=== PATIENT | male | born 1950 | race Caucasian/White ===

== ENCOUNTER 2016-07-29 07:53 | Inpatient (IN) | payer MEDICARE, MEDICAID ==
[2016-07-29 07:53] VITALS: BMI 30.9
--- NOTE | 2016-07-29 08:37 | C.PDOC ---
History Of Present Illness 65 yo male w/PMhx of ESRD on HD(MWF) come in for evaluation of Left sided chest pain intermittent for past 2-3 days. Pt describes pain as burning sensation and associated with abdominal pain, "bloody stool". Otherwise, pt denies recent illness, headache, dizziness, visual changes, focal deficits, palpitation, dyspnea, wheezing, cough, vomiting, food intolerance, back pain. Last dialysis- yesterday, completed. At the time of evaluation, pt appears somnolent , saying " I was unable to sleep normal with this pain", although not in any apparent distress. Time Seen by Provider: 07/29/16 08:00 Chief Complaint (Nursing): Chest Pain History Per: Patient History/Exam Limitations: no limitations Onset/Duration Of Symptoms: Days (2-3), Intermittent Episodes Current Symptoms Are (Timing): Still Present Severity: Moderate Quality: Burning Past Medical History Reviewed: Historical Data, Nursing Documentation, Vital Signs Vital Signs: Last Vital Signs Temp 98 F 07/29/16 15:44 Pulse 77 07/29/16 15:44 Resp 21 07/29/16 15:44 BP 156/69 H 07/29/16 15:44 Pulse Ox 99 07/29/16 15:44 - Medical History PMH: CAD, Diabetes, Gastrointestinal Ulcer, HTN, Hypercholesterolemia, End Stage Renal Disease, Chronic Kidney Disease Surgical History: CABG, Cholecystectomy - [facility] Procedures HEMODIALYSIS (01/02/13) MEASURE CARDIAC SAMPL & PRESSURE, BILATERAL, PERC (08/27/15) PACKED CELL TRANSFUSION (01/02/13) PERFORMANCE OF URINARY FILTRATION, MULTIPLE (08/27/15) PLAIN RADIOGRAPHY OF MULT COR A GRAFT USING OTH CONTRAST (08/27/15) PLAIN RADIOGRAPHY OF MULT COR ART USING OTH CONTRAST (08/27/15) PLAIN RADIOGRAPHY OF RIGHT AND LEFT HEART USING OTH CONTRAST (08/27/15) VENOUS CATHETERIZATION FOR RENAL DIALYSIS (01/02/13) Family History: States: Unknown Family Hx - Social History Hx Tobacco Use: Yes Hx Alcohol Use: No Hx Substance Use: No - Immunization History Hx Tetanus Toxoid Vaccination: No Hx Influenza Vaccination: Yes Hx Pneumococcal Vaccination: Yes Review Of Systems Except As Marked, All Systems Reviewed And Found Negative. Constitutional: Negative for: Fever, Chills Eyes: Negative for: Vision Change ENT: Negative for: Throat Pain Cardiovascular: Positive for: Chest Pain. Negative for: Palpitations, Orthopnea , Edema, Light Headedness Respiratory: Negative for: Cough, Shortness of Breath, Wheezing Gastrointestinal: Positive for: Nausea, Abdominal Pain, Melena, Hematochezia. Negative for: Vomiting, Diarrhea, Hematemesis, Rectal Pain Genitourinary: Negative for: Dysuria, Frequency Musculoskeletal: Negative for: Back Pain Neurological: Negative for: Weakness, Numbness, Altered Mental Status, Headache , Dizziness Physical Exam - Physical Exam Appears: Well, Non-toxic, No Acute Distress Skin: Normal Color, Warm, Dry, No Rash Eye(s): bilateral: PERRL Oral Mucosa: Moist Throat: Normal Neck: Normal, Supple Cardiovascular: Rhythm Regular Respiratory: Normal Breath Sounds, No Stridor, No Wheezing Gastrointestinal/Abdominal: Soft, Tenderness (moderate epigastric tenderness), No Distention, No Guarding, No Rebound Rectal: Rectal Tone (normal), No Hemorrhoids, No Tenderness Back: No CVA Tenderness Extremity: Normal ROM, No Pedal Edema, No Deformity, Other (Left upepr arm AV shunt, (+) thrill, no cellulitis.) Neurological/Psych: Oriented x3, Normal Speech ED Course And Treatment - Laboratory Results Result Diagrams: 07/29/16 08:40 07/29/16 08:40 Lab Interpretation: Abnormal ECG: Interpreted By Ms ECG Rhythm: Sinus Rhythm ECG Interpretation: No Acute Changes, No Changes From Prior Interpretation Of ECG: SR@91/min, LAD, Q wave in III, no acute T wave or ST-T changes. O2 Sat by Pulse Oximetry: 95 Pulse Ox Interpretation: Normal - Radiology CXR: Interpreted by Ms CXR Interpretation: Yes: No Acute Disease (compare to old study, no new acute changes, s/p CABG) - CT Scan/US CT abd/pelvis Other Rad Studies (CT/US): Radiology Report Reviewed CT/US Interpretation: Accession No. : [id number]. Patient Name / ID : DIAZ BAH / [id number]. Exam Date : 07/29/2016 09:43:12 ( Approved ). Study Comment : Sex / Age : M / 65Y. Creator : Kermit Hassan. Dictator : Kermit Hassan. Travel Coordinator : Polyethylene Combiner : Kermit Hassan. Approver2 : Report Date : 07/29/2016 10:12:55. My Comment : . PROCEDURE: CT Abdomen and Pelvis without intravenous contrast. HISTORY: diffuse abdominal pain. COMPARISON: Comparison is made to the previous study dated 09/07/2012. TECHNIQUE: Axial and reformatted coronal and sagittal CT images of the abdomen and pelvis were obtained without IV or oral contrast administration.. Contrast Dose: 0. Radiation dose: Total exam DLP = 434.4 mGy-cm. This CT exam was performed using one or more of the following dose reduction techniques: Automated exposure control, adjustment of the mA and/or kV according to patient size, and/or use of iterative reconstruction technique. FINDINGS: LOWER THORAX : No evidence of acute pathology at the lung bases. Cardiomegaly is again noted. LIVER: No evidence of acute pathology in the liver. Mild hepatomegaly is again noted. GALLBLADDER AND BILE DUCTS: Status post cholecystectomy. The CBD is mildly dilated likely due to prior cholecystectomy. PANCREAS: Unremarkable. No gross lesion or ductal dilatation. SPLEEN: Unremarkable. ADRENALS: Unremarkable. No mass. KIDNEYS AND URETERS: The kidneys are small in size. No evidence of hydronephrosis. Small calcifications seen likely vascular. VASCULATURE: Unremarkable. No aortic aneurysm. BOWEL: Post bowel surgery and anastomosis seen at the right abdomen. No evidence of bowel obstruction. APPENDIX: No evidence of appendicitis. PERITONEUM: Unremarkable. No free fluid. No free air. LYMPH NODES: Unremarkable. No enlarged lymph nodes. BLADDER: The urinary bladder is not distended. REPRODUCTIVE: Prostate is normal in size. BONES: Degenerative changes are again seen. Intramedullary gigi is partially imaged at the right femur. OTHER FINDINGS: None. IMPRESSION: No evidence of acute pathology in the abdomen and pelvis. Status post small bowel surgery. Re- demonstration of dilated bowel loop at the left abdomen. No evidence of bowel obstruction. Progress Note: On re-eavluation, pt remained unchanged. case discussed with p t 's PMD and admission to telemetry with Dx: CP r/o WI, bloody stool r /o GI bleed arranged. Disposition - Disposition Disposition: HOSPITALIZED Disposition Time: 10:20 Condition: FAIR - Clinical Impression Clinical Impression: Chest pain, ESRD (end stage renal disease) on dialysis, GI bleed
[2016-07-29 08:47] LABS: BASO % 0.6 % (0.0-2.0); EOS # 0.2 K/uL (0.0-0.7); EOS % 3.5 % (0.0-4.0); LYMPH # 0.9 K/uL (1.0-4.3); LYMPH % 13.2 % (20.0-40.0); MEAN CELL VOLUME 89.7 fL (80.0-94.0); MEAN CORPUSCULAR HEMOGLOBIN 29.8 pg (27.0-31.0); MEAN CORPUSCULAR HGB CONC 33.2 g/dL (33.0-37.0); MEAN PLATELET VOLUME 9.3 fL (7.2-11.7); MONO # 0.8 K/uL (0.0-0.8); MONO % 12.1 % (0.0-10.0); NRBC % 0.1 % (0.0-2.0); RED CELL DISTRIBUTION WIDTH 15.7 % (11.5-14.5); WHITE BLOOD COUNT 6.7 K/uL (4.8-10.8)
[2016-07-29 08:57] LABS: INR 0.9
[2016-07-29 09:04] LABS: POTASSIUM 4.2 mmol/L (3.6-5.2)
--- NOTE | 2016-07-29 09:04 | RAD ---
PROCEDURE: CHEST RADIOGRAPH, 1 VIEW HISTORY: chest pain COMPARISON: Comparison is made to 08/25/2015 FINDINGS: LUNGS: Clear. PLEURA: No pneumothorax or pleural fluid seen. CARDIOVASCULAR: Normal. OSSEOUS STRUCTURES: No significant abnormalities. VISUALIZED UPPER ABDOMEN: Normal. OTHER FINDINGS: None. IMPRESSION: No significant interval change
[2016-07-29 09:06] LABS: BILIRUBIN,TOTAL 0.7 mg/dL (0.2-1.3)
[2016-07-29 09:07] LABS: ALB/GLOB RATIO 1.3 (1.0-2.1); CALCIUM 9.3 mg/dl (8.6-10.4); TOTAL PROTEIN 7.8 g/dL (6.3-8.3)
[2016-07-29 09:18] LABS: TROPONIN I 0.024 ng/mL (0.00-0.120)
[2016-07-29 09:32] LABS: URINE BACTERIA RARE (<OCC); URINE BILIRUBIN NEGATIVE (NEGATIVE); URINE BLOOD NEGATIVE (NEGATIVE); URINE COLOR Yellow (YELLOW); URINE GLUCOSE (UA) 1+ mg/dL (Normal); URINE KETONE NEGATIVE (NEGATIVE); URINE LEUKOCYTE ESTERASE NEG Leu/uL (Negative); URINE PROTEIN 2+ mg/dL (NEGATIVE); URINE UROBILINOGEN NORMAL mg/dL (0.2-1.0); WBC URINE 1 /hpf (0-5)
--- NOTE | 2016-07-29 10:14 | CT ---
PROCEDURE: CT Abdomen and Pelvis without intravenous contrast HISTORY: diffuse abdominal pain COMPARISON: Comparison is made to the previous study dated 09/07/2012 TECHNIQUE: Axial and reformatted coronal and sagittal CT images of the abdomen and pelvis were obtained without IV or oral contrast administration.. Contrast Dose: 0 Radiation dose: Total exam DLP = 434.4 mGy-cm. This CT exam was performed using one or more of the following dose reduction techniques: Automated exposure control, adjustment of the mA and/or kV according to patient size, and/or use of iterative reconstruction technique. FINDINGS: LOWER THORAX: No evidence of acute pathology at the lung bases. Cardiomegaly is again noted. LIVER: No evidence of acute pathology in the liver. Mild hepatomegaly is again noted. GALLBLADDER AND BILE DUCTS: Status post cholecystectomy. The CBD is mildly dilated likely due to prior cholecystectomy. PANCREAS: Unremarkable. No gross lesion or ductal dilatation. SPLEEN: Unremarkable. ADRENALS: Unremarkable. No mass. KIDNEYS AND URETERS: The kidneys are small in size. No evidence of hydronephrosis. Small calcifications seen likely vascular VASCULATURE: Unremarkable. No aortic aneurysm. BOWEL: Post bowel surgery and anastomosis seen at the right abdomen. No evidence of bowel obstruction. APPENDIX: No evidence of appendicitis. PERITONEUM: Unremarkable. No free fluid. No free air. LYMPH NODES: Unremarkable. No enlarged lymph nodes. BLADDER: The urinary bladder is not distended. REPRODUCTIVE: Prostate is normal in size. BONES: Degenerative changes are again seen. Intramedullary gigi is partially imaged at the right femur. OTHER FINDINGS: None. IMPRESSION: No evidence of acute pathology in the abdomen and pelvis. Status post small bowel surgery. Re- demonstration of dilated bowel loop at the left abdomen. No evidence of bowel obstruction.
[2016-07-29] MEDS: Nitroglycerin 2% Ointment Foilpak UD TOP SCH ×3 (12:23→23:57)
--- NOTE | 2016-07-29 18:33 | CON ---
DATE: 07/29/2016 REASON FOR CONSULTATION: Chest pain. HISTORY OF PRESENT ILLNESS: The patient is a 65-year-old male who has a history of hyperten kari, end-stage renal disease on hemodialysis, presented because of retrosternal chest pain. The pat bhavani was evaluated in the recent past and a Myoview stress test reported an apical ischemia. At that time, the patient refused cardiac catheterization and the case was discussed with the primary physic tanner. The patient at this time is chest pain free. He denies any associated diaphoresis, dizziness o r shortness of breath. The patient describes his pain as burning retrosternal. SOCIAL HISTORY: The patient is currently a nonsmoker. MEDICATIONS: Crestor 5 mg once a day, Lopressor 50 mg twice a day, nitro paste half an inch q. 6 suresh rs, Percocet 1 tablet q. 8 hours, Protonix 40 mg intravenously daily. REVIEW OF SYSTEMS: No fever or chills. No vomiting or diarrhea. The patient did report bloody stoo l. PHYSICAL EXAMINATION: GENERAL: The patient is a middle-aged male who does not appear to be in any distress. VITAL SIGNS: Blood pressure 159/77, heart rate 83, temperature 97.3, respirations 18. HEENT: Normocephalic. NECK: No JVD. CHEST: Clear. HEART: S1, S2 regular. ABDOMEN: Soft. EXTREMITIES: No edema. LABORATORY DATA: CBC: WBC 6.7, hemoglobin 12.3, hematocrit 37, platelet count 191,000. SMA-7: Sod ium 133, potassium 4.2, chloride 84, CO2 of 31, glucose 141, BUN 32, creatinine 5.5. One set of trop onin is negative. ProBNP is 4010. PT, PTT within normal limits. CBC of 6.7, hemoglobin 12.3, hemat ocrit 37, platelet count 191,000. Urine drug screen is negative. Stool occult blood is negative. A bdomen and pelvis CT scan: No evidence of acute pathology. status post small bowel surgery. EKG revealed sinus rhythm at rate of 91, left atrial enlargement, inferior Q-waves were noted. ASSESSMENT: 1. Chest pain, rule out myocardial infarction. 2. History of positive Myoview stress test for apical ischemia in the past. 3. End-stage renal disease on hemodialysis. 4. Hypertension. RECOMMENDATIONS: Continue Crestor at 5 mg once a day, Lopressor 50 mg twice a day. Start aspirin 81 mg once a day. Obtain an echocardiogram. Monitor EKG and serial cardiac enzymes. A GI evaluation is recommended as well as a repeat hemoglobin and hematocrit levels. Christian Hebert MD cc: [id number] TT: 07/29/2016 18:32:46 Confirmation # [id number] Dictation # [id number] mn
[2016-07-29] MEDS: Oxycodone/Acetaminophen 5/325 mg Tab PO PRN (20:13)
[2016-07-30] MEDS: Nitroglycerin 2% Ointment Foilpak UD TOP SCH ×3 (05:41→18:07)
[2016-07-30 07:52] LABS: BASO % 0.5 % (0.0-2.0); EOS # 0.3 K/uL (0.0-0.7); EOS % 5.5 % (0.0-4.0); HEMATOCRIT 37.1 % (35.0-51.0); LYMPH # 1.4 K/uL (1.0-4.3); LYMPH % 27.1 % (20.0-40.0); MEAN CORPUSCULAR HEMOGLOBIN 29.7 pg (27.0-31.0); MEAN PLATELET VOLUME 9.9 fL (7.2-11.7); MONO # 0.6 K/uL (0.0-0.8); MONO % 11.7 % (0.0-10.0); NRBC % 0.1 % (0.0-2.0); RED CELL DISTRIBUTION WIDTH 15.9 % (11.5-14.5); WHITE BLOOD COUNT 5.1 K/uL (4.8-10.8)
[2016-07-30 08:00] LABS: POTASSIUM 4.4 mmol/L (3.6-5.2)
[2016-07-30 08:02] LABS: ALB/GLOB RATIO 1.3 (1.0-2.1); BILIRUBIN,TOTAL 0.6 mg/dL (0.2-1.3); TOTAL PROTEIN 7.3 g/dL (6.3-8.3)
--- NOTE | 2016-07-30 10:58 | CP.PCM.CON ---
History of Present Illness - History of Present Illness History of Present Illness: Covering Dr Mariscal CC: chest pain, abdominal pain HPI: 65 year old Diabetic Hypertensive man with ESRD admitted with chest pain, and lower abdominal cramps yesterday. Today he feels well. He mentioned he saw blood in stool once. he denies constipation or diarrhea. His Hemoglobin has remained stable at 12 since admission yesterday. Cardiology consult has been requested to evaluate chest pain. Patient has a cardiac history. History is somewhat limited as patient is a poor historian. He mentions he had surgery for bleeding ulcer about 5 years ago, not sure if he ever had Colonoscopy. Review of Systems - Cardiovascular Cardiovascular: Chest Pain - Respiratory Respiratory: absent: Dyspnea - Gastrointestinal Gastrointestinal: Abdominal Pain, Dyspepsia, Hematochezia. absent: Constipation , Hematemesis, Loose Stools - Genitourinary Genitourinary: Difficulty Urinating Past Patient History - Past Medical History & Family History Past Medical History?: Yes - Past Social History Smoking Status: Former Smoker - CARDIAC Hx Hypercholesterolemia: Yes Hx Hypertension: Yes - PULMONARY Hx Respiratory Disorders: No - NEUROLOGICAL Hx Neurological Disorder: No - HEENT Hx HEENT Problems: No - RENAL Hx Chronic Kidney Disease: Yes - ENDOCRINE/METABOLIC Hx Endocrine Disorders: Yes Hx Diabetes Mellitus Type 2: Yes - HEMATOLOGICAL/ONCOLOGICAL Hx Blood Disorders: No - INTEGUMENTARY Hx Dermatological Problems: No - MUSCULOSKELETAL/RHEUMATOLOGICAL Hx Falls: No - GASTROINTESTINAL Hx Gastrointestinal Disorders: Yes - GENITOURINARY/GYNECOLOGICAL Hx Genitourinary Disorders: No - PSYCHIATRIC Hx Substance Use: No - SURGICAL HISTORY Hx Cholecystectomy: Yes Hx Coronary Artery Bypass Graft: Yes - ANESTHESIA Hx Anesthesia: Yes Hx Anesthesia Reactions: No Meds Allergies/Adverse Reactions: Allergies Allergy/AdvReac Type Severity Reaction Status Date / Time No Known Allergies Allergy Verified 07/29/16 07:59 - Medications Medications: Current Medications Aspirin (Aspirin Chewable) 81 mg PO DAILY [facility] Metoprolol Tartrate (Lopressor) 50 mg PO BID [facility] Last Admin: 07/29/16 17:47 Dose: 50 mg Nitroglycerin (Nitro-Bid 2% Oint) 0.5 ea TOP Q6 [facility] Last Admin: 07/30/16 05:41 Dose: 0.5 ea Oxycodone/Acetaminophen (Percocet 5/325 Mg Tab) 1 tab PO Q8H PRN PRN Reason: Pain, moderate (4-7) Stop: 08/01/16 11:02 Last Admin: 07/29/16 20:13 Dose: 1 tab Pantoprazole Sodium (Protonix Inj) 40 mg IVP DAILY [facility] Rosuvastatin Calcium (Crestor) 5 mg PO HS [facility] Last Admin: 07/29/16 22:06 Dose: 5 mg Physical Exam - Constitutional Appears: Well, No Acute Distress - Head Exam Head Exam: NORMOCEPHALIC - Eye Exam Eye Exam: absent: Scleral icterus - Neck Exam Neck exam: Positive for: Normal Inspection - Respiratory Exam Respiratory Exam: Clear to Auscultation Bilateral - Cardiovascular Exam Cardiovascular Exam: REGULAR RHYTHM - GI/Abdominal Exam GI & Abdominal Exam: Soft. absent: Tenderness (Surgical scar) Results - Vital Signs Recent Vital Signs: Last Vital Signs Temp 97.5 F L 07/30/16 08:15 Pulse 65 07/30/16 08:15 Resp 20 07/30/16 08:15 BP 138/56 L 07/30/16 08:15 Pulse Ox 96 07/30/16 08:15 - Labs Result Diagrams: 07/30/16 07:38 07/30/16 07:38 Labs: Laboratory Results - last 24 hr 07/29/16 07/29/16 07/29/16 11:45 16:58 20:13 WBC RBC Hgb Hct MCV MCH MCHC RDW Plt Count MPV Neut % (Auto) Lymph % (Auto) Divide % (Auto) Eos % (Auto) Baso % (Auto) Neut # Lymph # Divide # Eos # Baso # Sodium Potassium Chloride Carbon Dioxide Anion Gap BUN Creatinine Est GFR ( Amer) Est GFR (Non-Af Amer) POC Glucose (mg/dL) 105 129 H Random Glucose Calcium Total Bilirubin AST ALT Alkaline Phosphatase Total Creatine Kinase 94 CK-MB (Mass) 1.48 Troponin I, Quant 0.0180 Total Protein Albumin Globulin Albumin/Globulin Ratio Triglycerides Cholesterol LDL Cholesterol Direct HDL Cholesterol 07/29/16 07/30/16 07/30/16 21:12 01:36 06:54 WBC RBC Hgb Hct MCV MCH MCHC RDW Plt Count MPV Neut % (Auto) Lymph % (Auto) Divide % (Auto) Eos % (Auto) Baso % (Auto) Neut # Lymph # Divide # Eos # Baso # Sodium Potassium Chloride Carbon Dioxide Anion Gap BUN Creatinine Est GFR ( Amer) Est GFR (Non-Af Amer) POC Glucose (mg/dL) 177 H 111 H Random Glucose Calcium Total Bilirubin AST ALT Alkaline Phosphatase Total Creatine Kinase 76 CK-MB (Mass) 1.19 Troponin I, Quant 0.0170 Total Protein Albumin Globulin Albumin/Globulin Ratio Triglycerides Cholesterol LDL Cholesterol Direct HDL Cholesterol 07/30/16 07/30/16 07:38 07:38 WBC 5.1 RBC 4.13 L Hgb 12.2 Hct 37.1 MCV 90.0 MCH 29.7 MCHC 33.0 RDW 15.9 H Plt Count 196 MPV 9.9 Neut % (Auto) 55.2 Lymph % (Auto) 27.1 Divide % (Auto) 11.7 H Eos % (Auto) 5.5 H Baso % (Auto) 0.5 Neut # 2.8 Lymph # 1.4 Divide # 0.6 Eos # 0.3 Baso # 0.0 Sodium 134 Potassium 4.4 Chloride 89 L Carbon Dioxide 28 Anion Gap 21 H BUN 48 H Creatinine 7.3 H D Est GFR ( Amer) 9 Est GFR (Non-Af Amer) 8 POC Glucose (mg/dL) Random Glucose 106 Calcium 9.0 Total Bilirubin 0.6 AST 22 ALT 22 Alkaline Phosphatase 110 Total Creatine Kinase CK-MB (Mass) Troponin I, Quant Total Protein 7.3 Albumin 4.1 Globulin 3.2 Albumin/Globulin Ratio 1.3 Triglycerides 186 H D Cholesterol 191 LDL Cholesterol Direct 101 HDL Cholesterol 35 Assessment & Plan (1) Chest pain Assessment and Plan: Atypical for cardiac disease, however patient has significant cardiac history and is on Plavix and ASA. Rec: Follow cardiology consult recommendations. If necessary will do EGD to evaluate chest pain after cardiology workup completed. Status: Acute (2) ESRD (end stage renal disease) on dialysis Status: Acute (3) GI bleed Assessment and Plan: 1 isolated episode of blood in stool, probably hemorrhoidal bleed by history. Stool OB is negative and Hgb is stable. GI workup can be planned electively after cardiology clearance. Continue Protonix for now. Status: Acute
--- NOTE | 2016-07-30 13:18 | PN ---
DATE: 07/30/2016 Today, patient is alert and awake, and denied any chest pain today. No shortness of breath. The pat ient denied any melena today. However, patient feels weak. PHYSICAL EXAMINATION: VITAL SIGNS: The patient has a blood pressure of 138/56, pulse 65, respirations 20, temperature 97.5 . NECK: Supple. No JVD. LUNGS: They have some fine rales at the bases. HEART: Regular rate and rhythm. ABDOMEN: Soft, nontender, positive bowel sounds. EXTREMITIES: There is no edema. BLOOD WORK: Shows WBCs 5.4, hemoglobin 12. , hematocrit 37.1 and platelet is 196. Chemistry josue wed that the sodium is 134, potassium 4.4, chloride 89, bicarb 28, BUN 48, creatinine 7.3. PLAN: We are going to continue the current medication and the echocardiogram is ordered and results pending. GI consult is appreciated and this was done by . Sd Garcia MD cc: [id number] TT: 07/30/2016 13:17:53 Confirmation # [id number] Dictation # [id number]
--- NOTE | 2016-07-30 17:42 | PN ---
DATE: 07/30/2016 SUBJECTIVE: The patient denies any rectal bleeding or chest pain. PHYSICAL EXAMINATION: VITAL SIGNS: Blood pressure 149/75, heart rate 67, temperature 97.6, respiration 20. HEENT: Normocephalic. NECK: No JVD. CHEST: Clear. HEART: S1, S2 regular. ABDOMEN: Soft. EXTREMITIES: No edema. LABORATORIES: Repeat hemoglobin and hematocrit 12.2 and 37.1 without any drop compared to yesterday. Platelet count and white count are within normal limits. Two sets of troponins are negative. ProB QUALITY ASSURANCE COACH is 4010. ASSESSMENT: 1. Chest pain, myocardial infarction was ruled out. 2. History of positive Myoview stress test with evidence of apical ischemia. 3. End-stage renal disease on hemodialysis. RECOMMENDATIONS: Continue current aspirin 81 mg once a day, Lopressor 50 mg once a day, Crestor at 5 mg once a day, Protonix at 40 mg intravenous once a day. Cardiac catheterization will be discussed with Dr. Garcia, and if the patient medically clear and agrees with, the patient will undergo the p rocedure. Christian Hebert MD cc: [id number] TT: 07/30/2016 17:41:42 Confirmation # [id number] Dictation # [id number] mn
[2016-07-31] MEDS: Nitroglycerin 2% Ointment Foilpak UD TOP SCH ×5 (00:23→23:54)
[2016-07-31 07:05] LABS: BASO % 0.5 % (0.0-2.0); EOS # 0.3 K/uL (0.0-0.7); LYMPH # 1.1 K/uL (1.0-4.3); RED CELL DISTRIBUTION WIDTH 15.9 % (11.5-14.5)
--- NOTE | 2016-07-31 07:20 | HP ---
HISTORY OF PRESENT ILLNESS: The patient is a 65-year-old male with history of end-stage renal disease on dialysis, diabetes, hypertension, history of CABG ____ . The patient came to the Emergency Room c omplaining of abdominal pain associated with bloody stool for the past 2-3 days and also patient is c omplaining of chest pain today. The patient stated that he was having somebody to move from his apar tment for the first 2 or 3 days and now patient is still having this chest pain, on and off, so toya nt came to the Emergency Room for evaluation. The patient was on medications including Lyrica, aspir in, glipizide and also patient was on Percocet. ALLERGIES: The patient has no known allergies. PAST MEDICAL HISTORY: Hypertension, diabetes, ____ end-stage renal disease, CABG, neuropathy, peptic ulcer disease. SOCIAL HISTORY: No social history. The patient denied smoking at this time and alcohol abuse. Has children. FAMILY HISTORY: No inherited disease. REVIEW OF SYSTEMS: RESPIRATORY: Shortness of breath on exertion. No cough. CARDIOVASCULAR: Intermittent chest pain ____ with diaphoresis. GASTROINTESTINAL: Abdominal pain, epigastric pain and also complained of bloody stool. GENITOURINARY: Anuria. The patient is on dialysis. NEUROLOGIC: The patient feels weak. PHYSICAL EXAMINATION: GENERAL: The patient is alert and awake, but kind of sleepy. VITAL SIGNS: Blood pressure 166/69, pulse is 77, respirations 21, temperature 98 degrees Fahrenheit. NECK: Supple. No JVD. LUNGS: Clear, distant. HEART: Regular rate and rhythm. Positive murmur. ABDOMEN: Soft, tenderness to the epigastric area and left lower quadrant. EXTREMITIES: There is no edema ____ . LABORATORY DATA: The patient had blood tests, revealed WBC 6.7, hemoglobin 12.3, hematocrit 37 and p latelet is 191. Chemistry: Sodium 132, potassium 4.2, chloride 84, bicarbonate 31, BUN 32, creatini ne 5.5, glucose 141, calcium 9.3. AST 27, ALT 19. Troponin is 0.02. BNP is 4010. The patient had EKG, normal sinus rhythm and ____ and nonspecific ST-T changes. DIAGNOSES: So the patient will be admitted with the diagnoses of: 1. Acute coronary syndrome. 2. Lower intestinal bleed. 3. End-stage renal disease. 4. Hypertension. 5. Diabetes. 6. Chronic abdominal pain from old surgical scar. PLAN: The patient will have a consult with Dr. Hebert, cardiology, Dr. Mariscal, GI, and echocardio gram will be ordered ____ . Sd Garcia MD cc: [id number] TT: 07/29/2016 19:08:17 rn
[2016-07-31 07:39] LABS: POTASSIUM 4.9 mmol/L (3.6-5.2)
[2016-07-31 07:41] LABS: ALB/GLOB RATIO 1.3 (1.0-2.1); BILIRUBIN,TOTAL 0.6 mg/dL (0.2-1.3); TOTAL PROTEIN 6.9 g/dL (6.3-8.3)
[2016-07-31 07:42] LABS: CALCIUM 8.7 mg/dl (8.6-10.4)
[2016-07-31 07:46] LABS: EOS % 4.1 % (0.0-4.0); HEMATOCRIT 36.7 % (35.0-51.0); LYMPH % 13.9 % (20.0-40.0); MEAN CELL VOLUME 91.3 fL (80.0-94.0); MEAN CORPUSCULAR HEMOGLOBIN 29.8 pg (27.0-31.0); MEAN CORPUSCULAR HGB CONC 32.6 g/dL (33.0-37.0); MEAN PLATELET VOLUME 10.3 fL (7.2-11.7); MONO # 1.1 K/uL (0.0-0.8); MONO % 12.8 % (0.0-10.0); NRBC % 0.1 % (0.0-2.0)
[2016-07-31 08:01] LABS: WHITE BLOOD COUNT 8.2 K/uL (4.8-10.8)
--- NOTE | 2016-07-31 08:20 | CP.PCM.PN ---
Subjective - Date & Time of Evaluation Date of Evaluation: 07/31/16 Time of Evaluation: 08:17 - Subjective Subjective: No bleeding or melena For Cardiac evaluation today Objective - Vital Signs/Intake and Output Vital Signs (last 24 hours): Temp Pulse Resp BP Pulse Ox 98.3 F 65 18 161/67 H 96 07/31/16 00:00 07/31/16 00:44 07/31/16 00:00 07/31/16 00:00 07/31/16 00:00 Intake and Output: 07/31/16 07/31/16 06:59 18:59 Intake Total 350 Balance 350 - Medications Medications: Current Medications Aspirin (Aspirin Chewable) 81 mg PO DAILY [facility] Last Admin: 07/30/16 10:57 Dose: Not Given Metoprolol Tartrate (Lopressor) 50 mg PO BID [facility] Last Admin: 07/30/16 18:07 Dose: 50 mg Nitroglycerin (Nitro-Bid 2% Oint) 0.5 ea TOP Q6 [facility] Last Admin: 07/31/16 05:32 Dose: 0.5 ea Oxycodone/Acetaminophen (Percocet 5/325 Mg Tab) 1 tab PO Q8H PRN PRN Reason: Pain, moderate (4-7) Stop: 08/01/16 11:02 Last Admin: 07/29/16 20:13 Dose: 1 tab Pantoprazole Sodium (Protonix Inj) 40 mg IVP DAILY [facility] Last Admin: 07/30/16 10:45 Dose: 40 mg Rosuvastatin Calcium (Crestor) 5 mg PO HS [facility] Last Admin: 07/30/16 21:15 Dose: 5 mg - Labs Labs: 07/31/16 07:00 07/31/16 07:00 PT 10.6 SECONDS (9.7-12.2) 07/29/16 08:40 INR 0.9 07/29/16 08:40 APTT 32 SECONDS (21-34) 07/29/16 08:40 - Constitutional Appears: No Acute Distress - Head Exam Head Exam: ATRAUMATIC, NORMOCEPHALIC - Eye Exam Eye Exam: EOMI, PERRL - Respiratory Exam Respiratory Exam: NORMAL BREATHING PATTERN - Cardiovascular Exam Cardiovascular Exam: REGULAR RHYTHM, +S1 - GI/Abdominal Exam GI & Abdominal Exam: Soft, Normal Bowel Sounds. absent: Tenderness - Extremities Exam Extremities Exam: Normal Inspection Assessment and Plan (1) History of peptic ulcer disease Status: Chronic (2) GI bleed Assessment & Plan: No further bleeding, H/H stable at present Plan for EGD tomorrow if cleared by cardiology or may be done as outpatient Status: Acute (3) Chest pain Status: Acute
--- NOTE | 2016-07-31 10:36 | CP.PCM.CON ---
History of Present Illness - History of Present Illness History of Present Illness: 65 y/o male with Hx/o ESRD on maintenance HD MWF, CAD/CABG, DM, HTN, hyperlipidemia presented to ER for c/o chest pain & abdominal pain. he had also noted blod in the stool. No blood per rectum since admission Renal consult is requested for Mx of ESRD Past Patient History - Past Medical History & Family History Past Medical History?: Yes - Past Social History Smoking Status: Former Smoker - CARDIAC Hx Hypercholesterolemia: Yes Hx Hypertension: Yes - PULMONARY Hx Respiratory Disorders: No - NEUROLOGICAL Hx Neurological Disorder: No - HEENT Hx HEENT Problems: No - RENAL Hx Chronic Kidney Disease: Yes Hx Dialysis: Yes - ENDOCRINE/METABOLIC Hx Endocrine Disorders: Yes Hx Diabetes Mellitus Type 2: Yes - HEMATOLOGICAL/ONCOLOGICAL Hx Blood Disorders: No - INTEGUMENTARY Hx Dermatological Problems: No - MUSCULOSKELETAL/RHEUMATOLOGICAL Hx Falls: No - GASTROINTESTINAL Hx Gastrointestinal Disorders: Yes - GENITOURINARY/GYNECOLOGICAL Hx Genitourinary Disorders: No - PSYCHIATRIC Hx Substance Use: No - SURGICAL HISTORY Hx Cholecystectomy: Yes Hx Coronary Artery Bypass Graft: Yes - ANESTHESIA Hx Anesthesia: Yes Hx Anesthesia Reactions: No Meds Allergies/Adverse Reactions: Allergies Allergy/AdvReac Type Severity Reaction Status Date / Time No Known Allergies Allergy Verified 07/29/16 07:59 - Medications Medications: Current Medications Aspirin (Aspirin Chewable) 81 mg PO DAILY [facility] Last Admin: 07/31/16 09:58 Dose: 81 mg Metoprolol Tartrate (Lopressor) 50 mg PO BID [facility] Last Admin: 07/31/16 09:58 Dose: 50 mg Nitroglycerin (Nitro-Bid 2% Oint) 0.5 ea TOP Q6 [facility] Last Admin: 07/31/16 05:32 Dose: 0.5 ea Oxycodone/Acetaminophen (Percocet 5/325 Mg Tab) 1 tab PO Q8H PRN PRN Reason: Pain, moderate (4-7) Stop: 08/01/16 11:02 Last Admin: 07/29/16 20:13 Dose: 1 tab Pantoprazole Sodium (Protonix Inj) 40 mg IVP DAILY [facility] Last Admin: 07/31/16 09:58 Dose: 40 mg Rosuvastatin Calcium (Crestor) 5 mg PO HS [facility] Last Admin: 07/30/16 21:15 Dose: 5 mg Physical Exam - Constitutional Appears: No Acute Distress - Head Exam Head Exam: ATRAUMATIC, NORMOCEPHALIC - Eye Exam Eye Exam: Normal appearance - ENT Exam ENT Exam: Mucous Membranes Dry - Neck Exam Additional comments: Neck supple - Respiratory Exam Additional comments: Lungs clear - Cardiovascular Exam Cardiovascular Exam: REGULAR RHYTHM - GI/Abdominal Exam GI & Abdominal Exam: Soft - Extremities Exam Additional comments: No edema or cyanosis Results - Vital Signs Recent Vital Signs: Last Vital Signs Temp 97.9 F 07/31/16 10:00 Pulse 63 07/31/16 10:00 Resp 20 07/31/16 10:00 BP 150/73 07/31/16 10:00 Pulse Ox 96 07/31/16 10:00 - Labs Result Diagrams: 07/31/16 07:00 07/31/16 07:00 Labs: Laboratory Results - last 24 hr 07/30/16 07/30/16 07/30/16 07:38 11:35 16:27 WBC RBC Hgb Hct MCV MCH MCHC RDW Plt Count MPV Neut % (Auto) Lymph % (Auto) Harris % (Auto) Eos % (Auto) Baso % (Auto) Neut # Lymph # Harris # Eos # Baso # Sodium Potassium Chloride Carbon Dioxide Anion Gap BUN Creatinine Est GFR ( Amer) Est GFR (Non-Af Amer) POC Glucose (mg/dL) 175 H 162 H Random Glucose Hemoglobin A1c 5.7 Calcium Total Bilirubin AST ALT Alkaline Phosphatase Total Protein Albumin Globulin Albumin/Globulin Ratio Triglycerides Cholesterol LDL Cholesterol Direct HDL Cholesterol 07/30/16 07/31/16 07/31/16 21:05 06:38 07:00 WBC RBC Hgb Hct MCV MCH MCHC RDW Plt Count MPV Neut % (Auto) Lymph % (Auto) Harris % (Auto) Eos % (Auto) Baso % (Auto) Neut # Lymph # Harris # Eos # Baso # Sodium 135 Potassium 4.9 Chloride 93 L Carbon Dioxide 24 Anion Gap 23 H BUN 67 H Creatinine 8.8 H* D Est GFR ( Amer) 7 Est GFR (Non-Af Amer) 6 POC Glucose (mg/dL) 150 H 91 Random Glucose 84 Hemoglobin A1c Calcium 8.7 Total Bilirubin 0.6 AST 21 ALT 21 Alkaline Phosphatase 87 Total Protein 6.9 Albumin 3.9 Globulin 3.0 Albumin/Globulin Ratio 1.3 Triglycerides 150 H Cholesterol 145 LDL Cholesterol Direct 69 HDL Cholesterol 31 07/31/16 07:00 WBC 8.2 D RBC 4.02 L Hgb 12.0 Hct 36.7 MCV 91.3 MCH 29.8 MCHC 32.6 L RDW 15.9 H Plt Count 199 MPV 10.3 Neut % (Auto) 68.7 Lymph % (Auto) 13.9 L Harris % (Auto) 12.8 H Eos % (Auto) 4.1 H Baso % (Auto) 0.5 Neut # 5.7 Lymph # 1.1 Harris # 1.1 H Eos # 0.3 Baso # 0.0 Sodium Potassium Chloride Carbon Dioxide Anion Gap BUN Creatinine Est GFR ( Amer) Est GFR (Non-Af Amer) POC Glucose (mg/dL) Random Glucose Hemoglobin A1c Calcium Total Bilirubin AST ALT Alkaline Phosphatase Total Protein Albumin Globulin Albumin/Globulin Ratio Triglycerides Cholesterol LDL Cholesterol Direct HDL Cholesterol Assessment & Plan - Assessment and Plan (Free Text) Assessment: ESRD CAD/CABG DM HTN Plan: Dialysis is scheduled for today Hb remains stable Blood pressures stable
[2016-07-31] MEDS ORDERED: Midazolam 2 MG/2 ML VIAL ONE (12:43)
[2016-07-31] MEDS ORDERED: Iodixanol 320 MG/ML 100 ML BOTTLE IV ONE (13:00)
--- NOTE | 2016-07-31 14:17 | CARDCATH ---
PROCEDURE DATE: 07/31/2016 The patient is a 65-year-old male who has history of hypertension, end-stage renal disease on hemodia lysis, history of coronary artery disease status post coronary artery bypass surgery many years ago. He presents because of chest pain. Myoview stress test was done in the past, which was consistent w ith apical ischemia. Cardiac catheterization was recommended. The procedure and its risks were full y explained to the patient, who understood and agreed for the procedure. PROCEDURE: Left and right coronary angiography performed with 6-Turkish JL4 and JR4 diagnostic cathet ers. Left ventriculogram and aortogram were performed with 6-Turkish pigtail catheter. The patient t olerated the procedure well without any complication. ANGIOGRAPHIC FINDINGS: Selective injection of left coronary artery revealed left main to be a small caliber narrow vessel with 20%-30% distal narrowing. Left main bifurcated into medium sized LAD and medium sized circumflex artery. There is insignificant distal left main narrowing. There is 50% ost ial LAD and 50%-60% mid circumflex artery. The stent in the proximal LAD was patent. Selectiv e injection of right coronary artery revealed total occlusion of that vessel in its very proximal seg ment at the stent site. The entire proximal and mid RCA segment were stented in the past. Selective injection of saphenous vein graft to the distal right coronary artery was patent with good proximal and distal anastomosis. KULKARNI angiography revealed an unharvested KULKARNI graft. Aortography revealed m ild dilated aortic root. There was no aortic insufficiency and there were no other identifiable stone ts. Left ventriculogram performed in ABERNATHY projection revealed normal wall motion. Ejection fraction estimated at 55%. CONCLUSION: Patent saphenous vein graft to the distal right coronary artery. The right coronary art froilan is totally occluded proximally. Insignificant disease of the distal left main as well as the ost ium of the left anterior descending with borderline mid circumflex artery lesion. Normal left ventri cular systolic function, ejection fraction estimated at 55%. RECOMMENDATIONS: Continue medical management. The patient will undergo hemodialysis this afternoon. Christian Hebert MD cc: [id number] TT: 07/31/2016 14:16:16 en
[2016-07-31] MEDS: Oxycodone/Acetaminophen 5/325 mg Tab PO PRN (21:18)
--- NOTE | 2016-07-31 22:11 | PN ---
DATE: 07/31/2016 SUBJECTIVE: Today, the patient is alert and awake and denies any chest pain. No shortness of breath at this time. The patient is feeling weak. PHYSICAL EXAMINATION: VITAL SIGNS: The patient has a blood pressure of 125/ , respirations 18, temperature 98 degrees Fahrenheit. NECK: Supple. No JVD. LUNGS: Clear. HEART: Regular rate and rhythm. Positive murmur. ABDOMEN: Soft and nontender. No palpable mass and mild epigastric tenderness. EXTREMITIES: There is an AV fistula on the left arm. There is no edema of the lower extremities. LABORATORY DATA: Showed WBC 8.2, hemoglobin 12, hematocrit is 36.7 and platelets 199. Chemistry: S odium 135, potassium 4.9, chloride 92, bicarbonate is 24, BUN 67 and creatinine 8.8 and glucose is 91 . Coagulation 10.6, INR 0.9. IMPRESSION: So the patient today is going to have a cardiac catheterization, and the cardiac cathete rization was done. The conclusion is patent saphenous vein grafts to the distal right coronary arter y, and the coronary totally occluded proximally, significant disease of the distal left main, a s well as the ostium on the left anterior descending with borderline mid circumflex artery lesion. N ormal left ventricular systolic disfunction. Ejection fraction estimated at 55%. The plan was to co ntinue medical management as per Dr. Hebert, the foreclosure clerk. PLAN: We are going to continue current medications and possibly discharge the patient when the patie nt is stable. Sd Garcia MD cc: [id number] TT: 07/31/2016 22:10:21 Confirmation # [id number] Dictation # [id number] mn
[2016-08-01] MEDS: Nitroglycerin 2% Ointment Foilpak UD TOP SCH ×2 (05:44→11:58)
--- NOTE | 2016-08-01 06:46 | CARD ---
APPROVED REPORT EKG Measurement Heart [id number] <Conclusion> Normal sinus rhythm Normal ECG
[2016-08-01 07:43] LABS: INR 0.9
[2016-08-01 07:45] LABS: BASO % 0.5 % (0.0-2.0); EOS # 0.3 K/uL (0.0-0.7); EOS % 4.1 % (0.0-4.0); HEMATOCRIT 36.3 % (35.0-51.0); LYMPH # 1.3 K/uL (1.0-4.3); LYMPH % 17.7 % (20.0-40.0); MEAN CELL VOLUME 90.6 fL (80.0-94.0); MEAN CORPUSCULAR HEMOGLOBIN 30.2 pg (27.0-31.0); MEAN CORPUSCULAR HGB CONC 33.3 g/dL (33.0-37.0); MEAN PLATELET VOLUME 9.9 fL (7.2-11.7); MONO % 13.9 % (0.0-10.0); NRBC % 0.1 % (0.0-2.0); WHITE BLOOD COUNT 7.2 K/uL (4.8-10.8)
[2016-08-01 07:55] LABS: POTASSIUM 4.6 mmol/L (3.6-5.2)
[2016-08-01 07:57] LABS: BILIRUBIN,TOTAL 0.6 mg/dL (0.2-1.3)
[2016-08-01 07:58] LABS: ALB/GLOB RATIO 1.3 (1.0-2.1); CALCIUM 8.8 mg/dl (8.6-10.4); TOTAL PROTEIN 6.9 g/dL (6.3-8.3)
[2016-08-01] MEDS ORDERED: Midazolam 2 MG/2 ML VIAL ONE (09:50)
[2016-08-01] MEDS ORDERED: Etomidate 20 mg/10ml Inj IV ONE (09:52)
[2016-08-01] MEDS ORDERED: Propofol 10 mg/ml Inj (20 ML) ONE (09:54)
[2016-08-01] MEDS ORDERED: Lactated Ringer's 500 ML IV ONE (09:58)
--- NOTE | 2016-08-01 10:11 | CP.PCM.PN ---
Subjective - Date & Time of Evaluation Date of Evaluation: 08/01/16 Time of Evaluation: 10:09 - Subjective Subjective: EGD (see full operative report) S/P partial gastrectomy with no ulcer, gastritis or bleeding small sessile polyp near margin of anastamosis that was removed with cold biopsy forceps No other pathology. Rec/ colonoscopy can be done as outpatient when cardiac meds have been adjusted and maximized Would need to be off anti-platelet Rx. Objective - Vital Signs/Intake and Output Vital Signs (last 24 hours): Temp Pulse Resp BP Pulse Ox 98.1 F 61 18 138/66 98 08/01/16 09:15 08/01/16 09:15 08/01/16 09:15 08/01/16 09:15 08/01/16 09:15 - Medications Medications: Current Medications Aspirin (Aspirin Chewable) 81 mg PO DAILY [facility] Last Admin: 08/01/16 09:07 Dose: Not Given Metoprolol Tartrate (Lopressor) 50 mg PO BID [facility] Last Admin: 08/01/16 09:08 Dose: 50 mg Nitroglycerin (Nitro-Bid 2% Oint) 0.5 ea TOP Q6 [facility] Last Admin: 08/01/16 05:44 Dose: 0.5 ea Oxycodone/Acetaminophen (Percocet 5/325 Mg Tab) 1 tab PO Q8H PRN PRN Reason: Pain, moderate (4-7) Stop: 08/01/16 11:02 Last Admin: 07/31/16 21:18 Dose: 1 tab Pantoprazole Sodium (Protonix Inj) 40 mg IVP DAILY [facility] Last Admin: 07/31/16 09:58 Dose: 40 mg Rosuvastatin Calcium (Crestor) 5 mg PO HS [facility] Last Admin: 07/31/16 21:18 Dose: 5 mg - Labs Labs: 08/01/16 07:09 08/01/16 07:09 PT 10.2 SECONDS (9.7-12.2) 08/01/16 07:09 INR 0.9 08/01/16 07:09 APTT 35 SECONDS (21-34) H 08/01/16 07:09 Assessment and Plan (1) History of peptic ulcer disease Status: Chronic (2) GI bleed Status: Acute (3) Chest pain Status: Acute
--- NOTE | 2016-08-01 10:37 | CARD ---
APPROVED REPORT EXAM: Two-dimensional and M-mode echocardiogram with Doppler and color Doppler. Other Information Quality : GoodRhythm : INDICATION Cardiac Disease: CAD Chest Pain ESRD RISK FACTORS Hypertension Hyperlipidemia M-Mode DIMENSIONS RVDd0.94 (2.1-3.2cm)Left Atrium (MM)3.90 (2.5-4.0cm) IVSd0.98 (0.7-1.1cm)Aortic Root3.08 (2.2-3.7cm) LVDd6.48 (4.0-5.6cm)Aortic Cusp Exc.2.07 (1.5-2.0cm) PWd1.13 (0.7-1.1cm)FS (%) 58 % LVDs2.73 (2.0-3.8cm)LVEF (%)87 (>50%) Mitral Valve MV E Wxrvnans529.0cm/sMV A Nysirqex183.0cm/sE/A ratio1.1 TDI E/Lateral E'0.0E/Medial E'0.0 Tricuspid Valve TR Peak [id number]/sTR Peak Gr.[id number] <Conclusion> Left ventricle: thickness: mild concentric thickening; size: normal; overall ejection fraction: 65%: diastolic filling pressures: elevated Mitral valve: leaflets: mild calcification: excursion: normal; no significant trans-mitral gradient: mild incompetence: left atrium: normal Aortic valve: leaflets: calcific thickening; excursion: normal; no significant trans-aortic gradient: No significant incompetence: aortic root: normal Right sided Structures: Pulmonary valve: normal; no significant incompetence; Tricuspid valve: normal; mild incompetence: Intra-cardiac hemodynamics: pulmonary systolic pressures: 36mmHg; central venous pressures: normal No pericardial effusion
--- NOTE | 2016-08-01 11:52 | CP.PCM.PN ---
Subjective - Date & Time of Evaluation Date of Evaluation: 08/01/16 Time of Evaluation: 10:30 - Subjective Subjective: No c/o CP or SOB Objective - Vital Signs/Intake and Output Vital Signs (last 24 hours): Temp Pulse Resp BP Pulse Ox 97.1 F L 53 L 24 128/58 L 99 08/01/16 10:10 08/01/16 10:40 08/01/16 10:40 08/01/16 10:40 08/01/16 10:40 - Medications Medications: Current Medications Aspirin (Aspirin Chewable) 81 mg PO DAILY [facility] Last Admin: 08/01/16 09:07 Dose: Not Given Metoprolol Tartrate (Lopressor) 50 mg PO BID [facility] Last Admin: 08/01/16 09:08 Dose: 50 mg Nitroglycerin (Nitro-Bid 2% Oint) 0.5 ea TOP Q6 [facility] Last Admin: 08/01/16 05:44 Dose: 0.5 ea Pantoprazole Sodium (Protonix Inj) 40 mg IVP DAILY [facility] Last Admin: 07/31/16 09:58 Dose: 40 mg Rosuvastatin Calcium (Crestor) 5 mg PO HS [facility] Last Admin: 07/31/16 21:18 Dose: 5 mg - Labs Labs: 08/01/16 07:09 08/01/16 07:09 PT 10.2 SECONDS (9.7-12.2) 08/01/16 07:09 INR 0.9 08/01/16 07:09 APTT 35 SECONDS (21-34) H 08/01/16 07:09 - Respiratory Exam Additional comments: Lungs clear - Cardiovascular Exam Cardiovascular Exam: REGULAR RHYTHM (No edema or cyanosis) Assessment and Plan - Assessment and Plan (Free Text) Assessment: ESRD CAD HTN DM Plan: Dalysis tolerated well yesterday Continue HD per schedule Labs stable
--- NOTE | 2016-08-01 11:55 | PN ---
DATE: 08/01/2016 SUBJECTIVE: The patient denies any chest pain or shortness of breath. No reports of groin bleeding. The patient underwent upper endoscopy and findings are consistent with gastroesophageal reflux as e vident by free flow of gastric contents in the lower third of the esophagus. Evidence of patent pylo ari. One gastrojejunostomy was found. The gastric pouch was a large size, was found. The gastrojej unal anastomosis was characterized by healthy-appearing mucosa. A single 6 mm sessile polyp was foun d in the lesser curvature. The polyp was removed. ASSESSMENT: 1. Chest pain, myocardial infarction is ruled out. 2. Coronary artery disease status post coronary artery bypass surgery 17 years ago. The patient has a patent saphenous vein graft to the right coronary artery. No other identifiable grafts were noted and the patient has borderline disease of the distal left main and left anterior descending and the mid circumflex artery which can be treated medically. 3. End-stage renal disease on hemodialysis. RECOMMENDATIONS: Continue aspirin 81 mg once a day, Protonix at 40 mg once a day, Lopressor at 50 mg twice a day, Crestor at 5 mg once a day. Christian Hebert MD cc: [id number] TT: 08/01/2016 11:54:41 Confirmation # [id number] Dictation # [id number] tn
--- NOTE | 2016-08-01 15:14 | CP.PCM.PN ---
Subjective - Date & Time of Evaluation Date of Evaluation: 08/01/16 Time of Evaluation: 11:20 - Subjective Subjective: Pt seen today with , denies any chest pain, sob, abdominal pain, dizziness, tolerating renal diet oob ambulating without sob s/p EGD today - Negative for bleeding ( see full report for details ) Objective - Vital Signs/Intake and Output Vital Signs (last 24 hours): Temp Pulse Resp BP Pulse Ox 97.1 F L 53 L 24 128/58 L 99 08/01/16 10:10 08/01/16 10:40 08/01/16 10:40 08/01/16 10:40 08/01/16 10:40 Intake and Output: 08/01/16 08/01/16 06:59 18:59 Intake Total 350 Balance 350 - Medications Medications: Current Medications Aspirin (Aspirin Chewable) 81 mg PO DAILY [facility] Last Admin: 08/01/16 11:57 Dose: 81 mg Metoprolol Tartrate (Lopressor) 50 mg PO BID [facility] Last Admin: 08/01/16 09:08 Dose: 50 mg Nitroglycerin (Nitro-Bid 2% Oint) 0.5 ea TOP Q6 [facility] Last Admin: 08/01/16 11:58 Dose: 0.5 ea Pantoprazole Sodium (Protonix Inj) 40 mg IVP DAILY [facility] Last Admin: 08/01/16 11:58 Dose: 40 mg Rosuvastatin Calcium (Crestor) 5 mg PO HS [facility] Last Admin: 07/31/16 21:18 Dose: 5 mg - Labs Labs: 08/01/16 07:09 08/01/16 07:09 PT 10.2 SECONDS (9.7-12.2) 08/01/16 07:09 INR 0.9 08/01/16 07:09 APTT 35 SECONDS (21-34) H 08/01/16 07:09 Assessment and Plan - Assessment and Plan (Free Text) Assessment: 65 yr old male admitted for chest pain/ and bloody stool s/p cardiac cath- recommends medical therapy s/p EGD - see full report for details D/W with Dr. Garcia, stable for discharge home otday and f/u with Dr. Garcia office next week and continue HD as scheduled Discharge plan discussed wit patient , who understand s and agrees with plan Pt instructed to return s to ED if symptoms returns
[2016-08-01 15:38] VITALS: TEMP 97.5; O2SAT 97
[2016-08-01 17:45] VITALS: BP 153/54; PULSE 58; RESP 16
--- NOTE | 2016-08-01 19:19 | PN ---
DATE: 08/01/2016 SUBJECTIVE: Today, the patient is alert and awake. He is not having any shortness of breath, no em[address] st pain, no palpitation and no dizziness. The patient has an EEG today. PHYSICAL EXAMINATION: VITAL SIGNS: The blood pressure is 163/64, pulse 68, respiration 18, temperature 97.5. NECK: Supple, no JVD. Some at the bases. HEART: Regular rate and rhythm. ABDOMEN: Soft, nontender, no palpable mass. EXTREMITIES: There is no edema, but there is an AV fistula to the left arm. The patient had an EEG today. is negative for bleeding. The patient now is stable and may be able to be discharged home. Sd Garcia MD cc: [id number] TT: 08/01/2016 19:18:22 Confirmation # [id number] Dictation # [id number] mn
--- NOTE | 2016-08-01 20:42 | DS ---
The patient is a 65-year-old male with history of end-stage renal disease, diabetes and hypertension, history of CABG. The patient came to the hospital and was complaining of chest pain and also the pa tient is bleeding from the rectum. The patient was admitted and had a consult with Dr. Mariscal, GI, paolo Hebert, cardiology. The patient has received his medications including nitro paste and also metoprolol and medication for the cholesterol and diabetes. The patient had a cardiac catheterizati on that has shown patent graft and ejection fraction of 55%. No sign of acute myocardial infarction at this point. Also, the patient had EGD. This was negative for bleeding. Today, the case was revi ewed and discussed with Gillian Diaz and, at this point, the patient may be discharged home. The cathy coronado will be able to come to my office within 1 week for followup. Sd Garcia MD cc: [id number] TT: 08/01/2016 20:42:08 victoria
--- NOTE | 2016-08-03 15:06 | CARD ---
APPROVED REPORT EKG Measurement Heart [id number] <Conclusion> Normal sinus rhythm Possible Left atrial enlargement Borderline ECG
== END 2016-08-01 18:00 | disposition home or self-care (01) | DRG 286 ==
LOC: C.ER 07:53 → C.9E 10:22 → C.5T 11:27
PROVIDERS: ADMIT Specialist; ATTEND Specialist
PROC: 4A023N7 Measurement of Cardiac Sampling and Pressure, Left Heart, Percutaneous Approach (ICD-10-PCS; principal; 2016-07-31)
PROC: B2151ZZ Fluoroscopy of Left Heart using Low Osmolar Contrast (ICD-10-PCS; 2016-07-31)
PROC: B2111ZZ Fluoroscopy of Multiple Coronary Arteries using Low Osmolar Contrast (ICD-10-PCS; 2016-07-31)
PROC: B2121ZZ Fluoroscopy of Single Coronary Artery Bypass Graft using Low Osmolar Contrast (ICD-10-PCS; 2016-07-31)
PROC: 5A1D00Z (ICD-10-PCS; 2016-07-31)
PROC: 0DB68ZX Excision of Stomach, Via Natural or Artificial Opening Endoscopic, Diagnostic (ICD-10-PCS; 2016-08-01)
DX: R07.89 Other chest pain (principal); N18.6 End stage renal disease; E11.22 Type 2 diabetes mellitus with diabetic chronic kidney disease; I12.0 Hypertensive chronic kidney disease with stage 5 chronic kidney disease or end stage renal disease; K62.5 Hemorrhage of anus and rectum; I25.10 Atherosclerotic heart disease of native coronary artery without angina pectoris; E11.40 Type 2 diabetes mellitus with diabetic neuropathy, unspecified; K21.9 Gastro-esophageal reflux disease without esophagitis; G89.28 Other chronic postprocedural pain; R10.9 Unspecified abdominal pain; Z95.1 Presence of aortocoronary bypass graft; Z99.2 Dependence on renal dialysis; Z79.4 Long term (current) use of insulin; Z87.891 Personal history of nicotine dependence; Z90.3 Acquired absence of stomach [part of]; Z90.49 Acquired absence of other specified parts of digestive tract

== ENCOUNTER 2017-02-26 11:42 | Inpatient (IN) | payer MEDICARE, MEDICAID ==
[2017-02-26 11:43] VITALS: BMI 30.9
[2017-02-26 12:13] LABS: BASO # 0.1 K/uL (0.0-0.2); BASO % 0.9 % (0.0-2.0); EOS # 0.2 K/uL (0.0-0.7); EOS % 2.8 % (0.0-4.0); LYMPH # 1.2 K/uL (1.0-4.3); LYMPH % 20.3 % (20.0-40.0); MEAN CELL VOLUME 90.4 fL (80.0-94.0); MEAN CORPUSCULAR HEMOGLOBIN 30.1 pg (27.0-31.0); MEAN CORPUSCULAR HGB CONC 33.3 g/dL (33.0-37.0); MEAN PLATELET VOLUME 9.6 fL (7.2-11.7); MONO # 0.4 K/uL (0.0-0.8); MONO % 6.2 % (0.0-10.0); NRBC % 0.1 % (0.0-2.0); RED CELL DISTRIBUTION WIDTH 14.9 % (11.5-14.5); WHITE BLOOD COUNT 6.1 K/uL (4.8-10.8)
--- NOTE | 2017-02-26 12:27 | RAD ---
PROCEDURE: CHEST RADIOGRAPH, 1 VIEW HISTORY: CHEST PAIN/GI BLEED COMPARISON: 07/29/2016. FINDINGS: LUNGS: The lungs are well inflated. PLEURA: No pneumothorax or pleural fluid seen. CARDIOVASCULAR: And clear the heart is normal in size. Status post median sternotomy OSSEOUS STRUCTURES: No significant abnormalities. VISUALIZED UPPER ABDOMEN: Normal. OTHER FINDINGS: None. IMPRESSION: No active pulmonary disease.
--- NOTE | 2017-02-26 12:36 | C.PDOC ---
History Of Present Illness 66 yo male w/PMHx of ESRD on HD ( MWF), HTN, IDDM, gastric ulcer with PMHX of GI bleed, CAD s/p CABG, hyperlipidemia come in to ED for evaluation of bloody vomiting #3-4 since yesterday and black colored stool noted yesterday. Pt c/o mild epigastric and left sided pain at present time. Otherwise, denies headache , dizziness, visual changes, focal deficits, neck apin, SOB, palpitation, diaphoresis, back pain. Pt admits, missed his dialysis today. AT present time, pt appears comfortable, not in any apparent distress. Time Seen by Provider: 02/26/17 12:23 Chief Complaint (Nursing): Chest Pain History Per: Patient Past Medical History Reviewed: Historical Data, Nursing Documentation, Vital Signs Vital Signs: Last Vital Signs Temp 97.4 F L 02/26/17 17:14 Pulse 98 H 02/26/17 17:14 Resp 20 02/26/17 17:14 BP 144/84 02/26/17 17:14 Pulse Ox 100 02/26/17 16:00 - Medical History PMH: CAD, Diabetes, Gastrointestinal Ulcer, HTN, Hypercholesterolemia, End Stage Renal Disease, Chronic Kidney Disease Surgical History: CABG, Cholecystectomy - [facility] Procedures EXCISION OF STOMACH, ENDO, DIAGN (07/29/16) FLUOROSCOPY OF LEFT HEART USING LOW OSMOLAR CONTRAST (07/29/16) FLUOROSCOPY OF MULT COR ART USING L OSM CONTRAST (07/29/16) FLUOROSCOPY OF SING COR A GRAFT USING L OSM CONTRAST (07/29/16) HEMODIALYSIS (01/02/13) MEASURE CARDIAC SAMPL & PRESSURE, BILATERAL, PERC (08/27/15) MEASURE OF CARDIAC SAMPL & PRESSURE, L HEART, PERC APPROACH (07/29/16) PACKED CELL TRANSFUSION (01/02/13) PERFORMANCE OF URINARY FILTRATION, MULTIPLE (08/27/15) PERFORMANCE OF URINARY FILTRATION, SINGLE (07/29/16) PLAIN RADIOGRAPHY OF MULT COR A GRAFT USING OTH CONTRAST (08/27/15) PLAIN RADIOGRAPHY OF MULT COR ART USING OTH CONTRAST (08/27/15) PLAIN RADIOGRAPHY OF RIGHT AND LEFT HEART USING OTH CONTRAST (08/27/15) VENOUS CATHETERIZATION FOR RENAL DIALYSIS (01/02/13) Family History: States: Unknown Family Hx - Social History Hx Tobacco Use: Yes Hx Alcohol Use: No Hx Substance Use: No - Immunization History Hx Tetanus Toxoid Vaccination: No Hx Influenza Vaccination: Yes Hx Pneumococcal Vaccination: Yes Review Of Systems Except As Marked, All Systems Reviewed And Found Negative. Constitutional: Negative for: Fever, Chills Cardiovascular: Positive for: Chest Pain Respiratory: Negative for: Cough, Shortness of Breath, Pleuritic Pain, Sputum, Wheezing Gastrointestinal: Positive for: Abdominal Pain, Melena, Hematemesis Musculoskeletal: Negative for: Neck Pain, Back Pain Neurological: Negative for: Weakness, Numbness, Altered Mental Status, Headache , Dizziness Physical Exam - Physical Exam Appears: Non-toxic, No Acute Distress Skin: Normal Color, Warm, Dry Eye(s): bilateral: PERRL Nose: No Flaring, No Discharge Oral Mucosa: Moist Throat: No Drooling Neck: Supple Cardiovascular: Rhythm Regular, No Murmur, No JVD Respiratory: No Decreased Breath Sounds, No Accessory Muscle Use, No Rales, No Rhonchi, No Stridor Gastrointestinal/Abdominal: Soft, Tenderness (mild epigastric ), No Distention, No Guarding Back: Normal Inspection Extremity: No Pedal Edema, No Swelling, Other (Left upper arm AV shunt, (+) thrill, (-) cellulitis) Neurological/Psych: Oriented x3, Normal Speech ED Course And Treatment - Laboratory Results Result Diagrams: 02/26/17 12:09 02/26/17 12:09 ECG: Interpreted By Me, Viewed By Me (and ED attenidng) ECG Interpretation: No Changes From Prior Interpretation Of ECG: SR@100/min, LAD, Q wave in III, no acute ST-T changes. Compare to old EKG from 07/29/16 and appears same, no new acute changes noted. - Radiology CXR: Interpreted by Me, Viewed By Me, Read By Radiologist CXR Interpretation: Yes: No Acute Disease Progress Note: Case dsicussed with pt's PMD and admission arranged to tele floor. Consult with neprology and GI DR.Eldin rhoades. Case discussed with DR. Valentino, will see patient in ED, requested 1U PRBC to be given prior the dialysis. Pt remained stable during the ED evaluation. Disposition - Disposition Disposition: HOSPITALIZED Disposition Time: :17 Condition: FAIR - Clinical Impression Clinical Impression: GI bleed, ESRD (end stage renal disease) on dialysis, Anemia
[2017-02-26 12:38] LABS: ALB/GLOB RATIO 1.6 (1.0-2.1); BILIRUBIN,TOTAL 0.3 mg/dL (0.2-1.3); CALCIUM 8.9 mg/dl (8.6-10.4); POTASSIUM 5.3 mmol/L (3.6-5.2); TOTAL PROTEIN 5.6 g/dL (6.3-8.3)
[2017-02-26 13:02] LABS: TROPONIN I 0.04 ng/mL (0.00-0.120)
[2017-02-26] MEDS ORDERED: Sodium Chloride 0.9% 500 ML IV ONE (13:11)
[2017-02-26] MEDS ORDERED: Lactated Ringer's 500 ML IV ONE (13:12)
[2017-02-26] MEDS ORDERED: Lactated Ringer's 1,000 ML ONE (14:01)
--- NOTE | 2017-02-26 14:31 | CT ---
PROCEDURE: CT Abdomen and Pelvis without Oral or IV contrast. HISTORY: hematemesis, melena COMPARISON: CT pelvis without contrast performed 07/29/16 TECHNIQUE: Contiguous axial images of the abdomen and pelvis. No oral or IV contrast administered. Coronal and Sagittal reformats generated and reviewed. Radiation dose: Total exam DLP = 887.89 mGy-cm. This CT exam was performed using one or more of the following dose reduction techniques: Automated exposure control, adjustment of the mA and/or kV according to patient size, and/or use of iterative reconstruction technique. FINDINGS: There is limited evaluation of the solid organs without the administration of IV contrast. LOWER THORAX: No visible consolidation, pleural effusion, or pneumothorax. LIVER: Unremarkable unenhanced appearance. GALLBLADDER AND BILE DUCTS: Cholecystectomy. PANCREAS: Unremarkable unenhanced appearance. SPLEEN: 12 mm and 15 mm probable splenules. Otherwise unremarkable unenhanced appearance. ADRENALS: Unremarkable unenhanced appearance. KIDNEYS AND URETERS: No hydronephrosis or obstructing renal calculus. BLADDER: The urinary bladder appears unremarkable. REPRODUCTIVE: The prostate gland measures approximately 2.8 x 4.4 cm. APPENDIX: The appendix appears within normal limits of caliber. No secondary signs of acute appendicitis. BOWEL: The stomach is nondistended. Lack of oral contrast limits evaluation for bowel pathology. The bowel loops appear within normal limits of caliber without evidence of intestinal obstruction. Postsurgical changes within the left upper quadrant with bowel anastomotic suture material evident. Absence of oral contrast severely limits evaluation of this region and underlying neoplasm cannot be adequately assessed by CT. Correlate clinically. PERITONEUM: No significant free fluid. No definite free air. LYMPH NODES: No bulky lymphadenopathy identified. VASCULATURE: Dense atherosclerotic calcifications of the aorta. No aortic aneurysm. BONES: Postsurgical changes of the right femur. Osseous demineralization. Degenerative changes. OTHER FINDINGS: None. IMPRESSION: Postsurgical changes within the left upper quadrant with bowel anastomotic suture material evident. Absence of oral contrast severely limits evaluation of this region and presence of an underlying neoplasm cannot be adequately assessed by CT. Correlate clinically. Cholecystectomy.
--- NOTE | 2017-02-26 15:24 | CP.PCM.CON ---
History of Present Illness - History of Present Illness History of Present Illness: Initial Nephrology Consultation: Assessment: critical Anemia of Acute blood loss, upper GI bleed Diabetic chronic Kidney Disease (E11.22) Hypertensive Chronic Kidney Disease (I12.0) End stage renal disease (N18.6) dependence on hemodialysis (Z99.2) (MWF) via AVG Anemia (D64.9), Hyperphosphatemia (E83.39), Secondary Hyperparathyroidism (E21.1 ), HTN (I12.0) CAD s/p CABG, active smoker much high BUN likely contributed by upper GI bleed, superimposed on due to ESRD status Plan: Will plan for HD today as ordered, as tolerated by hemodynamics (stable for now) . start with Nephrovite 1 tab/day once orally accepting. PRBC 1 unit with HD today. monitor Hb/hct. transfuse PRBC further as needed. last HB 12 on 02/19/17. will give epogen and IV iron with HD maintain hemodyanmics stable, hold BP meds Glycemic control Further work up/management as per primary team Dose meds/antibiotics (if needed) for ESRD status. Avoid fleets enema/magnesium based laxatives. GI evaluation phos binders once orally accepting. pt on PPI favors normal saline over LR as choice of fluid in ESRD (mainly to avoid K in replacement fluids) Thanks for allowing me to participate in care of your patient. Will follow patient with you. Please call if any Qs. d/w ER Dr Solo Valentino Office: [phone] Chief Complaint;vomitting blood HPI: Pt is a 66 M with hx of ESRD on hemodialysis (MWF) via AVG, last dialysis sunday, chronic anemia, hyperphosphatemia, secondary hyperparathyroidism, Diabetes Mellitus, hypertension, CAD s/p CABG, active smoker, hx of partial gastrectomy presented with complaints of multple episode of vomitting with fresh blood and dark blood stool x 1 day. he also felt dizzy. feels sick. c/o upper abdomen pain Denies chest pain, palpitation, shortness of breath, leg swelling ROS: Constitutional Symptoms: Denies fever. No chills. No Recent Weight Changes Eyes: denies change in vision, denies watery eyes, denies double vision Ears/Nose/Mouth/Throat: Denies Abnormal Taste. No Bad breath or Bad Taste. Cardiovascular: No chest pain. No palpitations. Pulmonary: No shortness of breath no cough. Gastrointestinal:c/o abdominal pain c/o nausea. c/o vomiting. Denies change in bowel habits.c/o Bleeding Genitourinary: makes small urine. No associated pain or blood. Neurological: Denies headaches. c/o dizziness. c/o loss of balance. Denies weakness, denies tingling/numbness Dermatological: No Rash or Bruising or ulcers. Psychiatric: Denies Anxiety. No depression. Denies hallucinations. Rheumatological: No joint pain. Denies Joint swelling Endocrine: Denies over tiredness. Denies Fatigue and denies Heat/Cold Intolerance. All other negative. Physical Examination: General Appearance: Comfortable, in no acute respiratory distress, co-operative . ill appearing Vitals reviewed and noted as below Head; Atraumatic, normocephalic ENT: no ulcers no thrush. Tongue is midline. Oropharynx: no rash or ulcers. EYES: Pupils are equal, round and reactive to light accommodation. Eye muscles and extraocular movement intact. Sclera is anicteric. Neck; supple no lymphadenopathy, no thyromegaly or bruit Lungs: Normal respiratory rate/effort. Breath sounds bilateral equal and clear Heart: Increased rate. s1s2 normal. No rub or gallop. Extremities: no edema. No varicose veins Neurological: Patient is alert, awake and oriented to person, place and time. No focal deficit. Strength bilateral appropriate and equal Skin: Warm and dry. Normal turgor. No rash. Palpitation: Normal elasticity for age Abdomen: Abdomen is soft. Bowel sounds +. There is epigastric abdominal tenderness, no guarding/rigidity or organomegaly. prior surgical scars+ Psych: normal insight and normal affect/mood MSK: no joint tenderness or swelling. Digits and nails normal, no deformity : kidney or bladder not palpable Access: AVG Labs/imaging reviewed. Past medical history, past surgical history, family history, social history, allergy reviewed and noted as below Family Hx: no hx of CKD. Non contributory Past Patient History - Past Medical History & Family History Past Medical History?: Yes - Past Social History Smoking Status: Former Smoker - CARDIAC Hx Hypercholesterolemia: Yes Hx Hypertension: Yes - PULMONARY Hx Respiratory Disorders: No - NEUROLOGICAL Hx Neurological Disorder: No - HEENT Hx HEENT Problems: No - RENAL Hx Chronic Kidney Disease: Yes - ENDOCRINE/METABOLIC Hx Diabetes Mellitus Type 2: Yes - HEMATOLOGICAL/ONCOLOGICAL Hx Blood Disorders: No - INTEGUMENTARY Hx Dermatological Problems: No - MUSCULOSKELETAL/RHEUMATOLOGICAL Hx Falls: No - GASTROINTESTINAL Hx Gastrointestinal Disorders: Yes - GENITOURINARY/GYNECOLOGICAL Hx Genitourinary Disorders: No - PSYCHIATRIC Hx Substance Use: No - SURGICAL HISTORY Hx Cholecystectomy: Yes Hx Coronary Artery Bypass Graft: Yes - ANESTHESIA Hx Anesthesia: Yes Hx Anesthesia Reactions: No Meds Allergies/Adverse Reactions: Allergies Allergy/AdvReac Type Severity Reaction Status Date / Time No Known Allergies Allergy Verified 07/29/16 07:59 - Medications Medications: Current Medications Epoetin Adam (Procrit) 10,000 [place] [facility] [place]ric Sodium Gluconate Complex (Ferrlecit) 125 mg IVPB [facility] [place] Stop: 03/07/17 09:01 Lactated Ringer's (Lactated Ringer's) 500 mls @ 150 mls/hr IV .Q3H20M ONE Stop: 02/26/17 16:31 Last Admin: 02/26/17 14:15 Dose: 150 mls/hr Results - Vital Signs Recent Vital Signs: Last Vital Signs Temp 98 F 02/26/17 11:50 Pulse 100 H 02/26/17 11:50 Resp 20 02/26/17 11:50 BP 119/57 L 02/26/17 11:50 Pulse Ox 95 02/26/17 11:50 - Labs Result Diagrams: 02/26/17 12:09 02/26/17 12:09 Labs: Laboratory Results - last 24 hr 02/26/17 02/26/17 02/26/17 12:09 12:09 12:09 WBC 6.1 RBC 2.55 L Hgb 7.7 L D Hct 23.0 L MCV 90.4 MCH 30.1 MCHC 33.3 RDW 14.9 H Plt Count 190 MPV 9.6 Neut % (Auto) 69.8 Lymph % (Auto) 20.3 Cherry % (Auto) 6.2 Eos % (Auto) 2.8 Baso % (Auto) 0.9 Neut # 4.2 Lymph # 1.2 Cherry # 0.4 Eos # 0.2 Baso # 0.1 PT 11.6 INR 1.0 APTT 29 Sodium 142 Potassium 5.3 H Chloride 103 Carbon Dioxide 22 Anion Gap 23 H BUN 139 H* D Creatinine 8.5 H* Est GFR ( Amer) 8 Est GFR (Non-Af Amer) 6 Random Glucose 112 H Calcium 8.9 Total Bilirubin 0.3 AST 20 ALT 34 Alkaline Phosphatase 60 Total Creatine Kinase 94 CK-MB (Mass) 1.77 Troponin I 0.0400 Total Protein 5.6 L Albumin 3.4 L Globulin 2.2 Albumin/Globulin Ratio 1.6 Blood Type Antibody Screen 02/26/17 12:46 WBC RBC Hgb Hct MCV MCH MCHC RDW Plt Count MPV Neut % (Auto) Lymph % (Auto) Cherry % (Auto) Eos % (Auto) Baso % (Auto) Neut # Lymph # Cherry # Eos # Baso # PT INR APTT Sodium Potassium Chloride Carbon Dioxide Anion Gap BUN Creatinine Est GFR ( Amer) Est GFR (Non-Af Amer) Random Glucose Calcium Total Bilirubin AST ALT Alkaline Phosphatase Total Creatine Kinase CK-MB (Mass) Troponin I Total Protein Albumin Globulin Albumin/Globulin Ratio Blood Type O POSITIVE Antibody Screen Negative
[2017-02-26] MEDS: Ferric Sodium Gluconat Complex 62.5 mg/5 ml Vial IVPB SCH (18:12)
--- NOTE | 2017-02-26 18:25 | CP.PCM.PN ---
Subjective - Date & Time of Evaluation Date of Evaluation: 02/26/17 Time of Evaluation: 17:00 - Subjective Subjective: House Resident Note Asked by nursing to evaluate patient for chest pain.Patient reports midsternal burning chest pain since 11am. Patient states he has a history of hypertension and ESRD. Ordered BOBBY x 1 and EKG x 1. EKG showed normal sinus rhythm. Patient was given Morphine 0.5mg IV, instead of aspirin due to complaint of GI bleed. Patient re-evaluated later, resting comfortably. BOBBY pending Objective - Vital Signs/Intake and Output Vital Signs (last 24 hours): Temp Pulse Resp BP Pulse Ox 97.4 F L 98 H 20 144/84 100 02/26/17 17:14 02/26/17 17:14 02/26/17 17:14 02/26/17 17:14 02/26/17 16:00 Intake and Output: 02/26/17 02/26/17 06:59 18:59 Intake Total 0 Balance 0 - Medications Medications: Current Medications Dicyclomine HCl (Bentyl) 10 mg PO BID NIKIA Epoetin Adam (Procrit) 10,000 unit IV MWF [facility] Ferric Sodium Gluconate Complex (Ferrlecit) 125 mg IVPB MWF [facility] Stop: 03/07/17 09:01 Last Admin: 02/26/17 18:12 Dose: 125 mg Metoclopramide HCl (Reglan) 5 mg IVP TID NIKIA Metoprolol Tartrate (Lopressor) 50 mg PO BID NIKIA Pantoprazole Sodium (Protonix Inj) 40 mg IVP DAILY NIKIA Rosuvastatin Calcium (Crestor) 5 mg PO HS NIKIA - Labs Labs: 02/26/17 12:09 02/26/17 12:09 PT 11.6 SECONDS (9.7-12.2) 02/26/17 12:09 INR 1.0 02/26/17 12:09 APTT 29 SECONDS (21-34) 02/26/17 12:09
[2017-02-26 18:27] LABS: TROPONIN I 0.059 ng/mL (0.00-0.120)
[2017-02-26] MEDS: Epoetin Alfa 10,000 unit/ml Dialysis IV SCH (18:29)
[2017-02-26] MEDS: (Novolog) Insulin Aspart, Recombinant 100 u/ml 10 ml vial SC SCH (21:29)
[2017-02-26] MEDS: Dextrose 5%/0.45% NS 1,000 ML IV SCH (21:47)
[2017-02-26] MEDS ORDERED: Oxycodone/Acetaminophen 5/325 mg Tab PO SCH (22:00)
[2017-02-27] MEDS ORDERED: Nitroglycerin 2% Ointment Foilpak UD TOP SCH
[2017-02-27] MEDS: Nitroglycerin 2% Ointment Foilpak UD TOP SCH ×4 (00:07→17:51)
[2017-02-27 01:02] LABS: TROPONIN I 0.103 ng/mL (0.00-0.120)
[2017-02-27] MEDS: Oxycodone/Acetaminophen 5/325 mg Tab PO PRN ×2 (01:13→17:55)
--- NOTE | 2017-02-27 05:01 | HP ---
HISTORY OF PRESENT ILLNESS: The patient is a 66-year-old male with history of diabetes, hypertension, CABG, end-stage renal disease, and the patient came to the Emergency Room complaining of hematemesis and melena. Patient is still having vomiting of black secretions and gastric juice since yesterday and also having black tarry stool. Patient also was feeling weak and complaining of some mild chest pain. So patient came to the Emergency Room where patient was showing some very abnormal blood tests, and patient was admitted. ALLERGIES: THE PATIENT HAS NO KNOWN ALLERGY. PAST MEDICAL HISTORY: As I mentioned, history of hypertension, diabetes, end-stage renal disease, cardiac arrhythmia, CAD, also chronic abdominal pain, and also history of CABG. PAST SURGICAL HISTORY: Significant for a cholecystectomy with complication of cholangitis. SOCIAL HISTORY: The patient has children. No smoking. Denies alcohol. FAMILY HISTORY: No inherited disease. REVIEW OF SYSTEMS: RESPIRATORY SYSTEM: Patient has some shortness of breath on exertion. CARDIOVASCULAR: Patient had been having some chest pain before, but now the patient is chest pain free. GASTROINTESTINAL: Patient was complaining of nausea and vomiting, but now the patient denies any vomiting or nausea. GENITOURINARY: No dysuria or anuria. NEUROLOGIC: Patient feels weak. PHYSICAL EXAMINATION: GENERAL: Patient is alert and awake, and oriented x3. VITAL SIGNS: Patient has a blood pressure of 162/80, now blood pressure 162/74 at 1953 hours, pulse is 99, respirations 16, temperature 97.8. HEENT: Eyes, pale conjunctiva. NECK: Supple. No JVD. LUNGS: Clear. HEART: Regular rate and rhythm. Positive murmur. ABDOMEN: Soft, mild epigastric tenderness. Positive bowel sounds, no palpable mass. EXTREMITIES: There is no edema. LABORATORY DATA: The labs showed WBC 6.1, hemoglobin 7.7, hematocrit 23, platelet is 190. Chemistry showed that the sodium 142, potassium 5.2, chloride 103, bicarb is 22, BUN 129, creatinine 8.5, glucose 112. Albumin 2.4, total protein 5.6, and troponin is 0.04 and 0.05. The sugar was 63, 60, and 61. After having some juice, the sugar was 81. DIAGNOSIS: Gastrointestinal bleed. Patient has a history of in the past; end-stage renal disease; coronary artery disease; chest pain, rule out myocardial infarction; hypertension; and chronic abdominal pain. So patient did have a consult with TERESITA Gary and also is having consult with Dr. Hebert of Cardiology because the patient has chest pain and history of cardiomyopathy. Sd Garcia MD
[2017-02-27 07:31] LABS: BASO % 0.6 % (0.0-2.0); EOS # 0.2 K/uL (0.0-0.7); EOS % 4.1 % (0.0-4.0); HEMATOCRIT 24.9 % (35.0-51.0); LYMPH # 1.2 K/uL (1.0-4.3); LYMPH % 24.1 % (20.0-40.0); MEAN CELL VOLUME 88.5 fL (80.0-94.0); MEAN CORPUSCULAR HGB CONC 33.9 g/dL (33.0-37.0); MEAN PLATELET VOLUME 9.8 fL (7.2-11.7); MONO # 0.5 K/uL (0.0-0.8); MONO % 8.9 % (0.0-10.0); RED CELL DISTRIBUTION WIDTH 14.7 % (11.5-14.5); WHITE BLOOD COUNT 5.1 K/uL (4.8-10.8)
[2017-02-27] MEDS: (Novolog) Insulin Aspart, Recombinant 100 u/ml 10 ml vial SC SCH ×4 (08:25→21:38)
--- NOTE | 2017-02-27 14:20 | CP.PCM.PN ---
Subjective - Date & Time of Evaluation Date of Evaluation: 02/27/17 Time of Evaluation: 14:20 Objective - Vital Signs/Intake and Output Vital Signs (last 24 hours): Temp Pulse Resp BP Pulse Ox 98.0 F 77 20 117/64 97 02/27/17 08:46 02/27/17 13:19 02/27/17 08:46 02/27/17 13:19 02/27/17 08:46 Intake and Output: 02/27/17 02/27/17 06:59 18:59 Output Total 150 Balance -150 - Medications Medications: Current Medications Acetaminophen (Tylenol 325mg Tab) 650 mg PO Q6 PRN PRN Reason: Pain, Mild (1-3) Epoetin Adam (Procrit) 10,[address] [facility] [place] Last Admin: 02/26/17 18:29 Dose: 10,000 unit Ferric Sodium Gluconate Complex (Ferrlecit) [address] [facility] [place] Stop: 03/07/17 09:01 Last Admin: 02/26/17 18:12 Dose: 125 mg Hydralazine HCl (Apresoline) 25 mg PO Q8 [facility] Last Admin: 02/27/17 13:20 Dose: Not Given Dextrose/Sodium Chloride (Dextrose 5%/0.45% Ns 1000 Ml) 1,000 mls @ 50 mls/hr IV .Q20H [facility] Last Admin: 02/26/17 21:47 Dose: 50 mls/hr Insulin Aspart (Novolog) 0 unit SC ACHS [facility] PRN Reason: Protocol Last Admin: 02/27/17 12:33 Dose: Not Given Metoprolol Tartrate (Lopressor) 50 mg PO BID [facility] Last Admin: 02/27/17 10:24 Dose: Not Given Nitroglycerin (Nitro-Bid 2% Oint) 1 ea TOP Q6 [facility] Last Admin: 02/27/17 12:54 Dose: 1 ea Ondansetron HCl (Zofran Tab) 4 mg PO Q8 PRN PRN Reason: Nausea/Vomiting Oxycodone/Acetaminophen (Percocet 5/325 Mg Tab) 1 tab PO Q8 PRN PRN Reason: Pain, moderate (4-7) Stop: 03/01/17 22:01 Last Admin: 02/27/17 01:13 Dose: 1 tab Pantoprazole Sodium (Protonix Inj) 40 mg IVP DAILY [facility] Last Admin: 02/27/17 10:22 Dose: 40 mg Rosuvastatin Calcium (Crestor) 5 mg PO HS [facility] Last Admin: 02/26/17 21:44 Dose: 5 mg Sevelamer Carbonate (Renvela) 800 mg PO TIDCC [facility] Vitamin B Complex/Vit C/Folic Acid (Nephro-Benjamin) 1 tab PO 0800 [facility] - Labs Labs: 02/27/17 07:17 02/26/17 12:09 PT 11.6 SECONDS (9.7-12.2) 02/26/17 12:09 INR 1.0 02/26/17 12:09 APTT 29 SECONDS (21-34) 02/26/17 12:09
--- NOTE | 2017-02-27 14:37 | CP.PCM.PN ---
Subjective - Date & Time of Evaluation Date of Evaluation: 02/27/17 Time of Evaluation: 14:35 - Subjective Subjective: Follow up Nephrology Consultation: Assessment: stable Anemia of Acute blood loss, upper GI bleed Diabetic chronic Kidney Disease (E11.22) Hypertensive Chronic Kidney Disease (I12.0) End stage renal disease (N18.6) dependence on hemodialysis (Z99.2) (MWF) via AVG Anemia (D64.9), Hyperphosphatemia (E83.39), Secondary Hyperparathyroidism (E21.1 ), HTN (I12.0) CAD s/p CABG, active smoker much high BUN likely contributed by upper GI bleed, superimposed on due to ESRD status Plan: Will plan for HD tomorrow as ordered, no acute need today. start with Nephrovite 1 tab/day once orally accepting. transfuse PRBC further as needed. last HB 12 on 02/19/17. will give epogen and IV iron with HD maintain hemodyanmics stable, BP controlled GI evaluation phos binders once orally accepting. pt on PPI Glycemic control check labs in AM As ordered Further work up/management as per primary team Dose meds/antibiotics (if needed) for ESRD status. Avoid fleets enema/magnesium based laxatives. Thanks for allowing me to participate in care of your patient. Will follow patient with you. Please call if any Qs. Dr Solo Valentino Office: [phone] Chief Complaint; none now HPI: Pt is a 66 M with hx of ESRD on hemodialysis (MWF) via AVG, last dialysis sunday, chronic anemia, hyperphosphatemia, secondary hyperparathyroidism, Diabetes Mellitus, hypertension, CAD s/p CABG, active smoker, hx of partial gastrectomy presented with complaints of multple episode of vomitting with fresh blood and dark blood stool x 1 day. he also felt dizzy. feels sick. c/o upper abdomen pain ROS: today feels better. no further vomitting. Denies chest pain, palpitation, shortness of breath, leg swelling now Physical Examination: General Appearance: Comfortable, in no acute respiratory distress, co-operative . better appearing Vitals reviewed and noted as below Head; Atraumatic, normocephalic ENT: no ulcers no thrush. Tongue is midline. Oropharynx: no rash or ulcers. EYES: Pupils are equal, round and reactive to light accommodation. Eye muscles and extraocular movement intact. Sclera is anicteric. Neck; supple no lymphadenopathy, no thyromegaly or bruit Lungs: Normal respiratory rate/effort. Breath sounds bilateral equal and clear Heart: normal rate. s1s2 normal. No rub or gallop. Extremities: no edema. No varicose veins Neurological: Patient is alert, awake and oriented to person, place and time. No focal deficit. Strength bilateral appropriate and equal Skin: Warm and dry. Normal turgor. No rash. Palpitation: Normal elasticity for age Abdomen: Abdomen is soft. Bowel sounds +. There is epigastric abdominal tenderness, no guarding/rigidity or organomegaly. prior surgical scars+ Psych: normal insight and normal affect/mood MSK: no joint tenderness or swelling. Digits and nails normal, no deformity : kidney or bladder not palpable Access: AVG Labs/imaging reviewed. Past medical history, past surgical history, family history, social history, allergy reviewed and noted as below Family Hx: no hx of CKD. Non contributory Objective - Vital Signs/Intake and Output Vital Signs (last 24 hours): Temp Pulse Resp BP Pulse Ox 98.0 F 77 20 117/64 97 02/27/17 08:46 02/27/17 13:19 02/27/17 08:46 02/27/17 13:19 02/27/17 08:46 Intake and Output: 02/27/17 02/27/17 06:59 18:59 Output Total 150 Balance -150 - Medications Medications: Current Medications Acetaminophen (Tylenol 325mg Tab) 650 mg PO Q6 PRN PRN Reason: Pain, Mild (1-3) Epoetin Adam (Procrit) 10,000 unit IV [facility] [place] Last Admin: 02/26/17 18:29 Dose: 10,000 unit Ferric Sodium Gluconate Complex (Ferrlecit) 125 mg IVPB [facility] [place] Stop: 03/07/17 09:01 Last Admin: 02/26/17 18:12 Dose: 125 mg Hydralazine HCl (Apresoline) 25 mg PO Q8 [facility] Last Admin: 02/27/17 13:20 Dose: Not Given Dextrose/Sodium Chloride (Dextrose 5%/0.45% Ns 1000 Ml) 1,000 mls @ 50 mls/hr IV .Q20H [facility] Last Admin: 02/26/17 21:47 Dose: 50 mls/hr Insulin Aspart (Novolog) 0 unit SC ACHS NIKIA PRN Reason: Protocol Last Admin: 02/27/17 12:33 Dose: Not Given Metoprolol Tartrate (Lopressor) 50 mg PO BID [facility] Last Admin: 02/27/17 10:24 Dose: Not Given Nitroglycerin (Nitro-Bid 2% Oint) 1 ea TOP Q6 [facility] Last Admin: 02/27/17 12:54 Dose: 1 ea Ondansetron HCl (Zofran Tab) 4 mg PO Q8 PRN PRN Reason: Nausea/Vomiting Oxycodone/Acetaminophen (Percocet 5/325 Mg Tab) 1 tab PO Q8 PRN PRN Reason: Pain, moderate (4-7) Stop: 03/01/17 22:01 Last Admin: 02/27/17 01:13 Dose: 1 tab Pantoprazole Sodium (Protonix Inj) 40 mg IVP DAILY [facility] Last Admin: 02/27/17 10:22 Dose: 40 mg Rosuvastatin Calcium (Crestor) 5 mg PO HS [facility] Last Admin: 02/26/17 21:44 Dose: 5 mg Sevelamer Carbonate (Renvela) 800 mg PO TIDCC [facility] Vitamin B Complex/Vit C/Folic Acid (Nephro-Benjamin) 1 tab PO 0800 [facility] - Labs Labs: 02/27/17 07:17 02/26/17 12:09 PT 11.6 SECONDS (9.7-12.2) 02/26/17 12:09 INR 1.0 02/26/17 12:09 APTT 29 SECONDS (21-34) 02/26/17 12:09
--- NOTE | 2017-02-27 15:49 | CP.PCM.PN ---
Subjective - Date & Time of Evaluation Date of Evaluation: 02/27/17 Time of Evaluation: 12:00 - Subjective Subjective: PT SEEN WITH DR. MARTINEZ DURING ROUNDS. PT EXAMINED BY DR. MARTINEZ. DENIES FURTHER HEMATEMESIS OR ABD PAIN. PT KEPT NPO; IVFS INFUSING WELL AT LOW RATE PT IS ESRD ON HD. SEEN BY DR. COHEN AND PENDING CARDIOLOGY CONSULT AND CARDIOLOGY CLEARANCE. POSS EGD THIS AFTERNOON PER DR. COHEN IF CLEARED EARLY. WILL F/U WITH DR. ANGEL AND DR. COHEN. NO FURTHER ORDERS AT THIS TIME. Objective - Vital Signs/Intake and Output Vital Signs (last 24 hours): Temp Pulse Resp BP Pulse Ox 98.0 F 77 20 117/64 97 02/27/17 08:46 02/27/17 13:19 02/27/17 08:46 02/27/17 13:19 02/27/17 08:46 Intake and Output: 02/27/17 02/27/17 06:59 18:59 Output Total 150 Balance -150 - Medications Medications: Current Medications Acetaminophen (Tylenol 325mg Tab) 650 mg PO Q6 PRN PRN Reason: Pain, Mild (1-3) Epoetin Adam (Procrit) 10,000 unit IV MWF [facility] Last Admin: 02/26/17 18:29 Dose: 10,000 unit Ferric Sodium Gluconate Complex (Ferrlecit) 125 mg IVPB MWF [facility] Stop: 03/07/17 09:01 Last Admin: 02/26/17 18:12 Dose: 125 mg Hydralazine HCl (Apresoline) 25 mg PO Q8 [facility] Last Admin: 02/27/17 13:20 Dose: Not Given Dextrose/Sodium Chloride (Dextrose 5%/0.45% Ns 1000 Ml) 1,000 mls @ 50 mls/hr IV .Q20H [facility] Last Admin: 02/26/17 21:47 Dose: 50 mls/hr Insulin Aspart (Novolog) 0 unit SC ACHS NIKIA PRN Reason: Protocol Last Admin: 02/27/17 12:33 Dose: Not Given Metoprolol Tartrate (Lopressor) 50 mg PO BID [facility] Last Admin: 02/27/17 10:24 Dose: Not Given Nitroglycerin (Nitro-Bid 2% Oint) 1 ea TOP Q6 [facility] Last Admin: 02/27/17 12:54 Dose: 1 ea Ondansetron HCl (Zofran Tab) 4 mg PO Q8 PRN PRN Reason: Nausea/Vomiting Oxycodone/Acetaminophen (Percocet 5/325 Mg Tab) 1 tab PO Q8 PRN PRN Reason: Pain, moderate (4-7) Stop: 03/01/17 22:01 Last Admin: 02/27/17 01:13 Dose: 1 tab Pantoprazole Sodium (Protonix Inj) 40 mg IVP DAILY [facility] Last Admin: 02/27/17 10:22 Dose: 40 mg Rosuvastatin Calcium (Crestor) 5 mg PO HS [facility] Last Admin: 02/26/17 21:44 Dose: 5 mg Sevelamer Carbonate (Renvela) 800 mg PO TIDCC [facility] Vitamin B Complex/Vit C/Folic Acid (Nephro-Benjamin) 1 tab PO 0800 [facility] - Labs Labs: 02/27/17 07:17 02/26/17 12:09 PT 11.6 SECONDS (9.7-12.2) 02/26/17 12:09 INR 1.0 02/26/17 12:09 APTT 29 SECONDS (21-34) 02/26/17 12:09
[2017-02-27] MEDS: Dextrose 5%/0.45% NS 1,000 ML IV SCH (16:53)
--- NOTE | 2017-02-27 18:22 | PN ---
DATE: LOCATION: [facility]. SUBJECTIVE: This 66 years old male seen and examined for GI consultation initially on 02/26/2017, reexamined again today, is to be scheduled for EGD today due to her recent episode of nausea and vomiting of some fresh and old blood with subsequent drop of his hemoglobin and hematocrit; however, due to lack of cardiology clearance as requested by the admitting MD, the patient is to be rescheduled for upper endoscopy at a.m. after to be seen by Dr. Hebert. PHYSICAL EXAMINATION: GENERAL: Patient appeared to be awake, alert, oriented. VITAL SIGNS: Afebrile with stable vital signs. LABORATORY DATA: Low hemoglobin today of 8.4, hematocrit 24.9, but no reported active bleeding, with normal troponin level. IMPRESSION: 1. Gastrointestinal bleeding with no significant physical changes in his physical examination. 2. Anemia. 3. Known history of diabetes mellitus, coronary artery disease, hypertension with hyperlipidemia as well as end-stage renal disease with status post cholecystectomy as well as status post coronary artery bypass graft. SUGGESTION: 1. Continue current management 2. Patient for upper endoscopy at a.m. Amada Sanders MD
--- NOTE | 2017-02-27 20:56 | CARD ---
APPROVED REPORT EKG Measurement Heart [id number] [place] 170P12 [id number] <Conclusion> Normal sinus rhythm Normal ECG
[2017-02-28] MEDS: Nitroglycerin 2% Ointment Foilpak UD TOP SCH ×4 (00:10→18:39)
--- NOTE | 2017-02-28 02:21 | CON ---
DATE: CARDIOLOGY CONSULTATION HISTORY OF PRESENT ILLNESS: Patient is a 66-year-old male who has end-stage renal disease, on hemodialysis for the past 4 years; history of hypertension; diabetes mellitus; coronary artery disease, status post coronary artery bypass surgery. The patient presented because of epigastric burning sensation as well as hematemesis. The patient also reported melena on the day of admission. The patient has a history of gastric ulcer. The most recent cardiac catheterization was performed in July of this year, which revealed a patent saphenous vein graft to the distal right coronary artery. The right coronary artery was totally occluded proximally and significant disease of the distal left main as well as the ostium of the LAD with borderline mid circumflex artery disease. Ejection fraction was maintained as 65%. SOCIAL HISTORY: The patient is a smoker. MEDICATIONS: Hydralazine 25 mg q. 8 hours, Crestor 5 mg once day, Ferrlecit 125 mg intravenously Sunday, Sunday and Sunday and Lopressor 50 mg twice a day, Procrit 10,000 units intravenously with hemodialysis, Renvela 800 mg t.i.d., Protonix 40 mg intravenously daily, Zofran 4 mg p.o. q. 8 hours p.r.n. for nausea and vomiting. REVIEW OF SYSTEMS: No fever or chills. No retrosternal chest pain. No dizziness or syncope. PHYSICAL EXAMINATION: GENERAL: The patient is an elderly male who does not appear to be in acute distress. VITAL SIGNS: Blood pressure 117/64, heart rate 77, temperature 98, respirations 20. HEENT: [place] conjunctivae. CHEST: Clear. HEART: S1 and S2 regular. ABDOMEN: Soft. EXTREMITIES: No edema. LABORATORY DATA: Hemoglobin and hematocrit 8.4 and 24.9, white count 5.1, platelet count 178,000. SMA-7: Sodium 142, potassium 5.3, chloride 103, CO2 22, glucose 112, BUN 139 and creatinine 8.5. Three sets of troponins are not in the elevated range. EKG revealed normal sinus rhythm. Echocardiography study performed in July of this year revealed normal ejection fraction, mild pulmonary hypertension. ASSESSMENT: 1. Coronary artery disease, status post coronary artery bypass surgery with patent saphenous vein graft to the right coronary artery, which is totally occluded proximally. 2. Significant ostial left anterior descending with borderline disease of the circumflex artery. 3. Upper gastrointestinal bleeding. 4. End-stage renal disease, on hemodialysis. 5. Anemia. RECOMMENDATIONS: Continue current hydralazine at 25 mg q. 8 hours, Crestor 5 mg once a day, Ferrlecit infusion, Lopressor 50 mg twice a day, Protonix 40 mg intravenously once a day. Antiplatelets and anticoagulations are absolutely contraindicated. The patient can undergo upper endoscopy from the cardiac point of view. Christian Hebert MD
--- NOTE | 2017-02-28 06:43 | PN ---
DATE: SUBJECTIVE: Today, the patient is alert and awake, complaining of generalized weakness, but denied any hematemesis and no chest pain. The patient has no chest pain. No dizziness. PHYSICAL EXAMINATION: VITAL SIGNS: The patient has a blood pressure of 126/65, pulse 78, respirations is 20, temperature is 98.1. HEENT: Conjunctiva is pale. NECK: Supple. LUNGS: Some fine rales at the bases. HEART: Regular rate and rhythm. Positive murmur. Positive extrasystole at times. ABDOMEN: Soft, mild epigastric tenderness and no palpable mass. EXTREMITIES: There is no edema and there is an AV fistula in the left arm. ASSESSMENT AND PLAN: The patient has a cardiology consult with Dr. Hebert for clearance for esophagogastroduodenoscopy and esophagogastroduodenoscopy was pending this morning pending the Cardiology clearance. The case was studied, reviewed and discussed with the Honey Tamayo, the nurse practitioner. Sd Garcia MD
[2017-02-28 07:16] LABS: EOS # 0.3 K/uL (0.0-0.7); EOS % 5.6 % (0.0-4.0); HEMATOCRIT 23.6 % (35.0-51.0); LYMPH # 1.1 K/uL (1.0-4.3); LYMPH % 23.4 % (20.0-40.0); MEAN CELL VOLUME 89.8 fL (80.0-94.0); MEAN CORPUSCULAR HEMOGLOBIN 30.3 pg (27.0-31.0); MEAN CORPUSCULAR HGB CONC 33.8 g/dL (33.0-37.0); MEAN PLATELET VOLUME 9.8 fL (7.2-11.7); MONO # 0.5 K/uL (0.0-0.8); MONO % 11.8 % (0.0-10.0); RED CELL DISTRIBUTION WIDTH 14.6 % (11.5-14.5); WHITE BLOOD COUNT 4.5 K/uL (4.8-10.8)
[2017-02-28] MEDS: (Novolog) Insulin Aspart, Recombinant 100 u/ml 10 ml vial SC SCH ×4 (07:44→22:11)
[2017-02-28 07:57] LABS: CALCIUM 8.4 mg/dl (8.6-10.4); PHOSPHOROUS 5.5 mg/dL (2.5-4.5); POTASSIUM 4.8 mmol/L (3.6-5.2)
[2017-02-28] MEDS: Multivitamin Vitamin B Complex (Nephro-Vite) Tab PO SCH (07:59)
[2017-02-28] MEDS: Oxycodone/Acetaminophen 5/325 mg Tab PO PRN ×2 (10:01→22:13)
[2017-02-28] MEDS ORDERED: Lactated Ringer's 500 ML IV ONE (12:40)
[2017-02-28] MEDS ORDERED: Lidocaine Hydrochloride 5 ML INJ ONE (12:47)
[2017-02-28] MEDS ORDERED: Propofol 10 mg/ml Inj (20 ML) ONE (12:47)
[2017-02-28] MEDS: Dextrose 5%/0.45% NS 1,000 ML IV SCH (14:00)
[2017-02-28] MEDS ORDERED: Peg-Electrolyte Oral Soln 4L (Golytely) PO ONE (14:30)
--- NOTE | 2017-02-28 15:19 | CP.PCM.PN ---
Subjective - Date & Time of Evaluation Date of Evaluation: 02/28/17 Time of Evaluation: 15:18 - Subjective Subjective: Follow up Nephrology Consultation: Assessment: stable Anemia of Acute blood loss, upper GI bleed, gastritis on EGD Diabetic chronic Kidney Disease (E11.22) Hypertensive Chronic Kidney Disease (I12.0) End stage renal disease (N18.6) dependence on hemodialysis (Z99.2) (MWF) via AVG Anemia (D64.9), Hyperphosphatemia (E83.39), Secondary Hyperparathyroidism (E21.1 ), HTN (I12.0) CAD s/p CABG, active smoker much high BUN likely contributed by upper GI bleed, superimposed on due to ESRD status Plan: Will plan for HD today as ordered, start with Nephrovite 1 tab/day once orally accepting. transfuse PRBC further as needed. last HB 12 on 02/19/17. will give epogen and IV iron with HD maintain hemodyanmics stable, BP controlled GI evaluation phos binders once orally accepting. pt on PPI Glycemic control GI to advise please when we can resume IV heparin during HD (pt has AVG and tendency to get it thrombosed) Further work up/management as per primary team Dose meds/antibiotics (if needed) for ESRD status. Avoid fleets enema/magnesium based laxatives. Thanks for allowing me to participate in care of your patient. Will follow patient with you. Please call if any Qs. Dr Solo Valentino Office: [phone] Chief Complaint; none now HPI: Pt is a 66 M with hx of ESRD on hemodialysis (MWF) via AVG, last dialysis sunday, chronic anemia, hyperphosphatemia, secondary hyperparathyroidism, Diabetes Mellitus, hypertension, CAD s/p CABG, active smoker, hx of partial gastrectomy presented with complaints of multple episode of vomitting with fresh blood and dark blood stool x 1 day. he also felt dizzy. feels sick. c/o upper abdomen pain ROS: today feels better. no further vomitting. Denies chest pain, palpitation, shortness of breath, leg swelling now Physical Examination: General Appearance: Comfortable, in no acute respiratory distress, co-operative . better appearing Vitals reviewed and noted as below Head; Atraumatic, normocephalic ENT: no ulcers no thrush. Tongue is midline. Oropharynx: no rash or ulcers. EYES: Pupils are equal, round and reactive to light accommodation. Eye muscles and extraocular movement intact. Sclera is anicteric. Neck; supple no lymphadenopathy, no thyromegaly or bruit Lungs: Normal respiratory rate/effort. Breath sounds bilateral equal and clear Heart: normal rate. s1s2 normal. No rub or gallop. Extremities: no edema. No varicose veins Neurological: Patient is alert, awake and oriented to person, place and time. No focal deficit. Strength bilateral appropriate and equal Skin: Warm and dry. Normal turgor. No rash. Palpitation: Normal elasticity for age Abdomen: Abdomen is soft. Bowel sounds +. There is no epigastric abdominal tenderness, no guarding/rigidity or organomegaly. prior surgical scars+ Psych: normal insight and normal affect/mood MSK: no joint tenderness or swelling. Digits and nails normal, no deformity : kidney or bladder not palpable Access: AVG Labs/imaging reviewed. Past medical history, past surgical history, family history, social history, allergy reviewed and noted as below Family Hx: no hx of CKD. Non contributory Objective - Vital Signs/Intake and Output Vital Signs (last 24 hours): Temp Pulse Resp BP Pulse Ox 97.1 F L 68 16 100/51 L 100 02/28/17 13:00 02/28/17 13:30 02/28/17 13:30 02/28/17 13:30 02/28/17 13:30 Intake and Output: 02/28/17 02/28/17 06:59 18:59 Intake Total 370 Output Total 200 Balance 170 - Medications Medications: Current Medications Acetaminophen (Tylenol 325mg Tab) 650 mg PO Q6 PRN PRN Reason: Pain, Mild (1-3) Bisacodyl (Dulcolax) 10 mg PO ONCE ONE Stop: 02/28/17 17:01 Epoetin Adam (Procrit) 10,000 unit IV [facility] Last Admin: 02/26/17 18:29 Dose: 10,000 unit Ferric Sodium Gluconate Complex (Ferrlecit) 125 mg IVPB [facility] [place] Stop: 03/07/17 09:01 Last Admin: 02/26/17 18:12 Dose: 125 mg Hydralazine HCl (Apresoline) 25 mg PO Q8 [facility] Last Admin: 12/13/17 06:54 Dose: Not Given Dextrose/Sodium Chloride (Dextrose 5%/0.45% Ns 1000 Ml) 1,000 mls @ 50 mls/hr IV .Q20H [facility] Last Admin: 02/27/17 16:53 Dose: 50 mls/hr Insulin Aspart (Novolog) 0 unit SC ACHS [facility] PRN Reason: Protocol Last Admin: 02/28/17 12:03 Dose: Not Given Metoclopramide HCl (Reglan) 5 mg IVP Q6 [facility] Metoprolol Tartrate (Lopressor) 50 mg PO BID [facility] Last Admin: 02/28/17 10:00 Dose: Not Given Nitroglycerin (Nitro-Bid 2% Oint) 1 ea TOP Q6 [facility] Last Admin: 02/28/17 12:46 Dose: Not Given Ondansetron HCl (Zofran Tab) 4 mg PO Q8 PRN PRN Reason: Nausea/Vomiting Oxycodone/Acetaminophen (Percocet 5/325 Mg Tab) 1 tab PO Q8 PRN PRN Reason: Pain, moderate (4-7) Stop: 03/01/17 22:01 Last Admin: 02/28/17 10:01 Dose: 1 tab Pantoprazole Sodium (Protonix Inj) 40 mg IVP DAILY [facility] Last Admin: 02/28/17 10:01 Dose: 40 mg Rosuvastatin Calcium (Crestor) 5 mg PO HS [facility] Last Admin: 02/27/17 21:40 Dose: 5 mg Sevelamer Carbonate (Renvela) 800 mg PO TIDCC [facility] Last Admin: 02/28/17 12:46 Dose: Not Given Vitamin B Complex/Vit C/Folic Acid (Nephro-Benjamin) 1 tab PO 0800 [facility] Last Admin: 02/28/17 07:59 Dose: Not Given - Labs Labs: 02/28/17 07:07 02/28/17 07:07 PT 11.6 SECONDS (9.7-12.2) 02/26/17 12:09 INR 1.0 02/26/17 12:09 APTT 29 SECONDS (21-34) 02/26/17 12:09
[2017-02-28] MEDS ORDERED: Bisacodyl 5mg EC Tab PO ONE ×2 (17:00→18:30)
[2017-02-28] MEDS: Ferric Sodium Gluconat Complex 62.5 mg/5 ml Vial IVPB SCH (17:28)
[2017-02-28] MEDS: Epoetin Alfa 10,000 unit/ml Dialysis IV SCH (17:28)
--- NOTE | 2017-02-28 21:00 | PN ---
SUBJECTIVE: The patient is currently undergoing a hemodialysis. He denies any chest pain. Upper endoscopy was performed and it was consistent with diffuse gastritis. Status post [place] I, hiatus hernia. LABORATORY DATA: Today's BUN and creatinine prior to hemodialysis are 81 and 7.1. Today's hemoglobin and hematocrit are 8 and 23.6. ASSESSMENT: 1. Coronary artery disease, status post coronary artery bypass surgery with patent saphenous vein graft to the right coronary artery and otherwise, nonobstructive coronary artery disease. 2. Status post upper GI bleeding. 3. End-stage renal disease, on hemodialysis. 4. Anemia. RECOMMENDATIONS: Continue current hydralazine 25 mg q. 8 hours, Crestor 5 mg once a day, Lopressor at 50 mg twice a day, Zofran 4 mg p.o. q. 8 hours. Patient can undergo colonoscopy from the cardiac point of view. In the meantime, continue telemetry monitoring. Christian Hebert MD
--- NOTE | 2017-02-28 23:46 | PN ---
DATE: 02/28/2017 SUBJECTIVE: Today, the patient is alert and awake. Denied any shortness of breath or chest pain. The patient has an endoscopy today. The patient is awake. PHYSICAL EXAMINATION: VITAL SIGNS: The patient has a blood pressure of 124/68, pulse 77, respirations 20, and temperature 97.2. NECK: Supple. No JVD. LUNGS: Clear. HEART: Regular rate and rhythm. Positive murmur. ABDOMEN: Soft, mild epigastric tenderness. EXTREMITIES: There is no edema. There is a left AV fistula. LABORATORY DATA: The patient's blood work has shown WBC of 4.5, hemoglobin 8, hematocrit 22.6, and platelets is 164. Chemistry; sodium 137, potassium 4.8, chloride 102, bicarb is 27, BUN 81, creatinine 7.1, glucose is 99, . ASSESSMENT: This patient had an endoscopy today that revealed gastritis, and also gastrojejunostomy. PLAN: The plan is that we are going to continue with the IV Protonix. The patient is due for a colonoscopy in the a.m. Sd Garcia MD
[2017-03-01] MEDS: Nitroglycerin 2% Ointment Foilpak UD TOP SCH ×3 (00:46→12:56)
--- NOTE | 2017-03-01 07:28 | PN ---
DATE: LOCATION: [facility]. SUBJECTIVE: This is a 66 years old male seen and examined in round without significant clinical changes and the patient is scheduled for upper endoscopy today as approved and agreed with the [employer] management consultant. Further recommendation to follow post upper endoscopy. Amada Sanders MD
--- NOTE | 2017-03-01 07:29 | CON ---
DATE OF CONSULTATION: 02/27/2017 LOCATION: [id number]. This is from Dr. Amada Sanders to Dr. Sd Garcia. I was called for a GI consultation by the admitting MD. The patient was initially seen on 02/26/2017, and he is seen again for official consultation on 02/27/2017. A short note was placed in the chart. Admission is fully , the entire chart is reviewed including but not limited to the most recent lab and radiology study results, current and the previous medication list, current and the previous medical events, allergy to medication list as well as all the available current and the previous medical records. Case was discussed at length with the admitting medical staff and with the staff on the floor. HISTORY OF PRESENT ILLNESS: This is a 66-year-old male with a known history of end-stage renal disease, on hemodialysis, who was admitted to the hospital through the emergency room with reported episodes of nausea, vomiting of some fresh blood as well as some old blood with melena before his admission. It is associated with midepigastric as well as left lower quadrant pain, severe at times, but no reported chest pain, significant shortness of breath, palpitation or no chills or fever. It has to be mentioned that during my initial consultation, patient has some chest discomfort, which is subsiding. PAST MEDICAL HISTORY: Including but not limited to, 1. Hypertension. 2. Diabetes mellitus. 3. Coronary artery disease with status post CABG. 4. Status post cholecystectomy. 5. Peptic ulcer disease with gastric ulcer. 6. Known history of hyperlipidemia. 7. End-stage renal disease, on hemodialysis. Patient also previously had upper endoscopy about 7 months ago, report is seen. Once he had blood transfusion before due to his anemia. FAMILY HISTORY: Unknown. SOCIAL HISTORY: Positive for cigarette smoking, but denies any alcohol intake or substance abuse. CURRENT MEDICATIONS: Medication lists were reviewed. ALLERGIES TO MEDICATION: LIST IS REVIEWED. LABS: Initial blood workup at the time of admission showed hemoglobin is 7.7 with hematocrit 23.0 as well as low hemoglobin and hematocrit at the time of my physical examination. Patient also had elevated BUN and creatinine with initial BUN of 133, increased creatinine with blood glucose level 112 as well as increased potassium initially at 5.3, his BUN and creatinine are still elevated, awaiting more hemodialysis. PHYSICAL EXAMINATION: GENERAL: A 66-year-old male appears to be awake, alert and oriented, complaining minimal midepigastric pain and left lower quadrant abdominal pain with reported melena and dyspepsia. VITAL SIGNS: Afebrile with respiratory rate 20 to 22 and blood pressure 138/82. HEENT: Showed pale dry oral mucous membrane. Nonicteric sclerae. LUNGS: Crepitation. Decreased air entry at bases. HEART: Positive S1 and S2. ABDOMEN: Soft. Bowel sounds are present. No mass or organomegaly. No rebound tenderness or guarding, but with midepigastric and left lower quadrant tenderness. RECTAL EXAMINATION: Positive tone, guaiac positive stool. EXTREMITIES: Without significant clubbing or cyanosis, but with lower extremity mild edematous changes. in place. NEUROLOGIC: No reported new neurological deficit, sensory or motor. IMPRESSION: 1. Gastrointestinal blood loss, upper versus lower. 2. Rule out occult gastrointestinal malignancy. 3. Anemia, most likely secondary to above. 4. In addition to these, patient has known chronic disease including end-stage renal disease, on hemodialysis. 5. Known history of but not limited to hypertension, coronary artery disease, hyperlipidemia as well as diabetes mellitus. 6. Known history of status post coronary artery bypass grafting. 7. Known history of status post cholecystectomy. SUGGESTIONS: 1. I agree with care plan. 2. Blood transfusion to keep hemoglobin around 10 gm percent. 3. Hemodialysis. 4. Cardiology evaluation before any aggressive GI workup. 5. Upper endoscopy due to the patient's episodes of hematemesis or diarrhea . 6. Patient also may need colonoscopy if upper endoscopy does not indicate any evidence of active bleeding. 7. Cancer markers including CEA. 8. Serum lipase and amylase level. 9. . 10. Further recommendation to follow. Amada Sanders MD
[2017-03-01 07:46] LABS: BASO % 0.6 % (0.0-2.0); EOS # 0.2 K/uL (0.0-0.7); EOS % 3.9 % (0.0-4.0); HEMATOCRIT 24.7 % (35.0-51.0); LYMPH # 0.7 K/uL (1.0-4.3); LYMPH % 16.5 % (20.0-40.0); MEAN CORPUSCULAR HEMOGLOBIN 29.9 pg (27.0-31.0); MEAN CORPUSCULAR HGB CONC 33.6 g/dL (33.0-37.0); MEAN PLATELET VOLUME 10.4 fL (7.2-11.7); MONO # 0.5 K/uL (0.0-0.8); MONO % 11.7 % (0.0-10.0); NRBC % 0.1 % (0.0-2.0); RED CELL DISTRIBUTION WIDTH 14.5 % (11.5-14.5); WHITE BLOOD COUNT 4.5 K/uL (4.8-10.8)
[2017-03-01] MEDS ORDERED: Propofol 10 mg/ml Inj (20 ML) ONE (07:48)
[2017-03-01] MEDS: Multivitamin Vitamin B Complex (Nephro-Vite) Tab PO SCH (07:51)
[2017-03-01] MEDS: (Novolog) Insulin Aspart, Recombinant 100 u/ml 10 ml vial SC SCH ×2 (07:51→12:04)
[2017-03-01] MEDS ORDERED: Sodium Chloride 0.9% 1,000 ML IV ONE ×2 (07:55)
[2017-03-01 08:06] LABS: CALCIUM 7.9 mg/dl (8.6-10.4); POTASSIUM 4.1 mmol/L (3.6-5.2)
[2017-03-01] MEDS: Oxycodone/Acetaminophen 5/325 mg Tab PO PRN (09:52)
--- NOTE | 2017-03-01 13:15 | CARD ---
APPROVED REPORT EKG Measurement Heart [id number] [place] 162P71 [id number] <Conclusion> Normal sinus rhythm Septal infarct, age undetermined Abnormal ECG
--- NOTE | 2017-03-01 13:16 | CARD ---
APPROVED REPORT EKG Measurement Heart [id number] [place] 166P70 [id number] <Conclusion> Normal sinus rhythm Nonspecific ST abnormality Abnormal ECG
--- NOTE | 2017-03-01 15:36 | CP.PCM.PN ---
Subjective - Date & Time of Evaluation Date of Evaluation: 03/01/17 Time of Evaluation: 11:35 - Subjective Subjective: Patient seen today , denies any chest pain, sob, dizziness, palpitations , abdominal pain, N/V/ and tolerating diet s/p colonoscopy - today - ( see full report for details ) hgb improved after PRBC transfusion - -8.3>8.4>7.7 on IV iron and procrit with HD Objective - Vital Signs/Intake and Output Vital Signs (last 24 hours): Temp Pulse Resp BP Pulse Ox 98 F 71 22 129/63 100 03/01/17 08:18 03/01/17 14:08 03/01/17 08:48 03/01/17 14:08 03/01/17 08:48 Intake and Output: 03/01/17 03/01/17 06:59 18:59 Intake Total 4000 Balance 4000 - Medications Medications: Current Medications Acetaminophen (Tylenol 325mg Tab) 650 mg PO Q6 PRN PRN Reason: Pain, Mild (1-3) Epoetin Adam (Procrit) 10,000 unit IV MWF [facility] Last Admin: 02/28/17 17:28 Dose: 10,000 unit Ferric Sodium Gluconate Complex (Ferrlecit) 125 mg IVPB MWF [facility] Stop: 03/07/17 09:01 Last Admin: 02/28/17 17:28 Dose: 125 mg Hydralazine HCl (Apresoline) 25 mg PO Q8 [facility] Last Admin: 03/01/17 14:08 Dose: 25 mg Dextrose/Sodium Chloride (Dextrose 5%/0.45% Ns 1000 Ml) 1,000 mls @ 50 mls/hr IV .Q20H [facility] Last Admin: 02/28/17 14:00 Dose: Not Given Insulin Aspart (Novolog) 0 unit SC ACHS [facility] PRN Reason: Protocol Last Admin: 03/01/17 12:04 Dose: Not Given Metoclopramide HCl (Reglan) 5 mg IVP Q6 [facility] Last Admin: 03/01/17 12:56 Dose: 5 mg Metoprolol Tartrate (Lopressor) 50 mg PO BID [facility] Last Admin: 03/01/17 09:53 Dose: 50 mg Nitroglycerin (Nitro-Bid 2% Oint) 1 ea TOP Q6 [facility] Last Admin: 03/01/17 12:56 Dose: 1 ea Ondansetron HCl (Zofran Tab) 4 mg PO Q8 PRN PRN Reason: Nausea/Vomiting Oxycodone/Acetaminophen (Percocet 5/325 Mg Tab) 1 tab PO Q8 PRN PRN Reason: Pain, moderate (4-7) Stop: 03/01/17 22:01 Last Admin: 03/01/17 09:52 Dose: 1 tab Pantoprazole Sodium (Protonix Inj) 40 mg IVP DAILY [facility] Last Admin: 03/01/17 09:53 Dose: 40 mg Rosuvastatin Calcium (Crestor) 5 mg PO HS [facility] Last Admin: 02/28/17 22:08 Dose: 5 mg Sevelamer Carbonate (Renvela) 800 mg PO TIDCC [facility] Last Admin: 03/01/17 07:52 Dose: Not Given Vitamin B Complex/Vit C/Folic Acid (Nephro-Benjamin) 1 tab PO 0800 [facility] Last Admin: 03/01/17 07:51 Dose: Not Given - Labs Labs: 03/01/17 07:12 03/01/17 07:12 PT 11.6 SECONDS (9.7-12.2) 02/26/17 12:09 INR 1.0 02/26/17 12:09 APTT 29 SECONDS (21-34) 02/26/17 12:09 Assessment and Plan - Assessment and Plan (Free Text) Assessment: A/P 66 yo male w/PMHx of ESRD on HD ( MWF), HTN, IDDM, gastric ulcer with PMHX of GI bleed, CAD s/p CABG, hyperlipidemia admitted with bloody vomiting and acute blood loss anemia s/p PRBC transfusion and hgb improved s/p EGD- gastritis ( see full report for details) s/p colonoscopy - ( see full report for details) d/W Dr. Urrutia, cleared fro discharge home today if pateint tolerating diet seen by Dr. Garcia , stable for discharge home today if tolerating diet patient tolerated diet with N/V and abdominal pain discharge plan discussed with patient who understands and agrees with plan pateint instructed to return to ED if symptoms returns or any other concerning symptoms
--- NOTE | 2017-03-01 15:46 | CP.PCM.PN ---
Subjective - Date & Time of Evaluation Date of Evaluation: 03/01/17 Time of Evaluation: 15:46 - Subjective Subjective: Follow up Nephrology Consultation: Assessment: stable Anemia of Acute blood loss, upper GI bleed, gastritis on EGD Diabetic chronic Kidney Disease (E11.22) Hypertensive Chronic Kidney Disease (I12.0) End stage renal disease (N18.6) dependence on hemodialysis (Z99.2) (MWF) via AVG Anemia (D64.9), Hyperphosphatemia (E83.39), Secondary Hyperparathyroidism (E21.1 ), HTN (I12.0) CAD s/p CABG, active smoker much high BUN likely contributed by upper GI bleed, superimposed on due to ESRD status Plan: Will plan for HD tomorrow as ordered, start with Nephrovite 1 tab/day transfuse PRBC further as needed. last HB 12 on 02/19/17. will give epogen and IV iron with HD maintain hemodyanmics stable, BP controlled GI evaluation phos binders once orally accepting. pt on PPI Glycemic control GI to advise please when we can resume IV heparin during HD (pt has AVG and tendency to get it thrombosed) Further work up/management as per primary team Dose meds/antibiotics (if needed) for ESRD status. Avoid fleets enema/magnesium based laxatives. Thanks for allowing me to participate in care of your patient. Will follow patient with you. Please call if any Qs. Dr Solo Valentino Office: [phone] Chief Complaint; none now HPI: Pt is a 66 M with hx of ESRD on hemodialysis (MWF) via AVG, last dialysis sunday, chronic anemia, hyperphosphatemia, secondary hyperparathyroidism, Diabetes Mellitus, hypertension, CAD s/p CABG, active smoker, hx of partial gastrectomy presented with complaints of multple episode of vomitting with fresh blood and dark blood stool x 1 day. he also felt dizzy. feels sick. c/o upper abdomen pain ROS: today feels better. no further vomitting. Denies chest pain, palpitation, shortness of breath, leg swelling now Physical Examination: General Appearance: Comfortable, in no acute respiratory distress, co-operative . better appearing Vitals reviewed and noted as below Head; Atraumatic, normocephalic ENT: no ulcers no thrush. Tongue is midline. Oropharynx: no rash or ulcers. EYES: Pupils are equal, round and reactive to light accommodation. Eye muscles and extraocular movement intact. Sclera is anicteric. Neck; supple no lymphadenopathy, no thyromegaly or bruit Lungs: Normal respiratory rate/effort. Breath sounds bilateral equal and clear Heart: normal rate. s1s2 normal. No rub or gallop. Extremities: no edema. No varicose veins Neurological: Patient is alert, awake and oriented to person, place and time. No focal deficit. Strength bilateral appropriate and equal Skin: Warm and dry. Normal turgor. No rash. Palpitation: Normal elasticity for age Abdomen: Abdomen is soft. Bowel sounds +. There is no epigastric abdominal tenderness, no guarding/rigidity or organomegaly. prior surgical scars+ Psych: normal insight and normal affect/mood MSK: no joint tenderness or swelling. Digits and nails normal, no deformity : kidney or bladder not palpable Access: AVG Labs/imaging reviewed. Past medical history, past surgical history, family history, social history, allergy reviewed and noted as below Family Hx: no hx of CKD. Non contributory Objective - Vital Signs/Intake and Output Vital Signs (last 24 hours): Temp Pulse Resp BP Pulse Ox 98 F 71 22 129/63 100 03/01/17 08:18 03/01/17 14:08 03/01/17 08:48 03/01/17 14:08 03/01/17 08:48 Intake and Output: 03/01/17 03/01/17 06:59 18:59 Intake Total 4000 Balance 4000 - Medications Medications: Current Medications Acetaminophen (Tylenol 325mg Tab) 650 mg PO Q6 PRN PRN Reason: Pain, Mild (1-3) Epoetin Adam (Procrit) 10,000 unit IV [facility] Last Admin: 02/28/17 17:28 Dose: 10,000 unit Ferric Sodium Gluconate Complex (Ferrlecit) 125 mg IVPB [facility] Stop: 03/07/17 09:01 Last Admin: 02/28/17 17:28 Dose: 125 mg Hydralazine HCl (Apresoline) 25 mg PO Q8 [facility] Last Admin: 03/01/17 14:08 Dose: 25 mg Dextrose/Sodium Chloride (Dextrose 5%/0.45% Ns 1000 Ml) 1,000 mls @ 50 mls/hr IV .Q20H [facility] Last Admin: 02/28/17 14:00 Dose: Not Given Insulin Aspart (Novolog) 0 unit SC ACHS NIKIA PRN Reason: Protocol Last Admin: 03/01/17 12:04 Dose: Not Given Metoclopramide HCl (Reglan) 5 mg IVP Q6 [facility] Last Admin: 03/01/17 12:56 Dose: 5 mg Metoprolol Tartrate (Lopressor) 50 mg PO BID [facility] Last Admin: 03/01/17 09:53 Dose: 50 mg Nitroglycerin (Nitro-Bid 2% Oint) 1 ea TOP Q6 [facility] Last Admin: 03/01/17 12:56 Dose: 1 ea Ondansetron HCl (Zofran Tab) 4 mg PO Q8 PRN PRN Reason: Nausea/Vomiting Oxycodone/Acetaminophen (Percocet 5/325 Mg Tab) 1 tab PO Q8 PRN PRN Reason: Pain, moderate (4-7) Stop: 03/01/17 22:01 Last Admin: 03/01/17 09:52 Dose: 1 tab Pantoprazole Sodium (Protonix Inj) 40 mg IVP DAILY [facility] Last Admin: 03/01/17 09:53 Dose: 40 mg Rosuvastatin Calcium (Crestor) 5 mg PO HS [facility] Last Admin: 02/28/17 22:08 Dose: 5 mg Sevelamer Carbonate (Renvela) 800 mg PO TIDCC [facility] Last Admin: 03/01/17 07:52 Dose: Not Given Vitamin B Complex/Vit C/Folic Acid (Nephro-Benjamin) 1 tab PO 0800 [facility] Last Admin: 03/01/17 07:51 Dose: Not Given - Labs Labs: 03/01/17 07:12 03/01/17 07:12 PT 11.6 SECONDS (9.7-12.2) 02/26/17 12:09 INR 1.0 02/26/17 12:09 APTT 29 SECONDS (21-34) 02/26/17 12:09
[2017-03-01 15:53] VITALS: BP 123/69; PULSE 81; RESP 20; TEMP 97.8; O2SAT 96
--- NOTE | 2017-03-01 18:29 | PN ---
DATE: SUBJECTIVE: The patient underwent colonoscopy. The findings are many small mouthed diverticula were found in the descending colon and the ascending colon, there was no evidence of diverticular bleeding. An area of moderately congested mucosa was found in the distal descending colon. Biopsies were taken. Estimated blood loss, none. Non-bleeding external and internal hemorrhoids. ASSESSMENT: 1. Status post gastrointestinal bleeding requiring one unit of packed RBC transfusion, the gastrointestinal bleed is a recurrent issue now. 2. Coronary artery disease, status post coronary artery bypass surgery with patent saphenous vein graft to the distal right coronary artery. 3. End-stage renal disease, on hemodialysis. 4. Anemia. RECOMMENDATIONS: Continue hydralazine 25 mg q. 8 hours; Crestor 5 mg once a day; Lopressor 50 mg twice a day; Procrit 10,000 units Sunday, Sunday, and Sunday; and the patient was advised not to take any anti-platelets including aspirin, Plavix until cleared by baseball coach and that will be only for daily baby aspirin. Christian Hebert MD
--- NOTE | 2017-03-01 23:32 | PN ---
DATE: 03/01/2017 SUBJECTIVE: Today patient is alert and awake. Denies any abdominal pain. No shortness of breath. No chest pain. Patient had a colonoscopy done today. PHYSICAL EXAMINATION: VITAL SIGNS: Patient has a blood pressure of 129/63, pule 71, respiration is 20, temperature is 97.8. NECK: Supple. No JVD. LUNGS: Clear. HEART: Regular rate and rhythm. Positive murmur. ABDOMEN: Soft. Positive bowel sounds. Mild tenderness in the epigastric area. No palpable mass. EXTREMITIES: There is no edema, but there is a left AV fistula noted. LABORATORY DATA: Blood work done today showed WBC 4.5, hemoglobin 8.3, hematocrit 24.7, and platelet is 168. Chemistry, sodium 138, potassium 4.1, chloride 98, bicarb is 30, BUN 39, creatinine 5.3, and glucose is 90. Patient today had colonoscopy done by Dr. Urrutia, and patient was found to have diverticulosis. PLAN: We are going to see the patient. If the diet is tolerated, patient may be discharged home as per suggestion of GI. The case was reviewed and discussed with the Gillian Diaz, the nurse practitioner. Sd Garcia MD
--- NOTE | 2017-03-04 09:11 | DS ---
DATE: HISTORY OF PRESENT ILLNESS: The patient is a 66-year-old male with history of end-stage renal disease, CABG, hypertension, and also the patient has a marginal ulcer and also the patient has diabetes. The patient came to the emergency room. The patient was complaining of hematemesis and melena. Also, the patient was found to have a low hemoglobin that was as low as 7.3. So, the patient was admitted. The complaint was epigastric pain. The patient also complained of some chest pain and generalized weakness. The patient has a consult with Dr. Hebert, mechanics supervisor and also has a consult with Dr. Urrutia, GI. The patient's blood work was done and that showed troponin was within normal limits. The patient was cleared by Dr. Hebert, the mechanics supervisor for endoscopy. The endoscopy was done. He was found to have dilatation, has gastritis, and also gastrojejunal anastomosis. Also the patient has a colonoscopy done that revealed gastric diverticulosis. Now, the blood pressure was stable and also after having a blood transfusion, the hemoglobin remained at 8.5 today. So the patient may be able to be discharged home on medication, but; however, since the patient has a history of CABG and also had a stent, so we are going to continue to resume this patient's Plavix. We are holding the aspirin for now. The patient will come to see me in the office within 1 week. Sd Garcia MD
== END 2017-03-01 16:51 | disposition home or self-care (01) | DRG 377 ==
LOC: C.ER 11:42 → C.9E 13:10 → C.5S 18:09
PROVIDERS: ADMIT Specialist; ATTEND Specialist
PROC: 30233N1 Transfusion of Nonautologous Red Blood Cells into Peripheral Vein, Percutaneous Approach (ICD-10-PCS; 2017-02-26)
PROC: 5A1D70Z Performance of Urinary Filtration, Intermittent, Less than 6 Hours Per Day (ICD-10-PCS; 2017-02-26)
PROC: 0DB68ZX Excision of Stomach, Via Natural or Artificial Opening Endoscopic, Diagnostic (ICD-10-PCS; 2017-02-28)
PROC: 0DBM8ZX Excision of Descending Colon, Via Natural or Artificial Opening Endoscopic, Diagnostic (ICD-10-PCS; principal; 2017-02-28 12:48)
DX: K29.01 Acute gastritis with bleeding (principal); N18.6 End stage renal disease; E11.22 Type 2 diabetes mellitus with diabetic chronic kidney disease; E11.59 Type 2 diabetes mellitus with other circulatory complications; E83.39 Other disorders of phosphorus metabolism; D62 Acute posthemorrhagic anemia; N25.81 Secondary hyperparathyroidism of renal origin; I12.0 Hypertensive chronic kidney disease with stage 5 chronic kidney disease or end stage renal disease; K57.30 Diverticulosis of large intestine without perforation or abscess without bleeding; K64.8 Other hemorrhoids; G89.29 Other chronic pain; E78.00 Pure hypercholesterolemia, unspecified; I25.10 Atherosclerotic heart disease of native coronary artery without angina pectoris; E78.5 Hyperlipidemia, unspecified; F17.210 Nicotine dependence, cigarettes, uncomplicated; I25.82 Chronic total occlusion of coronary artery; K64.4 Residual hemorrhoidal skin tags; K44.9 Diaphragmatic hernia without obstruction or gangrene; Z87.11 Personal history of peptic ulcer disease; Z95.1 Presence of aortocoronary bypass graft; Z99.2 Dependence on renal dialysis; Z90.3 Acquired absence of stomach [part of]; Z79.4 Long term (current) use of insulin

== ENCOUNTER 2017-08-20 08:40 | Inpatient (IN) | payer MEDICARE, MEDICAID ==
[2017-08-20 08:41] VITALS: BMI 30.9
[2017-08-20] MEDS ORDERED: Sodium Chloride 0.9% 1,000 ML IV ONE ×2 (09:08→13:03)
[2017-08-20] MEDS ORDERED: Aspirin 325 mg EC Tablets PO STA (09:09)
[2017-08-20] MEDS ORDERED: Aspirin 325 mg EC Tablets PO ONE (09:36)
[2017-08-20] MEDS ORDERED: Sodium Chloride 0.9% 1,000 ML ONE (09:36)
[2017-08-20 09:59] LABS: BASO % 0.2 % (0.0-2.0); EOS % 0.4 % (0.0-4.0); LYMPH # 0.2 K/uL (1.0-4.3); LYMPH % 1.8 % (20.0-40.0); MEAN CORPUSCULAR HEMOGLOBIN 30.9 pg (27.0-31.0); MEAN CORPUSCULAR HGB CONC 33.7 g/dL (33.0-37.0); MEAN PLATELET VOLUME 9.2 fL (7.2-11.7); MONO # 0.7 K/uL (0.0-0.8); MONO % 6.2 % (0.0-10.0); NEUT # 10.4 K/uL (1.8-7.0); NEUT % 91.4 % (50.0-75.0); PLATELET COUNT 177 K/uL (130-400); RBC 4.48 Mil/uL (4.40-5.90)
--- NOTE | 2017-08-20 09:59 | RAD ---
PROCEDURE: CHEST RADIOGRAPH, 1 VIEW HISTORY: SOB COMPARISON: None available. FINDINGS: LUNGS: The lungs are well inflated. There is mild pulmonary venous congestion. There is airspace disease in the right lower lobe. PLEURA: No pneumothorax or pleural fluid seen. CARDIOVASCULAR: The heart remains enlarged. Status post CABG. OSSEOUS STRUCTURES: No significant abnormalities. VISUALIZED UPPER ABDOMEN: Normal. OTHER FINDINGS: None. IMPRESSION: Cardiomegaly and pulmonary venous congestion. Airspace disease in the right lower lobe may represent atelectasis/ pneumonia. Follow-up is advised.
[2017-08-20 10:01] LABS: HEMOGLOBIN 13.8 g/dL (12.0-18.0); MEAN CELL VOLUME 91.7 fL (80.0-94.0); WHITE BLOOD COUNT 11.4 K/uL (4.8-10.8)
[2017-08-20 10:20] LABS: ALB/GLOB RATIO 1.2 (1.0-2.1); ALBUMIN 4.1 g/dL (3.5-5.0); CALCIUM 9.2 mg/dl (8.6-10.4)
[2017-08-20 10:39] LABS: ANISOCYTOSIS SLIGHT; LYMPHOCYTE 1 % (20-40); MONOCYTE 5 % (0-10); NEUTROPHIL 94 % (50-75); PLATELET ESTIMATE NORMAL (NORMAL); TOTAL CELLS COUNTED 100
[2017-08-20 10:50] LABS: TROPONIN I 0.032 ng/mL (0.00-0.120)
[2017-08-20 10:54] LABS: SQUAMOUS EPITHIAL 3 /hpf (0-5); URINE BILIRUBIN NEGATIVE (NEGATIVE); URINE BLOOD NEGATIVE (NEGATIVE); URINE CLARITY Clear (Clear); URINE COLOR Yellow (YELLOW); URINE GLUCOSE (UA) 2+ mg/dL (Normal); URINE LEUKOCYTE ESTERASE NEG Leu/uL (Negative); URINE PROTEIN 2+ mg/dL (NEGATIVE); URINE UROBILINOGEN NORMAL mg/dL (0.2-1.0)
[2017-08-20] MEDS ORDERED: Azithromycin 500 MG in Sodium Chloride 0.9% 250 ML IVPB STA (11:09)
[2017-08-20] MEDS ORDERED: Piperacillin/Tazobact 3.375 gm 100 ML IVPB STA (11:12)
--- NOTE | 2017-08-20 11:15 | C.PDOC ---
History Of Present Illness 67 y/o male, w/PMhx of CABG and ESRD, presents to the ER complaining of chest pain which has been present since last night. Patient states that he has associated cough. Patient is also complaining of fatigue and weakness. Of note, patient states that he is undergoing dialysis on Sunday, Wednesdays, Fridays and he is due for dialysis today. Time Seen by Provider: 08/20/17 08:50 Chief Complaint (Nursing): Chest Pain History Per: Patient History/Exam Limitations: no limitations Onset/Duration Of Symptoms: Days Current Symptoms Are (Timing): Still Present Severity: Moderate Past Medical History Reviewed: Historical Data, Nursing Documentation, Vital Signs Vital Signs: Last Vital Signs Temp 100.8 F H 08/20/17 08:45 Pulse 97 H 08/20/17 11:27 Resp 22 08/20/17 11:27 BP 139/91 H 08/20/17 11:27 Pulse Ox 98 08/20/17 12:19 - Medical History PMH: CAD, Diabetes, Gastrointestinal Ulcer, HTN, Hypercholesterolemia, Hyperlipidemia, End Stage Renal Disease, Chronic Kidney Disease Surgical History: CABG, Cholecystectomy - [facility] Procedures (02/26/17) EXCISION OF DESCENDING COLON, ENDO, DIAGN (02/26/17) EXCISION OF STOMACH, ENDO, DIAGN (02/26/17) FLUOROSCOPY OF LEFT HEART USING LOW OSMOLAR CONTRAST (07/29/16) FLUOROSCOPY OF MULT COR ART USING L OSM CONTRAST (07/29/16) FLUOROSCOPY OF SING COR A GRAFT USING L OSM CONTRAST (07/29/16) HEMODIALYSIS (01/02/13) MEASURE CARDIAC SAMPL & PRESSURE, BILATERAL, PERC (08/27/15) MEASURE OF CARDIAC SAMPL & PRESSURE, L HEART, PERC APPROACH (07/29/16) PACKED CELL TRANSFUSION (01/02/13) PERFORMANCE OF URINARY FILTRATION, MULTIPLE (08/27/15) PERFORMANCE OF URINARY FILTRATION, SINGLE (07/29/16) PLAIN RADIOGRAPHY OF MULT COR A GRAFT USING OTH CONTRAST (08/27/15) PLAIN RADIOGRAPHY OF MULT COR ART USING OTH CONTRAST (08/27/15) PLAIN RADIOGRAPHY OF RIGHT AND LEFT HEART USING OTH CONTRAST (08/27/15) TRANSFUSE NONAUT RED BLOOD CELLS IN PERIPH VEIN, PERC (02/26/17) VENOUS CATHETERIZATION FOR RENAL DIALYSIS (01/02/13) Family History: States: No Known Family Hx - Social History Hx Tobacco Use: Yes Hx Alcohol Use: No Hx Substance Use: No - Immunization History Hx Tetanus Toxoid Vaccination: (unk) Hx Influenza Vaccination: Yes Hx Pneumococcal Vaccination: Yes Review Of Systems Except As Marked, All Systems Reviewed And Found Negative. Constitutional: Positive for: Fever, Weakness. Negative for: Chills Cardiovascular: Positive for: Chest Pain Respiratory: Positive for: Cough Physical Exam - Physical Exam Appears: Non-toxic, No Acute Distress Skin: Normal Color, Warm, Dry Head: Atraumatic, Normacephalic Eye(s): bilateral: Normal Inspection Nose: Normal Oral Mucosa: Moist Neck: Supple Chest: Symmetrical Cardiovascular: Rhythm Irregular (tachycardiac) Respiratory: Decreased Breath Sounds, No Rales, No Rhonchi, No Wheezing Gastrointestinal/Abdominal: Normal Exam, Bowel Sounds ((+) bowel sounds), Soft, No Tenderness, No Guarding, No Rebound Extremity: Other (AV fistula to left arm) Pulses: Left Radial: Normal, Right Radial: Normal, Left Dorsalis Pedis: Normal, Right Dorsalis Pedis: Normal Neurological/Psych: Oriented x3, Normal Speech ED Course And Treatment - Laboratory Results Result Diagrams: 08/20/17 09:55 08/20/17 09:55 ECG: Interpreted By Me, Viewed By Me ECG Rhythm: Sinus Tachycardia Interpretation Of ECG: Sinus tachycardia with normal intervals, poor R wave progression, and Q wave in Leads II and AVF, big T waves Rate From EC O2 Sat by Pulse Oximetry: 98 (RA) Pulse Ox Interpretation: Normal - Other Rad CXR X-Ray: Viewed By Me, Read By Radiologist Interpretation: PROCEDURE: CHEST RADIOGRAPH, 1 VIEW. HISTORY: SOB. COMPARISON: None available. FINDINGS: LUNGS: The lungs are well inflated. There is mild pulmonary venous congestion. There is airspace disease in the right lower lobe. PLEURA: No pneumothorax or pleural fluid seen. CARDIOVASCULAR: The heart remains enlarged. Status post CABG. OSSEOUS STRUCTURES: No significant abnormalities. VISUALIZED UPPER ABDOMEN: Normal. OTHER FINDINGS: None. IMPRESSION: Cardiomegaly and pulmonary venous congestion. Airspace disease in the right lower lobe may represent atelectasis / pneumonia. Follow-up is advised. Critical Care Time - Critical Care Note Total Time (in mins): 60 Documented critical care: time excludes all time spent performing seperately billable procedures. Medical Decision Making Medical Decision Making: Assessment: Chest Pain, CHF, Pneumonia, ESRD Plan: --Labs --ECG Updates: Case discussed with patient's PMD, Dr. Garcia. Patient will be admitted to Telemetry under the service of . Dr. Garcia, manager pacu, and , beverage host, will be on consult. Disposition Discussed With Dr.: Sd Garcia Doctor Will See Patient In The: Hospital Counseled Patient/Family Regarding: Studies Performed, Diagnosis - Disposition Disposition: HOSPITALIZED Disposition Time: 11:18 Condition: FAIR - Clinical Impression Clinical Impression: Chest discomfort, Congestive heart failure, Pneumonia - Scribe Statement The provider has reviewed the documentation as recorded by the [facility] Melody Ball Provider Attestation: All medical record entries made by the [facility] were at my direction and personally dictated by me. I have reviewed the chart and agree that the record accurately reflects my personal performance of the history, physical exam, medical decision making, and the department course for this patient. I have also personally directed, reviewed, and agree with the discharge instructions and disposition.
[2017-08-20] MEDS ORDERED: Sod Polystyrene Sulf 15 gm/60 ml Susp PO ONE (11:23)
[2017-08-20] MEDS ORDERED: Vancomycin 1 gm/NS 200 ml 1 GM/200 ML BAG IVPB ONE (12:00)
--- NOTE | 2017-08-20 13:27 | CP.PCM.CON ---
History of Present Illness - History of Present Illness History of Present Illness: INFECTIOUS DISEASE CONSULT; HPI; 67 y/o male, w/PMhx of CABG, DIABETES MELLITUS and ESRD ON HEMODIALYSIS MWF, presents to the ER complaining of chest pain which has been present since last night. Patient states that he has associated cough. Patient is also complaining of fatigue and weakness. patient admits to fever AND CHILLS. Patient denies any hemoptysis or hematemesis but states he has productive cough. Patient seen during hemodialysis today. Patient denies any body aches,OR SORE THROAT. CXR SHOWED PULMONARY VENOUS CONGESTION, CARDIOMEGALY, AIR- SPACE DISEASE RIGHT LOWER LOBE,CONSISTENT WITH ATELECTASIS OR INFILTRATE. PATIENT ALSO HAD LEUKOCYTOSIS WITH A wbc COUNT OF 11.4 AND A TEMPERATURE 100.8 ON ADMISSION DENIES ANY RECENT HISTORY OF TRAVEL OR SICK CONTACT. INFECTIOUS DISEASE CONSULT REQUESTED BY PMD FOR PNEUMONIA/CHEST PAIN. PMH: CAD, Diabetes, Gastrointestinal Ulcer, HTN, Hypercholesterolemia, Hyperlipidemia, End Stage Renal Disease, Chronic Kidney Disease Surgical History: CABG, Cholecystectomy - [facility] Procedures (02/26/17) EXCISION OF DESCENDING COLON, ENDO, DIAGN (02/26/17) EXCISION OF STOMACH, ENDO, DIAGN (02/26/17) FLUOROSCOPY OF LEFT HEART USING LOW OSMOLAR CONTRAST (07/29/16) FLUOROSCOPY OF MULT COR ART USING L OSM CONTRAST (07/29/16) FLUOROSCOPY OF SING COR A GRAFT USING L OSM CONTRAST (07/29/16) HEMODIALYSIS (01/02/13) MEASURE CARDIAC SAMPL & PRESSURE, BILATERAL, PERC (08/27/15) MEASURE OF CARDIAC SAMPL & PRESSURE, L HEART, PERC APPROACH (07/29/16) PACKED CELL TRANSFUSION (01/02/13) PERFORMANCE OF URINARY FILTRATION, MULTIPLE (08/27/15) PERFORMANCE OF URINARY FILTRATION, SINGLE (07/29/16) PLAIN RADIOGRAPHY OF MULT COR A GRAFT USING OTH CONTRAST (08/27/15) PLAIN RADIOGRAPHY OF MULT COR ART USING OTH CONTRAST (08/27/15) PLAIN RADIOGRAPHY OF RIGHT AND LEFT HEART USING OTH CONTRAST (08/27/15) TRANSFUSE NONAUT RED BLOOD CELLS IN PERIPH VEIN, PERC (02/26/17) VENOUS CATHETERIZATION FOR RENAL DIALYSIS (01/02/13) Family History: States: No Known Family Hx - Social History Hx Tobacco Use: Yes Hx Alcohol Use: No Hx Substance Use: No - Immunization History Hx Tetanus Toxoid Vaccination: (unk) Hx Influenza Vaccination: Yes Hx Pneumococcal Vaccination: Yes Review of Systems - Constitutional Constitutional: Chills, Fever, Malaise, Weakness - EENT Eyes: absent: Blurred Vision, Itchy Eyes Nose/Mouth/Throat: absent: Nasal Congestion, Hoarsness, Sore Throat - Cardiovascular Cardiovascular: Chest Pain. absent: Leg Edema - Respiratory Respiratory: Cough, Chest Congestion, Change in Mucous Color, Pain with Coughing - Gastrointestinal Gastrointestinal: absent: Abdominal Pain, Constipation, Diarrhea, Nausea, Vomiting - Genitourinary Genitourinary: absent: Freq UTI - Musculoskeletal Musculoskeletal: As Per HPI - Neurological Neurological: Dizziness. absent: Headaches - Hematologic/Lymphatic Hematologic: As Per HPI. absent: Easy Bruising, Lymphadenopathy Past Patient History - Past Medical History & Family History Past Medical History?: Yes - Past Social History Smoking Status: Former Smoker - CARDIAC Hx Hypercholesterolemia: Yes Hx Hypertension: Yes - PULMONARY Hx Respiratory Disorders: No - NEUROLOGICAL Hx Neurological Disorder: No - HEENT Hx HEENT Problems: No - RENAL Hx Chronic Kidney Disease: Yes - ENDOCRINE/METABOLIC Hx Diabetes Mellitus Type 2: Yes - HEMATOLOGICAL/ONCOLOGICAL Hx Blood Disorders: No - INTEGUMENTARY Hx Dermatological Problems: No - MUSCULOSKELETAL/RHEUMATOLOGICAL Hx Falls: No - GASTROINTESTINAL Hx Gastrointestinal Disorders: Yes - GENITOURINARY/GYNECOLOGICAL Hx Genitourinary Disorders: No - PSYCHIATRIC Hx Substance Use: No - SURGICAL HISTORY Hx Cholecystectomy: Yes Hx Coronary Artery Bypass Graft: Yes - ANESTHESIA Hx Anesthesia: Yes Hx Anesthesia Reactions: No Meds Allergies/Adverse Reactions: Allergies Allergy/AdvReac Type Severity Reaction Status Date / Time No Known Allergies Allergy Verified 08/20/17 08:56 - Medications Medications: Current Medications Acetaminophen (Tylenol 325mg Tab) 650 mg PO Q6 PRN PRN Reason: Pain, Mild (1-3) Famotidine (Pepcid) 20 mg PO DAILY [facility] Ferrous Sulfate (Feosol) 325 mg PO DAILY [facility] Home Med (Clopidogrel) 75 mg PO DAILY [facility] Hydralazine HCl (Apresoline) 25 mg PO BID [facility] Vancomycin/Sodium Chloride (Vancomycin 1 Gm/Ns 200 Ml) 1 gm in 200 mls @ 133.333 mls/hr IVPB ONCE ONE PRN Reason: Protocol Stop: 08/20/17 13:29 Last Admin: 08/20/17 12:10 Dose: 133.333 mls/hr Piperacillin Sod/Tazobactam Sod (Zosyn 3.375 Gm Iv Premix) 3.375 gm in 50 mls @ 100 mls/hr IVPB ONCE ONE PRN Reason: Protocol Stop: 08/20/17 13:59 Last Admin: 08/20/17 12:06 Dose: 100 mls/hr Piperacillin Sod/Tazobactam Sod (Zosyn 2.25 Gm Iv Premix) 2.25 gm in 50 mls @ 100 mls/hr IVPB Q8 [facility] PRN Reason: Protocol Vancomycin/Sodium Chloride (Vancomycin 1 Gm/Ns 200 Ml) 1 gm in 200 mls @ 133 mls/hr IVPB MWF [facility] PRN Reason: Protocol Stop: 08/27/17 09:01 Sodium Chloride (Sodium Chloride 0.9%) 1,000 mls @ 60 mls/hr IV .[id number] ONE Stop: 08/21/17 01:47 Last Admin: 08/20/17 13:04 Dose: 60 mls/hr Metoprolol Tartrate (Lopressor) 50 mg PO BID [facility] Pantoprazole Sodium (Protonix Inj) 40 mg IVP DAILY [facility] Pregabalin (Lyrica) 25 mg PO DAILY [facility] Rosuvastatin Calcium (Crestor) 5 mg PO HS [facility] Sevelamer Carbonate (Renvela) 800 mg PO TIDCC [facility] Physical Exam - Constitutional Appears: No Acute Distress - Head Exam Head Exam: NORMAL INSPECTION - Eye Exam Eye Exam: EOMI, PERRL - ENT Exam ENT Exam: Normal Oropharynx - Neck Exam Neck exam: Positive for: Normal Inspection. Negative for: Meningismus - Respiratory Exam Respiratory Exam: Rales (BASILAR RALES RIGHT SIDE MORE THAN THE LEFT.), NORMAL BREATHING PATTERN - Cardiovascular Exam Cardiovascular Exam: REGULAR RHYTHM, +S1, +S2 - GI/Abdominal Exam GI & Abdominal Exam: Normal Bowel Sounds, Soft. absent: Guarding, Tenderness - Extremities Exam Extremities exam: Negative for: calf tenderness, pedal edema - Neurological Exam Neurological exam: Alert, CN II-XII Intact, Oriented x3, Reflexes Normal - Psychiatric Exam Psychiatric exam: Normal Mood - Skin Skin Exam: Normal Color, Warm Results - Vital Signs Recent Vital Signs: Last Vital Signs Temp 98.8 F 08/20/17 12:45 Pulse 92 H 08/20/17 12:45 Resp 16 08/20/17 12:45 BP 139/61 08/20/17 12:45 Pulse Ox 95 08/20/17 12:45 - Labs Result Diagrams: 08/20/17 09:55 08/20/17 09:55 Labs: Laboratory Results - last 24 hr 08/20/17 08/20/17 08/20/17 09:04 09:55 09:55 WBC 11.4 H D RBC 4.48 Hgb 13.8 D Hct 41.1 MCV 91.7 D MCH 30.9 MCHC 33.7 RDW 16.0 H Plt Count 177 MPV 9.2 Neut % (Auto) 91.4 H Lymph % (Auto) 1.8 L [place] % (Auto) 6.2 Eos % (Auto) 0.4 Baso % (Auto) 0.2 Neut # (Auto) 10.4 H Lymph # (Auto) 0.2 L [place] # (Auto) 0.7 Eos # (Auto) 0.0 Baso # (Auto) 0.0 Neutrophils % (Manual) 94 H Lymphocytes % (Manual) 1 L Monocytes % (Manual) 5 Platelet Estimate Normal Anisocytosis (manual) Slight Sodium 140 Potassium 5.7 H Chloride 95 L Carbon Dioxide 27 Anion Gap 24 H BUN 65 H Creatinine 9.9 H* D Est GFR ( Amer) 6 Est GFR (Non-Af Amer) 5 POC Glucose (mg/dL) 138 H Random Glucose 107 Calcium 9.2 Total Bilirubin 0.3 AST 62 H D ALT 33 Alkaline Phosphatase 178 H D Troponin I 0.0320 NT-Pro-B Natriuret Pep 5340 H Total Protein 7.4 Albumin 4.1 Globulin 3.3 Albumin/Globulin Ratio 1.2 Urine Color Urine Clarity Urine pH Ur Specific [place] Urine Protein Urine Glucose (UA) Urine Ketones Urine Blood Urine Nitrate Urine Bilirubin Urine Urobilinogen Ur Leukocyte Esterase Urine WBC (Auto) Urine RBC (Auto) Ur Squamous Epith Cells 08/20/17 10:46 WBC RBC Hgb Hct MCV MCH MCHC RDW Plt Count MPV Neut % (Auto) Lymph % (Auto) [place] % (Auto) Eos % (Auto) Baso % (Auto) Neut # (Auto) Lymph # (Auto) [place] # (Auto) Eos # (Auto) Baso # (Auto) Neutrophils % (Manual) Lymphocytes % (Manual) Monocytes % (Manual) Platelet Estimate Anisocytosis (manual) Sodium Potassium Chloride Carbon Dioxide Anion Gap BUN Creatinine Est GFR ( Amer) Est GFR (Non-Af Amer) POC Glucose (mg/dL) Random Glucose Calcium Total Bilirubin AST ALT Alkaline Phosphatase Troponin I NT-Pro-B Natriuret Pep Total Protein Albumin Globulin Albumin/Globulin Ratio Urine Color Yellow Urine Clarity Clear Urine pH 8.0 Ur Specific [place] 1.012 Urine Protein 2+ H Urine Glucose (UA) 2+ H Urine Ketones Negative Urine Blood Negative Urine Nitrate Negative Urine Bilirubin Negative Urine Urobilinogen Normal Ur Leukocyte Esterase Neg Urine WBC (Auto) 1 Urine RBC (Auto) 1 Ur Squamous Epith Cells 3 - Imaging and Cardiology Chest x-ray Status: Report reviewed by me (see reports) Assessment & Plan (1) Chest pain Assessment and Plan: workup for chest pain in progress. Cardiology on board. Status: Acute (2) Pneumonia Assessment and Plan: CHEST X-RAY CONSISTENT WITH RIGHT LOWER LOBE INFILTRATE. AGREE WITH iv ZOSYN 2.25 G iv EVERY 8 HOURLY. CONTINUE iv VANCOMYCIN 1 G POST-EACH HEMODIALYSIS MWF ON MTW X 5 DOSES. 08/20/17 PATIENT GOT 1 DOSE OF VANCOMYCIN LD DOSE TODAY. fOLLOW-UP VANCO TROUGH PRIOR TO THE FOURTH DOSE AND KEEP IT BETWEEN 10 AND 20. SPUTUM GRAM STAIN AND CULTURE. MRSA SCREEN. ESR. CRP. Status: Acute (3) Congestive heart failure Status: Acute (4) ESRD (end stage renal disease) on dialysis Assessment and Plan: ON HD MWF Status: Acute
[2017-08-20] MEDS ORDERED: Piperacill/Tazo 3.375gm in Dex 3.375 GM/50 ML BAG IVPB ONE (13:30)
--- NOTE | 2017-08-20 15:09 | CP.PCM.CON ---
History of Present Illness - History of Present Illness History of Present Illness: Nephrology Consultation Note: Assessment: critical Pneumonia, CHF, Hyperkalemia, AMS Diabetic chronic Kidney Disease (E11.22) Hypertensive Chronic Kidney Disease (I12.0) End stage renal disease (N18.6) dependence on hemodialysis (Z99.2) (MWF) via AVG Anemia (D64.9), Hyperphosphatemia (E83.39), Secondary Hyperparathyroidism (E21.1 ), HTN (I12.0) CAD s/p CABG, active smoker hx of peptic ulcer disease Plan: Will plan for HD today as ordered per MWF schedule, started with Nephrovite 1 tab/day last HB 13.8 hence no HARINDER with HD at present maintain hemodyanmics stable, BP controlled continue with phos binders Glycemic control Further work up/management as per primary team Dose meds/antibiotics for ESRD status. Avoid fleets enema/magnesium based laxatives. ID following Thanks for allowing me to participate in care of your patient. Will follow patient with you. Please call if any Qs. Dr Solo Valentino Office: [phone] Chief Complaint; chest pain Reason for consult: ESRD management HPI: Pt is a 67 M with hx of ESRD on hemodialysis (MWF) via [facility], last dialysis sunday @[facility] with Dr Dawn, chronic anemia, hyperphosphatemia, secondary hyperparathyroidism, Diabetes Mellitus, hypertension, CAD s/p CABG, active smoker, hx of partial gastrectomy and peptic ulcer bleed presented with complaints of chest pain, cough and tiredness. he was lethargic when seen and not providing much hx ROS: Denies chest pain, palpitation, shortness of breath, leg swelling now Physical Examination: General Appearance: Comfortable, in no acute respiratory distress, co-operative . ill appearing Vitals reviewed and noted as below Head; Atraumatic, normocephalic ENT: no ulcers no thrush. Tongue is midline. Oropharynx: no rash or ulcers. EYES: Pupils are equal, round and reactive to light accommodation. Eye muscles and extraocular movement intact. Sclera is anicteric. Neck; supple no lymphadenopathy, no thyromegaly or bruit Lungs: Normal respiratory rate/effort. Breath sounds bilateral equal and clear except basal crackles Heart: normal rate. s1s2 normal. No rub or gallop. Extremities: no edema. No varicose veins Neurological: Patient is lethargic but arousable Skin: Warm and dry. Normal turgor. No rash. Palpitation: Normal elasticity for age Abdomen: Abdomen is soft. Bowel sounds +. There is no epigastric abdominal tenderness, no guarding/rigidity or organomegaly. prior surgical scars+ Psych: unable MSK: no joint tenderness or swelling. Digits and nails normal, no deformity : kidney or bladder not palpable Access: AVG Labs/imaging reviewed. Past medical history, past surgical history, family history, social history, allergy reviewed and noted as below Family Hx: no hx of CKD. Non contributory Past Patient History - Past Medical History & Family History Past Medical History?: Yes - Past Social History Smoking Status: Former Smoker - CARDIAC Hx Cardiac Disorders: Yes Hx Congestive Heart Failure: Yes Hx Hypercholesterolemia: Yes Hx Hypertension: Yes - PULMONARY Hx Respiratory Disorders: No - NEUROLOGICAL Hx Neurological Disorder: No - HEENT Hx HEENT Problems: No - RENAL Hx Chronic Kidney Disease: Yes Hx Dialysis: Yes Type of Dialysis Access: AV fistula Date of Last Dialysis Treatment: 08/17/17 - ENDOCRINE/METABOLIC Hx Endocrine Disorders: Yes Hx Diabetes Mellitus Type 2: Yes - HEMATOLOGICAL/ONCOLOGICAL Hx Blood Disorders: No - INTEGUMENTARY Hx Dermatological Problems: No - MUSCULOSKELETAL/RHEUMATOLOGICAL Hx Falls: No - GASTROINTESTINAL Hx Gastrointestinal Disorders: No - GENITOURINARY/GYNECOLOGICAL Hx Genitourinary Disorders: No - PSYCHIATRIC Hx Psychophysiologic Disorder: No Hx Substance Use: No - SURGICAL HISTORY Hx Surgeries: Yes Hx Cholecystectomy: Yes Hx Coronary Artery Bypass Graft: Yes - ANESTHESIA Hx Anesthesia: Yes Hx Anesthesia Reactions: No Hx Malignant Hyperthermia: No Has any member of the family had a problem w/ anesthesia?: No Meds Allergies/Adverse Reactions: Allergies Allergy/AdvReac Type Severity Reaction Status Date / Time No Known Allergies Allergy Verified 08/20/17 08:56 - Medications Medications: Current Medications Acetaminophen (Tylenol 325mg Tab) 650 mg PO Q6 PRN PRN Reason: Pain, Mild (1-3) Clopidogrel Bisulfate (Plavix) 75 mg PO DAILY [facility] Famotidine (Pepcid) 20 mg PO DAILY [facility] Last Admin: 08/20/17 14:29 Dose: 20 mg Ferrous Sulfate (Feosol) 325 mg PO DAILY [facility] Heparin Sodium (Porcine) (Heparin) 2,000 units IVP MWF [facility] Hydralazine HCl (Apresoline) 25 mg PO BID [facility] Piperacillin Sod/Tazobactam Sod (Zosyn 2.25 Gm Iv Premix) 2.25 gm in 50 mls @ 100 mls/hr IVPB Q8H [facility] PRN Reason: Protocol Vancomycin/Sodium Chloride (Vancomycin 1 Gm/Ns 200 Ml) 1 gm in 200 mls @ 133 mls/hr IVPB MWF [facility] PRN Reason: Protocol Stop: 08/27/17 09:01 Sodium Chloride (Sodium Chloride 0.9%) 1,000 mls @ 60 mls/hr IV .[id number] ONE Stop: 08/21/17 01:47 Last Admin: 08/20/17 13:04 Dose: 60 mls/hr Metoprolol Tartrate (Lopressor) 50 mg PO BID [facility] Pregabalin (Lyrica) 25 mg PO DAILY [facility] Rosuvastatin Calcium (Crestor) 5 mg PO HS [facility] Sevelamer Carbonate (Renvela) 800 mg PO TIDCC [facility] Vitamin B Complex/Vit C/Folic Acid (Nephro-Benjamin) 1 tab PO 0800 [facility] Results - Vital Signs Recent Vital Signs: Last Vital Signs Temp 98.7 F 08/20/17 13:35 Pulse 90 08/20/17 13:35 Resp 20 08/20/17 13:35 BP 122/70 08/20/17 13:35 Pulse Ox 95 08/20/17 13:35 - Labs Result Diagrams: 08/20/17 09:55 08/20/17 09:55 Labs: Laboratory Results - last 24 hr 08/20/17 08/20/17 08/20/17 09:04 09:55 09:55 WBC 11.4 H D RBC 4.48 Hgb 13.8 D Hct 41.1 MCV 91.7 D MCH 30.9 MCHC 33.7 RDW 16.0 H Plt Count 177 MPV 9.2 Neut % (Auto) 91.4 H Lymph % (Auto) 1.8 L [place] % (Auto) 6.2 Eos % (Auto) 0.4 Baso % (Auto) 0.2 Neut # (Auto) 10.4 H Lymph # (Auto) 0.2 L [place] # (Auto) 0.7 Eos # (Auto) 0.0 Baso # (Auto) 0.0 Neutrophils % (Manual) 94 H Lymphocytes % (Manual) 1 L Monocytes % (Manual) 5 Platelet Estimate Normal Anisocytosis (manual) Slight Sodium 140 Potassium 5.7 H Chloride 95 L Carbon Dioxide 27 Anion Gap 24 H BUN 65 H Creatinine 9.9 H* D Est GFR ( Amer) 6 Est GFR (Non-Af Amer) 5 POC Glucose (mg/dL) 138 H Random Glucose 107 Calcium 9.2 Total Bilirubin 0.3 AST 62 H D ALT 33 Alkaline Phosphatase 178 H D Troponin I 0.0320 NT-Pro-B Natriuret Pep 5340 H Total Protein 7.4 Albumin 4.1 Globulin 3.3 Albumin/Globulin Ratio 1.2 Urine Color Urine Clarity Urine pH Ur Specific [place] Urine Protein Urine Glucose (UA) Urine Ketones Urine Blood Urine Nitrate Urine Bilirubin Urine Urobilinogen Ur Leukocyte Esterase Urine WBC (Auto) Urine RBC (Auto) Ur Squamous Epith Cells 08/20/17 10:46 WBC RBC Hgb Hct MCV MCH MCHC RDW Plt Count MPV Neut % (Auto) Lymph % (Auto) [place] % (Auto) Eos % (Auto) Baso % (Auto) Neut # (Auto) Lymph # (Auto) [place] # (Auto) Eos # (Auto) Baso # (Auto) Neutrophils % (Manual) Lymphocytes % (Manual) Monocytes % (Manual) Platelet Estimate Anisocytosis (manual) Sodium Potassium Chloride Carbon Dioxide Anion Gap BUN Creatinine Est GFR ( Amer) Est GFR (Non-Af Amer) POC Glucose (mg/dL) Random Glucose Calcium Total Bilirubin AST ALT Alkaline Phosphatase Troponin I NT-Pro-B Natriuret Pep Total Protein Albumin Globulin Albumin/Globulin Ratio Urine Color Yellow Urine Clarity Clear Urine pH 8.0 Ur Specific [place] 1.012 Urine Protein 2+ H Urine Glucose (UA) 2+ H Urine Ketones Negative Urine Blood Negative Urine Nitrate Negative Urine Bilirubin Negative Urine Urobilinogen Normal Ur Leukocyte Esterase Neg Urine WBC (Auto) 1 Urine RBC (Auto) 1 Ur Squamous Epith Cells 3
[2017-08-20 18:44] LABS: CK-MB 1.11 ng/mL (0.0-3.38); TROPONIN I 0.034 ng/mL (0.00-0.120)
[2017-08-20] MEDS: Piperacill/Tazo 2.25gm in Dex 2.25 GM/50 ML BAG IVPB SCH (20:17)
--- NOTE | 2017-08-20 23:42 | CP.PCM.CON ---
History of Present Illness - History of Present Illness History of Present Illness: Patient seen and evaluated admitted for chest pain Scheduled for stress test in am Past Patient History - Past Medical History & Family History Past Medical History?: Yes - Past Social History Smoking Status: Former Smoker - CARDIAC Hx Hypercholesterolemia: Yes Hx Hypertension: Yes - PULMONARY Hx Respiratory Disorders: No - NEUROLOGICAL Hx Neurological Disorder: No - HEENT Hx HEENT Problems: No - RENAL Hx Chronic Kidney Disease: Yes - ENDOCRINE/METABOLIC Hx Diabetes Mellitus Type 2: Yes - HEMATOLOGICAL/ONCOLOGICAL Hx Blood Disorders: No - INTEGUMENTARY Hx Dermatological Problems: No - MUSCULOSKELETAL/RHEUMATOLOGICAL Hx Falls: No - GASTROINTESTINAL Hx Gastrointestinal Disorders: Yes - GENITOURINARY/GYNECOLOGICAL Hx Genitourinary Disorders: No - PSYCHIATRIC Hx Substance Use: No - SURGICAL HISTORY Hx Cholecystectomy: Yes Hx Coronary Artery Bypass Graft: Yes - ANESTHESIA Hx Anesthesia: Yes Hx Anesthesia Reactions: No Meds Allergies/Adverse Reactions: Allergies Allergy/AdvReac Type Severity Reaction Status Date / Time No Known Allergies Allergy Verified 08/20/17 08:56 - Medications Medications: Current Medications Acetaminophen (Tylenol 325mg Tab) 650 mg PO Q6 PRN PRN Reason: Pain, Mild (1-3) Clopidogrel Bisulfate (Plavix) 75 mg PO DAILY [facility] Famotidine (Pepcid) 20 mg PO DAILY [facility] Last Admin: 08/20/17 14:29 Dose: 20 mg Ferrous Sulfate (Feosol) 325 mg PO DAILY [facility] Heparin Sodium (Porcine) (Heparin) 2,000 units IVP MWF [facility] Last Admin: 08/20/17 16:30 Dose: 2,000 units Hydralazine HCl (Apresoline) 25 mg PO BID [facility] Last Admin: 08/20/17 19:56 Dose: 25 mg Piperacillin Sod/Tazobactam Sod (Zosyn 2.25 Gm Iv Premix) 2.25 gm in 50 mls @ 100 mls/hr IVPB Q8H [facility] PRN Reason: Protocol Last Admin: 08/20/17 20:17 Dose: 100 mls/hr Vancomycin/Sodium Chloride (Vancomycin 1 Gm/Ns 200 Ml) 1 gm in 200 mls @ 133 mls/hr IVPB MWF [facility] PRN Reason: Protocol Stop: 08/27/17 09:01 Metoprolol Tartrate (Lopressor) 50 mg PO BID [facility] Last Admin: 06/04/18 19:56 Dose: 50 mg Pregabalin (Lyrica) 25 mg PO DAILY [facility] Rosuvastatin Calcium (Crestor) 5 mg PO HS [facility] Last Admin: 08/20/17 21:45 Dose: 5 mg Sevelamer Carbonate (Renvela) 800 mg PO TIDCC [facility] Last Admin: 08/20/17 19:56 Dose: 800 mg Vitamin B Complex/Vit C/Folic Acid (Nephro-Benjamin) 1 tab PO 0800 [facility] Results - Vital Signs Recent Vital Signs: Last Vital Signs Temp 98.7 F 08/20/17 23:35 Pulse 65 08/20/17 23:35 Resp 18 08/20/17 23:35 BP 123/64 08/20/17 23:35 Pulse Ox 97 08/20/17 23:35 - Labs Result Diagrams: 08/20/17 09:55 08/20/17 09:55 Labs: Laboratory Results - last 24 hr 08/20/17 08/20/17 08/20/17 09:04 09:55 09:55 WBC 11.4 H D RBC 4.48 Hgb 13.8 D Hct 41.1 MCV 91.7 D MCH 30.9 MCHC 33.7 RDW 16.0 H Plt Count 177 MPV 9.2 Neut % (Auto) 91.4 H Lymph % (Auto) 1.8 L [place] % (Auto) 6.2 Eos % (Auto) 0.4 Baso % (Auto) 0.2 Neut # (Auto) 10.4 H Lymph # (Auto) 0.2 L [place] # (Auto) 0.7 Eos # (Auto) 0.0 Baso # (Auto) 0.0 Neutrophils % (Manual) 94 H Lymphocytes % (Manual) 1 L Monocytes % (Manual) 5 Platelet Estimate Normal Anisocytosis (manual) Slight Sodium 140 Potassium 5.7 H Chloride 95 L Carbon Dioxide 27 Anion Gap 24 H BUN 65 H Creatinine 9.9 H* D Est GFR ( Amer) 6 Est GFR (Non-Af Amer) 5 POC Glucose (mg/dL) 138 H Random Glucose 107 Calcium 9.2 Total Bilirubin 0.3 AST 62 H D ALT 33 Alkaline Phosphatase 178 H D Total Creatine Kinase CK-MB (Mass) Troponin I 0.0320 NT-Pro-B Natriuret Pep 5340 H Total Protein 7.4 Albumin 4.1 Globulin 3.3 Albumin/Globulin Ratio 1.2 Urine Color Urine Clarity Urine pH Ur Specific [place] Urine Protein Urine Glucose (UA) Urine Ketones Urine Blood Urine Nitrate Urine Bilirubin Urine Urobilinogen Ur Leukocyte Esterase Urine WBC (Auto) Urine RBC (Auto) Ur Squamous Epith Cells 08/20/17 08/20/17 08/20/17 10:46 18:07 19:14 WBC RBC Hgb Hct MCV MCH MCHC RDW Plt Count MPV Neut % (Auto) Lymph % (Auto) [place] % (Auto) Eos % (Auto) Baso % (Auto) Neut # (Auto) Lymph # (Auto) [place] # (Auto) Eos # (Auto) Baso # (Auto) Neutrophils % (Manual) Lymphocytes % (Manual) Monocytes % (Manual) Platelet Estimate Anisocytosis (manual) Sodium Potassium Chloride Carbon Dioxide Anion Gap BUN Creatinine Est GFR ( Amer) Est GFR (Non-Af Amer) POC Glucose (mg/dL) 98 Random Glucose Calcium Total Bilirubin AST ALT Alkaline Phosphatase Total Creatine Kinase 57 CK-MB (Mass) 1.11 Troponin I 0.0340 NT-Pro-B Natriuret Pep Total Protein Albumin Globulin Albumin/Globulin Ratio Urine Color Yellow Urine Clarity Clear Urine pH 8.0 Ur Specific [place] 1.012 Urine Protein 2+ H Urine Glucose (UA) 2+ H Urine Ketones Negative Urine Blood Negative Urine Nitrate Negative Urine Bilirubin Negative Urine Urobilinogen Normal Ur Leukocyte Esterase Neg Urine WBC (Auto) 1 Urine RBC (Auto) 1 Ur Squamous Epith Cells 3 08/20/17 21:37 WBC RBC Hgb Hct MCV MCH MCHC RDW Plt Count MPV Neut % (Auto) Lymph % (Auto) [place] % (Auto) Eos % (Auto) Baso % (Auto) Neut # (Auto) Lymph # (Auto) [place] # (Auto) Eos # (Auto) Baso # (Auto) Neutrophils % (Manual) Lymphocytes % (Manual) Monocytes % (Manual) Platelet Estimate Anisocytosis (manual) Sodium Potassium Chloride Carbon Dioxide Anion Gap BUN Creatinine Est GFR ( Amer) Est GFR (Non-Af Amer) POC Glucose (mg/dL) 274 H Random Glucose Calcium Total Bilirubin AST ALT Alkaline Phosphatase Total Creatine Kinase CK-MB (Mass) Troponin I NT-Pro-B Natriuret Pep Total Protein Albumin Globulin Albumin/Globulin Ratio Urine Color Urine Clarity Urine pH Ur Specific [place] Urine Protein Urine Glucose (UA) Urine Ketones Urine Blood Urine Nitrate Urine Bilirubin Urine Urobilinogen Ur Leukocyte Esterase Urine WBC (Auto) Urine RBC (Auto) Ur Squamous Epith Cells
[2017-08-21 02:51] LABS: CALCIUM 9.3 mg/dl (8.6-10.4)
[2017-08-21 03:01] LABS: CK-MB 0.93 ng/mL (0.0-3.38); TROPONIN I 0.029 ng/mL (0.00-0.120)
[2017-08-21] MEDS: Piperacill/Tazo 2.25gm in Dex 2.25 GM/50 ML BAG IVPB SCH ×3 (04:38→20:14)
[2017-08-21 06:40] LABS: HEMOGLOBIN 13.7 g/dL (12.0-18.0); MEAN CELL VOLUME 91.7 fL (80.0-94.0); MEAN CORPUSCULAR HEMOGLOBIN 31.2 pg (27.0-31.0); MEAN CORPUSCULAR HGB CONC 34.1 g/dL (33.0-37.0); MEAN PLATELET VOLUME 9.7 fL (7.2-11.7); RBC 4.38 Mil/uL (4.40-5.90); RED CELL DISTRIBUTION WIDTH 15.8 % (11.5-14.5); WHITE BLOOD COUNT 12.2 K/uL (4.8-10.8)
[2017-08-21] MEDS: Multivitamin Vitamin B Complex (Nephro-Vite) Tab PO SCH (08:00)
--- NOTE | 2017-08-21 11:26 | CP.PCM.PN ---
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 Avoid fleets enema/magnesium based laxatives. ID and cardiology following Thanks for allowing me to participate in care of your patient. Will follow patient with you. Please call if any Qs. Dr Solo Valentino Office: [phone] Chief Complaint; none now Reason for consult: ESRD management HPI: Pt is a 67 M with hx of ESRD on hemodialysis (MWF) via AVG, last dialysis sunday @[facility] with Dr Dawn, chronic anemia, hyperphosphatemia, secondary hyperparathyroidism, Diabetes Mellitus, hypertension, CAD s/p CABG, active smoker, hx of partial gastrectomy and peptic ulcer bleed presented with complaints of chest pain, cough and tiredness. he was lethargic when seen and not providing much hx ROS: Denies chest pain, palpitation, shortness of breath, leg swelling now. feels better Physical Examination: General Appearance: Comfortable, in no acute respiratory distress, co-operative . better appearing Vitals reviewed and noted as below Head; Atraumatic, normocephalic ENT: no ulcers no thrush. Tongue is midline. Oropharynx: no rash or ulcers. EYES: Pupils are equal, round and reactive to light accommodation. Eye muscles and extraocular movement intact. Sclera is anicteric. Neck; supple no lymphadenopathy, no thyromegaly or bruit Lungs: Normal respiratory rate/effort. Breath sounds bilateral equal and clear Heart: normal rate. s1s2 normal. No rub or gallop. has CABG scar Extremities: no edema. No varicose veins Neurological: Patient is awake alert follows commands, no focal deficit Skin: Warm and dry. Normal turgor. No rash. Palpitation: Normal elasticity for age Abdomen: Abdomen is soft. Bowel sounds +. There is no epigastric abdominal tenderness, no guarding/rigidity or organomegaly. prior surgical scars+ Psych: limited insight. normal affect/mood MSK: no joint tenderness or swelling. Digits and nails normal, no deformity : kidney or bladder not palpable Access: AVG Labs/imaging reviewed. Past medical history, past surgical history, family history, social history, allergy reviewed and noted as below Family Hx: no hx of CKD. Non contributory Objective - Vital Signs/Intake and Output Vital Signs (last 24 hours): Temp Pulse Resp BP Pulse Ox 97.5 F L 78 20 148/77 96 08/21/17 10:20 08/21/17 10:20 08/21/17 10:20 08/21/17 10:20 08/21/17 10:20 Intake and Output: 08/21/17 08/21/17 06:59 18:59 Intake Total 190 Balance 190 - Medications Medications: Current Medications Acetaminophen (Tylenol 325mg Tab) 650 mg PO Q6 PRN PRN Reason: Pain, Mild (1-3) Clopidogrel Bisulfate (Plavix) 75 mg PO DAILY [facility] Last Admin: 08/21/17 10:44 Dose: 75 mg Famotidine (Pepcid) 20 mg PO DAILY [facility] Last Admin: 08/21/17 10:44 Dose: 20 mg Ferrous Sulfate (Feosol) 325 mg PO DAILY [facility] Last Admin: 08/21/17 10:44 Dose: 325 mg Heparin Sodium (Porcine) (Heparin) 2,000 units IVP MWF [facility] Last Admin: 08/20/17 16:30 Dose: 2,000 units Hydralazine HCl (Apresoline) 25 mg PO BID [facility] Last Admin: 08/21/17 10:44 Dose: 25 mg Piperacillin Sod/Tazobactam Sod (Zosyn 2.25 Gm Iv Premix) 2.25 gm in 50 mls @ 100 mls/hr IVPB Q8H [facility] PRN Reason: Protocol Last Admin: 08/21/17 04:38 Dose: 100 mls/hr Vancomycin/Sodium Chloride (Vancomycin 1 Gm/Ns 200 Ml) 1 gm in 200 mls @ 133 mls/hr IVPB MWF [facility] PRN Reason: Protocol Stop: 08/27/17 09:01 Metoprolol Tartrate (Lopressor) 50 mg PO BID [facility] Last Admin: 08/21/17 10:44 Dose: 50 mg Pregabalin (Lyrica) 25 mg PO DAILY [facility] Last Admin: 08/21/17 10:44 Dose: 25 mg Rosuvastatin Calcium (Crestor) 5 mg PO HS [facility] Last Admin: 08/20/17 21:45 Dose: 5 mg Sevelamer Carbonate (Renvela) 800 mg PO TIDCC [facility] Last Admin: 08/21/17 08:00 Dose: Not Given Vitamin B Complex/Vit C/Folic Acid (Nephro-Benjamin) 1 tab PO 0800 [facility] Last Admin: 08/21/17 08:00 Dose: Not Given - Labs Labs: 08/21/17 06:24 08/21/17 02:24
--- NOTE | 2017-08-21 13:40 | CARD ---
APPROVED REPORT EKG Measurement Heart [id number] <Conclusion> Sinus tachycardia Possible Left atrial enlargement Inferior infarct, age undetermined Cannot rule out Anterior infarct, age undetermined Abnormal ECG
[2017-08-21] MEDS ORDERED: Azithromycin 500 MG in Sodium Chloride 0.9% 250 ML IVPB SCH (14:30)
--- NOTE | 2017-08-21 14:31 | CP.PCM.PN ---
Subjective - Date & Time of Evaluation Date of Evaluation: 08/21/17 Time of Evaluation: 14:31 - Subjective Subjective: CHIEF COMPLAINTS TODAY : afebrile, c/o less cough/and SOB. NO ACUTE EVENTS OVERNIGHT. PT ON HD MWF ROS. HEENT : N. Resp : +VE COUGH , NO wheezing , ?+VE pleuritic CP ,or hemoptysis Cardio : No anginal CP, PND, orthopnea, palpitation GI : No abd.pain, n/v ,diarrhea or GI bleeding . TEACHERS' ASSISTANT : No headache, vertigo, focal deficit. Musculoskel : No joint swelling , Derm : No rash Psych : Normal affect. Ext : No swelling ,calf pain PE. Pt. is alert awake in no distress. V.S As noted in the chart Head ,ear nose,throat and eyes : Normal. Neck : Supple with normal carotids. Lungs: RT BASILAR RHONCHI Heart : S1 & S2 normal with S4. No murmur. Abd : Soft non tender with normal bowel sounds. Neuro : Moves all ext. with no localized deficit. Ext : No edema with intact pulses.Non tender calves Derm : No rashes or decubitus ulcer. LABS/RADIOLOGY: REVIEWED WBC INCREASING SPUTUM ?NOT COLLECTED YET ASSESSMENT CHEST PAIN RLL PNEUMONIA ?CAP VS ATYPICAL. CHF ESRD ON HD MWF PLAN : CHEST X-RAY CONSISTENT WITH RIGHT LOWER LOBE INFILTRATE. AGREE WITH iv ZOSYN 2.25 G iv EVERY 8 HOURLY. CONTINUE iv VANCOMYCIN 1 G POST-EACH HEMODIALYSIS MWF ON MTW X 5 DOSES. 08/20/17 fOLLOW-UP VANCO TROUGH PRIOR TO THE FOURTH DOSE AND KEEP IT BETWEEN 10 AND 20. ADD IV ZITHROMAX 500MG IV Q 24HRLY. 08/21/17 CHECK ATYPICAL TITRES INDUCE SPUTUM VIA DUONEB TREATMENTS. Objective - Vital Signs/Intake and Output Vital Signs (last 24 hours): Temp Pulse Resp BP Pulse Ox 97.5 F L 78 20 148/77 96 08/21/17 10:20 08/21/17 13:59 08/21/17 10:20 08/21/17 10:20 08/21/17 13:59 Intake and Output: 08/21/17 08/21/17 06:59 18:59 Intake Total 190 Balance 190 - Medications Medications: Current Medications Acetaminophen (Tylenol 325mg Tab) 650 mg PO Q6 PRN PRN Reason: Pain, Mild (1-3) Clopidogrel Bisulfate (Plavix) 75 mg PO DAILY [facility] Last Admin: 08/21/17 10:44 Dose: 75 mg Famotidine (Pepcid) 20 mg PO DAILY [facility] Last Admin: 08/21/17 10:44 Dose: 20 mg Ferrous Sulfate (Feosol) 325 mg PO DAILY [facility] Last Admin: 08/21/17 10:44 Dose: 325 mg Heparin Sodium (Porcine) (Heparin) 2,000 units IVP [facility] Last Admin: 08/20/17 16:30 Dose: 2,000 units Hydralazine HCl (Apresoline) 25 mg PO BID [facility] Last Admin: 08/21/17 10:44 Dose: 25 mg Piperacillin Sod/Tazobactam Sod (Zosyn 2.25 Gm Iv Premix) 2.25 gm in 50 mls @ 100 mls/hr IVPB Q8H [facility] PRN Reason: Protocol Last Admin: 08/21/17 12:40 Dose: 100 mls/hr Vancomycin/Sodium Chloride (Vancomycin 1 Gm/Ns 200 Ml) 1 gm in 200 mls @ 133 mls/hr IVPB [facility] PRN Reason: Protocol Stop: 08/27/17 09:01 Azithromycin 500 mg/ Sodium (Chloride) 250 mls @ 250 mls/hr IVPB DAILY [facility] PRN Reason: Protocol Insulin Aspart (Novolog) 0 unit SC [facility] PRN Reason: Protocol Metoprolol Tartrate (Lopressor) 50 mg PO BID [facility] Last Admin: 08/21/17 10:44 Dose: 50 mg Pregabalin (Lyrica) 25 mg PO DAILY [facility] Last Admin: 08/21/17 10:44 Dose: 25 mg Rosuvastatin Calcium (Crestor) 5 mg PO HS [facility] Last Admin: 08/20/17 21:45 Dose: 5 mg Sevelamer Carbonate (Renvela) 800 mg PO TIDCC [facility] Last Admin: 08/21/17 12:40 Dose: 800 mg Vitamin B Complex/Vit C/Folic Acid (Nephro-Benjamin) 1 tab PO 0800 [facility] Last Admin: 08/21/17 08:00 Dose: Not Given - Labs Labs: 08/21/17 06:24 08/21/17 02:24 Assessment and Plan (1) Chest pain Status: Acute (2) Pneumonia Status: Acute (3) Congestive heart failure Status: Acute (4) ESRD (end stage renal disease) on dialysis Status: Acute
[2017-08-21] MEDS: (Novolog) Insulin Aspart, Recombinant 100 u/ml 10 ml vial SC SCH ×2 (17:13→21:19)
--- NOTE | 2017-08-21 22:45 | CP.PCM.PN ---
Subjective - Date & Time of Evaluation Date of Evaluation: 08/21/17 Time of Evaluation: 16:00 - Subjective Subjective: Abnormal stress test Normal EF Cardiac Cath to be done by Dr. Ramirez Objective - Vital Signs/Intake and Output Vital Signs (last 24 hours): Temp Pulse Resp BP Pulse Ox 98.6 F 67 20 148/64 95 08/21/17 22:34 08/21/17 22:34 08/21/17 22:34 08/21/17 22:34 08/21/17 22:34 Intake and Output: 08/21/17 08/22/17 18:59 06:59 Intake Total 300 Balance 300 - Medications Medications: Current Medications Acetaminophen (Tylenol 325mg Tab) 650 mg PO Q6 PRN PRN Reason: Pain, Mild (1-3) Acetylcysteine (Acetylcysteine 20%) 4 ml INH RQ6 [facility] Albuterol/Ipratropium (Duoneb 3 Mg/0.5 Mg (3 Ml) Ud) 3 ml INH RQ6 [facility] Clopidogrel Bisulfate (Plavix) 75 mg PO DAILY [facility] Last Admin: 08/21/17 10:44 Dose: 75 mg Famotidine (Pepcid) 20 mg PO DAILY [facility] Last Admin: 08/21/17 10:44 Dose: 20 mg Ferrous Sulfate (Feosol) 325 mg PO DAILY [facility] Last Admin: 08/21/17 10:44 Dose: 325 mg Heparin Sodium (Porcine) (Heparin) 2,000 units IVP MWF [facility] Last Admin: 08/20/17 16:30 Dose: 2,000 units Hydralazine HCl (Apresoline) 25 mg PO BID [facility] Last Admin: 08/21/17 17:13 Dose: 25 mg Piperacillin Sod/Tazobactam Sod (Zosyn 2.25 Gm Iv Premix) 2.25 gm in 50 mls @ 100 mls/hr IVPB Q8H [facility] PRN Reason: Protocol Last Admin: 08/21/17 20:14 Dose: 100 mls/hr Vancomycin/Sodium Chloride (Vancomycin 1 Gm/Ns 200 Ml) 1 gm in 200 mls @ 133 mls/hr IVPB MWF [facility] PRN Reason: Protocol Stop: 08/27/17 09:01 Azithromycin 500 mg/ Sodium (Chloride) 250 mls @ 250 mls/hr IVPB DAILY [facility] PRN Reason: Protocol Last Admin: 08/21/17 15:00 Dose: 250 mls/hr Insulin Aspart (Novolog) 0 unit SC [facility] PRN Reason: Protocol Last Admin: 08/21/17 21:19 Dose: Not Given Metoprolol Tartrate (Lopressor) 50 mg PO BID [facility] Last Admin: 08/21/17 17:13 Dose: 50 mg Pregabalin (Lyrica) 25 mg PO DAILY [facility] Last Admin: 08/21/17 10:44 Dose: 25 mg Rosuvastatin Calcium (Crestor) 5 mg PO HS [facility] Last Admin: 08/21/17 21:02 Dose: 5 mg Sevelamer Carbonate (Renvela) 800 mg PO TIDCC [facility] Last Admin: 08/21/17 17:13 Dose: 800 mg Vitamin B Complex/Vit C/Folic Acid (Nephro-Benjamin) 1 tab PO 0800 [facility] Last Admin: 08/21/17 08:00 Dose: Not Given - Labs Labs: 08/21/17 06:24 08/21/17 02:24
--- NOTE | 2017-08-22 00:24 | PN ---
DATE: 08/21/2017 SUBJECTIVE: Today, the patient is alert and awake. Denied any chest pain through the week, and there is some epigastric discomfort and . No palpitation. PHYSICAL EXAMINATION: VITAL SIGNS: Blood pressure is 122/65, earlier the blood pressure was 148/77, pulse is 68, respirations 20, and temperature 98.1. NECK: Supple. Positive JVD. LUNGS: There are some rales bilaterally, more on the left side. HEART: Regular rate and rhythm. Positive murmur. ABDOMEN: Soft. Mild epigastric tenderness and positive bowel sound. EXTREMITIES: There is no edema noted. LABORATORY DATA: The lab showed that WBC is 12.2 today going up, hemoglobin 13.7, hematocrit 40.1, and platelet is 170. Chemistry showed that the sodium is 142, potassium 4.3, chloride 97, bicarb is 30, BUN is 38, creatinine is 6.1, and glucose is 114. The troponin is 0.029 and C-reactive protein is 80.5. ASSESSMENT AND PLAN: We are going to continue with antibiotic therapy, and as per Dr. Yi, the patient will be on azithromycin and the plan is that patient will have a stress test today, but the result is somewhat pending, so we are going to continue the current medications. The case was discussed with Francesco, the nurse practitioner. Sd Garcia MD
[2017-08-22] MEDS: Piperacill/Tazo 2.25gm in Dex 2.25 GM/50 ML BAG IVPB SCH ×3 (04:50→20:50)
--- NOTE | 2017-08-22 05:38 | CARD ---
APPROVED REPORT Protocol: PHARMACOLOGICAL STRESS Test Type: LEXISCAN Test Indications: CHEST PAIN Medications: LIST SCAN Medical History: CHESTPAIN,PNEUMONIA,ESRD,CHF Target HR: 154 bpm Resting ECG: normal Resting Heart Rate: 78 bpm Resting Blood Pressure: 128/58mmHg submaximum (85%): 131 bpm TEST SUMMARY [id number]/58.0. INFUSIONDOSE 100:300.00.01.076/.0. [id number]/60.0. PROCEDURE Pharmacologic stress testing was performed using 0.4mg per 5ml of regadenoson given intravenously over 7-10 seconds. Reversal agent aminophyline 100 mg, given intravenously for Chest Pain. POST EXERCISE Reason for Termination: Protocol Completed Target HR: No Max HR: 76 bpm 61% of Maximum Predicted HR: 154 bpm Exercise duration: 00:30 min:sec, 0 Stage Exercise capacity: 1.0METs Max Blood Pressure: 128/58mmHg Blood Pressure response to exercise: normal resting BP - appropriate response Heart Rate response to exercise: appropriate Chest Pain: No, none Angina index: 0 Arrhythmia: No, none ST Change: No, none Deviation: 0 mm INTERPRETATION Stress EKG Conclusion: NEGATIVE LEXISCAN STRESS TEST NORMAL BP RESPONSE NUCLEAR STUDIES TO BE READ SEPARATELY EXAM: Myocardial Perfusion STRESS/REST Imaging Protocol The imaging protocol used to acquire images was Stress Tc-99m/rest Tc-99m 1 day Stress Spect myocardial perfusion imaging was performed in supine position 54 minutes following the injection of 12.5 mCi of Tc-99 Myoview. Patient was injected after an infusion time of 33minutes and seconds. Gated Rest Spect was performed 45 minutes after intravenous 32.4 mci Tc-99 Myoview injection. The images were gated to evaluate regional wall motion and calculate ventricular ejection fraction.Images were reconstructed using backfilter projection method in short horizontal and verticle long axis. Spect slices were generated. RESTING DATA QEH792.82wzSK9.70L/min ESV57.00mlMyocardial Jgiy200.00g Av. Heart Rate64.00bpm EF56.00% STRESS DATA DAC728.21irMF2.40L/min ESV58.00mlMyocardial Fpcq634.00g EF56.00% Regional WT score at stress:2.00 Regional WM score at stress:0.00 Summed WT score at stress:23.00 Av. Heart Rate74.00bpmSummed WM score at stress:11.00 LV Perf. Quant 17 Seg. SSS2.00 17 Seg. SRS1.00 17 Seg. SDS2.00 Stress Defect Extent (% LAD)0.00Rest Defect Extent (% LAD)0.00Rev. Defect Extent (% LAD)0.00 Stress Defect Extent (% LCX)1.30Rest Defect Extent (% LCX)0.00Rev. Defect Extent (% LCX)0.00 Stress Defect Extent (% RCA)10.00Rest Defect Extent (% RCA)3.30Rev. Defect Extent (% RCA)2.20 Stress Defect Extent (% CHEY)6.50Rest Defect Extent (% CHEY)3.30Rev. Defect Extent (% CHEY)1.70 IMPRESSION Abnormal Myocardial Perfusion exercise stress study Left Ventricle LV Size/Shape: The left ventricle is normal size. LV Function:Left ventricle systolic function is normal. The Ejection Fraction is 55-60%. Regional Wall Motion:There is normal left ventricular wall motion. Metabolism/Perfusion Defects: There is scan evidence of exercise-induced reversible ischemia noted in the infero-apical region. Conclusion 1. There is scan evidence of exercise-induced reversible ischemia noted in the infero-apical region. 2. Left ventricle systolic function is normal. 3. The Ejection Fraction is 55-60%.
[2017-08-22] MEDS: Albuterol-Ipratrop 3 mg / 0.5 (3 ml) UD INH SCH ×4 (06:15→19:58)
[2017-08-22] MEDS: Acetylcysteine 20% Inhal Soln (4ml) INH SCH ×4 (06:16→19:58)
--- NOTE | 2017-08-22 07:07 | HP ---
HISTORY OF PRESENT ILLNESS: This is a 67-year-old male with history of hypertension, diabetes, end-stage renal disease, and peptic ulcer disease. The patient came to the emergency room complaining of chest pain. He denies syncope or shortness of breath ____ cough. The patient did have dialysis on Sunday and is due for dialysis today and so the patient was evaluated in the emergency room and the patient was admitted to telemetry. ALLERGIES: NO KNOWN ALLERGY. PAST MEDICAL HISTORY: History of hypertension, diabetes, end-stage renal disease, COPD, and peptic ulcer disease. PAST SURGICAL HISTORY: The patient has CABG x2, the last one did last year and also the patient has and gastrojejunal anastomosis. SOCIAL HISTORY: The patient has children, living alone. Denies alcohol abuse. REVIEW OF SYSTEMS: RESPIRATORY SYSTEM: Productive cough. CARDIOVASCULAR: The patient is complaining of chest pain, and now, the patient is chest pain free. GI: Complaining of epigastric pain and left quadrant pain which is chronic. : Anuria. NEUROLOGICAL: The patient is feeling weak and dizzy. PHYSICAL EXAMINATION: GENERAL: The patient is alert, awake, and oriented x3, little weak. VITAL SIGNS: Blood pressure is now 118/68, pulse 80, respirations 18, temperature is 98.7. NECK: Supple. Presence of JVD. LUNGS: He does have some rales bilaterally. HEART: Regular rhythm. ABDOMEN: Soft. There is tenderness in epigastric area and positive bowel sound. EXTREMITIES: There is a fistula under left arm and patent and . LABORATORY DATA: The patient has some test done. The chest x-ray showed some air space disease in the right lower lobe. Lab shows WBC 11.4, hemoglobin 13.8, hematocrit 41.1, and platelet is 177. Chemistry showed sodium 140, potassium 5.7, chloride 95, bicarb 27, BUN 65, creatinine 9.9, and glucose 138. ProBNP is 5340, Globulin 3.3, AST 62, ALT 33, alkaline phosphatase 178. The urine is positive for urine protein and for glucose. So the patient is admitted with chest pain, unstable angina, CHF, end stage renal disease, pneumonia, diabetes, and chronic abdominal pain, as the patient has a consult with Dr. Cordova, estimating manager and also Dr. Solo Valentino, Chemic Mangler and Dr. Mary Alice Yi MD, who is ID. The case was discussed and reviewed with Honey Tamayo, nurse practitioner. Sd Garcia MD
[2017-08-22 07:10] LABS: HEMOGLOBIN 13.5 g/dL (12.0-18.0); MEAN CELL VOLUME 91.7 fL (80.0-94.0); MEAN CORPUSCULAR HGB CONC 33.7 g/dL (33.0-37.0); RBC 4.35 Mil/uL (4.40-5.90); WHITE BLOOD COUNT 7.4 K/uL (4.8-10.8)
[2017-08-22] MEDS: (Novolog) Insulin Aspart, Recombinant 100 u/ml 10 ml vial SC SCH ×4 (07:30→21:02)
[2017-08-22 08:16] LABS: BLOOD UREA NITROGEN 66 mg/dL (9-20); CALCIUM 9.4 mg/dl (8.6-10.4); GFR AFRICAN-AMERICAN 7; GFR NON-AFRICAN AMERICAN 6
[2017-08-22] MEDS ORDERED: Vancomycin 1 gm/NS 200 ml 1 GM/200 ML BAG IVPB SCH ×2 (09:00→16:00)
[2017-08-22] MEDS: Multivitamin Vitamin B Complex (Nephro-Vite) Tab PO SCH (09:07)
[2017-08-22 10:01] LABS: INR 1.1; PROTHROMBIN TIME 11.5 SECONDS (9.7-12.2)
[2017-08-22 11:05] LABS: HEPATITIS B SURFACE AG Negative (NEGATIVE)
[2017-08-22] MEDS: Azithromycin 500 MG in Sodium Chloride 0.9% 250 ML IVPB SCH (14:44)
--- NOTE | 2017-08-22 16:06 | CP.PCM.PN ---
Subjective - Date & Time of Evaluation Date of Evaluation: 08/22/17 Time of Evaluation: 16:06 - Subjective Subjective: Nephrology Consultation Note: Assessment: stable Pneumonia, CHF, Hyperkalemia, AMS Diabetic chronic Kidney Disease (E11.22) Hypertensive Chronic Kidney Disease (I12.0) End stage renal disease (N18.6) dependence on hemodialysis (Z99.2) (MWF) via AVG Anemia (D64.9), Hyperphosphatemia (E83.39), Secondary Hyperparathyroidism (E21.1 ), HTN (I12.0) CAD s/p CABG, active smoker hx of peptic ulcer disease Plan: Will plan for HD today as ordered per MWF schedule, started with Nephrovite 1 tab/day last HB 13.5 hence no HARINDER with HD at present maintain hemodyanmics stable, BP controlled continue with phos binders Glycemic control Further work up/management as per primary team Dose meds/antibiotics for ESRD status. Avoid fleets enema/magnesium based laxatives. ID and cardiology following Thanks for allowing me to participate in care of your patient. Will follow patient with you. Please call if any Qs. Dr Solo Valentino Office: [phone] Chief Complaint; none now Reason for consult: ESRD management HPI: Pt is a 67 M with hx of ESRD on hemodialysis (MWF) via AVG, last dialysis sunday @[facility] with Dr Dawn, chronic anemia, hyperphosphatemia, secondary hyperparathyroidism, Diabetes Mellitus, hypertension, CAD s/p CABG, active smoker, hx of partial gastrectomy and peptic ulcer bleed presented with complaints of chest pain, cough and tiredness. he was lethargic when seen and not providing much hx ROS: Denies chest pain, palpitation, shortness of breath, leg swelling now. feels better Physical Examination: General Appearance: Comfortable, in no acute respiratory distress, co-operative . well appearing Vitals reviewed and noted as below Head; Atraumatic, normocephalic ENT: no ulcers no thrush. Tongue is midline. Oropharynx: no rash or ulcers. EYES: Pupils are equal, round and reactive to light accommodation. Eye muscles and extraocular movement intact. Sclera is anicteric. Neck; supple no lymphadenopathy, no thyromegaly or bruit Lungs: Normal respiratory rate/effort. Breath sounds bilateral equal and clear Heart: normal rate. s1s2 normal. No rub or gallop. has CABG scar Extremities: no edema. No varicose veins Neurological: Patient is awake alert follows commands, no focal deficit Skin: Warm and dry. Normal turgor. No rash. Palpitation: Normal elasticity for age Abdomen: Abdomen is soft. Bowel sounds +. There is no epigastric abdominal tenderness, no guarding/rigidity or organomegaly. prior surgical scars+ Psych: limited insight. normal affect/mood MSK: no joint tenderness or swelling. Digits and nails normal, no deformity : kidney or bladder not palpable Access: AVG Labs/imaging reviewed. Past medical history, past surgical history, family history, social history, allergy reviewed and noted as below Family Hx: no hx of CKD. Non contributory Objective - Vital Signs/Intake and Output Vital Signs (last 24 hours): Temp Pulse Resp BP Pulse Ox 98.2 F 76 20 125/65 97 08/22/17 15:55 08/22/17 15:55 08/22/17 15:55 08/22/17 15:55 08/22/17 15:55 Intake and Output: 08/22/17 08/22/17 06:59 18:59 Intake Total 730 Balance 730 - Medications Medications: Current Medications Acetaminophen (Tylenol 325mg Tab) 650 mg PO Q6 PRN PRN Reason: Pain, Mild (1-3) Acetylcysteine (Acetylcysteine 20%) 4 ml INH RQ6 [facility] Last Admin: 08/22/17 13:55 Dose: 4 ml Albuterol/Ipratropium (Duoneb 3 Mg/0.5 Mg (3 Ml) Ud) 3 ml INH RQ6 [facility] Last Admin: 08/22/17 13:52 Dose: 3 ml Clopidogrel Bisulfate (Plavix) 75 mg PO DAILY [facility] Last Admin: 08/22/17 14:33 Dose: 75 mg Famotidine (Pepcid) 20 mg PO DAILY [facility] Last Admin: 08/22/17 14:34 Dose: 20 mg Ferrous Sulfate (Feosol) 325 mg PO DAILY [facility] Last Admin: 08/22/17 14:33 Dose: 325 mg Heparin Sodium (Porcine) (Heparin) 2,000 units IVP MWF [facility] Last Admin: 08/20/17 16:30 Dose: 2,000 units Hydralazine HCl (Apresoline) 25 mg PO BID [facility] Last Admin: 08/22/17 10:00 Dose: Not Given Piperacillin Sod/Tazobactam Sod (Zosyn 2.25 Gm Iv Premix) 2.25 gm in 50 mls @ 100 mls/hr IVPB Q8H [facility] PRN Reason: Protocol Last Admin: 08/22/17 11:42 Dose: Not Given Azithromycin 500 mg/ Sodium (Chloride) 250 mls @ 250 mls/hr IVPB DAILY@1430 [facility] PRN Reason: Protocol Last Admin: 08/22/17 14:44 Dose: 250 mls/hr Vancomycin/Sodium Chloride (Vancomycin 1 Gm/Ns 200 Ml) 1 gm in 200 mls @ 133 mls/hr IVPB MWF@1600 [facility] PRN Reason: Protocol Insulin Aspart (Novolog) 0 unit SC ACHS [facility] PRN Reason: Protocol Last Admin: 08/22/17 11:30 Dose: Not Given Metoprolol Tartrate (Lopressor) 50 mg PO BID [facility] Last Admin: 08/22/17 10:00 Dose: Not Given Pregabalin (Lyrica) 25 mg PO DAILY [facility] Last Admin: 08/22/17 14:33 Dose: 25 mg Rosuvastatin Calcium (Crestor) 5 mg PO HS [facility] Last Admin: 08/21/17 21:02 Dose: 5 mg Sevelamer Carbonate (Renvela) 800 mg PO TIDCC [facility] Last Admin: 08/22/17 11:42 Dose: Not Given Vitamin B Complex/Vit C/Folic Acid (Nephro-Benjamin) 1 tab PO 0800 [facility] Last Admin: 08/22/17 09:07 Dose: Not Given - Labs Labs: 08/22/17 07:00 08/22/17 07:00 PT 11.5 SECONDS (9.7-12.2) 08/22/17 09:43 INR 1.1 08/22/17 09:43 APTT 33 SECONDS (21-34) 08/22/17 09:43
--- NOTE | 2017-08-22 18:58 | CARD ---
APPROVED REPORT EXAM: Two-dimensional and M-mode echocardiogram with Doppler and color Doppler. Other Information Quality : GoodRhythm : INDICATION Cardiac Disease: CAD Chest Pain Surgery/Intervention CABG: RISK FACTORS Hypertension Hyperlipidemia Diabetes 2D DIMENSIONS IVSd1.2 (0.7-1.1cm)LVDd4.6 (3.9-5.9cm) PWd1.2 (0.7-1.1cm)LVDs2.1 (2.5-4.0cm) FS (%) 54.5 %LVEF (%)75.0 (>50%) M-Mode DIMENSIONS RVDd1.87 (2.1-3.2cm)Left Atrium (MM)3.91 (2.5-4.0cm) IVSd1.11 (0.7-1.1cm)Aortic Root3.30 (2.2-3.7cm) LVDd5.34 (4.0-5.6cm)Aortic Cusp Exc.1.95 (1.5-2.0cm) PWd1.52 (0.7-1.1cm)FS (%) 46 % LVDs2.86 (2.0-3.8cm)LVEF (%)77 (>50%) Mitral Valve MV E Fwmmflnc22.7cm/sMV A Svsuetfk282.5cm/sE/A ratio0.8 TDI E/Lateral E'0.0E/Medial E'0.0 Tricuspid Valve TR Peak Lhbtsoln516yp/sTR Peak Gr.[id number] LEFT VENTRICLE The left ventricle is normal size. There is normal left ventricular wall thickness. The left ventricular function is normal. The left ventricular ejection fraction is within the normal range. No regional wall motion abnormalities noted. 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 There is no ventricular septal defect visualized. There is no left ventricular aneurysm. There is no mass noted in the left ventricle. RIGHT VENTRICLE The right ventricle is normal size. There is normal right ventricular wall thickness. The right ventricular systolic function is normal. ATRIA The left atrium size is normal. LA volume is mildly increased The right atrium size is normal. The interatrial septum is intact with no evidence for an atrial septal defect. AORTIC VALVE The aortic valve is normal in structure and function. No aortic regurgitation is present. There is no aortic valvular stenosis. There is no aortic valvular vegetation. MITRAL VALVE The mitral valve is normal in structure and function. There is no evidence of mitral valve prolapse. There is no mitral valve stenosis. There is no mitral valve regurgitation noted. TRICUSPID VALVE The tricuspid valve is normal in structure and function. There is no tricuspid valve regurgitation noted. There is no tricuspid valve prolapse or vegetation. There is no tricuspid valve stenosis. PULMONIC VALVE The pulmonary valve is normal in structure and function. There is no pulmonic valvular regurgitation. There is no pulmonic valvular stenosis. GREAT VESSELS The aortic root is normal in size. The ascending aorta is normal in size. The pulmonary artery is normal. The IVC is normal in size and collapses >50% with inspiration. PERICARDIAL EFFUSION The pericardium appears normal. There is no pleural effusion. <Conclusion> The left ventricular function is normal. The left ventricular ejection fraction is within the normal range. No regional wall motion abnormalities noted. The left atrium size is normal. LA volume is mildly increased
--- NOTE | 2017-08-22 19:19 | CP.PCM.PN ---
Subjective - Date & Time of Evaluation Date of Evaluation: 08/22/17 Time of Evaluation: 19:18 - Subjective Subjective: CHIEF COMPLAINTS TODAY : afebrile, c/o less cough/and SOB. NO ACUTE EVENTS OVERNIGHT. PT ON HD TODAY ( MWF) ROS. HEENT : N. Resp : +VE COUGH , NO wheezing , ?+VE pleuritic CP ,or hemoptysis Cardio : No anginal CP, PND, orthopnea, palpitation GI : No abd.pain, n/v ,diarrhea or GI bleeding . 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 Musculoskel : No joint swelling , Derm : No rash Psych : Normal affect. Ext : No swelling ,calf pain PE. Pt. is alert awake in no distress. V.S As noted in the chart Head ,ear nose,throat and eyes : Normal. Neck : Supple with normal carotids. Lungs: RT BASILAR RHONCHI Heart : S1 & S2 normal with S4. No murmur. Abd : Soft non tender with normal bowel sounds. Neuro : Moves all ext. with no localized deficit. Ext : No edema with intact pulses.Non tender calves Derm : No rashes or decubitus ulcer. LABS/RADIOLOGY: REVIEWED WBC 7.4 IMPROVING SPUTUM-PENDING mrsa SCREEN NEGATIVE ASSESSMENT CHEST PAIN RLL PNEUMONIA ?CAP VS ATYPICAL. CHF ESRD ON HD MWF PLAN : CHEST X-RAY CONSISTENT WITH RIGHT LOWER LOBE INFILTRATE. AGREE WITH iv ZOSYN 2.25 G iv EVERY 8 HOURLY. CONTINUE iv VANCOMYCIN 1 G POST-EACH HEMODIALYSIS MWF ON MTW X 5 DOSES. 08/20/17 fOLLOW-UP VANCO TROUGH PRIOR TO THE FOURTH DOSE AND KEEP IT BETWEEN 10 AND 20. ADD IV ZITHROMAX 500MG IV Q 24HRLY. 08/21/17 CHECK ATYPICAL TITRES INDUCE SPUTUM VIA DUONEB TREATMENTS. Objective - Vital Signs/Intake and Output Vital Signs (last 24 hours): Temp Pulse Resp BP Pulse Ox 98.2 F 76 20 125/65 97 08/22/17 15:55 08/22/17 15:55 08/22/17 15:55 08/22/17 15:55 08/22/17 15:55 Intake and Output: 08/22/17 08/23/17 18:59 06:59 Intake Total 730 Balance 730 - Medications Medications: Current Medications Acetaminophen (Tylenol 325mg Tab) 650 mg PO Q6 PRN PRN Reason: Pain, Mild (1-3) Acetylcysteine (Acetylcysteine 20%) 4 ml INH RQ6 [facility] Last Admin: 08/22/17 13:55 Dose: 4 ml Albuterol/Ipratropium (Duoneb 3 Mg/0.5 Mg (3 Ml) Ud) 3 ml INH RQ6 [facility] Last Admin: 08/22/17 13:52 Dose: 3 ml Clopidogrel Bisulfate (Plavix) 75 mg PO DAILY [facility] Last Admin: 08/22/17 14:33 Dose: 75 mg Famotidine (Pepcid) 20 mg PO DAILY [facility] Last Admin: 08/22/17 14:34 Dose: 20 mg Ferrous Sulfate (Feosol) 325 mg PO DAILY [facility] Last Admin: 08/22/17 14:33 Dose: 325 mg Heparin Sodium (Porcine) (Heparin) 2,000 units IVP MWF [facility] Last Admin: 08/20/17 16:30 Dose: 2,000 units Hydralazine HCl (Apresoline) 25 mg PO BID [facility] Last Admin: 08/22/17 17:31 Dose: 25 mg Piperacillin Sod/Tazobactam Sod (Zosyn 2.25 Gm Iv Premix) 2.25 gm in 50 mls @ 100 mls/hr IVPB Q8H [facility] PRN Reason: Protocol Last Admin: 08/22/17 11:42 Dose: Not Given Azithromycin 500 mg/ Sodium (Chloride) 250 mls @ 250 mls/hr IVPB DAILY@1430 [facility] PRN Reason: Protocol Last Admin: 08/22/17 14:44 Dose: 250 mls/hr Vancomycin/Sodium Chloride (Vancomycin 1 Gm/Ns 200 Ml) 1 gm in 200 mls @ 133 mls/hr IVPB MWF@1600 [facility] PRN Reason: Protocol Insulin Aspart (Novolog) 0 unit SC ACHS [facility] PRN Reason: Protocol Last Admin: 08/22/17 17:29 Dose: 4 unit Metoprolol Tartrate (Lopressor) 50 mg PO BID [facility] Last Admin: 08/22/17 17:31 Dose: 50 mg Pregabalin (Lyrica) 25 mg PO DAILY [facility] Last Admin: 08/22/17 14:33 Dose: 25 mg Rosuvastatin Calcium (Crestor) 5 mg PO HS [facility] Last Admin: 08/21/17 21:02 Dose: 5 mg Sevelamer Carbonate (Renvela) 800 mg PO TIDCC [facility] Last Admin: 08/22/17 17:30 Dose: 800 mg Vitamin B Complex/Vit C/Folic Acid (Nephro-Benjamin) 1 tab PO 0800 [facility] Last Admin: 08/22/17 09:07 Dose: Not Given - Labs Labs: 08/22/17 07:00 08/22/17 07:00 PT 11.5 SECONDS (9.7-12.2) 08/22/17 09:43 INR 1.1 08/22/17 09:43 APTT 33 SECONDS (21-34) 08/22/17 09:43 Assessment and Plan (1) Chest pain Status: Acute (2) Pneumonia Status: Acute (3) Congestive heart failure Status: Acute (4) ESRD (end stage renal disease) on dialysis Status: Acute
--- NOTE | 2017-08-22 22:55 | CP.PCM.PN ---
Subjective - Date & Time of Evaluation Date of Evaluation: 08/22/17 Time of Evaluation: 18:45 - Subjective Subjective: Patient seen and evaluated Denies chest pain and dyspnea Patient does not want to undergo cath Understands the risks and benefits Medical management for now Objective - Vital Signs/Intake and Output Vital Signs (last 24 hours): Temp Pulse Resp BP Pulse Ox 98.2 F 76 20 125/65 97 08/22/17 15:55 08/22/17 15:55 08/22/17 15:55 08/22/17 15:55 08/22/17 15:55 Intake and Output: 08/22/17 08/23/17 18:59 06:59 Intake Total 730 800 Balance 730 800 - Medications Medications: Current Medications Acetaminophen (Tylenol 325mg Tab) 650 mg PO Q6 PRN PRN Reason: Pain, Mild (1-3) Acetylcysteine (Acetylcysteine 20%) 4 ml INH RQ6 [facility] Last Admin: 08/22/17 19:58 Dose: Not Given Albuterol/Ipratropium (Duoneb 3 Mg/0.5 Mg (3 Ml) Ud) 3 ml INH RQ6 [facility] Last Admin: 08/22/17 19:58 Dose: 3 ml Clopidogrel Bisulfate (Plavix) 75 mg PO DAILY [facility] Last Admin: 08/22/17 14:33 Dose: 75 mg Famotidine (Pepcid) 20 mg PO DAILY [facility] Last Admin: 08/22/17 14:34 Dose: 20 mg Ferrous Sulfate (Feosol) 325 mg PO DAILY [facility] Last Admin: 08/22/17 14:33 Dose: 325 mg Heparin Sodium (Porcine) (Heparin) 2,000 units IVP MWF [facility] Last Admin: 08/20/17 16:30 Dose: 2,000 units Hydralazine HCl (Apresoline) 25 mg PO BID [facility] Last Admin: 08/22/17 17:31 Dose: 25 mg Piperacillin Sod/Tazobactam Sod (Zosyn 2.25 Gm Iv Premix) 2.25 gm in 50 mls @ 100 mls/hr IVPB Q8H [facility] PRN Reason: Protocol Last Admin: 08/22/17 20:50 Dose: 100 mls/hr Azithromycin 500 mg/ Sodium (Chloride) 250 mls @ 250 mls/hr IVPB DAILY@1430 [facility] PRN Reason: Protocol Last Admin: 08/22/17 14:44 Dose: 250 mls/hr Vancomycin/Sodium Chloride (Vancomycin 1 Gm/Ns 200 Ml) 1 gm in 200 mls @ 133 mls/hr IVPB MWF@1600 [facility] PRN Reason: Protocol Last Admin: 08/22/17 17:00 Dose: 133 mls/hr Insulin Aspart (Novolog) 0 unit SC ACHS [facility] PRN Reason: Protocol Last Admin: 08/22/17 21:02 Dose: Not Given Metoprolol Tartrate (Lopressor) 50 mg PO BID [facility] Last Admin: 08/22/17 17:31 Dose: 50 mg Pregabalin (Lyrica) 25 mg PO DAILY [facility] Last Admin: 08/22/17 14:33 Dose: 25 mg Rosuvastatin Calcium (Crestor) 5 mg PO HS [facility] Last Admin: 08/22/17 21:04 Dose: 5 mg Sevelamer Carbonate (Renvela) 800 mg PO TIDCC [facility] Last Admin: 08/22/17 17:30 Dose: 800 mg Vitamin B Complex/Vit C/Folic Acid (Nephro-Benjamin) 1 tab PO 0800 [facility] Last Admin: 08/22/17 09:07 Dose: Not Given - Labs Labs: 08/22/17 07:00 08/22/17 07:00 PT 11.5 SECONDS (9.7-12.2) 08/22/17 09:43 INR 1.1 08/22/17 09:43 APTT 33 SECONDS (21-34) 08/22/17 09:43
--- NOTE | 2017-08-23 01:08 | PN ---
DATE: 08/22/2017 SUBJECTIVE: Today the patient was seen while he was in dialysis. Denied any complaint of chest pain or palpitation. No shortness of breath, but complaining of congestive cough and generalized weakness. PHYSICAL EXAMINATION: VITAL SIGNS: The patient has blood pressure of 140/74, pulse is 76, respirations 20, temperature 98.5. HEENT: Head is normocephalic. NECK: Supple. Positive JVD. LUNGS: Show some rales at the bases. HEART: Regular rate and rhythm. No positive murmur. ABDOMEN: Soft. Tenderness to the epigastric area in the right upper quadrant which is chronic pain. BACK: There is some tenderness to the lumbar area. EXTREMITIES: There is no edema. There is an AV fistula on the left arm, which is patent. LABORATORY DATA: Blood work done today showed WBC of 7.4, hemoglobin 13.5, hematocrit 39.9 and platelets 177. Chemistry showed that sodium 142, potassium 5, chloride 99, BUN 66, creatinine 9.1 and calcium is 9.4. ASSESSMENT AND PLAN: The patient was offered to have a cardiac catheterization and his stress test was abnormal but the patient has issues with stress test and the case was discussed with Dr. Cordova and the stress test is postponed and consider treating the patient medically. The case was also discussed with Dr. Valentino, the insole filler. We will continue the antibiotics as per Dr. Mary Alice Yi and IV azithromycin was added ordered. Sd Garcia MD
[2017-08-23] MEDS: Albuterol-Ipratrop 3 mg / 0.5 (3 ml) UD INH SCH ×3 (01:20→14:16)
[2017-08-23] MEDS: Acetylcysteine 20% Inhal Soln (4ml) INH SCH ×3 (01:20→14:16)
[2017-08-23] MEDS: Piperacill/Tazo 2.25gm in Dex 2.25 GM/50 ML BAG IVPB SCH ×2 (03:04→13:12)
[2017-08-23] MEDS: (Novolog) Insulin Aspart, Recombinant 100 u/ml 10 ml vial SC SCH ×3 (07:29→16:25)
[2017-08-23 07:52] LABS: MEAN CELL VOLUME 92.4 fL (80.0-94.0); MEAN CORPUSCULAR HEMOGLOBIN 31.2 pg (27.0-31.0); MEAN CORPUSCULAR HGB CONC 33.8 g/dL (33.0-37.0); MEAN PLATELET VOLUME 10.1 fL (7.2-11.7); RBC 5.29 Mil/uL (4.40-5.90); WHITE BLOOD COUNT 7.6 K/uL (4.8-10.8)
[2017-08-23 08:03] LABS: HEMOGLOBIN 16.5 g/dL (12.0-18.0)
[2017-08-23 08:23] LABS: CALCIUM 9.6 mg/dl (8.6-10.4)
[2017-08-23] MEDS: Multivitamin Vitamin B Complex (Nephro-Vite) Tab PO SCH (09:25)
--- NOTE | 2017-08-23 12:07 | CP.PCM.PN ---
Subjective - Date & Time of Evaluation Date of Evaluation: 08/23/17 Time of Evaluation: 12:07 - Subjective Subjective: Nephrology Consultation Note: Assessment: stable Pneumonia, CHF, Hyperkalemia, AMS Diabetic chronic Kidney Disease (E11.22) Hypertensive Chronic Kidney Disease (I12.0) End stage renal disease (N18.6) dependence on hemodialysis (Z99.2) (MWF) via AVG Anemia (D64.9), Hyperphosphatemia (E83.39), Secondary Hyperparathyroidism (E21.1 ), HTN (I12.0) CAD s/p CABG, active smoker hx of peptic ulcer disease Plan: Will plan for HD today extra as pt with hyperkalemia. next HD tomorrow as ordered per MWF schedule, started with Nephrovite 1 tab/day last HB 13.5 hence no HARINDER with HD at present maintain hemodyanmics stable, BP controlled continue with phos binders Glycemic control Further work up/management as per primary team Dose meds/antibiotics for ESRD status. Avoid fleets enema/magnesium based laxatives. ID and cardiology following Thanks for allowing me to participate in care of your patient. Will follow patient with you. Please call if any Qs. d/w team Dr Solo Valentino Office: [phone] Chief Complaint; none now Reason for consult: ESRD management HPI: Pt is a 67 M with hx of ESRD on hemodialysis (MWF) via AVG, last dialysis sunday @[facility] with Dr Dawn, chronic anemia, hyperphosphatemia, secondary hyperparathyroidism, Diabetes Mellitus, hypertension, CAD s/p CABG, active smoker, hx of partial gastrectomy and peptic ulcer bleed presented with complaints of chest pain, cough and tiredness. he was lethargic when seen and not providing much hx ROS: Denies chest pain, palpitation, shortness of breath, leg swelling now. feels better Physical Examination: General Appearance: Comfortable, in no acute respiratory distress, co-operative . well appearing Vitals reviewed and noted as below Head; Atraumatic, normocephalic ENT: no ulcers no thrush. Tongue is midline. Oropharynx: no rash or ulcers. EYES: Pupils are equal, round and reactive to light accommodation. Eye muscles and extraocular movement intact. Sclera is anicteric. Neck; supple no lymphadenopathy, no thyromegaly or bruit Lungs: Normal respiratory rate/effort. Breath sounds bilateral equal and clear Heart: normal rate. s1s2 normal. No rub or gallop. has CABG scar Extremities: no edema. No varicose veins Neurological: Patient is awake alert follows commands, no focal deficit Skin: Warm and dry. Normal turgor. No rash. Palpitation: Normal elasticity for age Abdomen: Abdomen is soft. Bowel sounds +. There is no epigastric abdominal tenderness, no guarding/rigidity or organomegaly. prior surgical scars+ Psych: limited insight. normal affect/mood MSK: no joint tenderness or swelling. Digits and nails normal, no deformity : kidney or bladder not palpable Access: AVG Labs/imaging reviewed. Past medical history, past surgical history, family history, social history, allergy reviewed and noted as below Family Hx: no hx of CKD. Non contributory Objective - Vital Signs/Intake and Output Vital Signs (last 24 hours): Temp Pulse Resp BP Pulse Ox 98.2 F 74 20 155/69 H 100 08/23/17 07:05 08/23/17 07:05 08/23/17 07:05 08/23/17 07:05 08/23/17 07:05 Intake and Output: 08/23/17 08/23/17 06:59 18:59 Intake Total 1050 Balance 1050 - Medications Medications: Current Medications Acetaminophen (Tylenol 325mg Tab) 650 mg PO Q6 PRN PRN Reason: Pain, Mild (1-3) Acetylcysteine (Acetylcysteine 20%) 4 ml INH RQ6 [facility] Last Admin: 08/23/17 07:39 Dose: Not Given Albuterol/Ipratropium (Duoneb 3 Mg/0.5 Mg (3 Ml) Ud) 3 ml INH RQ6 [facility] Last Admin: 08/23/17 07:38 Dose: 3 ml Clopidogrel Bisulfate (Plavix) 75 mg PO DAILY [facility] Last Admin: 08/23/17 09:25 Dose: 75 mg Famotidine (Pepcid) 20 mg PO DAILY [facility] Last Admin: 08/23/17 09:25 Dose: 20 mg Ferrous Sulfate (Feosol) 325 mg PO DAILY [facility] Last Admin: 08/23/17 09:25 Dose: 325 mg Heparin Sodium (Porcine) (Heparin) 2,000 units IVP MWF [facility] Last Admin: 08/20/17 16:30 Dose: 2,000 units Hydralazine HCl (Apresoline) 25 mg PO BID [facility] Last Admin: 08/23/17 09:25 Dose: 25 mg Piperacillin Sod/Tazobactam Sod (Zosyn 2.25 Gm Iv Premix) 2.25 gm in 50 mls @ 100 mls/hr IVPB Q8H [facility] PRN Reason: Protocol Last Admin: 08/23/17 03:04 Dose: 100 mls/hr Azithromycin 500 mg/ Sodium (Chloride) 250 mls @ 250 mls/hr IVPB DAILY@1430 [facility] PRN Reason: Protocol Last Admin: 08/22/17 14:44 Dose: 250 mls/hr Vancomycin/Sodium Chloride (Vancomycin 1 Gm/Ns 200 Ml) 1 gm in 200 mls @ 133 mls/hr IVPB MWF@1600 [facility] PRN Reason: Protocol Last Admin: 08/22/17 17:00 Dose: 133 mls/hr Insulin Aspart (Novolog) 0 unit SC ACHS [facility] PRN Reason: Protocol Last Admin: 08/23/17 07:29 Dose: Not Given Metoprolol Tartrate (Lopressor) 50 mg PO BID [facility] Last Admin: 08/23/17 09:25 Dose: 50 mg Pregabalin (Lyrica) 25 mg PO DAILY [facility] Last Admin: 08/23/17 09:25 Dose: 25 mg Rosuvastatin Calcium (Crestor) 5 mg PO HS [facility] Last Admin: 08/22/17 21:04 Dose: 5 mg Sevelamer Carbonate (Renvela) 800 mg PO TIDCC [facility] Last Admin: 08/23/17 08:36 Dose: 800 mg Vitamin B Complex/Vit C/Folic Acid (Nephro-Benjamin) 1 tab PO 0800 [facility] Last Admin: 08/23/17 09:25 Dose: 1 tab - Labs Labs: 08/23/17 07:44 08/23/17 07:44 PT 11.5 SECONDS (9.7-12.2) 08/22/17 09:43 INR 1.1 08/22/17 09:43 APTT 33 SECONDS (21-34) 08/22/17 09:43
--- NOTE | 2017-08-23 12:24 | CP.PCM.PN ---
Subjective - Date & Time of Evaluation Date of Evaluation: 08/23/17 Time of Evaluation: 12:24 - Subjective Subjective: CHIEF COMPLAINTS TODAY : afebrile, -VE SOB PT ON HD TODAY ( MWF) ROS. HEENT : N. Resp : +VE COUGH , NO wheezing , ?+VE pleuritic CP ,or hemoptysis Cardio : No anginal CP, PND, orthopnea, palpitation GI : No abd.pain, n/v ,diarrhea or GI bleeding . [employer] : No headache, vertigo, focal deficit. Musculoskel : No joint swelling , Derm : No rash Psych : Normal affect. Ext : No swelling ,calf pain PE. Pt. is alert awake in no distress. V.S As noted in the chart Head ,ear nose,throat and eyes : Normal. Neck : Supple with normal carotids. Lungs: CLEAR. Heart : S1 & S2 normal with S4. No murmur. Abd : Soft non tender with normal bowel sounds. Neuro : Moves all ext. with no localized deficit. Ext : No edema with intact pulses.Non tender calves Derm : No rashes or decubitus ulcer. LABS/RADIOLOGY: REVIEWED WBC 7.4 IMPROVING CXR ; -VE INFILTRATE mrsa SCREEN NEGATIVE ASSESSMENT CHEST PAIN PNEUMONIA IMPROVED CHF ESRD ON HD MWF PLAN : DC IV ABX. PO ZITHROMAX DIRECTED X 5DAYS. CASE DISCUSSED W [facility] RAD Anushka. Objective - Vital Signs/Intake and Output Vital Signs (last 24 hours): Temp Pulse Resp BP Pulse Ox 98.2 F 74 20 155/69 H 100 08/23/17 07:05 08/23/17 07:05 08/23/17 07:05 08/23/17 07:05 08/23/17 07:05 Intake and Output: 08/23/17 08/23/17 06:59 18:59 Intake Total 1050 Balance 1050 - Medications Medications: Current Medications Acetaminophen (Tylenol 325mg Tab) 650 mg PO Q6 PRN PRN Reason: Pain, Mild (1-3) Acetylcysteine (Acetylcysteine 20%) 4 ml INH RQ6 [facility] Last Admin: 08/23/17 07:39 Dose: Not Given Albuterol/Ipratropium (Duoneb 3 Mg/0.5 Mg (3 Ml) Ud) 3 ml INH RQ6 [facility] Last Admin: 08/23/17 07:38 Dose: 3 ml Clopidogrel Bisulfate (Plavix) 75 mg PO DAILY [facility] Last Admin: 08/23/17 09:25 Dose: 75 mg Famotidine (Pepcid) 20 mg PO DAILY [facility] Last Admin: 08/23/17 09:25 Dose: 20 mg Ferrous Sulfate (Feosol) 325 mg PO DAILY [facility] Last Admin: 08/23/17 09:25 Dose: 325 mg Heparin Sodium (Porcine) (Heparin) 2,000 units IVP MWF [facility] Last Admin: 08/20/17 16:30 Dose: 2,000 units Hydralazine HCl (Apresoline) 25 mg PO BID [facility] Last Admin: 08/23/17 09:25 Dose: 25 mg Piperacillin Sod/Tazobactam Sod (Zosyn 2.25 Gm Iv Premix) 2.25 gm in 50 mls @ 100 mls/hr IVPB Q8H [facility] PRN Reason: Protocol Last Admin: 08/23/17 03:04 Dose: 100 mls/hr Azithromycin 500 mg/ Sodium (Chloride) 250 mls @ 250 mls/hr IVPB DAILY@1430 [facility] PRN Reason: Protocol Last Admin: 08/22/17 14:44 Dose: 250 mls/hr Vancomycin/Sodium Chloride (Vancomycin 1 Gm/Ns 200 Ml) 1 gm in 200 mls @ 133 mls/hr IVPB MWF@1600 [facility] PRN Reason: Protocol Last Admin: 08/22/17 17:00 Dose: 133 mls/hr Insulin Aspart (Novolog) 0 unit SC ACHS [facility] PRN Reason: Protocol Last Admin: 08/23/17 07:29 Dose: Not Given Metoprolol Tartrate (Lopressor) 50 mg PO BID [facility] Last Admin: 08/23/17 09:25 Dose: 50 mg Pregabalin (Lyrica) 25 mg PO DAILY [facility] Last Admin: 08/23/17 09:25 Dose: 25 mg Rosuvastatin Calcium (Crestor) 5 mg PO HS [facility] Last Admin: 08/22/17 21:04 Dose: 5 mg Sevelamer Carbonate (Renvela) 800 mg PO TIDCC [facility] Last Admin: 08/23/17 08:36 Dose: 800 mg Vitamin B Complex/Vit C/Folic Acid (Nephro-Benjamin) 1 tab PO 0800 [facility] Last Admin: 08/23/17 09:25 Dose: 1 tab - Labs Labs: 08/23/17 07:44 08/23/17 07:44 PT 11.5 SECONDS (9.7-12.2) 08/22/17 09:43 INR 1.1 08/22/17 09:43 APTT 33 SECONDS (21-34) 08/22/17 09:43 Assessment and Plan (1) Chest pain Status: Acute (2) Pneumonia Status: Acute (3) Congestive heart failure Status: Acute (4) ESRD (end stage renal disease) on dialysis Status: Acute
--- NOTE | 2017-08-23 15:16 | RAD ---
PROCEDURE: CHEST RADIOGRAPH, 1 VIEW HISTORY: f/u COMPARISON: 08/20/2017 and 10/23/2012 FINDINGS: LUNGS: The central pulmonary vasculature appears less engorged on the current exam. The vague right inferolateral coalescent airspace opacity shows interval improved aeration with no significant residual consolidation here appreciated. The left inferolateral pleural parenchymal scarring and/or thickening is similar. This also projects under blends with anterior left 5th rib. A 5 mm nodular opacity mid right lung zone unchanged since 2013 PLEURA: No pneumothorax or pleural fluid seen. CARDIOVASCULAR: Cardiomegaly, midline sternotomy. Coronary artery bypass surgery and left axillary vascular stent in all similar-appearing OSSEOUS STRUCTURES: Sternotomy. Bilateral shoulder arthrosis VISUALIZED UPPER ABDOMEN: Normal. OTHER FINDINGS: None. IMPRESSION: Interval decreased pulmonary venous congestion. Interval clearance right inferolateral coalescent vague airspace opacity/consolidation. Meds prior appearance may have been attributed to summation soft tissues given the short quick interval improvement here Other findings -as above.
[2017-08-23 16:18] VITALS: BP 174/72; PULSE 66; RESP 20; TEMP 97.6; O2SAT 97
[2017-08-23] MEDS: Azithromycin 500 MG in Sodium Chloride 0.9% 250 ML IVPB SCH (16:19)
--- NOTE | 2017-08-23 16:36 | PCM.HF ---
Heart Failure Core Measure - Heart Failure Ejection Fraction: 40 % or Greater FRAN Inhibitor Prescribed: No Contraindication/Reason for not providing: ESRD Beta-Theresa Prescribed: Metoprolol Succinate Angiotensin II Receptor Theresa Prescribed: No Contraindication/Reason for not providing: ESRD AnticoagulationTherapy for Atrial Fibrillation/Atrialflutter: No Contraindication/Reason for not providing: NO HX OF AFIB Aldosterone Antagonist Prescribed: No Contraindication/Reason for not providing: EF IS GREATER THAN 40 Hydralazine Nitrate Prescribed: Yes Implantable Cardioverter Defibrillator Therapy: No Contraindication/Reason for not providing: NO INDICATION Cardiac Resynchronization Therapy Prescribed: No Contraindication/Reason for not providing: NO INDICATION - Follow up Will be discharged to: Home Follow Up Date (must be within 7 days from discharge): 08/28/17 Follow Up Time: 09:00
--- NOTE | 2017-08-23 16:36 | CP.PCM.PN ---
Subjective - Date & Time of Evaluation Date of Evaluation: 08/23/17 Time of Evaluation: 16:35 - Subjective Subjective: PATIENT WAS ADMITTED FOR CHEST PAIN AND PNA AAOX3 / ON ROOM AIR NO SIGN OF DISTRESS NOTED Objective - Vital Signs/Intake and Output Vital Signs (last 24 hours): Temp Pulse Resp BP Pulse Ox 97.6 F 66 20 174/72 H 97 08/23/17 16:18 08/23/17 16:18 08/23/17 16:18 08/23/17 16:18 08/23/17 16:18 Intake and Output: 08/23/17 08/23/17 06:59 18:59 Intake Total 1050 730 Balance 1050 730 - Medications Medications: Current Medications Acetaminophen (Tylenol 325mg Tab) 650 mg PO Q6 PRN PRN Reason: Pain, Mild (1-3) Acetylcysteine (Acetylcysteine 20%) 4 ml INH RQ6 [facility] Last Admin: 08/23/17 14:16 Dose: Not Given Albuterol/Ipratropium (Duoneb 3 Mg/0.5 Mg (3 Ml) Ud) 3 ml INH RQ6 [facility] Last Admin: 08/23/17 14:16 Dose: Not Given Clopidogrel Bisulfate (Plavix) 75 mg PO DAILY [facility] Last Admin: 08/23/17 09:25 Dose: 75 mg Famotidine (Pepcid) 20 mg PO DAILY [facility] Last Admin: 08/23/17 09:25 Dose: 20 mg Ferrous Sulfate (Feosol) 325 mg PO DAILY [facility] Last Admin: 08/23/17 09:25 Dose: 325 mg Heparin Sodium (Porcine) (Heparin) 2,000 units IVP MWF [facility] Last Admin: 08/23/17 13:58 Dose: Not Given Hydralazine HCl (Apresoline) 25 mg PO BID [facility] Last Admin: 08/23/17 09:25 Dose: 25 mg Piperacillin Sod/Tazobactam Sod (Zosyn 2.25 Gm Iv Premix) 2.25 gm in 50 mls @ 100 mls/hr IVPB Q8H [facility] PRN Reason: Protocol Last Admin: 08/23/17 13:12 Dose: 100 mls/hr Azithromycin 500 mg/ Sodium (Chloride) 250 mls @ 250 mls/hr IVPB DAILY@1430 [facility] PRN Reason: Protocol Last Admin: 08/23/17 16:19 Dose: 250 mls/hr Vancomycin/Sodium Chloride (Vancomycin 1 Gm/Ns 200 Ml) 1 gm in 200 mls @ 133 mls/hr IVPB MWF@1600 [facility] PRN Reason: Protocol Last Admin: 08/22/17 17:00 Dose: 133 mls/hr Insulin Aspart (Novolog) 0 unit SC ACHS [facility] PRN Reason: Protocol Last Admin: 08/23/17 16:25 Dose: Not Given Metoprolol Tartrate (Lopressor) 50 mg PO BID [facility] Last Admin: 08/23/17 09:25 Dose: 50 mg Pregabalin (Lyrica) 25 mg PO DAILY [facility] Last Admin: 08/23/17 09:25 Dose: 25 mg Rosuvastatin Calcium (Crestor) 5 mg PO HS [facility] Last Admin: 08/22/17 21:04 Dose: 5 mg Sevelamer Carbonate (Renvela) 800 mg PO TIDCC [facility] Last Admin: 08/23/17 14:30 Dose: Not Given Vitamin B Complex/Vit C/Folic Acid (Nephro-Benjamin) 1 tab PO 0800 [facility] Last Admin: 08/23/17 09:25 Dose: 1 tab - Labs Labs: 08/23/17 07:44 08/23/17 07:44 PT 11.5 SECONDS (9.7-12.2) 08/22/17 09:43 INR 1.1 08/22/17 09:43 APTT 33 SECONDS (21-34) 08/22/17 09:43 Assessment and Plan - Assessment and Plan (Free Text) Assessment: PATIENT SEEN AND EXAMINED AT THE BEDSIDE LUNG SOUND CLEAR STRESS TEST ABNORMAL PATIENT REFUSES CATH DR ARMSTRONG EXPLAIN THE RISK AND PATIENT IS WILLING TO TAKE THE RISK REPEAT CXR SHOW SIGNIFICANT IMPROVING PER DR GRAHAM PATIENT NEED 5 DAYS OF ABX DISCUSS WITH DR MARTINEZ WHO AGREE AND CLEAR PATIENT FOR DC FOLLOW UP WITH DR MARTINEZ IN HIS OFFICE IN 1-2 WEEK ---CALL FOR APPOINTMENT FOLLOW WITH DR ARMSTRONG IN HIS OFFICE ---CALL FOR APPOINTMENT CONTINUE ALL YOUR HOME MEDICATION NEW PRESCRIPTION GIVEN Z-FLORENCE 2 TABS FIRST DOSE THEN ONE TAB DAILY FOR 4 DAYS ACTIVITY TOLERATED CALL DR MARTINEZ OR GO TO THE EMERGENCY ROOM IF SYMPTOMS RETURN OR WORSENING DISCUSS WITH PATIENT WHO AGREE AND VERBALIZED UNDERSTANDING
--- NOTE | 2017-08-26 08:39 | PN ---
DATE: 08/23/2017 SUBJECTIVE: Today, the patient is alert and awake. She is weak. She denies any shortness of breath, no chest pain, no palpitation. PHYSICAL EXAMINATION: VITAL SIGNS: The patient has blood pressure of 141/65, pulse is 66, respirations 18, temperature 97.4. NECK: Supple. There is no JVD. LUNGS: Clear. HEART: Regular rate ad rhythm. ABDOMEN: Soft, nontender, positive bowel sounds. EXTREMITIES: There is no edema. There is AV fistula in the left arm. The patient had some blood test done and WBC 7.6, hemoglobin is 16.5, hematocrit 48.9, and platelet 227. Chemistry showed that the sodium is 140, potassium , chloride 97, BUN is 47, creatinine is 6.9. glucose 105, calcium 9.6. The blood culture done is pending. PLAN: The case was discussed with Dr. Solo Valentino, the franchise sales manager. The patient is going to have dialysis today and also a chest x-ray is ordered by Dr. Mary Alice Yi, BOB and will consider p.o. antibiotics, it depends on the chest x-ray to be performed as per ID, and so the case was reviewed with the nurse practitioner, Francesco. Sd Garcia MD
--- NOTE | 2017-09-03 07:35 | DS ---
HISTORY OF PRESENT ILLNESS: This patient is a 67-year-old male with history of hypertension, diabetes, and end stage renal disease and peptic ulcer disease, coronary artery disease, CABG x2. The patient came to the emergency room recently complaining of chest pain, and few hours prior to coming to the hospital, the patient was the day of coming to the emergency room. The patient was evaluated in the emergency room and was admitted. , the patient has history of CABG x2, end stage renal disease, peptic ulcer disease, and diabetes, hypertension. PHYSICAL EXAMINATION: NECK: Positive for JVD. LUNGS: Some rales at the bases. ABDOMEN: Soft. Tenderness to the right upper quadrant in the epigastric area which is old. EXTREMITIES: There was an AV fistula on the left arm, and also, the patient has a renal consult added. Dr. Solo Valentino seen the patient and also Dr. Mary Alice Yi, since the patient was diagnosed also of having pneumonia. The patient had a cardiology consult by Dr. Leonard Cordova. The patient had myocardial perfusion scan which was abnormal, and Cardiology has advised the patient to have cardiac catheterization, that the patient had recent cardiac cath and also two CABG. The patient refused cardiac catheterization and case was discussed with Dr. Cordova, bond underwriter, and agreed to treat the patient conservatively, that is aspirin and Plavix. So, the patient has improved as I mentioned, and the patient will be discharged home under this medication, and also on medication, he was taking prior to admission. Sd Garcia MD
== END 2017-08-23 18:15 | disposition home or self-care (01) | DRG 193 ==
LOC: C.ER 08:40 → C.9E 11:17 → C.5S 12:59
PROVIDERS: ADMIT Specialist; ATTEND Specialist
PROC: 5A1D70Z Performance of Urinary Filtration, Intermittent, Less than 6 Hours Per Day (ICD-10-PCS; principal; 2017-08-22)
DX: J18.9 Pneumonia, unspecified organism (principal); N18.6 End stage renal disease; I25.110 Atherosclerotic heart disease of native coronary artery with unstable angina pectoris; I13.2 Hypertensive heart and chronic kidney disease with heart failure and with stage 5 chronic kidney disease, or end stage renal disease; J44.0 Chronic obstructive pulmonary disease with (acute) lower respiratory infection; N25.81 Secondary hyperparathyroidism of renal origin; I50.9 Heart failure, unspecified; E87.5 Hyperkalemia; Z99.2 Dependence on renal dialysis; E78.00 Pure hypercholesterolemia, unspecified; E11.22 Type 2 diabetes mellitus with diabetic chronic kidney disease; D64.9 Anemia, unspecified; Z95.1 Presence of aortocoronary bypass graft; F17.210 Nicotine dependence, cigarettes, uncomplicated; Z79.4 Long term (current) use of insulin

== ENCOUNTER 2017-10-09 08:14 | Inpatient (IN) | payer MEDICARE, MEDICAID ==
[2017-10-09 08:14] VITALS: BMI 30.9
[2017-10-09 09:38] LABS: BASO % 0.6 % (0.0-2.0); EOS # 0.1 K/uL (0.0-0.7); EOS % 2.3 % (0.0-4.0); LYMPH # 0.8 K/uL (1.0-4.3); LYMPH % 13.2 % (20.0-40.0); MEAN CELL VOLUME 91.3 fL (80.0-94.0); MEAN CORPUSCULAR HEMOGLOBIN 30.2 pg (27.0-31.0); MEAN PLATELET VOLUME 8.9 fL (7.2-11.7); MONO # 0.6 K/uL (0.0-0.8); NEUT # 4.3 K/uL (1.8-7.0); NEUT % 73.9 % (50.0-75.0); NRBC % 0.1 % (0.0-2.0); RBC 3.78 Mil/uL (4.40-5.90); RED CELL DISTRIBUTION WIDTH 16.1 % (11.5-14.5); WHITE BLOOD COUNT 5.8 K/uL (4.8-10.8)
[2017-10-09 09:40] LABS: HEMOGLOBIN 11.4 g/dL (12.0-18.0)
[2017-10-09 09:45] LABS: INR 1.1; PROTHROMBIN TIME 11.5 SECONDS (9.7-12.2)
[2017-10-09] MEDS ORDERED: Iohexol 240 (50 ml) PO ONE (09:54)
[2017-10-09 09:56] LABS: ALB/GLOB RATIO 1.3 (1.0-2.1); ALBUMIN 4.1 g/dL (3.5-5.0); CALCIUM 9.9 mg/dl (8.6-10.4)
[2017-10-09 09:57] LABS: TROPONIN I 0.014 ng/mL (0.00-0.120)
[2017-10-09] MEDS ORDERED: Iohexol 240 (50 ml) ONE (10:00)
--- NOTE | 2017-10-09 10:18 | RAD ---
Date of service: 10/09/2017 PROCEDURE: CHEST RADIOGRAPH, 1 VIEW HISTORY: abd pain COMPARISON: 08/23/2017 FINDINGS: LUNGS: No interval pulmonary pathology noted. The 5 mm nodule right mid lung zone similar to prior study which was previously compared an unchanged with an earlier 2013 exam Trace discoid scope atelectasis and or scarring left inferolateral lung now less conspicuous than before 6 mm low-density indeterminate nodular opacity left mid lung zone-projecting over the anterior left 5th rib this is difficult to appreciate as such on the prior study-its clinical significance-if any is unclear. PLEURA: No pneumothorax or pleural fluid seen. CARDIOVASCULAR: Cardiomegaly, midline sternotomy. Coronary artery bypass clips and left axillary vascular stent -all similar appearing OSSEOUS STRUCTURES: Nine sternotomy. Bilateral shoulder arthrosis VISUALIZED UPPER ABDOMEN: No free air seen OTHER FINDINGS: None. IMPRESSION: No consolidation. No subdiaphragmatic free air Indeterminate 6 mm low-density nodular opacity left mid lung zone the projects over the anterior left 5th rib - its its clinical significance (if any) is unclear. Not appreciated as such on prior study. CT noncontrast chest should be clarifying if needed The right mid lung zone more dense nodule is stable since 2013
--- NOTE | 2017-10-09 10:42 | C.PDOC ---
History Of Present Illness 67 year old male, whose PMHx includes ESRD (Mon,Wed, Fri) presents to the ED for evaluation of abdominal pain which began two days ago. Patient last received full dialysis treatment yesterday. Patient denies fever, chills, chest pain, shortness of breath, nausea, vomiting and diarrhea. Time Seen by Provider: 10/09/17 08:40 Chief Complaint (Nursing): Abdominal Pain History Per: Patient History/Exam Limitations: no limitations Onset/Duration Of Symptoms: Days (2) Current Symptoms Are (Timing): Still Present Location Of Pain/Discomfort: Diffuse Radiation Of Pain To:: None Quality Of Discomfort: "Pain" Associated Symptoms: denies: Fever, Chills, Nausea, Vomiting, Diarrhea Additional History Per: Patient Past Medical History Reviewed: Historical Data, Nursing Documentation, Vital Signs Vital Signs: Last Vital Signs Temp 98.5 F 10/09/17 13:11 Pulse 77 10/09/17 13:11 Resp 18 10/09/17 13:11 BP 161/76 H 10/09/17 13:11 Pulse Ox 100 10/09/17 13:11 - Medical History PMH: CAD, CHF, Diabetes, Gastrointestinal Ulcer, HTN, Hypercholesterolemia, Hyperlipidemia, End Stage Renal Disease, Chronic Kidney Disease Surgical History: CABG, Cholecystectomy - [facility] Procedures (08/20/17) EXCISION OF DESCENDING COLON, ENDO, DIAGN (02/26/17) EXCISION OF STOMACH, ENDO, DIAGN (02/26/17) FLUOROSCOPY OF LEFT HEART USING LOW OSMOLAR CONTRAST (07/29/16) FLUOROSCOPY OF MULT COR ART USING L OSM CONTRAST (07/29/16) FLUOROSCOPY OF SING COR A GRAFT USING L OSM CONTRAST (07/29/16) HEMODIALYSIS (01/02/13) MEASURE CARDIAC SAMPL & PRESSURE, BILATERAL, PERC (08/27/15) MEASURE OF CARDIAC SAMPL & PRESSURE, L HEART, PERC APPROACH (07/29/16) PACKED CELL TRANSFUSION (01/02/13) PERFORMANCE OF URINARY FILTRATION, MULTIPLE (08/27/15) PERFORMANCE OF URINARY FILTRATION, SINGLE (07/29/16) PLAIN RADIOGRAPHY OF MULT COR A GRAFT USING OTH CONTRAST (08/27/15) PLAIN RADIOGRAPHY OF MULT COR ART USING OTH CONTRAST (08/27/15) PLAIN RADIOGRAPHY OF RIGHT AND LEFT HEART USING OTH CONTRAST (08/27/15) TRANSFUSE NONAUT RED BLOOD CELLS IN PERIPH VEIN, PERC (02/26/17) VENOUS CATHETERIZATION FOR RENAL DIALYSIS (01/02/13) Family History: States: Unknown Family Hx - Social History Hx Tobacco Use: Yes Hx Alcohol Use: No Hx Substance Use: No - Immunization History Hx Tetanus Toxoid Vaccination: (unk) Hx Influenza Vaccination: Yes Hx Pneumococcal Vaccination: No (unk) Review Of Systems Constitutional: Negative for: Fever, Chills Cardiovascular: Negative for: Chest Pain Respiratory: Negative for: Shortness of Breath Gastrointestinal: Positive for: Abdominal Pain. Negative for: Nausea, Vomiting Physical Exam - Physical Exam Appears: Non-toxic, No Acute Distress Skin: Normal Color, Warm, Dry Head: Atraumatic, Normacephalic Eye(s): bilateral: Normal Inspection Oral Mucosa: Moist Neck: Supple Chest: Symmetrical, No Deformity, No Tenderness Cardiovascular: Rhythm Regular, No Murmur Respiratory: Normal Breath Sounds, No Rales, No Rhonchi, No Wheezing Gastrointestinal/Abdominal: Soft, Tenderness (diffuse ), No Guarding, No Rebound Extremity: Normal ROM, Capillary Refill (less than 2 seconds ) Neurological/Psych: Oriented x3, Normal Speech, Normal Cognition ED Course And Treatment - Laboratory Results Result Diagrams: 10/09/17 09:28 10/09/17 09:28 ECG: Interpreted By Me, Viewed By Me ECG Rhythm: Sinus Rhythm ECG Interpretation: No Changes From Prior (08/20/2017) Interpretation Of ECG: Normal Sinus Rhythm at rate 82bpm. Q-wave present in leads II, III, aVF. Nonspecific ST/T wave changes. Rate From EC O2 Sat by Pulse Oximetry: 99 (on RA) Pulse Ox Interpretation: Normal - Other Rad CXR X-Ray: Interpreted by Me, Viewed By Me, Read By Radiologist Interpretation: PROCEDURE: CHEST RADIOGRAPH, 1 VIEW. HISTORY: abd pain. COMPARISON: 08/23/2017. FINDINGS: LUNGS: No interval pulmonary pathology noted. The 5 mm nodule right mid lung zone similar to prior study which was previously compared an unchanged with an earlier 2013 exam. Trace discoid scope atelectasis and or scarring left inferolateral lung now less conspicuous than before. 6 mm low-density indeterminate nodular opacity left mid lung zone- projecting over the anterior left 5th rib this is difficult to appreciate as such on the prior study-its clinical significance-if any is unclear. PLEURA: No pneumothorax or pleural fluid seen. CARDIOVASCULAR: Cardiomegaly, midline sternotomy. Coronary artery bypass clips and left axillary vascular stent -all similar appearing. OSSEOUS STRUCTURES: Nine sternotomy. Bilateral shoulder arthrosis. VISUALIZED UPPER ABDOMEN: No free air seen. OTHER FINDINGS: None. IMPRESSION: No consolidation. No subdiaphragmatic free air. Indeterminate 6 mm low-density nodular opacity left mid lung zone the projects over the anterior left 5th rib - its its clinical significance (if any) is unclear. Not appreciated as such on prior study. CT noncontrast chest should be clarifying if needed. The right mid lung zone more dense nodule is stable since 2013 Medical Decision Making Medical Decision Making: Assessment: abdominal pain Plan: * bloodwork * urinalysis * CT A/P * CXR * EKG * Morphine IVP * Protonix IVP * Zofran IVP * reassess and disposition Progress: bloodwork, urinalysis, CT A/P, CXR, EKG ordered and reviewed. Morphine IVP, Protonix IVP and Zofran IVP given. 1457- abd. pain/partial sbo discussed with pmd and will admit to medical surgical floor surgical consult for dr. Mohamud Disposition Discussed With Dr.: Sd Garcia Doctor Will See Patient In The: Hospital Counseled Patient/Family Regarding: Studies Performed, Diagnosis - Disposition Referrals: Santos Mohamud Jr., MD [Staff Provider] - Disposition: HOSPITALIZED Disposition Time: 14:59 Condition: FAIR Forms: [facility] (Yi) - Clinical Impression Clinical Impression: Abdominal pain, SBO (small bowel obstruction) - Scribe Statement The provider has reviewed the documentation as recorded by the Scribe (Brooklyn Lanier) Provider Attestation: All medical record entries made by the Scribe were at my direction and personally dictated by me. I have reviewed the chart and agree that the record accurately reflects my personal performance of the history, physical exam, medical decision making, and the department course for this patient. I have also personally directed, reviewed, and agree with the discharge instructions and disposition.
--- NOTE | 2017-10-09 14:59 | CT ---
Date of service: 10/09/2017 PROCEDURE: CT Abdomen and Pelvis with contrast HISTORY: abd pain COMPARISON: 02/26/2017 TECHNIQUE: Contrast dose: Oral contrast Omnipaque 240 No IV contrast administer Radiation dose: Total exam DLP = 453 mGy-cm. This CT exam was performed using one or more of the following dose reduction techniques: Automated exposure control, adjustment of the mA and/or kV according to patient size, and/or use of iterative reconstruction technique. FINDINGS: LOWER THORAX: There is left lateral lung base pleural and perifissural pleural thickening scarring were minimal pleural-based nodular contour to it suggested. This is not appreciated as such on the prior exam. In large part findings are compatible with post inflammatory change. The nodular component may also be postinflammatory however given the interval appearance consider noncontrast CT chest imaging for current further evaluation Midline sternotomy status noted LIVER: Unremarkable. No gross lesion or ductal dilatation. GALLBLADDER AND BILE DUCTS: No normal-appearing gallbladder -inferred cholecystectomy status with clip present extra hepatic post cholecystectomy bile duct dilatation suggested PANCREAS: Unremarkable. No gross lesion or ductal dilatation. SPLEEN: Unremarkable. ADRENALS: Unremarkable. No mass. KIDNEYS AND URETERS: Bilateral renal cortical nephrosclerosis No hydronephrosis. No solid mass. Possible right renal small cyst VASCULATURE: Atherosclerotic vascular calcifications present. . BOWEL: There is mid level central marked small bowel focal dilatation measuring up to 9 cm on coronal series 601, image 29 -36 . This is an interval change. Proximal and distal to this segment, small bowel loops also appear borderline distended -for example measuring up to 2.9 cm in maximal coronal with (series 601, image 41). There are gastric clips present - noted on the prior and current study. Along the inferior aspect of this gastric clips come there are nearly contiguous small bowel loops with mural thickening present an element of concomitant gastric ulcer changes here contiguous small bowel mural thickening also needs to be considered. The small bowel all is grossly abnormal immediately below the stomach with postsurgical clips present. No gross free air seen. Apparent on the prior study (axis series 3, image 55. The small bowel loops in this area also appear mildly distended. Not all of these small bowel loops are opacified with oral contrast. No prior oral contrast was administered The priors of surgical clips in the left upper abdomen are less clearly appreciated on this exam-this may in part be partially obscured by the oral contrast on this exam. There is contrast reaching the more distal small bowel loops which are normal in caliber. Moderate stool retention. No large bowel obstruction suggested. Few rectosigmoid diverticulitis. No diverticulitis appreciated No extrinsic ventral hernia. APPENDIX: Normal appendix. PERITONEUM: Unremarkable. No free fluid. No free air. LYMPH NODES: Unremarkable. No enlarged lymph nodes. BLADDER: Unremarkable. REPRODUCTIVE: Extensive bilateral coarse seminal vesicle calcifications. Prostate size probably top-normal. . BONES: Old right anterior inferior rib probable fracture deformity - similar-appearing to 2017. Lumbar spondylosis. Large geode left superior [id number] degenerative disc disease and degenerative subchondral L2-3 cystic endplate changes noted. No interval acute fracture appreciated Right intramedullary gigi present OTHER FINDINGS: None. IMPRESSION: Bordering the inferior postsurgical gastric changes, are abnormal appearing small bowel loops. Here small bowel contiguous gastric mural thickening is present. Ulcer changes here are 1 consideration. Clinical correlation with past medical history is recommended. These abnormal small-bowel loops near gastric surgical changes are an interval change. Associated small bowel dilatation consistent with elements of small bowel obstruction. A particularly prominent central mall bowel loop is more focally distended than others -a closed loop small bowel obstruction/internal hernia here is a consideration. No obstructing mass appreciated. Oral contrast does reach more distal small bowel loops. The colon is not collapsed. No colonic bowel obstruction. Rectosigmoid diverticulosis -no diverticulitis appreciated Unremarkable appearing appendix. No free air Other findings -as above. Comments: The bowel in stomach findings were directly discussed with the ER physician today this at approximately 2:50 p.m. on 10/09/2017
[2017-10-09 15:30] LABS: SQUAMOUS EPITHIAL 1 /hpf (0-5); URINE BILIRUBIN NEGATIVE (NEGATIVE); URINE BLOOD NEGATIVE (NEGATIVE); URINE CLARITY Clear (Clear); URINE COLOR Straw (YELLOW); URINE GLUCOSE (UA) 1+ mg/dL (Normal); URINE LEUKOCYTE ESTERASE NEG Leu/uL (Negative); URINE PROTEIN 2+ mg/dL (NEGATIVE); URINE UROBILINOGEN NORMAL mg/dL (0.2-1.0)
--- NOTE | 2017-10-09 16:44 | CP.PCM.CON ---
History of Present Illness - History of Present Illness History of Present Illness: General Surgery Consult for Dr. Mohamud CC: Abd pain HPI: 67M with a PMH of diabetes, HTN, ESRD, hypercholesterolemia, and CAD presents with intermittent, sharp, cramping, left sided abdominal pain that started 4 days ago. Pain waxes and waned but has been increasing in severity. Patient describes localized pain over the left lower quadrant radiating to the back. He notes experiencing nausea at onset but denies vomiting. Patient denies fever, chills, or night sweats. He reports taking becca seltzer with slight relief and indicates walking for short periods exacerbate his symptoms. He denies trouble passing gas. Patients last meal was last night. His last bowel movement was this morning. Patient currently ambulates assisted with a cane PMHx - diabetes, HTN, ESRD, hypercholesterolemia, CAD PSHx - cholecystectomy, CABG Meds: MAR reviewed Allergies - NKDA Social Hx - denies alcohol or drug use, smokes 1 cigarette per day Fhx: Non-contributory Review of Systems - Review of Systems All systems: reviewed and no additional remarkable complaints except (HPI) - Constitutional Constitutional: absent: Chills, Fever, Night Sweats - EENT Eyes: absent: Change in Vision, Loss of Peripheral Vision Ears: absent: Decreased Hearing, Abnormal Hearing Nose/Mouth/Throat: absent: Nasal Congestion, Nasal Obstruction, Dry Mouth - Cardiovascular Cardiovascular: absent: Leg Edema, Pedal Edema - Respiratory Respiratory: absent: Dyspnea, Pain on Inspiration - Gastrointestinal Gastrointestinal: Abdominal Pain, Nausea - Musculoskeletal Musculoskeletal: Abnormal Gait Past Patient History - Past Medical History & Family History Past Medical History?: Yes - Past Social History Smoking Status: Former Smoker - CARDIAC Hx Congestive Heart Failure: Yes Hx Hypercholesterolemia: Yes Hx Hypertension: Yes - PULMONARY Hx Respiratory Disorders: No - NEUROLOGICAL Hx Neurological Disorder: No - HEENT Hx HEENT Problems: No - RENAL Hx Chronic Kidney Disease: Yes - ENDOCRINE/METABOLIC Hx Diabetes Mellitus Type 2: Yes - HEMATOLOGICAL/ONCOLOGICAL Hx Blood Disorders: No - INTEGUMENTARY Hx Dermatological Problems: No - MUSCULOSKELETAL/RHEUMATOLOGICAL Hx Falls: No - GASTROINTESTINAL Hx Gastrointestinal Disorders: Yes - GENITOURINARY/GYNECOLOGICAL Hx Genitourinary Disorders: No - PSYCHIATRIC Hx Substance Use: No - SURGICAL HISTORY Hx Cholecystectomy: Yes Hx Coronary Artery Bypass Graft: Yes - ANESTHESIA Hx Anesthesia: Yes Hx Anesthesia Reactions: No Meds Allergies/Adverse Reactions: Allergies Allergy/AdvReac Type Severity Reaction Status Date / Time No Known Allergies Allergy Verified 10/09/17 08:35 Physical Exam - Constitutional Appears: Well, No Acute Distress - Head Exam Head Exam: ATRAUMATIC, NORMAL INSPECTION, NORMOCEPHALIC - Eye Exam Eye Exam: EOMI - ENT Exam ENT Exam: Mucous Membranes Moist, Normal Exam - Neck Exam Neck exam: Positive for: Full Rom. Negative for: Lymphadenopathy, Tenderness - Respiratory Exam Respiratory Exam: NORMAL BREATHING PATTERN. absent: Accessory Muscle Use, Respiratory Distress - Cardiovascular Exam Cardiovascular Exam: REGULAR RHYTHM, +S1, +S2. absent: Bradycardia, Tachycardia - GI/Abdominal Exam GI & Abdominal Exam: Distended, Soft, Tenderness. absent: Guarding, Pulsatile Mass, Rigid - Extremities Exam Extremities exam: Positive for: normal inspection. Negative for: pedal edema - Back Exam Back exam: NORMAL INSPECTION - Neurological Exam Neurological exam: Normal Gait, Oriented x3 Additional comments: ambulating assisted with walker - Psychiatric Exam Psychiatric exam: Normal Affect, Normal Mood - Skin Skin Exam: Dry, Warm Results - Vital Signs Recent Vital Signs: Last Vital Signs Temp 98.2 F 10/09/17 15:46 Pulse 101 H 10/09/17 15:46 Resp 16 10/09/17 15:46 BP 153/79 H 10/09/17 15:46 Pulse Ox 100 10/09/17 15:46 - Labs Result Diagrams: 10/09/17 09:28 10/09/17 09:28 Labs: Laboratory Results - last 24 hr 10/09/17 10/09/17 10/09/17 09:20 09:28 09:28 WBC 5.8 RBC 3.78 L Hgb 11.4 L D Hct 34.5 L MCV 91.3 MCH 30.2 MCHC 33.0 RDW 16.1 H Plt Count 262 MPV 8.9 Neut % (Auto) 73.9 Lymph % (Auto) 13.2 L [place] % (Auto) 10.0 Eos % (Auto) 2.3 Baso % (Auto) 0.6 Neut # (Auto) 4.3 Lymph # (Auto) 0.8 L [place] # (Auto) 0.6 Eos # (Auto) 0.1 Baso # (Auto) 0.0 PT 11.5 INR 1.1 APTT 39 H Sodium Potassium Chloride Carbon Dioxide Anion Gap BUN Creatinine Est GFR ( Amer) Est GFR (Non-Af Amer) Random Glucose Lactic Acid 0.9 Calcium Total Bilirubin AST ALT Alkaline Phosphatase Troponin I Total Protein Albumin Globulin Albumin/Globulin Ratio Lipase Urine Color Urine Clarity Urine pH Ur Specific [place] Urine Protein Urine Glucose (UA) Urine Ketones Urine Blood Urine Nitrate Urine Bilirubin Urine Urobilinogen Ur Leukocyte Esterase Urine WBC (Auto) Urine RBC (Auto) Ur Squamous Epith Cells 10/09/17 10/09/17 09:28 15:25 WBC RBC Hgb Hct MCV MCH MCHC RDW Plt Count MPV Neut % (Auto) Lymph % (Auto) [place] % (Auto) Eos % (Auto) Baso % (Auto) Neut # (Auto) Lymph # (Auto) [place] # (Auto) Eos # (Auto) Baso # (Auto) PT INR APTT Sodium 142 Potassium 4.5 Chloride 93 L Carbon Dioxide 35 H Anion Gap 18 BUN 33 H Creatinine 6.6 H Est GFR ( Amer) 10 Est GFR (Non-Af Amer) 8 Random Glucose 155 H Lactic Acid Calcium 9.9 Total Bilirubin 0.4 AST 15 L D ALT 23 Alkaline Phosphatase 146 H Troponin I 0.0140 Total Protein 7.4 Albumin 4.1 Globulin 3.2 Albumin/Globulin Ratio 1.3 Lipase 82 Urine Color Straw Urine Clarity Clear Urine pH 8.0 Ur Specific [place] 1.006 Urine Protein 2+ H Urine Glucose (UA) 1+ H Urine Ketones Negative Urine Blood Negative Urine Nitrate Negative Urine Bilirubin Negative Urine Urobilinogen Normal Ur Leukocyte Esterase Neg Urine WBC (Auto) < 1 Urine RBC (Auto) < 1 Ur Squamous Epith Cells 1 - Imaging and Cardiology CT scan - abdomen Status: Image reviewed by me, Report reviewed by me Assessment & Plan - Assessment and Plan (Free Text) Assessment: 67M presents with left-sided abdominal pain Plan: NPO IV Fluids/IV abx analgesics NG tube placement with suction serial abdominal exams f/u recs per Dr. Oneida Roberts PGY4
[2017-10-09] MEDS ORDERED: Metoprolol 1 mg/ml Inj IVP PRN (16:54)
[2017-10-09] MEDS ORDERED: Dextrose 5%/0.45% NS 1,000 ML IV SCH (17:00)
[2017-10-09] MEDS: Nitroglycerin 2% Ointment Foilpak UD TOP SCH (17:37)
[2017-10-09] MEDS: Dextrose 5%/0.45% NS 1,000 ML IV SCH (17:37)
--- NOTE | 2017-10-09 18:49 | RAD ---
Date of service: 10/09/2017 HISTORY: s/p NGT COMPARISON: Chest radiograph performed approximately 9 hours prior. FINDINGS: LUNGS: Stable right midlung 7 mm pulmonary nodule. No active pulmonary disease. PLEURA: No significant pleural effusion identified, no pneumothorax apparent. CARDIOVASCULAR: Prior sternotomy with sternal wires and surgical clips redemonstrated. Atherosclerotic aortic calcifications. Cardiomediastinal silhouette stably enlarged. OSSEOUS STRUCTURES: Unchanged. VISUALIZED UPPER ABDOMEN: Partially imaged bowel with retained enteric contrast. OTHER FINDINGS: Enteric tube with tip in the stomach, but the side port in the distal esophagus. Advancement is recommended. IMPRESSION: New enteric tube with side hole in the distal esophagus. Advancement is recommended. No other significant interval change.
--- NOTE | 2017-10-09 20:45 | CARD ---
APPROVED REPORT Date of service: 10/09/2017 EKG Measurement Heart [id number] <Conclusion> Normal sinus rhythm Inferior infarct, age undetermined Abnormal ECG
[2017-10-10] MEDS: Nitroglycerin 2% Ointment Foilpak UD TOP SCH ×4 (00:13→18:00)
[2017-10-10] MEDS: Dextrose 5%/0.45% NS 1,000 ML IV SCH ×2 (05:56→19:00)
[2017-10-10 07:03] LABS: BASO % 0.7 % (0.0-2.0); EOS # 0.2 K/uL (0.0-0.7); EOS % 4.6 % (0.0-4.0); HEMOGLOBIN 11.4 g/dL (12.0-18.0); LYMPH # 0.9 K/uL (1.0-4.3); LYMPH % 17.7 % (20.0-40.0); MEAN CELL VOLUME 91.6 fL (80.0-94.0); MEAN CORPUSCULAR HEMOGLOBIN 30.2 pg (27.0-31.0); MEAN PLATELET VOLUME 9.4 fL (7.2-11.7); MONO # 0.5 K/uL (0.0-0.8); MONO % 10.6 % (0.0-10.0); NEUT # 3.3 K/uL (1.8-7.0); NEUT % 66.4 % (50.0-75.0); NRBC % 0.1 % (0.0-2.0); RBC 3.78 Mil/uL (4.40-5.90); RED CELL DISTRIBUTION WIDTH 16.6 % (11.5-14.5)
[2017-10-10 08:12] LABS: ALB/GLOB RATIO 1.3 (1.0-2.1); ALBUMIN 3.7 g/dL (3.5-5.0); CALCIUM 9.7 mg/dl (8.6-10.4)
--- NOTE | 2017-10-10 09:02 | CP.PCM.PN ---
Subjective - Date & Time of Evaluation Date of Evaluation: 10/10/17 Time of Evaluation: 09:02 - Subjective Subjective: much improved\hungry wants ngt out bdomen soft fu ct ordered Objective - Vital Signs/Intake and Output Vital Signs (last 24 hours): Temp Pulse Resp BP Pulse Ox 98.9 F 79 20 147/71 95 10/10/17 07:36 10/10/17 07:36 10/10/17 07:36 10/10/17 07:36 10/10/17 07:36 Intake and Output: 10/10/17 10/10/17 06:59 18:59 Intake Total 500 640 Output Total 0 750 Balance 500 -110 - Medications Medications: Current Medications Dextrose/Sodium Chloride (Dextrose 5%/0.45% Ns 1000 Ml) 1,000 mls @ 80 mls/hr IV .[id number] [facility] Last Admin: 10/10/17 05:56 Dose: Not Given Morphine Sulfate (Morphine) 2 mg IVP Q8 PRN PRN Reason: Pain, severe (8-10) Last Admin: 10/10/17 00:35 Dose: 2 mg Nitroglycerin (Nitro-Bid 2% Oint) 1 ea TOP Q6 [facility] Last Admin: 10/10/17 05:58 Dose: 1 ea Ondansetron HCl (Zofran Inj) 4 mg IVP Q8 PRN PRN Reason: Nausea/Vomiting Pantoprazole Sodium (Protonix Inj) 40 mg IVP DAILY [facility] - Labs Labs: 10/10/17 06:33 10/10/17 06:33 PT 11.5 SECONDS (9.7-12.2) 10/09/17 09:28 INR 1.1 10/09/17 09:28 APTT 39 SECONDS (21-34) H 10/09/17 09:28
--- NOTE | 2017-10-10 09:45 | HP ---
HISTORY OF PRESENT ILLNESS: This patient is a 67-year-old male. The patient has a history of multiple abdominal surgeries and two bypasses for CABG, and the patient has history of end-stage renal disease. Came to the emergency room, the patient was complaining of abdominal pain. Does have intermittent progressive abdominal pain, mostly located to the lower part of the umbilicus. The patient had been passing flatus but denies any nausea or vomiting. The patient denies chest pain, shortness of breath, or diarrhea. 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 Also, the patient has cholecystectomy done with cholangitis and end-stage renal disease. The patient also has history of diabetes. MEDICATIONS: The patient was on multiple medications. ALLERGIES: THE PATIENT HAS NO KNOWN ALLERGIES. SOCIAL HISTORY: The patient has been living alone. No smoking. The patient reports alcohol abuse. FAMILY HISTORY: No inherited disease. REVIEW OF SYSTEMS: The patient has shortness of breath on exertion. Cardiovascular: Denies any chest pain. GI: The patient having intermittent abdominal pain but denies any nausea or vomiting and is passing flatus. : The patient is anuric, being on dialysis. Neuro: The patient feels weak. PHYSICAL EXAMINATION: GENERAL: The patient is alert, awake, and oriented x3. No apparent distress. VITAL SIGNS: Blood pressure 152/71, pulse 79, respirations 16, temperature 98.5. NECK: Supple. LUNGS: Clear. HEART: Regular rate and rhythm. CHEST: An old scar in the mid sternum. ABDOMEN: Soft. There are multiple surgical scars over the abdomen, and the abdomen is mildly distended. The bowel sound is audible, but there is mild tenderness below the umbilicus, mostly on the left side. EXTREMITIES: There is an AV fistula on the left arm. No edema in the lower extremities. LABORATORY DATA: Blood work done shows WBC is 5.8, hemoglobin 11.5, hematocrit 34.5, and platelet is 262. Chemistry showed sodium 142, potassium 4.5, chloride , bicarb is 35, BUN 33, creatinine 6.6, and glucose 165. , AST 16, ALT 23, alkaline phosphatase is 146, total protein 7.4, albumin 4.1, globulin 3.2, lipase is 82. Coagulation showed PT 11.5, INR 1.1, PTT 39. The patient also has a CT of the abdomen and pelvis that revealed there were abnormal appearing small-bowel loops with bordering postsurgical gastric changes. There is a small-bowel dilatation consistent with element of small-bowel obstruction, particularly prominent central small-bowel loop, this is more focally distended than others, closed loop small-bowel obstruction, internal hernia is a consideration. The oral contrast does reach more distended small-bowel loops. The colon is prolapsed with colonic bowel obstruction. EKG is normal sinus rhythm, inferior infarct, which is old. ASSESSMENT: The patient is admitted with diagnosis of small-bowel obstruction and end-stage renal disease, hypertension, gastric ulcer, and diabetes. The patient also has debility. The patient has a consult with Dr. Mohamud which is the surgical consult and with Dr. Garcia. PLAN: The plan is that the patient will be n.p.o. today. NG tube was placed by the surgical team. We are going to monitor the blood pressure, and if the patient remains stable, we will consider starting clear liquid in the morning. The case was discussed and reviewed with Gillian Diaz, the nurse practitioner. Sd Garcia MD
--- NOTE | 2017-10-10 14:31 | CT ---
Date of service: 10/10/2017 PROCEDURE: CT Abdomen and Pelvis without intravenous contrast HISTORY: follow up closed loop sbo/clinically improved COMPARISON: None. TECHNIQUE: Helical CT of the abdomen and pelvis was performed without oral or intravenous contrast as per referring physician request. Contrast dose: None Radiation dose: Total exam DLP = 568.87 mGy-cm. This CT exam was performed using one or more of the following dose reduction techniques: Automated exposure control, adjustment of the mA and/or kV according to patient size, and/or use of iterative reconstruction technique. FINDINGS: LOWER THORAX: Linear atelectasis or fibrosis at the left base reiterated. Right lower lobe granuloma reiterated. LIVER: Unremarkable. No gross lesion or ductal dilatation. GALLBLADDER AND BILE DUCTS: Unremarkable. PANCREAS: Unremarkable. No gross lesion or ductal dilatation. SPLEEN: Unremarkable. ADRENALS: Unremarkable. No mass. KIDNEYS AND URETERS: Facet calcifications remain favored over intrarenal calculi at the left kidney with none identified at the right. Bilateral renal cortical atrophy reiterated. VASCULATURE: Atherosclerotic nonaneurysmal aortic iliac changes reiterated. BOWEL: Nasogastric tube terminates in the gastric viscus with postoperative changes again seen related to the fundus. Irregular mural changes at the gastro jejunal anastomosis are reiterated. Oral contrast from prior CT has progressed into the vast majority colon with none identified at the small bowel at this time. The appendix is also filled with oral contrast material. The prior dilated segment of jejunum at a jejuno-jejunal anastomosis appears to be decompressed significantly, with [id number] residual dilatation remaining. The pattern of obstruction appears to significantly right improved, however, this segment is sheriff of exhibits mural thickening more so currently than on the prior examination appears unclear whether this is a function of spasm or local edema, but neoplasm is not excluded and clinical follow-up is advised. APPENDIX: Normal appendix. PERITONEUM: Unremarkable. No free fluid. No free air. LYMPH NODES: Unremarkable. No enlarged lymph nodes. BLADDER: Unremarkable. REPRODUCTIVE: Mildly enlarged prostate gland again evident. Left inguinal hernia again identified containing only mesenteric fat. BONES: Proximal right femoral intramedullary nail reiterated. OTHER FINDINGS: None. IMPRESSION: Significant decompression of proximal jejunal loop is appreciated with associated jejuno-jejunal anastomosis is identified with residual dilatation. Irregular thickening of the gastrojejunal anastomosis as well as this distal segment is appreciated. Clinical follow-up advised as the etiology is unclear. The findings were discussed with Dr. Mohamud by telephone immediately abort after evaluation of this examination and he is uncertain of the clinical past requiring surgery in this patient as well. Other lesser findings as discussed above.
--- NOTE | 2017-10-10 14:42 | CP.PCM.CON ---
History of Present Illness - History of Present Illness History of Present Illness: Nephrology Consultation Note: Assessment: stable SBO, pain abdomen Diabetic chronic Kidney Disease (E11.22) Hypertensive Chronic Kidney Disease (I12.0) End stage renal disease (N18.6) dependence on hemodialysis (Z99.2) (MWF) via AVG Anemia (D64.9), Hyperphosphatemia (E83.39), Secondary Hyperparathyroidism (E21.1 ), HTN (I12.0) CAD s/p CABG, active smoker hx of peptic ulcer disease Plan: Will plan for HD today as ordered per MW schedule, once on diet start Nephrovite 1 tab/day last HB 11.4 hence no HARINDER with HD at present maintain hemodynamics stable, BP controlled continue with phos binders once on diet, can hold for now Glycemic control Further work up/management as per primary team Dose meds/antibiotics for ESRD status. Avoid fleets enema/magnesium based laxatives. surgery, GI following Thanks for allowing me to participate in care of your patient. Will follow patient with you. Please call if any Qs. Dr Solo Valentino Office: [phone] Chief Complaint; abdomen pain Reason for consult: ESRD management HPI: Pt is a 67 M with hx of ESRD on hemodialysis (MWF) via AVG, last dialysis Sunday @[facility], chronic anemia, hyperphosphatemia, secondary hyperparathyroidism , Diabetes Mellitus, hypertension, CAD s/p CABG, active smoker, hx of partial gastrectomy and peptic ulcer bleed presented with complaints of abdomen pain and found to have SBO. s/p NG tube, pt feels better with pain but uncomfortable due to NG tube denies CP/sob/nausea/vomitting ROS: Denies chest pain, palpitation, shortness of breath, leg swelling now. feels better Physical Examination: General Appearance: Comfortable, in no acute respiratory distress, co-operative . well appearing Vitals reviewed and noted as below Head; Atraumatic, normocephalic ENT: no ulcers no thrush. Tongue is midline. Oropharynx: no rash or ulcers. has NG tube EYES: Pupils are equal, round and reactive to light accommodation. Eye muscles and extraocular movement intact. Sclera is anicteric. Neck; supple no lymphadenopathy, no thyromegaly or bruit Lungs: Normal respiratory rate/effort. Breath sounds bilateral equal and clear Heart: normal rate. s1s2 normal. No rub or gallop. has CABG scar Extremities: no edema. No varicose veins Neurological: Patient is awake alert follows commands, no focal deficit Skin: Warm and dry. Normal turgor. No rash. Palpitation: Normal elasticity for age Abdomen: Abdomen is soft. Bowel sounds +. There is no epigastric abdominal tenderness, no guarding/rigidity or organomegaly. prior surgical scars+ Psych: limited insight. normal affect/mood MSK: no joint tenderness or swelling. Digits and nails normal, no deformity : kidney or bladder not palpable Access: AVG Labs/imaging reviewed. Past medical history, past surgical history, family history, social history, allergy reviewed and noted as below Family Hx: no hx of CKD. Non contributory Past Patient History - Past Medical History & Family History Past Medical History?: Yes - Past Social History Smoking Status: Current Some Days Smoker - CARDIAC Hx Cardiac Disorders: Yes Hx Congestive Heart Failure: Yes Hx Hypercholesterolemia: Yes Hx Hypertension: Yes - PULMONARY Hx Respiratory Disorders: No - NEUROLOGICAL Hx Neurological Disorder: No - HEENT Hx HEENT Problems: No - RENAL Hx Chronic Kidney Disease: Yes Type of Dialysis Access: avf Date of Last Dialysis Treatment: 10/08/17 - ENDOCRINE/METABOLIC Hx Diabetes Mellitus Type 2: Yes - HEMATOLOGICAL/ONCOLOGICAL Hx Blood Disorders: No - INTEGUMENTARY Hx Dermatological Problems: No - MUSCULOSKELETAL/RHEUMATOLOGICAL Hx Falls: No - GASTROINTESTINAL Hx Gastrointestinal Disorders: Yes - GENITOURINARY/GYNECOLOGICAL Hx Genitourinary Disorders: No - PSYCHIATRIC Hx Psychophysiologic Disorder: No Hx Substance Use: No - SURGICAL HISTORY Hx Surgeries: Yes Hx Cholecystectomy: Yes Hx Coronary Artery Bypass Graft: Yes - ANESTHESIA Hx Anesthesia: Yes Hx Anesthesia Reactions: No Hx Malignant Hyperthermia: No Has any member of the family had a problem w/ anesthesia?: No Meds Allergies/Adverse Reactions: Allergies Allergy/AdvReac Type Severity Reaction Status Date / Time No Known Allergies Allergy Verified 10/09/17 08:35 - Medications Medications: Current Medications Dextrose/Sodium Chloride (Dextrose 5%/0.45% Ns 1000 Ml) 1,000 mls @ 80 mls/hr IV .[id number] [facility] Last Admin: 10/10/17 05:56 Dose: Not Given Morphine Sulfate (Morphine) 2 mg IVP Q8 PRN PRN Reason: Pain, severe (8-10) Last Admin: 10/10/17 00:35 Dose: 2 mg Nitroglycerin (Nitro-Bid 2% Oint) 1 ea TOP Q6 [facility] Last Admin: 10/10/17 12:00 Dose: Not Given Ondansetron HCl (Zofran Inj) 4 mg IVP Q8 PRN PRN Reason: Nausea/Vomiting Pantoprazole Sodium (Protonix Inj) 40 mg IVP DAILY [facility] Last Admin: 10/10/17 10:44 Dose: Not Given Results - Vital Signs Recent Vital Signs: Last Vital Signs Temp 97.3 F L 10/10/17 12:40 Pulse 88 10/10/17 12:40 Resp 20 10/10/17 12:40 BP 128/74 10/10/17 12:40 Pulse Ox 97 10/10/17 12:40 - Labs Result Diagrams: 10/10/17 06:33 10/10/17 06:33 Labs: Laboratory Results - last 24 hr 10/09/17 10/10/17 10/10/17 15:25 06:33 06:33 WBC 5.0 RBC 3.78 L Hgb 11.4 L Hct 34.6 L MCV 91.6 MCH 30.2 MCHC 33.0 RDW 16.6 H Plt Count 168 MPV 9.4 Neut % (Auto) 66.4 Lymph % (Auto) 17.7 L [place] % (Auto) 10.6 H Eos % (Auto) 4.6 H Baso % (Auto) 0.7 Neut # (Auto) 3.3 Lymph # (Auto) 0.9 L [place] # (Auto) 0.5 Eos # (Auto) 0.2 Baso # (Auto) 0.0 Sodium 138 Potassium 4.6 Chloride 96 L Carbon Dioxide 29 Anion Gap 17 BUN 39 H Creatinine 7.7 H* Est GFR ( Amer) 9 Est GFR (Non-Af Amer) 7 POC Glucose (mg/dL) Random Glucose 95 Calcium 9.7 Total Bilirubin 0.4 AST 26 ALT 11 L D Alkaline Phosphatase 128 H Total Protein 6.7 Albumin 3.7 Globulin 2.9 Albumin/Globulin Ratio 1.3 Urine Color Straw Urine Clarity Clear Urine pH 8.0 Ur Specific [place] 1.006 Urine Protein 2+ H Urine Glucose (UA) 1+ H Urine Ketones Negative Urine Blood Negative Urine Nitrate Negative Urine Bilirubin Negative Urine Urobilinogen Normal Ur Leukocyte Esterase Neg Urine WBC (Auto) < 1 Urine RBC (Auto) < 1 Ur Squamous Epith Cells 1 Hep Bs Antigen Hep Bs Antibody 10/10/17 10/10/17 10/10/17 07:21 09:17 09:17 WBC RBC Hgb Hct MCV MCH MCHC RDW Plt Count MPV Neut % (Auto) Lymph % (Auto) [place] % (Auto) Eos % (Auto) Baso % (Auto) Neut # (Auto) Lymph # (Auto) [place] # (Auto) Eos # (Auto) Baso # (Auto) Sodium Potassium Chloride Carbon Dioxide Anion Gap BUN Creatinine Est GFR ( Amer) Est GFR (Non-Af Amer) POC Glucose (mg/dL) 87 Random Glucose Calcium Total Bilirubin AST ALT Alkaline Phosphatase Total Protein Albumin Globulin Albumin/Globulin Ratio Urine Color Urine Clarity Urine pH Ur Specific [place] Urine Protein Urine Glucose (UA) Urine Ketones Urine Blood Urine Nitrate Urine Bilirubin Urine Urobilinogen Ur Leukocyte Esterase Urine WBC (Auto) Urine RBC (Auto) Ur Squamous Epith Cells Hep Bs Antigen Negative Hep Bs Antibody Positive
[2017-10-11] MEDS: Nitroglycerin 2% Ointment Foilpak UD TOP SCH ×4 (00:11→17:15)
[2017-10-11] MEDS: Dextrose 5%/0.45% NS 1,000 ML IV SCH ×3 (06:41→19:10)
[2017-10-11 11:09] LABS: BASO # 0.1 K/uL (0.0-0.2); BASO % 1.5 % (0.0-2.0); EOS # 0.3 K/uL (0.0-0.7); EOS % 5.3 % (0.0-4.0); HEMOGLOBIN 11.7 g/dL (12.0-18.0); LYMPH % 21.1 % (20.0-40.0); MEAN CELL VOLUME 91.2 fL (80.0-94.0); MEAN CORPUSCULAR HEMOGLOBIN 30.5 pg (27.0-31.0); MEAN CORPUSCULAR HGB CONC 33.4 g/dL (33.0-37.0); MEAN PLATELET VOLUME 8.5 fL (7.2-11.7); MONO # 0.7 K/uL (0.0-0.8); MONO % 15.6 % (0.0-10.0); NEUT # 2.7 K/uL (1.8-7.0); NEUT % 56.5 % (50.0-75.0); NRBC % 0.2 % (0.0-2.0); RBC 3.84 Mil/uL (4.40-5.90); RED CELL DISTRIBUTION WIDTH 16.1 % (11.5-14.5); WHITE BLOOD COUNT 4.8 K/uL (4.8-10.8)
--- NOTE | 2017-10-11 11:19 | CP.PCM.CON ---
History of Present Illness - History of Present Illness History of Present Illness: GI Fellow PGY4, Consult note. Patient is 67yo M presented with acute abdominal pain and found to have SBO on CT scan. NG tube was placed and symptoms imrpoved dramatically since yesterday. Repeat CT imaging much improved. Patient denies abdominal pain, distension, nausea or voimting at this point. PMHx - CAD, HTN, DM, ESRD, PUD. PSHx - Bilroth I. CABG, jose. FMHx - None SocHx - Occasional smoking, Denies alcohol. 12pt ROS completed and negative except for above. Past Patient History - Past Medical History & Family History Past Medical History?: Yes - Past Social History Smoking Status: Current Some Days Smoker - CARDIAC Hx Cardiac Disorders: Yes Hx Congestive Heart Failure: Yes Hx Hypercholesterolemia: Yes Hx Hypertension: Yes - PULMONARY Hx Respiratory Disorders: No - NEUROLOGICAL Hx Neurological Disorder: No - HEENT Hx HEENT Problems: No - RENAL Hx Chronic Kidney Disease: Yes Type of Dialysis Access: avf Date of Last Dialysis Treatment: 10/08/17 - ENDOCRINE/METABOLIC Hx Diabetes Mellitus Type 2: Yes - HEMATOLOGICAL/ONCOLOGICAL Hx Blood Disorders: No - INTEGUMENTARY Hx Dermatological Problems: No - MUSCULOSKELETAL/RHEUMATOLOGICAL Hx Falls: No - GASTROINTESTINAL Hx Gastrointestinal Disorders: Yes - GENITOURINARY/GYNECOLOGICAL Hx Genitourinary Disorders: No - PSYCHIATRIC Hx Psychophysiologic Disorder: No Hx Substance Use: No - SURGICAL HISTORY Hx Surgeries: Yes Hx Cholecystectomy: Yes Hx Coronary Artery Bypass Graft: Yes - ANESTHESIA Hx Anesthesia: Yes Hx Anesthesia Reactions: No Hx Malignant Hyperthermia: No Has any member of the family had a problem w/ anesthesia?: No Meds Allergies/Adverse Reactions: Allergies Allergy/AdvReac Type Severity Reaction Status Date / Time No Known Allergies Allergy Verified 10/09/17 08:35 - Medications Medications: Current Medications Dextrose/Sodium Chloride (Dextrose 5%/0.45% Ns 1000 Ml) 1,000 mls @ 80 mls/hr IV .[id number] [facility] Last Admin: 10/11/17 06:41 Dose: Not Given Morphine Sulfate (Morphine) 2 mg IVP Q8 PRN PRN Reason: Pain, severe (8-10) Last Admin: 10/11/17 05:37 Dose: 2 mg Nitroglycerin (Nitro-Bid 2% Oint) 1 ea TOP Q6 [facility] Last Admin: 10/11/17 05:37 Dose: 1 ea Ondansetron HCl (Zofran Inj) 4 mg IVP Q8 PRN PRN Reason: Nausea/Vomiting Last Admin: 10/10/17 17:30 Dose: 4 mg Pantoprazole Sodium (Protonix Inj) 40 mg IVP DAILY [facility] Last Admin: 10/11/17 10:07 Dose: 40 mg Physical Exam - Constitutional Appears: Well, Non-toxic, No Acute Distress - Head Exam Head Exam: NORMAL INSPECTION - Eye Exam Eye Exam: Normal appearance - ENT Exam ENT Exam: Normal Exam - Neck Exam Neck exam: Positive for: Normal Inspection - Respiratory Exam Respiratory Exam: Clear to Auscultation Bilateral, NORMAL BREATHING PATTERN. absent: Wheezes - Cardiovascular Exam Cardiovascular Exam: REGULAR RHYTHM, +S1, +S2 - GI/Abdominal Exam GI & Abdominal Exam: Normal Bowel Sounds, Soft. absent: Distended, Tenderness - Rectal Exam Rectal Exam: Deferred - Extremities Exam Extremities exam: Positive for: normal inspection - Neurological Exam Neurological exam: Alert, CN II-XII Intact, Oriented x3 - Psychiatric Exam Psychiatric exam: Normal Affect, Normal Mood - Skin Skin Exam: Normal Color Results - Vital Signs Recent Vital Signs: Last Vital Signs Temp 98.4 F 10/11/17 08:00 Pulse 72 10/11/17 08:00 Resp 20 10/11/17 08:00 BP 125/71 10/11/17 08:00 Pulse Ox 96 10/11/17 08:00 - Labs Result Diagrams: 10/11/17 11:02 10/11/17 08:18 Labs: Laboratory Results - last 24 hr 10/10/17 10/10/17 10/10/17 09:17 16:32 16:33 WBC RBC Hgb Hct MCV MCH MCHC RDW Plt Count MPV Neut % (Auto) Lymph % (Auto) [place] % (Auto) Eos % (Auto) Baso % (Auto) Neut # (Auto) Lymph # (Auto) [place] # (Auto) Eos # (Auto) Baso # (Auto) Sodium Potassium Chloride Carbon Dioxide Anion Gap BUN Creatinine Est GFR ( Amer) Est GFR (Non-Af Amer) POC Glucose (mg/dL) 74 85 Random Glucose Calcium Hep Bs Antibody Positive 10/10/17 10/11/17 10/11/17 21:52 07:22 08:18 WBC RBC Hgb Hct MCV MCH MCHC RDW Plt Count MPV Neut % (Auto) Lymph % (Auto) [place] % (Auto) Eos % (Auto) Baso % (Auto) Neut # (Auto) Lymph # (Auto) [place] # (Auto) Eos # (Auto) Baso # (Auto) Sodium 139 Potassium 4.7 Chloride 95 L Carbon Dioxide 31 H Anion Gap 18 BUN 26 H Creatinine 6.4 H Est GFR ( Amer) 11 Est GFR (Non-Af Amer) 9 POC Glucose (mg/dL) 196 H 78 Random Glucose 121 H Calcium 10.0 Hep Bs Antibody 10/11/17 11:02 WBC 4.8 RBC 3.84 L Hgb 11.7 L Hct 35.0 MCV 91.2 MCH 30.5 MCHC 33.4 RDW 16.1 H Plt Count 225 MPV 8.5 Neut % (Auto) 56.5 Lymph % (Auto) 21.1 [place] % (Auto) 15.6 H Eos % (Auto) 5.3 H Baso % (Auto) 1.5 Neut # (Auto) 2.7 Lymph # (Auto) 1.0 [place] # (Auto) 0.7 Eos # (Auto) 0.3 Baso # (Auto) 0.1 Sodium Potassium Chloride Carbon Dioxide Anion Gap BUN Creatinine Est GFR ( Amer) Est GFR (Non-Af Amer) POC Glucose (mg/dL) Random Glucose Calcium Hep Bs Antibody Assessment & Plan - Assessment and Plan (Free Text) Assessment: 67M presenting with SBO, resolving. #SBO #Hx PUD, Bilroth I - Radiologist note gastric wall thickening and possible ulcer on CT. #CAD s/p CABG #DM #HTN #ESRD Plan: -HDS -Continue supportive care -Resolving SBO. NGT removed -CT abdomen images reviewed. Improved SBO. No evidence of mass or lesion causing SBO. Abnormal gastric changes, concerning for ulcer. -PPI, carafate daily -Hold plavix -Advance diet as tolerated per Surgery. -EGD tomorrow to evaluate abnormal gastric findings and Hx of PUD, Bilroth I -NPO past midnight. - Date & Time Date: 10/11/17 Time: 06:25
--- NOTE | 2017-10-11 13:27 | CP.PCM.PN ---
Subjective - Date & Time of Evaluation Date of Evaluation: 10/11/17 Time of Evaluation: 13:26 - Subjective Subjective: Nephrology Consultation Note: Assessment: stable SBO, pain abdomen: improved Diabetic chronic Kidney Disease (E11.22) Hypertensive Chronic Kidney Disease (I12.0) End stage renal disease (N18.6) dependence on hemodialysis (Z99.2) (MWF) via AVG Anemia (D64.9), Hyperphosphatemia (E83.39), Secondary Hyperparathyroidism (E21.1 ), HTN (I12.0) CAD s/p CABG, active smoker hx of peptic ulcer disease Plan: Will plan for HD tomorrow as ordered per MWF schedule, once on diet start Nephrovite 1 tab/day last HB 11.4 hence no HARINDER with HD at present maintain hemodynamics stable, BP controlled continue with phos binders once on diet, can hold for now Glycemic control Further work up/management as per primary team Dose meds/antibiotics for ESRD status. Avoid fleets enema/magnesium based laxatives. surgery, GI following Thanks for allowing me to participate in care of your patient. Will follow patient with you. Please call if any Qs. Dr Solo Valentino Office: [phone] Chief Complaint; abdomen pain better Reason for consult: ESRD management HPI: Pt is a 67 M with hx of ESRD on hemodialysis (MWF) via AVG, last dialysis Sunday @[facility], chronic anemia, hyperphosphatemia, secondary hyperparathyroidism , Diabetes Mellitus, hypertension, CAD s/p CABG, active smoker, hx of partial gastrectomy and peptic ulcer bleed presented with complaints of abdomen pain and found to have SBO. s/p NG tube, pt feels better with pain but uncomfortable due to NG tube denies CP/sob/nausea/vomitting ROS: Denies chest pain, palpitation, shortness of breath, leg swelling now. feels better. NG tube removed. Physical Examination: General Appearance: Comfortable, in no acute respiratory distress, co-operative . well appearing Vitals reviewed and noted as below Head; Atraumatic, normocephalic ENT: no ulcers no thrush. Tongue is midline. Oropharynx: no rash or ulcers. EYES: Pupils are equal, round and reactive to light accommodation. Eye muscles and extraocular movement intact. Sclera is anicteric. Neck; supple no lymphadenopathy, no thyromegaly or bruit Lungs: Normal respiratory rate/effort. Breath sounds bilateral equal and clear Heart: normal rate. s1s2 normal. No rub or gallop. has CABG scar Extremities: no edema. No varicose veins Neurological: Patient is awake alert follows commands, no focal deficit Skin: Warm and dry. Normal turgor. No rash. Palpitation: Normal elasticity for age Abdomen: Abdomen is soft. Bowel sounds +. There is no epigastric abdominal tenderness, no guarding/rigidity or organomegaly. prior surgical scars+ Psych: limited insight. normal affect/mood MSK: no joint tenderness or swelling. Digits and nails normal, no deformity : kidney or bladder not palpable Access: AVG Labs/imaging reviewed. Past medical history, past surgical history, family history, social history, allergy reviewed and noted as below Family Hx: no hx of CKD. Non contributory Objective - Vital Signs/Intake and Output Vital Signs (last 24 hours): Temp Pulse Resp BP Pulse Ox 98.4 F 73 20 157/62 H 96 10/11/17 08:00 10/11/17 12:00 10/11/17 08:00 10/11/17 12:00 10/11/17 08:00 Intake and Output: 10/11/17 10/11/17 06:59 18:59 Intake Total 940 760 Output Total 150 Balance 940 610 - Medications Medications: Current Medications Dextrose/Sodium Chloride (Dextrose 5%/0.45% Ns 1000 Ml) 1,000 mls @ 80 mls/hr IV .[id number] [facility] Last Admin: 10/11/17 06:41 Dose: Not Given Morphine Sulfate (Morphine) 2 mg IVP Q8 PRN PRN Reason: Pain, severe (8-10) Last Admin: 10/11/17 05:37 Dose: 2 mg Nitroglycerin (Nitro-Bid 2% Oint) 1 ea TOP Q6 [facility] Last Admin: 10/11/17 12:18 Dose: 1 ea Ondansetron HCl (Zofran Inj) 4 mg IVP Q8 PRN PRN Reason: Nausea/Vomiting Last Admin: 10/10/17 17:30 Dose: 4 mg Pantoprazole Sodium (Protonix Inj) 40 mg IVP DAILY [facility] Last Admin: 10/11/17 10:07 Dose: 40 mg Sucralfate (Carafate Oral Susp) 1 gm PO TID [facility] - Labs Labs: 10/11/17 11:02 10/11/17 08:18 PT 11.5 SECONDS (9.7-12.2) 10/09/17 09:28 INR 1.1 10/09/17 09:28 APTT 39 SECONDS (21-34) H 10/09/17 09:28
[2017-10-11] MEDS: Sucralfate 1 gm/10 ml Oral Susp UD PO SCH ×2 (13:46→17:15)
--- NOTE | 2017-10-11 19:11 | PN ---
DATE: 10/11/2017 SUBJECTIVE: Today, the patient is alert and awake, seen this morning. The patient denied any abdominal pain and no chest pain, no palpitation. The patient is . PHYSICAL EXAMINATION: VITAL SIGNS: The patient has a blood pressure of 125/76, pulse is 99, respirations 20, temperature 98.9. HEENT: Head is normocephalic. NECK: Supple. LUNGS: Clear. HEART: Regular rate and rhythm. ABDOMEN: Soft. No distention. Positive bowel sounds and no tenderness. EXTREMITIES: There is no edema, but there is an AV fistula on the left arm and the patient had dialysis today. LABORATORY DATA: Lab done today show that WBC is 5, hemoglobin 11.4, hematocrit 34.6, and platelets 168. Chemistry show that the sodium is 138, potassium 4.6, chloride 96, bicarb 29, BUN 39, creatinine 7.7, and alkaline phosphatase is 128. The patient also had today a repeat CAT scan of the abdomen and pelvis that revealed significant decompression of the proximal jejunal loop is appreciated with associated jejunojejunal anastomosis is identified with residual dilatation. There is thickening of the gastrojejunal anastomosis as well as the distal segment is appreciated. The patient had an additional obstruction, now as per the report of the CAT scan, the patient may be able to go to have a clear liquid diet. The case was discussed with Dr. Mohamud, the surgeon. PLAN: The plan is to continue current medications and the case was reviewed with Honey Tamayo, the nurse practitioner. Sd Garcia MD
[2017-10-12] MEDS: Nitroglycerin 2% Ointment Foilpak UD TOP SCH ×4 (00:06→19:12)
[2017-10-12] MEDS: Dextrose 5%/0.45% NS 1,000 ML IV SCH ×2 (07:54→08:15)
--- NOTE | 2017-10-12 08:16 | PN ---
DATE: 10/11/2017 SUBJECTIVE: Today, the patient is alert and awake. Denies any shortness of breath, no abdominal pain, no chest pain, no palpitations, no dizziness. The patient admits of passing gas. PHYSICAL EXAMINATION: VITAL SIGNS: The patient has a blood pressure of 122/62, pulse is 66, respirations 20, temperature 98.1. NECK: Supple. LUNGS: Clear. HEART: Regular rate and rhythm murmur. ABDOMEN: Soft. Mild epigastric tenderness. Positive bowel sounds. EXTREMITIES: There is no edema. There is an AV fistula on the left arm. LABORATORY DATA: The patient had the labs done that showed a WBC of 4.8, hemoglobin 11.3, hematocrit 35, and platelets 225. PLAN: The plan is that the patient would continue with the initial Carafate and the patient was advised to do EGD the morning . Sd Garcia MD
[2017-10-12] MEDS ORDERED: Propofol 10 mg/ml Inj (20 ML) ONE (09:29)
[2017-10-12] MEDS: Sodium Chloride 0.9% 1,000 ML IV SCH ×2 (10:17→10:52)
[2017-10-12] MEDS: Sucralfate 1 gm/10 ml Oral Susp UD PO SCH ×4 (10:17→19:12)
--- NOTE | 2017-10-12 12:24 | CP.PCM.PN ---
Subjective - Date & Time of Evaluation Date of Evaluation: 10/12/17 Time of Evaluation: 12:19 - Subjective Subjective: Nephrology Consultation Note: Assessment: stable SBO, pain abdomen: improved esophageal ulcer and gastritis on EGD 10/12/17 Diabetic chronic Kidney Disease (E11.22) Hypertensive Chronic Kidney Disease (I12.0) End stage renal disease (N18.6) dependence on hemodialysis (Z99.2) (MWF) via AVG Anemia (D64.9), Hyperphosphatemia (E83.39), Secondary Hyperparathyroidism (E21.1 ), HTN (I12.0) CAD s/p CABG, active smoker hx of peptic ulcer disease Plan: Will plan for HD today as ordered per [facility] schedule, once on diet start Nephrovite 1 tab/day last HB 11.7 hence no HARINDER with HD at present maintain hemodynamics stable, BP controlled continue with phos binders once on diet, can hold for now Glycemic control Further work up/management as per primary team Dose meds/antibiotics for ESRD status. Avoid fleets enema/magnesium based laxatives. surgery, GI following pt on liquid diet, d/c IVF continue with PPI Thanks for allowing me to participate in care of your patient. Will follow patient with you. Please call if any Qs. Dr Solo Valentino Office: [phone] Chief Complaint; abdomen pain better Reason for consult: ESRD management HPI: Pt is a 67 M with hx of ESRD on hemodialysis (MWF) via AVG, last dialysis Sunday @[facility], chronic anemia, hyperphosphatemia, secondary hyperparathyroidism , Diabetes Mellitus, hypertension, CAD s/p CABG, active smoker, hx of partial gastrectomy and peptic ulcer bleed presented with complaints of abdomen pain and found to have SBO. s/p NG tube, pt feels better with pain but uncomfortable due to NG tube denies CP/sob/nausea/vomitting ROS: Denies chest pain, palpitation, shortness of breath, leg swelling now. feels better. NG tube removed. Physical Examination: General Appearance: Comfortable, in no acute respiratory distress, co-operative . well appearing Vitals reviewed and noted as below Head; Atraumatic, normocephalic ENT: no ulcers no thrush. Tongue is midline. Oropharynx: no rash or ulcers. EYES: Pupils are equal, round and reactive to light accommodation. Eye muscles and extraocular movement intact. Sclera is anicteric. Neck; supple no lymphadenopathy, no thyromegaly or bruit Lungs: Normal respiratory rate/effort. Breath sounds bilateral equal and clear Heart: normal rate. s1s2 normal. No rub or gallop. has CABG scar Extremities: no edema. No varicose veins Neurological: Patient is awake alert follows commands, no focal deficit Skin: Warm and dry. Normal turgor. No rash. Palpitation: Normal elasticity for age Abdomen: Abdomen is soft. Bowel sounds +. There is no epigastric abdominal tenderness, no guarding/rigidity or organomegaly. prior surgical scars+ Psych: limited insight. normal affect/mood MSK: no joint tenderness or swelling. Digits and nails normal, no deformity : kidney or bladder not palpable Access: AVG Labs/imaging reviewed. Past medical history, past surgical history, family history, social history, allergy reviewed and noted as below Family Hx: no hx of CKD. Non contributory Objective - Vital Signs/Intake and Output Vital Signs (last 24 hours): Temp Pulse Resp BP Pulse Ox 97.5 F L 68 20 112/54 L 100 10/12/17 10:05 10/12/17 10:35 10/12/17 10:35 10/12/17 10:35 10/12/17 10:35 Intake and Output: 10/12/17 10/12/17 06:59 18:59 Intake Total 1440 125 Balance 1440 125 - Medications Medications: Current Medications Dextrose/Sodium Chloride (Dextrose 5%/0.45% Ns 1000 Ml) 1,000 mls @ 80 mls/hr IV .[id number] [facility] Last Admin: 10/12/17 08:15 Dose: 80 mls/hr Sodium Chloride (Sodium Chloride 0.9%) 1,000 mls @ 10 mls/hr IV .Q24H [facility] Last Admin: 10/12/17 10:52 Dose: 10 mls/hr Metoclopramide HCl (Reglan) 5 mg IVP Q8H [facility] Last Admin: 10/12/17 10:55 Dose: 5 mg Morphine Sulfate (Morphine) 2 mg IVP Q8 PRN PRN Reason: Pain, severe (8-10) Last Admin: 10/11/17 19:25 Dose: 2 mg Nitroglycerin (Nitro-Bid 2% Oint) 1 ea TOP Q6 [facility] Last Admin: 10/12/17 11:13 Dose: Not Given Ondansetron HCl (Zofran Inj) 4 mg IVP Q8 PRN PRN Reason: Nausea/Vomiting Last Admin: 10/10/17 17:30 Dose: 4 mg Pantoprazole Sodium (Protonix Inj) 40 mg IVP DAILY [facility] Last Admin: 10/12/17 10:55 Dose: 40 mg Sucralfate (Carafate Oral Susp) 1 gm PO TID [facility] Last Admin: 10/12/17 10:55 Dose: 1 gm - Labs Labs: 10/11/17 11:02 10/11/17 08:18 PT 11.5 SECONDS (9.7-12.2) 10/09/17 09:28 INR 1.1 10/09/17 09:28 APTT 39 SECONDS (21-34) H 10/09/17 09:28
--- NOTE | 2017-10-12 17:24 | CP.PCM.PN ---
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 Garcia abdominal pain improved , tolerating liquid diet , denies any N/V/ s/p EGD - see full report for details d/w Dr. Urrutia, ok for out patient endoscopy/ colonoscopy - as per Dr. Garcia, pt cleared for discharge home today and f/u wiht his office in [address] Urrutia number given to patient to f/u office for schedule for GI procedure CM aware pt needs to resume HD at his HD center on sunday Objective - Vital Signs/Intake and Output Vital Signs (last 24 hours): Temp Pulse Resp BP Pulse Ox 97.7 F 73 20 160/75 H 99 10/12/17 14:25 10/12/17 14:25 10/12/17 14:25 10/12/17 16:25 10/12/17 14:25 Intake and Output: 10/12/17 10/12/17 06:59 18:59 Intake Total 1440 1105 Balance 1440 1105 - Medications Medications: Current Medications Sodium Chloride (Sodium Chloride 0.9%) 1,000 mls @ 10 mls/hr IV .Q24H [facility] Last Admin: 10/12/17 10:52 Dose: 10 mls/hr Metoclopramide HCl (Reglan) 5 mg IVP Q8H [facility] Last Admin: 10/12/17 10:55 Dose: 5 mg Morphine Sulfate (Morphine) 2 mg IVP Q8 PRN PRN Reason: Pain, severe (8-10) Last Admin: 10/11/17 19:25 Dose: 2 mg Nitroglycerin (Nitro-Bid 2% Oint) 1 ea TOP Q6 [facility] Last Admin: 10/12/17 11:13 Dose: Not Given Ondansetron HCl (Zofran Inj) 4 mg IVP Q8 PRN PRN Reason: Nausea/Vomiting Last Admin: 10/10/17 17:30 Dose: 4 mg Pantoprazole Sodium (Protonix Inj) 40 mg IVP DAILY [facility] Last Admin: 10/12/17 10:55 Dose: 40 mg Sucralfate (Carafate Oral Susp) 1 gm PO TID [facility] Last Admin: 10/12/17 13:30 Dose: 1 gm - Labs Labs: 10/11/17 11:02 10/11/17 08:18 PT 11.5 SECONDS (9.7-12.2) 10/09/17 09:28 INR 1.1 10/09/17 09:28 APTT 39 SECONDS (21-34) H 10/09/17 09:28
[2017-10-12 23:25] VITALS: RESP 20
[2017-10-13] MEDS: Nitroglycerin 2% Ointment Foilpak UD TOP SCH ×2 (00:16→05:47)
--- NOTE | 2017-10-13 03:24 | PN ---
DATE: 10/12/2017 SUBJECTIVE: Today, the patient was seen earlier with the nurse practitioner, Gillian Diaz. The patient was feeling better, denied any chest pain or palpitation. No shortness of breath. The patient passed gas and complaining of feeling hungry. PHYSICAL EXAMINATION: VITAL SIGNS: The patient has a blood pressure of 116/65, pulse 71, respirations 18, temperature 97.2. NECK: Supple. LUNGS: Clear. HEART: Regular rate and rhythm. Positive murmur. ABDOMEN: Soft. Nontender. No palpable mass. EXTREMITIES: There is no edema. There is an AV fistula in the left arm. The patient's blood work has shown a WBC of 4.6, hemoglobin 11.7, hematocrit is . The patient today to have dialysis. Also, the patient had an endoscopy done today. The endoscopy was done by Dr. Urrutia. The patient was on clear liquid diet, and now the patient will be on advanced diet. The result from endoscopy has shown that there is a nonsevere esophagitis with no bleeding, a superficial esophageal ulcer with no bleeding and no stigma of recent bleeding erythematous mucosa without bleeding, and a simple localized nonbleeding erosion was found in the gastric body and evidence of Billroth I gastrojejunostomy was found and a gastric polyp was found. The plan is that the patient will have a colonoscopy as an outpatient. The case was discussed with Gillian Diaz, the nurse practitioner. However, if the patient has to stay in the hospital, he will be under supervision of Dr. Hebert. Dr. Hebert will be covering for me from today till 10/22/2017. Sd Garcia MD
[2017-10-13 07:03] LABS: BASO % 0.8 % (0.0-2.0); EOS # 0.3 K/uL (0.0-0.7); EOS % 4.9 % (0.0-4.0); HEMOGLOBIN 11.2 g/dL (12.0-18.0); LYMPH # 0.8 K/uL (1.0-4.3); LYMPH % 13.3 % (20.0-40.0); MEAN CELL VOLUME 90.9 fL (80.0-94.0); MEAN CORPUSCULAR HEMOGLOBIN 31.1 pg (27.0-31.0); MEAN CORPUSCULAR HGB CONC 34.2 g/dL (33.0-37.0); MEAN PLATELET VOLUME 8.5 fL (7.2-11.7); MONO # 0.7 K/uL (0.0-0.8); MONO % 11.3 % (0.0-10.0); NEUT # 4.1 K/uL (1.8-7.0); NEUT % 69.7 % (50.0-75.0); RBC 3.59 Mil/uL (4.40-5.90); RED CELL DISTRIBUTION WIDTH 15.7 % (11.5-14.5); WHITE BLOOD COUNT 5.9 K/uL (4.8-10.8)
[2017-10-13 08:01] LABS: ALB/GLOB RATIO 1.3 (1.0-2.1); ALBUMIN 3.7 g/dL (3.5-5.0); CALCIUM 9.3 mg/dl (8.6-10.4)
[2017-10-13 08:12] VITALS: BP 116/55; PULSE 91; TEMP 98; O2SAT 96
[2017-10-13] MEDS: Sodium Chloride 0.9% 1,000 ML IV SCH (09:37)
[2017-10-13] MEDS: Sucralfate 1 gm/10 ml Oral Susp UD PO SCH (09:43)
--- NOTE | 2017-10-13 11:58 | PN ---
DATE: 10/13/2017 LOCATION: 364, bed B. SUBJECTIVE: This is a 67-year-old male post upper endoscopy with biopsy yesterday, seen and examined in rounds. He had dialysis yesterday without any significant clinical changes or main complaint but with generalized weakness and malaise. The entire chart is reviewed including but not limited to the most recent lab and radiology study results, current and the previous medication list, current and the previous medical events. The patient tolerated oral intake of advanced diet without reported nausea or vomiting. Today's lab is still pending; however, the latest blood glucose level is 153. PHYSICAL EXAMINATION: GENERAL: A 67-year-old male, awake, alert, and oriented. VITAL SIGNS: Afebrile with stable vital signs with respiratory rate 18-20, blood pressure 122/60, heart rate 70. HEENT: Showed pale, dry oral mucous membranes. Nonicteric sclerae. LUNGS: A few scattered crepitation. Decreased air entry at bases. HEART: Positive S1 and S2. ABDOMEN: Soft with mild generalized tenderness. No mass or organomegaly. No rebound tenderness or guarding. EXTREMITIES: With mild lower extremity edematous changes. No clubbing or cyanosis. NEUROLOGIC: No reported new neurological deficits, sensory or motor. IMPRESSION: 1. Gastroparesis with status post Billroth I surgery diagnosed by endoscopy. 2. Poorly controlled diabetes mellitus. 3. Abnormal CAT scan of the abdomen and pelvis. 4. Known history of end-stage renal disease, on hemodialysis. 5. Known history of hypertension. 6. Coronary artery disease, status post coronary artery bypass graft. 7. Status post cholecystectomy. 8. Anemia by recent history. SUGGESTIONS: 1. Agree with your plan. 2. The patient will need repeat upper endoscopy due to the retained food/undigested material. 3. Colonoscopy when the patient is more stable clinically. Amada Sanders MD
--- NOTE | 2017-10-31 18:53 | DS ---
Copied To: Sd Garcia MD Attending MD: Sd Garcia MD This patient is a 67-year-old male who came to the emergency room, was complaining of intermittent abdominal pain starting two days before. The pain was progressively worsening, so the patient came to the emergency room and was evaluated. The patient had a CAT scan of the abdomen that was positive for small intestinal obstruction, particularly prominent central small bowel loop. So, the patient had a consult with Dr. Mohamud who is a surgeon and also with Dr. Amada Sanders who is a GI. The patient also has history of end-stage renal disease and had a consult with Dr. Solo Valentino associated with Dr. Dawn. The patient has different tests done, including the patient had endoscopy done that revealed the patient had an esophageal ulcer, gastritis, esophagitis, and retained gastric content, but the patient was kept under observation surgically. No surgery was scheduled due to later the patient able to pass the gas. The abdominal pain has completely subsided and the patient was able to tolerate the regular food without vomiting, and at this point, the patient having a regular dialysis, will be discharged home but with possibility of a colonoscopy as an outpatient. The case was discussed with Gillian Diaz, the nurse practitioner and Dr. Sanders was informed of the discharge where as the patient was cleared by Surgery that is Dr. Mohamud. Sd Garcia MD
== END 2017-10-13 11:45 | disposition home or self-care (01) | DRG 388 ==
LOC: C.ER 08:14 → C.9E 14:58 → C.3T 16:06
PROVIDERS: ADMIT Specialist; ATTEND Specialist
PROC: 5A1D70Z Performance of Urinary Filtration, Intermittent, Less than 6 Hours Per Day (ICD-10-PCS; 2017-10-12)
PROC: 0DJ08ZZ Inspection of Upper Intestinal Tract, Via Natural or Artificial Opening Endoscopic (ICD-10-PCS; principal; 2017-10-12 09:49)
DX: K56.609 Unspecified intestinal obstruction, unspecified as to partial versus complete obstruction (principal); K22.10 Ulcer of esophagus without bleeding; N18.6 End stage renal disease; I13.2 Hypertensive heart and chronic kidney disease with heart failure and with stage 5 chronic kidney disease, or end stage renal disease; N25.81 Secondary hyperparathyroidism of renal origin; D64.9 Anemia, unspecified; E11.22 Type 2 diabetes mellitus with diabetic chronic kidney disease; E11.43 Type 2 diabetes mellitus with diabetic autonomic (poly)neuropathy; E11.65 Type 2 diabetes mellitus with hyperglycemia; E78.00 Pure hypercholesterolemia, unspecified; E78.5 Hyperlipidemia, unspecified; K29.70 Gastritis, unspecified, without bleeding; I50.9 Heart failure, unspecified; K31.84 Gastroparesis; I25.10 Atherosclerotic heart disease of native coronary artery without angina pectoris; E83.39 Other disorders of phosphorus metabolism; F10.10 Alcohol abuse, uncomplicated; F17.210 Nicotine dependence, cigarettes, uncomplicated; Z87.11 Personal history of peptic ulcer disease; Z99.2 Dependence on renal dialysis; Z90.49 Acquired absence of other specified parts of digestive tract; Z87.19 Personal history of other diseases of the digestive system; Z95.1 Presence of aortocoronary bypass graft; Z79.4 Long term (current) use of insulin; Z90.3 Acquired absence of stomach [part of]

== ENCOUNTER 2017-10-29 17:05 | Inpatient (IN) | payer MEDICARE, MEDICAID ==
[2017-10-29 17:06] VITALS: BMI 30.9
--- NOTE | 2017-10-29 19:45 | C.PDOC ---
Time Seen by Provider: 10/29/17 19:35 Chief Complaint (Nursing): Abdominal Pain Past Medical History Vital Signs: Last Vital Signs Temp 98.5 F 10/29/17 17:31 Pulse 95 H 10/29/17 17:31 Resp 18 10/29/17 17:31 BP 137/63 10/29/17 17:31 Pulse Ox 98 10/29/17 17:31 - Medical History PMH: CAD, CHF, Diabetes, Gastrointestinal Ulcer, HTN, Hypercholesterolemia, Hyperlipidemia, End Stage Renal Disease, Chronic Kidney Disease Surgical History: CABG, Cholecystectomy - [facility] Procedures (10/09/17) EXCISION OF DESCENDING COLON, ENDO, DIAGN (02/26/17) EXCISION OF STOMACH, ENDO, DIAGN (02/26/17) FLUOROSCOPY OF LEFT HEART USING LOW OSMOLAR CONTRAST (07/29/16) FLUOROSCOPY OF MULT COR ART USING L OSM CONTRAST (07/29/16) FLUOROSCOPY OF SING COR A GRAFT USING L OSM CONTRAST (07/29/16) HEMODIALYSIS (01/02/13) INSPECTION OF UPPER INTESTINAL TRACT, ENDO (10/09/17) MEASURE CARDIAC SAMPL & PRESSURE, BILATERAL, PERC (08/27/15) MEASURE OF CARDIAC SAMPL & PRESSURE, L HEART, PERC APPROACH (07/29/16) PACKED CELL TRANSFUSION (01/02/13) PERFORMANCE OF URINARY FILTRATION, MULTIPLE (08/27/15) PERFORMANCE OF URINARY FILTRATION, SINGLE (07/29/16) PLAIN RADIOGRAPHY OF MULT COR A GRAFT USING OTH CONTRAST (08/27/15) PLAIN RADIOGRAPHY OF MULT COR ART USING OTH CONTRAST (08/27/15) PLAIN RADIOGRAPHY OF RIGHT AND LEFT HEART USING OTH CONTRAST (08/27/15) TRANSFUSE NONAUT RED BLOOD CELLS IN PERIPH VEIN, PERC (02/26/17) VENOUS CATHETERIZATION FOR RENAL DIALYSIS (01/02/13) Family History: States: Unknown Family Hx - Social History Hx Tobacco Use: Yes Hx Alcohol Use: No Hx Substance Use: No - Immunization History Hx Tetanus Toxoid Vaccination: No Hx Influenza Vaccination: No Hx Pneumococcal Vaccination: No ED Course And Treatment O2 Sat by Pulse Oximetry: 98 Disposition - Disposition
--- NOTE | 2017-10-29 19:50 | C.PDOC ---
History Of Present Illness 67 y/o male, with Hx of gastrointestinal ulcers, presents to the ER complaining of epigastric pain that began four days ago. Pain is nonradiating, constant, associated with general weakness, not associated with nausea, vomiting, constipation or diarrhea. He states he is compliant with his medication at home but denies taking any pain medication for the epigastric pain. The patient reports normal BM. Saw Dr. Garcia in office today and instructed to come to ED for further evaluation. Time Seen by Provider: 10/29/17 19:35 Chief Complaint (Nursing): Abdominal Pain History Per: Patient History/Exam Limitations: no limitations Onset/Duration Of Symptoms: Days Current Symptoms Are (Timing): Still Present Location Of Pain/Discomfort: Epigastric Quality Of Discomfort: "Pain" Associated Symptoms: denies: Nausea, Vomiting, Diarrhea, Constipation Recent travel outside of the [place]: No Past Medical History Reviewed: Historical Data, Nursing Documentation, Vital Signs Vital Signs: Last Vital Signs Temp 98.5 F 10/29/17 17:31 Pulse 78 10/29/17 21:26 Resp 16 10/29/17 21:26 BP 138/49 L 10/29/17 21:26 Pulse Ox 98 10/29/17 22:22 - Medical History PMH: CAD, CHF, Diabetes, Gastrointestinal Ulcer, HTN, Hypercholesterolemia, Hyperlipidemia, End Stage Renal Disease, Chronic Kidney Disease Surgical History: CABG, Cholecystectomy Other Surgeries: endoscopy and sternotomy - [facility] Procedures (10/09/17) EXCISION OF DESCENDING COLON, ENDO, DIAGN (02/26/17) EXCISION OF STOMACH, ENDO, DIAGN (02/26/17) FLUOROSCOPY OF LEFT HEART USING LOW OSMOLAR CONTRAST (07/29/16) FLUOROSCOPY OF MULT COR ART USING L OSM CONTRAST (07/29/16) FLUOROSCOPY OF SING COR A GRAFT USING L OSM CONTRAST (07/29/16) HEMODIALYSIS (01/02/13) INSPECTION OF UPPER INTESTINAL TRACT, ENDO (10/09/17) MEASURE CARDIAC SAMPL & PRESSURE, BILATERAL, PERC (08/27/15) MEASURE OF CARDIAC SAMPL & PRESSURE, L HEART, PERC APPROACH (07/29/16) PACKED CELL TRANSFUSION (01/02/13) PERFORMANCE OF URINARY FILTRATION, MULTIPLE (08/27/15) PERFORMANCE OF URINARY FILTRATION, SINGLE (07/29/16) PLAIN RADIOGRAPHY OF MULT COR A GRAFT USING OTH CONTRAST (08/27/15) PLAIN RADIOGRAPHY OF MULT COR ART USING OTH CONTRAST (08/27/15) PLAIN RADIOGRAPHY OF RIGHT AND LEFT HEART USING OTH CONTRAST (08/27/15) TRANSFUSE NONAUT RED BLOOD CELLS IN PERIPH VEIN, PERC (02/26/17) VENOUS CATHETERIZATION FOR RENAL DIALYSIS (01/02/13) Family History: States: Unknown Family Hx - Social History Hx Tobacco Use: Yes Hx Alcohol Use: No Hx Substance Use: No - Immunization History Hx Tetanus Toxoid Vaccination: No Hx Influenza Vaccination: No Hx Pneumococcal Vaccination: No Review Of Systems Except As Marked, All Systems Reviewed And Found Negative. Constitutional: Negative for: Fever Gastrointestinal: Positive for: Other (epigastric pain ). Negative for: Nausea , Vomiting, Diarrhea, Constipation Physical Exam - Physical Exam Additional Physical Exam Comments: Constitutional: No acute distress. Head: Normocephalic. Atraumatic. Eyes: PERRL. ENT: Moist mucous membranes. Neck: Supple. Cardiovascular: Regular rate. Radial pulse 2+ bilaterally. Chest: No tenderness. Respiratory: Clear to auscultation bilaterally. GI: Epigastric tenderness. (+) guarding Back: No CVA tenderness. Musculoskeletal: No tenderness or swelling of extremities. Skin: No rash. Midline sternotomy scar, cholecystectomy scar, midline laparatomy scar. Neurologic: Alert, no focal deficit. ED Course And Treatment - Laboratory Results Result Diagrams: 10/29/17 19:53 10/29/17 19:53 O2 Sat by Pulse Oximetry: 98 (RA) Pulse Ox Interpretation: Normal Medical Decision Making Medical Decision Making: Impression: 67 y/o male with epigastric pain/ tenderness Plan: --Abd/ Pelvis CT with contrast --CMP --Drug Screen --Lipase Stat --CBC --UA MPRESSION: There is an air-fluid level identified in the left upper quadrant bowel adjacent to the gastrojejunostomy anastomosis is probably a loop of small bowel. Significance of this is uncertain. Similar finding is described on prior study and comparison would be advantageous. Dr. Garcia admits patient for new onset anemia which could be causing patient' s general weakness and requires further evaluation and also need for dialysis as patient did not get dialysis performed today and is uremic. Disposition - Disposition Disposition: HOSPITALIZED Disposition Time: 22:22 Condition: GUARDED - Clinical Impression Clinical Impression: Anemia, Abdominal pain, Uremia - PA / SPEEDER HAND / Resident Statement MD/DO has reviewed & agrees with the documentation as recorded. - Scribe Statement The provider has reviewed the documentation as recorded by the Scribe (Samina Morgan) Provider Attestation: All medical record entries made by the Scribe were at my direction and personally dictated by me. I have reviewed the chart and agree that the record accurately reflects my personal performance of the history, physical exam, medical decision making, and the department course for this patient. I have also personally directed, reviewed, and agree with the discharge instructions and disposition.
[2017-10-29 19:57] LABS: BASO % 0.8 % (0.0-2.0); EOS # 0.3 K/uL (0.0-0.7); EOS % 5.1 % (0.0-4.0); HEMOGLOBIN 9.4 g/dL (12.0-18.0); LYMPH # 0.9 K/uL (1.0-4.3); MEAN CELL VOLUME 91.6 fL (80.0-94.0); MEAN CORPUSCULAR HEMOGLOBIN 30.1 pg (27.0-31.0); MEAN CORPUSCULAR HGB CONC 32.8 g/dL (33.0-37.0); MEAN PLATELET VOLUME 8.6 fL (7.2-11.7); MONO # 0.6 K/uL (0.0-0.8); MONO % 9.9 % (0.0-10.0); NEUT # 4.3 K/uL (1.8-7.0); NEUT % 69.2 % (50.0-75.0); RBC 3.12 Mil/uL (4.40-5.90); RED CELL DISTRIBUTION WIDTH 16.8 % (11.5-14.5); WHITE BLOOD COUNT 6.3 K/uL (4.8-10.8)
[2017-10-29 20:01] LABS: BARBITURATES, UR NEGATIVE (NEGATIVE); BENZODIAZEPINES, UR NEGATIVE (NEGATIVE); OPIATES, UR NEGATIVE (NEGATIVE); PHENCYCLIDINE, UR NEGATIVE (NEGATIVE)
[2017-10-29 20:15] LABS: ALB/GLOB RATIO 1.3 (1.0-2.1); ALBUMIN 3.9 g/dL (3.5-5.0)
[2017-10-29 20:19] LABS: SQUAMOUS EPITHIAL 2 /hpf (0-5); URINE BACTERIA RARE (<OCC); URINE BILIRUBIN NEGATIVE (NEGATIVE); URINE BLOOD NEGATIVE (NEGATIVE); URINE CLARITY Clear (Clear); URINE COLOR Yellow (YELLOW); URINE GLUCOSE (UA) 3+ mg/dL (Normal); URINE LEUKOCYTE ESTERASE NEG Leu/uL (Negative); URINE PROTEIN 2+ mg/dL (NEGATIVE); URINE UROBILINOGEN NORMAL mg/dL (0.2-1.0)
[2017-10-29] MEDS ORDERED: Morphine 4 MG/ML VIAL ONE (20:40)
[2017-10-29] MEDS ORDERED: Metoprolol 1 mg/ml Inj IVP ONE (23:34)
[2017-10-29] MEDS ORDERED: Albuterol 0.083% Inhal Sol (2.5 mg/3 mL) UD INH PRN (23:34)
[2017-10-30] MEDS: Oxycodone/Acetaminophen 5/325 mg Tab PO PRN ×3 (00:49→17:32)
[2017-10-30] MEDS: Pantoprazole 40 mg EC Tab PO SCH (08:01)
[2017-10-30] MEDS: Metoprolol Succinate 25 mg XL Tab PO SCH (09:37)
[2017-10-30] MEDS: Sucralfate 1 gm/10 ml Oral Susp UD PO SCH ×3 (09:38→17:29)
--- NOTE | 2017-10-30 11:03 | CP.PCM.CON ---
History of Present Illness - History of Present Illness History of Present Illness: Nephrology Consultation Note: Assessment: stable pain abdomen, missed HD esophageal ulcer and gastritis on EGD 10/12/17, SBO Diabetic chronic Kidney Disease (E11.22) Hypertensive Chronic Kidney Disease (I12.0) End stage renal disease (N18.6) dependence on hemodialysis (Z99.2) (MWF) via [facility] Anemia (D64.9), Hyperphosphatemia (E83.39), Secondary Hyperparathyroidism (E21.1 ), HTN (I12.0) CAD s/p CABG, active smoker hx of peptic ulcer disease Plan: Will plan for HD today as ordered. continue with Nephrovite 1 tab/day last HB 9.4 hence added HARINDER with HD maintain hemodynamics stable, continue with BP meds continue with phos binders as phoslo once stable on diet Glycemic control Further work up/management as per primary team Dose meds/antibiotics for ESRD status. Avoid fleets enema/magnesium based laxatives. GI following continue with PPI Thanks for allowing me to participate in care of your patient. Will follow patient with you. Please call if any Qs. Dr Solo Valentino Office: [phone] Chief Complaint; abdomen pain Reason for consult: ESRD management HPI: Pt is a 67 M with hx of ESRD on hemodialysis (MWF) via [facility] but non- compliant, last dialysis last week @[facility], chronic anemia, hyperphosphatemia, secondary hyperparathyroidism, Diabetes Mellitus, hypertension, CAD s/p CABG, active smoker, hx of partial gastrectomy, SBO and peptic ulcer bleed presented with complaints of worsening abdomen pain and admitted for further management renal consult for ESRD management denies CP/sob/nausea/vomiting ROS: Denies chest pain, palpitation, shortness of breath, leg swelling now. c/o pain abdomer, bit better Physical Examination: General Appearance: Comfortable, in no acute respiratory distress, co-operative Vitals reviewed and noted as below Head; Atraumatic, normocephalic ENT: no ulcers no thrush. Tongue is midline. Oropharynx: no rash or ulcers. EYES: Pupils are equal, round and reactive to light accommodation. Eye muscles and extraocular movement intact. Sclera is anicteric. Neck; supple no lymphadenopathy, no thyromegaly or bruit Lungs: Normal respiratory rate/effort. Breath sounds bilateral equal and clear Heart: normal rate. s1s2 normal. No rub or gallop. has CABG scar Extremities: no edema. No varicose veins Neurological: Patient is awake alert follows commands, no focal deficit Skin: Warm and dry. Normal turgor. No rash. Palpitation: Normal elasticity for age Abdomen: Abdomen is soft. Bowel sounds +. There is epigastric abdominal tenderness, no guarding/rigidity or organomegaly. prior surgical scars+ Psych: limited insight. normal affect/mood MSK: no joint tenderness or swelling. Digits and nails normal, no deformity : kidney or bladder not palpable Access: AVG Labs/imaging reviewed. Past medical history, past surgical history, family history, social history, allergy reviewed and noted as below Family Hx: no hx of CKD. Non contributory Past Patient History - Past Medical History & Family History Past Medical History?: Yes - Past Social History Smoking Status: Current Some Days Smoker - CARDIAC Hx Cardiac Disorders: Yes Hx Congestive Heart Failure: Yes Hx Hypercholesterolemia: Yes Hx Hypertension: Yes - PULMONARY Hx Respiratory Disorders: No - NEUROLOGICAL Hx Neurological Disorder: No - HEENT Hx HEENT Problems: No - RENAL Hx Chronic Kidney Disease: Yes Hx Dialysis: Yes Type of Dialysis Access: Left arm HD access Date of Last Dialysis Treatment: 10/26/17 Hx Kidney Stones: No Hx Neurogenic Bladder: No Hx Pyelonephritis: No Hx Renal (Kidney) Cancer: No Hx Renal Failure: Yes - ENDOCRINE/METABOLIC Hx Endocrine Disorders: Yes Hx Diabetes Mellitus Type 2: Yes - HEMATOLOGICAL/ONCOLOGICAL Hx Blood Disorders: Yes Hx Anemia: Yes - INTEGUMENTARY Hx Dermatological Problems: No - MUSCULOSKELETAL/RHEUMATOLOGICAL Hx Musculoskeletal Disorders: No Hx Falls: No - GASTROINTESTINAL Hx Gastrointestinal Disorders: Yes - GENITOURINARY/GYNECOLOGICAL Hx Genitourinary Disorders: No - PSYCHIATRIC Hx Psychophysiologic Disorder: No Hx Substance Use: No - SURGICAL HISTORY Hx Surgeries: Yes Hx Cholecystectomy: Yes Hx Coronary Artery Bypass Graft: Yes - ANESTHESIA Hx Anesthesia: Yes Hx Anesthesia Reactions: No Hx Malignant Hyperthermia: No Has any member of the family had a problem w/ anesthesia?: No Meds Allergies/Adverse Reactions: Allergies Allergy/AdvReac Type Severity Reaction Status Date / Time No Known Allergies Allergy Verified 10/29/17 17:34 - Medications Medications: Current Medications Albuterol Sulfate (Albuterol 0.083% Inhal Jacuqeline (2.5 Mg/3 Ml) Ud) 2.5 mg INH RQ6 PRN PRN Reason: Shortness of Breath Aspirin (Aspirin Chewable) 81 mg PO DAILY [facility] Last Admin: 10/30/17 09:37 Dose: 81 mg Clopidogrel Bisulfate (Plavix) 75 mg PO DAILY [facility] Last Admin: 10/30/17 09:38 Dose: 75 mg Epoetin Adam (Procrit) 10,000 unit IV TTS [facility] Glimepiride (Amaryl) 2 mg PO DAILY [facility] Last Admin: 10/30/17 09:37 Dose: 2 mg Heparin Sodium (Porcine) (Heparin) 5,000 units SC Q12H [facility] Heparin Sodium (Porcine) (Heparin) 2,000 units IVP TTS [facility] Metoprolol Succinate (Toprol Xl) 25 mg PO DAILY [facility] Last Admin: 10/30/17 09:37 Dose: 25 mg Montelukast Sodium (Singulair) 10 mg PO HS [facility] Oxycodone/Acetaminophen (Percocet 5/325 Mg Tab) 2 tab PO Q6H PRN PRN Reason: Pain, severe (8-10) Stop: 11/01/17 23:35 Last Admin: 10/30/17 08:44 Dose: 2 tab Pantoprazole Sodium (Protonix Ec Tab) 40 mg PO DAILY [facility] Last Admin: 10/30/17 08:01 Dose: 40 mg Pregabalin (Lyrica) 25 mg PO BID [facility] Last Admin: 10/30/17 09:38 Dose: 25 mg Rosuvastatin Calcium (Crestor) 5 mg PO HS [facility] Sucralfate (Carafate Oral Susp) 1 gm PO TID [facility] Last Admin: 10/30/17 09:38 Dose: 1 gm Trazodone HCl (Desyrel) 100 mg PO HS [facility] Vitamin B Complex/Vit C/Folic Acid (Nephro-Benjamin) 1 tab PO 0800 [facility] Results - Vital Signs Recent Vital Signs: Last Vital Signs Temp 98.3 F 10/30/17 09:34 Pulse 85 10/30/17 09:34 Resp 20 10/30/17 09:34 BP 165/82 H 10/30/17 09:34 Pulse Ox 99 10/30/17 09:34 - Labs Result Diagrams: 10/29/17 19:53 10/29/17 19:53 Labs: Laboratory Results - last 24 hr 10/29/17 10/29/17 10/29/17 19:41 19:41 19:53 WBC 6.3 RBC 3.12 L Hgb 9.4 L Hct 28.6 L MCV 91.6 MCH 30.1 MCHC 32.8 L RDW 16.8 H Plt Count 273 MPV 8.6 Neut % (Auto) 69.2 Lymph % (Auto) 15.0 L [place] % (Auto) 9.9 Eos % (Auto) 5.1 H Baso % (Auto) 0.8 Neut # (Auto) 4.3 Lymph # (Auto) 0.9 L [place] # (Auto) 0.6 Eos # (Auto) 0.3 Baso # (Auto) 0.0 Sodium Potassium Chloride Carbon Dioxide Anion Gap BUN Creatinine Est GFR ( Amer) Est GFR (Non-Af Amer) POC Glucose (mg/dL) Random Glucose Calcium Total Bilirubin AST ALT Alkaline Phosphatase Total Protein Albumin Globulin Albumin/Globulin Ratio Lipase Urine Color Yellow Urine Clarity Clear Urine pH 8.0 Ur Specific [place] 1.009 Urine Protein 2+ H Urine Glucose (UA) 3+ H Urine Ketones Negative Urine Blood Negative Urine Nitrate Negative Urine Bilirubin Negative Urine Urobilinogen Normal Ur Leukocyte Esterase Neg Urine WBC (Auto) 1 Ur Squamous Epith Cells 2 Urine Bacteria Rare Urine Opiates Screen Negative Urine Methadone Screen Negative Ur Barbiturates Screen Negative Ur Phencyclidine Scrn Negative Ur Amphetamines Screen Negative U Benzodiazepines Scrn Negative U Oth Cocaine Metabols Negative U Cannabinoids Screen Negative 10/29/17 10/30/17 19:53 07:29 WBC RBC Hgb Hct MCV MCH MCHC RDW Plt Count MPV Neut % (Auto) Lymph % (Auto) [place] % (Auto) Eos % (Auto) Baso % (Auto) Neut # (Auto) Lymph # (Auto) [place] # (Auto) Eos # (Auto) Baso # (Auto) Sodium 140 Potassium 4.9 Chloride 95 L Carbon Dioxide 27 Anion Gap 23 H BUN 62 H Creatinine 9.7 H* D Est GFR ( Amer) 7 Est GFR (Non-Af Amer) 5 POC Glucose (mg/dL) 79 Random Glucose 176 H Calcium 9.0 Total Bilirubin 0.3 AST 18 ALT 16 L D Alkaline Phosphatase 148 H Total Protein 6.8 Albumin 3.9 Globulin 3.0 Albumin/Globulin Ratio 1.3 Lipase 86 Urine Color Urine Clarity Urine pH Ur Specific [place] Urine Protein Urine Glucose (UA) Urine Ketones Urine Blood Urine Nitrate Urine Bilirubin Urine Urobilinogen Ur Leukocyte Esterase Urine WBC (Auto) Ur Squamous Epith Cells Urine Bacteria Urine Opiates Screen Urine Methadone Screen Ur Barbiturates Screen Ur Phencyclidine Scrn Ur Amphetamines Screen U Benzodiazepines Scrn U Oth Cocaine Metabols U Cannabinoids Screen
--- NOTE | 2017-10-30 12:14 | CT ---
Date of service: 10/29/2017 PROCEDURE: CT Abdomen and Pelvis without intravenous contrast HISTORY: abd pain, r/o SBO COMPARISON: Comparison is made with 10/10/2017 TECHNIQUE: Axial and reformatted coronal and sagittal CT images of the abdomen and pelvis were obtained without IV or oral contrast administration.. Contrast dose: 0 Radiation dose: Total exam DLP = 432.28 mGy-cm. This CT exam was performed using one or more of the following dose reduction techniques: Automated exposure control, adjustment of the mA and/or kV according to patient size, and/or use of iterative reconstruction technique. FINDINGS: LOWER THORAX: Again seen is focal opacity at the peripheral left lower lung likely represents scar tissue. No evidence of pleural effusion. The heart is moderately enlarged. Post cardiac surgery changes are noted. LIVER: This suspicious for punctate air in the central portion of the liver. The possibility of portal vein air or pneumobilia cannot be excluded. GALLBLADDER AND BILE DUCTS: Status post cholecystectomy. Mildly dilated common bile duct noted. PANCREAS: Unremarkable. No gross lesion or ductal dilatation. SPLEEN: Splenomegaly is noted measures 13.5 centimeter. ADRENALS: Unremarkable. No mass. KIDNEYS AND URETERS: The kidneys are small in size. Multiple vascular calcification are seen in the kidneys. No evidence of hydronephrosis. VASCULATURE: Diffuse atherosclerotic calcification in the abdominal aorta is noted. No evidence of aneurysm. BOWEL: Postsurgical changes are noted around the stomach. There are adjacent fat stranding seen. There is moderately dilated small bowel loops in the left upper abdomen measures 6.9 centimeter in the transverse diameter adjacent to the stomach to small bowel anastomosis. No evidence of high-grade bowel obstruction. No definite evidence of pneumatosis or colitis. APPENDIX: No evidence of appendicitis. PERITONEUM: Unremarkable. No free fluid. No free air. LYMPH NODES: Unremarkable. No enlarged lymph nodes. BLADDER: Unremarkable. REPRODUCTIVE: Unremarkable. BONES: No acute fracture. Moderate degenerative changes at the lower thoracic and lumbar spine. OTHER FINDINGS: None. IMPRESSION: Questionable punctate air in the liver new compared to the previous exam. The possibility of portal vein gas or pneumobilia is not totally excluded. Correlate clinically for possible ischemic bowel changes. Splenomegaly. Moderately dilated small bowel loop at the left upper abdomen measures up to 6.9 centimeter in the transverse diameter. Diffuse atherosclerotic calcification in the abdominal aorta. Preliminary report was submitted by [facility].
[2017-10-30] MEDS: Epoetin Alfa 10,000 unit/ml Dialysis IV SCH (14:31)
--- NOTE | 2017-10-30 14:32 | CP.PCM.CON ---
History of Present Illness - History of Present Illness History of Present Illness: PGY-4 GI Fellow Initial Consult Note Mr. Salmon is a 67 yo Hisp Male with h/o PUD (s/p Bilroth 1 for perf?), Gastritis , Esophagitis, CAD, HTN presenting with abd pain. He states that over the last 3-4 days he has had "strong," non-radiating, epigatrum pain. Denied any clear precipitating or alleviating factors. States he was taking carafate without relief though states that is not for his "ulcer pain." States the percocet and morphine has helped. Denies any n/v, abd pain (at this time), melena, hematochezia. States his last BM was yesterday and was formed brown stool. 12 point ROS negative other that stated above MHx: CAD, HTN, DM, ESRD, PUD. SurgHx: Bilroth I. CABG, jose. Meds: Reviewed in MAR FHx: None SocHx: Occasional smoking, Denies alcohol. All: NKDA Past Patient History - Past Medical History & Family History Past Medical History?: Yes - Past Social History Smoking Status: Current Some Days Smoker - CARDIAC Hx Cardiac Disorders: Yes Hx Congestive Heart Failure: Yes Hx Hypercholesterolemia: Yes Hx Hypertension: Yes - PULMONARY Hx Respiratory Disorders: No - NEUROLOGICAL Hx Neurological Disorder: No - HEENT Hx HEENT Problems: No - RENAL Hx Chronic Kidney Disease: Yes Hx Dialysis: Yes Type of Dialysis Access: Left arm HD access Date of Last Dialysis Treatment: 10/26/17 Hx Kidney Stones: No Hx Neurogenic Bladder: No Hx Pyelonephritis: No Hx Renal (Kidney) Cancer: No Hx Renal Failure: Yes - ENDOCRINE/METABOLIC Hx Endocrine Disorders: Yes Hx Diabetes Mellitus Type 2: Yes - HEMATOLOGICAL/ONCOLOGICAL Hx Blood Disorders: Yes Hx Anemia: Yes - INTEGUMENTARY Hx Dermatological Problems: No - MUSCULOSKELETAL/RHEUMATOLOGICAL Hx Musculoskeletal Disorders: No Hx Falls: No - GASTROINTESTINAL Hx Gastrointestinal Disorders: Yes - GENITOURINARY/GYNECOLOGICAL Hx Genitourinary Disorders: No - PSYCHIATRIC Hx Psychophysiologic Disorder: No Hx Substance Use: No - SURGICAL HISTORY Hx Surgeries: Yes Hx Cholecystectomy: Yes Hx Coronary Artery Bypass Graft: Yes - ANESTHESIA Hx Anesthesia: Yes Hx Anesthesia Reactions: No Hx Malignant Hyperthermia: No Has any member of the family had a problem w/ anesthesia?: No Meds Allergies/Adverse Reactions: Allergies Allergy/AdvReac Type Severity Reaction Status Date / Time No Known Allergies Allergy Verified 10/29/17 17:34 - Medications Medications: Current Medications Albuterol Sulfate (Albuterol 0.083% Inhal Jacqueline (2.5 Mg/3 Ml) Ud) 2.5 mg INH RQ6 PRN PRN Reason: Shortness of Breath Aspirin (Aspirin Chewable) 81 mg PO DAILY [facility] Last Admin: 10/30/17 09:37 Dose: 81 mg Clopidogrel Bisulfate (Plavix) 75 mg PO DAILY [facility] Last Admin: 10/30/17 09:38 Dose: 75 mg Epoetin Adam (Procrit) 10,000 unit IV TTS [facility] Glimepiride (Amaryl) 2 mg PO DAILY [facility] Last Admin: 10/30/17 09:37 Dose: 2 mg Heparin Sodium (Porcine) (Heparin) 5,000 units SC Q12H [facility] Last Admin: 10/30/17 11:34 Dose: Not Given Heparin Sodium (Porcine) (Heparin) 2,000 units IVP TTS [facility] Metoprolol Succinate (Toprol Xl) 25 mg PO DAILY [facility] Last Admin: 10/30/17 09:37 Dose: 25 mg Montelukast Sodium (Singulair) 10 mg PO HS [facility] Oxycodone/Acetaminophen (Percocet 5/325 Mg Tab) 2 tab PO Q6H PRN PRN Reason: Pain, severe (8-10) Stop: 11/01/17 23:35 Last Admin: 10/30/17 08:44 Dose: 2 tab Pantoprazole Sodium (Protonix Ec Tab) 40 mg PO DAILY [facility] Last Admin: 10/30/17 08:01 Dose: 40 mg Pregabalin (Lyrica) 25 mg PO BID [facility] Last Admin: 10/30/17 09:38 Dose: 25 mg Rosuvastatin Calcium (Crestor) 5 mg PO HS [facility] Sucralfate (Carafate Oral Susp) 1 gm PO TID [facility] Last Admin: 10/30/17 14:01 Dose: Not Given Trazodone HCl (Desyrel) 100 mg PO HS [facility] Vitamin B Complex/Vit C/Folic Acid (Nephro-Benjamin) 1 tab PO 0800 [facility] Physical Exam - Constitutional Appears: Well, Non-toxic, No Acute Distress - Head Exam Head Exam: ATRAUMATIC, NORMAL INSPECTION - Eye Exam Eye Exam: EOMI. absent: Conjunctival injection, Scleral icterus - ENT Exam ENT Exam: Mucous Membranes Moist, Normal External Ear Exam. absent: Mucous Membranes Dry - Respiratory Exam Respiratory Exam: Clear to Auscultation Bilateral, NORMAL BREATHING PATTERN. absent: Accessory Muscle Use, Wheezes, Respiratory Distress - Cardiovascular Exam Cardiovascular Exam: REGULAR RHYTHM, RRR - GI/Abdominal Exam GI & Abdominal Exam: Normal Bowel Sounds, Soft. absent: Bruit, Diminished Bowel Sounds, Distended, Firm, Guarding, Hernia, Hyperactive Bowel Sounds, Hypoactive Bowel Sounds, Mass, Organomegaly, Pulsatile Mass, Rebound, Rigid, Tenderness - Rectal Exam Rectal Exam: Deferred - Extremities Exam Extremities exam: Positive for: normal inspection. Negative for: pedal edema - Neurological Exam Neurological exam: Alert, CN II-XII Intact, Oriented x3 - Psychiatric Exam Psychiatric exam: Normal Affect, Normal Mood - Skin Skin Exam: Normal Color, Warm Additional comments: Large midline scar in abdomen and chest Results - Vital Signs Recent Vital Signs: Last Vital Signs Temp 98.3 F 10/30/17 09:34 Pulse 85 10/30/17 09:34 Resp 20 10/30/17 09:34 BP 165/82 H 10/30/17 09:34 Pulse Ox 99 10/30/17 09:34 - Labs Result Diagrams: 10/29/17 19:53 10/29/17 19:53 Labs: Laboratory Results - last 24 hr 10/29/17 10/29/17 10/29/17 19:41 19:41 19:53 WBC 6.3 RBC 3.12 L Hgb 9.4 L Hct 28.6 L MCV 91.6 MCH 30.1 MCHC 32.8 L RDW 16.8 H Plt Count 273 MPV 8.6 Neut % (Auto) 69.2 Lymph % (Auto) 15.0 L Kern % (Auto) 9.9 Eos % (Auto) 5.1 H Baso % (Auto) 0.8 Neut # (Auto) 4.3 Lymph # (Auto) 0.9 L Kern # (Auto) 0.6 Eos # (Auto) 0.3 Baso # (Auto) 0.0 Sodium Potassium Chloride Carbon Dioxide Anion Gap BUN Creatinine Est GFR ( Amer) Est GFR (Non-Af Amer) POC Glucose (mg/dL) Random Glucose Calcium Total Bilirubin AST ALT Alkaline Phosphatase Total Protein Albumin Globulin Albumin/Globulin Ratio Lipase Urine Color Yellow Urine Clarity Clear Urine pH 8.0 Ur Specific [place] 1.009 Urine Protein 2+ H Urine Glucose (UA) 3+ H Urine Ketones Negative Urine Blood Negative Urine Nitrate Negative Urine Bilirubin Negative Urine Urobilinogen Normal Ur Leukocyte Esterase Neg Urine WBC (Auto) 1 Ur Squamous Epith Cells 2 Urine Bacteria Rare Urine Opiates Screen Negative Urine Methadone Screen Negative Ur Barbiturates Screen Negative Ur Phencyclidine Scrn Negative Ur Amphetamines Screen Negative U Benzodiazepines Scrn Negative U Oth Cocaine Metabols Negative U Cannabinoids Screen Negative 10/29/17 10/30/17 10/30/17 19:53 07:29 11:24 WBC RBC Hgb Hct MCV MCH MCHC RDW Plt Count MPV Neut % (Auto) Lymph % (Auto) Kern % (Auto) Eos % (Auto) Baso % (Auto) Neut # (Auto) Lymph # (Auto) Kern # (Auto) Eos # (Auto) Baso # (Auto) Sodium 140 Potassium 4.9 Chloride 95 L Carbon Dioxide 27 Anion Gap 23 H BUN 62 H Creatinine 9.7 H* D Est GFR ( Amer) 7 Est GFR (Non-Af Amer) 5 POC Glucose (mg/dL) 79 74 Random Glucose 176 H Calcium 9.0 Total Bilirubin 0.3 AST 18 ALT 16 L D Alkaline Phosphatase 148 H Total Protein 6.8 Albumin 3.9 Globulin 3.0 Albumin/Globulin Ratio 1.3 Lipase 86 Urine Color Urine Clarity Urine pH Ur Specific [place] Urine Protein Urine Glucose (UA) Urine Ketones Urine Blood Urine Nitrate Urine Bilirubin Urine Urobilinogen Ur Leukocyte Esterase Urine WBC (Auto) Ur Squamous Epith Cells Urine Bacteria Urine Opiates Screen Urine Methadone Screen Ur Barbiturates Screen Ur Phencyclidine Scrn Ur Amphetamines Screen U Benzodiazepines Scrn U Oth Cocaine Metabols U Cannabinoids Screen Assessment & Plan - Assessment and Plan (Free Text) Assessment: 67 yo Hisp Mal ewith PUD s/p Bilroth, CAD presenting with abd pain # Abd Pain: Unclear etiology though seem to have improved nearly resolved after some narcotic administration as patient ate complete lunch during my encounter without difficulty. Despite Hgb being down some, there are no signs of bleeding with brown bowel movement, no hematemesis, etc. Plan: - Supportive care - Cont Carafate - Cont PPI - Would avoid/limit narcotics - Pt to have repeat EGD at some point as previously had food within --- If no further pain, can be done as outpatient Pt discused with Dr. Urrutia
[2017-10-30] MEDS ORDERED: Dextrose 50% SYRINGE Inj (50 ml) IV STA (22:18)
--- NOTE | 2017-10-31 02:21 | CON ---
Copied To: Christian Hebert MD Attending MD: Christian Hebert MD DATE: 10/30/2017 CARDIOLOGY CONSULTATION REASON FOR CONSULTATION: Coronary artery disease, status post coronary artery bypass surgery. HISTORY OF PRESENT ILLNESS: The patient is a 67-year-old male who has a history end-stage renal disease, on hemodialysis for the past five years; history of hypertension, diabetes mellitus, history of coronary artery disease, status post coronary bypass surgery, history of bleeding peptic ulcer disease, status post surgery some five years ago according to the patient. The patient's most recent cardiac catheterization was in 07/2016 which revealed patent saphenous vein graft to the distal right coronary artery. The patient's right coronary artery was totally occluded proximally. There was significant disease over the distal left main as well as ostium of the LAD with borderline disease over the circumflex artery. Ejection fraction at that time was 65%. The stent site in the proximal LAD was patent. The patient presents at this time because of abdominal pain. He denies any retrosternal chest pain. SOCIAL HISTORY: Nonsmoker. MEDICATIONS: Albuterol inhaler 2.5 mg every 6 hours, Amaryl 2 mg once a day, aspirin 81 mg once a day, Crestor 5 mg once a day, heparin 5000 units subcutaneously twice a day, Plavix 75 mg once a day, Singulair 10 mg once a day, Toprol-XL 25 mg once a day. PAST MEDICAL HISTORY: Hypertension, diabetes mellitus, coronary artery disease, status post coronary bypass surgery. PHYSICAL EXAMINATION: GENERAL: The patient is an elderly male who does not appear to be in acute distress. VITAL SIGNS: Blood pressure 90/68, heart rate 69, temperature 97.7, respirations 20. HEENT: Pale conjunctivae. CHEST: Clear. HEART: S1, S2 are regular. ABDOMEN: Mild epigastric and periumbilical tenderness. EXTREMITIES: No edema. LABORATORY DATA: Hemoglobin and hematocrit 9.4 and 28.6, white count and platelet count are within normal limits. SMA-7: Sodium 140, potassium 4.9, chloride 95, CO2 of 27, glucose 176, BUN 62, creatinine 9.7. Alkaline phosphatase elevated at 148. Lipase is within normal limit. Urine drug screen is negative. Echocardiographic study two months ago in 08/2017 revealed normal left ventricular systolic function, ejection fraction within a normal range. EKG done on 10/09/2017 revealed sinus rhythm, inferior infarct of indeterminate age. Abdomen and pelvis CT scan, moderate dilated small bowel loops of the left upper abdomen, diffuse atherosclerotic calcification of abdominal aorta. I did review the surgical consult, and the assessment is peptic ulcer disease, status post Billroth surgery, and the plan was supportive care, to continue Carafate and proton pump inhibitors. ASSESSMENT: 1. 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 2. Abdominal pain, history of peptic ulcer disease, status post Billroth surgery. 3. End-stage renal disease, on hemodialysis. 4. Hypertension and diabetes mellitus. RECOMMENDATIONS: Continue current aspirin 81 mg once a day, Crestor 5 mg once a day. Discontinue subcutaneous heparin. Discontinue Plavix. Continue Protonix 40 mg once a day and Toprol-XL 25 mg once a day. Christian Hebert MD
--- NOTE | 2017-10-31 05:22 | CP.PCM.CON ---
History of Present Illness - History of Present Illness History of Present Illness: GENERAL SURGERY CONSULT NOTE FOR DR. PITTMAN 67yo M with a PMHx of diabetes, HTN, ESRD, hypercholesterolemia, and CAD presented to the ED on 10/29 with epigastric pain for a couple days. CT at that time showed moderately dilated small bowel loops in LUQ. Pt denies nausea or vomiting. Denies diarrhea or constipation. Last BM was yesterday and he is passing flatus. Pt's diet was advanced to HHD by primary team and he states that eating food relieved his pain. PMHx - diabetes, HTN, ESRD on dialysis MWF, hypercholesterolemia, CAD PSHx - cholecystectomy, CABG, Billroth I at [facility] Meds: MAR reviewed Allergies - NKDA Social Hx - denies alcohol or drug use, smokes 1 cigarette per day Review of Systems - Review of Systems All systems: reviewed and no additional remarkable complaints except (as per HPI ) Past Patient History - Past Medical History & Family History Past Medical History?: Yes - Past Social History Smoking Status: Current Some Days Smoker - CARDIAC Hx Cardiac Disorders: Yes Hx Congestive Heart Failure: Yes Hx Hypercholesterolemia: Yes Hx Hypertension: Yes - PULMONARY Hx Respiratory Disorders: No - NEUROLOGICAL Hx Neurological Disorder: No - HEENT Hx HEENT Problems: No - RENAL Hx Chronic Kidney Disease: Yes Hx Dialysis: Yes Type of Dialysis Access: Left arm HD access Date of Last Dialysis Treatment: 10/26/17 Hx Kidney Stones: No Hx Neurogenic Bladder: No Hx Pyelonephritis: No Hx Renal (Kidney) Cancer: No Hx Renal Failure: Yes - ENDOCRINE/METABOLIC Hx Endocrine Disorders: Yes Hx Diabetes Mellitus Type 2: Yes - HEMATOLOGICAL/ONCOLOGICAL Hx Blood Disorders: Yes Hx Anemia: Yes - INTEGUMENTARY Hx Dermatological Problems: No - MUSCULOSKELETAL/RHEUMATOLOGICAL Hx Musculoskeletal Disorders: No Hx Falls: No - GASTROINTESTINAL Hx Gastrointestinal Disorders: Yes - GENITOURINARY/GYNECOLOGICAL Hx Genitourinary Disorders: No - PSYCHIATRIC Hx Psychophysiologic Disorder: No Hx Substance Use: No - SURGICAL HISTORY Hx Surgeries: Yes Hx Cholecystectomy: Yes Hx Coronary Artery Bypass Graft: Yes - ANESTHESIA Hx Anesthesia: Yes Hx Anesthesia Reactions: No Hx Malignant Hyperthermia: No Has any member of the family had a problem w/ anesthesia?: No Meds Allergies/Adverse Reactions: Allergies Allergy/AdvReac Type Severity Reaction Status Date / Time No Known Allergies Allergy Verified 10/29/17 17:34 - Medications Medications: Current Medications Albuterol Sulfate (Albuterol 0.083% Inhal Jacqueline (2.5 Mg/3 Ml) Ud) 2.5 mg INH RQ6 PRN PRN Reason: Shortness of Breath Aspirin (Aspirin Chewable) 81 mg PO DAILY [facility] Last Admin: 10/30/17 09:37 Dose: 81 mg Clopidogrel Bisulfate (Plavix) 75 mg PO DAILY [facility] Last Admin: 10/30/17 09:38 Dose: 75 mg Epoetin Adam (Procrit) 10,000 unit IV TTS [facility] Last Admin: 10/30/17 14:31 Dose: 10,000 unit Glimepiride (Amaryl) 2 mg PO DAILY [facility] Last Admin: 10/30/17 09:37 Dose: 2 mg Heparin Sodium (Porcine) (Heparin) 5,000 units SC Q12H [facility] Last Admin: 10/30/17 21:30 Dose: 5,000 units Heparin Sodium (Porcine) (Heparin) 2,000 units IVP TTS [facility] Last Admin: 10/30/17 14:31 Dose: 2,000 units Metoprolol Succinate (Toprol Xl) 25 mg PO DAILY [facility] Last Admin: 10/30/17 09:37 Dose: 25 mg Montelukast Sodium (Singulair) 10 mg PO HS [facility] Last Admin: 10/30/17 21:30 Dose: 10 mg Oxycodone/Acetaminophen (Percocet 5/325 Mg Tab) 2 tab PO Q6H PRN PRN Reason: Pain, severe (8-10) Stop: 11/01/17 23:35 Last Admin: 10/30/17 17:32 Dose: 2 tab Pantoprazole Sodium (Protonix Ec Tab) 40 mg PO DAILY [facility] Last Admin: 10/30/17 08:01 Dose: 40 mg Pregabalin (Lyrica) 25 mg PO BID [facility] Last Admin: 10/30/17 17:29 Dose: 25 mg Rosuvastatin Calcium (Crestor) 5 mg PO HS [facility] Last Admin: 10/30/17 21:30 Dose: 5 mg Sucralfate (Carafate Oral Susp) 1 gm PO TID [facility] Last Admin: 10/30/17 17:29 Dose: 1 gm Trazodone HCl (Desyrel) 100 mg PO HS [facility] Last Admin: 10/30/17 21:30 Dose: 100 mg Vitamin B Complex/Vit C/Folic Acid (Nephro-Benjamin) 1 tab PO 0800 [facility] Physical Exam - Constitutional Appears: Well, Non-toxic, No Acute Distress - Head Exam Head Exam: ATRAUMATIC, NORMAL INSPECTION - Eye Exam Eye Exam: EOMI, Normal appearance - Respiratory Exam Respiratory Exam: NORMAL BREATHING PATTERN. absent: Respiratory Distress - Cardiovascular Exam Cardiovascular Exam: +S1, +S2 - GI/Abdominal Exam GI & Abdominal Exam: Distended (mild), Soft. absent: Firm, Guarding, Rebound, Rigid, Tenderness Additional comments: sternotomy and midline abdominal incision scars - Neurological Exam Neurological exam: Alert, CN II-XII Intact, Oriented x3 - Psychiatric Exam Psychiatric exam: Normal Affect, Normal Mood - Skin Skin Exam: Dry, Normal Color, Warm Results - Vital Signs Recent Vital Signs: Last Vital Signs Temp 99.1 F 10/31/17 00:00 Pulse 79 10/31/17 00:00 Resp 20 10/31/17 00:00 BP 109/63 10/31/17 00:00 Pulse Ox 95 10/31/17 00:00 - Labs Result Diagrams: 10/29/17 19:53 10/29/17 19:53 Labs: Laboratory Results - last 24 hr 10/30/17 10/30/17 10/30/17 07:29 11:24 16:07 POC Glucose (mg/dL) 79 74 81 Assessment & Plan - Assessment and Plan (Free Text) Assessment: 67yo M with a PMHx of diabetes, HTN, ESRD, hypercholesterolemia, CAD, and numerous previous surgeries was found to have dilated small bowel loops but is not clinically obstructed - Pt is tolerating diet, having bowel function and is not clinically obstructed - Pt states that abdominal pain has resolved and was relieved by eating - Continue regular diet - Further recs per Dr. Oneida Borrero PGY-4
[2017-10-31 07:34] LABS: BASO % 0.4 % (0.0-2.0); EOS # 0.2 K/uL (0.0-0.7); EOS % 2.5 % (0.0-4.0); HEMOGLOBIN 10.4 g/dL (12.0-18.0); LYMPH # 0.7 K/uL (1.0-4.3); LYMPH % 9.4 % (20.0-40.0); MEAN CELL VOLUME 91.5 fL (80.0-94.0); MEAN CORPUSCULAR HEMOGLOBIN 30.1 pg (27.0-31.0); MEAN CORPUSCULAR HGB CONC 32.9 g/dL (33.0-37.0); MEAN PLATELET VOLUME 9.1 fL (7.2-11.7); MONO # 0.7 K/uL (0.0-0.8); MONO % 9.8 % (0.0-10.0); NEUT # 5.9 K/uL (1.8-7.0); NEUT % 77.9 % (50.0-75.0); PLATELET COUNT 311 K/uL (130-400); RBC 3.47 Mil/uL (4.40-5.90); RED CELL DISTRIBUTION WIDTH 17.1 % (11.5-14.5); WHITE BLOOD COUNT 7.5 K/uL (4.8-10.8)
--- NOTE | 2017-10-31 08:00 | HP ---
Copied To: Sd Garcia MD Attending MD: Sd Garcia MD HISTORY OF PRESENT ILLNESS: This is 67-year-old female, who came to my office complaining of intermittent abdominal pain. The pain has started to the office, and progressively the pain was worsening, so the patient was advised to go to the emergency room since the patient has a past history of intestinal obstruction. The patient denies nausea or vomiting but has been feeling weak. ALLERGIES: THE PATIENT HAS NO KNOWN ALLERGY. PAST SURGICAL HISTORY: History of CAD, history of CABG x2, history of laparotomy x2, history of peptic ulcer disease, end-stage renal disease, diabetes, and hypertension. SOCIAL HISTORY: The patient has history of smoking, but no history of alcohol abuse or substance abuse. FAMILY HISTORY: There is no inherited disease. REVIEW OF SYSTEMS: Respiratory system: The patient denies any shortness of breath. Cardiovascular: The patient denies any chest pain, but has been having some palpitation at times and some slight tightness on and off. GI: Epigastric pain and also pain to the periumbilical area which are intermittent. : Anuria, the patient has end-stage renal disease. Neurologic: The patient feels somewhat weak. PHYSICAL EXAMINATION: GENERAL: The patient is alert, awake, and oriented x3. VITAL SIGNS: The patient has blood pressure that was 112/55, pulse rate is 69, respirations 20, and temperature 97.3. NECK: Supple. No JVD. LUNGS: There are some rales at the bases. HEART: Regular rate and rhythm. Positive murmur. ABDOMEN: Soft, mildly distended, and tenderness to the left side of the abdomen and at the periumbilical area, positive bowel sounds. There are also two large scar over the abdomen where there was one medial scar on the chest over the sternum. EXTREMITIES: There is no edema noted. LABORATORY DATA: The patient in the emergency room had test done including CT of the abdomen and pelvis that was done, and CT of the abdomen has shown a questionable punctate air in the liver, new compared to the previous exam. splenomegaly and moderately dilated small bowel loop at the left upper abdomen and measured 6 to 9 cm in its closest diameter, and calcification in the abdominal aorta. Test has shown that WBC was 6.3, hemoglobin 9.4, hematocrit 28.6, and platelets 273. Chemistry showed that the sodium is 140, potassium 4.9, chloride 95, bicarb 27, BUN 62, creatinine 9.7, AST 18, ALT 16, alkaline phosphatase 148, lipase is 86. IMPRESSION: The patient was admitted with diagnosis of intestinal obstruction. History of end stage renal disease, history of hypertension and coronary artery disease, and past history of coronary artery bypass grafting x2, so the patient will have a consult Dr. Short of Cardiology and also will have a consult with Dr. Urrutia of GI due to because of end stage renal disease. The case was studied and reviewed with Gillian Diaz, the nurse practitioner. PLAN: We will continue to monitor the abdomen, and also we ordered a surgical consult at this point. Sd Garcia MD ARLINE
[2017-10-31 08:02] LABS: TROPONIN I 0.033 ng/mL (0.00-0.120)
[2017-10-31 08:29] LABS: ALB/GLOB RATIO 1.5 (1.0-2.1); ALBUMIN 4.1 g/dL (3.5-5.0); CALCIUM 8.9 mg/dl (8.6-10.4)
[2017-10-31 08:53] LABS: BASOPHIL 3 % (0-2); EOSINOPHIL 1 % (0-4); MONOCYTE 8 % (0-10); NEUTROPHIL 78 % (50-75); TOTAL CELLS COUNTED 100
[2017-10-31 08:54] LABS: ANISOCYTOSIS SLIGHT; HYPOCHROMIC SLIGHT; LYMPHOCYTE 10 % (20-40); PLATELET ESTIMATE NORMAL (NORMAL); POIKILOCYTOSIS SLIGHT
[2017-10-31] MEDS: Sucralfate 1 gm/10 ml Oral Susp UD PO SCH ×3 (10:06→18:02)
[2017-10-31] MEDS: Pantoprazole 40 mg EC Tab PO SCH (10:06)
[2017-10-31] MEDS: Multivitamin Vitamin B Complex (Nephro-Vite) Tab PO SCH (10:07)
[2017-10-31] MEDS: Metoprolol Succinate 25 mg XL Tab PO SCH (10:07)
[2017-10-31] MEDS: Oxycodone/Acetaminophen 5/325 mg Tab PO PRN (10:11)
--- NOTE | 2017-10-31 14:19 | CP.PCM.PN ---
Subjective - Date & Time of Evaluation Date of Evaluation: 10/31/17 Time of Evaluation: 14:17 - Subjective Subjective: Nephrology Consultation Note: Assessment: stable pain abdomen, missed HD Hypoglycemia esophageal ulcer and gastritis on EGD 10/12/17, SBO Diabetic chronic Kidney Disease (E11.22) Hypertensive Chronic Kidney Disease (I12.0) End stage renal disease (N18.6) dependence on hemodialysis (Z99.2) (MWF) via AVG Anemia (D64.9), Hyperphosphatemia (E83.39), Secondary Hyperparathyroidism (E21.1 ), HTN (I12.0) CAD s/p CABG, active smoker hx of peptic ulcer disease Plan: Will plan for HD tomorrow as ordered. continue with Nephrovite 1 tab/day last HB 9.4 hence added HARINDER with HD maintain hemodynamics stable, continue with BP meds continue with phos binders as phoslo once stable on diet Glycemic control. avoid glimerpide. can use non-renally excreted sulphonylurea such as glipizide (but not long acting) instead, if needed Further work up/management as per primary team Dose meds/antibiotics for ESRD status. Avoid fleets enema/magnesium based laxatives. GI following continue with PPI Thanks for allowing me to participate in care of your patient. Will follow patient with you. Please call if any Qs. had d/w team Dr Solo Valentino Office: [phone] Chief Complaint; low sugar Reason for consult: ESRD management HPI: Pt is a 67 M with hx of ESRD on hemodialysis (MWF) via [facility] but non- compliant, last dialysis last week @[facility], chronic anemia, hyperphosphatemia, secondary hyperparathyroidism, Diabetes Mellitus, hypertension, CAD s/p CABG, active smoker, hx of partial gastrectomy, SBO and peptic ulcer bleed presented with complaints of worsening abdomen pain and admitted for further management renal consult for ESRD management denies CP/sob/nausea/vomiting ROS: Denies chest pain, palpitation, shortness of breath, leg swelling now. c/o pain abdomer, bit better Physical Examination: General Appearance: Comfortable, in no acute respiratory distress, co-operative Vitals reviewed and noted as below Head; Atraumatic, normocephalic ENT: no ulcers no thrush. Tongue is midline. Oropharynx: no rash or ulcers. EYES: Pupils are equal, round and reactive to light accommodation. Eye muscles and extraocular movement intact. Sclera is anicteric. Neck; supple no lymphadenopathy, no thyromegaly or bruit Lungs: Normal respiratory rate/effort. Breath sounds bilateral equal and clear Heart: normal rate. s1s2 normal. No rub or gallop. has CABG scar Extremities: no edema. No varicose veins Neurological: Patient is awake alert follows commands, no focal deficit Skin: Warm and dry. Normal turgor. No rash. Palpitation: Normal elasticity for age Abdomen: Abdomen is soft. Bowel sounds +. There is mild epigastric abdominal tenderness, no guarding/rigidity or organomegaly. prior surgical scars+ Psych: limited insight. normal affect/mood MSK: no joint tenderness or swelling. Digits and nails normal, no deformity : kidney or bladder not palpable Access: AVG Labs/imaging reviewed. Past medical history, past surgical history, family history, social history, allergy reviewed and noted as below Family Hx: no hx of CKD. Non contributory Objective - Vital Signs/Intake and Output Vital Signs (last 24 hours): Temp Pulse Resp BP Pulse Ox 98.4 F 88 20 121/66 97 10/31/17 07:10 10/31/17 07:10 10/31/17 07:10 10/31/17 07:10 10/31/17 07:10 - Medications Medications: Current Medications Albuterol Sulfate (Albuterol 0.083% Inhal Jacqueline (2.5 Mg/3 Ml) Ud) 2.5 mg INH RQ6 PRN PRN Reason: Shortness of Breath Aspirin (Aspirin Chewable) 81 mg PO DAILY [facility] Last Admin: 10/31/17 10:06 Dose: 81 mg Clopidogrel Bisulfate (Plavix) 75 mg PO DAILY [facility] Last Admin: 10/31/17 10:06 Dose: 75 mg Epoetin Adam (Procrit) 10,000 unit IV TTS [facility] Last Admin: 10/30/17 14:31 Dose: 10,000 unit Glimepiride (Amaryl) 2 mg PO DAILY [facility] Last Admin: 10/30/17 09:37 Dose: 2 mg Heparin Sodium (Porcine) (Heparin) 5,000 units SC Q12H [facility] Last Admin: 10/31/17 10:07 Dose: 5,000 units Heparin Sodium (Porcine) (Heparin) 2,000 units IVP TTS [facility] Last Admin: 10/30/17 14:31 Dose: 2,000 units Metoprolol Succinate (Toprol Xl) 25 mg PO DAILY [facility] Last Admin: 10/31/17 10:07 Dose: 25 mg Montelukast Sodium (Singulair) 10 mg PO HS [facility] Last Admin: 10/30/17 21:30 Dose: 10 mg Oxycodone/Acetaminophen (Percocet 5/325 Mg Tab) 2 tab PO Q6H PRN PRN Reason: Pain, severe (8-10) Stop: 11/01/17 23:35 Last Admin: 10/31/17 10:11 Dose: 2 tab Pantoprazole Sodium (Protonix Ec Tab) 40 mg PO DAILY [facility] Last Admin: 10/31/17 10:06 Dose: 40 mg Pregabalin (Lyrica) 25 mg PO BID [facility] Last Admin: 10/31/17 10:06 Dose: 25 mg Rosuvastatin Calcium (Crestor) 5 mg PO HS [facility] Last Admin: 10/30/17 21:30 Dose: 5 mg Sucralfate (Carafate Oral Susp) 1 gm PO TID [facility] Last Admin: 10/31/17 10:06 Dose: 1 gm Trazodone HCl (Desyrel) 100 mg PO HS [facility] Last Admin: 10/30/17 21:30 Dose: 100 mg Vitamin B Complex/Vit C/Folic Acid (Nephro-Benjamin) 1 tab PO 0800 [facility] Last Admin: 10/31/17 10:07 Dose: 1 tab - Labs Labs: 10/31/17 07:21 10/31/17 07:21
--- NOTE | 2017-10-31 15:53 | PN ---
Copied To: Amada Sanders MD Attending MD: Amada Sanders MD DATE: 10/31/2017 LOCATION: 360, bed A. SUBJECTIVE: This is a 67-year-old male seen initially for GI consultation on 10/30/2017, reexamined again today with less complaint of abdominal pain. No reported active bleeding. Denied any actual chest pain, palpitation, significant shortness of breath, chills or fever, but lower back pain and intermittent period of abdominal pain postprandial. The patient is seen by the human capital consultant as well as nephrology independent crop consultant recently. The entire chart is reviewed including, but not limited to the most recent lab and radiology study results, current and the previous medication list, current and the previous medical events, and today's lab results showed hemoglobin 10.4, hematocrit 31.7 with normal white blood cells and normal platelet count with BUN 40, creatinine 7.3, the patient is on hemodialysis with blood glucose level of 164, phosphorus 5.6 with alkaline phosphatase 149. The patient had abdominal and pelvic CAT scan at the time of the admission. The initial report is seen indicative of abnormal finding of the liver with possible portal vein gas and evidence of splenomegaly as well as dilated small bowel loops. PHYSICAL EXAMINATION: GENERAL: A 67-year-old male appeared to be awake, alert, oriented. VITAL SIGNS: Afebrile with pulse of 84, respiratory rate of 20 to 22, blood pressure of 116/64. HEENT: Showed pale, dry oral mucous membrane. Nonicteric sclera. LUNGS: Few scattered crepitation. Decreased air entry at bases. HEART: Positive S1 and S2. ABDOMEN: Soft with slight distention with mild generalized tenderness. No mass or organomegaly. No rebound tenderness or guarding. EXTREMITIES: Without significant clubbing or cyanosis, but mild lower extremity edematous changes. AEROGRAPHER: No reported new neurological deficits, sensory, or motor. BACK: Showed lower spine mild tenderness. IMPRESSION: 1. Re-exacerbation of peptic ulcer disease with reported history of Billroth I. 2. Known history of end-stage renal disease on hemodialysis. 3. Poorly-controlled diabetes mellitus with possible diabetic gastroparesis. 4. Known history of hypertension, coronary artery disease, status post coronary artery bypass graft with status post cholecystectomy. 5. Abnormal CAT scan of the abdomen and pelvis. SUGGESTIONS: 1. Agree with your plan. 2. Due to the patient's anemia, cancer markers to be ordered. 3. Guaiac-positive stools every day x3. 4. No need for aggressive GI workup in the meantime as the patient's latest upper endoscopy as reported dated 10/09/2017 with the latest colonoscopy in 02/26/2017. 5. Proton pump inhibitors IV. 6. Reglan 5 mg IV every 8 hours p.r.n. 7. Further recommendation to follow. Amada Sanders MD
[2017-10-31] MEDS ORDERED: Dextrose 50% SYRINGE Inj (50 ml) IV STA (17:11)
--- NOTE | 2017-10-31 19:58 | PN ---
Copied To: Christian Hebert MD Attending MD: Christian Hebert MD DATE: 10/31/2017 SUBJECTIVE: The patient experienced dizziness and weakness. This morning, he was hypoglycemic with blood sugar of 35. The patient received dextrose 50% amp at 10:25. He is still mild dizzy, but denies any chest pain or shortness of breath. PHYSICAL EXAMINATION VITAL SIGNS: Blood pressure 121/66, heart rate 88, temperature 98.4, and respirations 20. HEENT: Normocephalic. CHEST: Clear. HEART: S1, S2 regular. EXTREMITIES: No edema. LABORATORY DATA: Hemoglobin and hematocrit 10.4 and 31.7. White count and platelet count are within normal limit. Today's SMA-7; sodium 140, potassium 5.2, chloride 95, CO2 of 28, glucose 35, BUN 40, and creatinine 7.3. The most recent Accu-Chek is 90 at 11:26 a.m. ASSESSMENT AND PLAN: 1. Coronary artery disease, status post coronary artery bypass surgery. 2. Abdominal pain. The patient has history of bleeding peptic ulcer disease, status post Billroth surgery. 3. End-stage renal disease, on hemodialysis. 4. Hypertension and diabetes mellitus. 5. Status post hypoglycemic episode. RECOMMENDATIONS: Continue Procrit 10,000 units TTS, Protonix 40 mg once a day, Toprol-XL 25 mg once a day. May discontinue subcutaneous heparin and Plavix and continue aspirin 81 mg once a day. Obtain 12 lead EKG today. Case was discussed with Dr. Sd Garcia today. Christian Hebert MD
--- NOTE | 2017-11-01 08:20 | PN ---
Copied To: Sd Garcia MD Attending MD: Sd Garcia MD DATE: 10/31/2017 SUBJECTIVE: The patient has episode of hypoglycemia. The patient is now complaining of back pain and decreased abdominal pain. The patient denies any shortness of breath. PHYSICAL EXAMINATION: VITAL SIGNS: The patient has a blood pressure of 113/69, pulse 78, respirations 20, and temperature 98.4. NECK: Supple. LUNGS: Clear. HEART: Regular rate and rhythm. Positive murmur. ABDOMEN: Soft. There is mild epigastric tenderness. EXTREMITIES: There is a left AV fistula for dialysis. PLAN: The plan is that we are going to given p.r.n. We have conservative therapy . We are going to continue to monitor this patient's sugar throughout the night. The case was reviewed and discussed with Gillian Diaz, the nurse practitioner. Sd Garcia MD
[2017-11-01] MEDS: Sucralfate 1 gm/10 ml Oral Susp UD PO SCH ×3 (08:30→17:20)
[2017-11-01] MEDS: Multivitamin Vitamin B Complex (Nephro-Vite) Tab PO SCH (08:41)
[2017-11-01] MEDS: Oxycodone/Acetaminophen 5/325 mg Tab PO PRN ×2 (08:41→14:41)
[2017-11-01] MEDS: Epoetin Alfa 10,000 unit/ml Dialysis IV SCH (09:25)
[2017-11-01 09:46] LABS: BASO # 0.1 K/uL (0.0-0.2); BASO % 0.7 % (0.0-2.0); EOS # 0.1 K/uL (0.0-0.7); EOS % 1.4 % (0.0-4.0); HEMOGLOBIN 9.9 g/dL (12.0-18.0); LYMPH # 0.5 K/uL (1.0-4.3); LYMPH % 6.1 % (20.0-40.0); MEAN CELL VOLUME 90.6 fL (80.0-94.0); MEAN CORPUSCULAR HEMOGLOBIN 30.5 pg (27.0-31.0); MEAN CORPUSCULAR HGB CONC 33.7 g/dL (33.0-37.0); MEAN PLATELET VOLUME 9.4 fL (7.2-11.7); MONO # 1.2 K/uL (0.0-0.8); MONO % 14.4 % (0.0-10.0); NEUT # 6.6 K/uL (1.8-7.0); NEUT % 77.4 % (50.0-75.0); PLATELET COUNT 239 K/uL (130-400); RBC 3.26 Mil/uL (4.40-5.90); RED CELL DISTRIBUTION WIDTH 16.1 % (11.5-14.5); WHITE BLOOD COUNT 8.6 K/uL (4.8-10.8)
[2017-11-01] MEDS: Pantoprazole 40 mg EC Tab PO SCH ×2 (10:00→14:41)
[2017-11-01] MEDS: Metoprolol Succinate 25 mg XL Tab PO SCH ×2 (10:00→14:41)
[2017-11-01 10:12] LABS: BANDS 1 % (0-2); BASOPHIL 1 % (0-2); EOSINOPHIL 1 % (0-4); LYMPHOCYTE 7 % (20-40); MONOCYTE 11 % (0-10); NEUTROPHIL 79 % (50-75); PLATELET ESTIMATE NORMAL (NORMAL); TOTAL CELLS COUNTED 100
[2017-11-01 10:14] LABS: ANISOCYTOSIS SLIGHT; HYPOCHROMIC SLIGHT
[2017-11-01 10:35] LABS: ALB/GLOB RATIO 1.2 (1.0-2.1); ALBUMIN 3.7 g/dL (3.5-5.0); CALCIUM 9.4 mg/dl (8.6-10.4)
--- NOTE | 2017-11-01 14:10 | PN ---
Copied To: Amada Sanders MD Attending MD: Amada Sanders MD DATE: 11/01/2017 LOCATION: 360, bed A. SUBJECTIVE: This 67-year-old male seen and examined in rounds without significant clinical changes or reported active bleeding, reported to have more than one episode of hypoglycemia with intermittent period of crampy abdominal pain, nausea and dyspepsia, but no reported active bleeding, vomiting, chest pain, or palpitation. The entire chart is reviewed including but not limited to the most recent lab and radiology study results, current and the previous medication list, current and the previous medical events. Most recent lab results showed blood glucose level of 90 and the patient has persistent low of hemoglobin and hematocrit with increased BUN and creatinine, on hemodialysis with near normal liver function test. PHYSICAL EXAMINATION: GENERAL: A 67-year-old male. VITAL SIGNS: Afebrile with pulse of 90, respiratory rate of 20 to 22, blood pressure of 100/58. HEENT: Showed pale, dry oral mucous membrane. Nonicteric sclerae. LUNGS: Few scattered crepitation. Decreased air entry at bases. HEART: Positive S1 and S2 with increased rate. ABDOMEN: Soft with mild generalized tenderness and distention. Spleen is palpable. No other mass or organomegaly. EXTREMITIES: With lower extremity edematous changes. No clubbing or cyanosis. NEUROLOGIC: No reported new neurological deficits, sensory or motor. IMPRESSION: 1. Re-exacerbation of peptic ulcer disease. 2. Poorly-controlled diabetes mellitus with periods of hypoglycemia. 3. Known history of end-stage renal disease, on hemodialysis. 4. Known history but not limited to hypertension, coronary artery disease, status post coronary artery bypass graft. 5. Status post cholecystectomy. SUGGESTIONS: 1. Agree with your plan. 2. Proton pump inhibitor. 3. The patient may be benefit from abdominal ultrasound with 04:48 attention to the biliary tree and pancreas. Further recommendation to follow. Amada Sanders MD
--- NOTE | 2017-11-01 14:23 | CP.PCM.PN ---
Subjective - Date & Time of Evaluation Date of Evaluation: 11/01/17 Time of Evaluation: 12:20 - Subjective Subjective: PLUG CUTTER NOTES Patient seen today , during HD with Dr. Garcia , denies any chest pain, sob, abdominal pain N/V/ tolerating diet BS stable , no hypoglycemic events noted over 24 hrs Objective - Vital Signs/Intake and Output Vital Signs (last 24 hours): Temp Pulse Resp BP Pulse Ox 97.8 F 95 H 18 106/61 98 11/01/17 12:40 11/01/17 12:40 11/01/17 12:40 11/01/17 12:40 11/01/17 12:40 Intake and Output: 11/01/17 11/01/17 06:59 18:59 Intake Total 400 Balance 400 - Medications Medications: Current Medications Albuterol Sulfate (Albuterol 0.083% Inhal Jacqueline (2.5 Mg/3 Ml) Ud) 2.5 mg INH RQ6 PRN PRN Reason: Shortness of Breath Aspirin (Aspirin Chewable) 81 mg PO DAILY [facility] Last Admin: 11/01/17 10:00 Dose: Not Given Clopidogrel Bisulfate (Plavix) 75 mg PO DAILY [facility] Last Admin: 11/01/17 10:00 Dose: Not Given Epoetin Adam (Procrit) 10,000 unit IV TTS [facility] Last Admin: 11/01/17 09:25 Dose: 10,000 unit Glimepiride (Amaryl) 2 mg PO DAILY [facility] Last Admin: 10/30/17 09:37 Dose: 2 mg Heparin Sodium (Porcine) (Heparin) 5,000 units SC Q12H [facility] Last Admin: 11/01/17 10:00 Dose: Not Given Heparin Sodium (Porcine) (Heparin) 2,000 units IVP TTS [facility] Last Admin: 11/01/17 09:25 Dose: 2,000 units Metoprolol Succinate (Toprol Xl) 25 mg PO DAILY [facility] Last Admin: 11/01/17 10:00 Dose: Not Given Montelukast Sodium (Singulair) 10 mg PO HS [facility] Last Admin: 10/31/17 22:00 Dose: 10 mg Oxycodone/Acetaminophen (Percocet 5/325 Mg Tab) 2 tab PO Q6H PRN PRN Reason: Pain, severe (8-10) Stop: 11/01/17 23:35 Last Admin: 11/01/17 08:41 Dose: 2 tab Pantoprazole Sodium (Protonix Ec Tab) 40 mg PO DAILY [facility] Last Admin: 11/01/17 10:00 Dose: Not Given Pregabalin (Lyrica) 25 mg PO BID [facility] Last Admin: 11/01/17 10:00 Dose: Not Given Rosuvastatin Calcium (Crestor) 5 mg PO HS [facility] Last Admin: 10/31/17 22:00 Dose: 5 mg Sucralfate (Carafate Oral Susp) 1 gm PO ACTID [facility] Last Admin: 11/01/17 11:30 Dose: Not Given Trazodone HCl (Desyrel) 100 mg PO HS [facility] Last Admin: 10/31/17 22:00 Dose: 100 mg Vitamin B Complex/Vit C/Folic Acid (Nephro-Benjamin) 1 tab PO 0800 [facility] Last Admin: 11/01/17 08:41 Dose: 1 tab - Labs Labs: 11/01/17 09:43 11/01/17 09:43 Assessment and Plan - Assessment and Plan (Free Text) Assessment: A/P 67yo M with a PMHx of diabetes, HTN, ESRD, hypercholesterolemia, and CAD presented to the ED on 10/29 with epigastric pain for a couple days. and CT done showed moderately dilated small bowel loops in [facility]. Dr. Burnham consulted and no surgical intervention , pt tolerated diet and having BM D/W Dr. Burnham no surgical intervention and cleared for discharge from surgical standpoint discharge plan discussed with Dr. Garcia , patient cleared for discharge home today and f/u with Dr. Garcia office next week SW will arrange transportation and contact HD center for resume HD
--- NOTE | 2017-11-01 14:44 | CP.PCM.PN ---
Subjective - Date & Time of Evaluation Date of Evaluation: 11/01/17 Time of Evaluation: 14:43 - Subjective Subjective: Nephrology Consultation Note: Assessment: stable pain abdomen, missed HD Hypoglycemia esophageal ulcer and gastritis on EGD 10/12/17, SBO Diabetic chronic Kidney Disease (E11.22) Hypertensive Chronic Kidney Disease (I12.0) End stage renal disease (N18.6) dependence on hemodialysis (Z99.2) (MWF) via [facility] Anemia (D64.9), Hyperphosphatemia (E83.39), Secondary Hyperparathyroidism (E21.1 ), HTN (I12.0) CAD s/p CABG, active smoker hx of peptic ulcer disease Plan: Will plan for HD tomorrow as MWF schedule as ordered. continue with Nephrovite 1 tab/day. Pt had HD today as well last HB 9.4 hence added HARINDER with HD maintain hemodynamics stable, BP on low side, not on bp meds continue with phos binders as phoslo once stable on diet Glycemic control. avoid glimerpide. can use non-renally excreted sulphonylurea such as glipizide (but not long acting) instead, if needed Further work up/management as per primary team Dose meds/antibiotics for ESRD status. Avoid fleets enema/magnesium based laxatives. GI following continue with PPI Thanks for allowing me to participate in care of your patient. Will follow patient with you. Please call if any Qs. had d/w team Dr Solo Valentino Office: [phone] Reason for consult: ESRD management HPI: Pt is a 67 M with hx of ESRD on hemodialysis (MWF) via [facility] but non- compliant, last dialysis last week @[facility], chronic anemia, hyperphosphatemia, secondary hyperparathyroidism, Diabetes Mellitus, hypertension, CAD s/p CABG, active smoker, hx of partial gastrectomy, SBO and peptic ulcer bleed presented with complaints of worsening abdomen pain and admitted for further management renal consult for ESRD management denies CP/sob/nausea/vomiting ROS: Denies chest pain, palpitation, shortness of breath, leg swelling now. c/o pain abdomer, bit better Physical Examination: General Appearance: Comfortable, in no acute respiratory distress, co-operative Vitals reviewed and noted as below Head; Atraumatic, normocephalic ENT: no ulcers no thrush. Tongue is midline. Oropharynx: no rash or ulcers. EYES: Pupils are equal, round and reactive to light accommodation. Eye muscles and extraocular movement intact. Sclera is anicteric. Neck; supple no lymphadenopathy, no thyromegaly or bruit Lungs: Normal respiratory rate/effort. Breath sounds bilateral equal and clear Heart: normal rate. s1s2 normal. No rub or gallop. has CABG scar Extremities: no edema. No varicose veins Neurological: Patient is awake alert follows commands, no focal deficit Skin: Warm and dry. Normal turgor. No rash. Palpitation: Normal elasticity for age Abdomen: Abdomen is soft. Bowel sounds +. There is mild epigastric abdominal tenderness, no guarding/rigidity or organomegaly. prior surgical scars+ Psych: limited insight. normal affect/mood MSK: no joint tenderness or swelling. Digits and nails normal, no deformity : kidney or bladder not palpable Access: AVG Labs/imaging reviewed. Past medical history, past surgical history, family history, social history, allergy reviewed and noted as below Family Hx: no hx of CKD. Non contributory Objective - Vital Signs/Intake and Output Vital Signs (last 24 hours): Temp Pulse Resp BP Pulse Ox 97.8 F 95 H 18 106/61 98 11/01/17 12:40 11/01/17 12:40 11/01/17 12:40 11/01/17 12:40 11/01/17 12:40 Intake and Output: 11/01/17 11/01/17 06:59 18:59 Intake Total 400 Balance 400 - Medications Medications: Current Medications Albuterol Sulfate (Albuterol 0.083% Inhal Jacqueline (2.5 Mg/3 Ml) Ud) 2.5 mg INH RQ6 PRN PRN Reason: Shortness of Breath Aspirin (Aspirin Chewable) 81 mg PO DAILY [facility] Last Admin: 11/01/17 14:41 Dose: 81 mg Clopidogrel Bisulfate (Plavix) 75 mg PO DAILY [facility] Last Admin: 11/01/17 14:41 Dose: 75 mg Epoetin Adam (Procrit) 10,000 unit IV TTS [facility] Last Admin: 11/01/17 09:25 Dose: 10,000 unit Glimepiride (Amaryl) 2 mg PO DAILY [facility] Last Admin: 08/14/18 09:37 Dose: 2 mg Heparin Sodium (Porcine) (Heparin) 5,000 units SC Q12H [facility] Last Admin: 11/01/17 10:00 Dose: Not Given Heparin Sodium (Porcine) (Heparin) 2,000 units IVP TTS [facility] Last Admin: 11/01/17 09:25 Dose: 2,000 units Metoprolol Succinate (Toprol Xl) 25 mg PO DAILY [facility] Last Admin: 11/01/17 14:41 Dose: 25 mg Montelukast Sodium (Singulair) 10 mg PO HS [facility] Last Admin: 10/31/17 22:00 Dose: 10 mg Oxycodone/Acetaminophen (Percocet 5/325 Mg Tab) 2 tab PO Q6H PRN PRN Reason: Pain, severe (8-10) Stop: 11/01/17 23:35 Last Admin: 11/01/17 14:41 Dose: 2 tab Pantoprazole Sodium (Protonix Ec Tab) 40 mg PO DAILY [facility] Last Admin: 11/01/17 14:41 Dose: 40 mg Pregabalin (Lyrica) 25 mg PO BID [facility] Last Admin: 11/01/17 10:00 Dose: Not Given Rosuvastatin Calcium (Crestor) 5 mg PO HS [facility] Last Admin: 10/31/17 22:00 Dose: 5 mg Sucralfate (Carafate Oral Susp) 1 gm PO ACTID [facility] Last Admin: 11/01/17 11:30 Dose: Not Given Trazodone HCl (Desyrel) 100 mg PO HS [facility] Last Admin: 10/31/17 22:00 Dose: 100 mg Vitamin B Complex/Vit C/Folic Acid (Nephro-Benjamin) 1 tab PO 0800 [facility] Last Admin: 11/01/17 08:41 Dose: 1 tab - Labs Labs: 11/01/17 09:43 11/01/17 09:43
--- NOTE | 2017-11-01 19:37 | PN ---
Copied To: Christian Hebert MD Attending MD: Christian Hebert MD DATE: 11/01/2017 SUBJECTIVE: The patient denies chest pain. He complains of bilateral foot pain and at times dizziness. The patient underwent scheduled hemodialysis morning. PHYSICAL EXAMINATION: VITAL SIGNS: Blood pressure 106/61, heart rate 95, temperature 97.8, respirations 18. HEENT: Pale conjunctivae. CHEST: Clear. HEART: S1 and S2 regular. ABDOMEN: Soft. EXTREMITIES: No edema and no calf tenderness. LABORATORY DATA: Today's hemoglobin and hematocrit 9.9 and 29.5. White count and platelet count are within normal limit. Today's SMA-7 prior to hemodialysis, sodium 136, potassium 6, chloride 94, CO2 of 25, glucose 118, BUN 60, creatinine 9.8. 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 The report was conveyed to me by the nurse. The EKG is not available either in the chart or on the [facility] database; however, the reading is similar to the most recent EKG available on [facility] database in 10/09/2017, i.e., three weeks ago. ASSESSMENT: 1. Coronary artery disease status post coronary artery bypass surgery twice. 2. End-stage renal disease on hemodialysis. 3. Uncontrolled diabetes mellitus. 4. History of bleeding peptic ulcer disease, status post Billroth II surgery. 5. Anemia. 6. Rule out hyperuricemia and gouty arthritis. RECOMMENDATIONS: Continue current Amaryl 2 mg once a day, aspirin 81 mg once a day, Crestor 5 mg once a day, Procrit at 10,000 intravenous TTS. Obtain serum uric acid level. The patient was started on Percocet at two tablets every 6 hours p.r.n. for severe foot pain. Christian Hebert MD
--- NOTE | 2017-11-01 23:07 | CP.PCM.CON ---
Past Patient History - Past Medical History & Family History Past Medical History?: Yes - Past Social History Smoking Status: Current Some Days Smoker - CARDIAC Hx Cardiac Disorders: Yes Hx Congestive Heart Failure: Yes Hx Hypercholesterolemia: Yes Hx Hypertension: Yes - PULMONARY Hx Respiratory Disorders: No - NEUROLOGICAL Hx Neurological Disorder: No - HEENT Hx HEENT Problems: No - RENAL Hx Chronic Kidney Disease: Yes Hx Dialysis: Yes Type of Dialysis Access: Left arm HD access Date of Last Dialysis Treatment: 10/26/17 Hx Kidney Stones: No Hx Neurogenic Bladder: No Hx Pyelonephritis: No Hx Renal (Kidney) Cancer: No Hx Renal Failure: Yes - ENDOCRINE/METABOLIC Hx Endocrine Disorders: Yes Hx Diabetes Mellitus Type 2: Yes - HEMATOLOGICAL/ONCOLOGICAL Hx Blood Disorders: Yes Hx Anemia: Yes - INTEGUMENTARY Hx Dermatological Problems: No - MUSCULOSKELETAL/RHEUMATOLOGICAL Hx Musculoskeletal Disorders: No Hx Falls: No - GASTROINTESTINAL Hx Gastrointestinal Disorders: Yes - GENITOURINARY/GYNECOLOGICAL Hx Genitourinary Disorders: No - PSYCHIATRIC Hx Psychophysiologic Disorder: No Hx Substance Use: No - SURGICAL HISTORY Hx Surgeries: Yes Hx Cholecystectomy: Yes Hx Coronary Artery Bypass Graft: Yes - ANESTHESIA Hx Anesthesia: Yes Hx Anesthesia Reactions: No Hx Malignant Hyperthermia: No Has any member of the family had a problem w/ anesthesia?: No Meds Home Medications: Home Medication List Medication Instructions Recorded Confirmed Type Oxycodone HCl/Acetaminophen 1 each PO Q12 PRN #15 tablet 11/01/17 Rx [Endocet 5-325 Tablet] Allergies/Adverse Reactions: Allergies Allergy/AdvReac Type Severity Reaction Status Date / Time No Known Allergies Allergy Verified 10/29/17 17:34 - Medications Medications: Current Medications Albuterol Sulfate (Albuterol 0.083% Inhal Jacqueline (2.5 Mg/3 Ml) Ud) 2.5 mg INH RQ6 PRN PRN Reason: Shortness of Breath Aspirin (Aspirin Chewable) 81 mg PO DAILY [facility] Last Admin: 11/01/17 14:41 Dose: 81 mg Clopidogrel Bisulfate (Plavix) 75 mg PO DAILY [facility] Last Admin: 11/01/17 14:41 Dose: 75 mg Epoetin Adam (Procrit) 10,000 unit IV TTS [facility] Last Admin: 11/01/17 09:25 Dose: 10,000 unit Glimepiride (Amaryl) 2 mg PO DAILY [facility] Last Admin: 10/30/17 09:37 Dose: 2 mg Heparin Sodium (Porcine) (Heparin) 5,000 units SC Q12H [facility] Last Admin: 11/01/17 22:08 Dose: 5,000 units Heparin Sodium (Porcine) (Heparin) 2,000 units IVP TTS [facility] Last Admin: 11/01/17 09:25 Dose: 2,000 units Insulin Human Regular (Novolin R) 0 unit SC TID [facility] PRN Reason: Protocol Metoprolol Succinate (Toprol Xl) 25 mg PO DAILY [facility] Last Admin: 11/01/17 14:41 Dose: 25 mg Montelukast Sodium (Singulair) 10 mg PO HS [facility] Last Admin: 11/01/17 22:07 Dose: 10 mg Oxycodone/Acetaminophen (Percocet 5/325 Mg Tab) 2 tab PO Q6H PRN PRN Reason: Pain, severe (8-10) Stop: 11/01/17 23:35 Last Admin: 11/01/17 14:41 Dose: 2 tab Pantoprazole Sodium (Protonix Ec Tab) 40 mg PO DAILY [facility] Last Admin: 11/01/17 14:41 Dose: 40 mg Pregabalin (Lyrica) 25 mg PO BID [facility] Last Admin: 11/01/17 17:20 Dose: 25 mg Rosuvastatin Calcium (Crestor) 5 mg PO HS [facility] Last Admin: 11/01/17 22:16 Dose: 5 mg Sucralfate (Carafate Oral Susp) 1 gm PO ACTID [facility] Last Admin: 11/01/17 17:20 Dose: 1 gm Trazodone HCl (Desyrel) 100 mg PO HS [facility] Last Admin: 11/01/17 22:07 Dose: 100 mg Vitamin B Complex/Vit C/Folic Acid (Nephro-Benjamin) 1 tab PO 0800 [facility] Last Admin: 11/01/17 08:41 Dose: 1 tab Results - Vital Signs Recent Vital Signs: Last Vital Signs Temp 98.7 F 11/01/17 16:00 Pulse 85 11/01/17 16:00 Resp 20 11/01/17 16:00 BP 93/53 L 11/01/17 16:00 Pulse Ox 95 11/01/17 16:00 - Labs Result Diagrams: 11/01/17 09:43 11/01/17 09:43 Labs: Laboratory Results - last 24 hr 08/11/01/17 11/01/17 02:12 07:52 09:43 WBC 8.6 RBC 3.26 L Hgb 9.9 L Hct 29.5 L MCV 90.6 MCH 30.5 MCHC 33.7 RDW 16.1 H Plt Count 239 MPV 9.4 Neut % (Auto) 77.4 H Lymph % (Auto) 6.1 L [place] % (Auto) 14.4 H Eos % (Auto) 1.4 Baso % (Auto) 0.7 Neut # (Auto) 6.6 Lymph # (Auto) 0.5 L [place] # (Auto) 1.2 H Eos # (Auto) 0.1 Baso # (Auto) 0.1 Neutrophils % (Manual) 79 H Band Neutrophils % 1 Lymphocytes % (Manual) 7 L Monocytes % (Manual) 11 H Eosinophils % (Manual) 1 Basophils % (Manual) 1 Platelet Estimate Normal Hypochromasia (manual) Slight Anisocytosis (manual) Slight Sodium Potassium Chloride Carbon Dioxide Anion Gap BUN Creatinine Est GFR ( Amer) Est GFR (Non-Af Amer) POC Glucose (mg/dL) 100 90 Random Glucose Uric Acid Calcium Phosphorus Magnesium Total Bilirubin AST ALT Alkaline Phosphatase Total Protein Albumin Globulin Albumin/Globulin Ratio 11/01/17 11/01/17 11/01/17 09:43 11:21 16:36 WBC RBC Hgb Hct MCV MCH MCHC RDW Plt Count MPV Neut % (Auto) Lymph % (Auto) [place] % (Auto) Eos % (Auto) Baso % (Auto) Neut # (Auto) Lymph # (Auto) [place] # (Auto) Eos # (Auto) Baso # (Auto) Neutrophils % (Manual) Band Neutrophils % Lymphocytes % (Manual) Monocytes % (Manual) Eosinophils % (Manual) Basophils % (Manual) Platelet Estimate Hypochromasia (manual) Anisocytosis (manual) Sodium 136 Potassium 6.0 H Chloride 94 L Carbon Dioxide 25 Anion Gap 23 H BUN 60 H Creatinine 9.8 H* D Est GFR ( Amer) 6 Est GFR (Non-Af Amer) 5 POC Glucose (mg/dL) 115 H 143 H Random Glucose 118 H Uric Acid Calcium 9.4 Phosphorus 4.6 H Magnesium 2.2 Total Bilirubin 0.5 AST 16 L ALT 20 L Alkaline Phosphatase 138 H Total Protein 6.9 Albumin 3.7 Globulin 3.2 Albumin/Globulin Ratio 1.2 08/16/18 08/16/18 08/16/18 16:44 18:07 21:25 WBC RBC Hgb Hct MCV MCH MCHC RDW Plt Count MPV Neut % (Auto) Lymph % (Auto) [place] % (Auto) Eos % (Auto) Baso % (Auto) Neut # (Auto) Lymph # (Auto) [place] # (Auto) Eos # (Auto) Baso # (Auto) Neutrophils % (Manual) Band Neutrophils % Lymphocytes % (Manual) Monocytes % (Manual) Eosinophils % (Manual) Basophils % (Manual) Platelet Estimate Hypochromasia (manual) Anisocytosis (manual) Sodium Potassium Chloride Carbon Dioxide Anion Gap BUN Creatinine Est GFR ( Amer) Est GFR (Non-Af Amer) POC Glucose (mg/dL) 141 H 172 H Random Glucose Uric Acid 4.8 Calcium Phosphorus Magnesium Total Bilirubin AST ALT Alkaline Phosphatase Total Protein Albumin Globulin Albumin/Globulin Ratio Assessment & Plan (1) Hypoglycemia associated with diabetes Assessment and Plan: Endocrine consult reason for consult: hypoglycemia in diabetes Source: as per chart review , pt' seen awake alert only to self & place William Richard is 67 y/o admitted for abdominal pain ,s/p CT done showed moderately dilated small bowel loops in LUQ. s/p surgical evaluation and no surgical intervention , pt tolerated diet and having BM pt. with recurrent hypoglycemia as per pt's nurse asymptomatic , was on glimepride which was stopped , ESRD on HD blood glucose log :100-170 ,hypoglycemia 49-60 once 35 fasting on lab result , s/p HD today as per pt.'s nurse he eat 50% of the meal , while eat 100% of family food Allergy NKDA Past medical history:HTN , hyperlipidemia ,CAD Past surgical history: cholecystectomy, Bilroth I. CABG, a-v graft Psychiatry history: (+) psychiatry disorder Social history: occasional smoking , no ETOH use or illicit drug use Family history: irrelevant ROS: Constitutional: no fever, tiredness/weakness. HEENT: no earache, change in voice .Respiratory: no cough, sob . CVS :no chest pain, no palpitations . Abdomen: no abdominal pain, no nausea /vomiting, no change bowel movement. VIRTUAL RECRUITER : no light-headedness, dizziness. Extremities: no edema, no tremors. Skin: no itching, no rash Physical exam Well-developed AAO x2 , ,NAD , blood glucose stat 172 VSS HEENT: norm cephalic, atraumatic, no lid lag , no exophthalmos NECK: supple, no palpable lymphadenopathy THYROID: no palpable thyromegaly, not tender CHEST: fair air entry, bilateral, CVS: S1,S2 ABDOMEN: bowel sound present, benign, obese, no wide purple striae , no bruises EXTREMITIES: no edema, clubbing or cyanosis, no palpable hand tremors Skin: no acanthosis nigricans -lab: reviewed Assessment: sever recurrent asymptomatic hypoglycemia , sulfonyluria induced uncontrolled DM ESRD on HD abdominal pain plan : off Glimpride start Novoloin R low dose coverage with meals if eats > 70% of the meal obtain a1c & TSH plan communicated with nurse in charge Thank you for allowing me to participate in the care of the patient, we will follow with you. Hunter Garcia # [phone] office Fridays & Saturdays address: [address] [place] [address] ,phone # [phone] ,FAX [phone] Status: Acute (2) ESRD (end stage renal disease) on dialysis Status: Acute (3) Abdominal pain Status: Acute (4) Uncontrolled diabetes mellitus Status: Acute
--- NOTE | 2017-11-02 02:44 | PN ---
Copied To: Sd Garcia MD Attending MD: Sd Garcia MD DATE: 11/01/2017 SUBJECTIVE: Today, patient is alert and awake. Has hemodialysis today. Denied any chest pain. No palpitation. No shortness of breath, but patient has blood pressure of . PHYSICAL EXAMINATION: VITAL SIGNS: Tonight, the blood pressure was 93/53, pulse is 85, temperature 98.7. HEENT: Head is normocephalic. NECK: Supple. No JVD. LUNGS: Clear. HEART: Regular rate and rhythm. Positive murmur. ABDOMEN: Soft. There is no tenderness noted to the abdomen and positive bowel sounds. EXTREMITIES: There is no edema. LABORATORY DATA: Today also the patient had some blood tests done. WBC 8.6, hemoglobin 9.9, hematocrit 29.5, and platelet is 239. Chemistry: Sodium 136, potassium is 6 before dialysis, chloride 94, bicarb 25, BUN is 60, creatinine 9.8 and the sugar now is , 141. PLAN: The case was discussed with Gillian Diaz, the nurse practitioner and possibility of discharge today. Sd Garcia MD
[2017-11-02] MEDS ORDERED: Oxycodone/Acetaminophen 5/325 mg Tab PO STA ×2 (04:40→04:57)
[2017-11-02] MEDS: Sucralfate 1 gm/10 ml Oral Susp UD PO SCH ×4 (08:12→16:00)
[2017-11-02] MEDS: Multivitamin Vitamin B Complex (Nephro-Vite) Tab PO SCH (08:12)
[2017-11-02] MEDS: Metoprolol Succinate 25 mg XL Tab PO SCH ×2 (10:02→12:29)
[2017-11-02] MEDS: (Novolin R) Insulin Human Regular 100 units/ml vial SC SCH ×3 (10:02→18:00)
[2017-11-02] MEDS: Pantoprazole 40 mg EC Tab PO SCH (10:02)
--- NOTE | 2017-11-02 10:13 | CP.PCM.PN ---
Subjective - Date & Time of Evaluation Date of Evaluation: 11/02/17 Time of Evaluation: 10:12 - Subjective Subjective: Nephrology Consultation Note: Assessment: stable pain abdomen, missed HD Hypoglycemia esophageal ulcer and gastritis on EGD 10/12/17, SBO Diabetic chronic Kidney Disease (E11.22) Hypertensive Chronic Kidney Disease (I12.0) End stage renal disease (N18.6) dependence on hemodialysis (Z99.2) (MWF) via [facility] Anemia (D64.9), Hyperphosphatemia (E83.39), Secondary Hyperparathyroidism (E21.1 ), HTN (I12.0) CAD s/p CABG, active smoker hx of peptic ulcer disease Plan: Will plan for HD today as MWF schedule as ordered. continue with Nephrovite 1 tab/day. last HB 9.4 hence added HARINDER with HD maintain hemodynamics stable, BP on low side, not on bp meds continue with phos binders as phoslo once stable on diet Glycemic control. avoid glimerpide. can use non-renally excreted sulphonylurea such as glipizide (but not long acting) instead, if needed Further work up/management as per primary team Dose meds/antibiotics for ESRD status. Avoid fleets enema/magnesium based laxatives. GI following continue with PPI Thanks for allowing me to participate in care of your patient. Will follow patient with you. Please call if any Qs. had d/w team Dr Solo Valentino Office: [phone] Reason for consult: ESRD management HPI: Pt is a 67 M with hx of ESRD on hemodialysis (MWF) via [facility] but non- compliant, last dialysis last week @[facility], chronic anemia, hyperphosphatemia, secondary hyperparathyroidism, Diabetes Mellitus, hypertension, CAD s/p CABG, active smoker, hx of partial gastrectomy, SBO and peptic ulcer bleed presented with complaints of worsening abdomen pain and admitted for further management renal consult for ESRD management denies CP/sob/nausea/vomiting ROS: Denies chest pain, palpitation, shortness of breath, leg swelling now. Physical Examination: seen on HD General Appearance: in no acute respiratory distress Vitals reviewed and noted as below Head; Atraumatic, normocephalic Lungs: Normal respiratory rate/effort. Breath sounds bilateral equal and clear Heart: normal rate. s1s2 normal. No rub or gallop. has CABG scar Extremities: no edema. No varicose veins Neurological: Patient is awake alert follows commands, no focal deficit Skin: Warm and dry. Normal turgor. No rash. Palpitation: Normal elasticity for age Abdomen: Abdomen is soft. Bowel sounds +. There is mild epigastric abdominal tenderness, no guarding/rigidity or organomegaly. prior surgical scars+ Labs/imaging reviewed. Past medical history, past surgical history, family history, social history, allergy reviewed and noted as below Family Hx: no hx of CKD. Non contributory Objective - Vital Signs/Intake and Output Vital Signs (last 24 hours): Temp Pulse Resp BP Pulse Ox 98 F 83 18 87/50 L 98 11/02/17 09:30 11/02/17 09:30 11/02/17 09:30 11/02/17 09:44 11/02/17 09:30 Intake and Output: 11/02/17 11/02/17 06:59 18:59 Intake Total 650 Balance 650 - Medications Medications: Current Medications Albuterol Sulfate (Albuterol 0.083% Inhal Jacqueline (2.5 Mg/3 Ml) Ud) 2.5 mg INH RQ6 PRN PRN Reason: Shortness of Breath Aspirin (Aspirin Chewable) 81 mg PO DAILY [facility] Last Admin: 11/02/17 10:01 Dose: Not Given Clopidogrel Bisulfate (Plavix) 75 mg PO DAILY [facility] Last Admin: 11/02/17 10:02 Dose: Not Given Epoetin Adam (Procrit) 10,000 unit IV TTS [facility] Last Admin: 11/01/17 09:25 Dose: 10,000 unit Glimepiride (Amaryl) 2 mg PO DAILY [facility] Last Admin: 10/30/17 09:37 Dose: 2 mg Heparin Sodium (Porcine) (Heparin) 2,000 units IVP TTS [facility] Last Admin: 11/01/17 09:25 Dose: 2,000 units Insulin Human Regular (Novolin R) 0 unit SC TID [facility] PRN Reason: Protocol Last Admin: 11/02/17 10:02 Dose: Not Given Metoprolol Succinate (Toprol Xl) 25 mg PO DAILY [facility] Last Admin: 11/02/17 10:02 Dose: Not Given Montelukast Sodium (Singulair) 10 mg PO HS [facility] Last Admin: 11/01/17 22:07 Dose: 10 mg Pantoprazole Sodium (Protonix Ec Tab) 40 mg PO DAILY [facility] Last Admin: 11/02/17 10:02 Dose: Not Given Pregabalin (Lyrica) 25 mg PO BID [facility] Last Admin: 11/02/17 10:01 Dose: Not Given Rosuvastatin Calcium (Crestor) 5 mg PO [facility] Last Admin: 11/01/17 22:16 Dose: 5 mg Sucralfate (Carafate Oral Susp) 1 gm PO ACTID [facility] Last Admin: 11/02/17 08:12 Dose: 1 gm Trazodone HCl (Desyrel) 100 mg PO HS [facility] Last Admin: 11/01/17 22:07 Dose: 100 mg Vitamin B Complex/Vit C/Folic Acid (Nephro-Benjamin) 1 tab PO 0800 [facility] Last Admin: 11/02/17 08:12 Dose: 1 tab - Labs Labs: 11/01/17 09:43 11/01/17 09:43
[2017-11-02] MEDS ORDERED: Lidocaine 2% MPF (5 ml) Inj ONE ×2 (14:18→14:49)
[2017-11-02] MEDS ORDERED: Sodium Chloride 0.9% 1,000 ML IV SCH (14:30)
--- NOTE | 2017-11-02 14:30 | PN ---
Copied To: Amada Sanders MD Attending MD: Amada Sanders MD DATE: 11/02/2017 LOCATION: 360, bed A. SUBJECTIVE: This is a 67-year-old male seen and examined in rounds without any significant clinical changes or reported chest pain, palpitation, or significant shortness of breath. No chills or fever. The patient still has intermittent period of abdominal pain on and off with mild nausea. The entire chart is reviewed including but not limited to the most recent lab and radiology study results, current and the previous medication list, current and the previous medial events and today's lab showed blood glucose level 116. List of lab results is still pending, but reported previously to have low hemoglobin and hematocrit. PHYSICAL EXAMINATION: GENERAL: A 67-year-old male, awake, alert, oriented. VITAL SIGNS: Afebrile with pulse of 80, respiratory rate 20 to 22 with blood pressure of 94/54. HEENT: Showed pale, dry mucous membrane. Nonicteric sclerae. LUNGS: Few scattered crepitation. Decreased air entry at bases. HEART: Positive S1 and S2. ABDOMEN: Soft with mild generalized tenderness. No mass or organomegaly. No rebound tenderness or guarding. EXTREMITIES: There was mild lower extremity edematous changes. No clubbing or cyanosis. NEUROLOGIC: No reported new neurological deficits, sensory, or motor. IMPRESSION: 1. Anemia, rule out gastrointestinal blood loss versus CHRONIC 03:20 coronary disease. 2. Renal failure, the patient is on hemodialysis. 3. Poorly-controlled diabetes mellitus. 4. Abnormal CAT scan of the abdomen and the pelvis of unclear etiology. 5. Reexacerbation of peptic ulcer disease. SUGGESTION: 1. Continue current management. 2. The patient will need endoscopic evaluation of the GI tract only when he is more stable clinically. 3. Further evaluation to follow and cancer markers to be ordered. Amada Sanders MD
[2017-11-02] MEDS ORDERED: Midazolam 2 MG/2 ML VIAL ONE ×2 (14:48→14:50)
[2017-11-02] MEDS ORDERED: Iodixanol 320 MG/ML 100 ML BOTTLE IV ONE ×2 (14:53→14:56)
[2017-11-02] MEDS: Heparin25000 units/250ml 1/2NS 25,000 UNITS/250 ML BAG IV PRN ×2 (14:56→20:17)
[2017-11-02] MEDS ORDERED: Iodixanol 320 MG/ML 200 ML BOTTLE IV ONE (15:09)
--- NOTE | 2017-11-02 16:02 | PCM.RRT ---
<Nona Kirkland - Last Filed: 11/02/17 16:00> WRAPPER HANDS SPRAYER Nurses Assessment - Situation Date: 11/02/17 Time WRAPPER HANDS SPRAYER was called: 14:02 WRAPPER HANDS SPRAYER Responder Arrival Time:: 14:03 WRAPPER HANDS SPRAYER Location:: 3T Med/Oncology WRAPPER HANDS SPRAYER Reason for Call: Chest Pain WRAPPER HANDS SPRAYER Called By: Physician - IV IV Inserted during WRAPPER HANDS SPRAYER?: Yes IV Fluids Initiated During WRAPPER HANDS SPRAYER?: Normal Saline - Respiratory WRAPPER HANDS SPRAYER Delivery Method: Nasal Cannula @L/min Oxygen Flow Rate: 2 Received Nebulizer Treatments: No Was the Patient Ventilated with Bag/Mask 100% O2?: No Secretions Suctioned?: No Was the Patient Intubated?: No Was the Patient Placed on a Ventilator?: No - Vital Signs Vital Signs: Hr- 95 BP- 113/67 O2- 99% on N.C 2 l - Recommendations 5) WRAPPER HANDS SPRAYER Level of Care Recommendations: transferred to labor contract analyst - Neurological Status (Select all that apply): Alert, Responsive, Oriented, Verbal, Follows Commands. absent: Disoriented, Confused, Lethargic, Aggressive, Weakness - Respiratory Oxygen Delivery Method: Nasal Cannula @L/min - Constitutional Appears: Non-toxic, No Acute Distress - Head Head Exam: NORMAL INSPECTION, NORMOCEPHALIC - Eyes Eye Exam: EOMI, Normal appearance. absent: Nystagmus, Scleral icterus - Respiratory Exam Respiratory Exam: Clear to Ausculation Bilateral, NORMAL BREATHING PATTERN. absent: Rales, Rhonchi, Wheezes - Cardiovascular Exam Cardiovascular Exam: REGULAR RHYTHM, +S1, +S2. absent: Tachycardia - GI/Abdominal Exam GI & Abdominal Exam: Soft, Normal Bowel Sounds. absent: Distended, Firm, Guarding, Rigid, Tenderness - Neurological Exam Neurological Exam: Alert, Awake, Oriented x3 - Extremities Exam Extremities Exam: Normal Inspection Plan - Assessment of Findings&Treatment Plan Patient was seen early on during dialysis for complaints of chest pain. Patient described his chest pain as burning sensation and stated it was because he did not receive his medications. During evaluation it was noted that patient's blood pressure was elevated SBP>170 during dialysis and HR was elevated so his carmela dose of metoprolol was given and aspirin was given. EKG x2 were printed and compared to prior EKG which was given to house doctor by dialysis nurse. After comparison, patient's blood was drawn for troponin levels stat. Patient stated his pain started to decrease after 20 minutes of being given sucrasulfate. Patient denies chest pressure, sob, nausea, vomiting, diaphoresis, or radiation of pain to jaw or left/right upper extremities. Patient's troponin level came back elevated and a conversation was had with PMD by house doctor who suggested he be moved to tele floor and that a consult be placed to sleep manager, Dr. Hebert. Dr. Hebert evaluated patient and called a code heart after reviewing EKG. During the code heart, patient received the following medications in route to labor contract analyst: morphine 2mg IV, plavix 75mg, crestor 20mg, aspirin 325mg, IVF, heparin drip 10, and a heparin bolus. Patient was transferred to cardiac cath where it was found that one of his grafts had closed and he had suffered a true MO. <Yifan Castellanos - Last Filed: 11/02/17 16:18> Attending/Attestation - Attestation I have personally seen and examined this patient.: Yes I have fully participated in the care of the patient.: Yes I have reviewed all pertinent clinical information, including history, physical exam and plan: Yes Notes (Text): 11/02/17 16:14 Hospitalist note: Reviewed the above note by the resident and agree with the above note by resident. Patient had HD and was having chest pain and abdominal pain, troponin showed borederline positive elvation and on the EKG he had very concerning findings for acute MO. He was quickly seen by cardiology and a CODE HEART was called. His blood pressure, HR, and also SpO2 were stable. The patient was still having chest pain and neck pain so morphine 2mg IV was given and this helped him substantially. Orders for heparin bolus was given, then heparin ggt Plavix 300 x 1 ASA He was already on a BB He was taken to cardiac labor contract analyst and will later be going to ICU Yifan Castellanos
--- NOTE | 2017-11-02 16:06 | CP.PCM.CON ---
History of Present Illness - History of Present Illness History of Present Illness: Stoney Masters, PGY1 Cardiology Consult Note for Dr. Ferrell Patient is a 67 y/o M with PMHx of CAD (CABG x2), PUD, ESRD (on HD MWF), DM, and HTN who presented to the ED on 10/30 for intermittent abdominal pain. Patient was admitted for small bowel obstruction. Initial lab results showed stable H/H, BUN 40, Creatinine 7.3 (on HD). CT abd/pelvis showed abnormal liver findings with possible portal vein gas and evidence of splenomegaly as well as dilated small bowel loops. Cardiology and nephrology were consulted. Patient received HD yesterday (11/01) with most recent creatinine 9.8 and was pending HD for today. On 11/02, patient's EKG findings indicated ST elevation inferior wall MN. Patient's troponin levels were significantly elevated at .631. Vitals: HR 95, BP 113/67, SaO2 99% on 2 L NC. Code HEART was called. Patient was immediately taken to the cardiac catheterization lab. As per prior charting: PMHX: CAD (CABGx2), PUD, ESRD (on HD), DM, HTN PSHx: CABGx2 (last CABG was one year ago), laparotomy x2 Meds: Trazadone, Sucralfate, Rosuvastatin, Ropinirole, Lyrica, Singulair, Metoprolol, Reglan, Imdur, ASA/Plavix, Phoslo, Ventolin, Oxycodone/acetaminophen Allergies: NKDA FHX: non contributory Review of Systems - Review of Systems Systems not reviewed;Unavailable: Acuity of Condition Past Patient History - Past Medical History & Family History Past Medical History?: Yes - Past Social History Smoking Status: Current Some Days Smoker - CARDIAC Hx Cardiac Disorders: Yes Hx Congestive Heart Failure: Yes Hx Hypercholesterolemia: Yes Hx Hypertension: Yes - PULMONARY Hx Respiratory Disorders: No - NEUROLOGICAL Hx Neurological Disorder: No - HEENT Hx HEENT Problems: No - RENAL Hx Chronic Kidney Disease: Yes Hx Dialysis: Yes Type of Dialysis Access: Left arm HD access Date of Last Dialysis Treatment: 10/26/17 Hx Kidney Stones: No Hx Neurogenic Bladder: No Hx Pyelonephritis: No Hx Renal (Kidney) Cancer: No Hx Renal Failure: Yes - ENDOCRINE/METABOLIC Hx Endocrine Disorders: Yes Hx Diabetes Mellitus Type 2: Yes - HEMATOLOGICAL/ONCOLOGICAL Hx Blood Disorders: Yes Hx Anemia: Yes - INTEGUMENTARY Hx Dermatological Problems: No - MUSCULOSKELETAL/RHEUMATOLOGICAL Hx Musculoskeletal Disorders: No Hx Falls: No - GASTROINTESTINAL Hx Gastrointestinal Disorders: Yes - GENITOURINARY/GYNECOLOGICAL Hx Genitourinary Disorders: No - PSYCHIATRIC Hx Psychophysiologic Disorder: No Hx Substance Use: No - SURGICAL HISTORY Hx Surgeries: Yes Hx Cholecystectomy: Yes Hx Coronary Artery Bypass Graft: Yes - ANESTHESIA Hx Anesthesia: Yes Hx Anesthesia Reactions: No Hx Malignant Hyperthermia: No Has any member of the family had a problem w/ anesthesia?: No Meds Home Medications: Home Medication List Medication Instructions Recorded Confirmed Type Oxycodone HCl/Acetaminophen 1 each PO Q12 PRN #15 tablet 11/01/17 Rx [Endocet 5-325 Tablet] Allergies/Adverse Reactions: Allergies Allergy/AdvReac Type Severity Reaction Status Date / Time No Known Allergies Allergy Verified 10/29/17 17:34 - Medications Medications: Current Medications Albuterol Sulfate (Albuterol 0.083% Inhal Jacqueline (2.5 Mg/3 Ml) Ud) 2.5 mg INH RQ6 PRN PRN Reason: Shortness of Breath Aspirin (Aspirin Chewable) 81 mg PO DAILY [facility] Last Admin: 11/02/17 12:59 Dose: 81 mg Clopidogrel Bisulfate (Plavix) 75 mg PO DAILY [facility] Last Admin: 11/02/17 10:02 Dose: Not Given Epoetin Adam (Procrit) 10,000 unit IV TTS [facility] Last Admin: 11/01/17 09:25 Dose: 10,000 unit Glimepiride (Amaryl) 2 mg PO DAILY [facility] Last Admin: 10/30/17 09:37 Dose: 2 mg Heparin Sodium (Porcine) (Heparin) 2,000 units IVP TTS [facility] Last Admin: 11/01/17 09:25 Dose: 2,000 units Heparin Sodium/Sodium Chloride (Heparin 92089 Units/250ml 1/2 Normal Saline) 25 ,000 units in 250 mls @ 7.6 mls/hr IV .Q24H PRN; Protocol; 10 UNITS/KG/HR PRN Reason: PROTOCOL Last Admin: 11/02/17 14:56 Dose: 10 units/kg/hr, 7.6 mls/hr Sodium Chloride (Sodium Chloride 0.9%) 1,000 mls @ 100 mls/hr IV .Q10H [facility] Last Admin: 11/02/17 14:53 Dose: 100 mls/hr Insulin Human Regular (Novolin R) 0 unit SC TID [facility] PRN Reason: Protocol Last Admin: 11/02/17 13:28 Dose: Not Given Metoprolol Succinate (Toprol Xl) 25 mg PO DAILY [facility] Last Admin: 11/02/17 12:29 Dose: 25 mg Montelukast Sodium (Singulair) 10 mg PO [facility] Last Admin: 11/01/17 22:07 Dose: 10 mg Pantoprazole Sodium (Protonix Ec Tab) 40 mg PO DAILY [facility] Last Admin: 11/02/17 10:02 Dose: Not Given Pregabalin (Lyrica) 25 mg PO BID [facility] Last Admin: 11/02/17 10:01 Dose: Not Given Rosuvastatin Calcium (Crestor) 5 mg PO [facility] Last Admin: 11/01/17 22:16 Dose: 5 mg Sucralfate (Carafate Oral Susp) 1 gm PO ACTID [facility] Last Admin: 11/02/17 12:44 Dose: 1 gm Trazodone HCl (Desyrel) 100 mg PO [facility] Last Admin: 11/01/17 22:07 Dose: 100 mg Vitamin B Complex/Vit C/Folic Acid (Nephro-Ebnjamin) 1 tab PO 0800 [facility] Last Admin: 11/02/17 08:12 Dose: 1 tab Physical Exam - Constitutional Appears: In Acute Distress Additional comments: Code HEART. Patient immediately transferred to the laboratory technologist. Results - Vital Signs Recent Vital Signs: Last Vital Signs Temp 98 F 11/02/17 09:30 Pulse 83 11/02/17 09:30 Resp 18 11/02/17 09:30 BP 140/63 11/02/17 12:00 Pulse Ox 98 11/02/17 09:30 - Labs Result Diagrams: 11/01/17 09:43 11/01/17 09:43 Labs: Laboratory Results - last 24 hr 11/01/17 11/01/17 11/01/17 16:36 16:44 18:07 POC Glucose (mg/dL) 143 H 141 H Hemoglobin A1c Uric Acid 4.8 Troponin I TSH 3rd Generation 11/01/17 11/02/17 11/02/17 21:25 07:23 08:30 POC Glucose (mg/dL) 172 H 116 H Hemoglobin A1c 5.4 Uric Acid Troponin I TSH 3rd Generation 11/02/17 11/02/17 11/02/17 08:30 11:08 12:36 POC Glucose (mg/dL) 119 H 114 H Hemoglobin A1c Uric Acid Troponin I TSH 3rd Generation 1.77 11/02/17 12:45 POC Glucose (mg/dL) Hemoglobin A1c Uric Acid Troponin I 0.6310 H* TSH 3rd Generation Assessment & Plan - Assessment and Plan (Free Text) Assessment: Patient is a 67 y/o M with PMHx of CAD (CABG x2), PUD, ESRD (on HD MWF), DM, and HTN who presented to the ED on 10/30 for intermittent abdominal pain. Patient was admitted for small bowel obstruction. As per surgery, no intervention was necessary for bowel obstruction. Patient was receiving HD during hospital course (most recent on 11/01). However, on 11/02, patient's EKG findings indicated ST elevation inferior wall MN. Patient's troponin levels were significantly elevated at .631. Vital signs: HR 95, BP 113/67, SaO2 99% on 2 L NC. Code HEART was called. Patient was immediately taken to the cardiac catheterization lab. Plan: ST Elevation inferior wall MN (History of CABG x2) - EKG (11/02): ST elevation inferior leads - troponins (11/02): .631 - Code HEART initiated on 11/02 - Cardiac cath (11/02): Proximal segmental KULKARNI coiled. MISSY/KULKARNI are not harvested. 50% distal left main disease. 65% stenosis at the mid-LAD. Diffuse coronary disease. Severe [place] disease. Stent at the left subclavian. - Transfer to ICU on heparin gtt (patient has bleeding risk due to PUD) - Overall poor prognosis 2/2 significant cardiac history and comorbidities - monitor BP - monitor vitals - monitor access site for hematoma/bleed - c/w post-cath protocol ESRD (on HD, MWF) - Last HD was on 11/01 - Creatinine was 7.3 (10/31), recently 9.8 (11/01) - Patient was planned for HD today on 11/02 prior to Code HEART; expecting worsened renal function s/p cardiac cath, f/u nephro recs for next HD - f/u nephro recs Dispo: Manage patient in the ICU (s/p cardiac cath). Case was discussed and reviewed with Dr. Ferrell. Please see any further recommendations as per Dr. Ferrell.
--- NOTE | 2017-11-02 17:47 | PN ---
Copied To: Christian Hebert MD Attending MD: Christian Hebert MD DATE: 11/02/2017 SUBJECTIVE: I was notified that the patient had chest pain while on hemodialysis. EKG was performed and revealed inferior ST elevation in leads V3 and aVF of 2 [address]-elevation. The patient has completed his hemodialysis and was transferred back to his room. He is still experiencing retrosternal burning sensation. He denies any shortness of breath. PHYSICAL EXAMINATION VITAL SIGNS: Blood pressure 140/63, heart rate 86, temperature 98, and respirations 18. HEENT: Normocephalic. LUNGS: Clear. HEART: S1, S2 regular. No pericardial rub. ABDOMEN: Soft. EXTREMITIES: No edema. LABORATORY DATA: Troponin was 0.631. ASSESSMENT: 1. Chest pain, consider acute inferior myocardial infarction. 2. End stage renal disease, on hemodialysis. 3. History of coronary artery disease, status post coronary artery bypass surgery twice, according to the patient. PLAN: Dr. Ferrell, talent development coordinator was contacted and the patient will be taken to the cardiac laborer chemical processing on urgent basis. The patient has been already on aspirin and Plavix and I did order 5000 units of intravenous heparin as a bolus. Case will be discussed with Dr. Garcia, primary physician. It has been discussed with the hospitalist, Dr. Yifan Castellanos and with AUTO TRAVEL COUNSELOR as well as medical care manager team. Christian Hebert MD
[2017-11-02 18:08] LABS: CK-MB 7.11 ng/mL (0.0-3.38); TROPONIN I 0.495 ng/mL (0.00-0.120)
--- NOTE | 2017-11-02 19:06 | CP.PCM.CON ---
<Samina Younger P - Last Filed: 11/02/17 20:05> History of Present Illness - History of Present Illness History of Present Illness: Critical Care consult note Consult obtained for: s/p CODE HEART and cardiac cath for inferior wall ID Patient is a 67 year old male with a PMH of CAD s/p CABG in 2000, DM, HTN, ESRD on MWF dialysis, hypercholesterolemia, peptic ulcer disease. Patient complained of chest pain during dialysis today. He was evaluated by cardio Dr. Hebert. EKG today showed inferior wall ID (ST elevations in leads V3 and aVF) with elevated troponins. Code Heart was called and cardiac catheterization was performed by Dr. Ferrell, demonstrating occlusion of multiple arteries and previous bypass grafts. No intervention could be performed. Patient was originally admitted 10/29 for epigastric pain x a few days. CT showed moderately dilated small bowel loops in LUQ. However, patient was not clinically obstructed and surgery did not recommend intervention. At present, patient is sleepy and mumbles in response to questions. History obtained via chart review. PMH: CAD, DM, HTN, ESRD on MWF dialysis, hypercholesterolemia PSH: cholecystectomy, CABGx2 (2000, 2016?), [place] [facility] [place]ations: Unable to confirm med list as pharmacy was closed, [facility]: [phone] Trazadone 100mg po hs Carafate 1gm po tid Rosuvastatin 5mg po daily Ropinarole 0.25mg po q12 Lyrica 25mg po daily Singulair 10mg po hs Metoprolol tartrate 25mg po bid Reglan 5mg po ac Imdur 120mg po daily Clopidogrel 75mg po daily Phoslo 667mg po tid Azelastine 1 drop OP bid Ventolin HFA 90mcg/actuation 2 puff IH qid Endocet 5-325 1 each po q12 prn Allergies: NKDA Social Hx: unable to obtain Family Hx: unable to obtain Review of Systems - Review of Systems Systems not reviewed;Unavailable: Uncooperative Past Patient History - Past Medical History & Family History Past Medical History?: Yes - Past Social History Smoking Status: Current Some Days Smoker - CARDIAC Hx Cardiac Disorders: Yes Hx Congestive Heart Failure: Yes Hx Hypercholesterolemia: Yes Hx Hypertension: Yes - PULMONARY Hx Respiratory Disorders: No - NEUROLOGICAL Hx Neurological Disorder: No - HEENT Hx HEENT Problems: No - RENAL Hx Chronic Kidney Disease: Yes Hx Dialysis: Yes Type of Dialysis Access: Left arm HD access Date of Last Dialysis Treatment: 10/26/17 Hx Kidney Stones: No Hx Neurogenic Bladder: No Hx Pyelonephritis: No Hx Renal (Kidney) Cancer: No Hx Renal Failure: Yes - ENDOCRINE/METABOLIC Hx Endocrine Disorders: Yes Hx Diabetes Mellitus Type 2: Yes - HEMATOLOGICAL/ONCOLOGICAL Hx Blood Disorders: Yes Hx Anemia: Yes - INTEGUMENTARY Hx Dermatological Problems: No - MUSCULOSKELETAL/RHEUMATOLOGICAL Hx Musculoskeletal Disorders: No Hx Falls: No - GASTROINTESTINAL Hx Gastrointestinal Disorders: Yes - GENITOURINARY/GYNECOLOGICAL Hx Genitourinary Disorders: No - PSYCHIATRIC Hx Psychophysiologic Disorder: No Hx Substance Use: No - SURGICAL HISTORY Hx Surgeries: Yes Hx Cholecystectomy: Yes Hx Coronary Artery Bypass Graft: Yes - ANESTHESIA Hx Anesthesia: Yes Hx Anesthesia Reactions: No Hx Malignant Hyperthermia: No Has any member of the family had a problem w/ anesthesia?: No Meds Home Medications: Home Medication List Medication Instructions Recorded Confirmed Type Oxycodone HCl/Acetaminophen 1 each PO Q12 PRN #15 tablet 11/01/17 Rx [Endocet 5-325 Tablet] Allergies/Adverse Reactions: Allergies Allergy/AdvReac Type Severity Reaction Status Date / Time No Known Allergies Allergy Verified 10/29/17 17:34 - Medications Medications: Current Medications Albuterol Sulfate (Albuterol 0.083% Inhal Jacqueline (2.5 Mg/3 Ml) Ud) 2.5 mg INH RQ6 PRN PRN Reason: Shortness of Breath Aspirin (Aspirin Chewable) 81 mg PO DAILY [facility] Last Admin: 11/02/17 12:59 Dose: 81 mg Clopidogrel Bisulfate (Plavix) 75 mg PO DAILY [facility] Last Admin: 11/02/17 10:02 Dose: Not Given Epoetin Adam (Procrit) 10,000 unit IV TTS [facility] Last Admin: 11/01/17 09:25 Dose: 10,000 unit Glimepiride (Amaryl) 2 mg PO DAILY [facility] Last Admin: 10/30/17 09:37 Dose: 2 mg Heparin Sodium (Porcine) (Heparin) 2,000 units IVP TTS [facility] Last Admin: 11/01/17 09:25 Dose: 2,000 units Heparin Sodium/Sodium Chloride (Heparin 05522 Units/250ml 1/2 Normal Saline) 25 ,000 units in 250 mls @ 7.6 mls/hr IV .Q24H PRN; Protocol; 10 UNITS/KG/HR PRN Reason: PROTOCOL Last Admin: 11/02/17 14:56 Dose: 10 units/kg/hr, 7.6 mls/hr Sodium Chloride (Sodium Chloride 0.9%) 1,000 mls @ 100 mls/hr IV .Q10H [facility] Last Admin: 11/02/17 14:53 Dose: 100 mls/hr Insulin Human Regular (Novolin R) 0 unit SC TID [facility] PRN Reason: Protocol Last Admin: 11/02/17 13:28 Dose: Not Given Metoprolol Succinate (Toprol Xl) 25 mg PO DAILY [facility] Last Admin: 11/02/17 12:29 Dose: 25 mg Montelukast Sodium (Singulair) 10 mg PO [facility] Last Admin: 11/01/17 22:07 Dose: 10 mg Pantoprazole Sodium (Protonix Ec Tab) 40 mg PO DAILY [facility] Last Admin: 11/02/17 10:02 Dose: Not Given Pregabalin (Lyrica) 25 mg PO BID [facility] Last Admin: 11/02/17 17:00 Dose: Not Given Rosuvastatin Calcium (Crestor) 5 mg PO [facility] Last Admin: 11/01/17 22:16 Dose: 5 mg Sucralfate (Carafate Oral Susp) 1 gm PO ACTID [facility] Last Admin: 11/02/17 16:00 Dose: Not Given Trazodone HCl (Desyrel) 100 mg PO [facility] Last Admin: 11/01/17 22:07 Dose: 100 mg Vitamin B Complex/Vit C/Folic Acid (Nephro-Baldo) 1 tab PO 0800 [facility] Last Admin: 11/02/17 08:12 Dose: 1 tab Physical Exam - Head Exam Head Exam: ATRAUMATIC, NORMOCEPHALIC - Eye Exam Eye Exam: EOMI, PERRL - ENT Exam ENT Exam: Mucous Membranes Dry Additional comments: brown plaque over tongue surface - Neck Exam Neck exam: Positive for: Full Rom, Normal Inspection - Respiratory Exam Respiratory Exam: Clear to Auscultation Bilateral - Cardiovascular Exam Cardiovascular Exam: REGULAR RHYTHM, +S1, +S2 Additional comments: sternotomy scar - GI/Abdominal Exam GI & Abdominal Exam: Normal Bowel Sounds, Soft. absent: Guarding, Rigid, Tenderness - Extremities Exam Extremities exam: Positive for: full ROM. Negative for: joint swelling, pedal edema - Neurological Exam Neurological exam: CN II-XII Intact Additional comments: Somnolent but arousable. Uncooperative with answering questions. 5/5 muscle strength all extremities. - Psychiatric Exam Psychiatric exam: Flat Affect - Skin Skin Exam: Normal Color, Warm Results - Vital Signs Recent Vital Signs: Last Vital Signs Temp 97.8 F 11/02/17 15:50 Pulse 88 11/02/17 18:10 Resp 20 11/02/17 18:10 BP 114/51 L 11/02/17 18:02 Pulse Ox 99 11/02/17 18:10 - Labs Result Diagrams: 11/01/17 09:43 11/01/17 09:43 Labs: Laboratory Results - last 24 hr 11/01/17 11/02/17 11/02/17 21:25 07:23 08:30 POC Glucose (mg/dL) 172 H 116 H Hemoglobin A1c 5.4 Total Creatine Kinase CK-MB (Mass) Troponin I TSH 3rd Generation 11/02/17 11/02/17 11/02/17 08:30 11:08 12:36 POC Glucose (mg/dL) 119 H 114 H Hemoglobin A1c Total Creatine Kinase CK-MB (Mass) Troponin I TSH 3rd Generation 1.77 11/02/17 11/02/17 11/02/17 12:45 16:08 17:27 POC Glucose (mg/dL) 160 H Hemoglobin A1c Total Creatine Kinase 191 H CK-MB (Mass) 7.11 H Troponin I 0.6310 H* 0.4950 H* TSH 3rd Generation Assessment & Plan - Assessment and Plan (Free Text) Plan: Neuro: - patient appears sleepy but mumbles in response to questions - Lyrica 25mg po bid - Trazadone 1 tab po 0800 Cardio: - hx of CAD s/p CABG x 2, HTN, DM, hypercholesterolemia - s/p code heart and cardiac cath 11/02 showing multiple vessel occlusions and occlusions of previous grafts - troponin elevated x 2: 0.6310, 0.4950, downtrending - f/u BOBBY panel + EKGs - Heparin bolus + drip - ASA 81mg po daily - Plavix 75mg po daily - Toprol-XL 25mg po daily - Crestor 5mg po hs - Cardio consult: Dr. Hebert Pulm: - maintain SpO2 > 95% - Albuterol sulfate - Singulair 10mg po hs Renal: - hx of ESRD on dialysis. Continue MWF dialysis. - BUN/Cr on 11/01: 60/9.8 - Procrit - Nephro-baldo - IV NS @ 100cc/hr - Nephro Dr. Valentino consulted Infectious disease: - afebrile - WBC 11/01: normal - MRSA screen: pending Hematology: - H/H 9.9/29.5 - Coags: F/u Endocrine: - Glimepiride 2mg po daily - ISS low dose - Endo Dr. Weaver consulted GI: - renal diet - hx of peptic ulcer disease - Sucralfate 1gm po ACTID - ppx: Protonix 40mg po daily - GI Dr. Urrutia consulted - Surgery Dr. Mohamud was consulted for possible bowel obstruction, however no intervention was recommended. PPX: - VTE: patient is on heparin drip - GI: Protonix 40mg po daily Patient stable for transfer to [facility]. Discussed with Dr. Chelita Lanier. <Yg Lanier - Last Filed: 11/02/17 21:28> Meds - Medications Medications: Current Medications Albuterol Sulfate (Albuterol 0.083% Inhal Jacqueline (2.5 Mg/3 Ml) Ud) 2.5 mg INH RQ6 PRN PRN Reason: Shortness of Breath Aspirin (Aspirin Chewable) 81 mg PO DAILY [facility] Last Admin: 11/02/17 12:59 Dose: 81 mg Clopidogrel Bisulfate (Plavix) 75 mg PO DAILY [facility] Last Admin: 11/02/17 10:02 Dose: Not Given Epoetin Adam (Procrit) 10,000 unit IV TTS [facility] Last Admin: 11/01/17 09:25 Dose: 10,000 unit Glimepiride (Amaryl) 2 mg PO DAILY [facility] Last Admin: 10/30/17 09:37 Dose: 2 mg Heparin Sodium (Porcine) (Heparin) 2,000 units IVP TTS [facility] Last Admin: 11/01/17 09:25 Dose: 2,000 units Heparin Sodium/Sodium Chloride (Heparin 94115 Units/250ml 1/2 Normal Saline) 25 ,000 units in 250 mls @ 7.6 mls/hr IV .Q24H PRN; Protocol; 10 UNITS/KG/HR PRN Reason: PROTOCOL Last Admin: 11/02/17 20:17 Dose: 10 units/kg/hr, 7.6 mls/hr Sodium Chloride (Sodium Chloride 0.9%) 1,000 mls @ 100 mls/hr IV .Q10H [facility] Last Admin: 11/02/17 14:53 Dose: 100 mls/hr Insulin Human Regular (Novolin R) 0 unit SC TID [facility] PRN Reason: Protocol Last Admin: 11/02/17 18:00 Dose: Not Given Metoprolol Succinate (Toprol Xl) 25 mg PO DAILY [facility] Last Admin: 11/02/17 12:29 Dose: 25 mg Montelukast Sodium (Singulair) 10 mg PO [facility] Last Admin: 11/01/17 22:07 Dose: 10 mg Pantoprazole Sodium (Protonix Ec Tab) 40 mg PO DAILY [facility] Last Admin: 11/02/17 10:02 Dose: Not Given Pregabalin (Lyrica) 25 mg PO BID [facility] Last Admin: 11/02/17 17:00 Dose: Not Given Rosuvastatin Calcium (Crestor) 5 mg PO [facility] Last Admin: 11/01/17 22:16 Dose: 5 mg Sucralfate (Carafate Oral Susp) 1 gm PO ACTID [facility] Last Admin: 11/02/17 16:00 Dose: Not Given Trazodone HCl (Desyrel) 100 mg PO [facility] Last Admin: 11/01/17 22:07 Dose: 100 mg Vitamin B Complex/Vit C/Folic Acid (Nephro-Baldo) 1 tab PO 0800 [facility] Last Admin: 11/02/17 08:12 Dose: 1 tab Results - Vital Signs Recent Vital Signs: Last Vital Signs Temp 97.8 F 11/02/17 20:00 Pulse 83 11/02/17 20:20 Resp 18 11/02/17 20:20 BP 101/50 L 11/02/17 20:20 Pulse Ox 100 11/02/17 20:20 - Labs Result Diagrams: 11/01/17 09:43 11/01/17 09:43 Labs: Laboratory Results - last 24 hr 11/01/17 11/02/17 11/02/17 21:25 07:23 08:30 PT INR APTT POC Glucose (mg/dL) 172 H 116 H Hemoglobin A1c 5.4 Total Creatine Kinase CK-MB (Mass) Troponin I TSH 3rd Generation 11/02/17 11/02/17 11/02/17 08:30 11:08 12:36 PT INR APTT POC Glucose (mg/dL) 119 H 114 H Hemoglobin A1c Total Creatine Kinase CK-MB (Mass) Troponin I TSH 3rd Generation 1.77 11/02/17 11/02/17 11/02/17 12:45 16:08 17:27 PT INR APTT POC Glucose (mg/dL) 160 H Hemoglobin A1c Total Creatine Kinase 191 H CK-MB (Mass) 7.11 H Troponin I 0.6310 H* 0.4950 H* TSH 3rd Generation 11/02/17 19:51 PT 12.7 H INR 1.2 APTT 37 H POC Glucose (mg/dL) Hemoglobin A1c Total Creatine Kinase CK-MB (Mass) Troponin I TSH 3rd Generation Assessment & Plan - Assessment and Plan (Free Text) Plan: Above patient seen and examiend at bedside. Patient s/p cardiac cath. -Patient sleeping comfotably. -Above resident documents my clinical findings and management. -Patient joseline - Date & Time Date: 11/02/17 Time: 19:00
[2017-11-02 20:01] LABS: INR 1.2; PROTHROMBIN TIME 12.7 SECONDS (9.7-12.2)
--- NOTE | 2017-11-03 03:07 | CARDCATH ---
Copied To: Cristian Ferrell MD Attending MD: Cristian Ferrell MD PROCEDURE DATE: 11/02/2017 INDICATIONS: William Salmon is a 67-year-old male with history of CAD, CABG, end-stage renal disease on hemodialysis, brought in as an emergent ST-elevation [place] for chest pain and EKG that was done showed ST elevation in inferior leads. The patient was brought emergently for evaluation and treatment. PROCEDURE PERFORMED: Left heart catheterization with selective left and right coronary angiograms via 6-Albanian right femoral arterial access, selective KULKARNI to LAD angiogram, selective MISSY angiogram, left ventriculogram, Mynx closure device for hemostasis. HEMODYNAMIC FINDINGS: Left ventricular end-diastolic pressure was 26 mmHg. There was no gradient noted upon the aortic valve pullback. No AI. No MR. Left ventricular ejection fraction was estimated to be 45% to 50% with anterior apical hypokinesis. CORONARY ANATOMY: Left main large-sized vessel has a distal 50% stenosis at the bifurcation of the circumflex and LAD. Left circumflex has a high-grade proximal 70% stenosis, gives off two medium-sized obtuse marginal branches. Mid left circumflex has a high-grade 95% stenosis. OM1 and OM2 have diffuse 90% stenosis. Left anterior descending artery has a proximal 55% and a mid 70% stenosis, gives off two small-sized diagonal branches and two large septal perforators. Right coronary artery 100% occluded. Fistulous connection between the retro-atrial space and the coronary sinus branch was noted. KULKARNI graft was subsequently injected which showed that the proximal segment of the KULKARNI has coils comparing to the prior angiogram done last year by Dr. Hebert. The KULKARNI at the proximal segment has multiple coils and there was a stent graft noted in the left subclavian extending to the axillary artery. Subsequently, the right internal mammary artery was injected selectively which showed it is nonharvested. No vein graft was identified. 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 All vein grafts occluded. Severe [place] disease. Mild left ventricular systolic dysfunction. RECOMMENDATIONS: The patient needs to be transferred to the ICU. Continue dual antiplatelet therapy. Aggressive medical management for CAD and CHF. The patient is to be followed by Dr. Hebert for further cardiovascular treatment. Cristian Ferrell MD [facility] # [id number]
[2017-11-03 06:46] LABS: BASO % 0.8 % (0.0-2.0); EOS # 0.2 K/uL (0.0-0.7); EOS % 4.4 % (0.0-4.0); HEMOGLOBIN 8.9 g/dL (12.0-18.0); LYMPH # 0.6 K/uL (1.0-4.3); LYMPH % 11.8 % (20.0-40.0); MEAN CELL VOLUME 90.3 fL (80.0-94.0); MEAN CORPUSCULAR HGB CONC 33.3 g/dL (33.0-37.0); MEAN PLATELET VOLUME 9.9 fL (7.2-11.7); MONO # 0.9 K/uL (0.0-0.8); MONO % 17.2 % (0.0-10.0); NEUT # 3.4 K/uL (1.8-7.0); NEUT % 65.8 % (50.0-75.0); RBC 2.96 Mil/uL (4.40-5.90); RED CELL DISTRIBUTION WIDTH 16.2 % (11.5-14.5); WHITE BLOOD COUNT 5.2 K/uL (4.8-10.8)
[2017-11-03 07:20] LABS: ALB/GLOB RATIO 1.2 (1.0-2.1); ALBUMIN 3.5 g/dL (3.5-5.0); CALCIUM 9.7 mg/dl (8.6-10.4)
[2017-11-03] MEDS: Sucralfate 1 gm/10 ml Oral Susp UD PO SCH ×3 (08:01→17:28)
[2017-11-03] MEDS: Multivitamin Vitamin B Complex (Nephro-Vite) Tab PO SCH (08:01)
[2017-11-03] MEDS: Metoprolol Succinate 25 mg XL Tab PO SCH (09:25)
[2017-11-03] MEDS: Pantoprazole 40 mg EC Tab PO SCH (09:25)
[2017-11-03] MEDS: Epoetin Alfa 10,000 unit/ml Dialysis IV SCH (11:27)
--- NOTE | 2017-11-03 12:48 | PN ---
Copied To: Amada Sanders MD Attending MD: Amada Sanders MD DATE: 11/03/2017 LOCATION: ICU 12. SUBJECTIVE: This is a 67-year-old male seen and examined early in rounds today in the intensive care unit with status post cardiac cath, appeared to be awake, alert and oriented with mild intermittent period of abdominal pain, but no actual chest pain, dizziness or active bleeding or significant chills or fever. The entire chart is reviewed including but not limited to the most recent lab and radiology study results, current and the previous medication list, current and the previous medical events and today's lab showed normal white blood cells, but subsequent drop of hemoglobin to 8.9, hematocrit 26.8 with normal platelet count with PT of 12.7, PTT 42, BUN of 33, creatinine 6.2. Blood glucose level 115, phosphorus 5.3 with magnesium 2.4, and the patient had elevated troponin level before the cardiac cath. Official report of cardiac cath results still pending. PHYSICAL EXAMINATION: GENERAL: A 67-year-old male. VITAL SIGNS: Afebrile with pulse of 80, respiratory rate 20 to 24, blood pressure 110/56. HEENT: Showed pale, dry oral mucous membrane. Nonicteric sclerae. LUNGS: Few scattered crepitation. Decreased air entry at bases. HEART: Positive S1 and S2. ABDOMEN: Soft with mild generalized tenderness. No mass or organomegaly. No rebound tenderness or guarding. Clean dressing on top of the site of the groin of the cardiac cath seen. EXTREMITIES: With slight lower extremity edematous changes. No clubbing or cyanosis. NEUROLOGIC: No reported new neurological deficits, sensory. IMPRESSION: 1. Anemia that could be secondary to chronic disease versus gastrointestinal blood loss. 2. Status post cardiac catheterization, found to be abnormal. 3. Renal failure, on hemodialysis. 4. Poorly-controlled diabetes mellitus. 5. Re-exacerbation of peptic ulcer disease. 6. Abnormal CAT scan of the abdomen and pelvis. SUGGESTIONS: 1. Continue current management. 2. Guaiac all the stools every day x3. 3. Follow up in cancer marker. 4. No aggressive GI workup as the patient just had cardiac cath. Further recommendation to follow. Amada Sanders MD [facility] # [id number]
[2017-11-03] MEDS ORDERED: Heparin25000 units/250ml 1/2NS 25,000 UNITS/250 ML BAG IV PRN ×2 (13:00→14:00)
[2017-11-03] MEDS: (Novolin R) Insulin Human Regular 100 units/ml vial SC SCH ×3 (13:16→22:30)
[2017-11-03] MEDS: Oxycodone/Acetaminophen 5/325 mg Tab PO PRN ×2 (13:17→17:30)
--- NOTE | 2017-11-03 13:26 | CP.PCM.PN ---
Subjective - Date & Time of Evaluation Date of Evaluation: 11/03/17 Time of Evaluation: 13:22 - Subjective Subjective: Nephrology Consultation Note: Assessment: stable pain abdomen, missed HD Hypoglycemia esophageal ulcer and gastritis on EGD 10/12/17, SBO Diabetic chronic Kidney Disease (E11.22) Hypertensive Chronic Kidney Disease (I12.0) End stage renal disease (N18.6) dependence on hemodialysis (Z99.2) (MWF) via AVG Anemia (D64.9), Hyperphosphatemia (E83.39), Secondary Hyperparathyroidism (E21.1 ), HTN (I12.0) CAD s/p CABG, active smoker hx of peptic ulcer disease code heart/cad Plan: recommended to pt for anothe HD tx today p his cath yesterday currently refusing. 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 Breath sounds bilateral equal and clear Heart: normal rate. s1s2 normal. No rub or gallop. has CABG scar Extremities: no edema. No varicose veins Neurological: Patient is awake alert follows commands, no focal deficit Skin: Warm and dry. Normal turgor. No rash. Palpitation: Normal elasticity for age Abdomen: Abdomen is soft. Bowel sounds +. There is mild epigastric abdominal tenderness, no guarding/rigidity or organomegaly. prior surgical scars+ psych: nml affect sclera: anicteri neck: supple no thyomegaly Labs/imaging reviewed. Past medical history, past surgical history, family history, social history, allergy reviewed and noted as below Family Hx: no hx of CKD. Non contributory Objective - Vital Signs/Intake and Output Vital Signs (last 24 hours): Temp Pulse Resp BP Pulse Ox 98.4 F 87 20 130/65 98 11/03/17 10:03 11/03/17 10:03 11/03/17 10:03 11/03/17 10:03 11/03/17 10:03 Intake and Output: 11/03/17 11/03/17 06:59 18:59 Intake Total 307 Balance 307 - Medications Medications: Current Medications Albuterol Sulfate (Albuterol 0.083% Inhal Jacqueline (2.5 Mg/3 Ml) Ud) 2.5 mg INH RQ6 PRN PRN Reason: Shortness of Breath Aspirin (Aspirin Chewable) 81 mg PO DAILY [facility] Last Admin: 11/03/17 09:25 Dose: 81 mg Clopidogrel Bisulfate (Plavix) 75 mg PO DAILY [facility] Last Admin: 11/03/17 09:25 Dose: 75 mg Epoetin Adam (Procrit) 10,000 unit IV TTS [facility] Last Admin: 11/03/17 11:27 Dose: Not Given Glimepiride (Amaryl) 2 mg PO DAILY [facility] Last Admin: 10/30/17 09:37 Dose: 2 mg Heparin Sodium (Porcine) (Heparin) 2,000 units IVP TTS [facility] Last Admin: 11/03/17 11:28 Dose: Not Given Heparin Sodium/Sodium Chloride (Heparin 60111 Units/250ml 1/2 Normal Saline) 25 ,000 units in 250 mls @ 10.64 mls/hr IV .[id number] PRN; Protocol; 14 UNITS/KG/HR PRN Reason: PROTOCOL Insulin Human Regular (Novolin R) 0 unit SC [facility] PRN Reason: Protocol Last Admin: 11/03/17 13:16 Dose: Not Given Metoprolol Succinate (Toprol Xl) 25 mg PO DAILY [facility] Last Admin: 11/03/17 09:25 Dose: 25 mg Montelukast Sodium (Singulair) 10 mg PO HS [facility] Last Admin: 11/02/17 22:04 Dose: 10 mg Oxycodone/Acetaminophen (Percocet 5/325 Mg Tab) 1 tab PO Q4H PRN PRN Reason: Pain, moderate (4-7) Stop: 11/06/17 12:53 Last Admin: 11/03/17 13:17 Dose: 1 tab Pantoprazole Sodium (Protonix Ec Tab) 40 mg PO DAILY [facility] Last Admin: 11/03/17 09:25 Dose: 40 mg Pregabalin (Lyrica) 25 mg PO BID [facility] Last Admin: 11/03/17 09:25 Dose: 25 mg Rosuvastatin Calcium (Crestor) 5 mg PO HS [facility] Last Admin: 11/02/17 22:04 Dose: 5 mg Sucralfate (Carafate Oral Susp) 1 gm PO ACTID [facility] Last Admin: 11/03/17 12:47 Dose: 1 gm Trazodone HCl (Desyrel) 100 mg PO [facility] Last Admin: 11/02/17 22:04 Dose: 100 mg Vitamin B Complex/Vit C/Folic Acid (Nephro-Benjamin) 1 tab PO 0800 [facility] Last Admin: 11/03/17 08:01 Dose: 1 tab - Labs Labs: 11/03/17 06:35 11/03/17 06:29 PT 12.7 SECONDS (9.7-12.2) H 11/02/17 19:51 INR 1.2 11/02/17 19:51 APTT 28 SECONDS (21-34) D 11/03/17 11:38
--- NOTE | 2017-11-03 18:35 | PN ---
Copied To: Christian Hebert MD Attending MD: Christian Hebert MD DATE: 11/03/2017 SUBJECTIVE: The patient underwent cardiac catheterization yesterday by Dr. Ferrell and compared to the previous cardiac catheterization by ar last year. Last year, the patient was found to have distal left main disease without any vascularization of the left coronary circulation and the KULKARNI was not harvested. The patient at that time had patent SVG to the distal RCA. On yesterday's cardiac catheterization, that saphenous vein graft to the RCA was completely occluded, and the KULKARNI vessel itself was coiled and occluded as part of the patient's recent left subclavian stenting. The patient was placed on intravenous heparin and was transferred to the ICU and then to the telemetry today. The patient denies any chest pain and no reported groin bleeding. He complains of bilateral foot pain. PHYSICAL EXAMINATION: VITAL SIGNS: Blood pressure 130/65, heart rate 87, temperature 98.4, respirations 20. HEENT: Pale conjunctivae. CHEST: Clear. HEART: S1, S2 regular. EXTREMITIES: No edema. No hematoma. Absent dorsalis pedis pulse. LABORATORY DATA: Today's hemoglobin and hematocrit 8.9 and 26.8. White count and platelet count are within normal limit. Today's SMA-7: Sodium 141, potassium 5, chloride 98, CO2 of 27, glucose 115, BUN 33, creatinine 6.2. The most recent troponin from yesterday 0.631 and 0.495. ASSESSMENT: 1. Consider recent acute inferior wall myocardial infarction with minimal troponin elevation. Cardiac catheterization documented total occlusion of the saphenous vein graft to the distal right coronary artery. 2. Rule out pericarditis. 3. End-stage renal disease, on hemodialysis. 4. Rule out peripheral vascular disease. RECOMMENDATIONS: Continue aspirin 81 mg once a day, Crestor 5 mg once a day, intravenous heparin in a therapeutic regimen, continue Plavix 75 mg once a day, Toprol-XL 25 mg once a day. Start Percocet at one tablet now and every 4 hours p.r.n. Obtain arterial Doppler of both lower extremities and obtain 12-lead EKG today. Case was discussed at length with Dr. Ferrell. The patient is not a suitable candidate for coronary artery bypass surgery, and the case was also discussed with Dr. Garcia yesterday, who pointed that the patient had recent coronary artery bypass surgery at [facility], and I did request a copy of that report. Christian Hebert MD
[2017-11-03 20:51] LABS: INR 1.1
[2017-11-03 21:07] LABS: CK-MB 15.5 ng/mL (0.0-3.38); TROPONIN I 3.57 ng/mL (0.00-0.120)
[2017-11-03] MEDS: Heparin25000 units/250ml 1/2NS 25,000 UNITS/250 ML BAG IV PRN (21:41)
[2017-11-04] MEDS: Oxycodone/Acetaminophen 5/325 mg Tab PO PRN ×4 (02:18→21:22)
[2017-11-04 03:45] LABS: BASO % 0.5 % (0.0-2.0); EOS # 0.2 K/uL (0.0-0.7); EOS % 3.3 % (0.0-4.0); HEMOGLOBIN 8.8 g/dL (12.0-18.0); LYMPH # 0.6 K/uL (1.0-4.3); MEAN CELL VOLUME 89.6 fL (80.0-94.0); MEAN CORPUSCULAR HEMOGLOBIN 29.6 pg (27.0-31.0); MEAN CORPUSCULAR HGB CONC 33.1 g/dL (33.0-37.0); MEAN PLATELET VOLUME 9.3 fL (7.2-11.7); MONO # 0.8 K/uL (0.0-0.8); MONO % 14.5 % (0.0-10.0); NEUT # 4.1 K/uL (1.8-7.0); NEUT % 71.7 % (50.0-75.0); RBC 2.97 Mil/uL (4.40-5.90); RED CELL DISTRIBUTION WIDTH 16.2 % (11.5-14.5); WHITE BLOOD COUNT 5.7 K/uL (4.8-10.8)
[2017-11-04 04:09] LABS: ALB/GLOB RATIO 1.2 (1.0-2.1); ALBUMIN 3.4 g/dL (3.5-5.0); CALCIUM 9.7 mg/dl (8.6-10.4)
[2017-11-04] MEDS: Sucralfate 1 gm/10 ml Oral Susp UD PO SCH ×2 (06:50→12:32)
[2017-11-04] MEDS: (Novolin R) Insulin Human Regular 100 units/ml vial SC SCH ×3 (07:42→18:23)
[2017-11-04] MEDS: Multivitamin Vitamin B Complex (Nephro-Vite) Tab PO SCH (08:33)
[2017-11-04] MEDS: Pantoprazole 40 mg EC Tab PO SCH (10:38)
[2017-11-04] MEDS: Metoprolol Succinate 25 mg XL Tab PO SCH (10:39)
--- NOTE | 2017-11-04 12:48 | PN ---
Copied To: Amada Sandres MD Attending MD: Amada Sanders MD DATE: 11/04/2017 LOCATION: 564, bed A. SUBJECTIVE: This is a 67-year-old male seen and examined in rounds without significant clinical changes or reported active bleeding. On heparin drip, without reported significant clinical presentation. No actual chest pain, palpitation, or evidence of active bleeding. Today's lab showed hemoglobin of 8.8, hematocrit 36.6. PTT is 59 due to heparin drip, with BUN of 45, creatinine 0.8, glucose 129, with magnesium of 2.4, with persistent elevated total troponin level, but low albumin of 3.4. The patient is status post cardiac cath procedure. PHYSICAL EXAMINATION: GENERAL: A 67-year-old male. VITAL SIGNS: Afebrile, with pulse of 86, respiratory rate 20 to 22, blood pressure 130/66. HEENT: Mildly pale, dry oral mucous membranes. Nonicteric sclerae. LUNGS: Few scattered crepitation. Decreased air entry at bases. HEART: Positive S1 and S2. ABDOMEN: Soft. Bowel sounds are present, with mild generalized tenderness. The patient experienced episodes of nausea during my physical examination. EXTREMITIES: Without significant clubbing, cyanosis, or edema. NEUROLOGIC: No reported new neurological deficits, sensory or motor. IMPRESSION: 1. Anemia, most likely secondary to chronic disease. 2. End-stage renal disease. 3. Re-exacerbation of peptic ulcer disease. 4. Abnormal CAT scan of the abdomen and the pelvis. 5. Poorly controlled diabetes mellitus. 6. Abnormal CAT scan test as per the patient's report with evidence of coronary artery disease. SUGGESTIONS: 1. Continue current management. 2. Repeat stool for occult blood. 3. Adjust oral intake with no citrus, no seeds. Further recommendation to follow. Amada Sanders MD
--- NOTE | 2017-11-04 15:08 | CP.PCM.PN ---
Subjective - Date & Time of Evaluation Date of Evaluation: 11/04/17 Time of Evaluation: 15:00 - Subjective Subjective: hypoglycemia in diabetes with ESRD on HD Objective - Vital Signs/Intake and Output Vital Signs (last 24 hours): Temp Pulse Resp BP Pulse Ox 99.0 F 81 20 115/60 97 11/04/17 07:54 11/04/17 10:14 11/04/17 07:54 11/04/17 10:14 11/04/17 07:54 Intake and Output: 11/04/17 11/04/17 06:59 18:59 Output Total 600 Balance -600 - Medications Medications: Current Medications Aspirin (Aspirin Chewable) 81 mg PO DAILY [facility] Last Admin: 11/04/17 10:38 Dose: 81 mg Calcium Acetate (Phoslo) 667 mg PO TIDCC [facility] Last Admin: 11/04/17 13:03 Dose: 667 mg Clopidogrel Bisulfate (Plavix) 75 mg PO DAILY [facility] Last Admin: 11/04/17 10:38 Dose: 75 mg Epoetin Adam (Procrit) 10,000 unit IV TTS [facility] Last Admin: 11/03/17 11:27 Dose: Not Given Glimepiride (Amaryl) 2 mg PO DAILY [facility] Last Admin: 10/30/17 09:37 Dose: 2 mg Heparin Sodium/Sodium Chloride (Heparin 20277 Units/250ml 1/2 Normal Saline) 25 ,000 units in 250 mls @ 13.68 mls/hr IV .[id number] PRN; Protocol; 18 UNITS/KG/HR PRN Reason: PROTOCOL Last Admin: 11/03/17 21:41 Dose: 18 units/kg/hr, 13.68 mls/hr Insulin Human Regular (Novolin R) 0 unit SC [facility] PRN Reason: Protocol Last Admin: 11/04/17 12:27 Dose: Not Given Metoprolol Succinate (Toprol Xl) 25 mg PO DAILY [facility] Montelukast Sodium (Singulair) 10 mg PO HS [facility] Last Admin: 11/03/17 21:50 Dose: 10 mg Oxycodone/Acetaminophen (Percocet 5/325 Mg Tab) 1 tab PO Q4H PRN PRN Reason: Pain, moderate (4-7) Stop: 11/06/17 12:53 Last Admin: 11/04/17 08:35 Dose: 1 tab Pantoprazole Sodium (Protonix Ec Tab) 40 mg PO DAILY [facility] Last Admin: 11/04/17 10:38 Dose: 40 mg Pregabalin (Lyrica) 25 mg PO BID [facility] Last Admin: 11/04/17 10:38 Dose: 25 mg Rosuvastatin Calcium (Crestor) 5 mg PO [facility] Last Admin: 11/03/17 21:50 Dose: 5 mg Sucralfate (Carafate Oral Susp) 1 gm PO ACTID [facility] Last Admin: 11/04/17 12:32 Dose: Not Given Trazodone HCl (Desyrel) 100 mg PO [facility] Last Admin: 11/03/17 21:50 Dose: 100 mg Vitamin B Complex/Vit C/Folic Acid (Nephro-Benjamin) 1 tab PO 0800 [facility] Last Admin: 11/04/17 08:33 Dose: 1 tab - Labs Labs: 11/04/17 03:40 11/04/17 03:40 PT 12.0 SECONDS (9.7-12.2) 11/03/17 20:32 INR 1.1 11/03/17 20:32 APTT 48 SECONDS (21-34) H D 11/04/17 10:56 Assessment and Plan (1) Hypoglycemia associated with diabetes Assessment & Plan: 1) Hypoglycemia associated with diabetes Assessment and Plan: Endocrine consult F/U for hypoglycemia William Richard is 67 y/o admitted for abdominal pain ,s/p CT done showed moderately dilated small bowel loops in LUQ. s/p surgical evaluation and no surgical intervention , pt tolerated diet and having BM pt. with recurrent hypoglycemia as per pt's nurse asymptomatic , was on glimepride which was stopped , ESRD on HD s/p ICU admission for chest pain /elevated troponin s/p cardiac cath yesterday & transfered back to floor yesterday blood glucose log :130-140 , no hypoglycemia as per pt.'s nurse still with poor intake Allergy NKDA Past medical history:HTN , hyperlipidemia ,CAD Past surgical history: cholecystectomy, Bilroth I. CABG, a-v graft Psychiatry history: (+) psychiatry disorder Social history: occasional smoking , no ETOH use or illicit drug use Family history: irrelevant ROS: Constitutional: no fever, tiredness/weakness. HEENT: no earache, change in voice .Respiratory: no cough, sob . CVS :no chest pain, no palpitations . Abdomen: no abdominal pain, no nausea /vomiting, no change bowel movement. KENNEL HAND : no light-headedness, dizziness. Extremities: no edema, no tremors. Skin: no itching, no rash Physical exam Well-developed Awake & alert ,NAD S HEENT: norm cephalic, atraumatic, no lid lag , no exophthalmos NECK: supple, no palpable lymphadenopathy THYROID: no palpable thyromegaly, not tender CHEST: fair air entry, bilateral, CVS: S1,S2 ABDOMEN: bowel sound present, benign, obese, no wide purple striae , no bruises EXTREMITIES: no edema, clubbing or cyanosis, no palpable hand tremors Skin: no acanthosis nigricans -lab: hba1c 5.4 , TSH 1.77 , TG 145 Assessment: sever recurrent asymptomatic hypoglycemia , sulfonyluria induced , resolved uncontrolled DM ESRD on HD abdominal pain chest pain s/p cath plan : decrease Novoloin R low dose coverage start > 200 with meals if eats > 70% of the meal t/c start trajenta 5 mg po qd with breakfast we will follow with you. Hunter Garcia # [phone] office Fridays & Saturdays address: [address] [place] [address] ,phone # [phone] ,FAX [phone] Status: Acute (2) ESRD (end stage renal disease) on dialysis Status: Acute (3) Abdominal pain Status: Acute (4) Uncontrolled diabetes mellitus Status: Acute (5) Chest pain Status: Acute
[2017-11-04] MEDS: Heparin25000 units/250ml 1/2NS 25,000 UNITS/250 ML BAG IV PRN (15:10)
--- NOTE | 2017-11-04 19:59 | CP.PCM.CON ---
History of Present Illness - History of Present Illness History of Present Illness: Podiatry Consult Note for Dr. Dobson: 67 yo male patient, with PMHx of DM, HTN, ESRD, CAD, seen and evaluated at bedside for b/l heel pain. Patient states that the pain has been on and off for over a year. The pain is worse when he walks and is sharp in nature. While he lays in bed he feels tingling to his feet. Patient denies any trauma to the area. Patient denies any other pedal complaints. Patient denies N/V/F/SOB. PMHx: DM, HTN, ESRD, CAD ALL: NKDA Social hx: tobacco use Review of Systems - Review of Systems Review of Systems: As per HPI Past Patient History - Past Medical History & Family History Past Medical History?: Yes - Past Social History Smoking Status: Current Some Days Smoker - CARDIAC Hx Cardiac Disorders: Yes Hx Congestive Heart Failure: Yes Hx Hypercholesterolemia: Yes Hx Hypertension: Yes - PULMONARY Hx Respiratory Disorders: No - NEUROLOGICAL Hx Neurological Disorder: No - HEENT Hx HEENT Problems: No - RENAL Hx Chronic Kidney Disease: Yes Hx Dialysis: Yes Type of Dialysis Access: Left arm HD access Date of Last Dialysis Treatment: 10/26/17 Hx Kidney Stones: No Hx Neurogenic Bladder: No Hx Pyelonephritis: No Hx Renal (Kidney) Cancer: No Hx Renal Failure: Yes - ENDOCRINE/METABOLIC Hx Endocrine Disorders: Yes Hx Diabetes Mellitus Type 2: Yes - HEMATOLOGICAL/ONCOLOGICAL Hx Blood Disorders: Yes Hx Anemia: Yes - INTEGUMENTARY Hx Dermatological Problems: No - MUSCULOSKELETAL/RHEUMATOLOGICAL Hx Musculoskeletal Disorders: No Hx Falls: No - GASTROINTESTINAL Hx Gastrointestinal Disorders: Yes - GENITOURINARY/GYNECOLOGICAL Hx Genitourinary Disorders: No - PSYCHIATRIC Hx Psychophysiologic Disorder: No Hx Substance Use: No - SURGICAL HISTORY Hx Surgeries: Yes Hx Cholecystectomy: Yes Hx Coronary Artery Bypass Graft: Yes - ANESTHESIA Hx Anesthesia: Yes Hx Anesthesia Reactions: No Hx Malignant Hyperthermia: No Has any member of the family had a problem w/ anesthesia?: No Meds Home Medications: Home Medication List Medication Instructions Recorded Confirmed Type Oxycodone HCl/Acetaminophen 1 each PO Q12 PRN #15 tablet 11/01/17 Rx [Endocet 5-325 Tablet] Allergies/Adverse Reactions: Allergies Allergy/AdvReac Type Severity Reaction Status Date / Time No Known Allergies Allergy Verified 10/29/17 17:34 - Medications Medications: Current Medications Aspirin (Aspirin Chewable) 81 mg PO DAILY [facility] Last Admin: 11/04/17 10:38 Dose: 81 mg Calcium Acetate (Phoslo) 667 mg PO TIDCC [facility] Last Admin: 11/04/17 18:00 Dose: 667 mg Clopidogrel Bisulfate (Plavix) 75 mg PO DAILY [facility] Last Admin: 11/04/17 10:38 Dose: 75 mg Epoetin Adam (Procrit) 10,000 unit IV TTS [facility] Last Admin: 11/03/17 11:27 Dose: Not Given Glimepiride (Amaryl) 2 mg PO DAILY [facility] Last Admin: 10/30/17 09:37 Dose: 2 mg Heparin Sodium/Sodium Chloride (Heparin 74586 Units/250ml 1/2 Normal Saline) 25 ,000 units in 250 mls @ 13.68 mls/hr IV .[id number] PRN; Protocol; 18 UNITS/KG/HR PRN Reason: PROTOCOL Last Admin: 11/04/17 15:10 Dose: 18 units/kg/hr, 13.68 mls/hr Insulin Human Regular (Novolin R) 0 unit SC TIDPC [facility] PRN Reason: Protocol Last Admin: 11/04/17 18:23 Dose: Not Given Lidocaine (Lidoderm) 1 ea TD DAILY [facility] Metoprolol Succinate (Toprol Xl) 25 mg PO DAILY [facility] Montelukast Sodium (Singulair) 10 mg PO HS [facility] Last Admin: 11/03/17 21:50 Dose: 10 mg Oxycodone/Acetaminophen (Percocet 5/325 Mg Tab) 1 tab PO Q4H PRN PRN Reason: Pain, moderate (4-7) Stop: 11/06/17 12:53 Last Admin: 11/04/17 15:08 Dose: 1 tab Pantoprazole Sodium (Protonix Ec Tab) 40 mg PO DAILY [facility] Last Admin: 11/04/17 10:38 Dose: 40 mg Pregabalin (Lyrica) 25 mg PO BID [facility] Last Admin: 11/04/17 18:24 Dose: 25 mg Rosuvastatin Calcium (Crestor) 5 mg PO HS [facility] Last Admin: 11/03/17 21:50 Dose: 5 mg Trazodone HCl (Desyrel) 100 mg PO HS [facility] Last Admin: 11/03/17 21:50 Dose: 100 mg Vitamin B Complex/Vit C/Folic Acid (Nephro-Benjamin) 1 tab PO 0800 [facility] Last Admin: 11/04/17 08:33 Dose: 1 tab Physical Exam - Constitutional Appears: Well, Non-toxic, No Acute Distress - Head Exam Head Exam: ATRAUMATIC - Extremities Exam Additional comments: Vascular: DP 2/4, PT 1/4 bilaterally, CFT < 3 seconds to all digits, no edema noted, TG warm to warm Ortho: Pain upon palpation of bilateral medial calcaneal tubercle. MMT 4/5 bilaterally to all compartments, no pain upon calf compression bilaterally Neuro: Gross sensation intact, protective sensation diminished Derm: No open lesions, no erythema, no cellulitis, no streaking, no fluctuance, no clinical signs of infection to b/l feet. Elongated dystrophic nails x10. - Neurological Exam Neurological exam: Alert, Oriented x3 - Psychiatric Exam Psychiatric exam: Normal Affect, Normal Mood Results - Vital Signs Recent Vital Signs: Last Vital Signs Temp 98.7 F 11/04/17 16:51 Pulse 78 11/04/17 16:51 Resp 20 11/04/17 16:51 BP 124/65 11/04/17 16:51 Pulse Ox 97 11/04/17 16:51 - Labs Result Diagrams: 11/04/17 03:40 11/04/17 03:40 Labs: Laboratory Results - last 24 hr 11/03/17 11/03/17 11/03/17 20:32 20:32 21:12 WBC RBC Hgb Hct MCV MCH MCHC RDW Plt Count MPV Neut % (Auto) Lymph % (Auto) Clinch % (Auto) Eos % (Auto) Baso % (Auto) Neut # (Auto) Lymph # (Auto) Clinch # (Auto) Eos # (Auto) Baso # (Auto) PT 12.0 INR 1.1 APTT 39 H D Sodium Potassium Chloride Carbon Dioxide Anion Gap BUN Creatinine Est GFR ( Amer) Est GFR (Non-Af Amer) Random Glucose Calcium Phosphorus Magnesium Total Bilirubin AST ALT Alkaline Phosphatase Total Creatine Kinase 150 CK-MB (Mass) 15.5 H Troponin I 3.5700 H* Total Protein Albumin Globulin Albumin/Globulin Ratio 11/04/17 11/04/17 11/04/17 03:40 03:40 03:40 WBC 5.7 RBC 2.97 L Hgb 8.8 L Hct 26.6 L MCV 89.6 MCH 29.6 MCHC 33.1 RDW 16.2 H Plt Count 258 MPV 9.3 Neut % (Auto) 71.7 Lymph % (Auto) 10.0 L Clinch % (Auto) 14.5 H Eos % (Auto) 3.3 Baso % (Auto) 0.5 Neut # (Auto) 4.1 Lymph # (Auto) 0.6 L Clinch # (Auto) 0.8 Eos # (Auto) 0.2 Baso # (Auto) 0.0 PT INR APTT Sodium 138 Potassium 5.1 Chloride 98 Carbon Dioxide 27 Anion Gap 18 BUN 45 H Creatinine 8.0 H* D Est GFR ( Amer) 8 Est GFR (Non-Af Amer) 7 Random Glucose 129 H Calcium 9.7 Phosphorus 4.3 Magnesium 2.4 H Total Bilirubin 0.3 AST 41 ALT 37 Alkaline Phosphatase 144 H Total Creatine Kinase CK-MB (Mass) Troponin I 4.7300 H* Total Protein 6.4 Albumin 3.4 L Globulin 2.9 Albumin/Globulin Ratio 1.2 11/04/17 11/04/17 03:40 10:56 WBC RBC Hgb Hct MCV MCH MCHC RDW Plt Count MPV Neut % (Auto) Lymph % (Auto) Clinch % (Auto) Eos % (Auto) Baso % (Auto) Neut # (Auto) Lymph # (Auto) Clinch # (Auto) Eos # (Auto) Baso # (Auto) PT INR APTT 59 H D 48 H D Sodium Potassium Chloride Carbon Dioxide Anion Gap BUN Creatinine Est GFR ( Amer) Est GFR (Non-Af Amer) Random Glucose Calcium Phosphorus Magnesium Total Bilirubin AST ALT Alkaline Phosphatase Total Creatine Kinase CK-MB (Mass) Troponin I Total Protein Albumin Globulin Albumin/Globulin Ratio Assessment & Plan - Assessment and Plan (Free Text) Assessment: 67 yo male patient, with PMHx of DM, HTN, ESRD, CAD, seen and evaluated at bedside for b/l heel pain. Plan: Patient seen and evaluated with all questions and concerns addressed Patient discussed in detail with Dr. Dobson Chart, vitals, and labs appreciated; afebrile and absent leukocytosis (11/04) X-ray's ordered; pending Lidoderm patches ordered to be placed on heels 12 hrs on 12 hours off Will continue to follow up with patient while still in house Thank you for the consult and allowing us to partake in the care of this patient - Date & Time Date: 11/04/17 Time: 20:02
--- NOTE | 2017-11-04 21:52 | PN ---
Copied To: Christian Hebert MD Attending MD: Christian Hebert MD DATE: 11/04/2017 SUBJECTIVE: The patient complains of bilateral foot pain. He denies any exertional chest pain. No reported significant arrhythmia on the monitor. PHYSICAL EXAMINATION: VITAL SIGNS: Blood pressure 115/60, heart rate 81, temperature 99, and respirations 20. HEENT: Pale conjunctivae. CHEST: Clear. HEART: S1 and S2 regular. ABDOMEN: Soft. EXTREMITIES: 1+ pitting edema. No calf tenderness. LABORATORY DATA: Hemoglobin and hematocrit 8.8 and 26.6, white count and platelet count are within normal limits. Today's SMA-7 is within normal limits except BUN and creatinine of 45 and 8 respectively. Troponins were as follows: Day before yesterday 0.495, yesterday 3.57, and today it is 4.73. ASSESSMENT: 1. Status post recent ST elevation myocardial infarction with total occlusion of saphenous vein graft to the right coronary artery. 2. End-stage renal disease, on hemodialysis. 3. Anemia. 4. Peripheral vascular disease. 5. Depressed ejection fraction as per the most recent cardiac catheterization. RECOMMENDATIONS: Continue aspirin 81 mg once a day, Plavix 75 mg once a day, therapeutic intravenous heparin. Resume Toprol-XL at 25 mg daily. There is no contraindication. Obtain a repeat echocardiographic study. The patient is not a suitable candidate for any percutaneous intervention or coronary artery bypass surgery. Christian Hebert MD
--- NOTE | 2017-11-05 05:33 | PN ---
Copied To: Sd Garcia MD Attending MD: Sd Garcia MD DATE: 11/03/2017 SUBJECTIVE: Today, the patient is transferred to telemetry. Denies any chest pain or palpitation. Complaining of some pain to the feet. No shortness of breath. PHYSICAL EXAMINATION: VITAL SIGNS: The patient has a blood pressure of 125/68, pulse 76, respirations 20, temperature 99.1. NECK: Supple. No JVD. LUNGS: Clear. HEART: Regular rate and rhythm. Positive murmur. ABDOMEN: Soft and nontender. EXTREMITIES: No edema. LABORATORY DATA: The patient had some blood tests. WBC 5.2, hemoglobin 8.9, hematocrit 26.8, and platelets 227. The chemistry showed a sodium of 141, potassium 5, chloride 98, bicarb 27, BUN 33, creatinine 6.2, and glucose 116. Phosphorus is 5.3 and magnesium 2.4. Troponin is back at 3.57 and 0.49. ASSESSMENT AND PLAN: We are going to continue to monitor his troponin and also continue the nitroglycerin paste. The patient has been already on aspirin and Plavix. Sd Garcia MD
[2017-11-05] MEDS: Oxycodone/Acetaminophen 5/325 mg Tab PO PRN ×3 (06:05→18:42)
--- NOTE | 2017-11-05 07:19 | PN ---
Copied To: Sd Garcia MD Attending MD: Sd Garcia MD DATE: 11/02/2017 SUBJECTIVE: The patient was given dialysis. The patient was complaining of some chest pain. The patient was found to have ST elevation, and Code Heart was called; and the patient has emergency cardiac catheterization, and the patient had cardiac catheterization that had showed that there was a blockage of the coronary arteries, and there is occlusion of multiple arteries and the previous bypass graft. The patient was transferred to ICU. Now, the patient is alert, awake, and oriented x3. Denied any shortness of breath. No chest pain. PHYSICAL EXAMINATION: VITAL SIGNS: Blood pressure now 101/50, pulse 83, respirations 18, temperature 97.8. NECK: Supple. LUNGS: Clear. HEART: Regular rate and rhythm with positive murmur. ABDOMEN: Soft and nontender. EXTREMITIES: There is found. Labs that were done showed WBC 8.3, hemoglobin 9.9, hematocrit 29.5, and platelets 233. Troponin was 0.63. Now, it is 0.49, decreasing. The case was discussed on two occasions with Dr. Emilee MD, the [facility] director, who kept me informed of the patient's progress, and now the patient will continue medical treatment. The patient KVNG Bowman, who was also involved in the management of the patient . Sd Garcia MD
--- NOTE | 2017-11-05 08:03 | CARD ---
APPROVED REPORT Date of service: 11/02/2017 EKG Measurement Heart [id number] <Conclusion> Normal sinus rhythm Normal ECG
[2017-11-05 08:12] LABS: BASO % 0.9 % (0.0-2.0); EOS # 0.2 K/uL (0.0-0.7); EOS % 4.1 % (0.0-4.0); HEMOGLOBIN 8.8 g/dL (12.0-18.0); LYMPH # 0.6 K/uL (1.0-4.3); LYMPH % 12.1 % (20.0-40.0); MEAN CELL VOLUME 89.3 fL (80.0-94.0); MEAN CORPUSCULAR HGB CONC 33.6 g/dL (33.0-37.0); MEAN PLATELET VOLUME 9.5 fL (7.2-11.7); MONO # 0.8 K/uL (0.0-0.8); MONO % 14.5 % (0.0-10.0); NEUT # 3.5 K/uL (1.8-7.0); NEUT % 68.4 % (50.0-75.0); RBC 2.92 Mil/uL (4.40-5.90); RED CELL DISTRIBUTION WIDTH 16.3 % (11.5-14.5); WHITE BLOOD COUNT 5.2 K/uL (4.8-10.8)
[2017-11-05] MEDS: (Novolin R) Insulin Human Regular 100 units/ml vial SC SCH ×3 (08:38→18:43)
[2017-11-05 08:39] LABS: ALB/GLOB RATIO 1.1 (1.0-2.1); ALBUMIN 3.4 g/dL (3.5-5.0); CALCIUM 9.7 mg/dl (8.6-10.4)
[2017-11-05] MEDS: Multivitamin Vitamin B Complex (Nephro-Vite) Tab PO SCH (08:55)
--- NOTE | 2017-11-05 09:17 | PN ---
Copied To: Sd Garcia MD Attending MD: Sd Garcia MD DATE: 11/04/2017 SUBJECTIVE: The patient is alert, awake. He is lying on bed. right more than the left. No medication. He denies any chest pain or palpitation. No dizziness. PHYSICAL EXAMINATION: VITAL SIGNS: The patient has blood pressure of 160/60, pulse 81, respirations 20, temperature 99. NECK: Supple. LUNGS: Clear. . HEART: Regular rate and rhythm. Positive murmur. ABDOMEN: Soft and nontender in the right lower quadrant. Positive bowel sounds. EXTREMITIES: There is no edema. There is a fistula in the left arm. LABORATORY DATA: Blood work showed WBC 5.7, hemoglobin 8.8, hematocrit 26.6, and platelets are 258. PLAN: So, the plan is that we are going to order the x-ray of the foot. Consult with Dr. Dobson to rule out stress. The patient will be going home as soon as I leave. Sd Garcia MD
--- NOTE | 2017-11-05 09:34 | CP.PCM.PN ---
Subjective - Date & Time of Evaluation Date of Evaluation: 11/05/17 Time of Evaluation: 09:00 - Subjective Subjective: Stoney Masters, PGY1 Cardiology Progress Note for Dr. Ferrell Patient was seen and examined at bedside this morning. Patient denied chest pain , palpitations, shortness of breath, lightheadedness, dizziness, nausea, vomiting, diarrhea. Patient does complain of mild bilateral foot pain. No changes overnight. Patient is still currently on heparin gtt. Patient says that he feels better after the cardiac cath on 11/02. Patient was explained that as a result of his recent catheterization, he is not a candidate for PCI or CABG procedure. A full 12 point ROS was conducted and unremarkable except as stated above. Objective - Vital Signs/Intake and Output Vital Signs (last 24 hours): Temp Pulse Resp BP Pulse Ox 98.4 F 100 H 20 161/76 H 96 11/05/17 07:08 11/05/17 07:08 11/05/17 07:08 11/05/17 07:08 11/05/17 07:08 - Medications Medications: Current Medications Aspirin (Aspirin Chewable) 81 mg PO DAILY [facility] Last Admin: 11/04/17 10:38 Dose: 81 mg Calcium Acetate (Phoslo) 667 mg PO TIDCC [facility] Last Admin: 11/05/17 08:55 Dose: 667 mg Clopidogrel Bisulfate (Plavix) 75 mg PO DAILY [facility] Last Admin: 11/04/17 10:38 Dose: 75 mg Epoetin Adam (Procrit) 10,000 unit IV TTS [facility] Last Admin: 11/03/17 11:27 Dose: Not Given Glimepiride (Amaryl) 2 mg PO DAILY [facility] Last Admin: 10/30/17 09:37 Dose: 2 mg Heparin Sodium/Sodium Chloride (Heparin 11847 Units/250ml 1/2 Normal Saline) 25 ,000 units in 250 mls @ 13.68 mls/hr IV .[id number] PRN; Protocol; 18 UNITS/KG/HR PRN Reason: PROTOCOL Last Admin: 11/04/17 15:10 Dose: 18 units/kg/hr, 13.68 mls/hr Insulin Human Regular (Novolin R) 0 unit SC TIDPC [facility] PRN Reason: Protocol Last Admin: 11/05/17 08:38 Dose: Not Given Lidocaine (Lidoderm) 1 ea TD DAILY [facility] Metoprolol Succinate (Toprol Xl) 25 mg PO DAILY [facility] Montelukast Sodium (Singulair) 10 mg PO HS [facility] Last Admin: 11/04/17 21:20 Dose: Not Given Oxycodone/Acetaminophen (Percocet 5/325 Mg Tab) 1 tab PO Q4H PRN PRN Reason: Pain, moderate (4-7) Stop: 11/06/17 12:53 Last Admin: 11/05/17 06:05 Dose: 1 tab Pantoprazole Sodium (Protonix Ec Tab) 40 mg PO DAILY [facility] Last Admin: 11/04/17 10:38 Dose: 40 mg Pregabalin (Lyrica) 25 mg PO BID [facility] Last Admin: 11/04/17 18:24 Dose: 25 mg Rosuvastatin Calcium (Crestor) 5 mg PO HS [facility] Last Admin: 11/04/17 21:20 Dose: Not Given Trazodone HCl (Desyrel) 100 mg PO [facility] Last Admin: 11/04/17 21:20 Dose: Not Given Vitamin B Complex/Vit C/Folic Acid (Nephro-Bnejamin) 1 tab PO 0800 [facility] Last Admin: 11/05/17 08:55 Dose: 1 tab - Labs Labs: 11/05/17 07:57 11/05/17 07:57 PT 12.0 SECONDS (9.7-12.2) 11/03/17 20:32 INR 1.1 11/03/17 20:32 APTT 65 SECONDS (21-34) H D 11/05/17 07:57 - Constitutional Appears: Well - Head Exam Head Exam: ATRAUMATIC, NORMAL INSPECTION, NORMOCEPHALIC - Eye Exam Eye Exam: EOMI, Normal appearance, PERRL - ENT Exam ENT Exam: Mucous Membranes Moist, Normal Exam - Neck Exam Neck Exam: Full ROM, Normal Inspection. absent: Lymphadenopathy - Respiratory Exam Respiratory Exam: Clear to Ausculation Bilateral, NORMAL BREATHING PATTERN. absent: Chest Wall Tenderness, Rales, Rhonchi, Wheezes, Respiratory Distress, Stridor - Cardiovascular Exam Cardiovascular Exam: REGULAR RHYTHM, +S1, +S2. absent: Murmur - GI/Abdominal Exam GI & Abdominal Exam: Soft, Normal Bowel Sounds. absent: Tenderness - Extremities Exam Extremities Exam: Full ROM. absent: Calf Tenderness, Joint Swelling, Pedal Edema, Tenderness Additional comments: Patient has onychomycosis of bilateral feet. Patient has left upper extremity AV Fistula. - Neurological Exam Neurological Exam: Alert, Awake, Oriented x3 Neuro motor strength exam: Left Upper Extremity: 5, Right Upper Extremity: 5, Left Lower Extremity: 5, Right Lower Extremity: 5 - Skin Skin Exam: Dry, Intact, Normal Color, Warm. absent: Cyanosis, Erythema, Pallor Assessment and Plan - Assessment and Plan (Free Text) Assessment: Patient is a 67 y/o M with PMHx of CAD (CABG x2), PUD, ESRD (on HD MWF), DM, and HTN who presented to the ED on 10/30 for intermittent abdominal pain. Patient was admitted for small bowel obstruction. As per surgery, no intervention was necessary for bowel obstruction. Patient was receiving HD during hospital course (most recent on 11/01). However, on 11/02, patient's EKG findings indicated ST elevation inferior wall DE. Patient's troponin levels were significantly elevated at .631. Vital signs: HR 95, BP 113/67, SaO2 99% on 2 L NC. Code HEART was called. Patient was immediately taken to the cardiac catheterization lab. Patient is not a candidate for PCI or CABG s/p cath. Patient is currently on the floor and being monitored. Plan: ST Elevation inferior wall DE (History of CABG x2) - troponins trending upwards: 4.73 (11/05) likely 2/2 recent cardiac cath and kidney injury (ESRD on HD) - As per cardiac cath results (11/02), patient is not a candidate for PCI or CABG. - Cardiac cath (11/02): Proximal segmental KULKARNI coiled. MISSY/KULKARNI are not harvested. 50% distal left main disease. 65% stenosis at the mid-LAD. Diffuse coronary disease. Severe [place] disease. Stent at the left subclavian. - c/w Heparin gtt; monitor PTT - c/w ASA/Plavix, toprol, crestor - EKG (11/02): ST elevation inferior leads (Code HEART) - Cardiac cath (11/02): Proximal segmental KULKARNI coiled. MISSY/KULKARNI are not harvested. 50% distal left main disease. 65% stenosis at the mid-LAD. Diffuse coronary disease. Severe [place] disease. Stent at the left subclavian. - No bleeding or hematoma at access site s/p cardiac cath - Overall poor prognosis 2/2 significant cardiac history and comorbidities HTN - currently hypertensive, BP 161/76 - continue to monitor BP - c/w Toprol ESRD (on HD, MWF) - BUN/Cr trending upwards: BUN/Cr 58/10 - Patient was planned for HD today on 11/02 prior to Code HEART; expecting worsened renal function s/p cardiac cath - f/u nephro recs for next HD treatment Dispo: Continue to manage patient on the floor. Case was discussed and reviewed with Dr. Ferrell. Please see any further recommendations as per Dr. Ferrell.
[2017-11-05] MEDS: Pantoprazole 40 mg EC Tab PO SCH (09:58)
[2017-11-05] MEDS: Lidocaine 5% Patch TD SCH (09:58)
[2017-11-05 13:05] LABS: TROPONIN I 4.23 ng/mL (0.00-0.120)
--- NOTE | 2017-11-05 13:26 | RAD ---
Bilateral feet five views History: Pain to the heels. Comparison: None available. Findings: Right foot: Moderate dorsal and plantar calcaneal spurring. Prominent vascular calcifications. Diffuse osteopenia. Degenerative changes noted at the dorsal aspect of the talonavicular joint space. Moderate hallux valgus deformity. Question mild cortical irregularity, possibly chronic, at the lateral cortex of the 4th metatarsal shaft. Clinical correlation. Left foot: Prominent plantar and dorsal calcaneal spurring. Surgical clips in the posterior soft tissues at the level of the posterior distal tibia. Vascular calcifications. Diffuse osteopenia. Dorsal calcaneal spurring at the dorsal aspect of the talonavicular joint space. Soft tissue calcifications at the medial and lateral aspects of the base of the 2nd metatarsal bone. Impression: Prominent plantar and dorsal calcaneal spurring. If pain persists, consider MRI.
--- NOTE | 2017-11-05 14:27 | PN ---
Copied To: Amada Sanders MD Attending MD: Amada Sanders MD DATE: 11/05/2017 LOCATION: 564, bed A. SUBJECTIVE: This is a 67-year-old male seen and examined in rounds, is still on heparin drip. Appeared to be awake, alert, oriented without any reported active bleeding, but intermittent period of poor oral intake, loss of appetite with intermittent periods with slight shortness of breath. The entire chart is reviewed including but not limited to the most recent lab and radiology study results, current and the previous medication list, current and the previous medical events. Today's lab results showed hemoglobin of 8.8, hematocrit 26 with PT of 65 due to heparin drip with potassium 5.5, BUN 58, creatinine 10, phosphorus 4.7, magnesium 2.5 with alkaline phosphatase of 144 with albumin 3.4. The entire chart is reviewed including but not limited to the above-mentioned lab results. PHYSICAL EXAMINATION: GENERAL: A 67-year-old male. VITAL SIGNS: Afebrile with pulse of 96, respiratory rate 20 to 22, blood pressure 152/74. HEENT: Showed pale dry oral mucous membrane. Nonicteric sclerae. LUNGS: Few scattered crepitation. Decreased air entry at bases. HEART: Positive S1 and S2. ABDOMEN: Soft with mild generalized tenderness. No mass or organomegaly. No rebound tenderness or guarding. EXTREMITIES: Without significant clubbing, cyanosis, or edema. No reported new neurological deficits, sensory, or motor. Peripheral pulses are present, but decreased bilaterally. IMPRESSION: 1. Re-exacerbation of peptic ulcer disease. 2. Hypertension. 3. Coronary artery disease with status post cardiac cath. 4. Malnutrition with hypoalbuminemia. 5. Known history of end-stage renal disease. 6. Recently diagnosed inferior wall myocardial infarction. 7. Coronary artery disease with status post coronary artery bypass graft x2. 8. Anemia most likely secondary to above. No evidence of active bleeding in the meantime. SUGGESTIONS: 1. Continue current management. 2. Correct any underlying electrolyte imbalance. 3. Peripheral hyperalimentation. 4. Further recommendation to follow. Amada Sanders MD [facility] # [id number]
--- NOTE | 2017-11-05 16:12 | CP.PCM.PN ---
Subjective - Date & Time of Evaluation Date of Evaluation: 11/05/17 Time of Evaluation: 16:11 - Subjective Subjective: Nephrology Consultation Note: Assessment: stable pain abdomen, missed HD NSTEMI Hypoglycemia esophageal ulcer and gastritis on EGD 10/12/17, SBO Diabetic chronic Kidney Disease (E11.22) Hypertensive Chronic Kidney Disease (I12.0) End stage renal disease (N18.6) dependence on hemodialysis (Z99.2) (MWF) via AVG Anemia (D64.9), Hyperphosphatemia (E83.39), Secondary Hyperparathyroidism (E21.1 ), HTN (I12.0) CAD s/p CABG, active smoker hx of peptic ulcer disease Plan: Will plan for HD today as MWF schedule as ordered. continue with Nephrovite 1 tab/day. last HB 8.8 hence added HARINDER with HD. consider PRBC as needed maintain hemodynamics stable, BP on low side, not on bp meds continue with phos binders as phoslo Glycemic control. avoid glimerpide. can use non-renally excreted sulphonylurea such as glipizide (but not long acting) instead, if needed Further work up/management as per primary team Dose meds/antibiotics for ESRD status. Avoid fleets enema/magnesium based laxatives. GI cardiology following continue with PPI Thanks for allowing me to participate in care of your patient. Will follow patient with you. Please call if any Qs. had d/w team Dr Solo Valentino Office: [phone] Reason for consult: ESRD management HPI: Pt is a 67 M with hx of ESRD on hemodialysis (MWF) via AVG but non- compliant, last dialysis last week @[facility], chronic anemia, hyperphosphatemia, secondary hyperparathyroidism, Diabetes Mellitus, hypertension, CAD s/p CABG, active smoker, hx of partial gastrectomy, SBO and peptic ulcer bleed presented with complaints of worsening abdomen pain and admitted for further management renal consult for ESRD management denies CP/sob/nausea/vomiting ROS: Denies chest pain, palpitation, shortness of breath, leg swelling now. Physical Examination: General Appearance: in no acute respiratory distress Vitals reviewed and noted as below Head; Atraumatic, normocephalic Lungs: Normal respiratory rate/effort. Breath sounds bilateral equal and clear Heart: normal rate. s1s2 normal. No rub or gallop. has CABG scar Extremities: no edema. No varicose veins Neurological: Patient is awake alert follows commands, no focal deficit Skin: Warm and dry. Normal turgor. No rash. Palpitation: Normal elasticity for age Abdomen: Abdomen is soft. Bowel sounds +. There is mild epigastric abdominal tenderness, no guarding/rigidity or organomegaly. prior surgical scars+ Labs/imaging reviewed. Past medical history, past surgical history, family history, social history, allergy reviewed and noted as below Family Hx: no hx of CKD. Non contributory Objective - Vital Signs/Intake and Output Vital Signs (last 24 hours): Temp Pulse Resp BP Pulse Ox 97.9 F 83 16 126/68 96 11/05/17 14:35 11/05/17 14:35 11/05/17 14:35 11/05/17 15:00 11/05/17 14:35 Intake and Output: 11/05/17 11/05/17 06:59 18:59 Intake Total 0 Balance 0 - Medications Medications: Current Medications Aspirin (Aspirin Chewable) 81 mg PO DAILY [facility] Last Admin: 11/05/17 09:58 Dose: 81 mg Calcium Acetate (Phoslo) 667 mg PO TIDCC [facility] Last Admin: 11/05/17 13:06 Dose: 667 mg Clopidogrel Bisulfate (Plavix) 75 mg PO DAILY [facility] Last Admin: 11/05/17 09:58 Dose: 75 mg Epoetin Adam (Procrit) 10,000 unit IV [facility] Glimepiride (Amaryl) 2 mg PO DAILY [facility] Last Admin: 10/30/17 09:37 Dose: 2 mg Heparin Sodium/Sodium Chloride (Heparin 93826 Units/250ml 1/2 Normal Saline) 25 ,000 units in 250 mls @ 13.68 mls/hr IV .[id number] PRN; Protocol; 18 UNITS/KG/HR PRN Reason: PROTOCOL Last Titration: 11/05/17 10:10 Dose: 18 units/kg/hr, 13.68 mls/hr Insulin Human Regular (Novolin R) 0 unit SC TIDPC [facility] PRN Reason: Protocol Last Admin: 11/05/17 14:06 Dose: Not Given Lidocaine (Lidoderm) 1 ea TD DAILY [facility] Last Admin: 08/20/18 09:58 Dose: 1 ea Metoprolol Succinate (Toprol Xl) 25 mg PO DAILY [facility] Montelukast Sodium (Singulair) 10 mg PO HS [facility] Last Admin: 11/04/17 21:20 Dose: Not Given Oxycodone/Acetaminophen (Percocet 5/325 Mg Tab) 1 tab PO Q4H PRN PRN Reason: Pain, moderate (4-7) Stop: 11/06/17 12:53 Last Admin: 11/05/17 10:03 Dose: 1 tab Pantoprazole Sodium (Protonix Ec Tab) 40 mg PO DAILY [facility] Last Admin: 11/05/17 09:58 Dose: 40 mg Pregabalin (Lyrica) 25 mg PO BID [facility] Last Admin: 11/05/17 09:58 Dose: 25 mg Rosuvastatin Calcium (Crestor) 5 mg PO HS [facility] Last Admin: 11/04/17 21:20 Dose: Not Given Trazodone HCl (Desyrel) 100 mg PO HS [facility] Last Admin: 11/04/17 21:20 Dose: Not Given Vitamin B Complex/Vit C/Folic Acid (Nephro-Benjamin) 1 tab PO 0800 [facility] Last Admin: 11/05/17 08:55 Dose: 1 tab - Labs Labs: 11/05/17 07:57 11/05/17 07:57 PT 12.0 SECONDS (9.7-12.2) 11/03/17 20:32 INR 1.1 11/03/17 20:32 APTT 65 SECONDS (21-34) H D 11/05/17 07:57
--- NOTE | 2017-11-05 16:41 | PN ---
Copied To: Christian Hebert MD Attending MD: Christian Hebert MD DATE: 11/05/2017 SUBJECTIVE: The patient denies any chest pain. He complains of bilateral foot pain in the soles. No reported ventricular arrhythmia. PHYSICAL EXAMINATION: VITAL SIGNS: Blood pressure 161/76, heart rate 100, temperature 98.4, respirations 20. HEENT: Pale conjunctiva. CHEST: Clear. HEART: S1 and S2 regular. EXTREMITIES: No edema or calf tenderness. LABORATORY DATA: Hemoglobin and hematocrit 8.8 and 26. White count and platelet count are within normal limits. SMA-7, sodium 138, potassium 5.5, chloride 99, CO2 of 25, glucose 76, pain 58, creatinine 10. The most recent EKG performed two days ago revealed sinus rhythm, inferior Q-waves and resolution of the previously noted inferior ST elevation. ASSESSMENT: 1. Chest pain, consider injury pattern. 2. End-stage renal disease, on hemodialysis. 3. Coronary artery bypass surgery with total occlusion of the saphenous vein graft to the right coronary artery. 4. Diabetes mellitus. 5. Consider underlying peripheral vascular disease in both lower extremities. RECOMMENDATIONS: Continue aspirin 81 mg once a day, therapeutic intravenous heparin infusion regimen for acute coronary syndrome. Continue Plavix 75 mg once a day, Toprol-XL at 25 mg once a day. I did request the team to obtain any recent coronary artery bypass surgery report from [facility] as the patient claimed. The patient will undergo hemodialysis today. 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 I recommend arterial Doppler of both lower extremities. Christian Hebert MD
[2017-11-05] MEDS: Epoetin Alfa 10,000 unit/ml Dialysis IV SCH (17:50)
[2017-11-05] MEDS: Metoprolol Succinate 25 mg XL Tab PO SCH (22:27)
--- NOTE | 2017-11-05 23:24 | CP.PCM.PN ---
Subjective - Date & Time of Evaluation Date of Evaluation: 11/05/17 Time of Evaluation: 10:00 - Subjective Subjective: Podiatry Progress Note for Dr. Dobson: 67 yo male patient, with PMHx of DM, HTN, ESRD, CAD, seen and evaluated with attending for heel pain consistent with plantar fasciitis. Patient is seen resting comfortably in bed, in NAD, and AA0x3. Patient reports localized pain to the plantar heels. Patient denies any trauma to the area. Patient denies any other pedal complaints. Patient denies N/V/F/SOB. Objective - Vital Signs/Intake and Output Vital Signs (last 24 hours): Temp Pulse Resp BP Pulse Ox 98.0 F 87 20 136/81 97 11/05/17 18:40 11/05/17 20:08 11/05/17 18:40 11/05/17 18:40 11/05/17 18:40 Intake and Output: 11/05/17 11/06/17 18:59 06:59 Intake Total 0 552 Balance 0 552 - Medications Medications: Current Medications Aspirin (Aspirin Chewable) 81 mg PO DAILY [facility] Last Admin: 11/05/17 09:58 Dose: 81 mg Calcium Acetate (Phoslo) 667 mg PO TIDCC [facility] Last Admin: 11/05/17 18:43 Dose: 667 mg Clopidogrel Bisulfate (Plavix) 75 mg PO DAILY [facility] Last Admin: 11/05/17 09:58 Dose: 75 mg Epoetin Adam (Procrit) 10,000 unit IV MWF [facility] Last Admin: 11/05/17 17:50 Dose: 10,000 unit Glimepiride (Amaryl) 2 mg PO DAILY [facility] Last Admin: 10/30/17 09:37 Dose: 2 mg Heparin Sodium/Sodium Chloride (Heparin 29780 Units/250ml 1/2 Normal Saline) 25 ,000 units in 250 mls @ 13.68 mls/hr IV .[id number] PRN; Protocol; 18 UNITS/KG/HR PRN Reason: PROTOCOL Last Titration: 11/05/17 10:10 Dose: 18 units/kg/hr, 13.68 mls/hr Insulin Human Regular (Novolin R) 0 unit SC TIDPC [facility] PRN Reason: Protocol Last Admin: 11/05/17 18:43 Dose: Not Given Lidocaine (Lidoderm) 1 ea TD DAILY [facility] Last Admin: 11/05/17 09:58 Dose: 1 ea Metoprolol Succinate (Toprol Xl) 25 mg PO DAILY [facility] Last Admin: 11/05/17 22:27 Dose: 25 mg Montelukast Sodium (Singulair) 10 mg PO HS [facility] Last Admin: 11/05/17 21:24 Dose: 10 mg Oxycodone/Acetaminophen (Percocet 5/325 Mg Tab) 1 tab PO Q4H PRN PRN Reason: Pain, moderate (4-7) Stop: 11/06/17 12:53 Last Admin: 11/05/17 18:42 Dose: 1 tab Pantoprazole Sodium (Protonix Ec Tab) 40 mg PO DAILY [facility] Last Admin: 11/05/17 09:58 Dose: 40 mg Pregabalin (Lyrica) 25 mg PO BID [facility] Last Admin: 11/05/17 18:43 Dose: 25 mg Rosuvastatin Calcium (Crestor) 5 mg PO [facility] Last Admin: 11/05/17 21:24 Dose: 5 mg Trazodone HCl (Desyrel) 100 mg PO [facility] Last Admin: 11/05/17 21:24 Dose: 100 mg Vitamin B Complex/Vit C/Folic Acid (Nephro-Benjamin) 1 tab PO 0800 [facility] Last Admin: 11/05/17 08:55 Dose: 1 tab - Labs Labs: 11/05/17 07:57 11/05/17 07:57 PT 12.0 SECONDS (9.7-12.2) 11/03/17 20:32 INR 1.1 11/03/17 20:32 APTT 65 SECONDS (21-34) H D 11/05/17 07:57 - Constitutional Appears: Well, Non-toxic, No Acute Distress - Extremities Exam Extremities Exam: absent: Calf Tenderness Additional comments: Vascular: DP 2/4, PT 1/4 bilaterally, CFT < 3 seconds to all digits, no edema noted, TG warm to warm Ortho: Pain upon palpation of bilateral medial calcaneal tubercle. MMT 4/5 bilaterally to all compartments, no pain upon calf compression bilaterally Neuro: Gross sensation intact, protective sensation diminished Derm: No open lesions, no erythema, no cellulitis, no streaking, no fluctuance, no clinical signs of infection to b/l feet. - Neurological Exam Neurological Exam: Alert, Awake - Psychiatric Exam Psychiatric exam: Normal Affect, Normal Mood Assessment and Plan - Assessment and Plan (Free Text) Assessment: 67 y.o male with likely bilateral plantar fasciitis Plan: Patient seen and evaluated with all questions and concerns addressed Patient discussed in detail with Dr. Dobson Chart, vitals, and labs appreciated; afebrile and absent leukocytosis X-ray's ordered Lidoderm patches ordered to be placed on heels 12 hrs on 12 hours off Will continue to follow up with patient while still in house
--- NOTE | 2017-11-05 23:48 | CARD ---
APPROVED REPORT Date of service: 11/03/2017 EKG Measurement Heart [id number] <Conclusion> Normal sinus rhythm Normal ECG
[2017-11-06] MEDS: Heparin25000 units/250ml 1/2NS 25,000 UNITS/250 ML BAG IV PRN ×2 (03:59→22:39)
--- NOTE | 2017-11-06 04:33 | PN ---
Copied To: Sd Garcia MD Attending MD: Sd Garcia MD DATE: 11/05/2017 SUBJECTIVE: The patient is alert and awake. Denies any chest pain. abdominal pain. No shortness of breath. No dizziness. PHYSICAL EXAMINATION: VITAL SIGNS: The patient has a blood pressure of 120/81, pulse 94, respiratory rate 20, temperature 98 degrees Fahrenheit. NECK: Supple. No JVD. LUNGS: Fine rales at the bases. HEART: Regular rate and rhythm. ABDOMEN: Soft. Mild tenderness in the left lower quadrant. EXTREMITIES: No edema. There is an AV fistula in the left arm. LABORATORY DATA: The patient had a blood work done. WBC 5.2, hemoglobin 8.8 and hematocrit 26, and platelet is 254. Chemistry showed a sodium of 138, potassium 5.5, chloride 99, bicarb is 25, BUN 58, creatinine 10, and . ASSESSMENT AND PLAN: The patient was seen by Podiatry and also by Dr. Urrutia. The patient will continue current treatment and also recommendations to follow up. Sd Garcia MD
[2017-11-06] MEDS: (Novolin R) Insulin Human Regular 100 units/ml vial SC SCH ×3 (08:26→17:04)
[2017-11-06] MEDS: Multivitamin Vitamin B Complex (Nephro-Vite) Tab PO SCH (08:53)
[2017-11-06] MEDS: Oxycodone/Acetaminophen 5/325 mg Tab PO PRN ×3 (08:55→21:17)
--- NOTE | 2017-11-06 09:27 | CP.PCM.PN ---
Subjective - Date & Time of Evaluation Date of Evaluation: 11/06/17 Time of Evaluation: 08:00 - Subjective Subjective: Stoney Masters, PGY1 Cardiology Progress Note for Dr. Ferrell Patient was seen and examined at bedside this morning. No overnight changes. Patient received HD yesterday afternoon via left AV fistula access site. Patient is still currently on heparin gtt. Patient denies chest pain, shortness of breath, lightheadedness, dizziness, blurry vision, abdominal pain, pain in the extremities, nausea, vomiting, and diarrhea. Overall, patient says that he is feeling better. A full 12 point ROS was conducted and unremarkable except as stated above. Objective - Vital Signs/Intake and Output Vital Signs (last 24 hours): Temp Pulse Resp BP Pulse Ox 98.8 F 85 20 127/62 95 11/06/17 07:00 11/06/17 07:15 11/06/17 07:00 11/06/17 07:00 11/06/17 07:00 Intake and Output: 11/06/17 11/06/17 06:59 18:59 Intake Total 802 Balance 802 - Medications Medications: Current Medications Aspirin (Aspirin Chewable) 81 mg PO DAILY [facility] Last Admin: 11/05/17 09:58 Dose: 81 mg Calcium Acetate (Phoslo) 667 mg PO TIDCC [facility] Last Admin: 11/06/17 08:53 Dose: 667 mg Clopidogrel Bisulfate (Plavix) 75 mg PO DAILY [facility] Last Admin: 11/05/17 09:58 Dose: 75 mg Epoetin Adam (Procrit) 10,000 unit IV MWF [facility] Last Admin: 11/05/17 17:50 Dose: 10,000 unit Glimepiride (Amaryl) 2 mg PO DAILY [facility] Last Admin: 10/30/17 09:37 Dose: 2 mg Heparin Sodium/Sodium Chloride (Heparin 32264 Units/250ml 1/2 Normal Saline) 25 ,000 units in 250 mls @ 13.68 mls/hr IV .[id number] PRN; Protocol; 18 UNITS/KG/HR PRN Reason: PROTOCOL Last Admin: 11/06/17 03:59 Dose: 18 units/kg/hr, 13.68 mls/hr Insulin Human Regular (Novolin R) 0 unit SC TIDPC [facility] PRN Reason: Protocol Last Admin: 11/06/17 08:26 Dose: Not Given Lidocaine (Lidoderm) 1 ea TD DAILY [facility] Last Admin: 11/05/17 09:58 Dose: 1 ea Metoprolol Succinate (Toprol Xl) 25 mg PO DAILY [facility] Last Admin: 11/05/17 22:27 Dose: 25 mg Montelukast Sodium (Singulair) 10 mg PO HS [facility] Last Admin: 11/05/17 21:24 Dose: 10 mg Oxycodone/Acetaminophen (Percocet 5/325 Mg Tab) 1 tab PO Q4H PRN PRN Reason: Pain, moderate (4-7) Stop: 11/06/17 12:53 Last Admin: 11/06/17 08:55 Dose: 1 tab Pantoprazole Sodium (Protonix Ec Tab) 40 mg PO DAILY [facility] Last Admin: 11/05/17 09:58 Dose: 40 mg Pregabalin (Lyrica) 25 mg PO BID [facility] Last Admin: 11/05/17 18:43 Dose: 25 mg Rosuvastatin Calcium (Crestor) 5 mg PO HS [facility] Last Admin: 11/05/17 21:24 Dose: 5 mg Trazodone HCl (Desyrel) 100 mg PO HS [facility] Last Admin: 11/05/17 21:24 Dose: 100 mg Vitamin B Complex/Vit C/Folic Acid (Nephro-Benjamin) 1 tab PO 0800 [facility] Last Admin: 11/06/17 08:53 Dose: 1 tab - Labs Labs: 11/05/17 07:57 11/05/17 07:57 PT 12.0 SECONDS (9.7-12.2) 11/03/17 20:32 INR 1.1 11/03/17 20:32 APTT 60 SECONDS (21-34) H D 11/06/17 07:47 - Constitutional Appears: Well, No Acute Distress - Head Exam Head Exam: ATRAUMATIC, NORMAL INSPECTION, NORMOCEPHALIC - Eye Exam Eye Exam: EOMI, Normal appearance, PERRL Pupil Exam: NORMAL ACCOMODATION, PERRL - ENT Exam ENT Exam: Mucous Membranes Moist, Normal Exam - Neck Exam Neck Exam: Full ROM, Normal Inspection. absent: Lymphadenopathy - Respiratory Exam Respiratory Exam: Clear to Ausculation Bilateral, NORMAL BREATHING PATTERN. absent: Chest Wall Tenderness, Rales, Rhonchi, Wheezes, Respiratory Distress, Stridor - Cardiovascular Exam Cardiovascular Exam: REGULAR RHYTHM, +S1, +S2. absent: Murmur - GI/Abdominal Exam GI & Abdominal Exam: Soft, Normal Bowel Sounds. absent: Tenderness - Extremities Exam Extremities Exam: Full ROM, Normal Capillary Refill, Normal Inspection. absent : Calf Tenderness, Joint Swelling, Pedal Edema - Back Exam Back Exam: NORMAL INSPECTION - Neurological Exam Neurological Exam: Alert, Awake, Oriented x3 Neuro motor strength exam: Left Upper Extremity: 5, Right Upper Extremity: 5, Left Lower Extremity: 5, Right Lower Extremity: 5 - Skin Skin Exam: Dry, Intact, Normal Color, Warm Assessment and Plan - Assessment and Plan (Free Text) Assessment: Patient is a 67 y/o M with PMHx of CAD (CABG x2), PUD, ESRD (on HD MWF), DM, and HTN who presented to the ED on 10/30 for intermittent abdominal pain. Patient was receiving HD during hospital course; however, on 11/02, patient's EKG findings indicated ST elevation inferior wall CO. Patient's troponin levels were significantly elevated at .631. Code HEART was called. Patient was immediately taken to the cardiac catheterization lab. Patient is not a candidate for PCI or CABG s/p cath. Patient is currently on the floor and being monitored. Plan: ST Elevation inferior wall CO (History of CABG x2) - troponins trending down: 4.23 (11/06) likely 2/2 recent cardiac cath and kidney injury (ESRD on HD); last HD on 11/05 - As per cardiac cath results (11/02), patient is not a candidate for PCI or CABG. - Cardiac cath (11/02): Proximal segmental KULKARNI coiled. MISSY/KULKARNI are not harvested. 50% distal left main disease. 65% stenosis at the mid-LAD. Diffuse coronary disease. Severe point hope ira disease. Stent at the left subclavian. - c/w Heparin gtt; monitor PTT - c/w ASA/Plavix, metoprolol, crestor - EKG (11/02): ST elevation inferior leads (Code HEART) - Cardiac cath (11/02): Proximal segmental KULKARNI coiled. MISSY/KULKARNI are not harvested. 50% distal left main disease. 65% stenosis at the mid-LAD. Diffuse coronary disease. Severe point hope ira disease. Stent at the left subclavian. - No bleeding or hematoma at access site s/p cardiac cath - Overall poor prognosis 2/2 significant cardiac history and comorbidities HTN - currently normotensive BP 127/62 - continue to monitor BP - c/w metoprolol ESRD (on HD, MWF) - f/u BUN/Cr (last HD on 11/05) - f/u nephro recs for next HD treatment (MWF schedule) Dispo: Continue to manage patient on the floor. Case was discussed and reviewed with Dr. Ferrell. Please see any further recommendations as per Dr. Ferrell.
[2017-11-06] MEDS: Pantoprazole 40 mg EC Tab PO SCH (09:43)
[2017-11-06] MEDS: Metoprolol Succinate 25 mg XL Tab PO SCH (09:43)
[2017-11-06] MEDS: Lidocaine 5% Patch TD SCH (09:45)
--- NOTE | 2017-11-06 11:08 | CP.PCM.PN ---
Subjective - Date & Time of Evaluation Date of Evaluation: 11/06/17 Time of Evaluation: 11:07 - Subjective Subjective: Nephrology Consultation Note: Assessment: stable pain abdomen, missed HD NSTEMI Hypoglycemia esophageal ulcer and gastritis on EGD 10/12/17, SBO Diabetic chronic Kidney Disease (E11.22) Hypertensive Chronic Kidney Disease (I12.0) End stage renal disease (N18.6) dependence on hemodialysis (Z99.2) (MWF) via AVG Anemia (D64.9), Hyperphosphatemia (E83.39), Secondary Hyperparathyroidism (E21.1 ), HTN (I12.0) CAD s/p CABG, active smoker hx of peptic ulcer disease Plan: Will plan for HD tomorrow as MWF schedule as ordered. continue with Nephrovite 1 tab/day. last HB 8.8 hence added HARINDER with HD. consider PRBC as needed maintain hemodynamics stable, BP on low side, not on bp meds except lopressor due to cardiac reasons continue with phos binders as phoslo Glycemic control. avoid glimerpide. can use non-renally excreted sulphonylurea such as glipizide (but not long acting) instead, if needed Further work up/management as per primary team Dose meds/antibiotics for ESRD status. Avoid fleets enema/magnesium based laxatives. GI cardiology following continue with PPI Thanks for allowing me to participate in care of your patient. Will follow patient with you. Please call if any Qs. had d/w team Dr Solo Valentino Office: [phone] Reason for consult: ESRD management HPI: Pt is a 67 M with hx of ESRD on hemodialysis (MWF) via [facility]G but non- compliant, last dialysis last week @[facility], chronic anemia, hyperphosphatemia, secondary hyperparathyroidism, Diabetes Mellitus, hypertension, CAD s/p CABG, active smoker, hx of partial gastrectomy, SBO and peptic ulcer bleed presented with complaints of worsening abdomen pain and admitted for further management renal consult for ESRD management denies CP/sob/nausea/vomiting ROS: Denies chest pain, palpitation, shortness of breath, leg swelling now. c/o leg pains and getting vascular study for it Physical Examination: General Appearance: in no acute respiratory distress Vitals reviewed and noted as below Head; Atraumatic, normocephalic Lungs: Normal respiratory rate/effort. Breath sounds bilateral equal and clear Heart: normal rate. s1s2 normal. No rub or gallop. has CABG scar Extremities: no edema. No varicose veins Neurological: Patient is awake alert follows commands, no focal deficit Skin: Warm and dry. Normal turgor. No rash. Palpitation: Normal elasticity for age Abdomen: Abdomen is soft. Bowel sounds +. There is mild epigastric abdominal tenderness, no guarding/rigidity or organomegaly. prior surgical scars+ Labs/imaging reviewed. Past medical history, past surgical history, family history, social history, allergy reviewed and noted as below Family Hx: no hx of CKD. Non contributory Objective - Vital Signs/Intake and Output Vital Signs (last 24 hours): Temp Pulse Resp BP Pulse Ox 98.8 F 76 20 119/64 95 11/06/17 07:00 11/06/17 09:42 11/06/17 07:00 11/06/17 09:42 11/06/17 07:00 Intake and Output: 11/06/17 11/06/17 06:59 18:59 Intake Total 802 Balance 802 - Medications Medications: Current Medications Aspirin (Aspirin Chewable) 81 mg PO DAILY [facility] Last Admin: 11/06/17 09:42 Dose: 81 mg Calcium Acetate (Phoslo) 667 mg PO TIDCC [facility] Last Admin: 11/06/17 08:53 Dose: 667 mg Clopidogrel Bisulfate (Plavix) 75 mg PO DAILY [facility] Last Admin: 11/06/17 09:43 Dose: 75 mg Epoetin Adam (Procrit) 10,000 unit IV [facility] Last Admin: 11/05/17 17:50 Dose: 10,000 unit Glimepiride (Amaryl) 2 mg PO DAILY [facility] Last Admin: 10/30/17 09:37 Dose: 2 mg Heparin Sodium/Sodium Chloride (Heparin 52960 Units/250ml 1/2 Normal Saline) 25 ,000 units in 250 mls @ 13.68 mls/hr IV .[id number] PRN; Protocol; 18 UNITS/KG/HR PRN Reason: PROTOCOL Last Admin: 11/06/17 03:59 Dose: 18 units/kg/hr, 13.68 mls/hr Insulin Human Regular (Novolin R) 0 unit SC TIDPC [facility] PRN Reason: Protocol Last Admin: 11/06/17 08:26 Dose: Not Given Lidocaine (Lidoderm) 1 ea TD DAILY [facility] Last Admin: 11/06/17 09:45 Dose: 1 ea Metoprolol Succinate (Toprol Xl) 25 mg PO DAILY [facility] Last Admin: 11/06/17 09:43 Dose: 25 mg Montelukast Sodium (Singulair) 10 mg PO HS [facility] Last Admin: 11/05/17 21:24 Dose: 10 mg Oxycodone/Acetaminophen (Percocet 5/325 Mg Tab) 1 tab PO Q4H PRN PRN Reason: Pain, moderate (4-7) Stop: 11/06/17 12:53 Last Admin: 11/06/17 08:55 Dose: 1 tab Pantoprazole Sodium (Protonix Ec Tab) 40 mg PO DAILY [facility] Last Admin: 11/06/17 09:43 Dose: 40 mg Pregabalin (Lyrica) 25 mg PO BID [facility] Last Admin: 11/06/17 09:42 Dose: 25 mg Rosuvastatin Calcium (Crestor) 5 mg PO HS [facility] Last Admin: 11/05/17 21:24 Dose: 5 mg Trazodone HCl (Desyrel) 100 mg PO HS [facility] Last Admin: 11/05/17 21:24 Dose: 100 mg Vitamin B Complex/Vit C/Folic Acid (Nephro-Benjamin) 1 tab PO 0800 [facility] Last Admin: 11/06/17 08:53 Dose: 1 tab - Labs Labs: 11/05/17 07:57 11/05/17 07:57 PT 12.0 SECONDS (9.7-12.2) 11/03/17 20:32 INR 1.1 11/03/17 20:32 APTT 60 SECONDS (21-34) H D 11/06/17 07:47
--- NOTE | 2017-11-06 13:29 | PN ---
Copied To: Amada Sanders MD Attending MD: Amada Sanders MD DATE: 11/06/2017 LOCATION: 564, bed A. SUBJECTIVE: This is a 67-year-old male seen and examined in rounds today without significant clinical changes or reported active bleeding, but with less oral intake. No actual chest pain, palpitation or significant shortness of breath and no reported chills or fever. The patient had been on IV drip post-cardiac cath. Today's lab is still pending; however, the PTT reported to be 60 with blood glucose level of 93, still has elevated troponin level . PHYSICAL EXAMINATION: GENERAL: A 67-year-old male. VITAL SIGNS: Afebrile with pulse of 80, respiratory rate 20 to 22, blood pressure of 124/60. HEENT: Showed pale, dry oral mucous membrane. Nonicteric sclerae. LUNGS: Few scattered crepitation. Decreased air entry at bases. HEART: Positive S1 and S2. ABDOMEN: Soft with slight generalized tenderness. No mass or organomegaly. No rebound tenderness or guarding. EXTREMITIES: Without significant clubbing, cyanosis or edema. NET WPF DEVELOPER: No reported new neurological deficits, sensory or motor. IMPRESSION: 1. Peptic ulcer disease. 2. Known history of hypertension, coronary artery disease with status post cardiac catheterization. 3. Known history of end-stage renal disease. 4. Recent history of myocardial infarction. 5. Status post coronary artery bypass graft. 6. Anemia, most likely secondary to above. No evidence of active bleeding in the meantime. SUGGESTIONS: 1. Agree with your plan again. 2. Due to the patient's cardiac status, no aggressive GI workup in the meantime as no reported evidence of active bleeding. We will follow up closely with you. Further recommendation to follow and endoscopic evaluation of the GI, as needed could be done as outpatient. Amada Sanders MD
[2017-11-06 14:08] LABS: HEMOGLOBIN 8.9 g/dL (12.0-18.0); MEAN CELL VOLUME 89.6 fL (80.0-94.0); MEAN CORPUSCULAR HEMOGLOBIN 29.5 pg (27.0-31.0); MEAN CORPUSCULAR HGB CONC 32.9 g/dL (33.0-37.0); MEAN PLATELET VOLUME 9.3 fL (7.2-11.7); RBC 3.02 Mil/uL (4.40-5.90); RED CELL DISTRIBUTION WIDTH 16.1 % (11.5-14.5); WHITE BLOOD COUNT 5.7 K/uL (4.8-10.8)
[2017-11-06 15:04] LABS: ALB/GLOB RATIO 1.2 (1.0-2.1); ALBUMIN 3.6 g/dL (3.5-5.0)
[2017-11-06 15:30] LABS: TROPONIN I 3.3 ng/mL (0.00-0.120)
--- NOTE | 2017-11-06 23:50 | PN ---
Copied To: Christian Hebert MD Attending MD: Christian Hebert MD DATE: 11/06/2017 SUBJECTIVE: The patient is experiencing bilateral foot pain. He denies any chest pain. PHYSICAL EXAMINATION: VITAL SIGNS: Blood pressure 109/60, heart rate 78, temperature 98.5, respirations 20. HEENT: Pale conjunctivae. CHEST: Clear. HEART: S1, S2 regular. EXTREMITIES: No edema. LABORATORY DATA: Today's BUN and creatinine are 41 and 6.7. Today's troponin is 3.3, yesterday it was 4.23. Official report of foot x-ray, prominent plantar and dorsal calcaneal spurring. If being persist, consider MRI. ASSESSMENT: 1. Coronary artery disease, status post ST-elevation inferior infarct. 2. 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 3. Peripheral vascular disease. 4. End-stage renal disease, on hemodialysis. 5. Anemia. RECOMMENDATIONS: Case was discussed with the medical team. Continue Amaryl 2 mg once a day, aspirin 81 mg once a day, Crestor 5 mg once a day, therapeutic intravenous heparin regimen. Plavix 75 mg once a day, Toprol-XL at 25 mg once a day. Follow up arterial Doppler of lower extremity report. Christian Hebert MD
[2017-11-07] MEDS: (Novolin R) Insulin Human Regular 100 units/ml vial SC SCH ×3 (08:42→22:10)
[2017-11-07] MEDS: Multivitamin Vitamin B Complex (Nephro-Vite) Tab PO SCH (08:45)
[2017-11-07] MEDS: Oxycodone/Acetaminophen 5/325 mg Tab PO PRN ×4 (08:45→22:19)
--- NOTE | 2017-11-07 09:24 | PN ---
Copied To: Sd Garcia MD Attending MD: Sd Garcia MD DATE: 11/06/2017 SUBJECTIVE: Today, the patient is alert and awake. He denies any chest pain. No palpitations or dizziness. The patient the foot. PHYSICAL EXAMINATION: VITAL SIGNS: The patient has blood pressure of 109/60, pulse 70, respiratory rate 20, and temperature 98.5. NECK: Supple. LUNGS: There are some rales bilaterally heard at the bases. HEART: Regular rate and rhythm. . ABDOMEN: Soft and nontender. EXTREMITIES: There is no edema. AV fistula in the left arm. The patient is still having heparin drip and diet would be a heart healthy diet. Labs showed WBC of 5.7, hemoglobin 8.9, hematocrit 27.0. Chemistry showed sodium 137, potassium 4.9, chloride 96, bicarb is 29, BUN 41, creatinine 6.7. PLAN: Continue heparin drip. Start the patient on Coumadin, and I discussed the case with Gillian Diaz, the nurse practitioner. Sd Garcia MD
[2017-11-07] MEDS: Lidocaine 5% Patch TD SCH (10:21)
[2017-11-07] MEDS: Metoprolol Succinate 25 mg XL Tab PO SCH (10:22)
[2017-11-07] MEDS: Pantoprazole 40 mg EC Tab PO SCH (10:22)
[2017-11-07] MEDS: Epoetin Alfa 10,000 unit/ml Dialysis IV SCH (11:35)
--- NOTE | 2017-11-07 14:10 | VASCLAB ---
Date of service: 11/06/2017 STUDY DESCRIPTION: HISTORY: PVD PRIORS: None. TECHNIQUE: Pulse volume recording waveforms and segmental pressures of bilateral lower extremities at multiple levels were obtained. Ankle Brachial Indices (ABIs) were calculated. Report prepared by Bob Boo, FAWAD, RVT RIGHT LOWER EXTREMITY: * Brachial artery: Pressure - 136 mmHg. * High thigh: Pressure - mmHg: Ratio - : PVR waveform - Pulsatile * Low thigh: Pressure - 106 mmHg: Ratio - 0.78 PVR waveform: Reduced * Calf: Pressure - 220 mmHg: Ratio - NC PVR waveform: Reduced * Posterior tibial Artery: Pressure - 220 mmHg: Ratio - NC PVR waveform: Reduced * Dorsalis pedis Artery: Pressure - 101 mmHg: Ratio - 0.74 PVR waveform: Reduced * Great toe: Pressure - mmHg: Ratio - PVR waveform: Ankle brachial index (DAPHNE): NC LEFT LOWER EXTREMITY: * Brachial artery: Pressure - mmHg. * High thigh: Pressure - mmHg: Ratio - : PVR waveform - Pulsatile * Low thigh: Pressure - 96 mmHg: Ratio - PVR waveform: Reduced * Calf: Pressure - 220 mmHg: Ratio - NC PVR waveform: Reduced * Posterior tibial Artery: Pressure - mmHg: Ratio - PVR waveform: Reduced * Dorsalis pedis Artery: Pressure - 220 mmHg: Ratio - NC PVR waveform: Reduced * Great toe: Pressure - mmHg: Ratio - PVR waveform: Ankle brachial index (DAPHNE): NC OTHER FINDINGS: Right: Left: IMPRESSION: Right: The ankle pressure index of the right lower extremity is non-diagnostic due to possible arterial wall calcifications. However, pules volume recordings waveforms are suggestive of superficial femoral, popliteal, tibial and distal small artery level disease. Left: The ankle pressure index of the left lower extremity is non-diagnostic due to possible arterial wall calcifications. However, pules volume recordings waveforms are suggestive of superficial femoral, popliteal, tibial and distal small artery level disease.
--- NOTE | 2017-11-07 16:18 | CP.PCM.PN ---
Subjective - Date & Time of Evaluation Date of Evaluation: 11/07/17 Time of Evaluation: 16:17 - Subjective Subjective: Nephrology Consultation Note: Assessment: stable pain abdomen, missed HD NSTEMI Hypoglycemia esophageal ulcer and gastritis on EGD 10/12/17, SBO Diabetic chronic Kidney Disease (E11.22) Hypertensive Chronic Kidney Disease (I12.0) End stage renal disease (N18.6) dependence on hemodialysis (Z99.2) (MWF) via AVG Anemia (D64.9), Hyperphosphatemia (E83.39), Secondary Hyperparathyroidism (E21.1 ), HTN (I12.0) CAD s/p CABG, active smoker hx of peptic ulcer disease Plan: Will plan for HD today as MWF schedule as ordered. continue with Nephrovite 1 tab/day. last HB 8.9 hence added HARINDER with HD. consider PRBC as needed maintain hemodynamics stable, BP on low side, not on bp meds except lopressor due to cardiac reasons continue with phos binders as phoslo Glycemic control. avoid glimerpide. can use non-renally excreted sulphonylurea such as glipizide (but not long acting) instead, if needed Further work up/management as per primary team Dose meds/antibiotics for ESRD status. Avoid fleets enema/magnesium based laxatives. GI cardiology following continue with PPI Thanks for allowing me to participate in care of your patient. Will follow patient with you. Please call if any Qs. had d/w team Dr Solo Valentino Office: [phone] Reason for consult: ESRD management HPI: Pt is a 67 M with hx of ESRD on hemodialysis (MWF) via AVG but non- compliant, last dialysis last week @[facility], chronic anemia, hyperphosphatemia, secondary hyperparathyroidism, Diabetes Mellitus, hypertension, CAD s/p CABG, active smoker, hx of partial gastrectomy, SBO and peptic ulcer bleed presented with complaints of worsening abdomen pain and admitted for further management renal consult for ESRD management denies CP/sob/nausea/vomiting ROS: Denies chest pain, palpitation, shortness of breath, leg swelling now. c/o leg pains and got vascular study for it Physical Examination: General Appearance: in no acute respiratory distress Vitals reviewed and noted as below Head; Atraumatic, normocephalic Lungs: Normal respiratory rate/effort. Breath sounds bilateral equal and clear Heart: normal rate. s1s2 normal. No rub or gallop. has CABG scar Extremities: no edema. No varicose veins Neurological: Patient is awake alert follows commands, no focal deficit Skin: Warm and dry. Normal turgor. No rash. Palpitation: Normal elasticity for age Abdomen: Abdomen is soft. Bowel sounds +. There is mild epigastric abdominal tenderness, no guarding/rigidity or organomegaly. prior surgical scars+ Labs/imaging reviewed. Past medical history, past surgical history, family history, social history, allergy reviewed and noted as below Family Hx: no hx of CKD. Non contributory Objective - Vital Signs/Intake and Output Vital Signs (last 24 hours): Temp Pulse Resp BP Pulse Ox 98.7 F 87 20 115/56 L 96 11/07/17 15:00 11/07/17 15:00 11/07/17 15:00 11/07/17 15:00 11/07/17 15:00 Intake and Output: 11/07/17 11/07/17 06:59 18:59 Intake Total 250 Balance 250 - Medications Medications: Current Medications Aspirin (Aspirin Chewable) 81 mg PO DAILY [facility] Last Admin: 11/07/17 10:21 Dose: Not Given Calcium Acetate (Phoslo) 667 mg PO TIDCC [facility] Last Admin: 11/07/17 13:00 Dose: Not Given Clopidogrel Bisulfate (Plavix) 75 mg PO DAILY [facility] Last Admin: 11/07/17 10:22 Dose: Not Given Epoetin Adam (Procrit) 10,000 unit IV MWF [facility] Last Admin: 11/07/17 11:35 Dose: 10,000 unit Glimepiride (Amaryl) 2 mg PO DAILY [facility] Last Admin: 10/30/17 09:37 Dose: 2 mg Heparin Sodium (Porcine) (Heparin) 5,000 units SC Q8 [facility] Insulin Human Regular (Novolin R) 0 unit SC TIDPC [facility] PRN Reason: Protocol Last Admin: 11/07/17 14:50 Dose: Not Given Lidocaine (Lidoderm) 1 ea TD DAILY [facility] Last Admin: 11/07/17 10:21 Dose: Not Given Metoprolol Succinate (Toprol Xl) 25 mg PO DAILY [facility] Last Admin: 11/07/17 10:22 Dose: Not Given Montelukast Sodium (Singulair) 10 mg PO HS [facility] Last Admin: 11/06/17 21:15 Dose: 10 mg Oxycodone/Acetaminophen (Percocet 5/325 Mg Tab) 1 tab PO Q4H PRN PRN Reason: Pain, moderate (4-7) Stop: 11/09/17 16:12 Last Admin: 11/07/17 13:18 Dose: 1 tab Pantoprazole Sodium (Protonix Ec Tab) 40 mg PO DAILY [facility] Last Admin: 11/07/17 10:22 Dose: Not Given Pregabalin (Lyrica) 25 mg PO BID [facility] Rosuvastatin Calcium (Crestor) 5 mg PO HS [facility] Last Admin: 11/06/17 21:15 Dose: 5 mg Trazodone HCl (Desyrel) 100 mg PO HS [facility] Last Admin: 11/06/17 21:15 Dose: 100 mg Vitamin B Complex/Vit C/Folic Acid (Nephro-Benjamin) 1 tab PO 0800 [facility] Last Admin: 11/07/17 08:45 Dose: 1 tab - Labs Labs: 11/06/17 14:04 11/06/17 14:04 PT 12.0 SECONDS (9.7-12.2) 11/03/17 20:32 INR 1.1 11/03/17 20:32 APTT 52 SECONDS (21-34) H D 11/07/17 11:40
--- NOTE | 2017-11-07 18:55 | PN ---
Copied To: Amada Sanders MD Attending MD: Amada Sanders MD DATE: 11/07/2017 LOCATION [address], bed A. SUBJECTIVE: This is a 67-year-old male seen and examined in rounds without significant clinical changes or reported active bleeding, received hemodialysis today with less dyspepsia and nausea, somewhat tolerating oral intake. The entire chart is reviewed including but not limited to most recent lab and radiology study results, current and the previous medication list, current and the previous medical events, and today's PT is 52. Blood glucose level 116, troponin level 2.21. PHYSICAL EXAMINATION: GENERAL: A 67-year-old male. VITAL SIGNS: Afebrile with blood pressure of 128/54, respiratory rate of 20 to 22 with heart rate of 76. HEENT: Showed pale, dry oral mucous membrane. Nonicteric sclerae. LUNGS: Few scattered crepitation. Decreased air entry at bases. HEART: Positive S1 and S2. ABDOMEN: Soft with mild generalized tenderness. No mass or organomegaly. No rebound tenderness or guarding. EXTREMITIES: Without significant clubbing, cyanosis or edema. NEUROLOGICAL: No reported new neurological deficit, sensory or motor. IMPRESSION: 1. Re-exacerbation of peptic ulcer disease. 2. Elevated troponin level with possible recent myocardial infarction. 3. Known history of hypertension, coronary artery disease with status post coronary artery bypass graft. 4. known history of end-stage renal disease, on hemodialysis. 5. Anemia, most likely secondary to above. SUGGESTIONS: 1. Continue current management. 2. Follow up in cancer markers. 3. Antireflux measure. Guaiac all the stools every day x3. 4. Further recommendation to follow. Amada Sanders MD
--- NOTE | 2017-11-07 21:08 | PN ---
Copied To: Christian Hebert MD Attending MD: Christian Hebert MD DATE: 11/07/2017 SUBJECTIVE: The patient is currently undergoing hemodialysis. He is still experiencing bilateral foot pain. He denies any substernal chest pain. PHYSICAL EXAMINATION VITAL SIGNS: Blood pressure 115/56, heart rate 87, temperature 98.7, respirations 20. HEENT: Pale conjunctivae. CHEST: Clear. HEART : S1 AND S2 regular. ABDOMEN: Soft. EXTREMITIES: No edema. LABORATORY DATA: Today's troponin is coming down at 2.21. Today's blood sugars are 116 and 123 respectively. Arterial Doppler of the lower extremity impression on the right side the right ankle pressure index of the right lower extremity is nondiagnostic due to possible arterial wall calcification; however, pulse volume recordings waveform are suggestive of superficial femoral artery, popliteal, tibial and distal small artery level disease. On the left side, ankle pressure index of the left lower extremity is nondiagnostic due to possible arterial wall calcification; however, pulse volume recording waveforms are suggestive of superficial femoral, popliteal, tibial and distal small arterial disease. ASSESSMENT: 1. Status post inferior wall myocardial infarction. 2. End-stage renal disease, on hemodialysis. 3. Uncontrolled diabetes mellitus. 4. Hypertension. 5. Peripheral vascular disease. RECOMMENDATIONS: I did request to renew telemetry. Continue Crestor at 5 mg once a day, change intravenous heparin to subcutaneous heparin 5000 units every eight hours, resume aspirin and Plavix as there is no contraindication I see on the system, they are on hold. Continue Procrit at 10,000 units Sunday, Sunday and Sunday. Continue Toprol XL at 25 mg daily, still awaiting coronary artery bypass surgery report to come either from [facility] or from Dr. Garcia's office; however, the patient is not a candidate for any percutaneous vascular intervention or repeat coronary artery bypass surgery. Christian Hebert MD
--- NOTE | 2017-11-07 21:42 | CP.PCM.PN ---
Subjective - Date & Time of Evaluation Date of Evaluation: 11/07/17 Time of Evaluation: 21:40 - Subjective Subjective: hypoglycemia in diabetes Objective - Vital Signs/Intake and Output Vital Signs (last 24 hours): Temp Pulse Resp BP Pulse Ox 98.7 F 76 20 115/56 L 96 11/07/17 15:00 11/07/17 18:00 11/07/17 15:00 11/07/17 15:00 11/07/17 15:00 - Medications Medications: Current Medications Aspirin (Aspirin Chewable) 81 mg PO DAILY [facility] Last Admin: 11/07/17 10:21 Dose: Not Given Calcium Acetate (Phoslo) 667 mg PO TIDCC [facility] Last Admin: 11/07/17 17:16 Dose: 667 mg Clopidogrel Bisulfate (Plavix) 75 mg PO DAILY [facility] Last Admin: 11/07/17 10:22 Dose: Not Given Epoetin Adam (Procrit) 10,000 unit IV MWF [facility] Epoetin Adam (Procrit) 4,000 unit IV MWF ONE Stop: 11/09/17 12:01 Glimepiride (Amaryl) 2 mg PO DAILY [facility] Last Admin: 10/30/17 09:37 Dose: 2 mg Heparin Sodium (Porcine) (Heparin) 5,000 units SC Q8 [facility] Insulin Human Regular (Novolin R) 0 unit SC TIDPC [facility] PRN Reason: Protocol Last Admin: 11/07/17 14:50 Dose: Not Given Lidocaine (Lidoderm) 1 ea TD DAILY [facility] Last Admin: 11/07/17 10:21 Dose: Not Given Metoprolol Succinate (Toprol Xl) 25 mg PO DAILY [facility] Last Admin: 11/07/17 10:22 Dose: Not Given Montelukast Sodium (Singulair) 10 mg PO HS [facility] Last Admin: 11/06/17 21:15 Dose: 10 mg Oxycodone/Acetaminophen (Percocet 5/325 Mg Tab) 1 tab PO Q4H PRN PRN Reason: Pain, moderate (4-7) Stop: 11/09/17 16:12 Last Admin: 11/07/17 17:16 Dose: 1 tab Pantoprazole Sodium (Protonix Ec Tab) 40 mg PO DAILY [facility] Last Admin: 11/07/17 10:22 Dose: Not Given Pregabalin (Lyrica) 25 mg PO BID [facility] Last Admin: 11/07/17 17:16 Dose: 25 mg Rosuvastatin Calcium (Crestor) 5 mg PO HS [facility] Last Admin: 11/06/17 21:15 Dose: 5 mg Trazodone HCl (Desyrel) 100 mg PO HS [facility] Last Admin: 11/06/17 21:15 Dose: 100 mg Vitamin B Complex/Vit C/Folic Acid (Nephro-Benjamin) 1 tab PO 0800 [facility] Last Admin: 11/07/17 08:45 Dose: 1 tab - Labs Labs: 11/06/17 14:04 11/06/17 14:04 PT 12.0 SECONDS (9.7-12.2) 11/03/17 20:32 INR 1.1 11/03/17 20:32 APTT 52 SECONDS (21-34) H D 11/07/17 11:40 Assessment and Plan (1) Hypoglycemia associated with diabetes Assessment & Plan: Endocrine consult F/U for hypoglycemia William Richard is 67 y/o admitted for abdominal pain ,s/p CT done showed moderately dilated small bowel loops in LUQ. s/p surgical evaluation and no surgical intervention , pt tolerated diet and having BM pt. with recurrent hypoglycemia as per pt's nurse asymptomatic , was on glimepride which was stopped , ESRD on HD s/p ICU admission for chest pain /elevated troponin s/p cardiac cath yesterday & transfered back to floor yesterday blood glucose log :100's , no hypoglycemia , s/p HD today as per pt.'s nurse still with poor intake Allergy NKDA Past medical history:HTN , hyperlipidemia ,CAD Past surgical history: cholecystectomy, Bilroth I. CABG, a-v graft Psychiatry history: (+) psychiatry disorder Social history: occasional smoking , no ETOH use or illicit drug use Family history: irrelevant ROS: Constitutional: no fever, tiredness/weakness. HEENT: no earache, change in voice .Respiratory: no cough, sob . CVS :no chest pain, no palpitations . Abdomen: no abdominal pain, no nausea /vomiting, no change bowel movement. [employer]ER : no light-headedness, dizziness. Extremities: no edema, no tremors. Skin: no itching, no rash Physical exam Well-developed Awake & alert ,NAD HEENT: norm cephalic, atraumatic, no lid lag , no exophthalmos NECK: supple, no palpable lymphadenopathy THYROID: no palpable thyromegaly, not tender CHEST: fair air entry, bilateral, CVS: S1,S2 ABDOMEN: bowel sound present, benign, obese, no wide purple striae , no bruises EXTREMITIES: no edema, clubbing or cyanosis, no palpable hand tremors Skin: no acanthosis nigricans -lab: hba1c 5.4 , TSH 1.77 , TG 145 Assessment: sever recurrent asymptomatic hypoglycemia , sulfonyluria induced , resolved uncontrolled DM ESRD on HD abdominal pain Chest pain/NSTEMI s/p cath plan : on Novoloin R low dose coverage start > 200 with meals if eats > 70% of the meal t/c start trajenta 5 mg po qd with breakfast we will follow with you. Hunter Garcia # [phone] office Fridays & Saturdays address: [address] [place] [address] ,phone # [phone] ,FAX [phone] Status: Acute (2) ESRD (end stage renal disease) on dialysis Status: Acute (3) Abdominal pain Status: Acute (4) Uncontrolled diabetes mellitus Status: Acute (5) Chest pain Status: Acute
--- NOTE | 2017-11-08 07:09 | PN ---
Copied To: Sd Garcia MD Attending MD: Sd Garcia MD DATE: 11/07/2017 SUBJECTIVE: Today, the patient is alert and awake. Feels weak. The patient denies any chest pain. No shortness of breath. The patient was seen on dialysis today. PHYSICAL EXAMINATION: VITAL SIGNS: The patient has blood pressure of 115/56, pulse 67, respiration 20, and temperature 98.7. NECK: Supple. No JVD. LUNGS: Have some fine rales at the bases. HEART: Regular rate and rhythm. ABDOMEN: Soft. Mild tenderness in the left lower quadrant and positive bowel sounds. EXTREMITIES: There is no edema. There is an AV fistula in the left arm. LABORATORY DATA: Showed WBC 5.7, hemoglobin 8.9, hematocrit 27, and platelets are 268. Chemistry showed sodium 137, potassium 4.9, chloride 96, bicarb 29, BUN 41, creatinine 6.7, but the troponin was 3.3, today that is 2.21. ASSESSMENT AND PLAN: The patient will remain on heparin drip. The patient agreed to continue to monitor troponin and . The case was discussed with Gillian Diaz, the nurse practitioner. Sd Garcia MD
[2017-11-08 07:48] VITALS: RESP 20
[2017-11-08] MEDS: Oxycodone/Acetaminophen 5/325 mg Tab PO PRN ×2 (08:07→12:46)
[2017-11-08] MEDS: Multivitamin Vitamin B Complex (Nephro-Vite) Tab PO SCH (08:08)
[2017-11-08] MEDS: (Novolin R) Insulin Human Regular 100 units/ml vial SC SCH ×2 (08:56→12:44)
[2017-11-08] MEDS: Pantoprazole 40 mg EC Tab PO SCH (09:24)
[2017-11-08] MEDS: Lidocaine 5% Patch TD SCH (09:24)
[2017-11-08] MEDS: Metoprolol Succinate 25 mg XL Tab PO SCH (09:24)
--- NOTE | 2017-11-08 11:47 | PN ---
Copied To: Amada Sanders MD Attending MD: Amada Sanders MD DATE: 11/08/2017 LOCATION: 564, bed B. SUBJECTIVE: This is a 67-year-old male seen and examined in rounds without significant clinical changes or reported active bleeding. No reported chest pain or palpitation, but intermittent period of mild nausea with dyspepsia. No reported actual shortness of breath and no evidence of active GI bleeding so far. The patient somewhat tolerating oral intake well. The entire chart is reviewed including but not limited to the most recent lab and radiology study results, current and the previous medication list, current and the previous medical events, and today's labs still pending. The latest PTT was 52 and blood glucose level 117. The patient had been on heparin IV drip. PHYSICAL EXAMINATION: GENERAL: A 67-year-old male. VITAL SIGNS: Temperature of 99.4, pulse of 82, respiratory rate 18 to 20, blood pressure 110/58. HEENT: Showed pale, dry oral mucous membrane. Nonicteric sclerae. LUNGS: Few scattered crepitation. Increased air entry at bases. HEART: Positive S1 and S2. ABDOMEN: Soft. Bowel sounds are present with slight generalized tenderness. No mass or organomegaly. No rebound tenderness or guarding. EXTREMITIES: With mild lower extremity edematous changes. No clubbing or cyanosis. NEUROLOGICAL: No reported new neurological deficits, sensory or motor. Peripheral pulses are present bilaterally, but decreased. IMPRESSION: 1. Re-exacerbation of peptic ulcer disease. 2. Hypertension, status post inferior wall myocardial infarction. 3. Known history of peripheral vascular disease. 4. Poorly-controlled diabetes mellitus. 5. End-stage renal disease, on hemodialysis. 6. Anemia, most likely secondary to above; however, the possibility of upper versus lower gastrointestinal blood loss to be kept in mind. 7. Known history of coronary artery disease with status post coronary artery bypass surgery. SUGGESTIONS: 1. Continue current management. 2. Followup on cancer markers. 3. Repeat stool for occult blood. 4. Further recommendation to follow. Amada Sanders MD [facility] # [id number]
--- NOTE | 2017-11-08 12:19 | CP.PCM.PN ---
Subjective - Date & Time of Evaluation Date of Evaluation: 11/08/17 Time of Evaluation: 12:19 - Subjective Subjective: Nephrology Consultation Note: Assessment: stable pain abdomen, missed HD NSTEMI Hypoglycemia esophageal ulcer and gastritis on EGD 10/12/17, SBO Diabetic chronic Kidney Disease (E11.22) Hypertensive Chronic Kidney Disease (I12.0) End stage renal disease (N18.6) dependence on hemodialysis (Z99.2) (MWF) via [facility] Anemia (D64.9), Hyperphosphatemia (E83.39), Secondary Hyperparathyroidism (E21.1 ), HTN (I12.0) CAD s/p CABG, active smoker hx of peptic ulcer disease Plan: Will plan for HD tomorrow as MWF schedule as ordered. continue with Nephrovite 1 tab/day. last HB 8.9 hence added HARINDER with HD. consider PRBC as needed maintain hemodynamics stable, BP on low side, not on bp meds except lopressor due to cardiac reasons continue with phos binders as phoslo Glycemic control. avoid glimerpide. can use non-renally excreted sulphonylurea such as glipizide (but not long acting) instead, if needed. Endocrine following for DM management. Further work up/management as per primary team Dose meds/antibiotics for ESRD status. Avoid fleets enema/magnesium based laxatives. GI cardiology following continue with PPI Thanks for allowing me to participate in care of your patient. Will follow patient with you. Please call if any Qs. had d/w team Dr Solo Valentino Office: [phone] Reason for consult: ESRD management HPI: Pt is a 67 M with hx of ESRD on hemodialysis (MWF) via [facility] but non- compliant, last dialysis last week @[facility], chronic anemia, hyperphosphatemia, secondary hyperparathyroidism, Diabetes Mellitus, hypertension, CAD s/p CABG, active smoker, hx of partial gastrectomy, SBO and peptic ulcer bleed presented with complaints of worsening abdomen pain and admitted for further management renal consult for ESRD management denies CP/sob/nausea/vomiting ROS: Denies chest pain, palpitation, shortness of breath, leg swelling now. c/o leg pains and got vascular study for it Physical Examination: General Appearance: in no acute respiratory distress Vitals reviewed and noted as below Head; Atraumatic, normocephalic Lungs: Normal respiratory rate/effort. Breath sounds bilateral equal and clear Heart: normal rate. s1s2 normal. No rub or gallop. has CABG scar Extremities: no edema. No varicose veins Neurological: Patient is awake alert follows commands, no focal deficit Skin: Warm and dry. Normal turgor. No rash. Palpitation: Normal elasticity for age Abdomen: Abdomen is soft. Bowel sounds +. There is mild epigastric abdominal tenderness, no guarding/rigidity or organomegaly. prior surgical scars+ Labs/imaging reviewed. Past medical history, past surgical history, family history, social history, allergy reviewed and noted as below Family Hx: no hx of CKD. Non contributory Objective - Vital Signs/Intake and Output Vital Signs (last 24 hours): Temp Pulse Resp BP Pulse Ox 98.5 F 91 H 20 142/66 97 11/08/17 07:00 11/08/17 07:00 11/08/17 07:00 11/08/17 07:00 11/08/17 07:00 - Medications Medications: Current Medications Aspirin (Aspirin Chewable) 81 mg PO DAILY [facility] Last Admin: 11/08/17 09:24 Dose: 81 mg Calcium Acetate (Phoslo) 667 mg PO TIDCC [facility] Last Admin: 11/08/17 08:08 Dose: 667 mg Clopidogrel Bisulfate (Plavix) 75 mg PO DAILY [facility] Last Admin: 11/08/17 09:24 Dose: 75 mg Epoetin Adam (Procrit) 10,000 unit IV MWF [facility] Epoetin Adam (Procrit) 4,000 unit IV MWF [facility] Glimepiride (Amaryl) 2 mg PO DAILY [facility] Last Admin: 10/30/17 09:37 Dose: 2 mg Heparin Sodium (Porcine) (Heparin) 5,000 units SC Q8 [facility] Last Admin: 11/08/17 05:29 Dose: 5,000 units Insulin Human Regular (Novolin R) 0 unit SC TIDPC [facility] PRN Reason: Protocol Last Admin: 11/08/17 08:56 Dose: Not Given Lidocaine (Lidoderm) 1 ea TD DAILY [facility] Last Admin: 11/08/17 09:24 Dose: 1 ea Metoprolol Succinate (Toprol Xl) 25 mg PO DAILY [facility] Last Admin: 11/08/17 09:24 Dose: 25 mg Montelukast Sodium (Singulair) 10 mg PO HS [facility] Last Admin: 11/07/17 22:16 Dose: 10 mg Oxycodone/Acetaminophen (Percocet 5/325 Mg Tab) 1 tab PO Q4H PRN PRN Reason: Pain, moderate (4-7) Stop: 11/09/17 16:12 Last Admin: 11/08/17 08:07 Dose: 1 tab Pantoprazole Sodium (Protonix Ec Tab) 40 mg PO DAILY [facility] Last Admin: 11/08/17 09:24 Dose: 40 mg Pregabalin (Lyrica) 25 mg PO BID [facility] Last Admin: 11/08/17 09:24 Dose: 25 mg Rosuvastatin Calcium (Crestor) 5 mg PO [facility] Last Admin: 11/07/17 22:16 Dose: 5 mg Trazodone HCl (Desyrel) 100 mg PO HS [facility] Last Admin: 11/07/17 22:16 Dose: 100 mg Vitamin B Complex/Vit C/Folic Acid (Nephro-Benjamin) 1 tab PO 0800 [facility] Last Admin: 11/08/17 08:08 Dose: 1 tab - Labs Labs: 11/06/17 14:04 11/06/17 14:04 PT 12.0 SECONDS (9.7-12.2) 11/03/17 20:32 INR 1.1 11/03/17 20:32 APTT 52 SECONDS (21-34) H D 11/07/17 11:40
--- NOTE | 2017-11-08 12:30 | CP.PCM.PN ---
Subjective - Date & Time of Evaluation Date of Evaluation: 11/08/17 Time of Evaluation: 11:00 - Subjective Subjective: Podiatry Progress Note for Dr. Dobson: 67 yo male patient, with PMHx of DM, HTN, ESRD, CAD, seen and evaluated with attending Dr. Dobson for heel pain consistent with plantar fasciitis. Patient is seen resting comfortably in bed, in NAD, and AA0x3. Reports heel pains. Today patient complains of discomfort nails. Patient denies any trauma to the area. Patient denies any other pedal complaints. Patient denies N/V/F/SOB. Objective - Vital Signs/Intake and Output Vital Signs (last 24 hours): Temp Pulse Resp BP Pulse Ox 98.5 F 91 H 20 142/66 97 11/08/17 07:00 11/08/17 07:00 11/08/17 07:00 11/08/17 07:00 11/08/17 07:00 - Medications Medications: Current Medications Aspirin (Aspirin Chewable) 81 mg PO DAILY [facility] Last Admin: 11/08/17 09:24 Dose: 81 mg Calcium Acetate (Phoslo) 667 mg PO TIDCC [facility] Last Admin: 11/08/17 08:08 Dose: 667 mg Clopidogrel Bisulfate (Plavix) 75 mg PO DAILY [facility] Last Admin: 11/08/17 09:24 Dose: 75 mg Epoetin Adam (Procrit) 10,000 unit IV MWF [facility] Epoetin Adam (Procrit) 4,000 unit IV MWF [facility] Glimepiride (Amaryl) 2 mg PO DAILY [facility] Last Admin: 10/30/17 09:37 Dose: 2 mg Heparin Sodium (Porcine) (Heparin) 5,000 units SC Q8 [facility] Last Admin: 11/08/17 05:29 Dose: 5,000 units Insulin Human Regular (Novolin R) 0 unit SC TIDPC [facility] PRN Reason: Protocol Last Admin: 11/08/17 08:56 Dose: Not Given Lidocaine (Lidoderm) 1 ea TD DAILY [facility] Last Admin: 11/08/17 09:24 Dose: 1 ea Metoprolol Succinate (Toprol Xl) 25 mg PO DAILY [facility] Last Admin: 11/08/17 09:24 Dose: 25 mg Montelukast Sodium (Singulair) 10 mg PO [facility] Last Admin: 11/07/17 22:16 Dose: 10 mg Oxycodone/Acetaminophen (Percocet 5/325 Mg Tab) 1 tab PO Q4H PRN PRN Reason: Pain, moderate (4-7) Stop: 11/09/17 16:12 Last Admin: 11/08/17 08:07 Dose: 1 tab Pantoprazole Sodium (Protonix Ec Tab) 40 mg PO DAILY [facility] Last Admin: 11/08/17 09:24 Dose: 40 mg Pregabalin (Lyrica) 25 mg PO BID [facility] Last Admin: 11/08/17 09:24 Dose: 25 mg Rosuvastatin Calcium (Crestor) 5 mg PO [facility] Last Admin: 11/07/17 22:16 Dose: 5 mg Trazodone HCl (Desyrel) 100 mg PO [facility] Last Admin: 11/07/17 22:16 Dose: 100 mg Vitamin B Complex/Vit C/Folic Acid (Nephro-Benjamin) 1 tab PO 0800 [facility] Last Admin: 11/08/17 08:08 Dose: 1 tab - Labs Labs: 11/06/17 14:04 11/06/17 14:04 PT 12.0 SECONDS (9.7-12.2) 11/03/17 20:32 INR 1.1 11/03/17 20:32 APTT 52 SECONDS (21-34) H D 11/07/17 11:40 - Constitutional Appears: Well, Non-toxic, No Acute Distress - Extremities Exam Extremities Exam: absent: Calf Tenderness Additional comments: Vascular: DP 2/4, PT 1/4 bilaterally, CFT < 3 seconds to all digits, no edema noted, TG warm to warm Ortho: Pain upon palpation of bilateral medial calcaneal tubercle. MMT 4/5 bilaterally to all compartments, no pain upon calf compression bilaterally. Painful toenails to the digits Neuro: Gross sensation intact, protective sensation diminished Derm: No open lesions, no erythema, no cellulitis, no streaking, no fluctuance, no clinical signs of infection to b/l feet. Elongated, thicken nails. - Neurological Exam Neurological Exam: Alert, Awake, Oriented x3 - Psychiatric Exam Psychiatric exam: Normal Affect, Normal Mood Assessment and Plan - Assessment and Plan (Free Text) Assessment: 67 y.o male with likely bilateral plantar fasciitis and painful elongated toenails Plan: Patient seen and evaluated with all questions and concerns addressed with attending Dr. Dobson Chart, vitals, and labs appreciated; afebrile and absent leukocytosis X-ray's- prominent plantar and dorsal calcaneal spurring Lidoderm patches ordered to be placed on heels 12 hrs on 12 hours off Educated on stretching exercises Will bring nail nippers tomorrow to cut toenails Will continue to follow up with patient while still in house
[2017-11-08 15:42] VITALS: BP 106/66; PULSE 80; TEMP 98.1; O2SAT 96
--- NOTE | 2017-11-08 16:35 | CP.PCM.PN ---
Subjective - Date & Time of Evaluation Date of Evaluation: 11/08/17 Time of Evaluation: 16:35 - Subjective Subjective: patient was admitted for anemia appear to have an inferior wall UT but not suitable for bypass sx per back sewer denies chest pain or sob no sign of distress noted Objective - Vital Signs/Intake and Output Vital Signs (last 24 hours): Temp Pulse Resp BP Pulse Ox 98.1 F 80 20 106/66 96 11/08/17 15:00 11/08/17 15:00 11/08/17 15:00 11/08/17 15:00 11/08/17 15:00 - Medications Medications: Current Medications Aspirin (Aspirin Chewable) 81 mg PO DAILY [facility] Last Admin: 11/08/17 09:24 Dose: 81 mg Calcium Acetate (Phoslo) 667 mg PO TIDCC [facility] Last Admin: 11/08/17 12:42 Dose: 667 mg Clopidogrel Bisulfate (Plavix) 75 mg PO DAILY [facility] Last Admin: 11/08/17 09:24 Dose: 75 mg Epoetin Adam (Procrit) 10,000 unit IV MWF [facility] Epoetin Adam (Procrit) 4,000 unit IV MWF [facility] Glimepiride (Amaryl) 2 mg PO DAILY [facility] Last Admin: 10/30/17 09:37 Dose: 2 mg Heparin Sodium (Porcine) (Heparin) 5,000 units SC Q8 [facility] Last Admin: 11/08/17 14:31 Dose: 5,000 units Insulin Human Regular (Novolin R) 0 unit SC TIDPC [facility] PRN Reason: Protocol Last Admin: 11/08/17 12:44 Dose: Not Given Lidocaine (Lidoderm) 1 ea TD DAILY [facility] Last Admin: 11/08/17 09:24 Dose: 1 ea Metoprolol Succinate (Toprol Xl) 25 mg PO DAILY [facility] Last Admin: 11/08/17 09:24 Dose: 25 mg Montelukast Sodium (Singulair) 10 mg PO HS [facility] Last Admin: 11/07/17 22:16 Dose: 10 mg Oxycodone/Acetaminophen (Percocet 5/325 Mg Tab) 1 tab PO Q4H PRN PRN Reason: Pain, moderate (4-7) Stop: 11/09/17 16:12 Last Admin: 11/08/17 12:46 Dose: 1 tab Pantoprazole Sodium (Protonix Ec Tab) 40 mg PO DAILY [facility] Last Admin: 11/08/17 09:24 Dose: 40 mg Pregabalin (Lyrica) 25 mg PO BID [facility] Last Admin: 11/08/17 09:24 Dose: 25 mg Rosuvastatin Calcium (Crestor) 5 mg PO HS [facility] Last Admin: 11/07/17 22:16 Dose: 5 mg Trazodone HCl (Desyrel) 100 mg PO HS [facility] Last Admin: 11/07/17 22:16 Dose: 100 mg Vitamin B Complex/Vit C/Folic Acid (Nephro-Benjamin) 1 tab PO 0800 [facility] Last Admin: 11/08/17 08:08 Dose: 1 tab - Labs Labs: 11/06/17 14:04 11/06/17 14:04 PT 12.0 SECONDS (9.7-12.2) 11/03/17 20:32 INR 1.1 11/03/17 20:32 APTT 52 SECONDS (21-34) H D 11/07/17 11:40 Assessment and Plan - Assessment and Plan (Free Text) Assessment: troponin trending down / hep drip dc / cont sc hep/not a candidate for cabg/ clear dr bryan for sabrina discuss with dr woods who clear for dc place under the service of dr woods at [facility]---call dr woods for admitting order Please f/u with Dr. Woods office in 1 week Please continue HD as scheduled - t.th.sat Please stop take your blood sugar medications Please follow a renal diet and moderate consistancy carbohydrate diet discuss with patient who agree and verbalized understanding
--- NOTE | 2017-11-08 21:16 | PN ---
Copied To: Christian Hebert MD Attending MD: Christian Hebert MD DATE: 11/08/2017 SUBJECTIVE: The patient denies chest pain or shortness of breath. He underwent hemodialysis today. PHYSICAL EXAMINATION: VITAL SIGNS: Blood pressure 106/66, heart rate 80, temperature 98.1, respiration 20. HEENT: Normocephalic. CHEST: Clear. HEART: S1 and S2 are regular. ABDOMEN: Soft. EXTREMITIES: No edema. LABORATORY DATA: Today's blood sugar is 150. Today's troponin is 1.67. I did review coronary artery bypass surgery from end of 02/2017 where the patient underwent double bypass surgery with three KULKARNI to the LAD and saphenous vein graft to the obtuse marginal branch which, I think, both occluded by now. ASSESSMENT: 1. Status post anterior ST-elevation myocardial infraction. 2. End-stage renal disease, on hemodialysis. 3. Uncontrolled diabetes mellitus. 4. History of peptic ulcer disease. RECOMMENDATIONS: Case was discussed with the medical team. The patient can be discharged on aspirin and Plavix therapy. The patient will be also started on Toprol-XL 25 mg once a day, and I recommended Percocet for his foot pain. I think medications will be Crestor 5 mg once a day, Amaryl 2 mg once a day. Christian Hebert MD
--- NOTE | 2017-11-09 00:34 | PN ---
Copied To: Sd Garcia MD Attending MD: Sd Garcia MD DATE: 11/08/2017 SUBJECTIVE: The patient was seen earlier and denies any shortness of breath. No chest pain. No dizziness. PHYSICAL EXAMINATION: VITAL SIGNS: The patient had earlier blood pressure of 161/50, went down to . Pulse 99, went down to 80. NECK: Supple. No JVD. LUNGS: Clear. HEART: Regular rate and rhythm. Positive murmur. ABDOMEN: Soft. No tenderness noted. EXTREMITIES: There is no edema, but there is AV fistula of the left arm. LABORATORY DATA: The patient had blood tests done. WBC is 5.7, hemoglobin 8.9, hematocrit 27, platelet is 268,000. Troponin went down to 1.67 and it keeps going down. ASSESSMENT AND PLAN: Plan is that the patient being now stable, case discussed with the general duty nurse. The patient will be transferred to subacute rehab. Sd Garcia MD
[2017-11-09] MEDS ORDERED: EPOETIN ALFA 4,000 UNIT/ML ML Dialysis IV SCH (09:00)
[2017-11-09] MEDS ORDERED: EPOETIN ALFA 4,000 UNIT/ML ML Dialysis IV ONE (12:00)
[2017-11-09] MEDS ORDERED: Epoetin Alfa 10,000 unit/ml Dialysis IV SCH (12:00)
--- NOTE | 2017-11-09 19:13 | DS ---
Copied To: Sd Garcia MD Attending MD: Sd Garcia MD HOSPITAL COURSE: The patient is a 67-year-old male who went to the emergency room because he was complaining of abdomina pain on and off and also the abdominal pain was progressively worsening, so the patient was seen and also the patient had some flatulence. The patient was advised to come to the emergency room for evaluation and the patient was admitted because of intestinal obstruction. The patient has history of end-stage renal disease, hypertension, also CABG x2, and coronary artery disease. The patient was admitted and had a consult with Dr. Urrutia and also with Dr. Mohamud in the past week, the surgeon. The patient had also a consult with Dr. Hebert, research physiologist. During the course of hospitalization, the patient had developed severe chest pain with ST-elevation [place]. The patient at this point was sent to ICU and had cardiac catheterization done to the occlusion of the saphenous vein, at present to the right coronary arteries and the patient was put also on medications, but the pain has subsided and the patient was discharged. The patient had received medications and the troponin that was very high has also decreased to 1.6. The case was discussed with Dr. Hebert, the research physiologist and also the for continuation of care and also some kind of physical therapy. Sd Garcia MD
== END 2017-11-08 18:32 | DRG 388 ==
LOC: C.ER 17:05 → C.9E 22:29 → C.3T 23:01 → C.9I 11-02 16:04 → C.5S 11-03 09:44
PROVIDERS: ADMIT Specialist; ATTEND Specialist
PROC: 5A1D70Z Performance of Urinary Filtration, Intermittent, Less than 6 Hours Per Day (ICD-10-PCS; principal; 2017-10-29)
PROC: 4A023N7 Measurement of Cardiac Sampling and Pressure, Left Heart, Percutaneous Approach (ICD-10-PCS; 2017-11-02)
PROC: B211YZZ Fluoroscopy of Multiple Coronary Arteries using Other Contrast (ICD-10-PCS; 2017-11-02)
PROC: B213YZZ Fluoroscopy of Multiple Coronary Artery Bypass Grafts using Other Contrast (ICD-10-PCS; 2017-11-02)
PROC: B215YZZ Fluoroscopy of Left Heart using Other Contrast (ICD-10-PCS; 2017-11-02)
DX: K56.2 Volvulus (principal); N18.6 End stage renal disease; I21.19 ST elevation (STEMI) myocardial infarction involving other coronary artery of inferior wall; I13.2 Hypertensive heart and chronic kidney disease with heart failure and with stage 5 chronic kidney disease, or end stage renal disease; N25.81 Secondary hyperparathyroidism of renal origin; I25.810 Atherosclerosis of coronary artery bypass graft(s) without angina pectoris; E46 Unspecified protein-calorie malnutrition; I25.2 Old myocardial infarction; I50.9 Heart failure, unspecified; E11.22 Type 2 diabetes mellitus with diabetic chronic kidney disease; E11.65 Type 2 diabetes mellitus with hyperglycemia; Z99.2 Dependence on renal dialysis; Z79.4 Long term (current) use of insulin; Z95.1 Presence of aortocoronary bypass graft; Z98.0 Intestinal bypass and anastomosis status; F17.210 Nicotine dependence, cigarettes, uncomplicated; Z91.15 Patient's noncompliance with renal dialysis; E11.649 Type 2 diabetes mellitus with hypoglycemia without coma

== ENCOUNTER 2018-03-15 20:55 | Inpatient (IN) | payer MEDICARE, MEDICAID ==
[2018-03-15 20:56] VITALS: BMI 30.9
--- NOTE | 2018-03-15 21:24 | C.PDOC ---
History Of Present Illness 67 y/o M c PMHx CAD, ESRD on HD MWF p/w chest pain x 4 days. Pain is L sided, nonradiating, intermittent, constant for the last 4 hours. States constant since finished dialysis today 4 hours ago. Denies fever, cough, dyspnea, vomiting. PMD [place] Time Seen by Provider: 03/15/18 20:57 Chief Complaint (Nursing): Chest Pain Past Medical History Vital Signs: Last Vital Signs Temp 97.8 F 03/15/18 21:01 Pulse 111 H 03/15/18 21:01 Resp 16 03/15/18 21:01 BP 99/56 L 03/15/18 21:01 Pulse Ox 98 03/15/18 21:01 - Medical History PMH: Anemia, CAD, CHF, Diabetes, Gastrointestinal Ulcer, HTN, Hypercholesterolemia, Hyperlipidemia, End Stage Renal Disease, Chronic Kidney Disease Denies: Kidney Stones Surgical History: CABG, Cholecystectomy - [facility] Procedures (10/29/17) EXCISION OF DESCENDING COLON, ENDO, DIAGN (02/26/17) EXCISION OF STOMACH, ENDO, DIAGN (02/26/17) FLUOROSCOPY OF LEFT HEART USING LOW OSMOLAR CONTRAST (07/29/16) FLUOROSCOPY OF LEFT HEART USING OTHER CONTRAST (10/29/17) FLUOROSCOPY OF MULT COR A GRAFT USING OTH CONTRAST (10/29/17) FLUOROSCOPY OF MULT COR ART USING L OSM CONTRAST (07/29/16) FLUOROSCOPY OF MULTIPLE CORONARY ARTERIES USING OTH CONTRAST (10/29/17) FLUOROSCOPY OF SING COR A GRAFT USING L OSM CONTRAST (07/29/16) HEMODIALYSIS (01/02/13) INSPECTION OF UPPER INTESTINAL TRACT, ENDO (10/09/17) MEASURE CARDIAC SAMPL & PRESSURE, BILATERAL, PERC (08/27/15) MEASURE OF CARDIAC SAMPL & PRESSURE, L HEART, PERC APPROACH (10/29/17) PACKED CELL TRANSFUSION (01/02/13) PERFORMANCE OF URINARY FILTRATION, MULTIPLE (08/27/15) PERFORMANCE OF URINARY FILTRATION, SINGLE (07/29/16) PLAIN RADIOGRAPHY OF MULT COR A GRAFT USING OTH CONTRAST (08/27/15) PLAIN RADIOGRAPHY OF MULT COR ART USING OTH CONTRAST (08/27/15) PLAIN RADIOGRAPHY OF RIGHT AND LEFT HEART USING OTH CONTRAST (08/27/15) TRANSFUSE NONAUT RED BLOOD CELLS IN PERIPH VEIN, PERC (02/26/17) VENOUS CATHETERIZATION FOR RENAL DIALYSIS (01/02/13) Family History: States: Unknown Family Hx - Social History Hx Tobacco Use: Yes Hx Alcohol Use: No Hx Substance Use: No - Immunization History Hx Tetanus Toxoid Vaccination: No Hx Influenza Vaccination: No Hx Pneumococcal Vaccination: No Review Of Systems Except As Marked, All Systems Reviewed And Found Negative. Constitutional: Negative for: Fever Gastrointestinal: Negative for: Vomiting Physical Exam - Physical Exam Additional Physical Exam Comments: Constitutional: No acute distress. Head: Normocephalic. Atraumatic. Eyes: PERRL. ENT: Moist mucous membranes. Neck: Supple. Cardiovascular: Tachycardic. Radial pulse 2+ bilaterally. Chest: No tenderness. Respiratory: Clear to auscultation bilaterally. GI: Soft Back: No CVA tenderness. Musculoskeletal: No tenderness or swelling of extremities. Skin: No rash. Midline sternotomy scar, cholecystectomy scar, midline laparatomy scar. Neurologic: Alert, no focal deficit. ED Course And Treatment - Laboratory Results Result Diagrams: 03/15/18 21:27 03/15/18 21:27 O2 Sat by Pulse Oximetry: 98 Medical Decision Making Medical Decision Making: EKG Sinus rhythm 110 bpm, RBBB. No ST elevations. Troponin 0.12. Dr. Hebert covering for Dr. Garcia accepts patient to his service. CXR no consolidation. Disposition - Disposition Disposition: HOSPITALIZED Disposition Time: 22:06 Condition: GUARDED - POA Core Measure Indicators: Chest Pain - Clinical Impression Clinical Impression: Chest pain
[2018-03-15 21:34] LABS: EOS # 0.3 K/uL (0.0-0.7); EOS % 3.8 % (0.0-4.0); NRBC % 0.1 % (0.0-2.0)
[2018-03-15 21:43] LABS: PROTHROMBIN TIME 11.2 SECONDS (9.7-12.2)
[2018-03-15 21:44] LABS: ALB/GLOB RATIO 1.4 (1.0-2.1); ALBUMIN 5.1 g/dL (3.5-5.0)
[2018-03-15 21:59] LABS: BASO % 0.6 % (0.0-2.0); LYMPH % 13.5 % (20.0-40.0); MEAN CORPUSCULAR HEMOGLOBIN 28.1 pg (27.0-31.0); MEAN CORPUSCULAR HGB CONC 32.4 g/dL (33.0-37.0); MEAN PLATELET VOLUME 10.1 fL (7.2-11.7); MONO # 1.2 K/uL (0.0-0.8); MONO % 15.1 % (0.0-10.0); NEUT # 5.2 K/uL (1.8-7.0); RBC 5.86 Mil/uL (4.40-5.90); RED CELL DISTRIBUTION WIDTH 18.1 % (11.5-14.5); WHITE BLOOD COUNT 7.7 K/uL (4.8-10.8)
[2018-03-15 22:00] LABS: HEMOGLOBIN 16.5 g/dL (12.0-18.0); MEAN CELL VOLUME 86.9 fL (80.0-94.0)
[2018-03-15 22:01] LABS: CK-MB 1.34 ng/mL (0.0-3.38); TROPONIN I 0.12 ng/mL (0.00-0.120)
--- NOTE | 2018-03-16 10:11 | RAD ---
Date of service: 03/15/2018 HISTORY: chest pain COMPARISON: 10/09/2017. FINDINGS: There is stable appearance of left endovascular axillary stent graft LUNGS: The lungs are well inflated and clear. There is a stable calcified granuloma in the right mid lung. There is stable linear scarring in the left lateral lower lobe. PLEURA: No pleural effusions or pneumothorax. CARDIOVASCULAR: The heart is normal in size. Status post CABG with no aortic atherosclerotic calcification present. OSSEOUS STRUCTURES: Within normal limits for the patient's age. Stable small sclerotic lesion in the left humeral head is statistically most compatible with a bone island. VISUALIZED UPPER ABDOMEN: Normal. OTHER FINDINGS: None. IMPRESSION: No active pulmonary disease. Small sclerotic lesion in the left humeral head is statistically most compatible with a bone island however sclerotic metastasis cannot be entirely excluded. Correlation with known or suspected history of cancer particularly prostate cancer is advised. If clinically indicated, correlation with radionuclide bone scan may be performed. The final report is tagged to the PA review folder.
[2018-03-16 11:21] LABS: TROPONIN I 0.119 ng/mL (0.00-0.120)
--- NOTE | 2018-03-16 14:26 | CP.PCM.CON ---
History of Present Illness - History of Present Illness History of Present Illness: Nephrology Consultation Note: Assessment: stable Chest pain Epigastric pain Diabetic chronic Kidney Disease (E11.22) Hypertensive Chronic Kidney Disease (I12.0) End stage renal disease (N18.6) dependence on hemodialysis (Z99.2) (MWF) via AVG Anemia (D64.9), Hyperphosphatemia (E83.39), Secondary Hyperparathyroidism (E21.1), HTN (I12.0) CAD s/p CABG, active smoker hx of peptic ulcer disease Plan: HD MWF, s/p hd yesterday continue with Nephrovite 1 tab/day lhold off on HARINDER resume home bp meds continue with renvela, will check phos low Glycemic control Further work up/management as per primary team Chief Complaint; Chest pain Reason for consult: ESRD management HPI: Pt is a 67 M with hx of ESRD on hemodialysis (MWF) via AVG, often non complaint, anemia, hyperphosphatemia, secondary hyperparathyroidism, Diabetes Mellitus, hypertension, CAD s/p CABG, active smoker, hx of partial gastrectomy, SBO and peptic ulcer bleed presented with complaints of chest pain, and epigastric pain w/ episode of emesis - nb/nb. He was admitted for further management renal consult for ESRD management CP currently improved - felt like stabbing sensation yesterday ROS: a full detailed ros is negative except as in my hpi Physical Examination: General Appearance: Comfortable, in no acute respiratory distress, co-operative Vitals reviewed and noted as below Head; Atraumatic, normocephalic ENT: no ulcers no thrush. Tongue is midline. Oropharynx: no rash or ulcers. EYES: Pupils are equal, round and reactive to light accommodation. Eye muscles and extraocular movement intact. Sclera is anicteric. Neck; supple no lymphadenopathy, no thyromegaly or bruit Lungs: Normal respiratory rate/effort. Breath sounds bilateral equal and clear Heart: normal rate. s1s2 normal. No rub or gallop. has CABG scar Extremities: no edema. No varicose veins Neurological: Patient is awake alert follows commands, no focal deficit Skin: Warm and dry. Normal turgor. No rash. Palpitation: Normal elasticity for age Abdomen: Abdomen is soft. Bowel sounds +. There is epigastric abdominal tenderness, no guarding/rigidity or organomegaly. prior surgical scars+ Psych: limited insight. normal affect/mood MSK: no joint tenderness or swelling. Digits and nails normal, no deformity : kidney or bladder not palpable Access: AVG Labs/imaging reviewed. Past medical history, past surgical history, family history, social history, allergy reviewed and noted as below Family Hx: no hx of CKD. Non contributory Past Patient History - Past Medical History & Family History Past Medical History?: Yes - Past Social History Smoking Status: Former Smoker - CARDIAC Hx Cardiac Disorders: Yes Hx Congestive Heart Failure: Yes Hx Hypercholesterolemia: Yes Hx Hypertension: Yes - PULMONARY Hx Respiratory Disorders: No - NEUROLOGICAL Hx Neurological Disorder: No - HEENT Hx HEENT Problems: No - RENAL Hx Chronic Kidney Disease: Yes Date of Last Dialysis Treatment: 03/15/18 Hx Kidney Stones: No - ENDOCRINE/METABOLIC Hx Endocrine Disorders: Yes Hx Diabetes Mellitus Type 2: Yes - HEMATOLOGICAL/ONCOLOGICAL Hx Blood Disorders: Yes Hx Anemia: Yes - INTEGUMENTARY Hx Dermatological Problems: No - MUSCULOSKELETAL/RHEUMATOLOGICAL Hx Musculoskeletal Disorders: No Hx Falls: No - GASTROINTESTINAL Hx Gastrointestinal Disorders: Yes - GENITOURINARY/GYNECOLOGICAL Hx Genitourinary Disorders: No - PSYCHIATRIC Hx Psychophysiologic Disorder: No Hx Substance Use: No - SURGICAL HISTORY Hx Surgeries: Yes Hx Cholecystectomy: Yes Hx Coronary Artery Bypass Graft: Yes - ANESTHESIA Hx Anesthesia: Yes Hx Anesthesia Reactions: No Hx Malignant Hyperthermia: No Meds Allergies/Adverse Reactions: Allergies Allergy/AdvReac Type Severity Reaction Status Date / Time No Known Allergies Allergy Verified 03/15/18 21:11 - Medications Medications: Current Medications Albuterol (Ventolin Hfa 90 Mcg/Actuation (8 G)) 2 puff IH QID [facility] Famotidine (Pepcid) 20 mg PO DAILY [facility] Last Admin: 03/16/18 09:14 Dose: 20 mg Heparin Sodium (Porcine) (Heparin) 5,000 units SC Q8 [facility] Last Admin: 03/16/18 13:37 Dose: 5,000 units Influenza Virus Vaccine (Fluzone Quad [id number]) 60 mcg IM .ONCE ONE Stop: 03/17/18 12:01 Metoprolol Tartrate (Lopressor) 25 mg PO BID [facility] Last Admin: 03/16/18 10:00 Dose: 25 mg Morphine Sulfate (Morphine) 2 mg IVP Q6 PRN PRN Reason: Pain, severe (8-10) Ondansetron HCl (Zofran Inj) 4 mg IVP Q8 PRN PRN Reason: Nausea/Vomiting Last Admin: 03/16/18 09:13 Dose: 4 mg Pneumococcal Polyvalent Vaccine (Pneumovax 23 Vaccine) 0.5 ml IM .ONCE ONE Stop: 03/17/18 14:01 Pregabalin (Lyrica) 25 mg PO DAILY [facility] Last Admin: 03/16/18 09:10 Dose: 25 mg Rosuvastatin Calcium (Crestor) 5 mg PO HS [facility] Last Admin: 03/15/18 23:33 Dose: 5 mg Sevelamer Carbonate (Renvela) 800 mg PO TID [facility] Last Admin: 03/16/18 13:37 Dose: 800 mg Sucralfate (Carafate Tab) 1 gm PO TID [facility] Last Admin: 03/16/18 13:37 Dose: 1 gm Results - Vital Signs Recent Vital Signs: Last Vital Signs Temp 97.4 F L 03/16/18 08:37 Pulse 91 H 03/16/18 08:37 Resp 20 03/16/18 08:37 BP 136/79 03/16/18 10:00 Pulse Ox 96 03/16/18 08:37 - Labs Result Diagrams: 03/15/18 21:27 03/15/18 21:27 Labs: Laboratory Results - last 24 hr 03/15/18 03/15/18 03/15/18 21:27 21:27 21:27 WBC 7.7 RBC 5.86 Hgb 16.5 D Hct 51.0 MCV 86.9 D MCH 28.1 MCHC 32.4 L RDW 18.1 H Plt Count 212 MPV 10.1 Neut % (Auto) 67.0 Lymph % (Auto) 13.5 L Nye % (Auto) 15.1 H Eos % (Auto) 3.8 Baso % (Auto) 0.6 Neut # (Auto) 5.2 Lymph # (Auto) 1.0 Nye # (Auto) 1.2 H Eos # (Auto) 0.3 Baso # (Auto) 0.0 PT 11.2 INR 1.0 APTT 37 H Sodium 138 Potassium 4.1 Chloride 90 L Carbon Dioxide 31 H Anion Gap 20 BUN 24 H Creatinine 4.5 H Est GFR ( Amer) 16 Est GFR (Non-Af Amer) 13 POC Glucose (mg/dL) Random Glucose 249 H D Calcium 10.0 Total Bilirubin 0.5 AST 31 ALT 19 L D Alkaline Phosphatase 239 H D Total Creatine Kinase 69 CK-MB (Mass) 1.34 Troponin I 0.1200 NT-Pro-B Natriuret Pep 34279 H Total Protein 8.7 H Albumin 5.1 H D Globulin 3.6 Albumin/Globulin Ratio 1.4 Amylase Lipase 03/16/18 03/16/18 03/16/18 06:21 10:49 11:48 WBC RBC Hgb Hct MCV MCH MCHC RDW Plt Count MPV Neut % (Auto) Lymph % (Auto) Nye % (Auto) Eos % (Auto) Baso % (Auto) Neut # (Auto) Lymph # (Auto) Nye # (Auto) Eos # (Auto) Baso # (Auto) PT INR APTT Sodium Potassium Chloride Carbon Dioxide Anion Gap BUN Creatinine Est GFR ( Amer) Est GFR (Non-Af Amer) POC Glucose (mg/dL) 122 H 144 H Random Glucose Calcium Total Bilirubin AST ALT Alkaline Phosphatase Total Creatine Kinase CK-MB (Mass) Troponin I 0.1190 NT-Pro-B Natriuret Pep Total Protein Albumin Globulin Albumin/Globulin Ratio Amylase 184 H Lipase 184
[2018-03-16] MEDS: Nitroglycerin 2% Ointment Foilpak UD TOP SCH (15:48)
[2018-03-16] MEDS ORDERED: Sodium Chloride 0.9% 250 ML IV ONE (15:59)
--- NOTE | 2018-03-16 16:01 | PCM.RRT ---
[employer] Nurses Assessment - Situation Date: 03/16/18 I.Reason for [employer] - A) Acute Change in Patient: (Select all that apply): Acute change in SBP below (70/39) - Neurological Status (Select all that apply): Alert, Responsive, Oriented, Verbal, Follows Commands, Lethargic - Respiratory Oxygen Delivery Method: Nasal Cannula @L/min (4) - Constitutional Appears: Chronically Ill, Other (lethargic) - Head Head Exam: ATRAUMATIC, NORMOCEPHALIC - Eyes Eye Exam: Normal appearance - Respiratory Exam Respiratory Exam: Clear to Ausculation Bilateral, NORMAL BREATHING PATTERN. absent: Rales, Rhonchi, Wheezes, Respiratory Distress - Cardiovascular Exam Cardiovascular Exam: Tachycardia - GI/Abdominal Exam GI & Abdominal Exam: Soft. absent: Guarding, Rigid, Tenderness - Neurological Exam Neurological Exam: Awake Additional exam: very lethargic - Extremities Exam Extremities Exam: absent: Pedal Edema Plan - Assessment of Findings&Treatment Plan Upon walking into the room, Resident Filipe was informed that the patient had a blood pressure of 70/39. He was just given sublingual nitro and had nitro paste placed on his chest at the same time for a complaint of chest pain. His systolic blood pressure prior to both nitros being given was >120 mmHg. Nitro paste was quickly removed off of the patient's chest. He was placed in trendelenburg position and given a 250mL bolus of NS. Patient stated that he started to feel better during the bolus and his blood pressure slowly started to return to normal. Patient's blood pressure reached 104/58 and was back to his baseline upon completion of the NS bolus. Patient was sat back up and [employer] was ended. Case discussed with Dr. Neda Munguia Filipe PGY2
[2018-03-17] MEDS: Nitroglycerin 2% Ointment Foilpak UD TOP SCH ×5 (01:15→22:00)
--- NOTE | 2018-03-17 02:04 | HP ---
REASON FOR ADMISSION: Chest pain. HISTORY OF PRESENT ILLNESS: The patient is a 67-year-old male who has a history of end-stage renal disease, on hemodialysis for the past five to six years, dialysis schedule on Sunday, Sunday and Sunday. The patient has a history of coronary artery bypass surgery. According to him, he underwent quadruple bypass surgery earlier last year at [facility]. The patient also has a history of recent inferior wall myocardial infarction during his last admission in 10/2017 and emergency cardiac catheterization at that time that revealed non-harvested KULKARNI, occluded all vein grafts with severe [place] vessel disease with mild left ventricular systolic dysfunction, and aggressive medical management was recommended at that time. The patient presented with chest pain substernal area as well as epigastric area. The patient did experience nausea and mild vomiting. PAST MEDICAL HISTORY: The patient has a history of bleeding peptic ulcer disease and required surgery some five years ago. History of quadruple bypass surgery earlier last year at [facility]; history of end-stage renal disease, on hemodialysis for the past five to six years; history of cholecystectomy; and history of surgery for bleeding peptic ulcer disease some four years ago. SOCIAL HISTORY: Nonsmoker. MEDICATIONS: Carafate 1 g t.i.d., Crestor 5 mg once a day, subcutaneous heparin 5000 units every 8 hours, Lopressor 25 mg twice a day, Pepcid 20 mg p.o. once a day, Zofran 4 mg intravenously every 8 hours p.r.n. The patient was on aspirin and Plavix, which were discontinued because of the patient's severe abdominal pain today. PHYSICAL EXAMINATION: GENERAL: The patient is an elderly male who does not appear to be in acute distress. VITAL SIGNS: Blood pressure 136/76, heart 91, temperature 97.4, respirations 20. HEENT: Normocephalic. NECK: No JVD. CHEST: Clear. HEART: S1 and S2 are regular. ABDOMEN: Mild epigastric tenderness. EXTREMITIES: No edema. LABORATORY DATA: Today's SMA-7: Sodium 138, potassium 4.1, chloride 90, CO2 of 31, glucose 149, BUN 24, creatinine 4.5. Two sets of troponins were 0.12 and 0.11. ProBNP is 11,100. INR is 1 and PTT is 37. Hemoglobin and hematocrit 16.5 and 51, white count and platelet count are within normal limits. EKG revealed sinus tachycardia with a rate of 110, biatrial enlargement, right bundle-branch block, old inferior wall infarct. On cardiac catheterization that I performed in 07/2017, at that time the patient did have a coronary artery bypass surgery. The patient underwent the bypass earlier last year. The findings at that time revealed 20% to 30% distal narrowing of the left main disease, patent proximal LAD stent, total occlusion of the RCA, non-harvested KULKARNI graft with patent saphenous vein graft to the right coronary artery which was found to be totally occluded in 10/2017 when the patient underwent emergency cardiac catheterization by Dr. Ferrell. ASSESSMENT: 1. Chest pain, rule out myocardial infarction. 2. History of bleeding peptic ulcer disease, status post surgery. 3. End-stage renal disease, on hemodialysis. 4. Coronary artery disease with totally occluded vein graft and non-harvested left internal mammary artery graft to severe [place] vessel disease. RECOMMENDATIONS: Continue current Carafate 1 g t.i.d., Crestor at 5 mg once a day, subcutaneous heparin 5000 units every 8 hours, Lopressor 25 mg twice a day. Start Imdur 60 mg once a day. Resume aspirin 81 mg once a day. GI consult was requested from Dr. Urrutia. Continue p.rjia Addison in the meantime. Christian Hebert MD
[2018-03-17] MEDS: Multivitamin Vitamin B Complex (Nephro-Vite) Tab PO SCH (07:41)
[2018-03-17 08:25] LABS: CALCIUM 9.6 mg/dl (8.6-10.4)
[2018-03-17 08:26] LABS: TROPONIN I 0.341 ng/mL (0.00-0.120)
[2018-03-17] MEDS: Albuterol HFA 90 mcg/actuation (8 g) IH SCH ×2 (09:15→13:35)
[2018-03-17] MEDS: Calcium Gluconate 4.65 MEQ in Dextrose 5% In Water 100 ML IV SCH ×2 (09:26→10:20)
[2018-03-17] MEDS: Belladonna-Phenobarbital PO SCH ×2 (10:21→17:44)
[2018-03-17 10:27] LABS: ALB/GLOB RATIO 1.4 (1.0-2.1); ALBUMIN 4.7 g/dL (3.5-5.0); CALCIUM 9.5 mg/dl (8.6-10.4)
[2018-03-17 10:29] LABS: BASO % 0.3 % (0.0-2.0); EOS % 0.2 % (0.0-4.0); HEMOGLOBIN 16.8 g/dL (12.0-18.0); LYMPH # 0.5 K/uL (1.0-4.3); LYMPH % 5.4 % (20.0-40.0); MEAN CELL VOLUME 88.1 fL (80.0-94.0); MEAN CORPUSCULAR HEMOGLOBIN 29.3 pg (27.0-31.0); MEAN CORPUSCULAR HGB CONC 33.3 g/dL (33.0-37.0); MEAN PLATELET VOLUME 10.9 fL (7.2-11.7); MONO # 1.3 K/uL (0.0-0.8); MONO % 13.6 % (0.0-10.0); NEUT # 7.5 K/uL (1.8-7.0); NEUT % 80.5 % (50.0-75.0); PLATELET COUNT 176 K/uL (130-400); RBC 5.72 Mil/uL (4.40-5.90); RED CELL DISTRIBUTION WIDTH 17.9 % (11.5-14.5); WHITE BLOOD COUNT 9.3 K/uL (4.8-10.8)
--- NOTE | 2018-03-17 10:31 | PN ---
DATE: 03/17/2018 LOCATION: 671, bed A SUBJECTIVE: This is a 67-year-old male, seen initially for GI consultation on 03/16/2018 as requested by the admitting MD, re-examined again earlier today, was status post rapid response done yesterday due to an episode of hypotension. Nitroglycerin given sublingual with nitroglycerin paste to his anterior chest wall and subsequently, his blood pressure is improving this morning and no reported active bleeding. No actual chest pain, palpitation, or significant shortness of breath this morning. The patient apparently and recently had cardiac catheterization in October 2017. Report is seen as per the chart. Today's lab result show blood glucose level of 185. Rest of the lab results is still pending. The patient reported to have increased alkaline phosphatase 149, increased amylase to 184, but normal lipase level with increased BUN and creatinine, but normal CBC initially. PHYSICAL EXAMINATION: GENERAL: A 67-year-old male, appears to be awake, alert, oriented. VITAL SIGNS: Afebrile with pulse of 92, respiratory rate 20 to 22, blood pressure 124/78. HEENT: Showed dry oral mucoid membrane. Nonicteric sclerae. LUNGS: Few scattered crepitation. Decreased air entry at bases. HEART: Positive S1 and S2. ABDOMEN: Soft with mild generalized tenderness. No mass or organomegaly. No rebound tenderness or guarding. EXTREMITIES: Without significant clubbing, cyanosis or edema. NEUROLOGIC: No reported new neurological deficits, sensory or motor. RECTAL: Deferred. IMPRESSION: 1. Chest pain, improving gradually, rule out chest pain secondary to cardiac versus noncardiac etiology, to rule out a new episode of myocardial infarction. 2. Reported history of bleeding peptic ulcer disease, treated surgically. 3. Known history of hypertension, coronary artery disease. 4. Poorly controlled diabetes mellitus, hyperlipidemia. 5. End-stage renal disease, by history. 6. Status post cholecystectomy. 7. Status post coronary artery bypass graft by history. SUGGESTION: 1. Agree with your plan. 2. May add Carafate 1 g one tablet p.o. only daily. 3. tab one twice a day. 4. Follow up cardiac enzymes with abdominal ultrasound. 5. Guaiac all the stool every day x3. 6. Cancer markers. We will discuss further treatment with Dr. Hebert regarding possible upper endoscopy prior to any aggressive cardiac procedures or starting on anticoagulation due to the patient's reported history of bleeding gastric ulcer. We will follow up closely with you. Amada Sanders MD
[2018-03-17 11:10] LABS: BANDS 17 % (0-2); LYMPHOCYTE 8 % (20-40); MONOCYTE 13 % (0-10); NEUTROPHIL 62 % (50-75); TOTAL CELLS COUNTED 100
[2018-03-17 11:11] LABS: PLATELET ESTIMATE NORMAL (NORMAL)
[2018-03-17 11:12] LABS: ANISOCYTOSIS SLIGHT
[2018-03-17 11:16] LABS: GIANT PLATELETS PRESENT; LARGE PLATELETS PRESENT
[2018-03-17] MEDS ORDERED: Influenza Vaccine 60 MCG/0.5 ML SYR (3 yr & up) IM ONE (12:00)
--- NOTE | 2018-03-17 12:44 | CP.PCM.PN ---
Subjective - Date & Time of Evaluation Date of Evaluation: 03/17/18 Time of Evaluation: 12:43 - Subjective Subjective: Nephrology Consultation Note: Assessment: stable Chest pain Epigastric pain Diabetic chronic Kidney Disease (E11.22) Hypertensive Chronic Kidney Disease (I12.0) End stage renal disease (N18.6) dependence on hemodialysis (Z99.2) (MWF) via AVG Anemia (D64.9), Hyperphosphatemia (E83.39), Secondary Hyperparathyroidism (E21.1), HTN (I12.0) CAD s/p CABG, active smoker hx of peptic ulcer disease hyperkalemia Plan: will need urgent HD today for hyperkalemia - notified nursing pt consented continue with Nephrovite 1 tab/day hold off on HARINDER continue home bp meds continue with renvela Glycemic control Further work up/management as per primary team S: seen and examined no n/v. ROS: a full detailed ros is negative except as in my hpi Physical Examination: General Appearance: Comfortable, in no acute respiratory distress, co-operative Vitals reviewed and noted as below Head; Atraumatic, normocephalic ENT: no ulcers no thrush. Tongue is midline. Oropharynx: no rash or ulcers. EYES: Pupils are equal, round and reactive to light accommodation. Eye muscles and extraocular movement intact. Sclera is anicteric. Neck; supple no lymphadenopathy, no thyromegaly or bruit Lungs: Normal respiratory rate/effort. Breath sounds bilateral equal and clear Heart: normal rate. s1s2 normal. No rub or gallop. has CABG scar Extremities: no edema. No varicose veins Neurological: Patient is awake alert follows commands, no focal deficit Skin: Warm and dry. Normal turgor. No rash. Palpitation: Normal elasticity for age Abdomen: Abdomen is soft. Bowel sounds +. There is epigastric abdominal tenderness, no guarding/rigidity or organomegaly. prior surgical scars+ Psych: limited insight. normal affect/mood MSK: no joint tenderness or swelling. Digits and nails normal, no deformity : kidney or bladder not palpable Access: AVG Labs/imaging reviewed. Past medical history, past surgical history, family history, social history, allergy reviewed and noted as below Family Hx: no hx of CKD. Non contributory Objective - Vital Signs/Intake and Output Vital Signs (last 24 hours): Temp Pulse Resp BP Pulse Ox 98.6 F 77 18 134/92 H 100 03/17/18 10:45 03/17/18 12:14 03/17/18 10:45 03/17/18 12:14 03/17/18 10:45 - Medications Medications: Current Medications Albuterol (Ventolin Hfa 90 Mcg/Actuation (8 G)) 2 puff IH QID [facility] Last Admin: 03/17/18 09:15 Dose: 2 puff Aspirin (Aspirin Chewable) 81 mg PO DAILY [facility] Last Admin: 03/17/18 10:20 Dose: Not Given Belladonna/Phenobarbital () 1 tab PO BID [facility] Last Admin: 03/17/18 10:21 Dose: Not Given Famotidine (Pepcid) 20 mg PO DAILY [facility] Last Admin: 03/17/18 10:21 Dose: Not Given Heparin Sodium (Porcine) (Heparin) 5,000 units SC Q8 [facility] Last Admin: 03/17/18 05:54 Dose: 5,000 units Vancomycin HCl 500 mg/ Sodium (Chloride) 100 mls @ 100 mls/hr IVPB ONCE ONE; Protocol Stop: 03/17/18 13:33 Cefepime HCl 0.5 gm/ Dextrose 50 mls @ 100 mls/hr IVPB Q24H [facility]; Protocol Metoprolol Tartrate (Lopressor) 25 mg PO BID [facility] Last Admin: 03/17/18 10:21 Dose: Not Given Morphine Sulfate (Morphine) 2 mg IVP Q6 PRN PRN Reason: Pain, severe (8-10) Last Admin: 03/17/18 07:41 Dose: 2 mg Nitroglycerin (Nitro-Bid 2% Oint) 1 ea TOP Q6H [facility] Last Admin: 03/17/18 10:21 Dose: Not Given Ondansetron HCl (Zofran Inj) 4 mg IVP Q8 PRN PRN Reason: Nausea/Vomiting Last Admin: 03/16/18 09:13 Dose: 4 mg Pneumococcal Polyvalent Vaccine (Pneumovax 23 Vaccine) 0.5 ml IM .ONCE ONE Stop: 03/17/18 14:01 Pregabalin (Lyrica) 25 mg PO DAILY [facility] Last Admin: 03/17/18 10:21 Dose: Not Given Rosuvastatin Calcium (Crestor) 5 mg PO HS [facility] Last Admin: 03/16/18 21:54 Dose: 5 mg Sevelamer Carbonate (Renvela) 800 mg PO TID [facility] Last Admin: 03/17/18 10:21 Dose: Not Given Sucralfate (Carafate Tab) 1 gm PO TID [facility] Last Admin: 03/17/18 10:20 Dose: Not Given Vitamin B Complex/Vit C/Folic Acid (Nephro-Benjamin) 1 tab PO 0800 [facility] Last Admin: 03/17/18 07:41 Dose: 1 tab - Labs Labs: 03/17/18 10:08 03/17/18 07:42 PT 11.2 SECONDS (9.7-12.2) 03/15/18 21:27 INR 1.0 03/15/18 21:27 APTT 37 SECONDS (21-34) H 03/15/18 21:27
[2018-03-17] MEDS ORDERED: Pneumococcal 23-Valent Vaccine IM ONE (14:00)
--- NOTE | 2018-03-17 18:26 | PN ---
DATE: 03/17/2018 SUBJECTIVE: I was looking values this morning; potassium was 7, troponin . The patient received calcium gluconate intravenously by the representative personal service, and emergency hemodialysis was re-initiated and the patient was snf into his hemodialysis. When I saw him, he was feeling chilly. He denies any sore throat or productive cough. Abdominal pain has improved. PHYSICAL EXAMINATION VITAL SIGNS: Blood pressure 134/92, heart rate 77, temperature 98.6, respirations 16. HEENT: Normocephalic. CHEST: Clear. HEART: S1 and S2 regular. ABDOMEN: Soft. EXTREMITIES: No edema. LABORATORY DATA: Today's hemoglobin and hematocrit are 16.8 and 50.4, white count 9.3, platelet count 176,000, bands are 17%. D-dimer was within normal limit yesterday. SMA-7 today: Sodium 136, potassium 6.8, chloride 90, CO2 of 25, glucose 167, BUN 70, creatinine 8.4. ASSESSMENT: 1. Chest pain with borderline troponin elevation. The patient is noted to have significant coronary artery disease with total occlusion of all the vein grafts and severe [place] vessel disease and is not considered a candidate for intervention. The case was discussed with Dr Ferrell, the racing secretary and handicapper, who will evaluate the patient today. 2. Abdominal pain. 3. Rigors and bandemia on the blood test. 4. End-stage renal disease, on hemodialysis. 5. Hyperkalemia. 6. Rule out underlying sepsis. RECOMMENDATIONS: Infectious disease consult has been requested and the patient will be started on intravenous vancomycin and intravenous Cefepime after obtaining blood cultures. The patient will also be scheduled for a CT scan of the abdomen and pelvis without contrast. In the meantime, the patient will be maintained on subcutaneous heparin at 5000 units every 8 hours and Crestor 5 mg once a day. Christian Hebert MD
--- NOTE | 2018-03-17 21:04 | CP.PCM.CON ---
History of Present Illness - History of Present Illness History of Present Illness: INFECTIOUS DISEASE CONSULT; REASON FOR CONSULT SEPSIS/BANDEMIA/HYPOTENSION HPI: Pt is a 67 M with hx of ESRD on hemodialysis (MWF) via AVG, often non complaint, anemia, hyperphosphatemia, secondary hyperparathyroidism, Diabetes Mellitus, hypertension, CAD s/p CABG, active smoker, hx of partial gastrectomy, SBO and peptic ulcer bleed presented with complaints of chest pain, and epigastric pain w/ episode of emesis - nb/nb. He was admitted for further management. CP currently improved - felt like stabbing sensation yesterday. +VE TROPINONS PATIENT ALSO HAD ELEVATED AMYLASE AND LIPASE. pATIENT FOR HEMODIALYSIS TODAY BECAUSE OF HYPERKALEMIA WITH POTASSIUM OF 7.0 AND CREATININE OF 8.4. ELEVATED TRANSAMINASES WITH ELEVATED ALKALINE PHOS.PATIENT PRESENTLY DENIES FURTHER VOMITING OR NAUSEA. PMH: Anemia, CAD, CHF, Diabetes, Gastrointestinal Ulcer, HTN, Hypercholesterolemia, Hyperlipidemia, End Stage Renal Disease, Chronic Kidney Disease Denies: Kidney Stones Surgical History: CABG, Cholecystectomy - [facility] Procedures (10/29/17) EXCISION OF DESCENDING COLON, ENDO, DIAGN (02/26/17) EXCISION OF STOMACH, ENDO, DIAGN (02/26/17) FLUOROSCOPY OF LEFT HEART USING LOW OSMOLAR CONTRAST (07/29/16) FLUOROSCOPY OF LEFT HEART USING OTHER CONTRAST (10/29/17) FLUOROSCOPY OF MULT COR A GRAFT USING OTH CONTRAST (10/29/17) FLUOROSCOPY OF MULT COR ART USING L OSM CONTRAST (07/29/16) FLUOROSCOPY OF MULTIPLE CORONARY ARTERIES USING OTH CONTRAST (10/29/17) FLUOROSCOPY OF SING COR A GRAFT USING L OSM CONTRAST (07/29/16) HEMODIALYSIS (01/02/13) INSPECTION OF UPPER INTESTINAL TRACT, ENDO (10/09/17) MEASURE CARDIAC SAMPL & PRESSURE, BILATERAL, PERC (08/27/15) MEASURE OF CARDIAC SAMPL & PRESSURE, L HEART, PERC APPROACH (10/29/17) PACKED CELL TRANSFUSION (01/02/13) PERFORMANCE OF URINARY FILTRATION, MULTIPLE (08/27/15) PERFORMANCE OF URINARY FILTRATION, SINGLE (07/29/16) PLAIN RADIOGRAPHY OF MULT COR A GRAFT USING OTH CONTRAST (08/27/15) PLAIN RADIOGRAPHY OF MULT COR ART USING OTH CONTRAST (08/27/15) PLAIN RADIOGRAPHY OF RIGHT AND LEFT HEART USING OTH CONTRAST (08/27/15) TRANSFUSE NONAUT RED BLOOD CELLS IN PERIPH VEIN, PERC (02/26/17) VENOUS CATHETERIZATION FOR RENAL DIALYSIS (01/02/13) Family History: States: Unknown Family Hx - Social History Hx Tobacco Use: Yes Hx Alcohol Use: No Hx Substance Use: No - Immunization History Hx Tetanus Toxoid Vaccination: No Hx Influenza Vaccination: No Hx Pneumococcal Vaccination: No ALLERGY; NKA. MEDS; REVIEWED. Review of Systems - Review of Systems All systems: reviewed and no additional remarkable complaints except ( PER HPI.) Past Patient History - Past Medical History & Family History Past Medical History?: Yes - Past Social History Smoking Status: Former Smoker - CARDIAC Hx Cardiac Disorders: Yes Hx Congestive Heart Failure: Yes Hx Hypercholesterolemia: Yes Hx Hypertension: Yes - PULMONARY Hx Respiratory Disorders: No - NEUROLOGICAL Hx Neurological Disorder: No - HEENT Hx HEENT Problems: No - RENAL Hx Chronic Kidney Disease: Yes Date of Last Dialysis Treatment: 03/15/18 Hx Kidney Stones: No - ENDOCRINE/METABOLIC Hx Endocrine Disorders: Yes Hx Diabetes Mellitus Type 2: Yes - HEMATOLOGICAL/ONCOLOGICAL Hx Blood Disorders: Yes Hx Anemia: Yes - INTEGUMENTARY Hx Dermatological Problems: No - MUSCULOSKELETAL/RHEUMATOLOGICAL Hx Musculoskeletal Disorders: No Hx Falls: No - GASTROINTESTINAL Hx Gastrointestinal Disorders: Yes - GENITOURINARY/GYNECOLOGICAL Hx Genitourinary Disorders: No - PSYCHIATRIC Hx Psychophysiologic Disorder: No Hx Substance Use: No - SURGICAL HISTORY Hx Surgeries: Yes Hx Cholecystectomy: Yes Hx Coronary Artery Bypass Graft: Yes - ANESTHESIA Hx Anesthesia: Yes Hx Anesthesia Reactions: No Hx Malignant Hyperthermia: No Meds Allergies/Adverse Reactions: Allergies Allergy/AdvReac Type Severity Reaction Status Date / Time No Known Allergies Allergy Verified 03/15/18 21:11 - Medications Medications: Current Medications Albuterol (Ventolin Hfa 90 Mcg/Actuation (8 G)) 2 puff IH QID [facility] Last Admin: 03/17/18 13:35 Dose: Not Given Aspirin (Aspirin Chewable) 81 mg PO DAILY [facility] Last Admin: 03/17/18 14:32 Dose: 81 mg Belladonna/Phenobarbital () 1 tab PO BID [facility] Last Admin: 03/17/18 17:44 Dose: 1 tab Famotidine (Pepcid) 20 mg PO DAILY [facility] Last Admin: 03/17/18 10:21 Dose: Not Given Heparin Sodium (Porcine) (Heparin) 5,000 units SC Q8 [facility] Last Admin: 03/17/18 14:32 Dose: 5,000 units Cefepime HCl 0.5 gm/ Dextrose 50 mls @ 100 mls/hr IVPB Q24H [facility]; Protocol Last Admin: 03/17/18 17:00 Dose: 100 mls/hr Metoprolol Tartrate (Lopressor) 25 mg PO BID [facility] Last Admin: 03/17/18 14:32 Dose: 25 mg Morphine Sulfate (Morphine) 2 mg IVP Q6 PRN PRN Reason: Pain, severe (8-10) Last Admin: 03/17/18 13:23 Dose: 2 mg Nitroglycerin (Nitro-Bid 2% Oint) 1 ea TOP Q6H [facility] Last Admin: 03/17/18 10:21 Dose: Not Given Ondansetron HCl (Zofran Inj) 4 mg IVP Q8 PRN PRN Reason: Nausea/Vomiting Last Admin: 03/16/18 09:13 Dose: 4 mg Pregabalin (Lyrica) 25 mg PO DAILY [facility] Last Admin: 03/17/18 10:21 Dose: Not Given Rosuvastatin Calcium (Crestor) 5 mg PO HS [facility] Last Admin: 03/16/18 21:54 Dose: 5 mg Sevelamer Carbonate (Renvela) 800 mg PO TID [facility] Last Admin: 03/17/18 14:45 Dose: Not Given Sucralfate (Carafate Tab) 1 gm PO TID [facility] Last Admin: 03/17/18 17:35 Dose: 1 gm Vitamin B Complex/Vit C/Folic Acid (Nephro-Benjamin) 1 tab PO 0800 [facility] Last Admin: 03/17/18 07:41 Dose: 1 tab Physical Exam - Constitutional Appears: No Acute Distress, Cachectic, Chronically Ill - Head Exam Head Exam: NORMAL INSPECTION - Eye Exam Eye Exam: EOMI, PERRL. absent: Scleral icterus - ENT Exam ENT Exam: Mucous Membranes Moist, Normal Oropharynx - Neck Exam Neck exam: Positive for: Normal Inspection - Respiratory Exam Respiratory Exam: Clear to Auscultation Bilateral, NORMAL BREATHING PATTERN - Cardiovascular Exam Cardiovascular Exam: REGULAR RHYTHM, +S1, +S2 - GI/Abdominal Exam GI & Abdominal Exam: Normal Bowel Sounds, Soft. absent: Tenderness - Extremities Exam Extremities exam: Positive for: normal capillary refill, pedal pulses present. Negative for: calf tenderness, pedal edema - Neurological Exam Neurological exam: Alert, CN II-XII Intact, Oriented x3 - Psychiatric Exam Psychiatric exam: Normal Mood - Skin Skin Exam: Normal Color, Warm Results - Vital Signs Recent Vital Signs: Last Vital Signs Temp 98.0 F 03/17/18 14:51 Pulse 126 H 03/17/18 15:01 Resp 20 03/17/18 15:01 BP 118/70 03/17/18 15:01 Pulse Ox 95 03/17/18 15:01 - Labs Result Diagrams: 03/18/18 00:11 03/17/18 07:42 Labs: Laboratory Results - last 24 hr 03/16/18 03/17/18 03/17/18 21:21 06:29 07:42 WBC RBC Hgb Hct MCV MCH MCHC RDW Plt Count MPV Neut % (Auto) Lymph % (Auto) [place] % (Auto) Eos % (Auto) Baso % (Auto) Neut # (Auto) Lymph # (Auto) [place] # (Auto) Eos # (Auto) Baso # (Auto) Neutrophils % (Manual) Band Neutrophils % Lymphocytes % (Manual) Monocytes % (Manual) Platelet Estimate Large Platelets Giant Platelets Anisocytosis (manual) Sodium Potassium Chloride Carbon Dioxide Anion Gap BUN Creatinine Est GFR ( Amer) Est GFR (Non-Af Amer) POC Glucose (mg/dL) 99 185 H Random Glucose Hemoglobin A1c 6.0 Calcium Total Bilirubin AST ALT Alkaline Phosphatase Troponin I Total Protein Albumin Globulin Albumin/Globulin Ratio Amylase Carcinoembryonic Ag 03/17/18 03/17/18 03/17/18 07:42 07:42 10:08 WBC 9.3 RBC 5.72 Hgb 16.8 Hct 50.4 MCV 88.1 MCH 29.3 MCHC 33.3 RDW 17.9 H Plt Count 176 MPV 10.9 Neut % (Auto) 80.5 H Lymph % (Auto) 5.4 L [place] % (Auto) 13.6 H Eos % (Auto) 0.2 Baso % (Auto) 0.3 Neut # (Auto) 7.5 H Lymph # (Auto) 0.5 L [place] # (Auto) 1.3 H Eos # (Auto) 0.0 Baso # (Auto) 0.0 Neutrophils % (Manual) 62 Band Neutrophils % 17 H* Lymphocytes % (Manual) 8 L Monocytes % (Manual) 13 H Platelet Estimate Normal Large Platelets Present Giant Platelets Present Anisocytosis (manual) Slight Sodium 136 133 Potassium 7.0 H* D 6.8 H* Chloride 90 L 90 L Carbon Dioxide 26 25 Anion Gap 27 H 25 H BUN 71 H 70 H Creatinine 8.1 H* D 8.4 H* Est GFR ( Amer) 8 8 Est GFR (Non-Af Amer) 7 6 POC Glucose (mg/dL) Random Glucose 165 H D 167 H Hemoglobin A1c Calcium 9.6 9.5 Total Bilirubin 0.6 AST 85 H D ALT 66 Alkaline Phosphatase 259 H Troponin I 0.3410 H* Total Protein 8.0 Albumin 4.7 Globulin 3.3 Albumin/Globulin Ratio 1.4 Amylase 167 H Carcinoembryonic Ag 7.9 H 03/17/18 03/17/18 13:30 14:08 WBC RBC Hgb Hct MCV MCH MCHC RDW Plt Count MPV Neut % (Auto) Lymph % (Auto) [place] % (Auto) Eos % (Auto) Baso % (Auto) Neut # (Auto) Lymph # (Auto) [place] # (Auto) Eos # (Auto) Baso # (Auto) Neutrophils % (Manual) Band Neutrophils % Lymphocytes % (Manual) Monocytes % (Manual) Platelet Estimate Large Platelets Giant Platelets Anisocytosis (manual) Sodium Potassium Chloride Carbon Dioxide Anion Gap BUN Creatinine Est GFR ( Amer) Est GFR (Non-Af Amer) POC Glucose (mg/dL) 156 H Random Glucose Hemoglobin A1c Calcium Total Bilirubin AST ALT Alkaline Phosphatase Troponin I 0.5630 H* Total Protein Albumin Globulin Albumin/Globulin Ratio Amylase Carcinoembryonic Ag - Imaging and Cardiology Chest x-ray Status: Report reviewed by me (active disease.) Assessment & Plan (1) Sepsis Status: Acute (2) Chest pain Status: Acute (3) Abdominal pain Status: Acute (4) ESRD (end stage renal disease) on dialysis Assessment and Plan: ON HD MWF, WENT ON EMERGENCY HD TODAY PER RENAL FOR HYPERKALEMIA. Status: Acute (5) History of peptic ulcer disease Status: Chronic (6) Diabetes Status: Acute (7) S/P CABG (coronary artery bypass graft) Status: Acute - Assessment and Plan (Free Text) Plan: PANCULTURE. UA/URINE CULTURE IF PT VOIDS. CT ABD/PELVIS WITHOUT PO OR IV CONTRAST R/O PANCREATITIS/VS COLLECTION. HEPATITIS SCREEN A,B AND C AB. START IV VANCOMYCIN 500MG IVPB POST HD TODAY03/17/18. ADD IV CEFEPIME 500MG IVPB QD DAILY 03/17/18. GI ON BOARD. CARDIAC W/U PER CARDIOLOGY. WILL F/U WITH YOU WHILE IN HOSPITAL.
[2018-03-18 00:16] LABS: HEMOGLOBIN 16.6 g/dL (12.0-18.0); MEAN CELL VOLUME 87.3 fL (80.0-94.0); MEAN CORPUSCULAR HEMOGLOBIN 29.2 pg (27.0-31.0); MEAN CORPUSCULAR HGB CONC 33.5 g/dL (33.0-37.0); MEAN PLATELET VOLUME 10.5 fL (7.2-11.7); RBC 5.69 Mil/uL (4.40-5.90); RED CELL DISTRIBUTION WIDTH 17.9 % (11.5-14.5); WHITE BLOOD COUNT 8.8 K/uL (4.8-10.8)
[2018-03-18] MEDS ORDERED: Dextrose 50% SYRINGE Inj (50 ml) ONE (03:05)
--- NOTE | 2018-03-18 06:53 | CON ---
DATE: 03/16/[address] Sanders to Dr. Christian Hebert. I was called for GI consultation by the admitting medical team. The patient is seen and fully examined on 03/16/[address] Hebert. The entire chart is reviewed including but not limited to the most recent lab and radiology study results, current and the previous medication list, current and the previous medical events, allergy to medication list as well as all the available current and the previous medical record. Case discussed with the staff at length at the time of my GI consultation on 03/16/2018. This 67-year-old male was admitted to the hospital through the emergency room with a main complaint of chest pain, mainly in the left side of his chest, reported to be constant for 4 to 6 hours prior to his admission, post hemodialysis with dyspepsia and nausea and reported recent loss of appetite with decreased oral intake. No reported actual bleeding, chills, fever, or significant shortness of breath. PAST MEDICAL HISTORY: Including mainly but not limited to, 1. Peptic ulcer disease. 2. Hypertension. 3. Bleeding gastric ulcer before. 4. Hyperlipidemia. 5. Coronary artery disease with status post CABG. 6. Status post cholecystectomy. 7. End-stage renal disease, on hemodialysis. PAST SURGICAL HISTORY: The patient's last colonoscopy as per record done on 02/26/2017 as well as upper endoscopy with cardiac cath before. FAMILY HISTORY: Unknown. SOCIAL HISTORY: Positive for cigarette smoking, but denied recent history of alcohol intake. CURRENT MEDICATIONS: Post admission medication list was reviewed. ALLERGIES TO MEDICATIONS: UNCLEAR. LABORATORY DATA: The most recent lab result showed normal CBC but BUN of 24, creatinine 4.5. Blood glucose level 249 with CO2 content of 31 indicative of respiratory alkalosis. Reported troponin level of 0.12. PHYSICAL EXAMINATION: GENERAL: A 67-year-old male, afebrile with pulse of 102, respiratory rate 18 to 20 with blood pressure 108/60 at the time of my physical examination. HEENT: Showed dry oral mucoid membrane. Nonicteric sclerae. LYMPH NODES: No lymphadenitis or lymphadenopathy. LUNGS: Few scattered mild crepitation. Decreased air entry at bases. HEART: Positive S1 and S2. ABDOMEN: Soft with mild generalized tenderness. No mass or organomegaly. No rebound tenderness or guarding. RECTAL: Deferred due to the patient's cardiac status. EXTREMITIES: Slight lower extremity edematous changes. No clubbing or cyanosis. NEUROLOGIC: No reported new neurological deficits, sensory or motor. No reported new focal deficits. IMPRESSION: 1. Chest pain, cardiac versus noncardiac. 2. Rule out re-exacerbation of peptic ulcer disease, keeping in mind the patient's known history bleeding ulcer before. 3. Multiple past medical history as above. SUGGESTIONS: 1. Agree with your plan. 2. The patient may need endoscopic evaluation of the GI tract before any further aggressive cardiac workup or giving any anticoagulation treatment. 3. Abdominal ultrasound with attention to biliary tree and pancreas. 4. Cancer markers. 5. Serum lipase, amylase level. 6. Guaiac all the stool every day x3. On record, the patient did not remember and does not remember exactly the outcome of previous endoscopic evaluation of upper and lower GI tract, nor remember who did it before or reviewed the record for any further aggressive workup. Case discussed with the admitting medical team at length. Thank you for letting me participate in your patient's case management. MD Tmomy
[2018-03-18] MEDS: Multivitamin Vitamin B Complex (Nephro-Vite) Tab PO SCH (07:40)
--- NOTE | 2018-03-18 08:09 | CARD ---
APPROVED REPORT Date of service: 03/15/2018 EKG Measurement Heart [id number] <Conclusion> Sinus tachycardia Biatrial enlargement Right bundle branch block Inferior infarct, age undetermined Abnormal ECG
[2018-03-18 09:46] LABS: BASO % 0.2 % (0.0-2.0); EOS # 0.1 K/uL (0.0-0.7); EOS % 1.3 % (0.0-4.0); HEMOGLOBIN 16.3 g/dL (12.0-18.0); LYMPH # 0.3 K/uL (1.0-4.3); LYMPH % 3.7 % (20.0-40.0); MEAN CELL VOLUME 87.1 fL (80.0-94.0); MEAN CORPUSCULAR HEMOGLOBIN 29.5 pg (27.0-31.0); MEAN CORPUSCULAR HGB CONC 33.8 g/dL (33.0-37.0); MEAN PLATELET VOLUME 10.6 fL (7.2-11.7); MONO # 1.2 K/uL (0.0-0.8); NEUT # 6.5 K/uL (1.8-7.0); NEUT % 79.8 % (50.0-75.0); PLATELET COUNT 161 K/uL (130-400); RBC 5.51 Mil/uL (4.40-5.90); RED CELL DISTRIBUTION WIDTH 17.8 % (11.5-14.5); WHITE BLOOD COUNT 8.2 K/uL (4.8-10.8)
[2018-03-18] MEDS: Albuterol HFA 90 mcg/actuation (8 g) IH SCH ×3 (10:00→19:36)
[2018-03-18] MEDS: Belladonna-Phenobarbital PO SCH ×2 (10:15→21:40)
[2018-03-18 10:17] LABS: ALB/GLOB RATIO 1.4 (1.0-2.1); ALBUMIN 4.4 g/dL (3.5-5.0); ALT/SGPT 403 U/L (21-72); AST/SGOT 367 U/L (17-59); BILIRUBIN,DIRECT 0.6 mg/dL (0.0-0.4)
[2018-03-18 10:32] LABS: HEPATITIS B SURFACE AG Negative (NEGATIVE)
[2018-03-18 10:38] LABS: HEPATITIS A IGM NEGATIVE (NEGATIVE); HEPATITIS B CORE AB NEGATIVE (NEGATIVE)
[2018-03-18 10:50] LABS: HEPATITIS C ANTIBODY NEGATIVE (NEGATIVE)
[2018-03-18 10:51] LABS: BANDS 31 % (0-2); LYMPHOCYTE 5 % (20-40); MONOCYTE 16 % (0-10); MYELOCYTE 4 % (0-0); NEUTROPHIL 43 % (50-75); PROMYELOCYTE 1 % (0-0); TOTAL CELLS COUNTED 100
[2018-03-18 10:52] LABS: PLATELET ESTIMATE NORMAL (NORMAL)
[2018-03-18 10:53] LABS: ANISOCYTOSIS SLIGHT; LARGE PLATELETS PRESENT; TOXIC GRANULATION PRESENT
[2018-03-18 10:58] LABS: HEPATITIS C ANTIBODY NEGATIVE (NEGATIVE)
--- NOTE | 2018-03-18 13:17 | CP.PCM.PN ---
Subjective - Date & Time of Evaluation Date of Evaluation: 03/18/18 Time of Evaluation: 12:00 - Subjective Subjective: Nephrology Consultation Note: Assessment: stable Chest pain Epigastric pain Diabetic chronic Kidney Disease (E11.22) Hypertensive Chronic Kidney Disease (I12.0) End stage renal disease (N18.6) dependence on hemodialysis (Z99.2) (MWF) via AVG Anemia (D64.9), Hyperphosphatemia (E83.39), Secondary Hyperparathyroidism (E21.1), HTN (I12.0) CAD s/p CABG, active smoker hx of peptic ulcer disease hyperkalemia Plan: seen on HD tolerating tx MWF continue continue with Nephrovite 1 tab/day hold off on HARINDER continue home bp meds continue with renvela Glycemic control Further work up/management as per primary team S: seen on hd still w/ pain Physical Examination: General Appearance: Comfortable, in no acute respiratory distress, co-operative Vitals reviewed and noted as below Head; Atraumatic, normocephalic ENT: no ulcers no thrush. Tongue is midline. Oropharynx: no rash or ulcers. EYES: Pupils are equal, round and reactive to light accommodation. Eye muscles and extraocular movement intact. Sclera is anicteric. Neck; supple no lymphadenopathy, no thyromegaly or bruit Lungs: Normal respiratory rate/effort. Breath sounds bilateral equal and clear Heart: normal rate. s1s2 normal. No rub or gallop. has CABG scar Extremities: no edema. No varicose veins Neurological: Patient is awake alert follows commands, no focal deficit Skin: Warm and dry. Normal turgor. No rash. Palpitation: Normal elasticity for age Abdomen: Abdomen is soft. Bowel sounds +. There is epigastric abdominal tenderness, no guarding/rigidity or organomegaly. prior surgical scars+ Psych: limited insight. normal affect/mood MSK: no joint tenderness or swelling. Digits and nails normal, no deformity : kidney or bladder not palpable Access: AVG Labs/imaging reviewed. Past medical history, past surgical history, family history, social history, allergy reviewed and noted as below Family Hx: no hx of CKD. Non contributory Objective - Vital Signs/Intake and Output Vital Signs (last 24 hours): Temp Pulse Resp BP Pulse Ox 98 F 100 H 19 107/66 98 03/18/18 09:30 03/18/18 09:30 03/18/18 09:30 03/18/18 11:30 03/18/18 09:30 - Medications Medications: Current Medications Albuterol (Ventolin Hfa 90 Mcg/Actuation (8 G)) 2 puff IH QID [facility] Last Admin: 03/17/18 13:35 Dose: Not Given Belladonna/Phenobarbital () 1 tab PO BID [facility] Last Admin: 03/18/18 10:15 Dose: Not Given Famotidine (Pepcid) 20 mg PO DAILY [facility] Last Admin: 03/18/18 10:16 Dose: Not Given Meropenem 500 mg/ Sodium (Chloride) 100 mls @ 100 mls/hr IVPB Q12H [facility]; Protocol Amikacin Sulfate 500 mg/ (Sodium Chloride) 102 mls @ 102 mls/hr IVPB ONCE ONE; Protocol Stop: 03/18/18 17:59 Metoclopramide HCl (Reglan) 5 mg IVP TIDAC [facility] Last Admin: 03/18/18 12:37 Dose: Not Given Morphine Sulfate (Morphine) 2 mg IVP Q6 PRN PRN Reason: Pain, severe (8-10) Last Admin: 03/18/18 05:53 Dose: 2 mg Ondansetron HCl (Zofran Inj) 4 mg IVP Q8 PRN PRN Reason: Nausea/Vomiting Last Admin: 03/17/18 23:43 Dose: 4 mg Pregabalin (Lyrica) 25 mg PO DAILY [facility] Last Admin: 03/18/18 10:15 Dose: Not Given Rosuvastatin Calcium (Crestor) 5 mg PO HS [facility] Last Admin: 03/17/18 22:23 Dose: 5 mg Sevelamer Carbonate (Renvela) 800 mg PO TID [facility] Last Admin: 03/18/18 10:16 Dose: Not Given Vitamin B Complex/Vit C/Folic Acid (Nephro-Benjamin) 1 tab PO 0800 [facility] Last Admin: 03/18/18 07:40 Dose: 1 tab - Labs Labs: 03/18/18 09:40 03/17/18 07:42 PT 11.2 SECONDS (9.7-12.2) 03/15/18 21:27 INR 1.0 03/15/18 21:27 APTT 37 SECONDS (21-34) H 03/15/18 21:27
[2018-03-18 13:40] LABS: CALCIUM 10.8 mg/dl (8.6-10.4)
[2018-03-18] MEDS ORDERED: Naloxone 0.4 mg/ml Inj (Adult) IVP STA (14:19)
[2018-03-18] MEDS ORDERED: Dextrose 50% SYRINGE Inj (50 ml) IV STA ×2 (14:24→16:18)
[2018-03-18] MEDS ORDERED: Albuterol-Ipratrop 3 mg / 0.5 (3 ml) UD INH STA (14:25)
[2018-03-18] MEDS ORDERED: Naloxone 0.4 mg/ml Inj (Adult) IM STA ×2 (14:27→14:38)
--- NOTE | 2018-03-18 14:37 | PCM.RRT ---
COAT JOINER Nurses Assessment - Situation Date: 03/16/18 - IV IV Inserted during COAT JOINER?: No - Respiratory COAT JOINER Delivery Method: Nasal Cannula @L/min (4) - Medication Medications Administered During COAT JOINER: Normal Saline 250mls bolus - Diagnostic Test Ordered EKG: Yes Chest X-Ray: No CT Scan: No CPR started during COAT JOINER?: No - Vital Signs Vital Signs: Rapid Response Vital Sign Blood Pressure 70/39 Pulse Rate 75 Respiratory Rate 16 Oxygen Saturation 83 - Oscar Coma Scale Coma Scale Eye Opening: To verbal stimuli Coma Scale Motor: Obeys Commands Movement Coma Scale Verbal: Oriented Coma Scale Total: 14 - Sepsis Screen Part 1 Sepsis Screen Part 1: Hypotensive - Time COAT JOINER Ended Time COAT JOINER Ended: 16:30 - Vital Signs at end of COAT JOINER Vital Signs at end of COAT JOINER: Rapid Response End Vital Sign Blood Pressure 104/58 Pulse Rate 69 Respiratory Rate 18 Temperature 98.9 F O2 Sat by Pulse Oximetry 97 - Recommendations Notifications: Attending Physician - Respiratory Oxygen Delivery Method: Nasal Cannula @L/min (4) - Constitutional Appears: Other (Lethargic) - Head Head Exam: ATRAUMATIC, NORMOCEPHALIC - Eyes Eye Exam: PERRL - Respiratory Exam Respiratory Exam: Clear to Ausculation Bilateral - Cardiovascular Exam Cardiovascular Exam: REGULAR RHYTHM, +S1, +S2 - GI/Abdominal Exam GI & Abdominal Exam: Soft. absent: Tenderness - Neurological Exam Additional exam: Patient lethargic, not following commands Plan - Assessment of Findings&Treatment Plan COAT JOINER was called at 14:17 for unresponsiveness and hypotension. Per nursing, BP was 88/49. Patient was given Morphine 2mg IM at 13:40 after he returned from dialysis. Patient was placed in trandelenberg. BP improved to 91/66, HR 95. Fingerstick was 62. Narcan 0.4mg IM given. Patient also received sublingual glucose. Patient became more awake and alert. Glucose rechecked and was 50. Another sublingual nitro and glucose were given. Patient also given stat Duoneb treatment. Given another dose of Narcan 0.4mg IM. Patient was placed on Bipap settings: /6 due to labored breathing. Initially, patient's line was infiltrated and IV access was not able to be immediately obtained due to poor vasculature. Dr. Draper, critical care, was consulted and he was able to obtain a line. D50 was given x2 amps. Patient's mental status continued to improve, patient talking and following commands. Bipap was discontinued and patient was placed on non-rebreather mask. Final BP was 136/74, HR 61, SpO2 98% on non-rebreather mask. Patient accepted to ICU and will be transferred to ICU 14B. Plan: Narcan 0.4mg IM x2 Sublingual glucose Accucheck IV access CXR Nebulizer treatment Troponin Ammonia CBC, CMP, Mg, Phos Transfer to ICU
[2018-03-18] MEDS ORDERED: Glucagon Recombinant 1 mg Inj SC STA (14:43)
--- NOTE | 2018-03-18 14:57 | CT ---
Date of service: 03/18/2018 PROCEDURE: CT Abdomen and Pelvis without intravenous contrast HISTORY: r/o mass or collection COMPARISON: 10/29/2017 TECHNIQUE: Without contrast.. Contrast dose: 0 Radiation dose: Total exam DLP = 776.26 mGy-cm. This CT exam was performed using one or more of the following dose reduction techniques: Automated exposure control, adjustment of the mA and/or kV according to patient size, and/or use of iterative reconstruction technique. FINDINGS: LOWER THORAX: Fluid-filled distal thoracic esophagus. Linear scar/atelectasis left lower lobe and lingula. Old calcified granuloma in right lower lobe. No infiltrate/effusion. Cardiomegaly. CABG. LIVER: Unremarkable. No gross lesion or ductal dilatation. GALLBLADDER AND BILE DUCTS: Status post cholecystectomy PANCREAS: Unremarkable. No gross lesion or ductal dilatation. SPLEEN: Multiple punctate calcifications consistent with old granulomatous disease. Several splenules are incidentally noted ADRENALS: Unremarkable. No mass. KIDNEYS AND URETERS: Atrophic kidneys. 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 No hydronephrosis. Vascular calcifications. VASCULATURE: Extensive calcification of the abdominal aorta, likely atherosclerotic. No aneurysm. BOWEL: Multiple dilated small bowel loops. Nonspecific. There are dilated to the ileocecal valve suggesting adynamic ileus rather than mechanical bowel obstruction. The small bowel measures maximally 3.2 cm in diameter. Status post partial gastrectomy and gastrojejunostomy. Hiatal hernia. Fluid-filled distal esophagus may be the result of reflux. The gastroesophageal junction appears grossly patent on this examination. APPENDIX: Unremarkable. Normal appendix. PERITONEUM: Unremarkable. No free fluid. No free air. LYMPH NODES: Unremarkable. No enlarged lymph nodes. BLADDER: Nondistended REPRODUCTIVE: Normal prostate BONES: Medullary gigi in right femur. Bilateral osteoarthritis of the hip with subchondral cyst in left superior acetabulum. OTHER FINDINGS: Suspect ecchymosis over left lower anterior abdominal wall. Correlate clinically. IMPRESSION: Partial gastrectomy with gastrojejunostomy. Hiatal hernia. Fluid distends the visualized distal thoracic esophagus, possibly due to reflux. Fluid-filled stomach noted as well. Dilated small bowel loops to the level of the ileocecal valve suggests possible adynamic ileus. Correlate clinically. Cardiomegaly. CABG. Atrophic kidneys. 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 Old calcified granulomas of the lung and spleen. Ecchymosis over left lower anterior abdominal wall, nonspecific. Minor findings as above.
--- NOTE | 2018-03-18 15:01 | RAD ---
HISTORY: shortness of breath COMPARISON: Chest x-ray performed 03/15/18 TECHNIQUE: Chest, one view. FINDINGS: External wires, leads, and devices obscure evaluation of the underlying parenchyma. LUNGS: Hypoinflation. No focal consolidation. Small calcified granuloma, right midlung zone. Please note that chest x-ray has limited sensitivity for the detection of pulmonary masses. PLEURA: No significant pleural effusion identified. No definite pneumothorax . CARDIOVASCULAR: Median sternotomy wires with evidence of CABG. Cardiomegaly. No significant atherosclerotic calcification present. OSSEOUS STRUCTURES: Degenerative changes. Acromioclavicular arthropathy. VISUALIZED UPPER ABDOMEN: Unremarkable. OTHER FINDINGS: Vascular stent noted in the left axillary region. IMPRESSION: Hypoinflation. No focal consolidation identified. Cardiomegaly.
[2018-03-18] MEDS: Meropenem 500 MG in Sodium Chloride 0.9% 100 ML IVPB SCH (15:21)
--- NOTE | 2018-03-18 15:56 | PN ---
DATE: 03/18/2018 LOCATION: 671, bed A. SUBJECTIVE: This is a 67-year-old male, seen and examined in rounds, with reported episodes of hypotension before and dark brownish fecal material as per colon. On record, nobody contacted me during for this patient at all and the patient was seen yesterday in rounds. Again, nobody contacted my answer service regarding the patient's change of bowel movement color. Most recent lab results showed normal CBC, no drop of hemoglobin and hematocrit with normal platelet count, normal white blood cells. However, it was reported the patient has elevated 211 of blood glucose level with elevated AST, ALT and alkaline phosphatase. Hepatitis profile is still pending. PHYSICAL EXAMINATION: GENERAL: A 67-year-old male, appears to be awake, alert, oriented. VITAL SIGNS: Afebrile with pulse of 94, respiratory rate 20 to 22 with the latest blood pressure of 156/86. HEENT: Showed mildly pale dry oral mucous membrane. Nonicteric sclerae. LUNGS: Few scattered crepitation. Decreased air entry at bases. HEART: Positive S1 and S2. ABDOMEN: Soft with mild generalized tenderness. No mass or organomegaly. No rebound tenderness or guarding. EXTREMITIES: Without significant clubbing, cyanosis or edema. NEUROLOGIC: No reported new neurological deficits, sensory or motor. IMPRESSION: 1. Re-exacerbation of peptic ulcer disease. 2. Reported history of gastrointestinal blood loss before. 3. Abnormal liver function test that could be secondary to medication induced versus right-sided heart failure. 4. Chest pain, cardiac versus noncardiac. 5. Known history of hypertension, coronary artery disease, hyperlipidemia, and diabetes mellitus. 6. End-stage renal disease, on hemodialysis. 7. Status post coronary artery bypass graft, by history. SUGGESTIONS: 1. Continue current management. 2. Endoscopic evaluation of the GI tract, again that to be discussed with Dr. Hebert before any aggressive GI workup at this point. 3. Cancer markers. 4. Guaiac card stools everyday x3. 5. We will follow up closely with you. Amada Sanders MD [facility] # [id number]
[2018-03-18 15:59] LABS: ARTERIAL BLOOD GAS HCO3 3.3 mmol/L (21-28); ARTERIAL BLOOD GAS O2 SAT 97.9 % (95-98); ARTERIAL BLOOD GAS PCO2 26 mm/Hg (35-45); ARTERIAL BLOOD GAS PH 6.87 (7.35-7.45); ARTERIAL BLOOD GAS PO2 380 mm/Hg (80-100); ARTERIAL BLOOD GAS TCO2 5.6 mmol/L (22-28)
[2018-03-18] MEDS ORDERED: Sodium Bicarbonate (8.4%) 50 Meq Syringe ONE (16:03)
[2018-03-18] MEDS ORDERED: DOPamine 400mg/250ml D5W 400 MG/250 ML BAG IV PRN (16:03)
--- NOTE | 2018-03-18 16:16 | US ---
HISTORY: Transaminitis COMPARISON: CT of the abdomen and pelvis without contrast performed 03/18/18 TECHNIQUE: Sonographic evaluation of the abdomen. FINDINGS: LIVER: Measures 13.9 cm in sagittal dimension. Echogenic liver may be seen in setting of hepatic parenchymal disease or fatty infiltration. Nodular hepatic contour. No focal hepatic mass identified. The main portal vein appears patent with normal directional flow. No intrahepatic bile duct dilatation. GALLBLADDER: Cholecystectomy. COMMON BILE DUCT: Measures 1.2 cm. PANCREAS: Not well visualized. RIGHT KIDNEY: Measures 8.7 x 3.6 x 3.8cm. No obstructing calculus or hydronephrosis identified. LEFT KIDNEY: Measures 8.9 x 3.8 x 4.2cm. No obstructing calculus or hydronephrosis identified. 1.3 x 1.3 x 1.4 cm mid to upper pole renal cyst. SPLEEN: Measures approximately 11.4 cm. AORTA: Not well-visualized. IVC: Not well-visualized. OTHER FINDINGS: None. IMPRESSION: 1.3 x 1.3 x 1.4 cm mid to upper pole left renal cyst. Dilated common bile duct in the setting of cholecystectomy. Echogenic liver may be seen in setting of hepatic parenchymal disease or fatty infiltration. Nodular hepatic contour. Correlate clinically for cirrhosis.
--- NOTE | 2018-03-18 16:27 | CP.PCM.CON ---
History of Present Illness - History of Present Illness History of Present Illness: ICU Consult Note for Dr. Draper HPI: 67 y/o male with PMHx of CAD s/p CABG (quad bypass) 2016, ESRD on HD MWF and DM2 on medicine telemetry floor admitted for chest pain x 4 days with mild nausea and vomiting. Admitted 03/15. ICU being consulted for unresponsiveness and hypotension (see multidisciplinary [employer]ANB[employer]OG SUPERVISOR note 03/18). Patient had [employer]ANB[employer]Y [employer]OG SUPERVISOR previously after his first night in the hospital on 03/16 having hypotension after nitro (see multidisciplinary CRANB[employer]Y BOG SUPERVISOR note 03/16). Per LOAN AUDITOR patient was responsive before sedation and intubation. Patient currently not responsive so history limited to medical records. ROS: Unable to be obtained due to patient condition. PMHx: CAD s/p CABG quad bypass 2016 with stent, inferior SD Oct 2017, ESRD on HD MWF x 5-6 years, DM2 PSHx: CABG, jose, PUD surgery 4 years ago FHx, SocHx, Meds: See admission note Allergies: NKDA Review of Systems - Review of Systems Systems not reviewed;Unavailable: Acuity of Condition, Intubated Past Patient History - Past Medical History & Family History Past Medical History?: Yes - Past Social History Smoking Status: Former Smoker - CARDIAC Hx Cardiac Disorders: Yes Hx Congestive Heart Failure: Yes Hx Hypercholesterolemia: Yes Hx Hypertension: Yes - PULMONARY Hx Respiratory Disorders: No - NEUROLOGICAL Hx Neurological Disorder: No - HEENT Hx HEENT Problems: No - RENAL Hx Chronic Kidney Disease: Yes Date of Last Dialysis Treatment: 03/15/18 Hx Kidney Stones: No - ENDOCRINE/METABOLIC Hx Endocrine Disorders: Yes Hx Diabetes Mellitus Type 2: Yes - HEMATOLOGICAL/ONCOLOGICAL Hx Blood Disorders: Yes Hx Anemia: Yes - INTEGUMENTARY Hx Dermatological Problems: No - MUSCULOSKELETAL/RHEUMATOLOGICAL Hx Musculoskeletal Disorders: No Hx Falls: No - GASTROINTESTINAL Hx Gastrointestinal Disorders: Yes - GENITOURINARY/GYNECOLOGICAL Hx Genitourinary Disorders: No - PSYCHIATRIC Hx Psychophysiologic Disorder: No Hx Substance Use: No - SURGICAL HISTORY Hx Surgeries: Yes Hx Cholecystectomy: Yes Hx Coronary Artery Bypass Graft: Yes - ANESTHESIA Hx Anesthesia: Yes Hx Anesthesia Reactions: No Hx Malignant Hyperthermia: No Meds Allergies/Adverse Reactions: Allergies Allergy/AdvReac Type Severity Reaction Status Date / Time No Known Allergies Allergy Verified 03/15/18 21:11 - Medications Medications: Current Medications Albuterol (Ventolin Hfa 90 Mcg/Actuation (8 G)) 2 puff IH QID [facility] Last Admin: 03/18/18 15:40 Dose: Not Given Belladonna/Phenobarbital () 1 tab PO BID [facility] Last Admin: 03/18/18 10:15 Dose: Not Given Famotidine (Pepcid) 20 mg PO DAILY [facility] Last Admin: 03/18/18 10:16 Dose: Not Given Meropenem 500 mg/ Sodium (Chloride) 100 mls @ 100 mls/hr IVPB Q12H [facility]; Protocol Last Admin: 03/18/18 15:21 Dose: 100 mls/hr Amikacin Sulfate 500 mg/ (Sodium Chloride) 102 mls @ 102 mls/hr IVPB ONCE ONE; Protocol Stop: 03/18/18 17:59 Dopamine HCl/Dextrose (Dopamine 400mg/250ml D5w) 400 mg in 250 mls @ 2.436 mls/hr IV .Q24H PRN; Protocol PRN Reason: TITRATE PER MD ORDER Norepinephrine Bitartrate 4 mg (/ Dextrose) 254 mls @ 15.24 mls/hr IV .[id number] PRN; Protocol PRN Reason: TITRATE PER MD ORDER Sodium Bicarbonate 50 meq/ (Sodium Chloride) 1,050 mls @ 75 mls/hr IV .Q14H [facility] Metoclopramide HCl (Reglan) 5 mg IVP TIDAC [facility] Last Admin: 03/18/18 12:37 Dose: Not Given Ondansetron HCl (Zofran Inj) 4 mg IVP Q8 PRN PRN Reason: Nausea/Vomiting Last Admin: 03/17/18 23:43 Dose: 4 mg Pregabalin (Lyrica) 25 mg PO DAILY [facility] Last Admin: 03/18/18 10:15 Dose: Not Given Rosuvastatin Calcium (Crestor) 5 mg PO HS [facility] Last Admin: 03/17/18 22:23 Dose: 5 mg Sevelamer Carbonate (Renvela) 800 mg PO TID [facility] Last Admin: 03/18/18 15:22 Dose: Not Given Vitamin B Complex/Vit C/Folic Acid (Nephro-Benjamin) 1 tab PO 0800 [facility] Last Admin: 03/18/18 07:40 Dose: 1 tab Physical Exam - Constitutional Appears: Other Additional comments: sedated, intubated - Head Exam Head Exam: ATRAUMATIC, NORMAL INSPECTION, NORMOCEPHALIC - Neck Exam Neck exam: Positive for: Normal Inspection - Respiratory Exam Respiratory Exam: Clear to Auscultation Bilateral, NORMAL BREATHING PATTERN - Cardiovascular Exam Cardiovascular Exam: Tachycardia, REGULAR RHYTHM - GI/Abdominal Exam GI & Abdominal Exam: Normal Bowel Sounds, Soft. absent: Bruit, Guarding, Hyperactive Bowel Sounds, Rebound, Rigid Additional comments: abdominal exam performed after patient intubated and sedated, so unable to determine guarding/tenderness - Extremities Exam Extremities exam: Positive for: normal inspection, pedal pulses present. Negative for: joint swelling Additional comments: cool lower extremities - Neurological Exam Additional comments: intubated, sedated - Skin Skin Exam: Dry, Intact, Normal Color Results - Vital Signs Recent Vital Signs: Last Vital Signs Temp 96.5 F L 03/18/18 12:30 Pulse 95 H 03/18/18 14:45 Resp 16 03/18/18 12:30 BP 94/35 L 03/18/18 12:30 Pulse Ox 95 03/18/18 12:30 - Labs Result Diagrams: 03/18/18 16:29 03/18/18 16:17 Labs: Laboratory Results - last 24 hr 03/17/18 03/17/18 03/18/18 17:06 21:02 00:11 WBC 8.8 RBC 5.69 Hgb 16.6 Hct 49.7 MCV 87.3 MCH 29.2 MCHC 33.5 RDW 17.9 H Plt Count 154 MPV 10.5 Neut % (Auto) Lymph % (Auto) [place] % (Auto) Eos % (Auto) Baso % (Auto) Neut # (Auto) Lymph # (Auto) [place] # (Auto) Eos # (Auto) Baso # (Auto) Neutrophils % (Manual) Band Neutrophils % Lymphocytes % (Manual) Monocytes % (Manual) Myelocytes % Promyelocytes % Toxic Granulation Platelet Estimate Large Platelets Anisocytosis (manual) Puncture Site pCO2 pO2 HCO3 ABG pH ABG Total CO2 ABG O2 Saturation ABG Base Excess Vern Test ABG Potassium A-a O2 Difference Respiratory Index Glucose Lactate Vent Mode FiO2 Inspiratory BiPAP Expiratory BiPAP Crit Value Called To Crit Value Called By Crit Value Read Back Blood Gas Notified Time Sodium Potassium Chloride Carbon Dioxide Anion Gap BUN Creatinine Est GFR ( Amer) Est GFR (Non-Af Amer) POC Glucose (mg/dL) 155 H 172 H Random Glucose Calcium Total Bilirubin Direct Bilirubin AST ALT Alkaline Phosphatase Total Protein Albumin Globulin Albumin/Globulin Ratio Amylase Lipase Alpha Fetoprotein Carcinoembryonic Ag CA 19-9 Antigen Arterial Blood Potassium Random Vancomycin Hepatitis A IgM Ab Hep Bs Antigen Hep B Core IgM Ab Hepatitis C Antibody 03/18/18 03/18/18 03/18/18 06:23 09:40 09:40 WBC RBC Hgb Hct MCV MCH MCHC RDW Plt Count MPV Neut % (Auto) Lymph % (Auto) [place] % (Auto) Eos % (Auto) Baso % (Auto) Neut # (Auto) Lymph # (Auto) [place] # (Auto) Eos # (Auto) Baso # (Auto) Neutrophils % (Manual) Band Neutrophils % Lymphocytes % (Manual) Monocytes % (Manual) Myelocytes % Promyelocytes % Toxic Granulation Platelet Estimate Large Platelets Anisocytosis (manual) Puncture Site pCO2 pO2 HCO3 ABG pH ABG Total CO2 ABG O2 Saturation ABG Base Excess Vern Test ABG Potassium A-a O2 Difference Respiratory Index Glucose Lactate Vent Mode FiO2 Inspiratory BiPAP Expiratory BiPAP Crit Value Called To Crit Value Called By Crit Value Read Back Blood Gas Notified Time Sodium Potassium Chloride Carbon Dioxide Anion Gap BUN Creatinine Est GFR ( Amer) Est GFR (Non-Af Amer) POC Glucose (mg/dL) 211 H Random Glucose Calcium Total Bilirubin 0.6 Direct Bilirubin 0.6 H AST 367 H D ALT 403 H D Alkaline Phosphatase 234 H Total Protein 7.7 Albumin 4.4 Globulin 3.2 Albumin/Globulin Ratio 1.4 Amylase Lipase Alpha Fetoprotein Carcinoembryonic Ag CA 19-9 Antigen Arterial Blood Potassium Random Vancomycin Hepatitis A IgM Ab Negative Hep Bs Antigen Negative Hep B Core IgM Ab Negative Hepatitis C Antibody Negative Negative 03/18/18 03/18/18 03/18/18 09:40 11:29 13:09 WBC 8.2 RBC 5.51 Hgb 16.3 Hct 48.0 MCV 87.1 MCH 29.5 MCHC 33.8 RDW 17.8 H Plt Count 161 MPV 10.6 Neut % (Auto) 79.8 H Lymph % (Auto) 3.7 L [place] % (Auto) 15.0 H Eos % (Auto) 1.3 Baso % (Auto) 0.2 Neut # (Auto) 6.5 Lymph # (Auto) 0.3 L [place] # (Auto) 1.2 H Eos # (Auto) 0.1 Baso # (Auto) 0.0 Neutrophils % (Manual) 43 L Band Neutrophils % 31 H* Lymphocytes % (Manual) 5 L Monocytes % (Manual) 16 H Myelocytes % 4 H Promyelocytes % 1 H Toxic Granulation Present Platelet Estimate Normal Large Platelets Present Anisocytosis (manual) Slight Puncture Site pCO2 pO2 HCO3 ABG pH ABG Total CO2 ABG O2 Saturation ABG Base Excess Vern Test ABG Potassium A-a O2 Difference Respiratory Index Glucose Lactate Vent Mode FiO2 Inspiratory BiPAP Expiratory BiPAP Crit Value Called To Crit Value Called By Crit Value Read Back Blood Gas Notified Time Sodium 139 Potassium 4.5 Chloride 92 L Carbon Dioxide 16 L Anion Gap 36 H BUN 20 Creatinine 3.7 H Est GFR ( Amer) 20 Est GFR (Non-Af Amer) 17 POC Glucose (mg/dL) 138 H Random Glucose 98 D Calcium 10.8 H Total Bilirubin Direct Bilirubin AST ALT Alkaline Phosphatase Total Protein Albumin Globulin Albumin/Globulin Ratio Amylase 421 H D Lipase 55 Alpha Fetoprotein Carcinoembryonic Ag 21.4 H CA 19-9 Antigen 27.4 Arterial Blood Potassium Random Vancomycin Hepatitis A IgM Ab Hep Bs Antigen Hep B Core IgM Ab Hepatitis C Antibody 03/18/18 03/18/18 03/18/18 13:09 13:25 14:24 WBC RBC Hgb Hct MCV MCH MCHC RDW Plt Count MPV Neut % (Auto) Lymph % (Auto) [place] % (Auto) Eos % (Auto) Baso % (Auto) Neut # (Auto) Lymph # (Auto) [place] # (Auto) Eos # (Auto) Baso # (Auto) Neutrophils % (Manual) Band Neutrophils % Lymphocytes % (Manual) Monocytes % (Manual) Myelocytes % Promyelocytes % Toxic Granulation Platelet Estimate Large Platelets Anisocytosis (manual) Puncture Site pCO2 pO2 HCO3 ABG pH ABG Total CO2 ABG O2 Saturation ABG Base Excess Vern Test ABG Potassium A-a O2 Difference Respiratory Index Glucose Lactate Vent Mode FiO2 Inspiratory BiPAP Expiratory BiPAP Crit Value Called To Crit Value Called By Crit Value Read Back Blood Gas Notified Time Sodium Potassium Chloride Carbon Dioxide Anion Gap BUN Creatinine Est GFR ( Amer) Est GFR (Non-Af Amer) POC Glucose (mg/dL) 62 L Random Glucose Calcium Total Bilirubin Direct Bilirubin AST ALT Alkaline Phosphatase Total Protein Albumin Globulin Albumin/Globulin Ratio Amylase Lipase Alpha Fetoprotein 4.6 Carcinoembryonic Ag CA 19-9 Antigen Arterial Blood Potassium Random Vancomycin < 5.0 Hepatitis A IgM Ab Hep Bs Antigen Hep B Core IgM Ab Hepatitis C Antibody 03/18/18 03/18/18 03/18/18 14:33 14:52 15:53 WBC RBC Hgb Hct MCV MCH MCHC RDW Plt Count MPV Neut % (Auto) Lymph % (Auto) [place] % (Auto) Eos % (Auto) Baso % (Auto) Neut # (Auto) Lymph # (Auto) [place] # (Auto) Eos # (Auto) Baso # (Auto) Neutrophils % (Manual) Band Neutrophils % Lymphocytes % (Manual) Monocytes % (Manual) Myelocytes % Promyelocytes % Toxic Granulation Platelet Estimate Large Platelets Anisocytosis (manual) Puncture Site L fem pCO2 26 L pO2 380 H HCO3 3.3 L* ABG pH 6.87 L* ABG Total CO2 5.6 L ABG O2 Saturation 97.9 ABG Base Excess -27.8 L Vern Test Na ABG Potassium 4.3 A-a O2 Difference 301.0 Respiratory Index 0.8 Glucose 316 H Lactate > 20.0 H* Vent Mode Bipap FiO2 100.0 Inspiratory BiPAP 12 Expiratory BiPAP 6 Crit Value Called To Baron ellison Crit Value Called By Geremias Crit Value Read Back Y Blood Gas Notified Time 1559 Sodium 135.0 Potassium Chloride 88.0 L Carbon Dioxide Anion Gap BUN Creatinine Est GFR ( Amer) Est GFR (Non-Af Amer) POC Glucose (mg/dL) 50 L 46 L Random Glucose Calcium Total Bilirubin Direct Bilirubin AST ALT Alkaline Phosphatase Total Protein Albumin Globulin Albumin/Globulin Ratio Amylase Lipase Alpha Fetoprotein Carcinoembryonic Ag CA 19-9 Antigen Arterial Blood Potassium 4.3 Random Vancomycin Hepatitis A IgM Ab Hep Bs Antigen Hep B Core IgM Ab Hepatitis C Antibody Assessment & Plan - Assessment and Plan (Free Text) Assessment: 67 y/o male with PMHx of CAD s/p CABG (quad bypass) 2016, ESRD on HD MWF and DM2 on medicine telemetry floor admitted for chest pain x 4 days with mild nausea and vomiting. ICU being consulted for unresponsiveness and hypotension. Patient s/p intubation in ICU and stabilized. Neuro -s/p ativan 2 mg, precedex -patient intubated. Patient unresponsive. CV -s/p [employer]ANB[employer]Y [employer]OG SUPERVISOR 03/16 and 03/18. The latter, ICU consulted and accepted patient. -dopamine -levophed -CAD s/p CAGB quad bypass 2017: --crestor 5 mg held due to increasing LFTs --troponins positive x 2 on 03/17, and today 03/18 last read critical value 14 - > Dr. Hebert aware, STAT EKG ordered, Dr. Ferrell being consulted -prior EKGs with sinus tachy. Negative d-dimer. Pulm -scheduled albuterol qid -intubated, vented. PRVC: rate 20, 500 TV, FiO2 90%, PEEP 5 -CXR s/p intubation confirmed tube placement Renal -on HD MWF -per chart review, extra dialysis Sun 03/17 due to hyperkalemia -nephro following, appreciate [facility] -history of PUD: , pepcid 20 mg daily -UPRIGHT CXR pending -gastric tube drained >700 cc nonviscous brown substance upon intubation -pending CTAP and CT Angiogram AP -lactate > 20 in stat ABG once transferred down to ICU today 03/18 - possible mesenteric ischemia? -LFTs uptrending - statin held -Dr. Urrutia GI consulted, appreciate recs -Dr. Mohamud surgery consulted, appreciate recjamie ID -on amikacin started 03/18 -merrem started 03/18 -vanc 03/17 before dialysis x 1, cefepime also d/maria fernanda 03/17 -Dr. Kd ROJAS consulted, appreciate recs Endo -ISS -hypoglycemia protocol -accuchecks q6h -s/p hypoglycemia episode 03/18 BG <50 -> s/p D50 x 2 Ofelia Galindo PGY1
[2018-03-18 16:33] LABS: EOS # 0.3 K/uL (0.0-0.7)
[2018-03-18 16:34] LABS: INR 1.5; PROTHROMBIN TIME 16.7 SECONDS (9.7-12.2)
[2018-03-18] MEDS ORDERED: Dexmedetomidine Hydrochloride 200 MCG in Sodium Chloride 0.9% 48 ML IV PRN (16:37)
[2018-03-18] MEDS ORDERED: Etomidate 20 mg/10ml Inj IV ONE (16:39)
[2018-03-18] MEDS: Sodium Bicarbonate (8.4%) 50 Meq Syringe IVP SCH ×3 (16:45→16:55)
[2018-03-18 17:00] LABS: RED CELL DISTRIBUTION WIDTH 19.9 % (11.5-14.5)
[2018-03-18 17:17] LABS: BASO # 0.1 K/uL (0.0-0.2); BASO % 0.4 % (0.0-2.0); EOS % 2.2 % (0.0-4.0); HEMOGLOBIN 17.2 g/dL (12.0-18.0); LYMPH # 1.9 K/uL (1.0-4.3); LYMPH % 12.7 % (20.0-40.0); MEAN CORPUSCULAR HEMOGLOBIN 28.2 pg (27.0-31.0); MEAN CORPUSCULAR HGB CONC 29.7 g/dL (33.0-37.0); MEAN PLATELET VOLUME 11.5 fL (7.2-11.7); MONO # 1.6 K/uL (0.0-0.8); MONO % 10.6 % (0.0-10.0); NEUT # 10.8 K/uL (1.8-7.0); NEUT % 74.1 % (50.0-75.0); NRBC % 0.3 % (0.0-2.0); PLATELET COUNT 211 K/uL (130-400); RBC 6.09 Mil/uL (4.40-5.90)
[2018-03-18 17:18] LABS: WHITE BLOOD COUNT 14.7 K/uL (4.8-10.8)
[2018-03-18 17:30] LABS: ALB/GLOB RATIO 1.4 (1.0-2.1); ALBUMIN 4.7 g/dL (3.5-5.0); BLOOD UREA NITROGEN 32 mg/dL (9-20); CALCIUM 9.8 mg/dl (8.6-10.4); GFR NON-AFRICAN AMERICAN 9
[2018-03-18] MEDS ORDERED: Calcium Gluconate 4.65 mEq/10 ml Inj IV ONE (17:30)
[2018-03-18] MEDS ORDERED: Iohexol 240 (50 ml) PO SCH (17:30)
[2018-03-18 17:31] LABS: ALT/SGPT 1529 U/L (21-72)
[2018-03-18 17:36] LABS: AST/SGOT 1519 U/L (17-59)
[2018-03-18 17:46] LABS: ARTERIAL BLOOD GAS HCO3 8.8 mmol/L (21-28); ARTERIAL BLOOD GAS O2 SAT 97.9 % (95-98); ARTERIAL BLOOD GAS PCO2 33 mm/Hg (35-45); ARTERIAL BLOOD GAS PH 7.04 (7.35-7.45); ARTERIAL BLOOD GAS PO2 370 mm/Hg (80-100); ARTERIAL BLOOD GAS TCO2 9.9 mmol/L (22-28)
--- NOTE | 2018-03-18 17:50 | CP.PCM.PN ---
Subjective - Date & Time of Evaluation Date of Evaluation: 03/18/18 Time of Evaluation: 17:50 - Subjective Subjective: events noted! PT IN ICU NOW . AFEBRILE. S/P HD TODAY HYPOTENSIVE,HPOGLYCEMIC ON BICARBONATE DRIP, VASOPRESSORS, iv BOLUSES INTUBATED, UNRESPONSIVE. +VE NGT- DRAINING FEACOLITH MATERIAL, LABS NOTED. +VE TROPINONS HYPERLACTATEMIA VANCO RANDOM <5.[id number] ABDOMEN/PELVIS W/O CONTRAST -NOTED. FLUID-FILLED STOMACH,ADYNAMIC ILEUS. pARTIAL GASTRECTOMY WITH GASTROJEJUNOSTOMY hIATAL HERNIA. eCCHYMOSES OVER HER LEFT LOWER ANTERIOR ABDOMINAL WALL. nONSPECIFIC cARDIOMEGALY /CABG. Objective - Vital Signs/Intake and Output Vital Signs (last 24 hours): Temp Pulse Resp BP Pulse Ox 96.5 F L 95 H 16 94/35 L 95 03/18/18 12:30 03/18/18 14:45 03/18/18 12:30 03/18/18 12:30 03/18/18 12:30 - Medications Medications: Current Medications Albuterol (Ventolin Hfa 90 Mcg/Actuation (8 G)) 2 puff IH QID [facility] Last Admin: 03/18/18 15:40 Dose: Not Given Belladonna/Phenobarbital () 1 tab PO BID [facility] Last Admin: 03/18/18 10:15 Dose: Not Given Famotidine (Pepcid) 20 mg PO DAILY [facility] Last Admin: 03/18/18 10:16 Dose: Not Given Meropenem 500 mg/ Sodium (Chloride) 100 mls @ 100 mls/hr IVPB Q12H [facility]; Protocol Last Admin: 03/18/18 15:21 Dose: 100 mls/hr Amikacin Sulfate 500 mg/ (Sodium Chloride) 102 mls @ 102 mls/hr IVPB ONCE ONE; Protocol Stop: 03/18/18 17:59 Dopamine HCl/Dextrose (Dopamine 400mg/250ml D5w) 400 mg in 250 mls @ 2.436 mls/hr IV .Q24H PRN; Protocol PRN Reason: TITRATE PER MD ORDER Norepinephrine Bitartrate 4 mg (/ Dextrose) 254 mls @ 15.24 mls/hr IV .[id number] PRN; Protocol PRN Reason: TITRATE PER MD ORDER Sodium Bicarbonate 50 meq/ (Sodium Chloride) 1,050 mls @ 75 mls/hr IV .Q14H [facility] Dexmedetomidine HCl 200 mcg/ (Sodium Chloride) 50 mls @ 1.62 mls/hr IV TITR PRN; Protocol PRN Reason: Sedation Metoclopramide HCl (Reglan) 5 mg IVP TIDAC [facility] Last Admin: 03/18/18 12:37 Dose: Not Given Ondansetron HCl (Zofran Inj) 4 mg IVP Q8 PRN PRN Reason: Nausea/Vomiting Last Admin: 03/17/18 23:43 Dose: 4 mg Pregabalin (Lyrica) 25 mg PO DAILY [facility] Last Admin: 03/18/18 10:15 Dose: Not Given Rosuvastatin Calcium (Crestor) 5 mg PO HS [facility] Last Admin: 03/17/18 22:23 Dose: 5 mg Sevelamer Carbonate (Renvela) 800 mg PO TID [facility] Last Admin: 03/18/18 15:22 Dose: Not Given Vitamin B Complex/Vit C/Folic Acid (Nephro-Benjamin) 1 tab PO 0800 [facility] Last Admin: 03/18/18 07:40 Dose: 1 tab - Labs Labs: 03/18/18 16:29 03/18/18 16:17 PT 16.7 SECONDS (9.7-12.2) H D 03/18/18 16:17 INR 1.5 D 03/18/18 16:17 APTT 55 SECONDS (21-34) H D 03/18/18 16:17 - Constitutional Appears: Older Than Stated Age, Chronically Ill - Head Exam Head Exam: NORMAL INSPECTION - Eye Exam Eye Exam: PERRL. absent: Scleral icterus - ENT Exam ENT Exam: Mucous Membranes Dry - Neck Exam Neck Exam: Normal Inspection. absent: Meningismus - Respiratory Exam Respiratory Exam: Clear to Ausculation Bilateral, NORMAL BREATHING PATTERN - Cardiovascular Exam Cardiovascular Exam: Tachycardia, REGULAR RHYTHM, +S1, +S2 Additional comments: SCAR OF cabg [place]. - GI/Abdominal Exam GI & Abdominal Exam: Soft, Hypoactive Bowel Sounds (RIGHT UPPER QUADRANT SCAR/MIDLINE SCAR+VE) - Extremities Exam Extremities Exam: absent: Calf Tenderness, Pedal Edema - Neurological Exam Neurological Exam: Altered (.) - Skin Skin Exam: Normal Color. absent: Rash Assessment and Plan (1) Sepsis Status: Acute (2) Chest pain Status: Acute (3) Abdominal pain Status: Acute (4) ESRD (end stage renal disease) on dialysis Status: Acute (5) History of peptic ulcer disease Status: Chronic (6) Diabetes Status: Acute (7) S/P CABG (coronary artery bypass graft) Status: Acute - Assessment and Plan (Free Text) Plan: PLAN GOT IV VANCOMYCIN 500MG IVPB POST HD 03/17/18. DC IV CEFEPIME 500MG IVPB QD DAILY 03/17/18. START iv MERREM 500 MG iv PIGGYBACK EVERY 12 HOURLY TO COVER FOR NOSOCOMIAL ESBL ENTEROBACTERICIAE 1 STAT DOSE OF iv AMIKACIN 1 G POSTDIALYSIS 03/18/18 CONTINUE iv VANCOMYCIN 1 G iv PIGGYBACK TODAY FOLLOWED BY 1 G POST-EACH HEMODIALYSIS MWF X5 DOSES. ABDOMINAL ULTRASOUND -VE PVT/NODULAR FATTY LIVER GI ON BOARD. CARDIAC W/U PER CARDIOLOGY POSITIVE TROPONINS / SD/ ? VIRAL MYOCARDITIS-WILL CHECK FOR ATYPICAL TITERS. CASE DISCUSSED WITH RESIDENTS AND STAFF. SOURCE OF SEPSIS /? INTRA-ABDOMINAL, ?ISCHEMIC /PANCREATITIS VS OCCULT MALIGNANCY. ISCHEMIC / ? ACS-SD +VE TROPININS. SURGICAL CONSULT IN PROGRESS. PROGNOSIS GUARDED.
[2018-03-18] MEDS ORDERED: Vancomycin 1 gm/NS 200 ml 1 GM/200 ML BAG IVPB STA (17:57)
--- NOTE | 2018-03-18 17:57 | RAD ---
HISTORY: s/p intubation COMPARISON: Chest x-ray performed 03/18/18 at 1444 hr TECHNIQUE: Chest, one view. FINDINGS: Endotracheal tube terminates approximately 3.4 cm above the [place]. LUNGS: No focal consolidation. 8 mm probable calcified granuloma, right midlung zone. Please note that chest x-ray has limited sensitivity for the detection of pulmonary masses. PLEURA: No significant pleural effusion identified. No definite pneumothorax . CARDIOVASCULAR: Median sternotomy wires with evidence of CABG. Borderline cardiomegaly. OSSEOUS STRUCTURES: Degenerative changes of the spine. VISUALIZED UPPER ABDOMEN: Unremarkable. OTHER FINDINGS: Vascular stent, left axillary region. IMPRESSION: Endotracheal tube. Nasogastric tube. Additional findings as above.
--- NOTE | 2018-03-18 18:03 | RAD ---
Date of service: 03/18/2018 HISTORY: Upright to evaluate for free air COMPARISON: March 18, 2018 Time of the most recent examination: 16:44. FINDINGS: LUNGS: No active pulmonary disease. PLEURA: No significant pleural effusion identified, no pneumothorax apparent. CARDIOVASCULAR: No radiographic findings to suggest acute or significant cardiovascular disease. Incidental Finding(s): Postoperative changes related to sternotomy. No radiographic findings to suggest acute or significant cardiovascular disease. OSSEOUS STRUCTURES: No significant abnormalities. VISUALIZED UPPER ABDOMEN: Normal. OTHER FINDINGS: Stable position of support apparatus including nasogastric tube and endotracheal tube. IMPRESSION: No significant interval change compared to the prior examination(s). This includes the recent chest x-ray performed approximately 40 min before this current study. No visible free air.
[2018-03-18 18:05] LABS: BANDS 35 % (0-2); BASOPHIL 1 % (0-2); EOSINOPHIL 1 % (0-4); LYMPHOCYTE 7 % (20-40); MONOCYTE 9 % (0-10); NEUTROPHIL 47 % (50-75); PLATELET ESTIMATE NORMAL (NORMAL); TOTAL CELLS COUNTED 100
[2018-03-18 18:06] LABS: GIANT PLATELETS PRESENT; LARGE PLATELETS PRESENT
[2018-03-18] MEDS ORDERED: Heparin25000 units/250ml 1/2NS 25,000 UNITS/250 ML BAG IV PRN ×2 (18:09→19:05)
[2018-03-18] MEDS ORDERED: Glucagon Recombinant 1 mg Inj IM PRN (18:45)
[2018-03-18] MEDS ORDERED: Dextrose 50% SYRINGE Inj (50 ml) IV PRN (18:45)
--- NOTE | 2018-03-18 19:12 | CP.PCM.CON ---
<Odell Burciaga - Last Filed: 03/18/18 19:04> History of Present Illness - History of Present Illness History of Present Illness: General Surgery Consult for Dr. Lanier This is a 67M with a PMH of CAD with multiple cardiac events and s/p CABG X4 with occlusion of all 4 vessels, ESRD, GERD, PUD s/p multiple abdominal surgeries. He presented to the hospital 3 days ago due to chest pain. He has a history of admissions for abdominal pain that have all resolved with conservative treatment. Durring this admission he also complained of abdominal pain. Earlier today a TREE SURGEON was called due to lethargy, the patient was subsequently intubated and brought to the ICU. Along with intubation a NGT was p laced and hemobilious output was removed. Patient is unable to provide subjective information. All information retrieved from charts and other providers. PMHx: CAD s/p CABG quad bypass 2016 with stent, inferior [place] Oct 2017, ESRD on HD MWF x 5-6 years, DM2 PSHx: CABG, jose, PUD surgery 4 years ago FHx, SocHx, Meds: See admission note Allergies: NKDA Review of Systems - Review of Systems Systems not reviewed;Unavailable: Acuity of Condition, Intubated Past Patient History - Past Medical History & Family History Past Medical History?: Yes - Past Social History Smoking Status: Former Smoker - CARDIAC Hx Cardiac Disorders: Yes Hx Congestive Heart Failure: Yes Hx Hypercholesterolemia: Yes Hx Hypertension: Yes - PULMONARY Hx Respiratory Disorders: No - NEUROLOGICAL Hx Neurological Disorder: No - HEENT Hx HEENT Problems: No - RENAL Hx Chronic Kidney Disease: Yes Date of Last Dialysis Treatment: 03/15/18 Hx Kidney Stones: No - ENDOCRINE/METABOLIC Hx Endocrine Disorders: Yes Hx Diabetes Mellitus Type 2: Yes - HEMATOLOGICAL/ONCOLOGICAL Hx Blood Disorders: Yes Hx Anemia: Yes - INTEGUMENTARY Hx Dermatological Problems: No - MUSCULOSKELETAL/RHEUMATOLOGICAL Hx Musculoskeletal Disorders: No Hx Falls: No - GASTROINTESTINAL Hx Gastrointestinal Disorders: Yes - GENITOURINARY/GYNECOLOGICAL Hx Genitourinary Disorders: No - PSYCHIATRIC Hx Psychophysiologic Disorder: No Hx Substance Use: No - SURGICAL HISTORY Hx Surgeries: Yes Hx Cholecystectomy: Yes Hx Coronary Artery Bypass Graft: Yes - ANESTHESIA Hx Anesthesia: Yes Hx Anesthesia Reactions: No Hx Malignant Hyperthermia: No Meds Allergies/Adverse Reactions: Allergies Allergy/AdvReac Type Severity Reaction Status Date / Time No Known Allergies Allergy Verified 03/15/18 21:11 - Medications Medications: Current Medications Albuterol (Ventolin Hfa 90 Mcg/Actuation (8 G)) 2 puff IH QID [facility] Last Admin: 03/18/18 15:40 Dose: Not Given Aspirin (Aspirin Supp) 300 mg [place] DAILY [facility] Belladonna/Phenobarbital () 1 tab PO BID [facility] Last Admin: 03/18/18 10:15 Dose: Not Given Clopidogrel Bisulfate (Plavix) 75 mg PO DAILY [facility] Dextrose (Dextrose 50% Inj) 0 ml IV STAT PRN; Protocol PRN Reason: Hypoglycemia Protocol Dextrose (Glutose 15) 0 gm PO ONCE PRN; Protocol PRN Reason: Hypoglycemia Protocol Famotidine (Pepcid) 20 mg PO DAILY [facility] Last Admin: 03/18/18 10:16 Dose: Not Given Glucagon (Glucagen Diagnostic Kit) 0 mg IM STAT PRN; Protocol PRN Reason: Hypoglycemia Protocol Meropenem 500 mg/ Sodium (Chloride) 100 mls @ 100 mls/hr IVPB Q12H NIKIA; Protocol Last Admin: 03/18/18 15:21 Dose: 100 mls/hr Dopamine HCl/Dextrose (Dopamine 400mg/250ml D5w) 400 mg in 250 mls @ 2.436 mls/hr IV .Q24H PRN; Protocol PRN Reason: TITRATE PER MD ORDER Norepinephrine Bitartrate 4 mg (/ Dextrose) 254 mls @ 15.24 mls/hr IV .[id number] PRN; Protocol PRN Reason: TITRATE PER MD ORDER Last Admin: 03/18/18 16:20 Dose: 4 mcg/min, 15.24 mls/hr Sodium Bicarbonate 50 meq/ (Sodium Chloride) 1,050 mls @ 75 mls/hr IV .Q14H NIKIA Last Admin: 03/18/18 16:22 Dose: 75 mls/hr Vancomycin/Sodium Chloride (Vancomycin 1 Gm/Ns 200 Ml) 1 gm in 200 mls @ 133 mls/hr IVPB STAT STA; Protocol Stop: 03/18/18 19:27 Last Admin: 03/18/18 18:00 Dose: 133 mls/hr Vancomycin HCl 500 mg/ Sodium (Chloride) 100 mls @ 100 mls/hr IVPB F [facility]; Protocol Heparin Sodium/Sodium Chloride (Heparin 23057 Units/250ml 1/2 Normal Saline) 25,000 units in 250 mls @ 3.897 mls/hr IV .Q24H PRN; Protocol PRN Reason: ADJUST RATE PER PROTOCOL Dextrose (Dextrose 5% In Water 1000 Ml) 1,000 mls @ 0 mls/hr IV .Q0M PRN; Protocol PRN Reason: Hypoglycemia Protocol Dexmedetomidine HCl 200 mcg/ (Sodium Chloride) 50 mls @ 3.52 mls/hr IV TITR PRN; Protocol Metoclopramide HCl (Reglan) 5 mg IVP TIDAC [facility] Last Admin: 03/18/18 12:37 Dose: Not Given Ondansetron HCl (Zofran Inj) 4 mg IVP Q8 PRN PRN Reason: Nausea/Vomiting Last Admin: 03/17/18 23:43 Dose: 4 mg Rosuvastatin Calcium (Crestor) 5 mg PO HS [facility] Last Admin: 03/17/18 22:23 Dose: 5 mg Sevelamer Carbonate (Renvela) 800 mg PO TID [facility] Last Admin: 03/18/18 15:22 Dose: Not Given Vitamin B Complex/Vit C/Folic Acid (Nephro-Benjamin) 1 tab PO 0800 [facility] Last Admin: 03/18/18 07:40 Dose: 1 tab Physical Exam - Constitutional Appears: Toxic Additional comments: intubated - Head Exam Head Exam: ATRAUMATIC, NORMOCEPHALIC - ENT Exam ENT Exam: Mucous Membranes Moist - Respiratory Exam Additional comments: Ventilated - Cardiovascular Exam Cardiovascular Exam: +S1, +S2 - GI/Abdominal Exam GI & Abdominal Exam: Soft. absent: Distended, Firm, Guarding, Rigid - Neurological Exam Additional comments: sedated - Skin Skin Exam: Dry, Intact, Warm Results - Vital Signs Recent Vital Signs: Last Vital Signs Temp 96.5 F L 03/18/18 12:30 Pulse 100 H 03/18/18 16:20 Resp 22 03/18/18 16:20 BP 77/45 L 03/18/18 16:20 Pulse Ox 98 03/18/18 16:20 - Labs Result Diagrams: 03/18/18 16:29 03/18/18 16:17 Labs: Laboratory Results - last 24 hr 03/17/18 03/17/18 03/18/18 17:06 21:02 00:11 WBC 8.8 RBC 5.69 Hgb 16.6 Hct 49.7 MCV 87.3 MCH 29.2 MCHC 33.5 RDW 17.9 H Plt Count 154 MPV 10.5 Neut % (Auto) Lymph % (Auto) [place] % (Auto) Eos % (Auto) Baso % (Auto) Neut # (Auto) Lymph # (Auto) [place] # (Auto) Eos # (Auto) Baso # (Auto) Neutrophils % (Manual) Band Neutrophils % Lymphocytes % (Manual) Monocytes % (Manual) Eosinophils % (Manual) Basophils % (Manual) Myelocytes % Promyelocytes % Toxic Granulation Platelet Estimate Large Platelets Giant Platelets Anisocytosis (manual) PT INR APTT Puncture Site pCO2 pO2 HCO3 ABG pH ABG Total CO2 ABG O2 Saturation ABG Base Excess Vern Test ABG Potassium A-a O2 Difference Respiratory Index Glucose Lactate Vent Mode Mechanical Rate FiO2 Tidal Volume PEEP Inspiratory BiPAP Expiratory BiPAP Crit Value Called To Crit Value Called By Crit Value Read Back Blood Gas Notified Time Sodium Potassium Chloride Carbon Dioxide Anion Gap BUN Creatinine Est GFR ( Amer) Est GFR (Non-Af Amer) POC Glucose (mg/dL) 155 H 172 H Random Glucose Calcium Phosphorus Magnesium Total Bilirubin Direct Bilirubin AST ALT Alkaline Phosphatase Troponin I Total Protein Albumin Globulin Albumin/Globulin Ratio Amylase Lipase Alpha Fetoprotein Carcinoembryonic Ag CA 19-9 Antigen Arterial Blood Potassium Random Vancomycin Hepatitis A IgM Ab Hep Bs Antigen Hep B Core IgM Ab Hepatitis C Antibody 03/18/18 03/18/18 03/18/18 06:23 09:40 09:40 WBC RBC Hgb Hct MCV MCH MCHC RDW Plt Count MPV Neut % (Auto) Lymph % (Auto) [place] % (Auto) Eos % (Auto) Baso % (Auto) Neut # (Auto) Lymph # (Auto) [place] # (Auto) Eos # (Auto) Baso # (Auto) Neutrophils % (Manual) Band Neutrophils % Lymphocytes % (Manual) Monocytes % (Manual) Eosinophils % (Manual) Basophils % (Manual) Myelocytes % Promyelocytes % Toxic Granulation Platelet Estimate Large Platelets Giant Platelets Anisocytosis (manual) PT INR APTT Puncture Site pCO2 pO2 HCO3 ABG pH ABG Total CO2 ABG O2 Saturation ABG Base Excess Vern Test ABG Potassium A-a O2 Difference Respiratory Index Glucose Lactate Vent Mode Mechanical Rate FiO2 Tidal Volume PEEP Inspiratory BiPAP Expiratory BiPAP Crit Value Called To Crit Value Called By Crit Value Read Back Blood Gas Notified Time Sodium Potassium Chloride Carbon Dioxide Anion Gap BUN Creatinine Est GFR ( Amer) Est GFR (Non-Af Amer) POC Glucose (mg/dL) 211 H Random Glucose Calcium Phosphorus Magnesium Total Bilirubin 0.6 Direct Bilirubin 0.6 H AST 367 H D ALT 403 H D Alkaline Phosphatase 234 H Troponin I Total Protein 7.7 Albumin 4.4 Globulin 3.2 Albumin/Globulin Ratio 1.4 Amylase Lipase Alpha Fetoprotein Carcinoembryonic Ag CA 19-9 Antigen Arterial Blood Potassium Random Vancomycin Hepatitis A IgM Ab Negative Hep Bs Antigen Negative Hep B Core IgM Ab Negative Hepatitis C Antibody Negative Negative 03/18/18 03/18/18 03/18/18 09:40 11:29 13:09 WBC 8.2 RBC 5.51 Hgb 16.3 Hct 48.0 MCV 87.1 MCH 29.5 MCHC 33.8 RDW 17.8 H Plt Count 161 MPV 10.6 Neut % (Auto) 79.8 H Lymph % (Auto) 3.7 L [place] % (Auto) 15.0 H Eos % (Auto) 1.3 Baso % (Auto) 0.2 Neut # (Auto) 6.5 Lymph # (Auto) 0.3 L [place] # (Auto) 1.2 H Eos # (Auto) 0.1 Baso # (Auto) 0.0 Neutrophils % (Manual) 43 L Band Neutrophils % 31 H* Lymphocytes % (Manual) 5 L Monocytes % (Manual) 16 H Eosinophils % (Manual) Basophils % (Manual) Myelocytes % 4 H Promyelocytes % 1 H Toxic Granulation Present Platelet Estimate Normal Large Platelets Present Giant Platelets Anisocytosis (manual) Slight PT INR APTT Puncture Site pCO2 pO2 HCO3 ABG pH ABG Total CO2 ABG O2 Saturation ABG Base Excess Vern Test ABG Potassium A-a O2 Difference Respiratory Index Glucose Lactate Vent Mode Mechanical Rate FiO2 Tidal Volume PEEP Inspiratory BiPAP Expiratory BiPAP Crit Value Called To Crit Value Called By Crit Value Read Back Blood Gas Notified Time Sodium 139 Potassium 4.5 Chloride 92 L Carbon Dioxide 16 L Anion Gap 36 H BUN 20 Creatinine 3.7 H Est GFR ( Amer) 20 Est GFR (Non-Af Amer) 17 POC Glucose (mg/dL) 138 H Random Glucose 98 D Calcium 10.8 H Phosphorus Magnesium Total Bilirubin Direct Bilirubin AST ALT Alkaline Phosphatase Troponin I Total Protein Albumin Globulin Albumin/Globulin Ratio Amylase 421 H D Lipase 55 Alpha Fetoprotein Carcinoembryonic Ag 21.4 H CA 19-9 Antigen 27.4 Arterial Blood Potassium Random Vancomycin Hepatitis A IgM Ab Hep Bs Antigen Hep B Core IgM Ab Hepatitis C Antibody 03/18/18 03/18/18 03/18/18 13:09 13:25 14:24 WBC RBC Hgb Hct MCV MCH MCHC RDW Plt Count MPV Neut % (Auto) Lymph % (Auto) [place] % (Auto) Eos % (Auto) Baso % (Auto) Neut # (Auto) Lymph # (Auto) [place] # (Auto) Eos # (Auto) Baso # (Auto) Neutrophils % (Manual) Band Neutrophils % Lymphocytes % (Manual) Monocytes % (Manual) Eosinophils % (Manual) Basophils % (Manual) Myelocytes % Promyelocytes % Toxic Granulation Platelet Estimate Large Platelets Giant Platelets Anisocytosis (manual) PT INR APTT Puncture Site pCO2 pO2 HCO3 ABG pH ABG Total CO2 ABG O2 Saturation ABG Base Excess Vern Test ABG Potassium A-a O2 Difference Respiratory Index Glucose Lactate Vent Mode Mechanical Rate FiO2 Tidal Volume PEEP Inspiratory BiPAP Expiratory BiPAP Crit Value Called To Crit Value Called By Crit Value Read Back Blood Gas Notified Time Sodium Potassium Chloride Carbon Dioxide Anion Gap BUN Creatinine Est GFR ( Amer) Est GFR (Non-Af Amer) POC Glucose (mg/dL) 62 L Random Glucose Calcium Phosphorus Magnesium Total Bilirubin Direct Bilirubin AST ALT Alkaline Phosphatase Troponin I Total Protein Albumin Globulin Albumin/Globulin Ratio Amylase Lipase Alpha Fetoprotein 4.6 Carcinoembryonic Ag CA 19-9 Antigen Arterial Blood Potassium Random Vancomycin < 5.0 Hepatitis A IgM Ab Hep Bs Antigen Hep B Core IgM Ab Hepatitis C Antibody 03/18/18 03/18/18 03/18/18 14:33 14:52 15:23 WBC RBC Hgb Hct MCV MCH MCHC RDW Plt Count MPV Neut % (Auto) Lymph % (Auto) [place] % (Auto) Eos % (Auto) Baso % (Auto) Neut # (Auto) Lymph # (Auto) [place] # (Auto) Eos # (Auto) Baso # (Auto) Neutrophils % (Manual) Band Neutrophils % Lymphocytes % (Manual) Monocytes % (Manual) Eosinophils % (Manual) Basophils % (Manual) Myelocytes % Promyelocytes % Toxic Granulation Platelet Estimate Large Platelets Giant Platelets Anisocytosis (manual) PT INR APTT Puncture Site pCO2 pO2 HCO3 ABG pH ABG Total CO2 ABG O2 Saturation ABG Base Excess Vern Test ABG Potassium A-a O2 Difference Respiratory Index Glucose Lactate Vent Mode Mechanical Rate FiO2 Tidal Volume PEEP Inspiratory BiPAP Expiratory BiPAP Crit Value Called To Crit Value Called By Crit Value Read Back Blood Gas Notified Time Sodium Potassium Chloride Carbon Dioxide Anion Gap BUN Creatinine Est GFR ( Amer) Est GFR (Non-Af Amer) POC Glucose (mg/dL) 50 L 46 L 241 H Random Glucose Calcium Phosphorus Magnesium Total Bilirubin Direct Bilirubin AST ALT Alkaline Phosphatase Troponin I Total Protein Albumin Globulin Albumin/Globulin Ratio Amylase Lipase Alpha Fetoprotein Carcinoembryonic Ag CA 19-9 Antigen Arterial Blood Potassium Random Vancomycin Hepatitis A IgM Ab Hep Bs Antigen Hep B Core IgM Ab Hepatitis C Antibody 03/18/18 03/18/18 03/18/18 15:53 16:17 16:17 WBC RBC Hgb Hct MCV MCH MCHC RDW Plt Count MPV Neut % (Auto) Lymph % (Auto) [place] % (Auto) Eos % (Auto) Baso % (Auto) Neut # (Auto) Lymph # (Auto) [place] # (Auto) Eos # (Auto) Baso # (Auto) Neutrophils % (Manual) Band Neutrophils % Lymphocytes % (Manual) Monocytes % (Manual) Eosinophils % (Manual) Basophils % (Manual) Myelocytes % Promyelocytes % Toxic Granulation Platelet Estimate Large Platelets Giant Platelets Anisocytosis (manual) PT 16.7 H D INR 1.5 D APTT 55 H D Puncture Site L fem pCO2 26 L pO2 380 H HCO3 3.3 L* ABG pH 6.87 L* ABG Total CO2 5.6 L ABG O2 Saturation 97.9 ABG Base Excess -27.8 L Vern Test Na ABG Potassium 4.3 A-a O2 Difference 301.0 Respiratory Index 0.8 Glucose 316 H Lactate > 20.0 H* Vent Mode Bipap Mechanical Rate FiO2 100.0 Tidal Volume PEEP Inspiratory BiPAP 12 Expiratory BiPAP 6 Crit Value Called To Baron ellison Crit Value Called By Geremias Crit Value Read Back Y Blood Gas Notified Time 1559 Sodium 135.0 137 Potassium 4.2 Chloride 88.0 L 89 L Carbon Dioxide < 5 L* D Anion Gap 47 H BUN 32 H Creatinine 6.4 H Est GFR ( Amer) 11 Est GFR (Non-Af Amer) 9 POC Glucose (mg/dL) Random Glucose 311 H D Calcium 9.8 Phosphorus 16.9 H Magnesium 3.3 H Total Bilirubin 0.8 Direct Bilirubin AST 1519 H ALT 1529 H Alkaline Phosphatase 233 H Troponin I 14.1000 H* Total Protein 8.0 Albumin 4.7 Globulin 3.3 Albumin/Globulin Ratio 1.4 Amylase Lipase Alpha Fetoprotein Carcinoembryonic Ag CA 19-9 Antigen Arterial Blood Potassium 4.3 Random Vancomycin Hepatitis A IgM Ab Hep Bs Antigen Hep B Core IgM Ab Hepatitis C Antibody 03/18/18 03/18/18 03/18/18 16:25 16:29 17:43 WBC 14.7 H D RBC 6.09 H Hgb 17.2 Hct 57.9 H MCV 95.0 H D MCH 28.2 MCHC 29.7 L RDW 19.9 H Plt Count 211 MPV 11.5 Neut % (Auto) 74.1 Lymph % (Auto) 12.7 L [place] % (Auto) 10.6 H Eos % (Auto) 2.2 Baso % (Auto) 0.4 Neut # (Auto) 10.8 H Lymph # (Auto) 1.9 [place] # (Auto) 1.6 H Eos # (Auto) 0.3 Baso # (Auto) 0.1 Neutrophils % (Manual) 47 L Band Neutrophils % 35 H* Lymphocytes % (Manual) 7 L Monocytes % (Manual) 9 Eosinophils % (Manual) 1 Basophils % (Manual) 1 Myelocytes % Promyelocytes % Toxic Granulation Platelet Estimate Normal Large Platelets Present Giant Platelets Present Anisocytosis (manual) PT INR APTT Puncture Site Rba pCO2 33 L pO2 370 H HCO3 8.8 L* ABG pH 7.04 L* ABG Total CO2 9.9 L ABG O2 Saturation 97.9 ABG Base Excess -20.8 L Vern Test Na ABG Potassium 3.5 L A-a O2 Difference 230.0 Respiratory Index 0.6 Glucose 338 H Lactate > 20.0 H* Vent Mode Prvc Mechanical Rate 20 FiO2 90.0 Tidal Volume 500 PEEP 5 Inspiratory BiPAP Expiratory BiPAP Crit Value Called To Baron ellison Crit Value Called By eGremias Crit Value Read Back Y Blood Gas Notified Time 1745 Sodium 140.0 Potassium Chloride 92.0 L Carbon Dioxide Anion Gap BUN Creatinine Est GFR ( Amer) Est GFR (Non-Af Amer) POC Glucose (mg/dL) 397 H Random Glucose Calcium Phosphorus Magnesium Total Bilirubin Direct Bilirubin AST ALT Alkaline Phosphatase Troponin I Total Protein Albumin Globulin Albumin/Globulin Ratio Amylase Lipase Alpha Fetoprotein Carcinoembryonic Ag CA 19-9 Antigen Arterial Blood Potassium 3.5 L Random Vancomycin Hepatitis A IgM Ab Hep Bs Antigen Hep B Core IgM Ab Hepatitis C Antibody Assessment & Plan - Assessment and Plan (Free Text) Assessment: 67M in shock Pt with elevated lactate >20 and ph <7 Bands 30+ with rising WBC Troponin increase from 0.5-->14 Discussed case with patient instructor robotics as well as the development associate. This patient maybe suffering from an ischemic event however it is likely cardiac in origin. After discussion with providing team it appears the patient is a poor surgical candidate with a prohibitively high mortality risk. CTA can be carried out when the patient is stable, if major vessel occlusion is found, I recommend endovascular revascularization. D/W Dr. Yannick Burciaga PGY3 <Jesse Lanier - Last Filed: 03/21/18 12:43> Results - Vital Signs Recent Vital Signs: Last Vital Signs Temp 98.3 F 03/19/18 20:00 Pulse 83 03/19/18 23:00 Resp 20 03/19/18 23:00 BP 45/24 L 03/19/18 23:00 Pulse Ox 78 L 03/19/18 23:00 - Labs Result Diagrams: 03/19/18 12:43 03/19/18 12:43 Assessment & Plan - Assessment and Plan (Free Text) Plan: Agree with above assessment and plan. Discussed with Dr. Hebert. Significant cardiac history now with acute cardiac event likely global ischemia. High risk for surgical intervention and mortality.
--- NOTE | 2018-03-18 20:47 | PN ---
DATE: 03/18/2018 SUBJECTIVE: The patient underwent rapid response today following his hemodialysis. He was noted to be lethargic and hypotensive. The patient received Narcan as well as sublingual glucose because he was also noted to be mildly hypoglycemic, IV access could not be achieved and the patient was placed in the Trendelenburg position. The patient is still lethargic but oriented to place. He denies any chest pain. OBJECTIVE: VITAL SIGNS: The latest blood pressure is 94/35 with heart rate of 100, temperature 96.5. HEENT: Pale conjunctiva. CHEST: Clear. HEART: S1, S2 regular. EXTREMITIES: No edema. LABORATORY DATA: Today's hemoglobin and hematocrit 16.3 and 48, white count and platelet count are within normal limits. Today's SMA-7 sodium 139, potassium 4.5, chloride 92, CO2 16, glucose 98, BUN 20, creatinine 3.7. Chest x-ray performed after the rapid response was unremarkable. Abdomen and pelvis CT scan revealed partial gastrectomy with gastrojejunostomy, hiatus hernia, fluid distends the visualized distal thoracic esophagus, possibly due to reflux. Fluid filled stomach noted as well. Dilated small bowel loops to the level of the ileocecal valve suggesting possible adynamic ileus. Cardiomegaly. CABG. Atrophic kidney. Blood cultures negative after 24 hours. ASSESSMENT: 1. Status post rapid response for hypotension, lethargy and hypoglycemia. This is the patient's second response since presentation. 2. Consider underlying hypovolemia. 3. Abdominal pain with questionable areas on the abdomen and pelvis CT scan. 4. Reported melena last night and for that reason aspirin and subcutaneous heparin were discontinued. 5. Coronary artery disease status post coronary artery bypass surgery with totally occluded grafts and severe [place] disease. 6. Mildly depressed ejection fraction. RECOMMENDATIONS: Continue current IV meropenem and IV meclizine. Discontinue Crestor in view of worsening liver enzymes. The case was discussed with the rapid response team. Surgical consult will be called for the need of central venous access placement. I did request forklift technician consultation from Dr. Draper to transfer the patient to the ICU. I will also request stat 12-lead EKG. I will also request stool occult blood. Christian Hebert MD [facility] # [id number]
--- NOTE | 2018-03-18 20:53 | PN ---
DATE: 03/18/2018 SUBJECTIVE: The patient was transferred to the ICU. Case was discussed with Dr. Draper and the certified surgical tech/first assistant team. The patient required femoral venous access and received IV fluid challenge. The patient is currently on dopamine and Levophed, 5 mcg each. No reported ventricular tachycardia. The patient was evaluated by the surgical team and the patient will undergo a CT angio of the abdomen to rule out ischemic bowel disease. The patient is a poor surgical candidate given his underlying coronary artery disease and endovascular intervention will be the preferred approach. Christian Hebert MD
[2018-03-18 21:02] LABS: CK-MB 73.3 ng/mL (0.0-3.38)
[2018-03-18 22:29] LABS: VENOUS BLOOD GAS PCO2 33 mmHg (40-60); VENOUS BLOOD GAS PO2 48 mm/Hg (30-55); VENOUS BLOOD PH 7.34 (7.32-7.43)
[2018-03-18 22:36] LABS: BASO % 0.3 % (0.0-2.0); EOS # 0.1 K/uL (0.0-0.7); EOS % 2.1 % (0.0-4.0); HEMOGLOBIN 15.4 g/dL (12.0-18.0); LYMPH # 0.2 K/uL (1.0-4.3); LYMPH % 8.5 % (20.0-40.0); MEAN CORPUSCULAR HEMOGLOBIN 28.6 pg (27.0-31.0); MEAN CORPUSCULAR HGB CONC 32.3 g/dL (33.0-37.0); MEAN PLATELET VOLUME 10.5 fL (7.2-11.7); MONO # 0.1 K/uL (0.0-0.8); MONO % 3.5 % (0.0-10.0); NEUT # 2.4 K/uL (1.8-7.0); NEUT % 85.6 % (50.0-75.0); NRBC % 0.2 % (0.0-2.0); PLATELET COUNT 152 K/uL (130-400); RED CELL DISTRIBUTION WIDTH 18.6 % (11.5-14.5)
[2018-03-18 22:39] LABS: WHITE BLOOD COUNT 2.8 K/uL (4.8-10.8)
[2018-03-18 22:40] LABS: MEAN CELL VOLUME 88.7 fL (80.0-94.0)
[2018-03-18 22:45] LABS: INR 1.9; PROTHROMBIN TIME 20.4 SECONDS (9.7-12.2)
[2018-03-18 22:57] LABS: BANDS 41 % (0-2); LYMPHOCYTE 24 % (20-40); MONOCYTE 6 % (0-10); NEUTROPHIL 29 % (50-75); TOTAL CELLS COUNTED 100
[2018-03-18 22:58] LABS: PLATELET ESTIMATE NORMAL (NORMAL)
[2018-03-18 23:00] LABS: CALCIUM 8.3 mg/dl (8.6-10.4)
[2018-03-18] MEDS: Dexmedetomidine 200 MCG in NS 0.9% 48 ML IV PRN (23:11)
[2018-03-18 23:44] LABS: BASO % 0.2 % (0.0-2.0); EOS % 0.7 % (0.0-4.0); HEMOGLOBIN 15.7 g/dL (12.0-18.0); LYMPH # 0.3 K/uL (1.0-4.3); LYMPH % 8.8 % (20.0-40.0); MEAN CELL VOLUME 88.4 fL (80.0-94.0); MEAN CORPUSCULAR HGB CONC 32.8 g/dL (33.0-37.0); MEAN PLATELET VOLUME 10.7 fL (7.2-11.7); MONO # 0.2 K/uL (0.0-0.8); MONO % 6.6 % (0.0-10.0); NEUT # 2.4 K/uL (1.8-7.0); NEUT % 83.7 % (50.0-75.0); NRBC % 0.8 % (0.0-2.0); RBC 5.43 Mil/uL (4.40-5.90); RED CELL DISTRIBUTION WIDTH 18.3 % (11.5-14.5); WHITE BLOOD COUNT 2.9 K/uL (4.8-10.8)
[2018-03-18] MEDS: Sodium Bicarbonate 8.4% 75 MEQ in Sodium Chloride 0.45% 925 ML IV SCH (23:52)
[2018-03-19 00:01] LABS: ALB/GLOB RATIO 1.4 (1.0-2.1); ALBUMIN 3.6 g/dL (3.5-5.0); CALCIUM 8.5 mg/dl (8.6-10.4)
[2018-03-19 00:15] LABS: TROPONIN I 38.7 ng/mL (0.00-0.120)
[2018-03-19] MEDS: Albuterol HFA 90 mcg/actuation (8 g) IH SCH (00:20)
--- NOTE | 2018-03-19 00:49 | PN ---
DATE: 03/18/2018 SUBJECTIVE: The patient was evaluated again in ICU after I was notified with troponin level of 14.1. The patient is still on dopamine and Levophed infusion. No reported ventricular arrhythmia. PHYSICAL EXAMINATION: VITAL SIGNS: Blood pressure 77/45, heart rate 100, temperature 99.1. HEENT: No pallor or icterus. CHEST: Clear. HEART: S1 and S2 regular. EXTREMITIES: No pedal edema. LABORATORY DATA: Most recent CBC, WBC 14.7, hemoglobin and hematocrit 17.1 and 57.9 respectively, platelet count 111,000. SMA-7, most recent one, sodium 137, potassium 4.2, chloride 89, CO2 less than 5, glucose 311, BUN 32, and creatinine 6.4. EKG reveals sinus rhythm at the rate of 92, bifascicular block, i.e., right bundle branch block with left anterior fascicular block. No acute ischemic changes necessitating code heart activation. ASSESSMENT AND PLAN: The case was discussed with surgeon Dr. Lanier and the patient is considered high risk candidate for any surgical intervention at this time given the acute non-ST elevation myocardial infarction. Intervention cardiology consult was called; however, from prior discussion with Dr. Ferrell who is very familiar with the patient and who performed cardiac catheterization, during a code heart in 10/2017 and no intervention was conducted because of the very poor anatomy then which is not expected to be any better this time. The case was also discussed with the patient's daughter, who is Marilyn at [phone]. It was explained to the daughter how grave the situation is and that Mr. Salmon is not a candidate for any surgical intervention at this time and also a high risk coronary intervention would not yield any significant benefits and the patient will be observed in the ICU on medical management. The patient is already started on intravenous heparin infusion in a therapeutic regimen for acute coronary syndrome as well as Plavix 75 mg daily. Christian Hebert MD
[2018-03-19] MEDS: Meropenem 500 MG in Sodium Chloride 0.9% 100 ML IVPB SCH ×2 (02:56→14:00)
[2018-03-19] MEDS ORDERED: DOPamine 400mg/250ml D5W 400 MG/250 ML BAG IV PRN (03:03)
[2018-03-19] MEDS: Sodium Bicarbonate 8.4% 75 MEQ in Sodium Chloride 0.45% 925 ML IV SCH (03:16)
[2018-03-19 05:36] LABS: ABG ALLEN TEST POS; ARTERIAL BLOOD GAS HCO3 23.9 mmol/L (21-28); ARTERIAL BLOOD GAS O2 SAT 95.1 % (95-98); ARTERIAL BLOOD GAS PCO2 35 mm/Hg (35-45); ARTERIAL BLOOD GAS PH 7.42 (7.35-7.45); ARTERIAL BLOOD GAS PO2 82 mm/Hg (80-100); ARTERIAL BLOOD GAS TCO2 23.8 mmol/L (22-28)
[2018-03-19] MEDS: Dexmedetomidine 200 MCG in NS 0.9% 48 ML IV PRN (05:36)
[2018-03-19 06:36] LABS: BASO % 0.2 % (0.0-2.0); EOS # 0.1 K/uL (0.0-0.7); EOS % 3.4 % (0.0-4.0); HEMOGLOBIN 14.6 g/dL (12.0-18.0); LYMPH # 0.3 K/uL (1.0-4.3); LYMPH % 8.6 % (20.0-40.0); MEAN CELL VOLUME 87.9 fL (80.0-94.0); MEAN CORPUSCULAR HEMOGLOBIN 29.3 pg (27.0-31.0); MEAN CORPUSCULAR HGB CONC 33.3 g/dL (33.0-37.0); MEAN PLATELET VOLUME 11.6 fL (7.2-11.7); MONO # 0.4 K/uL (0.0-0.8); MONO % 10.2 % (0.0-10.0); NEUT # 3.1 K/uL (1.8-7.0); NEUT % 77.6 % (50.0-75.0); NRBC % 0.8 % (0.0-2.0); PLATELET COUNT 130 K/uL (130-400); RBC 4.98 Mil/uL (4.40-5.90); RED CELL DISTRIBUTION WIDTH 18.2 % (11.5-14.5)
[2018-03-19 07:19] LABS: ALB/GLOB RATIO 1.1 (1.0-2.1); ALBUMIN 2.9 g/dL (3.5-5.0); CALCIUM 8.5 mg/dl (8.6-10.4)
[2018-03-19 08:18] LABS: BANDS 35 % (0-2); EOSINOPHIL 5 % (0-4); LYMPHOCYTE 9 % (20-40); METAMYELOCYTE 2 % (0-0); MONOCYTE 12 % (0-10); NEUTROPHIL 37 % (50-75); TOTAL CELLS COUNTED 100
[2018-03-19 08:19] LABS: PLATELET ESTIMATE NORMAL (NORMAL)
[2018-03-19 08:20] LABS: ANISOCYTOSIS SLIGHT; LARGE PLATELETS PRESENT; TOXIC GRANULATION PRESENT
[2018-03-19 08:21] LABS: GIANT PLATELETS PRESENT; HYPOCHROMIC SLIGHT; POIKILOCYTOSIS SLIGHT; POLYCHROMIC SLIGHT
[2018-03-19 08:22] LABS: OVALOCYTES SLIGHT
[2018-03-19] MEDS ORDERED: Sodium Chloride 0.9% 1,000 ML IV ONE (08:40)
[2018-03-19] MEDS: Multivitamin Vitamin B Complex (Nephro-Vite) Tab PO SCH (09:00)
[2018-03-19] MEDS ORDERED: Albumin Human 25% (12.5 gm/50 ml) IV ONE (09:26)
[2018-03-19] MEDS: Sodium Bicarbonate 8.4% 150 MEQ in Dextrose 5% In Water 1,000 ML IV SCH ×2 (09:30→16:30)
[2018-03-19] MEDS ORDERED: DOBUTamine 500mg/250ml D5W 500 MG/250 ML BAG IV SCH ×2 (09:30→15:45)
[2018-03-19] MEDS: Vasopressin 40 UNITS in Dextrose 5% In Water 38 ML IV SCH ×2 (09:40→18:15)
[2018-03-19] MEDS: Thiamine 100 mg/ml Inj IV SCH ×2 (09:45→17:40)
[2018-03-19] MEDS ORDERED: EPINEPHrine 1 mg/ml (1:1000) Inj IV ONE ×2 (09:57→10:07)
[2018-03-19] MEDS ORDERED: DEXTROSE 5% IV ONE (10:06)
[2018-03-19] MEDS ORDERED: WATER IV ONE (10:06)
[2018-03-19] MEDS ORDERED: EPINEPHRINE IV ONE (10:06)
--- NOTE | 2018-03-19 10:09 | PCM.PROC ---
Procedures Attestation:: I certify that I have explained the specified Operation(s) or Procedure(s), risks, benefits and reasonable alternatives to the Patient and/or other person responsible. The opportunity was given to ask questions and all questions answered - Arterial Line Right Radial Aseptic technique was employed throughout the procedure: Full sterile barriers (mask, hair cover, sterile gown, sterile gloves), Chloraprep Antiseptic: 30 second prep for IJ or SC sites Time Out Performed: Yes Pt. placed on Pulse Ox Monitor: Yes Central Line Prep: Chlorhexidine-Alcohol Combination Ultrasound Used for Placement: No Gauge (Size): 20 gauge Technique Used: Direct Puncture Technique Secured by: Suture Post procedure dressing: Gauze, Clear vapor permeable, Chlorhexidine disc (Biopatch) Patient Tolerated Procedure: well Immediate Complications: none
[2018-03-19] MEDS: EPINEPHrine- 1 MG in Sodium Chloride 0.9% 250 ML IV PRN ×4 (10:15→14:15)
--- NOTE | 2018-03-19 10:16 | CP.PCM.PN ---
<Samina Younger P - Last Filed: 03/19/18 10:27> Subjective - Date & Time of Evaluation Date of Evaluation: 03/19/18 Time of Evaluation: 09:50 - Subjective Subjective: House doctor Code Blue note Code Blue called for patient at 9:50AM after patient was discovered to be in PEA. Initial vital signs: Temp 102.8, HR 55, BP 62/29. ACLS protocol was initiated. Compressions were started. Patient received calcium chloride, bicarb, and 1L normal saline. ROSC was achieved at 9:54, strong femoral pulse palpated. Arterial line was placed by Dr. Chelita Lanier. Epinepherine drip was ordered. Final vitals: Temp 102.8, 137/86 (A-line), HR 104, SpO2 95% on ventilator (volume 0.5, Rate 20, PEEP 5, FiO2 50%). Objective - Vital Signs/Intake and Output Vital Signs (last 24 hours): Temp Pulse Resp BP Pulse Ox 102.8 F H 109 H 24 86/47 L 95 03/19/18 04:00 03/19/18 06:47 03/19/18 06:47 03/19/18 06:47 03/19/18 06:47 Intake and Output: 03/19/18 03/19/18 06:59 18:59 Intake Total 3715.73 Output Total 100 Balance 3615.73 - Medications Medications: Current Medications Clopidogrel Bisulfate (Plavix) 75 mg PO DAILY NIKIA Dextrose (Dextrose 50% Inj) 0 ml IV STAT PRN; Protocol PRN Reason: Hypoglycemia Protocol Dextrose (Glutose 15) 0 gm PO ONCE PRN; Protocol PRN Reason: Hypoglycemia Protocol Glucagon (Glucagen Diagnostic Kit) 0 mg IM STAT PRN; Protocol PRN Reason: Hypoglycemia Protocol Hydrocortisone Sodium Succinate (Solu-Cortef) 100 mg IV Q8H NIKIA Meropenem 500 mg/ Sodium (Chloride) 100 mls @ 100 mls/hr IVPB Q12H NIKIA; Protocol Last Admin: 03/19/18 02:56 Dose: 100 mls/hr Norepinephrine Bitartrate 4 mg (/ Dextrose) 254 mls @ 15.24 mls/hr IV .[id number] PRN; Protocol PRN Reason: TITRATE PER MD ORDER Last Admin: 03/19/18 06:47 Dose: 11 mcg/min, 41.91 mls/hr Vancomycin HCl 500 mg/ Sodium (Chloride) 100 mls @ 100 mls/hr IVPB MWF NIKIA; Protocol Dextrose (Dextrose 5% In Water 1000 Ml) 1,000 mls @ 0 mls/hr IV .Q0M PRN; Protocol PRN Reason: Hypoglycemia Protocol Dexmedetomidine HCl 200 mcg/ (Sodium Chloride) 50 mls @ 3.52 mls/hr IV TITR PRN; Protocol Last Titration: 03/19/18 06:00 Dose: 0.91 mcg/kg/hr, 16 mls/hr Vasopressin 40 units/ Dextrose 40 mls @ 2.4 mls/hr IV .[id number] NIKIA Sodium Bicarbonate 150 meq/ (Dextrose) 1,150 mls @ 75 mls/hr IV .[id number] NIKIA Dobutamine HCl/Dextrose (Dobutamine/Dextrose 5% 500mg/250ml) 500 mg in 250 mls @ 5.4 mls/hr IV .Q24H NIKIA; Protocol Epinephrine HCl 1 mg/ Sodium (Chloride) 251 mls @ 15.06 mls/hr IV .[id number] PRN; Protocol PRN Reason: TITRATE PER MD ORDER Epinephrine HCl 1 mg/ Dextrose 251 mls @ 60.24 mls/hr IV .Q4H10M ONE; Protocol Stop: 03/19/18 14:15 Midodrine (Proamatine) 5 mg PO TID NIKIA Ondansetron HCl (Zofran Inj) 4 mg IVP Q8 PRN PRN Reason: Nausea/Vomiting Last Admin: 03/17/18 23:43 Dose: 4 mg Pantoprazole Sodium (Protonix Inj) 40 mg IVP Q12H NIKIA Rosuvastatin Calcium (Crestor) 5 mg PO HS NIKIA Last Admin: 03/17/18 22:23 Dose: 5 mg Sevelamer Carbonate (Renvela) 800 mg PO TID NIKIA Last Admin: 03/18/18 18:00 Dose: Not Given Thiamine HCl (Vitamin B1 Inj) 200 mg IV Q8H [facility] Vitamin B Complex/Vit C/Folic Acid (Nephro-Benjamin) 1 tab PO 0800 NIKIA Last Admin: 03/18/18 07:40 Dose: 1 tab - Labs Labs: 03/19/18 06:23 03/19/18 06:23 PT 20.4 SECONDS (9.7-12.2) H 03/18/18 22:33 INR 1.9 03/18/18 22:33 APTT 41 SECONDS (21-34) H D 03/18/18 22:33 - Constitutional Appears: Chronically Ill - Head Exam Head Exam: ATRAUMATIC, NORMOCEPHALIC - Eye Exam Eye Exam: absent: EOMI Additional comments: Miosis bilaterally, minimally reactive to light - ENT Exam Additional comments: Intubated - Respiratory Exam Respiratory Exam: Clear to Ausculation Bilateral, Rhonchi (minimal, diffuse). absent: Rales, Wheezes - Cardiovascular Exam Cardiovascular Exam: Tachycardia, REGULAR RHYTHM, +S1, +S2 - GI/Abdominal Exam GI & Abdominal Exam: Soft. absent: Distended, Tenderness - Extremities Exam Extremities Exam: absent: Joint Swelling, Tenderness Additional comments: L AV fistula with palpable thrill - Neurological Exam Neurological Exam: absent: Alert, Awake, Oriented x3 Additional comments: Non-responsive, not following commands, not responsive to painful stimulation. - Psychiatric Exam Psychiatric exam: absent: Normal Affect, Normal Mood - Skin Skin Exam: Dry, Normal Color <Lanier,[place] M - Last Filed: 03/19/18 15:16> Objective - Vital Signs/Intake and Output Vital Signs (last 24 hours): Temp Pulse Resp BP Pulse Ox 102.8 F H 109 H 24 86/47 L 95 03/19/18 04:00 03/19/18 06:47 03/19/18 06:47 03/19/18 06:47 03/19/18 06:47 Intake and Output: 03/19/18 03/19/18 06:59 18:59 Intake Total 3715.73 Output Total 100 Balance 3615.73 - Medications Medications: Current Medications Clopidogrel Bisulfate (Plavix) 75 mg PO DAILY [facility] Dextrose (Dextrose 50% Inj) 0 ml IV STAT PRN; Protocol PRN Reason: Hypoglycemia Protocol Dextrose (Glutose 15) 0 gm PO ONCE PRN; Protocol PRN Reason: Hypoglycemia Protocol Epinephrine HCl (Epinephrine) 1 mg IV ONCE ONE Stop: 03/19/18 09:58 Epinephrine HCl (Epinephrine) 1 mg IV ONCE ONE Stop: 03/19/18 10:08 Glucagon (Glucagen Diagnostic Kit) 0 mg IM STAT PRN; Protocol PRN Reason: Hypoglycemia Protocol Hydrocortisone Sodium Succinate (Solu-Cortef) 100 mg IV Q8H [facility] Meropenem 500 mg/ Sodium (Chloride) 100 mls @ 100 mls/hr IVPB Q12H NIKIA; Protocol Last Admin: 03/19/18 02:56 Dose: 100 mls/hr Norepinephrine Bitartrate 4 mg (/ Dextrose) 254 mls @ 15.24 mls/hr IV .[id number] PRN; Protocol PRN Reason: TITRATE PER MD ORDER Last Admin: 03/19/18 06:47 Dose: 11 mcg/min, 41.91 mls/hr Vancomycin HCl 500 mg/ Sodium (Chloride) 100 mls @ 100 mls/hr IVPB MWF NIKIA; Protocol Dextrose (Dextrose 5% In Water 1000 Ml) 1,000 mls @ 0 mls/hr IV .Q0M PRN; Protocol PRN Reason: Hypoglycemia Protocol Dexmedetomidine HCl 200 mcg/ (Sodium Chloride) 50 mls @ 3.52 mls/hr IV TITR PRN; Protocol Last Titration: 03/19/18 06:00 Dose: 0.91 mcg/kg/hr, 16 mls/hr Vasopressin 40 units/ Dextrose 40 mls @ 2.4 mls/hr IV .[id number] NIKIA Sodium Bicarbonate 150 meq/ (Dextrose) 1,150 mls @ 75 mls/hr IV .[id number] NIKIA Dobutamine HCl/Dextrose (Dobutamine/Dextrose 5% 500mg/250ml) 500 mg in 250 mls @ 5.4 mls/hr IV .Q24H NIKIA; Protocol Epinephrine HCl 1 mg/ Sodium (Chloride) 251 mls @ 15.06 mls/hr IV .[id number] PRN; Protocol PRN Reason: TITRATE PER MD ORDER Epinephrine HCl 1 mg/ Dextrose 251 mls @ 60.24 mls/hr IV .Q4H10M ONE; Protocol Stop: 03/19/18 14:15 Midodrine (Proamatine) 5 mg PO TID NIKIA Ondansetron HCl (Zofran Inj) 4 mg IVP Q8 PRN PRN Reason: Nausea/Vomiting Last Admin: 03/17/18 23:43 Dose: 4 mg Pantoprazole Sodium (Protonix Inj) 40 mg IVP Q12H NIKIA Rosuvastatin Calcium (Crestor) 5 mg PO HS NIKIA Last Admin: 03/17/18 22:23 Dose: 5 mg Sevelamer Carbonate (Renvela) 800 mg PO TID [facility] Last Admin: 03/18/18 18:00 Dose: Not Given Thiamine HCl (Vitamin B1 Inj) 200 mg IV Q8H [facility] Vitamin B Complex/Vit C/Folic Acid (Nephro-Benjamin) 1 tab PO 0800 [facility] Last Admin: 03/18/18 07:40 Dose: 1 tab - Labs Labs: 03/19/18 06:23 03/19/18 06:23 PT 20.4 SECONDS (9.7-12.2) H 03/18/18 22:33 INR 1.9 03/18/18 22:33 APTT 41 SECONDS (21-34) H D 03/18/18 22:33
[2018-03-19 10:32] LABS: ARTERIAL BLOOD GAS HCO3 15.2 mmol/L (21-28); ARTERIAL BLOOD GAS O2 SAT 97.1 % (95-98); ARTERIAL BLOOD GAS PCO2 36 mm/Hg (35-45); ARTERIAL BLOOD GAS PH 7.21 (7.35-7.45); ARTERIAL BLOOD GAS PO2 256 mm/Hg (80-100); ARTERIAL BLOOD GAS TCO2 15.5 mmol/L (22-28)
--- NOTE | 2018-03-19 11:21 | CP.CCUPN ---
CCU Subjective - Physician Review Subjective (Free Text): Patient seen and examined during rounds. Patient on max norepi and dopamine. Patient had cardiac arrest during rounds. Patient is not responsive, pupils not reactive, limited ROS 2nd intubation. Daughter John at bedside, informed of poor prognosis 03/19/18 11:17 Critical Care Time Spent (in minutes): 55 CCU Objective - Vital Signs / Intake & Output Intake and Output (Last 8hrs): Intake & Output 03/18/18 03/19/18 03/19/18 22:59 06:59 14:59 Intake Total 2484.3 3109.33 Output Total 700 100 Balance 1784.3 3009.33 Weight 155 lb 158 lb 11.725 oz Intake: IV 0 304 Intake, IV Amount 2484.3 2805.33 Distal Port 106.8 143.83 Distal Port Femoral 525 2150 Left External Jugular 1500 PB prox. port 203.4 303.8 Proximal Port Femoral 149.1 207.7 Output: Gastric Amount 700 100 Nares 700 100 Urine 0 0 Urine, Voided 0 0 Stool 0 0 - Physical Exam Head: Positive for: Atraumatic, Normocephalic Pupils: Positive for: Non-Reactive Neck: Positive for: Normal Range of Motion Respiratory/Chest: Positive for: Good Air Exchange, Rales, Rhonchi. Negative for: Wheezes, Decreased Breath Sounds Cardiovascular: Positive for: Murmurs, Tachycardic Abdomen: Positive for: Distention. Negative for: Tenderness, Normal Bowel Sounds, Peritoneal Signs, Guarding Neurological: Negative for: GCS=15, CN II-XII Intact, Speech Normal Skin: Positive for: Warm, Dry Psychiatric: Negative for: Alert, Oriented x 3 - Medications Active Medications: Active Medications Generic Name Dose Route Start Last Admin Trade Name Freq PRN Reason Stop Dose Admin Clopidogrel Bisulfate 75 mg 03/19/18 10:00 Plavix PO DAILY NIKIA Dextrose 0 ml 03/18/18 18:45 Dextrose 50% Inj IV STAT PRN Hypoglycemia Protocol Protocol Dextrose 0 gm 03/18/18 18:45 Glutose 15 PO ONCE PRN Hypoglycemia Protocol Protocol Epinephrine HCl 1 mg 03/19/18 09:57 Epinephrine IV 03/19/18 09:58 ONCE ONE Epinephrine HCl 1 mg 03/19/18 10:07 Epinephrine IV 03/19/18 10:08 ONCE ONE Glucagon 0 mg 03/18/18 18:45 Glucagen Diagnostic Kit IM STAT PRN Hypoglycemia Protocol Protocol Hydrocortisone Sodium Succinate 100 mg 03/19/18 18:00 Solu-Cortef IV Q8H NIKIA Meropenem 500 mg/ Sodium 100 mls @ 100 mls/hr 03/18/18 14:00 03/19/18 02:56 Chloride IVPB 100 mls/hr Q12H NIKIA Administration Protocol Norepinephrine Bitartrate 4 mg 254 mls @ 15.24 mls/hr 03/18/18 16:03 03/19/18 06:47 / Dextrose IV 11 mcg/min .[id number] PRN 41.91 mls/hr TITRATE PER MD ORDER Administration Protocol 4 MCG/MIN Vancomycin HCl 500 mg/ Sodium 100 mls @ 100 mls/hr 03/20/18 09:00 Chloride IVPB MWF NIKIA Protocol Dextrose 1,000 mls @ 0 mls/hr 03/18/18 18:45 Dextrose 5% In Water 1000 Ml IV .Q0M PRN Hypoglycemia Protocol Protocol Per Protocol Dexmedetomidine HCl 200 mcg/ 50 mls @ 3.52 mls/hr 03/18/18 18:59 03/19/18 06:00 Sodium Chloride IV 0.91 mcg/kg/hr TITR PRN 16 mls/hr Titration Protocol 0.2 MCG/KG/HR Vasopressin 40 units/ Dextrose 40 mls @ 2.4 mls/hr 03/19/18 09:30 IV .[id number] NIKIA 0.04 UNITS/MIN Sodium Bicarbonate 150 meq/ 1,150 mls @ 75 mls/hr 03/19/18 09:30 Dextrose IV .[id number] NIKIA Dobutamine HCl/Dextrose 500 mg in 250 mls @ 5.4 mls/hr 03/19/18 09:30 Dobutamine/Dextrose 5% 500mg/250ml IV .Q24H NIKIA Protocol 2.5 MCG/KG/MIN Epinephrine HCl 1 mg/ Sodium 251 mls @ 15.06 mls/hr 03/19/18 10:04 Chloride IV .[id number] PRN TITRATE PER MD ORDER Protocol 1 MCG/MIN Epinephrine HCl 1 mg/ Dextrose 251 mls @ 60.24 mls/hr 03/19/18 10:06 IV 03/19/18 14:15 .[id number] ONE Protocol 4 MCG/MIN Midodrine 5 mg 03/19/18 10:00 Proamatine PO TID [facility] Ondansetron HCl 4 mg 03/16/18 09:00 03/17/18 23:43 Zofran Inj IVP 4 mg Q8 PRN Administration Nausea/Vomiting Pantoprazole Sodium 40 mg 03/19/18 09:30 Protonix Inj IVP Q12H [facility] Rosuvastatin Calcium 5 mg 03/15/18 23:00 03/17/18 22:23 Crestor PO 5 mg HS NIKIA Administration Sevelamer Carbonate 800 mg 03/16/18 10:00 03/18/18 18:00 Renvela PO Not Given TID [facility] Thiamine HCl 200 mg 03/19/18 09:30 Vitamin B1 Inj IV Q8H [facility] Vitamin B Complex/Vit C/Folic Acid 1 tab 03/17/18 08:00 03/18/18 07:40 Nephro-Benjamin PO 1 tab 0800 NIKIA Administration - Patient Studies Lab Studies: Microbiology Studies 03/17/18 13:30 Blood Culture - Preliminary Blood-During Dialysis NO GROWTH AFTER 24 HOURS 03/17/18 13:30 Blood Culture - Preliminary Blood-During Dialysis NO GROWTH AFTER 24 HOURS Lab Studies 03/19/18 03/19/18 03/19/18 Range/Units 10:28 06:31 06:23 WBC (4.8-10.8) K/uL RBC (4.40-5.90) Mil/uL Hgb (12.0-18.0) g/dL Hct (35.0-51.0) % MCV (80.0-94.0) fL MCH (27.0-31.0) pg MCHC (33.0-37.0) g/dL RDW (11.5-14.5) % Plt Count (130-400) K/uL MPV (7.2-11.7) fL Neut % (Auto) (50.0-75.0) % Lymph % (Auto) (20.0-40.0) % Sevier % (Auto) (0.0-10.0) % Eos % (Auto) (0.0-4.0) % Baso % (Auto) (0.0-2.0) % Neut # (Auto) (1.8-7.0) K/uL Lymph # (Auto) (1.0-4.3) K/uL Sevier # (Auto) (0.0-0.8) K/uL Eos # (Auto) (0.0-0.7) K/uL Baso # (Auto) (0.0-0.2) K/uL Neutrophils % (Manual) (50-75) % Band Neutrophils % (0-2) % Lymphocytes % (Manual) (20-40) % Monocytes % (Manual) (0-10) % Eosinophils % (Manual) (0-4) % Basophils % (Manual) (0-2) % Metamyelocytes % (0-0) % Toxic Granulation Platelet Estimate (NORMAL) Large Platelets Giant Platelets Polychromasia Hypochromasia (manual) Poikilocytosis (manual Anisocytosis (manual) Ovalocytes PT (9.7-12.2) SECONDS INR APTT (21-34) SECONDS Puncture Site A-line pCO2 36 (35-45) mm/Hg pO2 256 H (80-100) mm/Hg HCO3 15.2 L (21-28) mmol/L ABG pH 7.21 L (7.35-7.45) ABG Total CO2 15.5 L (22-28) mmol/L ABG O2 Saturation 97.1 (95-98) % ABG Base Excess -12.6 L (-2.0-3.0) mmol/L Vern Test Na ABG Potassium 3.4 L (3.6-5.2) mmol/L VBG pH (7.32-7.43) VBG pCO2 (40-60) mmHg VBG HCO3 mmol/L VBG Total CO2 (22-28) mmol/L VBG O2 Sat (Calc) (40-65) % VBG Base Excess (0.0-2.0) mmol/L VBG Potassium (3.6-5.2) mmol/L A-a O2 Difference 412.0 mm/Hg Respiratory Index 1.6 Glucose 30 L* D (75-110) mg/dl Lactate 12.0 H* (0.7-2.1) mmol/L Vent Mode Mechanical Rate 20 FiO2 100.0 % Tidal Volume 500 PEEP 5 Inspiratory BiPAP Expiratory BiPAP Crit Value Called To Dr eric bardales Crit Value Called By Ashutosh zhao [facility] Crit Value Read Back Y Blood Gas Notified Time 1035 Sodium 139.0 135 (132-148) mmol/L Potassium 3.5 L (3.6-5.2) mmol/L Chloride 102.0 88 L (98-107) mmol/L Carbon Dioxide 26 (22-30) mmol/L Anion Gap 24 H (10-20) BUN 58 H (9-20) mg/dL Creatinine 5.9 H (0.8-1.5) mg/dL Est GFR ( Amer) 12 Est GFR (Non-Af Amer) 10 POC Glucose (mg/dL) 82 (65-110) mg/dL Random Glucose 79 D (75-110) mg/dL Calcium 8.5 L (8.6-10.4) mg/dl Phosphorus 3.8 (2.5-4.5) mg/dL Magnesium 2.1 (1.6-2.3) mg/dL Total Bilirubin 0.9 (0.2-1.3) mg/dL Direct Bilirubin (0.0-0.4) mg/dL AST 7020 H (17-59) U/L ALT 4245 H (21-72) U/L Alkaline Phosphatase 247 H (38-126) U/L Ammonia (9-33) umol/L Lactate Dehydrogenase (313-618) U/L Total Creatine Kinase (55-170) U/L CK-MB (Mass) (0.0-3.38) ng/mL Troponin I (0.00-0.120) ng/mL Total Protein 5.5 L (6.3-8.3) g/dL Albumin 2.9 L (3.5-5.0) g/dL Globulin 2.6 (2.2-3.9) gm/dL Albumin/Globulin Ratio 1.1 (1.0-2.1) Amylase (30-110) U/L Lipase (23-300) U/L Alpha Fetoprotein (0.0-7.5) ng/mL Carcinoembryonic Ag (0-3.0) ng/mL CA 19-9 Antigen (0-37) U/mL Arterial Blood Potassium 3.4 L (3.6-5.2) mmol/L Venous Blood Potassium (3.6-5.2) mmol/L Random Vancomycin ug/mL 03/19/18 03/19/18 03/19/18 Range/Units 06:23 05:27 01:17 WBC 4.0 L (4.8-10.8) K/uL RBC 4.98 (4.40-5.90) Mil/uL Hgb 14.6 (12.0-18.0) g/dL Hct 43.8 (35.0-51.0) % MCV 87.9 (80.0-94.0) fL MCH 29.3 (27.0-31.0) pg MCHC 33.3 (33.0-37.0) g/dL RDW 18.2 H (11.5-14.5) % Plt Count 130 (130-400) K/uL MPV 11.6 (7.2-11.7) fL Neut % (Auto) 77.6 H (50.0-75.0) % Lymph % (Auto) 8.6 L (20.0-40.0) % Sevier % (Auto) 10.2 H (0.0-10.0) % Eos % (Auto) 3.4 (0.0-4.0) % Baso % (Auto) 0.2 (0.0-2.0) % Neut # (Auto) 3.1 (1.8-7.0) K/uL Lymph # (Auto) 0.3 L (1.0-4.3) K/uL Sevier # (Auto) 0.4 (0.0-0.8) K/uL Eos # (Auto) 0.1 (0.0-0.7) K/uL Baso # (Auto) 0.0 (0.0-0.2) K/uL Neutrophils % (Manual) 37 L (50-75) % Band Neutrophils % 35 H* (0-2) % Lymphocytes % (Manual) 9 L (20-40) % Monocytes % (Manual) 12 H (0-10) % Eosinophils % (Manual) 5 H (0-4) % Basophils % (Manual) (0-2) % Metamyelocytes % 2 H (0-0) % Toxic Granulation Present Platelet Estimate Normal (NORMAL) Large Platelets Present Giant Platelets Present Polychromasia Slight Hypochromasia (manual) Slight Poikilocytosis (manual Slight Anisocytosis (manual) Slight Ovalocytes Slight PT (9.7-12.2) SECONDS INR APTT (21-34) SECONDS Puncture Site Rr pCO2 35 (35-45) mm/Hg pO2 82 (80-100) mm/Hg HCO3 23.9 (21-28) mmol/L ABG pH 7.42 (7.35-7.45) ABG Total CO2 23.8 (22-28) mmol/L ABG O2 Saturation 95.1 (95-98) % ABG Base Excess -1.3 (-2.0-3.0) mmol/L Vern Test Pos ABG Potassium 3.7 (3.6-5.2) mmol/L VBG pH (7.32-7.43) VBG pCO2 (40-60) mmHg VBG HCO3 mmol/L VBG Total CO2 (22-28) mmol/L VBG O2 Sat (Calc) (40-65) % VBG Base Excess (0.0-2.0) mmol/L VBG Potassium (3.6-5.2) mmol/L A-a O2 Difference 231.0 mm/Hg Respiratory Index 2.8 Glucose 59 L (75-110) mg/dl Lactate 9.4 H* (0.7-2.1) mmol/L Vent Mode Prvc Mechanical Rate 20 FiO2 50.0 % Tidal Volume 500 PEEP 5 Inspiratory BiPAP Expiratory BiPAP Crit Value Called To Barbi rn Crit Value Called By Jess functional tester typewriters Crit Value Read Back Y Blood Gas Notified Time 536 Sodium 136.0 (132-148) mmol/L Potassium (3.6-5.2) mmol/L Chloride 95.0 L (98-107) mmol/L Carbon Dioxide (22-30) mmol/L Anion Gap (10-20) BUN (9-20) mg/dL Creatinine (0.8-1.5) mg/dL Est GFR ( Amer) Est GFR (Non-Af Amer) POC Glucose (mg/dL) 258 H (65-110) mg/dL Random Glucose (75-110) mg/dL Calcium (8.6-10.4) mg/dl Phosphorus (2.5-4.5) mg/dL Magnesium (1.6-2.3) mg/dL Total Bilirubin (0.2-1.3) mg/dL Direct Bilirubin (0.0-0.4) mg/dL AST (17-59) U/L ALT (21-72) U/L Alkaline Phosphatase (38-126) U/L Ammonia (9-33) umol/L Lactate Dehydrogenase (313-618) U/L Total Creatine Kinase (55-170) U/L CK-MB (Mass) (0.0-3.38) ng/mL Troponin I (0.00-0.120) ng/mL Total Protein (6.3-8.3) g/dL Albumin (3.5-5.0) g/dL Globulin (2.2-3.9) gm/dL Albumin/Globulin Ratio (1.0-2.1) Amylase (30-110) U/L Lipase (23-300) U/L Alpha Fetoprotein (0.0-7.5) ng/mL Carcinoembryonic Ag (0-3.0) ng/mL CA 19-9 Antigen (0-37) U/mL Arterial Blood Potassium 3.7 (3.6-5.2) mmol/L Venous Blood Potassium (3.6-5.2) mmol/L Random Vancomycin ug/mL 03/18/18 03/18/18 03/18/18 Range/Units 23:38 23:38 22:33 WBC 2.9 L (4.8-10.8) K/uL RBC 5.43 (4.40-5.90) Mil/uL Hgb 15.7 (12.0-18.0) g/dL Hct 48.0 (35.0-51.0) % MCV 88.4 (80.0-94.0) fL MCH 29.0 (27.0-31.0) pg MCHC 32.8 L (33.0-37.0) g/dL RDW 18.3 H (11.5-14.5) % Plt Count 134 (130-400) K/uL MPV 10.7 (7.2-11.7) fL Neut % (Auto) 83.7 H (50.0-75.0) % Lymph % (Auto) 8.8 L (20.0-40.0) % Sevier % (Auto) 6.6 (0.0-10.0) % Eos % (Auto) 0.7 (0.0-4.0) % Baso % (Auto) 0.2 (0.0-2.0) % Neut # (Auto) 2.4 (1.8-7.0) K/uL Lymph # (Auto) 0.3 L (1.0-4.3) K/uL Sevier # (Auto) 0.2 (0.0-0.8) K/uL Eos # (Auto) 0.0 (0.0-0.7) K/uL Baso # (Auto) 0.0 (0.0-0.2) K/uL Neutrophils % (Manual) (50-75) % Band Neutrophils % (0-2) % Lymphocytes % (Manual) (20-40) % Monocytes % (Manual) (0-10) % Eosinophils % (Manual) (0-4) % Basophils % (Manual) (0-2) % Metamyelocytes % (0-0) % Toxic Granulation Platelet Estimate (NORMAL) Large Platelets Giant Platelets Polychromasia Hypochromasia (manual) Poikilocytosis (manual Anisocytosis (manual) Ovalocytes PT 20.4 H (9.7-12.2) SECONDS INR 1.9 APTT 41 H D (21-34) SECONDS Puncture Site pCO2 (35-45) mm/Hg pO2 (80-100) mm/Hg HCO3 (21-28) mmol/L ABG pH (7.35-7.45) ABG Total CO2 (22-28) mmol/L ABG O2 Saturation (95-98) % ABG Base Excess (-2.0-3.0) mmol/L Vern Test ABG Potassium (3.6-5.2) mmol/L VBG pH (7.32-7.43) VBG pCO2 (40-60) mmHg VBG HCO3 mmol/L VBG Total CO2 (22-28) mmol/L VBG O2 Sat (Calc) (40-65) % VBG Base Excess (0.0-2.0) mmol/L VBG Potassium (3.6-5.2) mmol/L A-a O2 Difference mm/Hg Respiratory Index Glucose (75-110) mg/dl Lactate (0.7-2.1) mmol/L Vent Mode Mechanical Rate FiO2 % Tidal Volume PEEP Inspiratory BiPAP Expiratory BiPAP Crit Value Called To Crit Value Called By Crit Value Read Back Blood Gas Notified Time Sodium 137 (132-148) mmol/L Potassium 3.9 (3.6-5.2) mmol/L Chloride 91 L (98-107) mmol/L Carbon Dioxide 25 (22-30) mmol/L Anion Gap 26 H (10-20) BUN 52 H (9-20) mg/dL Creatinine 5.6 H (0.8-1.5) mg/dL Est GFR ( Amer) 12 Est GFR (Non-Af Amer) 10 POC Glucose (mg/dL) (65-110) mg/dL Random Glucose 232 H (75-110) mg/dL Calcium 8.5 L (8.6-10.4) mg/dl Phosphorus (2.5-4.5) mg/dL Magnesium (1.6-2.3) mg/dL Total Bilirubin 1.0 (0.2-1.3) mg/dL Direct Bilirubin 1.0 H (0.0-0.4) mg/dL AST 9529 H (17-59) U/L ALT 4909 H (21-72) U/L Alkaline Phosphatase 239 H (38-126) U/L Ammonia (9-33) umol/L Lactate Dehydrogenase (313-618) U/L Total Creatine Kinase 6926 H (55-170) U/L CK-MB (Mass) 121 H (0.0-3.38) ng/mL Troponin I 38.7000 H* (0.00-0.120) ng/mL Total Protein 6.3 (6.3-8.3) g/dL Albumin 3.6 (3.5-5.0) g/dL Globulin 2.7 (2.2-3.9) gm/dL Albumin/Globulin Ratio 1.4 (1.0-2.1) Amylase (30-110) U/L Lipase (23-300) U/L Alpha Fetoprotein (0.0-7.5) ng/mL Carcinoembryonic Ag (0-3.0) ng/mL CA 19-9 Antigen (0-37) U/mL Arterial Blood Potassium (3.6-5.2) mmol/L Venous Blood Potassium (3.6-5.2) mmol/L Random Vancomycin ug/mL 03/18/18 03/18/18 03/18/18 Range/Units 22:33 22:33 22:24 WBC 2.8 L D (4.8-10.8) K/uL RBC 5.40 (4.40-5.90) Mil/uL Hgb 15.4 (12.0-18.0) g/dL Hct 47.9 (35.0-51.0) % MCV 88.7 D (80.0-94.0) fL MCH 28.6 (27.0-31.0) pg MCHC 32.3 L (33.0-37.0) g/dL RDW 18.6 H (11.5-14.5) % Plt Count 152 (130-400) K/uL MPV 10.5 (7.2-11.7) fL Neut % (Auto) 85.6 H (50.0-75.0) % Lymph % (Auto) 8.5 L (20.0-40.0) % Sevier % (Auto) 3.5 (0.0-10.0) % Eos % (Auto) 2.1 (0.0-4.0) % Baso % (Auto) 0.3 (0.0-2.0) % Neut # (Auto) 2.4 (1.8-7.0) K/uL Lymph # (Auto) 0.2 L (1.0-4.3) K/uL Sevier # (Auto) 0.1 (0.0-0.8) K/uL Eos # (Auto) 0.1 (0.0-0.7) K/uL Baso # (Auto) 0.0 (0.0-0.2) K/uL Neutrophils % (Manual) 29 L (50-75) % Band Neutrophils % 41 H* (0-2) % Lymphocytes % (Manual) 24 (20-40) % Monocytes % (Manual) 6 (0-10) % Eosinophils % (Manual) (0-4) % Basophils % (Manual) (0-2) % Metamyelocytes % (0-0) % Toxic Granulation Platelet Estimate Normal (NORMAL) Large Platelets Giant Platelets Polychromasia Hypochromasia (manual) Poikilocytosis (manual Anisocytosis (manual) Ovalocytes PT (9.7-12.2) SECONDS INR APTT (21-34) SECONDS Puncture Site pCO2 (35-45) mm/Hg pO2 48 (80-100) mm/Hg HCO3 (21-28) mmol/L ABG pH (7.35-7.45) ABG Total CO2 (22-28) mmol/L ABG O2 Saturation (95-98) % ABG Base Excess (-2.0-3.0) mmol/L Vern Test ABG Potassium (3.6-5.2) mmol/L VBG pH 7.34 (7.32-7.43) VBG pCO2 33 L (40-60) mmHg VBG HCO3 19.0 mmol/L VBG Total CO2 18.8 L (22-28) mmol/L VBG O2 Sat (Calc) 84.7 H (40-65) % VBG Base Excess -7.0 L (0.0-2.0) mmol/L VBG Potassium 3.2 L (3.6-5.2) mmol/L A-a O2 Difference mm/Hg Respiratory Index Glucose 218 H (75-110) mg/dl Lactate 9.2 H* (0.7-2.1) mmol/L Vent Mode Mechanical Rate FiO2 % Tidal Volume PEEP Inspiratory BiPAP Expiratory BiPAP 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 Crit Value Called By [facility] Crit Value Read Back Y Blood Gas Notified Time 2227 Sodium 135 138.0 (132-148) mmol/L Potassium 3.9 (3.6-5.2) mmol/L Chloride 88 L 100.0 (98-107) mmol/L Carbon Dioxide 25 (22-30) mmol/L Anion Gap 26 H (10-20) BUN 51 H (9-20) mg/dL Creatinine 5.7 H (0.8-1.5) mg/dL Est GFR ( Amer) 12 Est GFR (Non-Af Amer) 10 POC Glucose (mg/dL) (65-110) mg/dL Random Glucose 260 H (75-110) mg/dL Calcium 8.3 L (8.6-10.4) mg/dl Phosphorus (2.5-4.5) mg/dL Magnesium (1.6-2.3) mg/dL Total Bilirubin (0.2-1.3) mg/dL Direct Bilirubin (0.0-0.4) mg/dL AST (17-59) U/L ALT (21-72) U/L Alkaline Phosphatase (38-126) U/L Ammonia (9-33) umol/L Lactate Dehydrogenase (313-618) U/L Total Creatine Kinase 5946 H (55-170) U/L CK-MB (Mass) 115 H (0.0-3.38) ng/mL Troponin I (0.00-0.120) ng/mL Total Protein (6.3-8.3) g/dL Albumin (3.5-5.0) g/dL Globulin (2.2-3.9) gm/dL Albumin/Globulin Ratio (1.0-2.1) Amylase (30-110) U/L Lipase (23-300) U/L Alpha Fetoprotein (0.0-7.5) ng/mL Carcinoembryonic Ag (0-3.0) ng/mL CA 19-9 Antigen (0-37) U/mL Arterial Blood Potassium (3.6-5.2) mmol/L Venous Blood Potassium 3.2 L (3.6-5.2) mmol/L Random Vancomycin ug/mL 03/18/18 03/18/18 03/18/18 Range/Units 21:20 20:06 20:06 WBC (4.8-10.8) K/uL RBC (4.40-5.90) Mil/uL Hgb (12.0-18.0) g/dL Hct (35.0-51.0) % MCV (80.0-94.0) fL MCH (27.0-31.0) pg MCHC (33.0-37.0) g/dL RDW (11.5-14.5) % Plt Count (130-400) K/uL MPV (7.2-11.7) fL Neut % (Auto) (50.0-75.0) % Lymph % (Auto) (20.0-40.0) % Sevier % (Auto) (0.0-10.0) % Eos % (Auto) (0.0-4.0) % Baso % (Auto) (0.0-2.0) % Neut # (Auto) (1.8-7.0) K/uL Lymph # (Auto) (1.0-4.3) K/uL Sevier # (Auto) (0.0-0.8) K/uL Eos # (Auto) (0.0-0.7) K/uL Baso # (Auto) (0.0-0.2) K/uL Neutrophils % (Manual) (50-75) % Band Neutrophils % (0-2) % Lymphocytes % (Manual) (20-40) % Monocytes % (Manual) (0-10) % Eosinophils % (Manual) (0-4) % Basophils % (Manual) (0-2) % Metamyelocytes % (0-0) % Toxic Granulation Platelet Estimate (NORMAL) Large Platelets Giant Platelets Polychromasia Hypochromasia (manual) Poikilocytosis (manual Anisocytosis (manual) Ovalocytes PT (9.7-12.2) SECONDS INR APTT (21-34) SECONDS Puncture Site pCO2 (35-45) mm/Hg pO2 (80-100) mm/Hg HCO3 (21-28) mmol/L ABG pH (7.35-7.45) ABG Total CO2 (22-28) mmol/L ABG O2 Saturation (95-98) % ABG Base Excess (-2.0-3.0) mmol/L Vern Test ABG Potassium (3.6-5.2) mmol/L VBG pH (7.32-7.43) VBG pCO2 (40-60) mmHg VBG HCO3 mmol/L VBG Total CO2 (22-28) mmol/L VBG O2 Sat (Calc) (40-65) % VBG Base Excess (0.0-2.0) mmol/L VBG Potassium (3.6-5.2) mmol/L A-a O2 Difference mm/Hg Respiratory Index Glucose (75-110) mg/dl Lactate (0.7-2.1) mmol/L Vent Mode Mechanical Rate FiO2 % Tidal Volume PEEP Inspiratory BiPAP Expiratory BiPAP Crit Value Called To Crit Value Called By Crit Value Read Back Blood Gas Notified Time Sodium (132-148) mmol/L Potassium (3.6-5.2) mmol/L Chloride (98-107) mmol/L Carbon Dioxide (22-30) mmol/L Anion Gap (10-20) BUN (9-20) mg/dL Creatinine (0.8-1.5) mg/dL Est GFR ( Amer) Est GFR (Non-Af Amer) POC Glucose (mg/dL) 206 H (65-110) mg/dL Random Glucose (75-110) mg/dL Calcium (8.6-10.4) mg/dl Phosphorus (2.5-4.5) mg/dL Magnesium (1.6-2.3) mg/dL Total Bilirubin (0.2-1.3) mg/dL Direct Bilirubin (0.0-0.4) mg/dL AST (17-59) U/L ALT (21-72) U/L Alkaline Phosphatase (38-126) U/L Ammonia < 9 L (9-33) umol/L Lactate Dehydrogenase 04952 H (313-618) U/L Total Creatine Kinase 3474 H (55-170) U/L CK-MB (Mass) 73.3 H (0.0-3.38) ng/mL Troponin I (0.00-0.120) ng/mL Total Protein (6.3-8.3) g/dL Albumin (3.5-5.0) g/dL Globulin (2.2-3.9) gm/dL Albumin/Globulin Ratio (1.0-2.1) Amylase (30-110) U/L Lipase (23-300) U/L Alpha Fetoprotein (0.0-7.5) ng/mL Carcinoembryonic Ag (0-3.0) ng/mL CA 19-9 Antigen (0-37) U/mL Arterial Blood Potassium (3.6-5.2) mmol/L Venous Blood Potassium (3.6-5.2) mmol/L Random Vancomycin ug/mL 03/18/18 03/18/18 03/18/18 Range/Units 17:43 16:29 16:25 WBC 14.7 H D (4.8-10.8) K/uL RBC 6.09 H (4.40-5.90) Mil/uL Hgb 17.2 (12.0-18.0) g/dL Hct 57.9 H (35.0-51.0) % MCV 95.0 H D (80.0-94.0) fL MCH 28.2 (27.0-31.0) pg MCHC 29.7 L (33.0-37.0) g/dL RDW 19.9 H (11.5-14.5) % Plt Count 211 (130-400) K/uL MPV 11.5 (7.2-11.7) fL Neut % (Auto) 74.1 (50.0-75.0) % Lymph % (Auto) 12.7 L (20.0-40.0) % Sevier % (Auto) 10.6 H (0.0-10.0) % Eos % (Auto) 2.2 (0.0-4.0) % Baso % (Auto) 0.4 (0.0-2.0) % Neut # (Auto) 10.8 H (1.8-7.0) K/uL Lymph # (Auto) 1.9 (1.0-4.3) K/uL Sevier # (Auto) 1.6 H (0.0-0.8) K/uL Eos # (Auto) 0.3 (0.0-0.7) K/uL Baso # (Auto) 0.1 (0.0-0.2) K/uL Neutrophils % (Manual) 47 L (50-75) % Band Neutrophils % 35 H* (0-2) % Lymphocytes % (Manual) 7 L (20-40) % Monocytes % (Manual) 9 (0-10) % Eosinophils % (Manual) 1 (0-4) % Basophils % (Manual) 1 (0-2) % Metamyelocytes % (0-0) % Toxic Granulation Platelet Estimate Normal (NORMAL) Large Platelets Present Giant Platelets Present Polychromasia Hypochromasia (manual) Poikilocytosis (manual Anisocytosis (manual) Ovalocytes PT (9.7-12.2) SECONDS INR APTT (21-34) SECONDS Puncture Site Rba pCO2 33 L (35-45) mm/Hg pO2 370 H (80-100) mm/Hg HCO3 8.8 L* (21-28) mmol/L ABG pH 7.04 L* (7.35-7.45) ABG Total CO2 9.9 L (22-28) mmol/L ABG O2 Saturation 97.9 (95-98) % ABG Base Excess -20.8 L (-2.0-3.0) mmol/L Vern Test Na ABG Potassium 3.5 L (3.6-5.2) mmol/L VBG pH (7.32-7.43) VBG pCO2 (40-60) mmHg VBG HCO3 mmol/L VBG Total CO2 (22-28) mmol/L VBG O2 Sat (Calc) (40-65) % VBG Base Excess (0.0-2.0) mmol/L VBG Potassium (3.6-5.2) mmol/L A-a O2 Difference 230.0 mm/Hg Respiratory Index 0.6 Glucose 338 H (75-110) mg/dl Lactate > 20.0 H* (0.7-2.1) mmol/L Vent Mode Prvc Mechanical Rate 20 FiO2 90.0 % Tidal Volume 500 PEEP 5 Inspiratory BiPAP Expiratory BiPAP Crit Value Called To Baron ellison Crit Value Called By Geremias Crit Value Read Back Y Blood Gas Notified Time 1745 Sodium 140.0 (132-148) mmol/L Potassium (3.6-5.2) mmol/L Chloride 92.0 L (98-107) mmol/L Carbon Dioxide (22-30) mmol/L Anion Gap (10-20) BUN (9-20) mg/dL Creatinine (0.8-1.5) mg/dL Est GFR ( Amer) Est GFR (Non-Af Amer) POC Glucose (mg/dL) 397 H (65-110) mg/dL Random Glucose (75-110) mg/dL Calcium (8.6-10.4) mg/dl Phosphorus (2.5-4.5) mg/dL Magnesium (1.6-2.3) mg/dL Total Bilirubin (0.2-1.3) mg/dL Direct Bilirubin (0.0-0.4) mg/dL AST (17-59) U/L ALT (21-72) U/L Alkaline Phosphatase (38-126) U/L Ammonia (9-33) umol/L Lactate Dehydrogenase (313-618) U/L Total Creatine Kinase (55-170) U/L CK-MB (Mass) (0.0-3.38) ng/mL Troponin I (0.00-0.120) ng/mL Total Protein (6.3-8.3) g/dL Albumin (3.5-5.0) g/dL Globulin (2.2-3.9) gm/dL Albumin/Globulin Ratio (1.0-2.1) Amylase (30-110) U/L Lipase (23-300) U/L Alpha Fetoprotein (0.0-7.5) ng/mL Carcinoembryonic Ag (0-3.0) ng/mL CA 19-9 Antigen (0-37) U/mL Arterial Blood Potassium 3.5 L (3.6-5.2) mmol/L Venous Blood Potassium (3.6-5.2) mmol/L Random Vancomycin ug/mL 03/18/18 03/18/18 03/18/18 Range/Units 16:17 16:17 15:53 WBC (4.8-10.8) K/uL RBC (4.40-5.90) Mil/uL Hgb (12.0-18.0) g/dL Hct (35.0-51.0) % MCV (80.0-94.0) fL MCH (27.0-31.0) pg MCHC (33.0-37.0) g/dL RDW (11.5-14.5) % Plt Count (130-400) K/uL MPV (7.2-11.7) fL Neut % (Auto) (50.0-75.0) % Lymph % (Auto) (20.0-40.0) % Sevier % (Auto) (0.0-10.0) % Eos % (Auto) (0.0-4.0) % Baso % (Auto) (0.0-2.0) % Neut # (Auto) (1.8-7.0) K/uL Lymph # (Auto) (1.0-4.3) K/uL Sevier # (Auto) (0.0-0.8) K/uL Eos # (Auto) (0.0-0.7) K/uL Baso # (Auto) (0.0-0.2) K/uL Neutrophils % (Manual) (50-75) % Band Neutrophils % (0-2) % Lymphocytes % (Manual) (20-40) % Monocytes % (Manual) (0-10) % Eosinophils % (Manual) (0-4) % Basophils % (Manual) (0-2) % Metamyelocytes % (0-0) % Toxic Granulation Platelet Estimate (NORMAL) Large Platelets Giant Platelets Polychromasia Hypochromasia (manual) Poikilocytosis (manual Anisocytosis (manual) Ovalocytes PT 16.7 H D (9.7-12.2) SECONDS INR 1.5 D APTT 55 H D (21-34) SECONDS Puncture Site L fem pCO2 26 L (35-45) mm/Hg pO2 380 H (80-100) mm/Hg HCO3 3.3 L* (21-28) mmol/L ABG pH 6.87 L* (7.35-7.45) ABG Total CO2 5.6 L (22-28) mmol/L ABG O2 Saturation 97.9 (95-98) % ABG Base Excess -27.8 L (-2.0-3.0) mmol/L Vern Test Na ABG Potassium 4.3 (3.6-5.2) mmol/L VBG pH (7.32-7.43) VBG pCO2 (40-60) mmHg VBG HCO3 mmol/L VBG Total CO2 (22-28) mmol/L VBG O2 Sat (Calc) (40-65) % VBG Base Excess (0.0-2.0) mmol/L VBG Potassium (3.6-5.2) mmol/L A-a O2 Difference 301.0 mm/Hg Respiratory Index 0.8 Glucose 316 H (75-110) mg/dl Lactate > 20.0 H* (0.7-2.1) mmol/L Vent Mode Bipap Mechanical Rate FiO2 100.0 % Tidal Volume PEEP Inspiratory BiPAP 12 Expiratory BiPAP 6 Crit Value Called To Baron ellison Crit Value Called By Geremias Crit Value Read Back Y Blood Gas Notified Time 1559 Sodium 137 135.0 (132-148) mmol/L Potassium 4.2 (3.6-5.2) mmol/L Chloride 89 L 88.0 L (98-107) mmol/L Carbon Dioxide < 5 L* D (22-30) mmol/L Anion Gap 47 H (10-20) BUN 32 H (9-20) mg/dL Creatinine 6.4 H (0.8-1.5) mg/dL Est GFR ( Amer) 11 Est GFR (Non-Af Amer) 9 POC Glucose (mg/dL) (65-110) mg/dL Random Glucose 311 H D (75-110) mg/dL Calcium 9.8 (8.6-10.4) mg/dl Phosphorus 16.9 H (2.5-4.5) mg/dL Magnesium 3.3 H (1.6-2.3) mg/dL Total Bilirubin 0.8 (0.2-1.3) mg/dL Direct Bilirubin (0.0-0.4) mg/dL AST 1519 H (17-59) U/L ALT 1529 H (21-72) U/L Alkaline Phosphatase 233 H (38-126) U/L Ammonia (9-33) umol/L Lactate Dehydrogenase (313-618) U/L Total Creatine Kinase (55-170) U/L CK-MB (Mass) (0.0-3.38) ng/mL Troponin I 14.1000 H* (0.00-0.120) ng/mL Total Protein 8.0 (6.3-8.3) g/dL Albumin 4.7 (3.5-5.0) g/dL Globulin 3.3 (2.2-3.9) gm/dL Albumin/Globulin Ratio 1.4 (1.0-2.1) Amylase (30-110) U/L Lipase (23-300) U/L Alpha Fetoprotein (0.0-7.5) ng/mL Carcinoembryonic Ag (0-3.0) ng/mL CA 19-9 Antigen (0-37) U/mL Arterial Blood Potassium 4.3 (3.6-5.2) mmol/L Venous Blood Potassium (3.6-5.2) mmol/L Random Vancomycin ug/mL 03/18/18 03/18/18 03/18/18 Range/Units 15:23 14:52 14:33 WBC (4.8-10.8) K/uL RBC (4.40-5.90) Mil/uL Hgb (12.0-18.0) g/dL Hct (35.0-51.0) % MCV (80.0-94.0) fL MCH (27.0-31.0) pg MCHC (33.0-37.0) g/dL RDW (11.5-14.5) % Plt Count (130-400) K/uL MPV (7.2-11.7) fL Neut % (Auto) (50.0-75.0) % Lymph % (Auto) (20.0-40.0) % Sevier % (Auto) (0.0-10.0) % Eos % (Auto) (0.0-4.0) % Baso % (Auto) (0.0-2.0) % Neut # (Auto) (1.8-7.0) K/uL Lymph # (Auto) (1.0-4.3) K/uL Sevier # (Auto) (0.0-0.8) K/uL Eos # (Auto) (0.0-0.7) K/uL Baso # (Auto) (0.0-0.2) K/uL Neutrophils % (Manual) (50-75) % Band Neutrophils % (0-2) % Lymphocytes % (Manual) (20-40) % Monocytes % (Manual) (0-10) % Eosinophils % (Manual) (0-4) % Basophils % (Manual) (0-2) % Metamyelocytes % (0-0) % Toxic Granulation Platelet Estimate (NORMAL) Large Platelets Giant Platelets Polychromasia Hypochromasia (manual) Poikilocytosis (manual Anisocytosis (manual) Ovalocytes PT (9.7-12.2) SECONDS INR APTT (21-34) SECONDS Puncture Site pCO2 (35-45) mm/Hg pO2 (80-100) mm/Hg HCO3 (21-28) mmol/L ABG pH (7.35-7.45) ABG Total CO2 (22-28) mmol/L ABG O2 Saturation (95-98) % ABG Base Excess (-2.0-3.0) mmol/L Vern Test ABG Potassium (3.6-5.2) mmol/L VBG pH (7.32-7.43) VBG pCO2 (40-60) mmHg VBG HCO3 mmol/L VBG Total CO2 (22-28) mmol/L VBG O2 Sat (Calc) (40-65) % VBG Base Excess (0.0-2.0) mmol/L VBG Potassium (3.6-5.2) mmol/L A-a O2 Difference mm/Hg Respiratory Index Glucose (75-110) mg/dl Lactate (0.7-2.1) mmol/L Vent Mode Mechanical Rate FiO2 % Tidal Volume PEEP Inspiratory BiPAP Expiratory BiPAP Crit Value Called To Crit Value Called By Crit Value Read Back Blood Gas Notified Time Sodium (132-148) mmol/L Potassium (3.6-5.2) mmol/L Chloride (98-107) mmol/L Carbon Dioxide (22-30) mmol/L Anion Gap (10-20) BUN (9-20) mg/dL Creatinine (0.8-1.5) mg/dL Est GFR ( Amer) Est GFR (Non-Af Amer) POC Glucose (mg/dL) 241 H 46 L 50 L (65-110) mg/dL Random Glucose (75-110) mg/dL Calcium (8.6-10.4) mg/dl Phosphorus (2.5-4.5) mg/dL Magnesium (1.6-2.3) mg/dL Total Bilirubin (0.2-1.3) mg/dL Direct Bilirubin (0.0-0.4) mg/dL AST (17-59) U/L ALT (21-72) U/L Alkaline Phosphatase (38-126) U/L Ammonia (9-33) umol/L Lactate Dehydrogenase (313-618) U/L Total Creatine Kinase (55-170) U/L CK-MB (Mass) (0.0-3.38) ng/mL Troponin I (0.00-0.120) ng/mL Total Protein (6.3-8.3) g/dL Albumin (3.5-5.0) g/dL Globulin (2.2-3.9) gm/dL Albumin/Globulin Ratio (1.0-2.1) Amylase (30-110) U/L Lipase (23-300) U/L Alpha Fetoprotein (0.0-7.5) ng/mL Carcinoembryonic Ag (0-3.0) ng/mL CA 19-9 Antigen (0-37) U/mL Arterial Blood Potassium (3.6-5.2) mmol/L Venous Blood Potassium (3.6-5.2) mmol/L Random Vancomycin ug/mL 03/18/18 03/18/18 03/18/18 Range/Units 14:24 13:25 13:09 WBC (4.8-10.8) K/uL RBC (4.40-5.90) Mil/uL Hgb (12.0-18.0) g/dL Hct (35.0-51.0) % MCV (80.0-94.0) fL MCH (27.0-31.0) pg MCHC (33.0-37.0) g/dL RDW (11.5-14.5) % Plt Count (130-400) K/uL MPV (7.2-11.7) fL Neut % (Auto) (50.0-75.0) % Lymph % (Auto) (20.0-40.0) % Sevier % (Auto) (0.0-10.0) % Eos % (Auto) (0.0-4.0) % Baso % (Auto) (0.0-2.0) % Neut # (Auto) (1.8-7.0) K/uL Lymph # (Auto) (1.0-4.3) K/uL Sevier # (Auto) (0.0-0.8) K/uL Eos # (Auto) (0.0-0.7) K/uL Baso # (Auto) (0.0-0.2) K/uL Neutrophils % (Manual) (50-75) % Band Neutrophils % (0-2) % Lymphocytes % (Manual) (20-40) % Monocytes % (Manual) (0-10) % Eosinophils % (Manual) (0-4) % Basophils % (Manual) (0-2) % Metamyelocytes % (0-0) % Toxic Granulation Platelet Estimate (NORMAL) Large Platelets Giant Platelets Polychromasia Hypochromasia (manual) Poikilocytosis (manual Anisocytosis (manual) Ovalocytes PT (9.7-12.2) SECONDS INR APTT (21-34) SECONDS Puncture Site pCO2 (35-45) mm/Hg pO2 (80-100) mm/Hg HCO3 (21-28) mmol/L ABG pH (7.35-7.45) ABG Total CO2 (22-28) mmol/L ABG O2 Saturation (95-98) % ABG Base Excess (-2.0-3.0) mmol/L Vern Test ABG Potassium (3.6-5.2) mmol/L VBG pH (7.32-7.43) VBG pCO2 (40-60) mmHg VBG HCO3 mmol/L VBG Total CO2 (22-28) mmol/L VBG O2 Sat (Calc) (40-65) % VBG Base Excess (0.0-2.0) mmol/L VBG Potassium (3.6-5.2) mmol/L A-a O2 Difference mm/Hg Respiratory Index Glucose (75-110) mg/dl Lactate (0.7-2.1) mmol/L Vent Mode Mechanical Rate FiO2 % Tidal Volume PEEP Inspiratory BiPAP Expiratory BiPAP Crit Value Called To Crit Value Called By Crit Value Read Back Blood Gas Notified Time Sodium (132-148) mmol/L Potassium (3.6-5.2) mmol/L Chloride (98-107) mmol/L Carbon Dioxide (22-30) mmol/L Anion Gap (10-20) BUN (9-20) mg/dL Creatinine (0.8-1.5) mg/dL Est GFR ( Amer) Est GFR (Non-Af Amer) POC Glucose (mg/dL) 62 L (65-110) mg/dL Random Glucose (75-110) mg/dL Calcium (8.6-10.4) mg/dl Phosphorus (2.5-4.5) mg/dL Magnesium (1.6-2.3) mg/dL Total Bilirubin (0.2-1.3) mg/dL Direct Bilirubin (0.0-0.4) mg/dL AST (17-59) U/L ALT (21-72) U/L Alkaline Phosphatase (38-126) U/L Ammonia (9-33) umol/L Lactate Dehydrogenase (313-618) U/L Total Creatine Kinase (55-170) U/L CK-MB (Mass) (0.0-3.38) ng/mL Troponin I (0.00-0.120) ng/mL Total Protein (6.3-8.3) g/dL Albumin (3.5-5.0) g/dL Globulin (2.2-3.9) gm/dL Albumin/Globulin Ratio (1.0-2.1) Amylase (30-110) U/L Lipase (23-300) U/L Alpha Fetoprotein 4.6 (0.0-7.5) ng/mL Carcinoembryonic Ag (0-3.0) ng/mL CA 19-9 Antigen (0-37) U/mL Arterial Blood Potassium (3.6-5.2) mmol/L Venous Blood Potassium (3.6-5.2) mmol/L Random Vancomycin < 5.0 ug/mL 03/18/18 03/18/18 Range/Units 13:09 11:29 WBC (4.8-10.8) K/uL RBC (4.40-5.90) Mil/uL Hgb (12.0-18.0) g/dL Hct (35.0-51.0) % MCV (80.0-94.0) fL MCH (27.0-31.0) pg MCHC (33.0-37.0) g/dL RDW (11.5-14.5) % Plt Count (130-400) K/uL MPV (7.2-11.7) fL Neut % (Auto) (50.0-75.0) % Lymph % (Auto) (20.0-40.0) % [place] % (Auto) (0.0-10.0) % Eos % (Auto) (0.0-4.0) % Baso % (Auto) (0.0-2.0) % Neut # (Auto) (1.8-7.0) K/uL Lymph # (Auto) (1.0-4.3) K/uL [place] # (Auto) (0.0-0.8) K/uL Eos # (Auto) (0.0-0.7) K/uL Baso # (Auto) (0.0-0.2) K/uL Neutrophils % (Manual) (50-75) % Band Neutrophils % (0-2) % Lymphocytes % (Manual) (20-40) % Monocytes % (Manual) (0-10) % Eosinophils % (Manual) (0-4) % Basophils % (Manual) (0-2) % Metamyelocytes % (0-0) % Toxic Granulation Platelet Estimate (NORMAL) Large Platelets Giant Platelets Polychromasia Hypochromasia (manual) Poikilocytosis (manual Anisocytosis (manual) Ovalocytes PT (9.7-12.2) SECONDS INR APTT (21-34) SECONDS Puncture Site pCO2 (35-45) mm/Hg pO2 (80-100) mm/Hg HCO3 (21-28) mmol/L ABG pH (7.35-7.45) ABG Total CO2 (22-28) mmol/L ABG O2 Saturation (95-98) % ABG Base Excess (-2.0-3.0) mmol/L Vern Test ABG Potassium (3.6-5.2) mmol/L VBG pH (7.32-7.43) VBG pCO2 (40-60) mmHg VBG HCO3 mmol/L VBG Total CO2 (22-28) mmol/L VBG O2 Sat (Calc) (40-65) % VBG Base Excess (0.0-2.0) mmol/L VBG Potassium (3.6-5.2) mmol/L A-a O2 Difference mm/Hg Respiratory Index Glucose (75-110) mg/dl Lactate (0.7-2.1) mmol/L Vent Mode Mechanical Rate FiO2 % Tidal Volume PEEP Inspiratory BiPAP Expiratory BiPAP Crit Value Called To Crit Value Called By Crit Value Read Back Blood Gas Notified Time Sodium 139 (132-148) mmol/L Potassium 4.5 (3.6-5.2) mmol/L Chloride 92 L (98-107) mmol/L Carbon Dioxide 16 L (22-30) mmol/L Anion Gap 36 H (10-20) BUN 20 (9-20) mg/dL Creatinine 3.7 H (0.8-1.5) mg/dL Est GFR ( Amer) 20 Est GFR (Non-Af Amer) 17 POC Glucose (mg/dL) 138 H (65-110) mg/dL Random Glucose 98 D (75-110) mg/dL Calcium 10.8 H (8.6-10.4) mg/dl Phosphorus (2.5-4.5) mg/dL Magnesium (1.6-2.3) mg/dL Total Bilirubin (0.2-1.3) mg/dL Direct Bilirubin (0.0-0.4) mg/dL AST (17-59) U/L ALT (21-72) U/L Alkaline Phosphatase (38-126) U/L Ammonia (9-33) umol/L Lactate Dehydrogenase (313-618) U/L Total Creatine Kinase (55-170) U/L CK-MB (Mass) (0.0-3.38) ng/mL Troponin I (0.00-0.120) ng/mL Total Protein (6.3-8.3) g/dL Albumin (3.5-5.0) g/dL Globulin (2.2-3.9) gm/dL Albumin/Globulin Ratio (1.0-2.1) Amylase 421 H D (30-110) U/L Lipase 55 (23-300) U/L Alpha Fetoprotein (0.0-7.5) ng/mL Carcinoembryonic Ag 21.4 H (0-3.0) ng/mL CA 19-9 Antigen 27.4 (0-37) U/mL Arterial Blood Potassium (3.6-5.2) mmol/L Venous Blood Potassium (3.6-5.2) mmol/L Random Vancomycin ug/mL Laboratory Results - last 24 hr 03/18/18 03/18/18 03/18/18 11:29 13:09 13:09 WBC RBC Hgb Hct MCV MCH MCHC RDW Plt Count MPV Neut % (Auto) Lymph % (Auto) Sevier % (Auto) Eos % (Auto) Baso % (Auto) Neut # (Auto) Lymph # (Auto) [place] # (Auto) Eos # (Auto) Baso # (Auto) Neutrophils % (Manual) Band Neutrophils % Lymphocytes % (Manual) Monocytes % (Manual) Eosinophils % (Manual) Basophils % (Manual) Metamyelocytes % Toxic Granulation Platelet Estimate Large Platelets Giant Platelets Polychromasia Hypochromasia (manual) Poikilocytosis (manual Anisocytosis (manual) Ovalocytes PT INR APTT Puncture Site pCO2 pO2 HCO3 ABG pH ABG Total CO2 ABG O2 Saturation ABG Base Excess Vern Test ABG Potassium VBG pH VBG pCO2 VBG HCO3 VBG Total CO2 VBG O2 Sat (Calc) VBG Base Excess VBG Potassium A-a O2 Difference Respiratory Index Glucose Lactate Vent Mode Mechanical Rate FiO2 Tidal Volume PEEP Inspiratory BiPAP Expiratory BiPAP Crit Value Called To Crit Value Called By Crit Value Read Back Blood Gas Notified Time Sodium 139 Potassium 4.5 Chloride 92 L Carbon Dioxide 16 L Anion Gap 36 H BUN 20 Creatinine 3.7 H Est GFR ( Amer) 20 Est GFR (Non-Af Amer) 17 POC Glucose (mg/dL) 138 H Random Glucose 98 D Calcium 10.8 H Phosphorus Magnesium Total Bilirubin Direct Bilirubin AST ALT Alkaline Phosphatase Ammonia Lactate Dehydrogenase Total Creatine Kinase CK-MB (Mass) Troponin I Total Protein Albumin Globulin Albumin/Globulin Ratio Amylase 421 H D Lipase 55 Alpha Fetoprotein Carcinoembryonic Ag 21.4 H CA 19-9 Antigen 27.4 Arterial Blood Potassium Venous Blood Potassium Random Vancomycin < 5.0 03/18/18 03/18/18 03/18/18 13:25 14:24 14:33 WBC RBC Hgb Hct MCV MCH MCHC RDW Plt Count MPV Neut % (Auto) Lymph % (Auto) [place] % (Auto) Eos % (Auto) Baso % (Auto) Neut # (Auto) Lymph # (Auto) [place] # (Auto) Eos # (Auto) Baso # (Auto) Neutrophils % (Manual) Band Neutrophils % Lymphocytes % (Manual) Monocytes % (Manual) Eosinophils % (Manual) Basophils % (Manual) Metamyelocytes % Toxic Granulation Platelet Estimate Large Platelets Giant Platelets Polychromasia Hypochromasia (manual) Poikilocytosis (manual Anisocytosis (manual) Ovalocytes PT INR APTT Puncture Site pCO2 pO2 HCO3 ABG pH ABG Total CO2 ABG O2 Saturation ABG Base Excess Vern Test ABG Potassium VBG pH VBG pCO2 VBG HCO3 VBG Total CO2 VBG O2 Sat (Calc) VBG Base Excess VBG Potassium A-a O2 Difference Respiratory Index Glucose Lactate Vent Mode Mechanical Rate FiO2 Tidal Volume PEEP Inspiratory BiPAP Expiratory BiPAP Crit Value Called To Crit Value Called By Crit Value Read Back Blood Gas Notified Time Sodium Potassium Chloride Carbon Dioxide Anion Gap BUN Creatinine Est GFR ( Amer) Est GFR (Non-Af Amer) POC Glucose (mg/dL) 62 L 50 L Random Glucose Calcium Phosphorus Magnesium Total Bilirubin Direct Bilirubin AST ALT Alkaline Phosphatase Ammonia Lactate Dehydrogenase Total Creatine Kinase CK-MB (Mass) Troponin I Total Protein Albumin Globulin Albumin/Globulin Ratio Amylase Lipase Alpha Fetoprotein 4.6 Carcinoembryonic Ag CA 19-9 Antigen Arterial Blood Potassium Venous Blood Potassium Random Vancomycin 1203/18/18 03/18/18 14:52 15:23 15:53 WBC RBC Hgb Hct MCV MCH MCHC RDW Plt Count MPV Neut % (Auto) Lymph % (Auto) [place] % (Auto) Eos % (Auto) Baso % (Auto) Neut # (Auto) Lymph # (Auto) [place] # (Auto) Eos # (Auto) Baso # (Auto) Neutrophils % (Manual) Band Neutrophils % Lymphocytes % (Manual) Monocytes % (Manual) Eosinophils % (Manual) Basophils % (Manual) Metamyelocytes % Toxic Granulation Platelet Estimate Large Platelets Giant Platelets Polychromasia Hypochromasia (manual) Poikilocytosis (manual Anisocytosis (manual) Ovalocytes PT INR APTT Puncture Site L fem pCO2 26 L pO2 380 H HCO3 3.3 L* ABG pH 6.87 L* ABG Total CO2 5.6 L ABG O2 Saturation 97.9 ABG Base Excess -27.8 L Vern Test Na ABG Potassium 4.3 VBG pH VBG pCO2 VBG HCO3 VBG Total CO2 VBG O2 Sat (Calc) VBG Base Excess VBG Potassium A-a O2 Difference 301.0 Respiratory Index 0.8 Glucose 316 H Lactate > 20.0 H* Vent Mode Bipap Mechanical Rate FiO2 100.0 Tidal Volume PEEP Inspiratory BiPAP 12 Expiratory BiPAP 6 Crit Value Called To Baron ellison Crit Value Called By Geremias Crit Value Read Back Y Blood Gas Notified Time 1559 Sodium 135.0 Potassium Chloride 88.0 L Carbon Dioxide Anion Gap BUN Creatinine Est GFR ( Amer) Est GFR (Non-Af Amer) POC Glucose (mg/dL) 46 L 241 H Random Glucose Calcium Phosphorus Magnesium Total Bilirubin Direct Bilirubin AST ALT Alkaline Phosphatase Ammonia Lactate Dehydrogenase Total Creatine Kinase CK-MB (Mass) Troponin I Total Protein Albumin Globulin Albumin/Globulin Ratio Amylase Lipase Alpha Fetoprotein Carcinoembryonic Ag CA 19-9 Antigen Arterial Blood Potassium 4.3 Venous Blood Potassium Random Vancomycin 03/18/18 03/18/18 03/18/18 16:17 16:17 16:25 WBC RBC Hgb Hct MCV MCH MCHC RDW Plt Count MPV Neut % (Auto) Lymph % (Auto) [place] % (Auto) Eos % (Auto) Baso % (Auto) Neut # (Auto) Lymph # (Auto) [place] # (Auto) Eos # (Auto) Baso # (Auto) Neutrophils % (Manual) Band Neutrophils % Lymphocytes % (Manual) Monocytes % (Manual) Eosinophils % (Manual) Basophils % (Manual) Metamyelocytes % Toxic Granulation Platelet Estimate Large Platelets Giant Platelets Polychromasia Hypochromasia (manual) Poikilocytosis (manual Anisocytosis (manual) Ovalocytes PT 16.7 H D INR 1.5 D APTT 55 H D Puncture Site pCO2 pO2 HCO3 ABG pH ABG Total CO2 ABG O2 Saturation ABG Base Excess Vern Test ABG Potassium VBG pH VBG pCO2 VBG HCO3 VBG Total CO2 VBG O2 Sat (Calc) VBG Base Excess VBG Potassium A-a O2 Difference Respiratory Index Glucose Lactate Vent Mode Mechanical Rate FiO2 Tidal Volume PEEP Inspiratory BiPAP Expiratory BiPAP Crit Value Called To Crit Value Called By Crit Value Read Back Blood Gas Notified Time Sodium 137 Potassium 4.2 Chloride 89 L Carbon Dioxide < 5 L* D Anion Gap 47 H BUN 32 H Creatinine 6.4 H Est GFR ( Amer) 11 Est GFR (Non-Af Amer) 9 POC Glucose (mg/dL) 397 H Random Glucose 311 H D Calcium 9.8 Phosphorus 16.9 H Magnesium 3.3 H Total Bilirubin 0.8 Direct Bilirubin AST 1519 H ALT 1529 H Alkaline Phosphatase 233 H Ammonia Lactate Dehydrogenase Total Creatine Kinase CK-MB (Mass) Troponin I 14.1000 H* Total Protein 8.0 Albumin 4.7 Globulin 3.3 Albumin/Globulin Ratio 1.4 Amylase Lipase Alpha Fetoprotein Carcinoembryonic Ag CA 19-9 Antigen Arterial Blood Potassium Venous Blood Potassium Random Vancomycin 03/18/18 03/18/18 03/18/18 16:29 17:43 20:06 WBC 14.7 H D RBC 6.09 H Hgb 17.2 Hct 57.9 H MCV 95.0 H D MCH 28.2 MCHC 29.7 L RDW 19.9 H Plt Count 211 MPV 11.5 Neut % (Auto) 74.1 Lymph % (Auto) 12.7 L [place] % (Auto) 10.6 H Eos % (Auto) 2.2 Baso % (Auto) 0.4 Neut # (Auto) 10.8 H Lymph # (Auto) 1.9 [place] # (Auto) 1.6 H Eos # (Auto) 0.3 Baso # (Auto) 0.1 Neutrophils % (Manual) 47 L Band Neutrophils % 35 H* Lymphocytes % (Manual) 7 L Monocytes % (Manual) 9 Eosinophils % (Manual) 1 Basophils % (Manual) 1 Metamyelocytes % Toxic Granulation Platelet Estimate Normal Large Platelets Present Giant Platelets Present Polychromasia Hypochromasia (manual) Poikilocytosis (manual Anisocytosis (manual) Ovalocytes PT INR APTT Puncture Site Rba pCO2 33 L pO2 370 H HCO3 8.8 L* ABG pH 7.04 L* ABG Total CO2 9.9 L ABG O2 Saturation 97.9 ABG Base Excess -20.8 L Vern Test Na ABG Potassium 3.5 L VBG pH VBG pCO2 VBG HCO3 VBG Total CO2 VBG O2 Sat (Calc) VBG Base Excess VBG Potassium A-a O2 Difference 230.0 Respiratory Index 0.6 Glucose 338 H Lactate > 20.0 H* Vent Mode Prvc Mechanical Rate 20 FiO2 90.0 Tidal Volume 500 PEEP 5 Inspiratory BiPAP Expiratory BiPAP Crit Value Called To Baron ellison Crit Value Called By Geremias Crit Value Read Back Y Blood Gas Notified Time 1745 Sodium 140.0 Potassium Chloride 92.0 L Carbon Dioxide Anion Gap BUN Creatinine Est GFR ( Amer) Est GFR (Non-Af Amer) POC Glucose (mg/dL) Random Glucose Calcium Phosphorus Magnesium Total Bilirubin Direct Bilirubin AST ALT Alkaline Phosphatase Ammonia < 9 L Lactate Dehydrogenase Total Creatine Kinase CK-MB (Mass) Troponin I Total Protein Albumin Globulin Albumin/Globulin Ratio Amylase Lipase Alpha Fetoprotein Carcinoembryonic Ag CA 19-9 Antigen Arterial Blood Potassium 3.5 L Venous Blood Potassium Random Vancomycin 03/18/18 03/18/18 03/18/18 20:06 21:20 22:24 WBC RBC Hgb Hct MCV MCH MCHC RDW Plt Count MPV Neut % (Auto) Lymph % (Auto) [place] % (Auto) Eos % (Auto) Baso % (Auto) Neut # (Auto) Lymph # (Auto) [place] # (Auto) Eos # (Auto) Baso # (Auto) Neutrophils % (Manual) Band Neutrophils % Lymphocytes % (Manual) Monocytes % (Manual) Eosinophils % (Manual) Basophils % (Manual) Metamyelocytes % Toxic Granulation Platelet Estimate Large Platelets Giant Platelets Polychromasia Hypochromasia (manual) Poikilocytosis (manual Anisocytosis (manual) Ovalocytes PT INR APTT Puncture Site pCO2 pO2 48 HCO3 ABG pH ABG Total CO2 ABG O2 Saturation ABG Base Excess Vern Test ABG Potassium VBG pH 7.34 VBG pCO2 33 L VBG HCO3 19.0 VBG Total CO2 18.8 L VBG O2 Sat (Calc) 84.7 H VBG Base Excess -7.0 L VBG Potassium 3.2 L A-a O2 Difference Respiratory Index Glucose 218 H Lactate 9.2 H* Vent Mode Mechanical Rate FiO2 Tidal Volume PEEP Inspiratory BiPAP Expiratory BiPAP 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 Crit Value Called By Geremias Crit Value Read Back Y Blood Gas Notified Time 2228 Sodium 138.0 Potassium Chloride 100.0 Carbon Dioxide Anion Gap BUN Creatinine Est GFR ( Amer) Est GFR (Non-Af Amer) POC Glucose (mg/dL) 206 H Random Glucose Calcium Phosphorus Magnesium Total Bilirubin Direct Bilirubin AST ALT Alkaline Phosphatase Ammonia Lactate Dehydrogenase 71067 H Total Creatine Kinase 3474 H CK-MB (Mass) 73.3 H Troponin I Total Protein Albumin Globulin Albumin/Globulin Ratio Amylase Lipase Alpha Fetoprotein Carcinoembryonic Ag CA 19-9 Antigen Arterial Blood Potassium Venous Blood Potassium 3.2 L Random Vancomycin 03/18/18 03/18/18 03/18/18 22:33 22:33 22:33 WBC 2.8 L D RBC 5.40 Hgb 15.4 Hct 47.9 MCV 88.7 D MCH 28.6 MCHC 32.3 L RDW 18.6 H Plt Count 152 MPV 10.5 Neut % (Auto) 85.6 H Lymph % (Auto) 8.5 L [place] % (Auto) 3.5 Eos % (Auto) 2.1 Baso % (Auto) 0.3 Neut # (Auto) 2.4 Lymph # (Auto) 0.2 L [place] # (Auto) 0.1 Eos # (Auto) 0.1 Baso # (Auto) 0.0 Neutrophils % (Manual) 29 L Band Neutrophils % 41 H* Lymphocytes % (Manual) 24 Monocytes % (Manual) 6 Eosinophils % (Manual) Basophils % (Manual) Metamyelocytes % Toxic Granulation Platelet Estimate Normal Large Platelets Giant Platelets Polychromasia Hypochromasia (manual) Poikilocytosis (manual Anisocytosis (manual) Ovalocytes PT 20.4 H INR 1.9 APTT 41 H D Puncture Site pCO2 pO2 HCO3 ABG pH ABG Total CO2 ABG O2 Saturation ABG Base Excess Vern Test ABG Potassium VBG pH VBG pCO2 VBG HCO3 VBG Total CO2 VBG O2 Sat (Calc) VBG Base Excess VBG Potassium A-a O2 Difference Respiratory Index Glucose Lactate Vent Mode Mechanical Rate FiO2 Tidal Volume PEEP Inspiratory BiPAP Expiratory BiPAP Crit Value Called To Crit Value Called By Crit Value Read Back Blood Gas Notified Time Sodium 135 Potassium 3.9 Chloride 88 L Carbon Dioxide 25 Anion Gap 26 H BUN 51 H Creatinine 5.7 H Est GFR ( Amer) 12 Est GFR (Non-Af Amer) 10 POC Glucose (mg/dL) Random Glucose 260 H Calcium 8.3 L Phosphorus Magnesium Total Bilirubin Direct Bilirubin AST ALT Alkaline Phosphatase Ammonia Lactate Dehydrogenase Total Creatine Kinase 5946 H CK-MB (Mass) 115 H Troponin I Total Protein Albumin Globulin Albumin/Globulin Ratio Amylase Lipase Alpha Fetoprotein Carcinoembryonic Ag CA 19-9 Antigen Arterial Blood Potassium Venous Blood Potassium Random Vancomycin 03/18/18 03/18/18 03/19/18 23:38 23:38 01:17 WBC 2.9 L RBC 5.43 Hgb 15.7 Hct 48.0 MCV 88.4 MCH 29.0 MCHC 32.8 L RDW 18.3 H Plt Count 134 MPV 10.7 Neut % (Auto) 83.7 H Lymph % (Auto) 8.8 L [place] % (Auto) 6.6 Eos % (Auto) 0.7 Baso % (Auto) 0.2 Neut # (Auto) 2.4 Lymph # (Auto) 0.3 L [place] # (Auto) 0.2 Eos # (Auto) 0.0 Baso # (Auto) 0.0 Neutrophils % (Manual) Band Neutrophils % Lymphocytes % (Manual) Monocytes % (Manual) Eosinophils % (Manual) Basophils % (Manual) Metamyelocytes % Toxic Granulation Platelet Estimate Large Platelets Giant Platelets Polychromasia Hypochromasia (manual) Poikilocytosis (manual Anisocytosis (manual) Ovalocytes PT INR APTT Puncture Site pCO2 pO2 HCO3 ABG pH ABG Total CO2 ABG O2 Saturation ABG Base Excess Vern Test ABG Potassium VBG pH VBG pCO2 VBG HCO3 VBG Total CO2 VBG O2 Sat (Calc) VBG Base Excess VBG Potassium A-a O2 Difference Respiratory Index Glucose Lactate Vent Mode Mechanical Rate FiO2 Tidal Volume PEEP Inspiratory BiPAP Expiratory BiPAP Crit Value Called To Crit Value Called By Crit Value Read Back Blood Gas Notified Time Sodium 137 Potassium 3.9 Chloride 91 L Carbon Dioxide 25 Anion Gap 26 H BUN 52 H Creatinine 5.6 H Est GFR ( Amer) 12 Est GFR (Non-Af Amer) 10 POC Glucose (mg/dL) 258 H Random Glucose 232 H Calcium 8.5 L Phosphorus Magnesium Total Bilirubin 1.0 Direct Bilirubin 1.0 H AST 9529 H ALT 4909 H Alkaline Phosphatase 239 H Ammonia Lactate Dehydrogenase Total Creatine Kinase 6926 H CK-MB (Mass) 121 H Troponin I 38.7000 H* Total Protein 6.3 Albumin 3.6 Globulin 2.7 Albumin/Globulin Ratio 1.4 Amylase Lipase Alpha Fetoprotein Carcinoembryonic Ag CA 19-9 Antigen Arterial Blood Potassium Venous Blood Potassium Random Vancomycin 03/19/18 03/19/18 03/19/18 05:27 06:23 06:23 WBC 4.0 L RBC 4.98 Hgb 14.6 Hct 43.8 MCV 87.9 MCH 29.3 MCHC 33.3 RDW 18.2 H Plt Count 130 MPV 11.6 Neut % (Auto) 77.6 H Lymph % (Auto) 8.6 L [place] % (Auto) 10.2 H Eos % (Auto) 3.4 Baso % (Auto) 0.2 Neut # (Auto) 3.1 Lymph # (Auto) 0.3 L [place] # (Auto) 0.4 Eos # (Auto) 0.1 Baso # (Auto) 0.0 Neutrophils % (Manual) 37 L Band Neutrophils % 35 H* Lymphocytes % (Manual) 9 L Monocytes % (Manual) 12 H Eosinophils % (Manual) 5 H Basophils % (Manual) Metamyelocytes % 2 H Toxic Granulation Present Platelet Estimate Normal Large Platelets Present Giant Platelets Present Polychromasia Slight Hypochromasia (manual) Slight Poikilocytosis (manual Slight Anisocytosis (manual) Slight Ovalocytes Slight PT INR APTT Puncture Site Rr pCO2 35 pO2 82 HCO3 23.9 ABG pH 7.42 ABG Total CO2 23.8 ABG O2 Saturation 95.1 ABG Base Excess -1.3 Vern Test Pos ABG Potassium 3.7 VBG pH VBG pCO2 VBG HCO3 VBG Total CO2 VBG O2 Sat (Calc) VBG Base Excess VBG Potassium A-a O2 Difference 231.0 Respiratory Index 2.8 Glucose 59 L Lactate 9.4 H* Vent Mode Prvc Mechanical Rate 20 FiO2 50.0 Tidal Volume 500 PEEP 5 Inspiratory BiPAP Expiratory BiPAP Crit Value Called To Barbi rn Crit Value Called By Jess functional tester typewriters Crit Value Read Back Y Blood Gas Notified Time 536 Sodium 136.0 135 Potassium 3.5 L Chloride 95.0 L 88 L Carbon Dioxide 26 Anion Gap 24 H BUN 58 H Creatinine 5.9 H Est GFR ( Amer) 12 Est GFR (Non-Af Amer) 10 POC Glucose (mg/dL) Random Glucose 79 D Calcium 8.5 L Phosphorus 3.8 Magnesium 2.1 Total Bilirubin 0.9 Direct Bilirubin AST 7020 H ALT 4245 H Alkaline Phosphatase 247 H Ammonia Lactate Dehydrogenase Total Creatine Kinase CK-MB (Mass) Troponin I Total Protein 5.5 L Albumin 2.9 L Globulin 2.6 Albumin/Globulin Ratio 1.1 Amylase Lipase Alpha Fetoprotein Carcinoembryonic Ag CA 19-9 Antigen Arterial Blood Potassium 3.7 Venous Blood Potassium Random Vancomycin 03/19/18 03/19/18 06:31 10:28 WBC RBC Hgb Hct MCV MCH MCHC RDW Plt Count MPV Neut % (Auto) Lymph % (Auto) [place] % (Auto) Eos % (Auto) Baso % (Auto) Neut # (Auto) Lymph # (Auto) [place] # (Auto) Eos # (Auto) Baso # (Auto) Neutrophils % (Manual) Band Neutrophils % Lymphocytes % (Manual) Monocytes % (Manual) Eosinophils % (Manual) Basophils % (Manual) Metamyelocytes % Toxic Granulation Platelet Estimate Large Platelets Giant Platelets Polychromasia Hypochromasia (manual) Poikilocytosis (manual Anisocytosis (manual) Ovalocytes PT INR APTT Puncture Site A-line pCO2 36 pO2 256 H HCO3 15.2 L ABG pH 7.21 L ABG Total CO2 15.5 L ABG O2 Saturation 97.1 ABG Base Excess -12.6 L Vern Test Na ABG Potassium 3.4 L VBG pH VBG pCO2 VBG HCO3 VBG Total CO2 VBG O2 Sat (Calc) VBG Base Excess VBG Potassium A-a O2 Difference 412.0 Respiratory Index 1.6 Glucose 30 L* D Lactate 12.0 H* Vent Mode Mechanical Rate 20 FiO2 100.0 Tidal Volume 500 PEEP 5 Inspiratory BiPAP Expiratory BiPAP Crit Value Called To Dr eric bardales Crit Value Called By Ashutosh zhao [facility] Crit Value Read Back Y Blood Gas Notified Time 1035 Sodium 139.0 Potassium Chloride 102.0 Carbon Dioxide Anion Gap BUN Creatinine Est GFR ( Amer) Est GFR (Non-Af Amer) POC Glucose (mg/dL) 82 Random Glucose Calcium Phosphorus Magnesium Total Bilirubin Direct Bilirubin AST ALT Alkaline Phosphatase Ammonia Lactate Dehydrogenase Total Creatine Kinase CK-MB (Mass) Troponin I Total Protein Albumin Globulin Albumin/Globulin Ratio Amylase Lipase Alpha Fetoprotein Carcinoembryonic Ag CA 19-9 Antigen Arterial Blood Potassium 3.4 L Venous Blood Potassium Random Vancomycin Radiology Impressions: Radiology Impressions Abdomen/Pelvis CT 03/17/18 12:32 IMPRESSION: Partial gastrectomy with gastrojejunostomy. Hiatal hernia. Fluid distends the visualized distal thoracic esophagus, possibly due to reflux. Fluid-filled stomach noted as well. Dilated small bowel loops to the level of the ileocecal valve suggests possible adynamic ileus. Correlate clinically. Cardiomegaly. CABG. Atrophic kidneys. 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 Old calcified granulomas of the lung and spleen. Ecchymosis over left lower anterior abdominal wall, nonspecific. Minor findings as above. Abdomen Ultrasound 03/18/18 10:59 IMPRESSION: 1.3 x 1.3 x 1.4 cm mid to upper pole left renal cyst. Dilated common bile duct in the setting of cholecystectomy. Echogenic liver may be seen in setting of hepatic parenchymal disease or fatty infiltration. Nodular hepatic contour. Correlate clinically for cirrhosis. Chest X-Ray 03/18/18 14:22 IMPRESSION: Hypoinflation. No focal consolidation identified. Cardiomegaly. Chest X-Ray 03/18/18 16:32 IMPRESSION: Endotracheal tube. Nasogastric tube. Additional findings as above. Chest X-Ray 03/18/18 17:04 IMPRESSION: No significant interval change compared to the prior examination(s). This includes the recent chest x-ray performed approximately 40 min before this current study. No visible free air. EKG/Cardiology Studies: Cardiology / EKG Studies 03/18/18 16:00 EKG [ELECTROCARDIOGRAM] Stat Comment: Mode Of Transportation: Reason For Exam: cad 03/18/18 17:32 EKG [ELECTROCARDIOGRAM] Stat Comment: Mode Of Transportation: Reason For Exam: NV EKG [ELECTROCARDIOGRAM] Stat Comment: Mode Of Transportation: Reason For Exam: critical trop value EKG [ELECTROCARDIOGRAM] Stat Comment: Mode Of Transportation: BED Reason For Exam: troponin 14.1 Fingerstick Blood Sugar Results: 82 Review of Systems - Review of Systems Systems not reviewed;Unavailable: Intubated Critical Care Progress Note - Nutrition Nutrition: Nutrition Category Date Time Status NPO Diet [DIET] Diets 03/20/18 Breakfast Active NPO Diet [DIET] Diets 03/18/18 Dinner Active Assessment/Plan - Assessment and Plan (Free Text) Assessment: Anoxic brain injury: pupils not reactive, patient s/p cardiac arrest, suspect large anoxic brain injury, -Cardiac arrest: continue DAPT as per cardiology, continue heparin as per cardiology, continue pressors to keep MAP >65, patient on max noerpi, epi/vaso, heart function very poor and not responsive to max pressors -CKD: ESRD on HD, BP unstable for HD, continue bicarb ggt -Cardiogenic shock: continue and epi to keep Ci >2.2 -Spesis: source unknonwn, continue abx , serial lactic q4hrs, check vanco and amikacin level (pending) -hold NG tube feeds -check BGM q6hrs -dvt ppx heparin -PUD ppx protonix Echo penidng, repeat cbc/cmp/trop pending, vanco and aikacin pending Patient remains critical with multi-organ failure on max pressors at risk of imminent . Daughter at bedside informed of graave prognosis, Cardiology Dr. Campbell also informed of above clinical management cc time 55 minutes. - Date & Time Date: 03/19/18 Time: 11:28
[2018-03-19 12:46] LABS: LYMPH # 0.5 K/uL (1.0-4.3); NRBC % 1.9 % (0.0-2.0)
[2018-03-19 12:54] LABS: INR 2.8; PROTHROMBIN TIME 30.6 SECONDS (9.7-12.2)
[2018-03-19 13:02] LABS: BASO % 0.3 % (0.0-2.0); EOS # 0.2 K/uL (0.0-0.7); EOS % 4.7 % (0.0-4.0); LYMPH % 11.2 % (20.0-40.0); MEAN CORPUSCULAR HEMOGLOBIN 29.3 pg (27.0-31.0); MEAN CORPUSCULAR HGB CONC 32.3 g/dL (33.0-37.0); MEAN PLATELET VOLUME 11.4 fL (7.2-11.7); MONO # 0.5 K/uL (0.0-0.8); MONO % 12.1 % (0.0-10.0); NEUT # 3.2 K/uL (1.8-7.0); NEUT % 71.7 % (50.0-75.0); RBC 3.79 Mil/uL (4.40-5.90); RED CELL DISTRIBUTION WIDTH 18.6 % (11.5-14.5); WHITE BLOOD COUNT 4.4 K/uL (4.8-10.8)
[2018-03-19 13:04] LABS: HEMOGLOBIN 11.3 g/dL (12.0-18.0); MEAN CELL VOLUME 90.4 fL (80.0-94.0)
[2018-03-19 13:25] LABS: ALB/GLOB RATIO 0.9 (1.0-2.1); ALBUMIN 1.8 g/dL (3.5-5.0); CALCIUM 7.5 mg/dl (8.6-10.4)
--- NOTE | 2018-03-19 13:40 | PN ---
DATE: 03/19/2018 LOCATION: ICU 14, bed B. SUBJECTIVE: This is a 67-year-old male seen and examined in rounds early this morning as I was contacted by Dr. Draper last night regarding the patient's condition, the patient was lethargic subsequently he was intubated with NG tube in place with moderate amount of active bleed coffee-ground material. The patient is still intubated, sedated with traces of coffee-ground material, but no fresh blood. No reported diarrhea, rectal bleeding in the meantime. I requested the CAT scan angiographic to be done yesterday and so far no official report. The most recent chest x-ray report is seen. Today's lab results showed low white blood cells of 4 but hemoglobin 14.6, hematocrit 43.8 with normal platelet count, but less than before with of 35%. PT was 20, PTT 41 as per yesterday with abnormal ABGs. Today's blood glucose level is 59 and lactate is 9.4, potassium 3.5, BUN 58, creatinine 5.9, calcium 8.5. Again with repeat blood glucose level the latest is 82. AST is 7,020 ALT 4245, alkaline phosphatase 247 with excessive increase of the lactate dehydrogenase and total creatinine kinase with troponin level, the latest is 0.7000 that is most likely secondary to acute right-sided failure with reported amylase of 421 but normal lipase level. PHYSICAL EXAMINATION: GENERAL: A 67-year-old male, intubated, sedated with temperature of 102.8, heart rate of 106 with blood pressure of 100/52. HEENT: Showed dry oral mucous membrane. Nonicteric sclerae. LUNGS: Scattered crepitation with decreased air entry at bases bilaterally. HEART: Positive S1 and S2. ABDOMEN: Soft with slight distention. Bowel sounds are hypoactive. No mass or organomegaly. No rebound tenderness or guarding. EXTREMITIES: With lower extremity edematous changes. IMPRESSION: 1. Abnormal liver function tests that is most likely secondary to acute right-sided heart failure, keeping in mind that the total bilirubin is normal and alkaline phosphatase is mildly elevated. 2. Known history of status post partial gastrectomy and the gastrojejunostomy, by history. 3. Upper gastrointestinal blood loss was mild but subsequent drop of hemoglobin and hematocrit, to rule out marginal gastric ulcer at the site of the previous surgery. 4. Abnormal origin CT scan of the abdomen and pelvis with dilated small bowel and elevated amylase level, indicative of acute enteritis. 5. The possibility of ischemic bowel syndrome was raised despite the patient does not have blurry diarrhea and his bowel sounds still active. No abdominal distention noticed in the physical examination so far. Doubting if it is acute ischemic bowel syndrome. 6. Multiple past medical history including mainly but not limited to hypertension, coronary artery disease status post coronary artery bypass graft, hyperlipidemia as well as end-stage renal disease. The patient reported to be on dialysis. 7. Poorly controlled diabetes mellitus. SUGGESTIONS: 1. Continue current supportive treatment. 2. The patient may need upper endoscopy if okay with the legal guardian. 3. Further recommendation to follow. Otherwise peripheral hyperalimentation versus central hyperalimentation to continue. We will follow up closely with you. Amada Sanders MD
--- NOTE | 2018-03-19 15:31 | CT ---
Date of service: 03/19/2018 CTA abdomen and pelvis Indication: ischemic bowel? r/o thrombus Comparison: CT abdomen and pelvis without IV contrast performed 03/18/18 Technique: Contrast dose: 100 mL Visipaque 320 IV Total exam DLP: 998.42 Axial computed tomographic angiogram images of the abdomen and pelvis were performed after bolus administration of nonionic intravenous contrast. Multiplanar, 3D (maximum intensity projection) reconstructions of the aorta were created in the coronal and sagittal planes by the lead medical technologist. This CT exam was performed using 1 or more of the falling dose reduction techniques: Automated exposure control, adjustment of the MAA and/or kV according to patient size, and/or use of iterative reconstruction technique. Findings: Limited views of the inferior thorax: Fluid-filled distal thoracic esophagus. Bibasilar atelectasis. No visible pleural effusion or pneumothorax. Cardiomegaly. Nasogastric tube extends the proximal stomach. Atherosclerotic calcification of the aorta, common iliac arteries, and branches. There is normal course and contour of the abdominal aorta and common iliac arteries. Mild narrowing of the celiac artery and superior mesenteric artery origins. The inferior mesenteric artery origin appears patent. Bilateral renal artery origins appear patent. Extensive atherosclerotic disease in severe stenosis involving the left common iliac artery approximately 75 percent. Severe narrowing/occlusion of the left SFA and to a slightly lesser extent the right SFA. Cholecystectomy. At least 2 probable sub cm splenules. Fatty atrophy of the pancreas. The liver, spleen, and adrenal glands appear otherwise unremarkable. Atrophic bilateral kidneys with small bilateral cysts. No enlarged abdominal lymphadenopathy is identified. Dilated small bowel loops re-identified which may reflect adynamic ileus versus obstruction. Small bowel wall thickening. The patient has undergone partial gastrectomy and gastrojejunostomy. The appendix appears normal. No inflammatory changes are seen in the right lower quadrant to suggest acute appendicitis. No definite free air. The urinary bladder appears unremarkable. No significant pelvic free fluid is identified. Mild ecchymosis, left lower anterior abdominal wall, nonspecific. Medullary gigi, right femur. Osseous demineralization. Extensive degenerative changes. Impression: Dilated small bowel loops re-identified which may reflect adynamic ileus versus obstruction. Small bowel wall thickening may be seen in setting of enteritis. Correlate clinically. Extensive atherosclerotic disease involving the aorta and branches. Mild narrowing of the celiac artery and superior mesenteric artery origins. Extensive atherosclerotic disease also noted with severe stenosis involving the left common iliac artery of approximately 75 percent as well as severe narrowing/occlusion of the left greater than right SFA. Additional findings as above. Preliminary impression was provided by [employer].
[2018-03-19] MEDS: EPINEPHrine- 4 MG in Sodium Chloride 0.9% 1,000 ML IV PRN ×2 (15:45→19:56)
[2018-03-19] MEDS ORDERED: DOBUTamine 500mg/250ml D5W 500 MG/250 ML BAG IV PRN (15:45)
[2018-03-19 16:22] VITALS: RESP 20
--- NOTE | 2018-03-19 17:14 | PN ---
DATE: 03/19/2018 SUBJECTIVE: The patient had a cardiac arrest and a pulseless electrical activity around 9:50 this morning. The patient received CPR and calcium chloride bicarbonate and 1 L of normal saline and resuscitation was achieved at 9:54 with strong femoral pulse. The patient is currently on maximum norepinephrine and dopamine infusion. No reported intricate tachycardia. PHYSICAL EXAMINATION: VITAL SIGNS: Blood pressure 160/30, heart rate 109, and temperature 102.8. HEENT: No pallor. CHEST: Minimal rhonchi. HEART: S1 and S2 regular. EXTREMITIES: No edema. LABORATORY DATA: Today's hemoglobin and hematocrit 14.6 and 43.8, white count 4, and platelet count 130,000. Today's SMA-7: Sodium 135, potassium 3.5, chloride 88, CO2 of 26, glucose 79, BUN 58, and creatinine 5.9. Yesterday's troponin was 38.7. Blood cultures are negative after [address] angiogram was performed yesterday and the report is still pending. ASSESSMENT: 1. Non-ST elevation myocardial infarction. 2. Hypertension, rule out underlying sepsis. 3. Rule out acute ischemic bowel syndrome. 4. End-stage renal disease, on hemodialysis. 5. Significantly elevated liver enzymes. The AST and ALT today are 7020 and 4240 respectively. Ammonia level yesterday was less than 9. RECOMMENDATIONS: The case was discussed in detail with the patient's family including the patient's daughter at the bedside. The patient's condition is very critical and unstable and he is not a candidate for any invasive cardiac workup or any vascular surgical intervention. Continue current maximum therapy and IV fluid. Continue IV meropenem at 500 mg every 12 hours, IV Protonix 40 mg intravenously every 12 hours, and IV vancomycin 500 mg Sunday, Sunday, and Sunday. I will discuss with Dr. Lanier, the single stayer operator the need for neurological evaluation. Christian Hebert MD
[2018-03-19 20:24] VITALS: TEMP 98.3
[2018-03-19 22:30] LABS: ARTERIAL BLOOD GAS HCO3 11.1 mmol/L (21-28); ARTERIAL BLOOD GAS O2 SAT 96.9 % (95-98); ARTERIAL BLOOD GAS PCO2 37 mm/Hg (35-45); ARTERIAL BLOOD GAS PH 7.09 (7.35-7.45); ARTERIAL BLOOD GAS PO2 356 mm/Hg (80-100); ARTERIAL BLOOD GAS TCO2 12.3 mmol/L (22-28)
[2018-03-19 23:09] VITALS: BP 45/24; PULSE 83; O2SAT 78
[2018-03-19] MEDS ORDERED: Morphine 4 MG/ML VIAL IV ONE (23:15)
--- NOTE | 2018-03-19 23:19 | CP.PCM.PN ---
Subjective - Date & Time of Evaluation Date of Evaluation: 03/19/18 Time of Evaluation: 23:16 - Subjective Subjective: Patient's 2 sisters and all family at bedside earlier requested DNR but not after arrival of the whole family decided withdrawal of care. Objective - Vital Signs/Intake and Output Vital Signs (last 24 hours): Temp Pulse Resp BP Pulse Ox 98.3 F 83 20 45/24 L 78 L 03/19/18 20:00 03/19/18 23:00 03/19/18 23:00 03/19/18 23:00 03/19/18 23:00 Intake and Output: 03/19/18 03/20/18 18:59 06:59 Intake Total 5333.0 3806.0 Output Total 500 Balance 4833.0 3806.0 - Medications Medications: Current Medications Clopidogrel Bisulfate (Plavix) 75 mg PO DAILY [facility] Last Admin: 03/19/18 10:00 Dose: Not Given Dextrose (Dextrose 50% Inj) 0 ml IV STAT PRN; Protocol PRN Reason: Hypoglycemia Protocol Dextrose (Glutose 15) 0 gm PO ONCE PRN; Protocol PRN Reason: Hypoglycemia Protocol Glucagon (Glucagen Diagnostic Kit) 0 mg IM STAT PRN; Protocol PRN Reason: Hypoglycemia Protocol Hydrocortisone Sodium Succinate (Solu-Cortef) 100 mg IV Q8H [facility] Last Admin: 03/19/18 17:40 Dose: 100 mg Meropenem 500 mg/ Sodium (Chloride) 100 mls @ 100 mls/hr IVPB Q12H [facility]; Protocol Last Admin: 03/19/18 14:00 Dose: 100 mls/hr Norepinephrine Bitartrate 4 mg (/ Dextrose) 254 mls @ 15.24 mls/hr IV .[id number] PRN; Protocol PRN Reason: TITRATE PER MD ORDER Last Admin: 03/19/18 20:33 Dose: 30 mcg/min, 114.3 mls/hr Vancomycin HCl 500 mg/ Sodium (Chloride) 100 mls @ 100 mls/hr IVPB MWF [facility]; Protocol Dextrose (Dextrose 5% In Water 1000 Ml) 1,000 mls @ 0 mls/hr IV .Q0M PRN; Prot ocol PRN Reason: Hypoglycemia Protocol Dexmedetomidine HCl 200 mcg/ (Sodium Chloride) 50 mls @ 3.52 mls/hr IV TITR PRN; Protocol Last Titration: 03/19/18 08:00 Dose: Infused Vasopressin 40 units/ Dextrose 40 mls @ 2.4 mls/hr IV .[id number] [facility] Last Admin: 03/19/18 18:15 Dose: 2.4 mls/hr Sodium Bicarbonate 150 meq/ (Dextrose) 1,150 mls @ 75 mls/hr IV .[id number] [facility] Last Admin: 03/19/18 16:30 Dose: 75 mls/hr Epinephrine HCl 4 mg/ Sodium (Chloride) 1,004 mls @ 15.06 mls/hr IV .Q24H PRN; Protocol PRN Reason: TITRATE PER MD ORDER Last Admin: 03/19/18 19:56 Dose: 20 mcg/min, 301.2 mls/hr Midodrine (Proamatine) 5 mg PO TID [facility] Last Admin: 03/19/18 19:00 Dose: Not Given Morphine Sulfate (Morphine) 4 mg IV ONCE ONE Stop: 03/19/18 23:16 Ondansetron HCl (Zofran Inj) 4 mg IVP Q8 PRN PRN Reason: Nausea/Vomiting Last Admin: 03/17/18 23:43 Dose: 4 mg Pantoprazole Sodium (Protonix Inj) 40 mg IVP Q12H [facility] Last Admin: 03/19/18 12:18 Dose: 40 mg Rosuvastatin Calcium (Crestor) 5 mg PO HS [facility] Last Admin: 03/17/18 22:23 Dose: 5 mg Sevelamer Carbonate (Renvela) 800 mg PO TID [facility] Last Admin: 03/19/18 19:00 Dose: Not Given Thiamine HCl (Vitamin B1 Inj) 200 mg IV Q8H [facility] Last Admin: 03/19/18 17:40 Dose: 200 mg Vitamin B Complex/Vit C/Folic Acid (Nephro-Benjamin) 1 tab PO 0800 [facility] Last Admin: 03/19/18 09:00 Dose: Not Given - Labs Labs: 03/19/18 12:43 03/19/18 12:43 PT 30.6 SECONDS (9.7-12.2) H D 03/19/18 12:43 INR 2.8 D 03/19/18 12:43 APTT 46 SECONDS (21-34) H D 03/19/18 12:43
--- NOTE | 2018-03-20 01:38 | CP.PCM.PRO ---
Pronouncement of Note - Clinical Findings Physical Exam: No Response Verbal/Painful Stimuli, Absent Peripheral Puls es{Carotid & Femoral}, Absent Heart & Breath Sounds, No Pupillary Light Reflex, No Corneal Reflex, Pupils Fixed & Dilated, Absence of Vital Signs - Pronouncement Time Time of Pronouncement of : 11:09 (pm) - Notifications Pronouncement Notifications: Family Notified (at the bedside) Leather Worker Notified: No - Autopsy Autopsy Requested: No - N.Priscila Certificate [place]: [id number] Additional Comments: The family was at the bedside and requested withdrawal of the care, prior to attempt, he became asystole on the monitor, he was DNR and pronounced at 1109 pm. PMD and rest of primary team will be notificed by nursing.
--- NOTE | 2018-03-20 08:05 | PCM.SEPTIC ---
Sepsis Progress Note - Reassessment Type Date of Evaluation: 03/18/18 Time of Evaluation: 17:00 Reassessment Type: Non-invasive reassessment - Non Invasive Reassessment Were the most recent vital sign reviewed: Yes Vital Sign (Latest): Temp Pulse Resp BP Pulse Ox 98.3 F 83 20 45/24 L 78 L 03/19/18 20:00 03/19/18 23:00 03/19/18 23:00 03/19/18 23:00 03/19/18 23:00 Cardiovascular: Yes: Regular Rate, Rhythm, Tachycardia Respiratory: Yes: Accessory Muscle Use, Respiratory Distress Capillary Refill: Delayed Skin: Dry Fluid Challenge performed: Yes
--- NOTE | 2018-03-20 13:33 | PN ---
DATE: 03/16/2018 The patient had chest pain and rapid response was called. The patient apparently received one sublingual nitroglycerin. An EKG was performed that was faxed to me. Although the computer read it as sinus tachycardia with frequent PVCs and ventricular bigemini, it was clearly sinus rhythm at the rate of 70 with possible left atrial enlargement, right bundle-branch block and inferior infarct. The case was discussed with the staff scientist on-call, Dr. Ferrell, who did evaluate the patient in 10/2017 and performed cardiac catheterization and as per our recollection, nothing can be done in interventional basis to this patient, and he would evaluate the patient tomorrow for an interventional cardiology consult. In the meantime, the patient was evaluated by rapid response team and was not considered a candidate who needed ICU. Christian Hebert MD
--- NOTE | 2018-03-21 10:16 | CARD ---
APPROVED REPORT Date of service: 03/18/2018 EKG Measurement Heart [id number] <Conclusion> Sinus rhythm with premature atrial complexes Right bundle branch block Left anterior fascicular block Bifascicular block Inferior infarct, age undetermined Abnormal ECG
== END 2018-03-20 02:47 | DRG 871 ==
LOC: C.ER 20:55 → C.6T 22:34 → C.9I 03-18 15:46
PROVIDERS: ADMIT Specialist; ATTEND Specialist
PROC: 5A1D70Z Performance of Urinary Filtration, Intermittent, Less than 6 Hours Per Day (ICD-10-PCS; principal; 2018-03-17)
PROC: 0BH17EZ Insertion of Endotracheal Airway into Trachea, Via Natural or Artificial Opening (ICD-10-PCS; 2018-03-18)
PROC: 5A09357 Assistance with Respiratory Ventilation, Less than 24 Consecutive Hours, Continuous Positive Airway Pressure (ICD-10-PCS; 2018-03-18)
PROC: 5A1935Z Respiratory Ventilation, Less than 24 Consecutive Hours (ICD-10-PCS; 2018-03-18)
PROC: 5A12012 Performance of Cardiac Output, Single, Manual (ICD-10-PCS; 2018-03-19)
PROC: 03HY32Z Insertion of Monitoring Device into Upper Artery, Percutaneous Approach (ICD-10-PCS; 2018-03-19)
DX: A41.9 Sepsis, unspecified organism (principal); N18.6 End stage renal disease; I13.2 Hypertensive heart and chronic kidney disease with heart failure and with stage 5 chronic kidney disease, or end stage renal disease; N25.81 Secondary hyperparathyroidism of renal origin; I45.2 Bifascicular block; I25.810 Atherosclerosis of coronary artery bypass graft(s) without angina pectoris; G93.1 Anoxic brain damage, not elsewhere classified; E11.22 Type 2 diabetes mellitus with diabetic chronic kidney disease; E11.65 Type 2 diabetes mellitus with hyperglycemia; E78.5 Hyperlipidemia, unspecified; E83.39 Other disorders of phosphorus metabolism; E87.5 Hyperkalemia; F17.200 Nicotine dependence, unspecified, uncomplicated; I25.10 Atherosclerotic heart disease of native coronary artery without angina pectoris; I25.2 Old myocardial infarction; K27.9 Peptic ulcer, site unspecified, unspecified as acute or chronic, without hemorrhage or perforation; Z95.1 Presence of aortocoronary bypass graft; Z99.2 Dependence on renal dialysis; R74.0 Nonspecific elevation of levels of transaminase and lactic acid dehydrogenase [LDH]; R74.8 Abnormal levels of other serum enzymes; R94.5 Abnormal results of liver function studies; D64.9 Anemia, unspecified; Z66 Do not resuscitate; E11.649 Type 2 diabetes mellitus with hypoglycemia without coma; R57.0 Cardiogenic shock; I50.811 Acute right heart failure